=== PATIENT | female | born 1930 | race Caucasian/White ===

== ENCOUNTER → 2016-10-29 | Outpatient (CLI) | payer MEDICARE, OTHER ==
[~2016-10-29] MED LIST: AC500T PO; AMLO10TA2 PO; CHOL10002 PO; CIPR500T78 PO; CITA20TA12 PO; CITA20TA7 PO; CLON1TAB27 PO; CLON1TAB3 PO; CRAN450T9 PO; D-3 PO; DARI7.5T8 PO; DCS100C PO; ENXP80I.8 SC; FLUO20CA25 PO; FLUO20CA42 PO; HYDR50TA3 PO; IBUP-30 PO; IBUP-792 PO; IRON PO; LISI10TA2 PO; MELO-195 PO; MELO15TA39 PO; MULT-23 PO; MULT-904 PO; MULT-974 PO; OMEP-10 PO; OMEP20CA12 PO; OXYB10TA PO; OXYC-100 PO; OXYC-12 PO; PEDI1TAB36 PO; POTA10CA43 PO; SIMV20TA3 PO; WARFARIN PO; [UNRECOGNIZED DRUG - CODE] PO; [UNRECOGNIZED DRUG - OTHER] PO
[2016-10-29 08:37] LABS: BASOPHILS % (AUTO) 1 % (0-10); EOSINOPHILS # (AUTO) 0.2 10^3/uL (0.0-0.3); EOSINOPHILS % (AUTO) 3 % (0-10); LYMPHOCYTES # (AUTO) 1.6 X 10^3 (1.0-4.0); LYMPHOCYTES % (AUTO) 35 % (12-44); MEAN CORPUSCULAR HEMOGLOBIN 30 PG (25-34); MEAN CORPUSCULAR HGB CONC 33 G/DL (32-36); MEAN CORPUSCULAR VOLUME 93 FL (80-99); MONOCYTES # (AUTO) 0.6 X 10^3 (0.0-1.0); MONOCYTES % (AUTO) 13 % (0-12); NEUTROPHILS # (AUTO) 2.2 X 10^3 (1.8-7.8); NEUTROPHILS % (AUTO) 47 % (42-75); PLATELET COUNT 275 10^3/uL (130-400); RED BLOOD COUNT 4.79 10^6/uL (4.35-5.85); RED CELL DISTRIBUTION WIDTH 13.6 % (10.0-14.5); RETICULOCYTE % 0.76 % (0.50-2.40); WHITE BLOOD COUNT 4.6 10^3/uL (4.3-11.0)
[2016-10-29 08:44] LABS: PATH WILL NEED TO REVIEW SMEAR PATH TO REVIEW
[2016-10-29 08:53] LABS: EOSINOPHILS % (MANUAL) 3 %; LYMPHOCYTES % (MANUAL) 36 %; NEUTROPHILS % (MANUAL) 48 %
== END ==
LOC: LAB 08:14
PROVIDERS: ATTEND Nurse Practitioner Family
DX: D72.819 Decreased white blood cell count, unspecified (principal); D64.9 Anemia, unspecified
CPT/HCPCS: 36415; 85007; 85027; 85045

== ENCOUNTER 2017-08-08 21:21 | Inpatient (IN) | payer MEDICARE, OTHER ==
[~2017-08-08] VITALS: Ht 162.6 cm; Wt 73.0 kg
[~2017-08-08 21:21] MED LIST changes: -CITA20TA7 PO; +CITA20TA9 PO; +CLON1TAB4 PO
--- OUTSIDE RECORDS SUMMARY | 2017-08-08 21:26 | XMS REPORT | CCD ---
Author Author Morenita Don MD, [facility] Address [address] [place] [address] Phone Care Team Providers Care Director Of Communications Name Role Phone PP Unavailable CCM Unavailable Summary Purpose Interface Exchange Insurance Providers Payer name Policy type / Coverage type Covered republican ID Effective Begin Date Effective End Date [employer] Medicare Part B [id number] 2016 Unknown [employer] Medicare Part B [id number] Unknown Family history Father Diagnosis Age At Onset Myocardial infarction Unknown Mother Diagnosis Age At Onset Myocardial infarction Unknown Social History Social History Element Codes Description Effective Dates Marital status Unknown 11/29/2015 Number of children Unknown 2 son at 3hrs old 11/29/2015 Employment Unknown Retired 11/29/[address]: 752281503 Never smoker 11/29/[address]: 780164150 Never drinks alcohol 11/29/2015 Allergies, Adverse Reactions, Alerts Allergies, Adverse Reactions, Alerts data not found Past Medical History Illness Codes Condition Status Onset Date Resolved Date Essential (primary) hypertension ICD-9: 401.9 ICD-10: I10 Active 02/27/2016 Unknown Generalized anxiety disorder ICD-9: 300.02 ICD-10: F41.1 Active 02/27/2016 Unknown Major depressive disorder, recurrent, 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 Active 02/27/2016 Unknown Encounter for general adult medical examination without abnormal findings ICD-9: V70.0 ICD-10: Z00.00 Active 08/23/2016 Unknown Mixed hyperlipidemia ICD-9: 272.2 ICD-10: E78.2 Active 11/28/2015 Unknown Hypertension Unknown Active 08/21/2016 Unknown Gastro-esophageal reflux disease without esophagitis ICD-9: 530.81 ICD-10: K21.9 Active 05/28/2016 Unknown Problems Condition Codes Effective Dates Condition Status Essential (primary) hypertension ICD-9: 401.9 ICD-10: I10 02/27/2016 Active Generalized anxiety disorder ICD-9: 300.02 ICD-10: F41.1 02/27/2016 Active Major depressive disorder, recurrent, 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 02/27/2016 Active Encounter for general adult medical examination without abnormal findings ICD-9: V70.0 ICD-10: Z00.00 08/23/2016 Active Mixed hyperlipidemia ICD-9: 272.2 ICD-10: E78.2 11/28/2015 Active Hypertension Unknown 08/21/2016 Active Gastro-esophageal reflux disease without esophagitis ICD-9: 530.81 ICD-10: K21.9 05/28/2016 Active Medications Medication Codes Instructions Start Date Stop Date Status Fill Instructions omeprazole 20 mg capsule,delayed release RxNorm: 415707 Capsule(s) TAKE 1 CAPSULE BY MOUTH EVERY DAY 06/03/2017 02/27/2018 Active Mobic 15 mg tablet RxNorm: 296139 Tablet(s) 1 TABLET(S) PO DAILY 06/03/2017 02/27/2018 Active amlodipine 10 mg tablet RxNorm: 111580 Tablet(s) TAKE 1 TABLET BY MOUTH EVERY DAY 06/03/2017 02/27/2018 Active metoprolol succinate ER 25 mg tablet,extended release 24 hr RxNorm: 115700 1 Tablet(s) PO daily 06/03/2017 02/27/2018 Active lisinopril 10 mg tablet RxNorm: 000017 Tablet(s) TAKE 1 TABLET BY MOUTH EVERY DAY 06/03/2017 02/27/2018 Active Lexapro 20 mg tablet RxNorm: 822459 1 Tablet(s) PO QPM 201702/27/2018 Active clonazepam 1 mg tablet RxNorm: 982505 1 Tablet(s) PO TID 201711/29/2017 Active potassium chloride ER 10 mEq tablet,extended release RxNorm: 246224 Tablet(s) TAKE 2 TABLETS BY MOUTH EVERY DAY 06/03/2017 02/27/2018 Active simvastatin 20 mg tablet RxNorm: 122203 Tablet(s) 1 TABLET(S) PO QPM 06/03/2017 02/27/2018 Active Mobic 15 mg tablet RxNorm: 157835 1 TABLET(S) PO DAILY 201606/02/2017 Inactive lisinopril 10 mg tablet RxNorm: 092472 TAKE 1 TABLET BY MOUTH EVERY DAY 04/05/2017 06/02/2017 Inactive metoprolol succinate ER 25 mg tablet,extended release 24 hr RxNorm: 955190 1 Tablet(s) PO daily 02/01/2017 06/02/2017 Inactive Lexapro 20 mg tablet RxNorm: 553871 1 Tablet(s) PO QPM TAKE 1 TABLET BY MOUTH EVERY EVENING 02/01/2017 02/01/2017 Inactive Lexapro 20 mg tablet RxNorm: 610474 1 Tablet(s) PO QPM 1 TABLET(S) PO QPM TAKE 1 TABLET BY MOUTH EVERY EVENING 02/01/2017 06/02/2017 Inactive Patient requests 90 days supply clonazepam 1 mg tablet RxNorm: 209707 1 Tablet(s) PO TID 201606/02/2017 Inactive Lexapro 20 mg tablet RxNorm: 943259 1 Tablet(s) PO QPM 1 TABLET(S) PO QPM TAKE 1 TABLET BY MOUTH EVERY EVENING 02/01/2017 01/31/2017 Inactive Patient requests 90 days supply metoprolol succinate ER 25 mg tablet,extended release 24 hr RxNorm: 000973 1 Tablet(s) PO daily 02/01/2017 01/31/2017 Inactive amlodipine 10 mg tablet RxNorm: 422958 TAKE 1 TABLET BY MOUTH EVERY DAY 01/15/2017 06/02/2017 Inactive potassium chloride ER 10 mEq tablet,extended release RxNorm: 995057 TAKE 2 TABLETS BY MOUTH EVERY DAY 12/04/201607/2017 Inactive Lexapro 20 mg tablet RxNorm: 663388 TAKE 1 TABLET BY MOUTH EVERY EVENING 11/12/2016 01/31/2017 Inactive omeprazole 20 mg capsule,delayed release RxNorm: 591828 TAKE 1 CAPSULE BY MOUTH EVERY DAY 10/29/2016 10/28/2016 Inactive omeprazole 20 mg capsule,delayed release RxNorm: 547050 TAKE 1 CAPSULE BY MOUTH EVERY DAY 10/29/2016 06/02/2017 Inactive L-Methylfolate 15 mg tablet RxNorm: 1 Tablet(s) PO daily 10/0801/31/2017 Inactive clonazepam 1 mg tablet RxNorm: 054790 1 Tablet(s) PO BID 201601/31/2017 Inactive L-Methylfolate 15 mg tablet RxNorm: 1 Tablet(s) PO daily 08/2810/07/2016 Inactive lisinopril 20 mg tablet RxNorm: 167870 1 Tablet(s) PO daily 11/18/2016 Inactive lisinopril 20 mg tablet RxNorm: 044074 1 Tablet(s) PO daily 11/18/2016 Inactive Deplin (algal oil) 15 mg-90.314 mg capsule RxNorm: 1 Capsule(s) PO daily 08/21/2016 08/27/2016 Inactive Lexapro 20 mg tablet RxNorm: 402852 1 TABLET(S) PO QPM 201610/24/2016 Inactive simvastatin 20 mg tablet RxNorm: 372122 1 TABLET(S) PO QPM 11/19/2016 Inactive Patient requests 90 days supply simvastatin 20 mg tablet RxNorm: 789071 1 Tablet(s) PO QPM 05/23/2016 Inactive Lexapro 20 mg tablet RxNorm: 875733 1 Tablet(s) PO QPM 1 TABLET(S) PO QPM 02/28/2016 08/25/2016 Inactive Patient requests 90 days supply Lexapro 20 mg tablet RxNorm: 724258 1 Tablet(s) PO QPM 201502/28/2016 Inactive clonazepam 1 mg tablet RxNorm: 230235 1 Tablet(s) PO BID 201505/25/2016 Inactive tramadol 50 mg tablet RxNorm: 638326 1 Tablet(s) PO Q6 as needed for pain 02/27/2016 04/11/2016 Inactive potassium chloride ER 10 mEq tablet,extended release RxNorm: 507203 TAKE 2 TABLETS BY MOUTH EVERY DAY 02/27/2016 Inactive citalopram 20 mg tablet RxNorm: 280585 1 Tablet(s) PO QAM 02/2602/27/2016 Inactive omeprazole 20 mg capsule,delayed release RxNorm: 798833 TAKE 1 CAPSULE BY MOUTH EVERY DAY 02/13/2016 10/28/2016 Inactive Mobic 15 mg tablet RxNorm: 097170 1 Tablet(s) PO daily 201502/03/2017 Inactive amlodipine 10 mg tablet RxNorm: 834238 1 Tablet(s) PO daily 05/201512/28/2015 Inactive Multiple Vitamins Daily tablet RxNorm: 1 Tablet(s) PO daily 12/28/2015 Inactive clonazepam 1 mg tablet RxNorm: 194611 1 Tablet(s) PO Q12H 11/2812/28/2015 Inactive Mobic 15 mg tablet RxNorm: 721675 1 Tablet(s) PO daily 201512/28/2015 Inactive lisinopril 10 mg tablet RxNorm: 239042 1 Tablet(s) PO daily 05/201512/26/2015 Inactive simvastatin 20 mg tablet RxNorm: 346675 1 Tablet(s) PO QPM 05/201512/28/2015 Inactive Colace 100 mg capsule RxNorm: 1546986 1 Capsule(s) PO daily 05/201511/29/2015 Inactive citalopram 20 mg tablet RxNorm: 369950 1 Tablet(s) PO QAM 11/2812/28/2015 Inactive potassium chloride ER 10 mEq tablet,extended release RxNorm: 570041 2 Tablet(s) PO daily 20meq daily 11/29/20152015 Inactive Coricidin HBP 10 mg-200 mg capsule RxNorm: 1450468 1 Capsule(s) PO PRN No Start Date Active cranberry 400 mg capsule RxNorm: 857932 1 Capsule(s) PO daily No Start Date Active Vitamin D3 1,000 unit tablet RxNorm: 062899 1 Tablet(s) PO daily No Start Date Active docusate sodium 100 mg tablet RxNorm: 8544530 1 Tablet(s) PO daily No Start Date Active Mobic 15 mg tablet RxNorm: 670023 1 Tablet(s) PO daily No Start Date 02/09/2016 Inactive Vitamin D3 1,000 unit tablet RxNorm: 452887 1 Tablet(s) PO daily No Start Date 06/02/2017 Inactive omeprazole 20 mg tablet,delayed release RxNorm: 490673 1 Tablet(s) PO daily No Start Date 06/02/2017 Inactive potassium chloride ER 10 mEq tablet,extended release RxNorm: 003818 2 Tablet(s) PO daily No Start Date 06/02/2017 Inactive clonazepam 1 mg tablet RxNorm: 936528 1 Tablet(s) PO BID No Start Date 02/26/2016 Inactive Aleve PM 220 mg-25 mg tablet RxNorm: 1267566 1 Tablet(s) PO daily No Start Date 05/27/2016 Inactive amlodipine 10 mg tablet RxNorm: 706723 1 Tablet(s) PO daily No Start Date 01/14/2017 Inactive lisinopril 10 mg tablet RxNorm: 366880 1 Tablet(s) PO daily No Start Date 08/20/2016 Inactive tramadol 50 mg tablet RxNorm: 773486 1 Tablet(s) PO Q6 PRN No Start Date 02/26/2016 Inactive Ultram 50 mg tablet RxNorm: 163157 1 Tablet(s) PO Q6 as needed No Start Date 11/28/2015 Inactive simvastatin 20 mg tablet RxNorm: 892028 1 Tablet(s) PO QHS No Start Date 06/02/2017 Inactive citalopram 20 mg tablet RxNorm: 625002 1 Tablet(s) PO daily No Start Date 02/26/2016 Inactive lisinopril 10 mg tablet RxNorm: 530239 1 Tablet(s) PO daily No Start Date 04/04/2017 Inactive omeprazole 20 mg capsule,delayed release RxNorm: 463474 1 Capsule(s) PO daily No Start Date 02/12/2016 Inactive Medication Administered No Medication Administered data Immunizations No Immunization data Assessments Condition Codes Effective Dates Essential (primary) hypertension ICD-10: I10 ICD-9: 401.9 02/01/2017 Generalized anxiety disorder ICD-10: F41.1 ICD-9: 300.02 02/01/2017 Major depressive disorder, recurrent, mild ICD-10: F33.0 ICD-9: 296.31 02/01/2017 Mixed hyperlipidemia ICD-10: E78.2 ICD-9: 272.2 08/23/2016 Encounter for general adult medical examination without abnormal findings ICD-10: Z00.00 ICD-9: V70.0 08/23/2016 Gastro-esophageal reflux disease without esophagitis ICD-10 : K21.9 ICD-9: 530.81 05/28/2016 Reason For Visit Reason For Visit Effective Dates Notes depression 02/01/2017 hypertension 08/21/2016 hypertension 05/28/2016 hypertension 02/28/2016 cerumen 11/29/2015 Results Observation Observation Code Item Item Code Result Date Lipid Ord30 CHOL 155 mg/dL 10/09/2016 Lipid Ord30 HDL 55.0 mg/dl 10/09/2016 Lipid Ord30 TRIG 121 mg/dL 10/09/2016 Lipid Ord30 LDL 76 mg/dL 10/09/2016 Lipid Ord30 C/HDL 2.8 Ratio 10/09/2016 Comp Metabolic Aod262 NA 136 mEq/L 10/09/2016 Comp Metabolic Qny192 K 4.9 mEq/L 10/09/2016 Comp Metabolic Qzx006 CL 97 mEq/L 10/09/2016 Comp Metabolic Smq469 CO2 30.0 mEq/L 10/09/2016 Comp Metabolic Mhq864 ANION GAP 14 10/09/2016 Comp Metabolic Jba234 GLUCOSE 66 mg/dL 10/09/2016 Comp Metabolic Pjw859 Creat 0.9 mg/dL 10/09/2016 Comp Metabolic Uwh461 eGFR 64 ml/min/1.73m2 10/09/2016 Comp Metabolic Ljf662 BUN 13 mg/dL 10/09/2016 Comp Metabolic Uld905 B/C Ratio 14.6 Ratio 10/09/2016 Comp Metabolic Oao796 CALCIUM 10.0 mg/dL 10/09/2016 Comp Metabolic Lvd228 ALK PHOS 59 U/L 10/09/2016 Comp Metabolic Grh237 AST(SGOT) 20 U/L 10/09/2016 Comp Metabolic Lri107 ALT(SGPT) 9 U/L 10/09/2016 Comp Metabolic Rfq245 BILI T 0.4 mg/dL 10/09/2016 Comp Metabolic Nii362 ALBUMIN 4.1 g/dL 10/09/2016 Comp Metabolic Rll900 TPRO 7.1 g/dL 10/09/2016 Comp Metabolic Clr625 GLOB 3.0 g/dL 10/09/2016 Comp Metabolic Gbd838 A/G Ratio 1.4 Ratio 10/09/2016 Comp Metabolic Wed249 Osmo 270 mOsmo 10/09/2016 Tsh Ord6 hTSH II 1.11 uIU/mL 10/09/2016 Cbc With Differential Ord2 WBC 4.46 K/ul 10/09/2016 Cbc With Differential Ord2 RBC 5.07 M/ul 10/09/2016 Cbc With Differential Ord2 HGB 15.8 g/dl 10/09/2016 Cbc With Differential Ord2 Neut% 50.2 % 10/09/2016 Cbc With Differential Ord2 HCT 47.6 % 10/09/2016 Cbc With Differential Ord2 MCV 93.9 fl 10/09/2016 Cbc With Differential Ord2 Lymph% 33.4 % 10/09/2016 Cbc With Differential Ord2 MCH 31.2 pg 10/09/2016 Cbc With Differential Ord2 [place]% 13.7 % 10/09/2016 Cbc With Differential Ord2 MCHC 33.2 pg 10/09/2016 Cbc With Differential Ord2 Eos% 2.0 % 10/09/2016 Cbc With Differential Ord2 PLT 244 K/ul 10/09/2016 Cbc With Differential Ord2 Baso% 0.7 % 10/09/2016 Cbc With Differential Ord2 RDW 13.9 % 10/09/2016 Cbc With Differential Ord2 Neut ABS# 2.24 K/ul 10/09/2016 Cbc With Differential Ord2 Lymph ABS# 1.49 K/ul 10/09/2016 Cbc With Differential Ord2 [place] ABS# 0.6 K/ul 10/09/2016 Cbc With Differential Ord2 Eos ABS# 0.1 K/ul 10/09/2016 Cbc With Differential Ord2 Baso ABS# 0.0 K/ul 10/09/2016 Review of Systems System Result Effective Dates Constitutional No recent illness 2016 Constitutional No anorexia 02/01/2017 Constitutional No night sweats 2016 Constitutional No chills 02/01/2017 Constitutional No diaphoresis 02/01/2017 Constitutional No fatigue 02/01/2017 Constitutional No fever 02/01/2017 Constitutional insomnia 02/01/2017 Constitutional No malaise 02/01/2017 Constitutional No weight loss 02/01/2017 Constitutional No weight gain 02/01/2017 Eyes No eye discharge 02/01/2017 Eyes No eye erythema 02/01/2017 Ears/Nose/Throat/Neck No dizziness 2016 Ears/Nose/Throat/Neck No headache 2016 Cardiovascular No chest pain/pressure 09/2016 Cardiovascular No dyspnea 02/01/2017 Cardiovascular edema 02/01/2017 Respiratory No productive sputum 2016 Respiratory No chest congestion 2016 Respiratory No cough 02/01/2017 Gastrointestinal No abdominal pain 2016 Gastrointestinal No constipation 2016 Gastrointestinal No diarrhea 02/01/2017 Genitourinary/Nephrology No dysuria 02/01 Genitourinary/Nephrology urinary incontinence 02/01/2017 Musculoskeletal No joint complaint 2016 Dermatologic No rash 02/01/2017 Dermatologic No sores 02/01/2017 Neurologic No alteration of consciousness 02/01/2017 Psychiatric anxiety 02/01/2017 Psychiatric depression 02/01/2017 Endocrine No dry or coarse skin 2016 Hematologic/Lymphatic No abnormal ecchymoses 02/01/2017 Constitutional recent illness 08/21/2016 Constitutional No anorexia 08/21/2016 Constitutional No night sweats 2016 Constitutional No chills 08/21/2016 Constitutional No diaphoresis 08/21/2016 Constitutional fatigue 08/21/2016 Constitutional No fever 08/21/2016 Constitutional insomnia 08/21/2016 Constitutional No malaise 08/21/2016 Constitutional No weight loss 08/21/2016 Constitutional No weight gain 08/21/2016 Constitutional No obesity 08/21/2016 Eyes No eye pain 08/21/2016 Eyes No vision change 08/21/2016 Ears/Nose/Throat/Neck No dizziness 2016 Ears/Nose/Throat/Neck No headache 2016 Cardiovascular No chest pain/pressure Cardiovascular No dyspnea 08/21/2016 Respiratory No chest congestion 2016 Respiratory No chest tightness 2016 Respiratory No cigarette smoking 2016 Respiratory No cough 08/21/2016 Respiratory No productive sputum 2016 Respiratory No pedal edema 08/21/2016 Gastrointestinal No constipation 2016 Gastrointestinal No diarrhea 08/21/2016 Gastrointestinal No abdominal pain 2016 Gastrointestinal No nausea 08/21/2016 Gastrointestinal No vomiting 08/21/2016 Genitourinary/Nephrology No anuria/oliguria 08/21/2016 Genitourinary/Nephrology No dysuria 08/21 Genitourinary/Nephrology urinary urgency 08/21/2016 Genitourinary/Nephrology urinary incontinence 08/21/2016 Musculoskeletal stiffness 08/21/2016 Musculoskeletal swelling 08/21/2016 Musculoskeletal arthralgia(s) 08/21/2016 Musculoskeletal back pain 08/21/2016 Musculoskeletal joint complaint 2016 Musculoskeletal myalgias 08/21/2016 Dermatologic No rash 08/21/2016 Dermatologic No sores 08/21/2016 Neurologic No alteration of consciousness 08/21/2016 Neurologic No headache 08/21/2016 Psychiatric anxiety 08/21/2016 Psychiatric depression 08/21/2016 Endocrine No polydipsia 08/21/2016 Endocrine No polyuria 08/21/2016 Hematologic/Lymphatic No abnormal ecchymoses 08/21/2016 Hematologic/Lymphatic No abnormal bleeding and bruising 08/21/2016 Constitutional No recent illness 2016 Constitutional No anorexia 05/28/2016 Constitutional No night sweats 2016 Constitutional No chills 05/28/2016 Constitutional No diaphoresis 05/28/2016 Constitutional No fatigue 05/28/2016 Constitutional No fever 05/28/2016 Constitutional insomnia 05/28/2016 Constitutional No malaise 05/28/2016 Constitutional No weight loss 05/28/2016 Constitutional No weight gain 05/28/2016 Eyes No eye discharge 05/28/2016 Eyes No eye erythema 05/28/2016 Ears/Nose/Throat/Neck No dizziness 2016 Ears/Nose/Throat/Neck No headache 2016 Cardiovascular No chest pain/pressure Cardiovascular No dyspnea 05/28/2016 Cardiovascular edema 05/28/2016 Respiratory No productive sputum 2016 Respiratory No chest congestion 2016 Respiratory No cough 05/28/2016 Gastrointestinal No abdominal pain 2016 Gastrointestinal No constipation 2016 Gastrointestinal No diarrhea 05/28/2016 Genitourinary/Nephrology No dysuria 05/28 Genitourinary/Nephrology urinary frequency 05/28/2016 Genitourinary/Nephrology urinary incontinence 05/28/2016 Musculoskeletal No joint complaint 2016 Dermatologic No rash 05/28/2016 Dermatologic No sores 05/28/2016 Neurologic No alteration of consciousness 05/28/2016 Psychiatric anxiety 05/28/2016 Psychiatric depression 05/28/2016 Endocrine No dry or coarse skin 2016 Hematologic/Lymphatic No abnormal ecchymoses 05/28/2016 Constitutional No recent illness 2015 Constitutional No night sweats 2015 Constitutional No chills 02/28/2016 Constitutional No diaphoresis 02/28/2016 Constitutional No fatigue 02/28/2016 Constitutional No fever 02/28/2016 Constitutional No malaise 02/28/2016 Constitutional No weight gain 02/28/2016 Eyes No eye discharge 02/28/2016 Eyes No eye erythema 02/28/2016 Ears/Nose/Throat/Neck No dizziness 2015 Ears/Nose/Throat/Neck No headache 2015 Cardiovascular No chest pain/pressure 04/2015 Cardiovascular No dyspnea 02/28/2016 Cardiovascular edema 02/28/2016 Respiratory No productive sputum 2015 Respiratory No chest congestion 2015 Respiratory No cough 02/28/2016 Gastrointestinal No abdominal pain 2015 Gastrointestinal No constipation 2015 Gastrointestinal No diarrhea 02/28/2016 Genitourinary/Nephrology No dysuria 02/27 Genitourinary/Nephrology urinary frequency 02/28/2016 Genitourinary/Nephrology urinary incontinence 02/28/2016 Musculoskeletal No joint complaint 2015 Dermatologic No rash 02/28/2016 Dermatologic No sores 02/28/2016 Neurologic No alteration of consciousness 02/28/2016 Psychiatric anxiety 02/28/2016 Psychiatric depression 02/28/2016 Endocrine No dry or coarse skin 2015 Hematologic/Lymphatic No abnormal ecchymoses 02/28/2016 Constitutional No anorexia 02/28/2016 Constitutional insomnia 02/28/2016 Constitutional No weight loss 02/28/2016 Constitutional No recent illness 2015 Constitutional anorexia 11/29/2015 Constitutional No night sweats 2015 Constitutional No chills 11/29/2015 Constitutional No diaphoresis 11/29/2015 Constitutional No fatigue 11/29/2015 Constitutional No fever 11/29/2015 Constitutional No malaise 11/29/2015 Constitutional insomnia 11/29/2015 Constitutional weight loss 11/29/2015 Constitutional No weight gain 11/29/2015 Psychiatric anxiety 11/29/2015 Psychiatric depression 11/29/2015 Eyes No eye discharge 11/29/2015 Eyes No eye erythema 11/29/2015 Ears/Nose/Throat/Neck No dizziness 2015 Ears/Nose/Throat/Neck No headache 2015 Cardiovascular No chest pain/pressure 05/2015 Cardiovascular No dyspnea 11/29/2015 Respiratory No productive sputum 2015 Respiratory No chest congestion 2015 Respiratory No cough 11/29/2015 Cardiovascular edema 11/29/2015 Gastrointestinal No abdominal pain 2015 Gastrointestinal No constipation 2015 Gastrointestinal No diarrhea 11/29/2015 Genitourinary/Nephrology No dysuria 11/28 Genitourinary/Nephrology urinary incontinence 11/29/2015 Genitourinary/Nephrology urinary frequency 11/29/2015 Musculoskeletal No joint complaint 2015 Dermatologic No rash 11/29/2015 Dermatologic No sores 11/29/2015 Neurologic No alteration of consciousness 11/29/2015 Endocrine No dry or coarse skin 2015 Hematologic/Lymphatic No abnormal ecchymoses 11/29/2015 Physical Exam Exam Name System Name Item Name Status Result Effective Dates Notes Full Exam - General 1994 Constitutional general appearance Overall: well developed 02/01/2017 None Full Exam - General 1994 Constitutional general appearance Overall: in no acute distress 02/01/2017 None Full Exam - General 1994 Constitutional general appearance Overall: well nourished 02/01/2017 None Full Exam - General 1994 Eyes conjunctiva /eyelids Overall: conjunctiva clear 02/01/2017 None Full Exam - General 1994 Eyes pupils and irises Overall: pupils equal, round, reactive to light and accomodation 02/01/2017 None Full Exam - General 1994 Ears/Nose/Throat otoscopic exam Overall: external auditory canals clear 02/01/2017 None Full Exam - General 1994 Ears/Nose/Throat otoscopic exam Overall: tympanic membranes clear 02/01/2017 None Full Exam - General 1994 Ears/Nose/Throat lips/teeth/gingiva Teeth: wears dentures 02/01/2017 [facility] Full Exam - General 1994 Respiratory auscultation Overall: breath sounds clear bilaterally 02/01/2017 None Full Exam - General 1994 Respiratory respiratory effort/rhythm Overall: no retractions 02/01/2017 None Full Exam - General 1994 Respiratory respiratory effort/rhythm Overall: normal rate 02/01/2017 None Full Exam - General 1994 Cardiovascular extremities Overall: no clubbing 02/01/2017 None Full Exam - General 1994 Cardiovascular auscultation of heart Overall: regular rate 02/01/2017 None Full Exam - General 1994 Cardiovascular auscultation of heart Overall: normal heart sounds 02/01/2017 None Full Exam - General 1994 Cardiovascular auscultation of heart Systolic murmur: holosystolic 02/01/2017 None Full Exam - General 1994 Cardiovascular auscultation of heart Systolic murmur grade: II/ 02/01/2017 None Full Exam - General 1994 Abdomen abdominal exam Overall: no tenderness 02/01/2017 None Full Exam - General 1994 Abdomen abdominal exam Overall: normal bowel sounds 02/01/2017 None Full Exam - General 1994 Lymphatic neck nodes Overall: anterior cervical chain benign 02/01/2017 None Full Exam - General 1994 Lymphatic neck nodes Overall: posterior cervical chain benign 02/01/2017 None Full Exam - General 1994 Musculoskeletal upper extremity Overall: upper arm non- tender, without crepitus or defects 02/01/2017 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 Full Exam - General 1994 Musculoskeletal gait and station Overall: normal gait 02/01/2017 None Full Exam - General 1994 Musculoskeletal gait and station Overall: normal station 02/01/2017 None Full Exam - General 1994 Musculoskeletal head and neck Overall: head atraumatic 02/01/2017 None Full Exam - General 1994 Integument inspection of skin Overall: few scattered moles, no gross abnormalities 02/01/2017 None Full Exam - General 1994 Neurologic cranial nerves Overall: crainial nerves 2 - 12 grossly intact 02/01/2017 None Full Exam - General 1994 Psychiatric orientation/consciousness Overall: oriented to person, place and time 02/01/2017 None Full Exam - General 1994 Psychiatric mood and affect Mood: depressed 02/01/2017 None Full Exam - General 1994 Psychiatric mood and affect Mood: anxious 02/01/2017 None Full Exam - General 1994 Psychiatric mood and affect Affect: mood congruent 02/01/2017 None Full Exam - General 1994 Constitutional general appearance Development: well developed 08/21/2016 None Full Exam - General 1994 Constitutional general appearance Development: appears stated age 0408/21/2016 None Full Exam - General 1994 Eyes conjunctiva /eyelids Overall: conjunctiva clear 08/21/2016 None Full Exam - General 1994 Eyes conjunctiva /eyelids Overall: cornea clear 08/21/2016 None Full Exam - General 1994 Eyes pupils and irises Overall: pupils equal, round, reactive to light and accomodation 08/21/2016 None Full Exam - General 1994 Ears/Nose/Throat otoscopic exam External auditory canal: partial cerumen occlusion 08/21/2016 None Full Exam - General 1994 Ears/Nose/Throat otoscopic exam Overall: tympanic membranes clear 08/21/2016 None Full Exam - General 1994 Ears/Nose/Throat lips/teeth/gingiva Overall: benign lips 08/21/2016 None Full Exam - General 1994 Ears/Nose/Throat lips/teeth/gingiva Teeth: wears dentures 08/21/2016 None Full Exam - General 1994 Ears/Nose/Throat oral cavity/pharynx/larynx Overall: oral mucosa clear 08/21/2016 None Full Exam - General 1994 Neck thyroid Overall: normal size None Full Exam - General 1994 Neck thyroid Overall: normal consistency 08/21/2016 None Full Exam - General 1994 Neck inspection of neck Overall: normal size 08/21/2016 None Full Exam - General 1994 Neck inspection of neck Overall: normal appearance 08/21/2016 None Full Exam - General 1994 Respiratory auscultation Overall: breath sounds clear bilaterally 08/21/2016 None Full Exam - General 1994 Respiratory respiratory effort/rhythm Overall: no retractions 08/21/2016 None Full Exam - General 1994 Respiratory respiratory effort/rhythm Overall: normal rate 08/21/2016 None Full Exam - General 1994 Cardiovascular auscultation of heart Overall: regular rate 08/21/2016 None Full Exam - General 1994 Cardiovascular auscultation of heart Overall: normal heart sounds 08/21/2016 None Full Exam - General 1994 Abdomen abdominal exam Overall: no tenderness 08/21/2016 None Full Exam - General 1994 Abdomen abdominal exam Overall: normal bowel sounds 08/21/2016 None Full Exam - General 1994 Lymphatic neck nodes Overall: anterior cervical chain benign 08/21/2016 None Full Exam - General 1994 Lymphatic neck nodes Overall: posterior cervical chain benign 08/21/2016 None Full Exam - General 1994 Musculoskeletal gait and station Gait: asymmetric 08/21/2016 None Full Exam - General 1994 Musculoskeletal gait and station Gait: abnormal stride length 08/21/2016 None Full Exam - General 1994 Integument inspection of skin Overall: few scattered moles, no gross abnormalities 08/21/2016 None Full Exam - General 1994 Musculoskeletal upper extremity Stability - elbow: hypermobile 08/21/2016 None Full Exam - General 1994 Musculoskeletal upper extremity Stability - elbow: dislocated 08/21/2016 Chronic from accident 10+ years ago Full Exam - General 1994 Neurologic mental status Overall: alert 08/21/2016 None Full Exam - General 1994 Neurologic mental status Overall: oriented 08/21/2016 None Full Exam - General 1994 Neurologic gait Tandem walking: unsteady 08/21/2016 uses walker Full Exam - General 1994 Neurologic motor Appearance: atrophy 08/21/2016 None Full Exam - General 1994 Neurologic motor Tone: hypotonia 08/21/2016 None Full Exam - General 1994 Psychiatric orientation/consciousness Overall: oriented to person, place and time 08/21/2016 None Full Exam - General 1994 Psychiatric mood and affect Mood: anxious 08/21/2016 None Full Exam - General 1994 Psychiatric mood and affect Mood: depressed 08/21/2016 None Full Exam - General 1994 Psychiatric appearance Overall: well-groomed, good eye contact 08/21/2016 None Full Exam - General 1994 Constitutional general appearance Overall: well developed 05/28/2016 None Full Exam - General 1994 Constitutional general appearance Overall: in no acute distress 05/28/2016 None Full Exam - General 1994 Constitutional general appearance Overall: well nourished 05/28/2016 None Full Exam - General 1994 Eyes conjunctiva /eyelids Overall: conjunctiva clear 05/28/2016 None Full Exam - General 1994 Eyes pupils and irises Overall: pupils equal, round, reactive to light and accomodation 05/28/2016 None Full Exam - General 1994 Ears/Nose/Throat otoscopic exam Overall: external auditory canals clear 05/28/2016 None Full Exam - General 1994 Ears/Nose/Throat otoscopic exam Overall: tympanic membranes clear 05/28/2016 None Full Exam - General 1994 Ears/Nose/Throat lips/teeth/gingiva Teeth: wears dentures 05/28/2016 UPPER Full Exam - General 1994 Respiratory auscultation Overall: breath sounds clear bilaterally 05/28/2016 None Full Exam - General 1994 Respiratory respiratory effort/rhythm Overall: no retractions 05/28/2016 None Full Exam - General 1994 Respiratory respiratory effort/rhythm Overall: normal rate 05/28/2016 None Full Exam - General 1994 Cardiovascular extremities Overall: no clubbing 05/28/2016 None Full Exam - General 1994 Cardiovascular auscultation of heart Overall: regular rate 05/28/2016 None Full Exam - General 1994 Cardiovascular auscultation of heart Overall: normal heart sounds 05/28/2016 None Full Exam - General 1994 Cardiovascular auscultation of heart Systolic murmur: holosystolic 05/28/2016 None Full Exam - General 1994 Cardiovascular auscultation of heart Systolic murmur grade: II/ 05/28/2016 None Full Exam - General 1994 Abdomen abdominal exam Overall: no tenderness 05/28/2016 None Full Exam - General 1994 Abdomen abdominal exam Overall: normal bowel sounds 05/28/2016 None Full Exam - General 1994 Lymphatic neck nodes Overall: anterior cervical chain benign 05/28/2016 None Full Exam - General 1994 Lymphatic neck nodes Overall: posterior cervical chain benign 05/28/2016 None Full Exam - General 1994 Musculoskeletal upper extremity Overall: upper arm non- tender, without crepitus or defects 05/28/2016 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 Full Exam - General 1994 Musculoskeletal gait and station Overall: normal gait 05/28/2016 None Full Exam - General 1994 Musculoskeletal gait and station Overall: normal station 05/28/2016 None Full Exam - General 1994 Musculoskeletal head and neck Overall: head atraumatic 05/28/2016 None Full Exam - General 1994 Integument inspection of skin Overall: few scattered moles, no gross abnormalities 05/28/2016 None Full Exam - General 1994 Neurologic cranial nerves Overall: crainial nerves 2 - 12 grossly intact 05/28/2016 None Full Exam - General 1994 Psychiatric orientation/consciousness Overall: oriented to person, place and time 05/28/2016 None Full Exam - General 1994 Psychiatric mood and affect Mood: depressed 05/28/2016 None Full Exam - General 1994 Psychiatric mood and affect Mood: anxious 05/28/2016 None Full Exam - General 1994 Psychiatric mood and affect Affect: mood congruent 05/28/2016 None Full Exam - General 1994 Constitutional general appearance Overall: well developed 02/28/2016 None Full Exam - General 1994 Constitutional general appearance Overall: in no acute distress 02/28/2016 None Full Exam - General 1994 Constitutional general appearance Overall: well nourished 02/28/2016 None Full Exam - General 1994 Eyes conjunctiva /eyelids Overall: conjunctiva clear 02/28/2016 None Full Exam - General 1994 Eyes pupils and irises Overall: pupils equal, round, reactive to light and accomodation 02/28/2016 None Full Exam - General 1994 Ears/Nose/Throat otoscopic exam Overall: external auditory canals clear 02/28/2016 None Full Exam - General 1994 Ears/Nose/Throat otoscopic exam Overall: tympanic membranes clear 02/28/2016 None Full Exam - General 1994 Ears/Nose/Throat lips/teeth/gingiva Teeth: wears dentures 02/28/2016 [facility] Full Exam - General 1994 Respiratory auscultation Overall: breath sounds clear bilaterally 02/28/2016 None Full Exam - General 1994 Respiratory respiratory effort/rhythm Overall: no retractions 02/28/2016 None Full Exam - General 1994 Respiratory respiratory effort/rhythm Overall: normal rate 02/28/2016 None Full Exam - General 1994 Cardiovascular extremities Overall: no clubbing 02/28/2016 None Full Exam - General 1994 Cardiovascular auscultation of heart Overall: regular rate 02/28/2016 None Full Exam - General 1994 Cardiovascular auscultation of heart Overall: normal heart sounds 02/28/2016 None Full Exam - General 1994 Cardiovascular auscultation of heart Systolic murmur: holosystolic 02/28/2016 None Full Exam - General 1994 Cardiovascular auscultation of heart Systolic murmur grade: II/ 02/28/2016 None Full Exam - General 1994 Abdomen abdominal exam Overall: no tenderness 02/28/2016 None Full Exam - General 1994 Abdomen abdominal exam Overall: normal bowel sounds 02/28/2016 None Full Exam - General 1994 Lymphatic neck nodes Overall: anterior cervical chain benign 02/28/2016 None Full Exam - General 1994 Lymphatic neck nodes Overall: posterior cervical chain benign 02/28/2016 None Full Exam - General 1994 Musculoskeletal upper extremity Overall: upper arm non- tender, without crepitus or defects 02/28/2016 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 Full Exam - General 1994 Musculoskeletal gait and station Overall: normal gait 02/28/2016 None Full Exam - General 1994 Musculoskeletal gait and station Overall: normal station 02/28/2016 None Full Exam - General 1994 Musculoskeletal head and neck Overall: head atraumatic 02/28/2016 None Full Exam - General 1994 Integument inspection of skin Overall: few scattered moles, no gross abnormalities 02/28/2016 None Full Exam - General 1994 Neurologic cranial nerves Overall: crainial nerves 2 - 12 grossly intact 02/28/2016 None Full Exam - General 1994 Psychiatric orientation/consciousness Overall: oriented to person, place and time 02/28/2016 None Full Exam - General 1994 Psychiatric mood and affect Mood: depressed 02/28/2016 None Full Exam - General 1994 Psychiatric mood and affect Mood: anxious 02/28/2016 None Full Exam - General 1994 Psychiatric mood and affect Affect: mood congruent 02/28/2016 None Full Exam - General 1994 Constitutional general appearance Overall: well developed 11/29/2015 None Full Exam - General 1994 Constitutional general appearance Overall: in no acute distress 11/29/2015 None Full Exam - General 1994 Constitutional general appearance Overall: well nourished 11/29/2015 None Full Exam - General 1994 Psychiatric orientation/consciousness Overall: oriented to person, place and time 11/29/2015 None Full Exam - General 1994 Psychiatric mood and affect Mood: anxious 11/29/2015 None Full Exam - General 1994 Psychiatric mood and affect Mood: depressed 11/29/2015 None Full Exam - General 1994 Psychiatric mood and affect Affect: mood congruent 11/29/2015 None Full Exam - General 1994 Neurologic cranial nerves Overall: crainial nerves 2 - 12 grossly intact 11/29/2015 None Full Exam - General 1994 Integument inspection of skin Overall: few scattered moles, no gross abnormalities 11/29/2015 None Full Exam - General 1994 Musculoskeletal gait and station Overall: normal gait 11/29/2015 None Full Exam - General 1994 Musculoskeletal gait and station Overall: normal station 11/29/2015 None Full Exam - General 1994 Musculoskeletal head and neck Overall: head atraumatic 11/29/2015 None Full Exam - General 1994 Lymphatic neck nodes Overall: posterior cervical chain benign 11/29/2015 None Full Exam - General 1994 Lymphatic neck nodes Overall: anterior cervical chain benign 11/29/2015 None Full Exam - General 1994 Abdomen abdominal exam Overall: no tenderness 11/29/2015 None Full Exam - General 1994 Abdomen abdominal exam Overall: normal bowel sounds 11/29/2015 None Full Exam - General 1994 Cardiovascular auscultation of heart Overall: regular rate 11/29/2015 None Full Exam - General 1994 Cardiovascular auscultation of heart Overall: normal heart sounds 11/29/2015 None Full Exam - General 1994 Cardiovascular auscultation of heart Systolic murmur: holosystolic 11/29/2015 None Full Exam - General 1994 Cardiovascular auscultation of heart Systolic murmur grade: II/ 11/29/2015 None Full Exam - General 1994 Cardiovascular extremities Overall: no clubbing 11/29/2015 None Full Exam - General 1994 Respiratory auscultation Overall: breath sounds clear bilaterally 11/29/2015 None Full Exam - General 1994 Respiratory respiratory effort/rhythm Overall: no retractions 11/29/2015 None Full Exam - General 1994 Respiratory respiratory effort/rhythm Overall: normal rate 11/29/2015 None Full Exam - General 1994 Ears/Nose/Throat otoscopic exam Overall: external auditory canals clear 11/29/2015 None Full Exam - General 1994 Ears/Nose/Throat otoscopic exam Overall: tympanic membranes clear 11/29/2015 None Full Exam - General 1994 Ears/Nose/Throat lips/teeth/gingiva Teeth: wears dentures 11/29/2015 UPPER Full Exam - General 1994 Eyes conjunctiva /eyelids Overall: conjunctiva clear 11/29/2015 None Full Exam - General 1994 Eyes pupils and irises Overall: pupils equal, round, reactive to light and accomodation 11/29/2015 None Full Exam - General 1994 Musculoskeletal upper extremity Overall: upper arm non- tender, without crepitus or defects 11/29/2015 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 Procedures No Procedures data Vital Signs Date Vital 02/01/2017 Blood Pressure 1: 164/82 Code : 8480-6 BMI: 26.0 Code : 10210-9 Heart Rate 1 : 120 bpm Height: 5'5" SpO2: 95% Weight: 156 lbs 08/21/2016 Blood Pressure 1: 166/80 Code : 8480-6 BMI: 25.8 Code : 46709-8 Heart Rate 1 : 105 bpm Height: 5'5" SpO2: 95% Weight: 155 lbs 05/28/2016 Blood Pressure 1: 142/74 Code : 8480-6 BMI: 25.3 Code : 69079-8 Heart Rate 1 : 104 bpm Height: 5'5" SpO2: 96% Weight: 152 lbs 02/28/2016 Blood Pressure 1: 130/70 Code : 8480-6 BMI: 26.0 Code : 87235-7 Heart Rate 1 : 100 bpm Height: 5'5" SpO2: 96% Weight: 156 lbs 11/29/2015 Blood Pressure 1: 130/70 Code : 8480-6 BMI: 25.5 Code : 15444-2 Heart Rate 1 : 86 bpm Height: 5'5" SpO2: 96% Weight: 153 lbs Functional Status No Functional Status data History of Present Illness Symptom Name Status Result Effective Date Notes hypertension Quality intermittent 02/01/2017 None hypertension Onset and Resolution ongoing 02/01/2017 None hypertension Onset of Symptom during adulthood 02/01/2017 None hypertension Blood Pressure Values not checking blood pressure at home 02/01/2017 None hypertension Severity not consistently severe symptoms, the symptoms fluctuate from no symptoms to anxiety and headaches 02/01/2017 None hypertension Triggers stress 02/01/2017 None hypertension Alleviating Factors medication 02/01/2017 None hypertension Pertinent Findings anxiety 02/01/2017 None hypertension Pertinent Findings decreased energy 02/01/2017 None hypertension Pertinent Findings Denies dizziness 02/01/2017 None hypertension Pertinent Findings Denies dyspnea 02/01/2017 None hypertension Pertinent Findings edema 02/01/2017 ankles anxiety Quality chronic 02/01/2017 None anxiety Onset and Resolution ongoing 02/01/2017 None anxiety Onset of Symptom _ years ago 02/01/2017 None anxiety Limitation on Activities moderately limits activities 02/01/2017 None anxiety Significant Family History anxiety disorder 02/01/2017 None anxiety Triggers no known associated factors 02/01/2017 None anxiety Pertinent Findings Denies dizziness 02/01/2017 None anxiety Pertinent Findings Denies dyspnea 02/01/2017 None anxiety Pertinent Findings insomnia 02/01/2017 None anxiety Pertinent Findings Denies lightheadedness 02/01/2017 None depression Quality constant 02/01/2017 None depression Onset and Resolution sudden in onset 02/01/2017 None depression Onset of Symptom 4 months ago 02/01/2017 None depression Frequency of Episodes daily 02/01/2017 None hypertension Frequency of Episodes increasing 02/01/2017 None anxiety Frequency of Episodes increasing 02/01/2017 None hypertension Quality intermittent 08/21/2016 None hypertension Onset and Resolution ongoing 08/21/2016 None hypertension Onset of Symptom during adulthood 08/21/2016 None hypertension Blood Pressure Values not checking blood pressure at home 08/21/2016 None hypertension Severity not consistently severe symptoms, the symptoms fluctuate from no symptoms to anxiety and headaches 08/21/2016 None hypertension Frequency of Episodes unchanged 08/21/2016 None hypertension Triggers stress 08/21/2016 None hypertension Alleviating Factors medication 08/21/2016 None hypertension Pertinent Findings anxiety 08/21/2016 None hypertension Pertinent Findings decreased energy 08/21/2016 None hypertension Pertinent Findings Denies dizziness 08/21/2016 None hypertension Pertinent Findings Denies dyspnea 08/21/2016 None hypertension Pertinent Findings edema 08/21/2016 ankles anxiety Quality chronic 08/21/2016 None anxiety Onset and Resolution ongoing 08/21/2016 None anxiety Onset of Symptom _ years ago 08/21/2016 None anxiety Limitation on Activities moderately limits activities 08/21/2016 None anxiety Frequency of Episodes unchanged 08/21/2016 None anxiety Significant Family History anxiety disorder 08/21/2016 None anxiety Triggers no known associated factors 08/21/2016 None anxiety Pertinent Findings insomnia 08/21/2016 None anxiety Pertinent Findings Denies lightheadedness 08/21/2016 None anxiety Pertinent Findings Denies dizziness 08/21/2016 None anxiety Pertinent Findings Denies dyspnea 08/21/2016 None hypertension Quality intermittent 05/28/2016 None hypertension Onset and Resolution ongoing 05/28/2016 None hypertension Onset of Symptom during adulthood 05/28/2016 None hypertension Blood Pressure Values not checking blood pressure at home 05/28/2016 None hypertension Severity not consistently severe symptoms, the symptoms fluctuate from no symptoms to anxiety and headaches 05/28/2016 None hypertension Frequency of Episodes unchanged 05/28/2016 None hypertension Triggers stress 05/28/2016 None hypertension Alleviating Factors medication 05/28/2016 None hypertension Pertinent Findings anxiety 05/28/2016 None hypertension Pertinent Findings decreased energy 05/28/2016 None hypertension Pertinent Findings Denies dizziness 05/28/2016 None hypertension Pertinent Findings Denies dyspnea 05/28/2016 None anxiety Quality chronic 05/28/2016 None anxiety Onset and Resolution ongoing 05/28/2016 None anxiety Onset of Symptom _ years ago 05/28/2016 None anxiety Limitation on Activities moderately limits activities 05/28/2016 None anxiety Frequency of Episodes unchanged 05/28/2016 None anxiety Significant Family History anxiety disorder 05/28/2016 None anxiety Triggers no known associated factors 05/28/2016 None anxiety Pertinent Findings insomnia 05/28/2016 None hypertension Pertinent Findings edema 05/28/2016 ankles hypertension Quality intermittent 02/28/2016 None hypertension Onset and Resolution ongoing 02/28/2016 None hypertension Onset of Symptom during adulthood 02/28/2016 None hypertension Blood Pressure Values not checking blood pressure at home 02/28/2016 None hypertension Severity not consistently severe symptoms, the symptoms fluctuate from no symptoms to anxiety and headaches 02/28/2016 None hypertension Frequency of Episodes unchanged 02/28/2016 None hypertension Triggers stress 02/28/2016 None hypertension Alleviating Factors medication 02/28/2016 None hypertension Pertinent Findings anxiety 02/28/2016 None hypertension Pertinent Findings decreased energy 02/28/2016 None hypertension Pertinent Findings Denies dizziness 02/28/2016 None hypertension Pertinent Findings Denies dyspnea 02/28/2016 None anxiety Quality chronic 02/28/2016 None anxiety Onset and Resolution ongoing 02/28/2016 None anxiety Onset of Symptom _ years ago 02/28/2016 None anxiety Limitation on Activities moderately limits activities 02/28/2016 None anxiety Frequency of Episodes unchanged 02/28/2016 None anxiety Significant Family History anxiety disorder 02/28/2016 None anxiety Triggers no known associated factors 02/28/2016 None anxiety Pertinent Findings insomnia 02/28/2016 None cerumen Location in both ears 11/29/2015 None cerumen Quality worsening 11/29/2015 None cerumen Onset and Resolution ongoing 11/29/2015 None cerumen Pertinent Findings Denies cough 11/29/2015 None hypertension Quality intermittent 11/29/2015 None hypertension Onset and Resolution ongoing 11/29/2015 None hypertension Blood Pressure Values not checking blood pressure at home 11/29/2015 None hypertension Pertinent Findings anxiety 11/29/2015 None hypertension Pertinent Findings decreased energy 11/29/2015 None hypertension Pertinent Findings Denies dizziness 11/29/2015 None hypertension Pertinent Findings Denies dyspnea 11/29/2015 None hypertension Onset of Symptom during adulthood 11/29/2015 None hypertension Severity not consistently severe symptoms, the symptoms fluctuate from no symptoms to anxiety and headaches 11/29/2015 None hypertension Frequency of Episodes unchanged 11/29/2015 None hypertension Triggers stress 11/29/2015 None hypertension Alleviating Factors medication 11/29/2015 None Advance Directives No Advance Directive data Encounters Encounter Performer Location Codes Date ([id number]) [id number] EST. PATIENT, LEVEL IV Diagnosis: Essential (primary) hypertension[ICD10: I10] Diagnosis: Generalized anxiety disorder[ICD10: F41.1] Diagnosis: Major depressive disorder, recurrent, mild[ICD10: F33.0] Morenita Davenport MD , [facility] CPT-4: 91172 02/01/2017 ([id number]) 93110 EST. PATIENT, LEVEL IV Diagnosis: Essential (primary) hypertension[ICD10: I10] Diagnosis: Generalized anxiety disorder[ICD10: F41.1] Diagnosis: Major depressive disorder, recurrent, mild[ICD10: F33.0] Morenita Davenport MD , [facility] CPT-4: 24147 08/21/2016 ([id number]) 99244 EST. PATIENT, LEVEL IV Diagnosis: Generalized anxiety disorder[ICD10: F41.1] Diagnosis: Essential (primary) hypertension[ICD10: I10] Diagnosis: Gastro-esophageal reflux disease without esophagitis[ICD10: K21.9] Morenita Davenport MD, [facility] CPT-4: 98635 05/28/2016 ([id number]) 62763 EST. PATIENT, LEVEL IV Diagnosis: Generalized anxiety disorder[ICD10: F41.1] Diagnosis: Major depressive disorder, recurrent, mild[ICD10: F33.0] Diagnosis: Essential (primary) hypertension[ICD10: I10] [facility] CPT-4: 98101 02/28/2016 ([id number]) OFFICE VISIT, NEW - LEVEL 4 Diagnosis: Essential (primary) hypertension[ICD10: I10] Diagnosis: Generalized anxiety disorder[ICD10: F41.1] Diagnosis: Mixed hyperlipidemia[ICD10: E78.2] Diagnosis: Major depressive disorder, recurrent, mild[ICD10: F33.0] [facility] CPT-4: 77835 11/29/2015 Plan of Care Planned Activity Notes Codes Status Date Visit Plan: Hypertension - uncontrolled - the patient's medications have been modified as documented in the visit note. The patient has been counseled to cut back on salt in diet for a no added salt diet, low fat diet, start an exercise program with low weight bearing exercises and higher aerobic activity for heart health. The patient is to check blood pressure readings as an outpatient and either fax, call, or email the readings to the office next week for practitioner to review. The pt is to call for acute concerns. Sqwkmim-vlhoszudbw-bjzcqsixm patient get rid of house guest-he is taking advantage of her and causing her undue stress and worry. Increase clonazepam to TID prn-follow up in 2 weeks. 02/01/2017 Appointment: Morenita Don WPtel: [address] [place], [place] [phone] (15 min) Moderate 02/01/2017 Patient Education: Patient Medication Summary Completed 02/01/2017 Patient Education: Hypertension Completed 02/01/2017 Patient Education: Patient Medication Summary Completed 08/23/2016 Care Plan: Comp Metabolic Cancelled 08/23/2016 Care Plan: Cbc With Differential Cancelled 08/23/2016 Care Plan: Lipid Cancelled 08/23/2016 Care Plan: Tsh Cancelled 08/23/2016 Visit Plan: Hypertension - uncontrolled - the patient's medications have been modified as documented in the visit note. The patient has been counseled to cut back on salt in diet for a no added salt diet, low fat diet, start an exercise program with low weight bearing exercises and higher aerobic activity for heart health. The patient is to check blood pressure readings as an outpatient and either fax, call, or email the readings to the office next week for practitioner to review. The pt is to call for acute concerns. Xpsipxy-uuovnmtend-eyi well controlled-add deplin-continue lexapro Patient has not had recent labs-will send orders for fasting labs 08/21/2016 Appointment: Morenita Don WPtel: [facility] [address] (15 min) Moderate 08/21/2016 Patient Education: Patient Medication Summary Completed 08/21/2016 Patient Education: Hypertension Completed 08/21/2016 Visit Plan: Chronic Depression and anxiety - the pt has symptoms of chronic anxiety and depression that have been fairly well controlled since the last office visit. The pt has expected periods of exacerbation with abatement of the symptoms with change in situational exposure. No change in current medications. Hypertension - well controlled - continue with current medications, continue with no added salt diet. Pt has been encouraged to exercise daily. The pt has been advised to call the office if there are any acute concerns about change in blood pressure readings at home. GERD-nighttime cough-increase omeprazole to twice daily-call if symptoms do not resolve or if any worse 05/28/2016 Appointment: Morenita Don WPtel: [facility] [place] [phone] (15 min) Moderate 05/28/2016 Patient Education: Patient Medication Summary Completed 05/28/2016 Visit Plan: Chronic Depression and anxiety - the pt has symptoms of chronic anxiety and depression that have not been well controlled since the last office visit. The pt has expected periods of exacerbation with abatement of the symptoms with change in situational exposure. Will change to lexapro. Stop citalopram. Hypertension - well controlled - continue with current medications, continue with no added salt diet. Pt has been encouraged to exercise daily. The pt has been advised to call the office if there are any acute concerns about change in blood pressure readings at home. 02/28/2016 Appointment: Morenita Don WPtel: [facility] [place] [phone] (30 min) Complex 02/28/2016 Patient Education: Patient Medication Summary Completed 02/28/2016 Visit Plan: Hypertension - well controlled - continue with current medications, continue with no added salt diet. Pt has been encouraged to exercise daily. The pt has been advised to call the office if there are any acute concerns about change in blood pressure readings at home. Chronic Depression and anxiety - the pt has symptoms of chronic anxiety and depression that have been fairly well controlled since the last office visit. The pt has expected periods of exacerbation with abatement of the symptoms with change in situational exposure. CONSIDER CHANGING SSRI-PATIENT IS HAVING INCREASE ANXIETY/ CRYING EPISODES-WILL OBTAIN PREVIOUS RECORDS TO SEE WHAT MEDICATIONS SHE HAS USED IN THE PAST BEFORE ANY MEDICATION CHANGES ARE MADE. Hyperlipidemia - pt has been counseled about appropriate diet, exercise, and need for low fat food choices. I have discussed the need for the patient to take medications as prescribed. If the patient has negative side effects from the medication, they are to CALL the office and not abruptly discontinue the medication without discussion with a practitioner in the office. We will check labs in 3-6 months for follow up on the patient's chronic medical problem and to assure normal liver response to medications. 11/29/2015 Appointment: Morenita Don WPtel: [address] [place], [place] [phone] [place] New Patient 11/29/2015 Patient Education: Patient Medication Summary Completed 11/29/2015 Instructions Comment RECOMMEND MEDICAL ALERT BRACELET . Hypertension - well controlled - continue with current medications, continue with no added salt diet. Pt has been encouraged to exercise daily. The pt has been advised to call the office if there are any acute concerns about change in blood pressure readings at home. Chronic Depression and anxiety - the pt has symptoms of chronic anxiety and depression that have been fairly well controlled since the last office visit. The pt has expected periods of exacerbation with abatement of the symptoms with change in situational exposure. CONSIDER CHANGING SSRI-PATIENT IS HAVING INCREASE ANXIETY/CRYING EPISODES-WILL OBTAIN PREVIOUS RECORDS TO SEE WHAT MEDICATIONS SHE HAS USED IN THE PAST BEFORE ANY MEDICATION CHANGES ARE MADE. Hyperlipidemia - pt has been counseled about appropriate diet, exercise, and need for low fat food choices. I have discussed the need for the patient to take medications as prescribed. If the patient has negative side effects from the medication, they are to CALL the office and not abruptly discontinue the medication without discussion with a practitioner in the office. We will check labs in 3-6 months for follow up on the patient's chronic medical problem and to assure normal liver response to medications. STOP CITALOPRAM START LEXAPRO (ESCITALOPRAM) 20MG EVERY EVENING CALL IF ANXIETY/DEPRESSION SYMPTOMS DO NOT IMPROVE STOP THE ALEVE PM DUE TO INCREASED RISK OF FALLS . Chronic Depression and anxiety - the pt has symptoms of chronic anxiety and depression that have not been well controlled since the last office visit. The pt has expected periods of exacerbation with abatement of the symptoms with change in situational exposure. Will change to lexapro. Stop citalopram. Hypertension - well controlled - continue with current medications, continue with no added salt diet. Pt has been encouraged to exercise daily. The pt has been advised to call the office if there are any acute concerns about change in blood pressure readings at home. INCREASE OMEPRAZOLE TO TWICE DAILY-MORNING AND BEDTIME IF COUGH IMPROVES-CONTINUE X 1 MONTH THEN DECREASE TO DAILY CALL IF COUGH DOES NOT RESOLVE OR IF ANY WORSE . Chronic Depression and anxiety - the pt has symptoms of chronic anxiety and depression that have been fairly well controlled since the last office visit. The pt has expected periods of exacerbation with abatement of the symptoms with change in situational exposure. No change in current medications. Hypertension - well controlled - continue with current medications, continue with no added salt diet. Pt has been encouraged to exercise daily. The pt has been advised to call the office if there are any acute concerns about change in blood pressure readings at home. GERD-nighttime cough-increase omeprazole to twice daily-call if symptoms do not resolve or if any worse Increase lisinopril to 20 mg per day for hypertension.- prescription sent to regular pharmacy Add Deplin to medication regimen to increase effectiveness of lexapro: Recommend filling at [facility] in [place] due to affordability. . Hypertension - uncontrolled - the patient's medications have been modified as documented in the visit note. The patient has been counseled to cut back on salt in diet for a no added salt diet, low fat diet, start an exercise program with low weight bearing exercises and higher aerobic activity for heart health. The patient is to check blood pressure readings as an outpatient and either fax , call, or email the readings to the office next week for practitioner to review. The pt is to call for acute concerns. Hbluviq-btvlxkstsz-tif well controlled-add deplin-continue lexapro Patient has not had recent labs-will send orders for fasting labs increase clonazepam to three times daily start metoprolol succinate 25mg daily . Hypertension - uncontrolled - the patient's medications have been modified as documented in the visit note. The patient has been counseled to cut back on salt in diet for a no added salt diet, low fat diet, start an exercise program with low weight bearing exercises and higher aerobic activity for heart health. The patient is to check blood pressure readings as an outpatient and either fax , call, or email the readings to the office next week for practitioner to review. The pt is to call for acute concerns. Ehfterk-drsqjnxaob-lsrqljeyn patient get rid of house guest-he is taking advantage of her and causing her undue stress and worry. Increase clonazepam to TID prn-follow up in 2 weeks.
--- OUTSIDE RECORDS SUMMARY | 2017-08-08 21:28 | XMS REPORT | CCD ---
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 Name Role Phone PP Unavailable CCM Unavailable Summary Purpose Interface Exchange Insurance Providers Payer name Policy type / Coverage type Covered alliance party ID Effective Begin Date Effective End Date [employer] Medicare Part B [id number] 2016 Unknown [employer] Medicare Part B [id number] Unknown Family history Father Diagnosis Age At Onset Myocardial infarction Unknown Mother Diagnosis Age At Onset Myocardial infarction Unknown Social History Social History Element Codes Description Effective Dates Marital status Unknown 11/29/2015 Number of children Unknown 2 son at 3hrs old 11/29/2015 Employment Unknown Retired 11/29/[address]: 348843068 Never smoker 11/29/[address]: 678738350 Never drinks alcohol 11/29/2015 Allergies, Adverse Reactions, [...] Instructions omeprazole 20 mg capsule,delayed release RxNorm: 633977 Capsule(s) TAKE 1 CAPSULE BY MOUTH EVERY DAY 06/03/2017 02/27/2018 Active Mobic 15 mg tablet RxNorm: 700284 Tablet(s) 1 TABLET(S) PO DAILY 06/03/2017 02/27/2018 Active amlodipine 10 mg tablet RxNorm: 400916 Tablet(s) TAKE 1 TABLET BY MOUTH EVERY DAY 06/03/2017 02/27/2018 Active metoprolol succinate ER 25 mg tablet,extended release 24 hr RxNorm: 384814 1 Tablet(s) PO daily 06/03/2017 02/27/2018 Active lisinopril 10 mg tablet RxNorm: 876025 Tablet(s) TAKE 1 TABLET BY MOUTH EVERY DAY 06/03/2017 02/27/2018 Active Lexapro 20 mg tablet RxNorm: 251939 1 Tablet(s) PO QPM 201702/27/2018 Active potassium chloride ER 10 mEq tablet,extended release RxNorm: 461253 Tablet(s) TAKE 2 TABLETS BY MOUTH EVERY DAY 06/03/2017 02/27/2018 Active simvastatin 20 mg tablet RxNorm: 475706 Tablet(s) 1 TABLET(S) PO QPM 06/03/2017 02/27/2018 Active Mobic 15 mg tablet RxNorm: 257601 1 TABLET(S) PO DAILY 201606/02/2017 Inactive lisinopril 10 mg tablet RxNorm: 166046 TAKE 1 TABLET BY MOUTH EVERY DAY 04/05/2017 06/02/2017 Inactive clonazepam 1 mg tablet RxNorm: 899807 1 Tablet(s) PO TID 201607/30/2017 Active metoprolol succinate ER 25 mg tablet,extended release 24 hr RxNorm: 106567 1 Tablet(s) PO daily 02/01/2017 06/02/2017 Inactive Lexapro 20 mg tablet RxNorm: 155230 1 Tablet(s) PO QPM TAKE 1 TABLET BY MOUTH EVERY EVENING 02/01/2017 02/01/2017 Inactive Lexapro 20 mg tablet RxNorm: 831265 1 Tablet(s) PO QPM 1 TABLET(S) PO QPM TAKE 1 TABLET BY MOUTH EVERY EVENING 02/01/2017 06/02/2017 Inactive Patient requests 90 days supply Lexapro 20 mg tablet RxNorm: 302464 1 Tablet(s) PO QPM 1 TABLET(S) PO QPM TAKE 1 TABLET BY MOUTH EVERY EVENING 02/01/2017 01/31/2017 Inactive Patient requests 90 days supply metoprolol succinate ER 25 mg tablet,extended release 24 hr RxNorm: 608977 1 Tablet(s) PO daily 02/01/2017 01/31/2017 Inactive amlodipine 10 mg tablet RxNorm: 245800 TAKE 1 TABLET BY MOUTH EVERY DAY 01/15/2017 06/02/2017 Inactive potassium chloride ER 10 mEq tablet,extended release RxNorm: 177476 TAKE 2 TABLETS BY MOUTH EVERY DAY 12/04/201607/2017 Inactive Lexapro 20 mg tablet RxNorm: 952281 TAKE 1 TABLET BY MOUTH EVERY EVENING 11/12/2016 01/31/2017 Inactive omeprazole 20 mg capsule,delayed release RxNorm: 261253 TAKE 1 CAPSULE BY MOUTH EVERY DAY 10/29/2016 10/28/2016 Inactive omeprazole 20 mg capsule,delayed release RxNorm: 655440 TAKE 1 CAPSULE BY MOUTH EVERY DAY 10/29/2016 06/02/2017 Inactive L-Methylfolate 15 mg tablet RxNorm: 1 Tablet(s) PO daily 10/0801/31/2017 Inactive clonazepam 1 mg tablet RxNorm: 721014 1 Tablet(s) PO BID 201601/31/2017 Inactive L-Methylfolate 15 mg tablet RxNorm: 1 Tablet(s) PO daily 08/2810/07/2016 Inactive lisinopril 20 mg tablet RxNorm: 420721 1 Tablet(s) PO daily 11/18/2016 Inactive lisinopril 20 mg tablet RxNorm: 095951 1 Tablet(s) PO daily 11/18/2016 Inactive Deplin (algal oil) 15 mg-90.314 mg capsule RxNorm: 1 Capsule(s) PO daily 08/21/2016 08/27/2016 Inactive Lexapro 20 mg tablet RxNorm: 323987 1 TABLET(S) PO QPM 201610/24/2016 Inactive simvastatin 20 mg tablet RxNorm: 473128 1 TABLET(S) PO QPM 11/19/2016 Inactive Patient requests 90 days supply simvastatin 20 mg tablet RxNorm: 215834 1 Tablet(s) PO QPM 05/23/2016 Inactive Lexapro 20 mg tablet RxNorm: 227023 1 Tablet(s) PO QPM 1 TABLET(S) PO QPM 02/28/2016 08/25/2016 Inactive Patient requests 90 days supply Lexapro 20 mg tablet RxNorm: 117111 1 Tablet(s) PO QPM 201502/28/2016 Inactive clonazepam 1 mg tablet RxNorm: 842477 1 Tablet(s) PO BID 201505/25/2016 Inactive tramadol 50 mg tablet RxNorm: 378594 1 Tablet(s) PO Q6 as needed for pain 02/27/2016 04/11/2016 Inactive potassium chloride ER 10 mEq tablet,extended release RxNorm: 503634 TAKE 2 TABLETS BY MOUTH EVERY DAY 02/27/2016 Inactive citalopram 20 mg tablet RxNorm: 715636 1 Tablet(s) PO QAM 02/2602/27/2016 Inactive omeprazole 20 mg capsule,delayed release RxNorm: 829792 TAKE 1 CAPSULE BY MOUTH EVERY DAY 02/13/2016 10/28/2016 Inactive Mobic 15 mg tablet RxNorm: 254047 1 Tablet(s) PO daily 201502/03/2017 Inactive amlodipine 10 mg tablet RxNorm: 232255 1 Tablet(s) PO daily 05/201512/28/2015 Inactive Multiple Vitamins Daily tablet RxNorm: 1 Tablet(s) PO daily 12/28/2015 Inactive clonazepam 1 mg tablet RxNorm: 432177 1 Tablet(s) PO Q12H 11/2812/28/2015 Inactive Mobic 15 mg tablet RxNorm: 748432 1 Tablet(s) PO daily 201512/28/2015 Inactive lisinopril 10 mg tablet RxNorm: 622864 1 Tablet(s) PO daily 05/201512/26/2015 Inactive simvastatin 20 mg tablet RxNorm: 236949 1 Tablet(s) PO QPM 05/201512/28/2015 Inactive Colace 100 mg capsule RxNorm: 6288932 1 Capsule(s) PO daily 05/201511/29/2015 Inactive citalopram 20 mg tablet RxNorm: 146944 1 Tablet(s) PO QAM 11/2812/28/2015 Inactive potassium chloride ER 10 mEq tablet,extended release RxNorm: 284765 2 Tablet(s) PO daily 20meq daily 11/29/20152015 Inactive Coricidin HBP 10 mg-200 mg capsule RxNorm: 0154600 1 Capsule(s) PO PRN No Start Date Active cranberry 400 mg capsule RxNorm: 251224 1 Capsule(s) PO daily No Start Date Active Vitamin D3 1,000 unit tablet RxNorm: 707544 1 Tablet(s) PO daily No Start Date Active docusate sodium 100 mg tablet RxNorm: 1487426 1 Tablet(s) PO daily No Start Date Active Mobic 15 mg tablet RxNorm: 489476 1 Tablet(s) PO daily No Start Date 02/09/2016 Inactive Vitamin D3 1,000 unit tablet RxNorm: 279710 1 Tablet(s) PO daily No Start Date 06/02/2017 Inactive omeprazole 20 mg tablet,delayed release RxNorm: 409088 1 Tablet(s) PO daily No Start Date 06/02/2017 Inactive potassium chloride ER 10 mEq tablet,extended release RxNorm: 944758 2 Tablet(s) PO daily No Start Date 06/02/2017 Inactive clonazepam 1 mg tablet RxNorm: 403557 1 Tablet(s) PO BID No Start Date 02/26/2016 Inactive Aleve PM 220 mg-25 mg tablet RxNorm: 4323299 1 Tablet(s) PO daily No Start Date 05/27/2016 Inactive amlodipine 10 mg tablet RxNorm: 721852 1 Tablet(s) PO daily No Start Date 01/14/2017 Inactive lisinopril 10 mg tablet RxNorm: 195196 1 Tablet(s) PO daily No Start Date 08/20/2016 Inactive tramadol 50 mg tablet RxNorm: 590029 1 Tablet(s) PO Q6 PRN No Start Date 02/26/2016 Inactive Ultram 50 mg tablet RxNorm: 090950 1 Tablet(s) PO Q6 as needed No Start Date 11/28/2015 Inactive simvastatin 20 mg tablet RxNorm: 806449 1 Tablet(s) PO QHS No Start Date 06/02/2017 Inactive citalopram 20 mg tablet RxNorm: 658217 1 Tablet(s) PO daily No Start Date 02/26/2016 Inactive lisinopril 10 mg tablet RxNorm: 750593 1 Tablet(s) PO daily No Start Date 04/04/2017 Inactive omeprazole 20 mg capsule,delayed release RxNorm: 073166 1 Capsule(s) PO daily No Start Date [...] Ord30 C/HDL 2.8 Ratio 10/09/2016 Comp Metabolic Xjp527 NA 136 mEq/L 10/09/2016 Comp Metabolic Dkt388 K 4.9 mEq/L 10/09/2016 Comp Metabolic Ybv174 CL 97 mEq/L 10/09/2016 Comp Metabolic Hja627 CO2 30.0 mEq/L 10/09/2016 Comp Metabolic Wyv682 ANION GAP 14 10/09/2016 Comp Metabolic Uek628 GLUCOSE 66 mg/dL 10/09/2016 Comp Metabolic Ldx915 Creat 0.9 mg/dL 10/09/2016 Comp Metabolic Tzk781 eGFR 64 ml/min/1.73m2 10/09/2016 Comp Metabolic Fxw534 BUN 13 mg/dL 10/09/2016 Comp Metabolic Mxj534 B/C Ratio 14.6 Ratio 10/09/2016 Comp Metabolic Xcc664 CALCIUM 10.0 mg/dL 10/09/2016 Comp Metabolic Ebd252 ALK PHOS 59 U/L 10/09/2016 Comp Metabolic Rlv611 AST(SGOT) 20 U/L 10/09/2016 Comp Metabolic Ico380 ALT(SGPT) 9 U/L 10/09/2016 Comp Metabolic Qva037 BILI T 0.4 mg/dL 10/09/2016 Comp Metabolic Ixm264 ALBUMIN 4.1 g/dL 10/09/2016 Comp Metabolic Wmc845 TPRO 7.1 g/dL 10/09/2016 Comp Metabolic Rtn332 GLOB 3.0 g/dL 10/09/2016 Comp Metabolic Eeg799 A/G Ratio 1.4 Ratio 10/09/2016 Comp Metabolic Awo556 Osmo 270 mOsmo 10/09/2016 Tsh Ord6 hTSH [...] 31.2 pg 10/09/2016 Cbc With Differential Ord2 [place]% 13.7 % 10/09/2016 Cbc With Differential Ord2 [...] 1.49 K/ul 10/09/2016 Cbc With Differential Ord2 [place] ABS# 0.6 K/ul 10/09/2016 Cbc With Differential [...] 1994 Ears/Nose/Throat lips/teeth/gingiva Teeth: wears dentures 02/01/2017 [facility]PP[facility] Full Exam - General 1994 Respiratory [...] 1994 Ears/Nose/Throat lips/teeth/gingiva Teeth: wears dentures 05/28/2016 [facility] Full Exam - General 1994 Respiratory auscultation [...] 1994 Ears/Nose/Throat lips/teeth/gingiva Teeth: wears dentures 02/28/2016 UPPER Full Exam - General 1994 Respiratory [...] Code : 8480-6 BMI: 26.0 Code : 89289-7 Heart Rate 1 : 120 bpm Height: 5'5" SpO2: 95% Weight: 156 lbs 08/21/2016 Blood Pressure 1: 166/80 Code : 8480-6 BMI: 25.8 Code : 74264-7 Heart Rate 1 : 105 bpm Height: 5'5" SpO2: 95% Weight: 155 lbs 05/28/2016 Blood Pressure 1: 142/74 Code : 8480-6 BMI: 25.3 Code : 44409-2 Heart Rate 1 : 104 bpm Height: 5'5" SpO2: 96% Weight: 152 lbs 02/28/2016 Blood Pressure 1: 130/70 Code : 8480-6 BMI: 26.0 Code : 64585-5 Heart Rate 1 : 100 bpm Height: 5'5" SpO2: 96% Weight: 156 lbs 11/29/2015 Blood Pressure 1: 130/70 Code : 8480-6 BMI: 25.5 Code : 00945-3 Heart Rate 1 : 86 bpm Height: [...] data Encounters Encounter Performer Location Codes Date ([id number]) 00851 EST. PATIENT, LEVEL IV Diagnosis: Essential (primary) hypertension[ICD10: I10] Diagnosis: Generalized anxiety disorder[ICD10: F41.1] Diagnosis: Major depressive disorder, recurrent, mild[ICD10: F33.0] Morenita Davenport MD , [facility] CPT-4: 12806 02/01/2017 ([id number]) 83559 EST. PATIENT, LEVEL IV Diagnosis: Essential (primary) hypertension[ICD10: I10] Diagnosis: Generalized anxiety disorder[ICD10: F41.1] Diagnosis: Major depressive disorder, recurrent, mild[ICD10: F33.0] Morenita Davenport MD , [facility] CPT-4: 49855 08/21/2016 ([id number]) 85297 EST. PATIENT, LEVEL IV Diagnosis: Generalized anxiety disorder[ICD10: F41.1] Diagnosis: Essential (primary) hypertension[ICD10: I10] Diagnosis: Gastro-esophageal reflux disease without esophagitis[ICD10: K21.9] Morenita Davenport MD, [facility] CPT-4: 10329 05/28/2016 [id number]) 96724 EST. PATIENT, LEVEL IV Diagnosis: Generalized anxiety disorder[ICD10: F41.1] Diagnosis: Major depressive disorder, recurrent, mild[ICD10: F33.0] Diagnosis: Essential (primary) hypertension[ICD10: I10] [facility] CPT-4: 26238 02/28/2016 ([id number]) OFFICE VISIT, NEW - LEVEL 4 Diagnosis: Essential (primary) hypertension[ICD10: I10] Diagnosis: Generalized anxiety disorder[ICD10: F41.1] Diagnosis: Mixed hyperlipidemia[ICD10: E78.2] Diagnosis: Major depressive disorder, recurrent, mild[ICD10: F33.0] [facility] CPT-4: 67330 11/29/2015 Plan of Care Planned Activity Notes [...] pt is to call for acute concerns. Foolbkl-mytcvdatxc-blgapzikb patient get rid of house guest-he is taking advantage of her and causing her undue stress and worry. Increase clonazepam to TID prn-follow up in 2 weeks. 02/01/2017 Appointment: Morenita Don WPtel: [address] [place], [place] [phone] (15 min) Moderate 02/01/2017 Patient Education: Patient [...] pt is to call for acute concerns. Ebzjkeu-jxmgdmyrpb-yra well controlled-add deplin-continue lexapro Patient has not had recent labs-will send orders for fasting labs 08/21/2016 Appointment: Morenita Don WPtel: [address] [phone] (15 min) Moderate 08/21/2016 Patient Education: Patient [...] any worse 05/28/2016 Appointment: Morenita Don WPtel: [address] [phone] (15 min) Moderate 05/28/2016 Patient Education: Patient [...] at home. 02/28/2016 [phone] (30 min) Complex 02/28/2016 Patient Education: Patient [...] to medications. 11/29/2015 [facility]ment[phone] New Patient 11/29/2015 Patient Education: Patient Medication [...] increase effectiveness of lexapro: Recommend filling at [facility] in [place] due to affordability. . Hypertension - uncontrolled [...] pt is to call for acute concerns. Dkfmggq-hkydqiekbc-pyb well controlled-add deplin-continue lexapro Patient has not [...] pt is to call for acute concerns. Vfvqwga-nprpxzmkyl-pwgqnsqtk patient get rid of house guest-he is taking advantage of her and causing her undue stress and worry. Increase clonazepam to TID prn-follow up in 2 weeks.
[2017-08-08] MEDS ORDERED: LACTATED RINGERS 1,000 ML IV ONE (21:29)
--- OUTSIDE RECORDS SUMMARY | 2017-08-08 21:29 | XMS REPORT | Continuity of Care Document ---
Author Author [facility] Organization [facility] Address Unknown Phone Unavailable Allergies Active Description Code Type Severity Reaction Onset Reported/Identified Relationship to Patient Clinical Status Yes Penicillins [id number] Drug Allergy Severe EDEMA 11/25/2010 Medications There is no data. Problems Date Dx Coded Attending Type Code Diagnosis Diagnosed By 01/22/2013 MOSES MCKEON MD, Ot 292.81 DRUG-INDUCED DELIRIUM 01/22/2013 MOSES MCKEON MD Ot 300.00 ANXIETY STATE NOS 01/22/2013 MOSES MCKEON MD Ot 311 DEPRESSIVE DISORDER NEC 01/22/2013 MOSES MCKEON MD Ot 389.9 HEARING LOSS NOS 01/22/2013 MOSES MCKEON MD Ot 401.9 HYPERTENSION NOS 01/22/2013 MOSES MCKEON MD Ot 553.3 DIAPHRAGMATIC HERNIA 01/22/2013 MOSES MCKEON MD Ot 716.90 ARTHROPATHY NOS-UNSPEC 01/22/2013 MOSES MCKEON MD Ot 733.82 NONUNION OF FRACTURE 01/22/2013 MOSES MCKEON MD Ot 780.60 FEVER, UNSPECIFIED 01/22/2013 MOSES MCKEON MD Ot 820.21 INTERTROCHANTERIC FX-CL 01/22/2013 MOSES MCKEON MD Ot 905.2 LATE EFFECT ARM FX 01/22/2013 MOSES MCKEON MD Ot E000.8 OTHER EXTERNAL CAUSE STATUS 01/22/2013 MOSES MCKEON MD Ot E849.0 ACCIDENT IN HOME 01/22/2013 MOSES MCKEON MD Ot E880.9 FALL ON STAIR/STEP NEC 01/22/2013 MOSES MCKEON MD, Ot E935.2 ADV EFF OPIATES 01/29/2014 ARIAN SALINAS MD Ot 275.2 DIS MAGNESIUM METABOLISM 01/29/2014 ARIAN SALINAS MD Ot 276.1 HYPOSMOLALITY 01/29/2014 AIRAN SALINAS MD Ot 276.8 HYPOPOTASSEMIA 01/29/2014 ARIAN SALINAS MD Ot 298.9 PSYCHOSIS NOS 01/29/2014 ARIAN SALINAS MD Ot 300.00 ANXIETY STATE NOS 01/29/2014 ARIAN SALINAS MD Ot 311 DEPRESSIVE DISORDER NEC 01/29/2014 ARIAN SALINAS MD Ot 389.9 HEARING LOSS NOS 01/29/2014 ARIAN SALINAS MD Ot 401.9 HYPERTENSION NOS 01/29/2014 ARIAN SALINAS MD Ot 716.90 ARTHROPATHY NOS-UNSPEC 01/29/2014 ARIAN SALINAS MD Ot 786.2 COUGH 01/29/2014 ARIAN SALINAS MD Ot 787.02 NAUSEA ALONE 01/29/2014 ARIAN SALINAS MD Ot 787.91 DIARRHEA 01/29/2014 ARIAN SALINAS MD Ot 788.30 UNSPECIFIED URINARY INCONTINENCE 01/29/2014 ARIAN SALINAS MD Ot 788.63 URGENCY OF URINATION 01/29/2014 ARIAN SALINAS MD Ot V03.82 PROPHYLACTIC VACC AGAINST STREPTOCOCCUS 01/29/2014 ARIAN SALINAS MD Ot V04.81 ND FOR PROPHYLACTIC VACCIN AND INOCULATI 01/29/2014 ARIAN SALINAS MD Ot V12.51 HX-VENOUS THROMBOSIS EMBOLISM 04/16/2014 ARIAN SALINAS MD Ot 276.1 HYPOSMOLALITY 04/16/2014 ARIAN SALINAS MD Ot 300.00 ANXIETY STATE NOS 04/16/2014 ARIAN SALINAS MD Ot 311 DEPRESSIVE DISORDER NEC 04/16/2014 ARIAN SALINAS MD Ot 401.9 HYPERTENSION NOS 04/16/2014 ARIAN SALINAS MD Ot 599.0 URIN TRACT INFECTION NOS 10/18/2014 AZALEA GANDHI MD Ot 298.9 PSYCHOSIS NOS 10/18/2014 AZALEA GANDHI MD Ot 300.00 ANXIETY STATE NOS 10/18/2014 AZALEA GANDHI MD Ot 311 DEPRESSIVE DISORDER NEC 10/18/2014 AZALEA GANDHI MD Ot 788.30 UNSPECIFIED URINARY INCONTINENCE 01/11/2015 ARIAN SALINAS MD Ot 038.9 SEPTICEMIA NOS 01/11/2015 ARIAN SALINAS MD Ot 041.49 OTHER AND UNSPECIFIED ESCHERICHIA COLI [ 01/11/2015 ARIAN SALINAS MD Ot 263.9 PROTEIN-MISTY MALNUTR NOS 01/11/2015 ARIAN SALINAS MD Ot 275.2 DIS MAGNESIUM METABOLISM 01/11/2015 ARIAN SALINAS MD Ot 275.42 HYPERCALCEMIA 01/11/2015 ARIAN SALINAS MD Ot 293.0 DELIRIUM DUE TO CONDITIONS CLASSIFIED EL 01/11/2015 ARIAN SALINAS MD Ot 294.20 DEMENTIA, UNSPECIFIED, WITHOUT BEHAVIORA 01/11/2015 ARIAN SALINAS MD Ot 300.00 ANXIETY STATE NOS 01/11/2015 ARIAN SALINAS MD Ot 311 DEPRESSIVE DISORDER NEC 01/11/2015 ARIAN SALINAS MD Ot 401.9 HYPERTENSION NOS 01/11/2015 ARIAN SALINAS MD Ot 599.0 URIN TRACT INFECTION NOS 01/11/2015 ARIAN SALINAS MD Ot 716.90 ARTHROPATHY NOS-UNSPEC 01/11/2015 ARIAN SALINAS MD Ot 783.21 LOSS OF WEIGHT 01/11/2015 ARIAN SALINAS MD Ot 995.91 SEPSIS 01/11/2015 ARIAN SALINAS MD Ot A41.9 01/11/2015 ARIAN SAILNAS MD Ot E46 01/11/2015 ARIAN SALINAS MD Ot E83.52 01/11/2015 ARIAN SALINAS MD Ot F03.90 01/11/2015 ARIAN SALINAS MD Ot F05 01/11/2015 ARIAN SALNIAS MD Ot F32.9 01/11/2015 ARIAN SALINAS MD Ot F41.9 01/11/2015 ARIAN SALINAS MD Ot I10 01/11/2015 ARIAN SALINAS MD Ot M12.9 01/11/2015 ARIAN SALINAS MD Ot N39.0 01/11/2015 ARIAN SALINAS MD Ot R63.4 01/11/2015 ARIAN SALINAS MD Ot V12.51 HX-VENOUS THROMBOSIS EMBOLISM 01/11/2015 ARIAN SALINAS MD Ot Z86.718 01/21/2015 ARIAN SALINAS MD Ot 294.20 DEMENTIA, UNSPECIFIED, WITHOUT BEHAVIORA 01/21/2015 ARIAN SALINAS MD Ot 300.00 ANXIETY STATE NOS 01/21/2015 ARIAN SALINAS MD Ot 311 DEPRESSIVE DISORDER NEC 01/21/2015 ARIAN SALINAS MD Ot 401.9 HYPERTENSION NOS 01/21/2015 ARIAN SALINAS MD Ot 599.0 URIN TRACT INFECTION NOS 01/21/2015 ARIAN SALINAS MD Ot 716.90 ARTHROPATHY NOS-UNSPEC 01/21/2015 ARIAN SALINAS MD Ot V12.51 HX-VENOUS THROMBOSIS EMBOLISM 01/21/2015 JERSON BOWLES MD Ot 873.0 OPEN WOUND OF SCALP 01/21/2015 JERSON BOWLES MD Ot 959.01 HEAD INJURY, NOS 01/21/2015 JERSON BOWLES MD Ot E000.8 OTHER EXTERNAL CAUSE STATUS 01/21/2015 JERSON BOWLES MD Ot E849.7 ACCID IN RESIDENT INSTIT 01/21/2015 JERSON BOWLES MD Ot E885.9 FALL FROM SLIPPING, TRIPPING, OR STUMBLI 10/24/2015 NELSON CURRY DO Ot E78.5 HYPERLIPIDEMIA, UNSPECIFIED 10/24/2015 PATRICIO DELGADILLO NELSON Ot F32.9 MAJOR DEPRESSIVE DISORDER, SINGLE EPISOD 10/24/2015 MERT CURRY DOI Ot F41.9 ANXIETY DISORDER, UNSPECIFIED 10/24/2015 MERT CURRY DOI Ot I10 ESSENTIAL (PRIMARY) HYPERTENSION 10/24/2015 MERT CURRY DOI Ot I63.9 CEREBRAL INFARCTION, UNSPECIFIED 10/24/2015 MERT CURRY DOI Ot K21.9 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 10/24/2015 PATRICIO DELGADILLO NELSON Ot R13.10 DYSPHAGIA, UNSPECIFIED 10/24/2015 PATRICIO DELGADILLO NELSON Ot R25.9 UNSPECIFIED ABNORMAL INVOLUNTARY MOVEMEN 10/24/2015 PATRICIO DELGADILLO NELSON Ot R41.0 DISORIENTATION, UNSPECIFIED 10/24/2015 PATRICIO DELGADILLO NELSON Ot 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 10/24/2015 PATRICIO DELGADILLO NELSON Ot R56.9 UNSPECIFIED CONVULSIONS 10/24/2015 MERT CURRY DOI Ot Z86.718 PERSONAL HISTORY OF OTHER VENOUS THROMBO 10/24/2015 NELSON CURRY DO Ot Z91.81 HISTORY OF FALLING 10/29/2016 ARIAN SALINAS MD Ot V58.61 ANTICOAGULANTS,LT,CURRENT USE 10/29/2016 ARIAN SALINAS MD Ot V58.83 ENCOUNTER FOR THERAPEUTIC DRUG MONITORIN 10/29/2016 ARIAN SALINAS MD Ot V54.13 AFTERCARE HEALING TRAUMATIC FX HIP 10/29/2016 ARIAN SALINAS MD Ot V58.61 ANTICOAGULANTS,LT,CURRENT USE 10/29/2016 GEORGE TEIXEIRAP Ot D64.9 ANEMIA, UNSPECIFIED 10/29/2016 GEORGE TEIXEIRAP Ot D72.819 DECREASED WHITE BLOOD CELL COUNT, UNSPEC 10/30/2016 GEORGE TEIXEIRAP Ot D64.9 ANEMIA, UNSPECIFIED 10/30/2016 GEORGE TEIXEIRAP Ot D72.819 DECREASED WHITE BLOOD CELL COUNT, UNSPEC 11/23/2016 GEORGE TEIXEIRA Ot D64.9 ANEMIA, UNSPECIFIED 11/23/2016 GEORGE TEIXEIRAP Ot D72.819 DECREASED WHITE BLOOD CELL COUNT, UNSPEC 08/08/2017 ARIAN SALINAS MD Ot V58.61 ANTICOAGULANTS,LT,CURRENT USE 08/08/2017 ARIAN SALINAS MD Ot V58.83 ENCOUNTER FOR THERAPEUTIC DRUG MONITORIN 08/08/2017 ARIAN SALINAS MD Ot V54.13 AFTERCARE HEALING TRAUMATIC FX HIP 08/08/2017 ARIAN SALINAS MD Ot V58.61 ANTICOAGULANTS,LT,CURRENT USE 08/08/2017 GEORGE TEIXEIRAP Ot D64.9 ANEMIA, UNSPECIFIED 08/08/2017 GEORGE TEIXEIRAP Ot D72.819 DECREASED WHITE BLOOD CELL COUNT, UNSPEC Procedures Code Description Performed By Performed On 79.15 CLOSED RED-INT FIX FEMUR 01/16/2013 Results Test Result Range Blood CBC with ordered manual differential panel - 10/29/16 08:30 Blood leukocytes automated count (number/volume) 4.6 10*3/uL 4.3-11.0 Blood erythrocytes automated count (number/volume) 4.79 10*6/uL 4.35-5.85 Venous blood hemoglobin measurement (mass/volume) 14.4 g/dL 11.5-16.0 Blood hematocrit (volume fraction) 44 % 35-52 Automated erythrocyte mean corpuscular volume 93 [foz_us] 80-99 Automated erythrocyte mean corpuscular hemoglobin (mass per erythrocyte) 30 pg 25-34 Automated erythrocyte mean corpuscular hemoglobin concentration measurement ( mass/volume) 33 g/dL 32-36 Automated erythrocyte distribution width ratio 13.6 % 10.0-14.5 Automated blood platelet count (count/volume) 275 10*3/uL 130-400 Automated blood platelet mean volume measurement 10.0 [foz_us] 7.4-10.4 Automated blood neutrophils/100 leukocytes 47 % 42-75 Automated blood lymphocytes/100 leukocytes 35 % 12-44 Blood monocytes/100 leukocytes 13 % NRG Automated blood eosinophils/100 leukocytes 3 % 0-10 Automated blood basophils/100 leukocytes 1 % 0-10 Blood neutrophils automated count (number/volume) 2.2 10*3 1.8-7.8 Blood lymphocytes automated count (number/volume) 1.6 10*3 1.0-4.0 Blood monocytes automated count (number/volume) 0.6 10*3 0.0-1.0 Automated eosinophil count 0.2 10*3/uL 0.0-0.3 Automated blood basophil count (count/volume) 0.0 10*3/uL 0.0-0.1 Manual blood segmented neutrophils/100 leukocytes 48 % NRG Manual blood lymphocytes/100 leukocytes 36 % NRG Manual eosinophils/100 leukocytes in nose 3 % NRG Blood erythrocyte morphology finding identification NORMAL NRG Automated reticulocyte percentage - 10/29/16 08:30 Blood reticulocytes count (number/volume) 36 10*9/L 24- 90 Blood reticulocytes/100 erythrocytes 0.76 % 0.50-2.40 Encounters ACCT No. Visit Date/Time Discharge Status Pt. Type Provider Facility Loc./Unit Complaint [id number] 10/29/2016 08:14:00 10/29/2016 23:59:59 CLS Outpatient GEORGE TEIXEIRA [facility] LAB ELEVATED HCB LOW WBC [id number] 10/21/2015 09:11:00 10/24/2015 14:30:00 DIS Inpatient NELSON CURRY DO [facility] 4TH AMS [id number] 01/21/2015 15:19:00 01/21/2015 16:54:00 DIS Emergency JERSON BOWLES MD [facility] ER FALL/HEAD LAC [id number] 01/11/2015 12:43:00 01/21/2015 13:18:00 DIS Inpatient ARIAN SALINAS MD [facility] 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 [id number] 01/08/2015 08:50:00 01/11/2015 12:35:00 DIS Inpatient ARIAN SALINAS MD [facility] 4TH ALTERED MENTAL STATUS; UNCONTROLLED HTN;UTI;HYPOMAG [id number] 10/18/2014 08:24:00 10/18/2014 13:54:00 DIS Emergency HIRAM CABA, AZALEA Lowe [facility] ER CONFUSION [id number] 04/15/2014 15:50:00 04/16/2014 17:35:00 DIS Inpatient ARIAN SALINAS MD [facility] 4TH UTI [id number] 01/27/2014 14:23:00 01/29/2014 13:55:00 DIS Inpatient ARIAN SALINAS MD [facility] 4TH MARKED ELECTROLYTE ABNORMALITIES,AMS [id number] 05/27/2013 12:00:00 05/27/2013 23:59:59 CLS Outpatient ARIAN SALINAS MD [facility] HIP FX, COUMADIN THERAPY [id number] 04/28/2013 11:30:00 04/28/2013 23:59:59 CLS Outpatient ARIAN SALINAS MD [facility] ANTICOAG THERAPY [id number] 04/08/2013 14:48:00 04/08/2013 23:59:59 CLS Outpatient [id number] 03/18/2013 13:59:00 03/18/2013 23:59:59 CLS Outpatient [id number] 02/18/2013 13:42:00 02/18/2013 23:59:59 CLS Outpatient [id number] 01/14/2013 19:30:00 01/22/2013 16:00:00 DIS Inpatient MOSES MCKEON MD [facility] R HIP FX [id number] 08/08/2017 21:22:00 ACT Emergency FIONA FROST DO [facility] ER FALL [id number] 02/01/2017 12:56:11 02/01/2017 23:59:59 [facility] Outpatient [id number] 01/21/2015 15:19:42 ACT Document Registration
--- NOTE | 2017-08-08 21:47 | ED General ---
General Stated Complaint: FALL Source of Information: EMS, Family (DAUGHTER AND GRANDSON), Old Records Exam Limitations: Other (PT APPEARS TO BE CONFUSED,AND IS UNABLE TO GIVE ANY RELEVANT INFORMATION, PT IS ALSO HARD OF HEARING) History of Present Illness Date Seen by Provider: Aug 08, 2017 Time Seen by Provider: 20:25 Initial Comments PT ARRIVES VIA EMS FROM HOME--DAUGHTER AND GRANDSON ARE PT'S CARETAKERS--ALL LIVE TOGETHER EMS WAS CALLED FOR PT WITH ALTERED MENTAL STATUS SINCE YESTERDAY PT FELL YESTERDAY AND HAS C/O RIGHT HIP PAIN, BUT ALSO HAS SIGNIFICANT SWELLING TO RIGHT KNEE PT WAS NOTED TO HAVE TEMP OF 101.4 TODAY EMS REPORT THAT O2 SAT WAS 86% ON ROOM AIR, UP TO 93% ON 6L/NC--PT DOES NOT USE HOME O2. NO OBVIOUS DYSPNEA PT DENIES PAIN ANYWHERE ON QUESTIONING DAUGHTER AND HER GRANDSON ARRIVE LATER AND GIVE ADDITIONAL HISTORY YESTERDAY, PT WAS USING HER WALKER AND WAS IN THE KITCHEN, AND WAS TURNING AROUND, AND DAUGHTER WAS WALKING PAST HER, AND DOG WAS NEAR HER WELL, AND PT LOST BALANCE AND FELL, LANDING ON RIGHT SIDE, AND HITTING THE SIDE OF HER FACE/ HEAD ON BOOK CASE NO LOSS OF CONSCIOUSNESS PT REQUIRED FULL ASSIST TO GET BACK TO HER BED, AND HAS BEEN NON-AMBULATORY SINCE THEN PT HAS C/O LEFT HIP PAIN AND RIGHT GROIN PAIN AND PAIN "IN HER LADY PARTS" PER DAUGHTER PT IS NOT NORMALLY CONFUSED, BUT HAS BEEN CONFUSED SINCE THEN NO COUGH OR SHORTNESS OF BREATH NO VOMITING OR DIARRHEA PCP: DR. OLIVIER Allergies and Home Medications Allergies Coded Allergies: Penicillins (Unverified Allergy, Severe, EDEMA, 11/25/10) Home Medications Amlodipine Besylate 10 Mg Tablet, 10 MG PO DAILY, (Reported) Cholecalciferol 1,000 Unit Tab, 5,000 UNIT PO HS, (Reported) TAKES 5 (1000 UNIT) TABLETS Cranberry Fruit 450 Mg Tablet, 4,200 MG PO HS, (Reported) Docusate Sodium 100 Mg Capsule, 100 MG PO DAILY, (Reported) Lisinopril 10 Mg Tablet, 10 MG PO DAILY, (Reported) Meloxicam 15 Mg Tablet, 15 MG PO DAILY, (Reported) Multivitamins 1 Each Tab.chew, 2 TAB PO HS, (Reported) GUMMY VITAMIN Omeprazole 20 Mg Capsule.dr, 20 MG PO DAILY, (Reported) Potassium Chloride 10 Meq Capsule.er, 20 MEQ PO DAILY, (Reported) TAKES 2 (10 MEQ) CAPSULES Simvastatin 20 Mg Tablet, 20 MG PO DAILY, (Reported) Patient Home Medication List Home Medication List Reviewed: Yes Review of Systems Constitutional: see HPI, fever EENTM: other (SOME BRUISING NOTED TO RIGHT CHEEK) Respiratory: see HPI; No short of breath Cardiovascular: No chest pain Gastrointestinal: No abdominal pain, No vomiting Musculoskeletal: see HPI Psychiatric/Neurological: See HPI Past [id number]-Jetwhd Hx Patient Social History Alcohol Use: Past History (OCCASIONALLY DRANK IN PAST, BUT NONE FOR 25 YEARS, PER DAUGHTER ON 08/08/17) Recreational Drug Use: No Smoking Status: Never a Smoker Immunizations Up To Date Tetanus Booster (TDap): Less than 5yrs Date of Pneumonia Vaccine: Jan 27, 2014 Date of Influenza Vaccine: Jan 27, 2014 Past Medical History Surgeries: Yes (LEFT KNEE REPLACEMENT; MULTIPLE RIGHT ELBOW/ARM SURGERIES; CATARACT SURGERY; BILATERAL HIP FRACTURES/ REPAIRS WITH LEFT HIP REPLACEMENT AND RIGHT HIP PINNING. 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 BILATERAL HIP FRACTURES/REPAIR; KNEE REPLACEMENT) Degenerate Disk Disease, Osteoporosis, Arthritis, Fractures Endocrine: No HEENT: Yes Cataract Hearing Impairment: Hard of Hearing Psychosocial: Yes Anxiety, Depression Adverse Reaction/Blood Tranf: No Family Medical History Myocardial infarction 19 MOTHER, Onset:60 years & older Physical Exam Vital Signs Vital Signs - First Documented 08/08/17 21:25 Temp 100.1 Pulse 94 Resp 20 B/P (MAP) 188/74 (112) Pulse Ox 94 O2 Delivery Room Air O2 Flow Rate 4.00 Capillary Refill : General Appearance: No Apparent Distress, WD/WN, Other (VERY HARD OF HEARING, TALKS BUT APPEARS TO BE CONFUSED, AND IS NOT ABLE TO GIVE ANY RELEVANT INFORMATION ABOUT HER HISTORY OR CURRENT CONDITION) HEENT: PERRL/EOMI (POST CATARACT CHANGES), Other (MILD BRUISING TO RIGHT CHEEK. ) Neck: Full Range of Motion, Normal Inspection, Non Tender, Supple; No JVD Respiratory: Normal Breath Sounds, No Accessory Muscle Use, No Respiratory Distress, Other (TENDERNESS TO RIGHT ANTERIOR/LATERAL CHEST) Cardiovascular: Regular Rate, Rhythm, No JVD, No Murmur, Normal Peripheral Pulses Gastrointestinal: Normal Bowel Sounds, No Pulsatile Mass, Non Tender, Soft Extremity: Other (TENDERNESS TO RIGHT HIP, MODERATE SWELLING AND MILD TENDERNESS TO RIGHT KNEE. BRUISING AND SLIGHT SWELLING TO RIGHT HAND. CHRONIC RIGHT ELBOW DISLOCATION--FREELY MOVES ELBOW IN ALL DIRECTIONS-NO TENDERNESS OR SWELLING. 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 KNOWS NAME AND KNOWS SHE IS IN HOSPITAL. VERY POOR MEMORY) Skin: Normal Color, Warm/Dry, Ecchymosis Focused Exam Lactate Level 08/08/17 22:00: Lactic Acid Level 1.34 Lactic Acid Level Progress/Results/Core Measures Suspected Sepsis SIRS Temperature: Pulse: Respiratory Rate: Laboratory Tests 08/08/17 22:00: White Blood Count 8.7 Blood Pressure / Mean: 08/08/17 22:00: Lactic Acid Level 1.34 Laboratory Tests 08/08/17 22:00: INR Comment 1.1, Platelet Count 197 08/08/17 22:35: Creatinine 0.80, Total Bilirubin 1.1H Results/Orders Lab Results Laboratory Tests Test 08/08/17 21:14 08/08/17 21:45 08/08/17 22:00 08/08/17 22:35 Range/Units Urine Color YELLOW Urine Clarity CLEAR Urine pH 8 5-9 Urine Specific [place] 1.015 L 1.016-1.022 Urine Protein 2+ H NEGATIVE Urine Glucose (UA) NEGATIVE NEGATIVE Urine Ketones 2+ H NEGATIVE Urine Nitrite NEGATIVE NEGATIVE Urine Bilirubin NEGATIVE NEGATIVE Urine Urobilinogen 4 H NORMAL MG/DL Urine Leukocyte Esterase NEGATIVE NEGATIVE Urine RBC (Auto) 1+ H NEGATIVE Urine RBC 0-2 /HPF Urine WBC 0-2 /HPF Urine Crystals NONE /LPF Urine Bacteria NEGATIVE /HPF Urine Casts NONE /LPF Urine Mucus NEGATIVE /LPF Urine Culture Indicated NO Blood Gas Puncture Site LT RAD Blood Gas Patient Temperature 100.1 Arterial Blood pH 7.45 H 7.37-7.43 Arterial Blood Partial Pressure CO2 43 35-45 MMHG Arterial Blood Partial Pressure O2 86 79-93 MMHG Arterial Blood HCO3 30 H 23-27 MMOL/L Arterial Blood Total CO2 30.8 21.0-31.0 MMOL/L Arterial Blood Oxygen Saturation 97 94-100 % Arterial Blood Base Excess 5.7 H -2.5-2.5 MMOL/L Henrique Test YES-POS Blood Gas Ventilator Setting NO Blood Gas Inspired Oxygen 4L White Blood Count 8.7 4.3-11.0 10^3/uL Red Blood Count 4.90 4.35-5.85 10^6/uL Hemoglobin 14.8 11.5-16.0 G/DL Hematocrit 44 35-52 % Mean Corpuscular Volume 89 80-99 FL Mean Corpuscular Hemoglobin 30 25-34 PG Mean Corpuscular Hemoglobin Concent 34 32-36 G/DL Red Cell Distribution Width 14.4 10.0-14.5 % Platelet Count 197 130-400 10^3/uL Mean Platelet Volume 10.9 H 7.4-10.4 FL Neutrophils (%) (Auto) 79 H 42-75 % Lymphocytes (%) (Auto) 11 L 12-44 % Monocytes (%) (Auto) 9 0-12 % Eosinophils (%) (Auto) 1 0-10 % Basophils (%) (Auto) 0 0-10 % Neutrophils # (Auto) 6.9 1.8-7.8 X 10^3 Lymphocytes # (Auto) 0.9 L 1.0-4.0 X 10^3 Monocytes # (Auto) 0.8 0.0-1.0 X 10^3 Eosinophils # (Auto) 0.1 0.0-0.3 10^3/uL Basophils # (Auto) 0.0 0.0-0.1 10^3/uL Prothrombin Time 14.0 12.2-14.7 SEC INR Comment 1.1 0.8-1.4 Activated Partial Thromboplast Time 25 24-35 SEC Lactic Acid Level 1.34 0.50-2.00 MMOL/L Sodium Level 135 135-145 MMOL/L Potassium Level 3.9 3.6-5.0 MMOL/L Chloride Level 99 98-107 MMOL/L Carbon Dioxide Level 26 21-32 MMOL/L Anion Gap 10 5-14 MMOL/L Blood Urea Nitrogen 14 7-18 MG/DL Creatinine 0.80 0.60-1.30 MG/DL Estimat Glomerular Filtration Rate > 60 BUN/Creatinine Ratio 18 Glucose Level 118 H 70-105 MG/DL Calcium Level 9.4 8.5-10.1 MG/DL Magnesium Level 1.6 L 1.8-2.4 MG/DL Total Bilirubin 1.1 H 0.1-1.0 MG/DL Aspartate Amino Transf (AST/SGOT) 19 5-34 U/L Alanine Aminotransferase (ALT/SGPT) 10 0-55 U/L Alkaline Phosphatase 70 40-136 U/L Total Protein 6.7 6.4-8.2 GM/DL Albumin 3.6 3.2-4.5 GM/DL Micro Results Microbiology 08/08/17 Influenza Types A,B Antigen (BRIAN) - Final, Complete My Orders Orders - FIONA FROST DO Saline Lock/Iv-Start (08/08/17 21:29) Ekg Tracing (08/08/17:) O2 (08/08/17:) Monitor-Rhythm Ecg Trace Only (08/08/17:29) Ct Head/Face/Cervical Wo (08/08/17 21:29) Arterial Blood Gas (08/08/17:) Cbc With Automated Diff (08/08/17:) Comprehensive Metabolic Panel (08/08/17 21:29) Lactic Acid Analyzer (08/08/17 21:29) Magnesium (08/08/17:) Protime With Inr (08/08/17:) Partial Thromboplastin Time (08/08/17:29) Ua Culture If Indicated (08/08/17 21:29) Blood Culture (08/08/17 21:29) Influenza A And B Antigens (08/08/17:29) Chest 1 View, Ap/Pa Only (08/08/17 21:29) Hand, Right, 3 Views (08/08/17 21:29) Femur, Right, 2 Views (08/08/17 21:29) Knee, Right, 3 Views (08/08/17 21:29) Pelvis With Right Hip 2-3views (08/08/17 21:29) Saline Lock/Iv-Start (08/08/17 21:29) Lactated Ringers (Lr 1000 Ml Iv Solution (08/08/17 21:29) Ct Chest/Abdomen/Pelvis Wo (08/08/17 21:38) Ct Thoracic/Lumbar Spine Wo (08/08/17 21:38) Catheter(Urinary) Insert & Ass 03,15 (08/08/17 21:41) Acetaminophen Tablet (Tylenol Tablet) (08/08/17 23:15) Ceftriaxone Injection (Rocephin Injectio (08/09/17 00:15) Ceftriaxone Injection (Rocephin Injectio (08/09/17 00:14) Ns (Ivpb) (Sodium Chloride 0.9% Ivpb Bag (08/09/17 00:14) Medications Given in ED Current Medications Medications Dose Ordered Sig/Lauren Route Start Time Stop Time Status Last Admin Dose Admin Acetaminophen 1,000 mg ONCE ONCE PO 08/08/17 23:15 08/08/17 23:16 DC 08/08/17 23:29 1,000 MG Vital Signs/I&O 08/08/17 08/08/17 08/09/17 08/09/17 21:25 21:25 01:10 01:20 Temp 100.1 99.5 Pulse 94 75 Resp 20 18 B/P (MAP) 188/74 (112) 167/77 (107) Pulse Ox 94 94 94 92 O2 Delivery Room Air Nasal Cannula Nasal Cannula Nasal Cannula O2 Flow Rate 4.00 4.00 3.00 08/09/17 08/09/17 08/09/17 02:20 03:20 05:20 Temp 98.8 98.9 Pulse 69 66 68 Resp 14 16 B/P (MAP) 125/74 (91) 135/77 (96) Pulse Ox 93 91 93 O2 Delivery Nasal Cannula Nasal Cannula O2 Flow Rate 3.00 3.00 Capillary Refill : Progress Note : Progress Note PT HAD NO COMPLAINTS DURING ER STAY ECG Initial ECG Impression Date: Aug 09, 2017 Initial ECG Impression Time: 21:30 Initial ECG Rate: 94 Initial ECG Rhythm: Normal Sinus Initial ECG Comparisson: No Previous ECG Available Diagnostic Imaging Comments XRAYS: ALL PENDING RADIOLOGIST REVIEW: PELVIS AND RIGHT HIP--SUPERIOR AND INFERIOR PUBIC RAMI FRACTURES, HARDWARE IN PLACE IN RIGHT HIP AND LEFT HIP REPLACEMENT HARDWARE IN PLACE. RIGHT FEMUR--HARDWARE IN PLACE, NO ACUTE PROCESS RIGHT KNEE--NO ACUTE PROCESS, EXTENSIVE DEGENERATIVE CHANGES. CXR--? ATELECTASIS/INFILTRATE ON RIGHT ? RIGHT HAND--NO ACUTE PROCESS, EXTENSIVE DEGENERATIVE CHANGES CT HEAD/MAXILLOFACIALS/CERVICAL SPINE--LEFT FRONTAL SCALP HEMATOMA, OTHERWISE NO ACUTE PROCESS, DEGENERATIVE CHANGES--PER [facility] VIA FAX @ 2330 CT THORACIC/LUMBAR SPINE--AGE INDETERMINATE COMPRESSION FRACTURES T2 AND T4, CHRONIC COMPRESSION OF T6, T7, T12, MILD AGE-INDETERMINATE FRACTURES OF L2 AND L3, CHRONIC COMPRESSION L4, DIFFUSE OSTEOPENIA, DEGENERATIVE CHANGES--PER [facility] VIA FAX @ 2345 CT CHEST/ABDOMEN/PELVIS--BILATERAL DEPENDENT DENSITIES, FAVORED ATELECTASIS. NO CONSOLIDATION, PNEUMOTHORAX OR PLEURAL EFFUSIONS. LEFT THYROID NODULE. NO EVIDENCE OF INTRA-ABDOMINAL ACUTE PROCESS--PER [facility] VIA FAX @2345 Reviewed: Reviewed by In Departure Communication (Admissions) [id number]--SPOKE WITH DR. OLIVIER, ACCEPTS PT FOR ADMIT. WILL CONSULT ORTHO Impression Primary Impression: Altered mental status Additional Impressions: Fever Hypoxia Fracture of right pelvis Status post fall Contusion of right hand Contusion of right hip Contusion of right knee Facial contusion SUSPECTED PNEUMONIA Closed head injury without loss of consciousness Disposition: ADMITTED INPATIENT Condition: Stable Admissions Decision to Admit Reason: Admit from ER (General) Decision to Admit/Date: Aug 09, 2017 Time/Decision to Admit Time: 00:01 Departure-Patient Inst. Referrals: SHELLIE OLIVIER MD (PCP/Family) Primary Care Physician Images Full Body/Extremities Full Progress SEE ADDITIONAL PAPER DIAGRAMS FOR IMAGES FIONA FROST DO Aug 08, 2017 21:47
[2017-08-08 21:56] LABS: ABG BASE EXCESS 5.7 MMOL/L (-2.5-2.5); ABG OXYGEN SATURATION 97 % (94-100); ABG PCO2 43 MMHG (35-45); ABG PH 7.45 (7.37-7.43); ABG PO2 86 MMHG (79-93); ABG TCO2 30.8 MMOL/L (21.0-31.0)
[2017-08-08 21:58] LABS: ALLENS TEST YES-POS
[2017-08-08 21:59] LABS: INSPIRED O2 4L; PATIENT TEMP 100.1; VENTILATOR NO
[2017-08-08 22:08] LABS: BASOPHILS % (AUTO) 0 % (0-10); EOSINOPHILS # (AUTO) 0.1 10^3/uL (0.0-0.3); EOSINOPHILS % (AUTO) 1 % (0-10); HEMATOCRIT 44 % (35-52); HEMOGLOBIN 14.8 G/DL (11.5-16.0); LYMPHOCYTES # (AUTO) 0.9 X 10^3 (1.0-4.0); LYMPHOCYTES % (AUTO) 11 % (12-44); MEAN CORPUSCULAR HEMOGLOBIN 30 PG (25-34); MEAN CORPUSCULAR HGB CONC 34 G/DL (32-36); MEAN CORPUSCULAR VOLUME 89 FL (80-99); MEAN PLATELET VOLUME 10.9 FL (7.4-10.4); MONOCYTES # (AUTO) 0.8 X 10^3 (0.0-1.0); MONOCYTES % (AUTO) 9 % (0-12); NEUTROPHILS # (AUTO) 6.9 X 10^3 (1.8-7.8); NEUTROPHILS % (AUTO) 79 % (42-75); PLATELET COUNT 197 10^3/uL (130-400); RED CELL DISTRIBUTION WIDTH 14.4 % (10.0-14.5); WHITE BLOOD COUNT 8.7 10^3/uL (4.3-11.0)
[2017-08-08 22:20] LABS: INR 1.1 (0.8-1.4)
[2017-08-08 22:20] LABS: BILIRUBIN,URINE NEGATIVE (NEGATIVE); CLARITY,URINE CLEAR; COLOR,URINE YELLOW; GLUCOSE, URINE (UA) NEGATIVE (NEGATIVE); KETONES,URINE 2+ (NEGATIVE); LEUKOCYTE ESTERASE ,URINE NEGATIVE (NEGATIVE); NITRITE,URINE NEGATIVE (NEGATIVE); PH,URINE 8 (5-9); PROTEIN,URINE 2+ (NEGATIVE); UROBILINOGEN,URINE 4 MG/DL (NORMAL)
[2017-08-08] MEDS ORDERED: METO-387 PO (22:24)
[2017-08-08] MEDS ORDERED: ESCI20TA45 PO (22:24)
[2017-08-08 22:33] LABS: BACTERIA,URINE NEGATIVE /HPF; RBC,URINE 0-2 /HPF; WBC,URINE 0-2 /HPF
[2017-08-08] MEDS ORDERED: ACETAMINOPHEN 500 MG TAB (TYLENOL) PO ONE (23:15)
[2017-08-09 00:02] LABS: ALANINE AMINOTRANSFERASE 10 U/L (0-55); ALBUMIN 3.6 GM/DL (3.2-4.5); ALKALINE PHOSPHATASE 70 U/L (40-136); BILIRUBIN,TOTAL 1.1 MG/DL (0.1-1.0); BUN/CREATININE RATIO 18; CALCIUM 9.4 MG/DL (8.5-10.1); CARBON DIOXIDE 26 MMOL/L (21-32); CHLORIDE 99 MMOL/L (98-107); GFR ESTIMATED > 60; GLUCOSE 118 MG/DL (70-105); MAGNESIUM 1.6 MG/DL (1.8-2.4); POTASSIUM 3.9 MMOL/L (3.6-5.0); SODIUM 135 MMOL/L (135-145); TOTAL PROTEIN 6.7 GM/DL (6.4-8.2)
[2017-08-09] MEDS ORDERED: cefTRIAXone 1 GM (ROCEPHIN) VIAL ONE (00:14)
[2017-08-09] MEDS ORDERED: NS (IVPB) 100 ML ONE (00:14)
[2017-08-09] MEDS ORDERED: cefTRIAXone INJECTION 1,000 MG in NS (IVPB) 100 ML IV ONE (00:15)
--- OUTSIDE RECORDS SUMMARY | 2017-08-09 00:45 | XMS REPORT | Continuity of Care Document ---
Author Author [facility] Organization [facility] Address Unknown Phone Unavailable Allergies Active Description Code Type Severity Reaction Onset Reported/Identified Relationship to Patient Clinical Status Yes Penicillins [id number] Drug Allergy Severe EDEMA 11/25/2010 Medications There [...] ARIAN SALINAS MD Ot 276.1 HYPOSMOLALITY 01/29/2014 ARIAN SALINAS MD Ot 276.8 HYPOPOTASSEMIA 01/29/2014 ARIAN [...] SALINAS MD Ot 787.02 NAUSEA ALONE 01/29/2014 ARAIN SALINAS MD Ot 787.91 DIARRHEA 01/29/2014 ARIAN [...] ARIAN SALINAS MD Ot A41.9 01/11/2015 ARIAN SALINAS MD Ot E46 01/11/2015 ARIAN SALINAS MD Ot E83.52 01/11/2015 ARIAN SALINAS MD Ot F03.90 01/11/2015 ARIAN SALINAS MD Ot F05 01/11/2015 ARIAN SALINAS MD Ot F32.9 01/11/2015 ARIAN SALINAS MD Ot F41.9 01/11/2015 ARIAN SALINAS MD Ot I10 01/11/2015 ARIAN SALIANS MD Ot M12.9 01/11/2015 ARIAN SALINAS MD [...] MD Ot V58.61 ANTICOAGULANTS,LT,CURRENT USE 10/29/2016 GEORGE TEIXEIRA DATA ENTRY TECHNICIAN Ot D64.9 ANEMIA, UNSPECIFIED 10/29/2016 GEORGE TEIXEIRA DATA ENTRY TECHNICIAN Ot D72.819 DECREASED WHITE BLOOD CELL COUNT, UNSPEC 10/30/2016 GEORGE TEIXEIRA DATA ENTRY TECHNICIAN Ot D64.9 ANEMIA, UNSPECIFIED 10/30/2016 GEORGE TEIXEIRA DATA ENTRY TECHNICIAN Ot D72.819 DECREASED WHITE BLOOD CELL COUNT, UNSPEC 11/23/2016 GEORGE TEIXEIRAP Ot D64.9 ANEMIA, UNSPECIFIED 11/23/2016 GEORGE TEIXEIRAP [...] D72.819 DECREASED WHITE BLOOD CELL COUNT, UNSPEC 08/09/2017 ARIAN SALINAS MD Ot V58.61 ANTICOAGULANTS,LT,CURRENT USE 08/09/2017 ARIAN SALINAS MD Ot V58.83 ENCOUNTER FOR THERAPEUTIC DRUG MONITORIN 08/09/2017 ARIAN SALINAS MD Ot V54.13 AFTERC[facility] HEALING TRAUMATIC FX HIP 08/09/2017 ARIAN SALINAS MD Ot V58.61 ANTICOAGULANTS,LT,CURRENT USE 08/09/2017 GEORGE TEIXEIRAP Ot D64.9 ANEMIA, UNSPECIFIED 08/09/2017 GEORGE TEIXEIRAP Ot D72.819 DECREASED WHITE BLOOD [...] Status Pt. Type Provider Facility Loc./Unit Complaint [id number] 10/29/2016 08:14:00 10/29/2016 23:59:59 CLS Outpatient GEORGE TEIXEIRA [facility] LAB ELEVATED HCB LOW WBC [id number] 10/21/2015 09:11:00 10/24/2015 14:30:00 DIS Inpatient MERT CURRY DOI [facility] 4TH AMS [id number] 01/21/2015 15:19:00 01/21/2015 16:54:00 DIS Emergency JELENA CABA, JERSON Flannery [facility] ER FALL/HEAD LAC [id number] 01/11/2015 12:43:00 01/21/2015 13:18:00 DIS Inpatient ARIAN SALINAS MD [facility] [address] SWB--UTI/ADVACING DEMENTIA [id number] 01/08/2015 08:50:00 01/11/2015 12:35:00 DIS Inpatient ARIAN SALINAS MD Via [address] ALTERED MENTAL STATUS; UNCONTROLLED HTN;UTI;HYPOMAG [id number] 10/18/2014 08:24:00 10/18/2014 13:54:00 DIS Emergency HIRAM CABA, AZALEA Lowe [facility] ER CONFUSION [id number] 04/15/2014 15:50:00 04/16/2014 17:35:00 DIS Inpatient ARIAN SALINAS MD Via [address] UTI [id number] 01/27/2014 14:23:00 01/29/2014 13:55:00 DIS Inpatient ARIAN SALINAS MD Via [address] MARKED ELECTROLYTE ABNORMALITIES,AMS [id number] 05/27/2013 12:00:00 05/27/2013 23:59:59 CLS Outpatient ARIAN SALINAS MD [facility] HIP FX, COUMADIN THERAPY [id number] 04/28/2013 11:30:00 04/28/2013 23:59:59 CLS Outpatient ARIAN SALINAS MD [facility] ANTICOAG THERAPY [id number] 04/08/2013 14:48:00 04/08/2013 23:59:59 CLS Outpatient [id number] 03/18/2013 13:59:00 03/18/2013 23:59:59 CLS Outpatient [id number] 02/18/2013 13:42:00 02/18/2013 23:59:59 CLS Outpatient [id number] 01/14/2013 19:30:00 01/22/2013 16:00:00 DIS Inpatient MOSES MCKEON MD [facility] SURGICAL R HIP FX [id number] 08/09/2017 00:01:00 ACT Inpatient CHARLINE CABA, SHELLIE Donato [facility] 4TH SEPSIS,FEVER,HYPOXIA,S/P FALL, R PELVIS FX ,[facility], [id number] 02/01/2017 12:56:11 02/01/2017 23:59:59 CLS Outpatient [id number] 01/21/2015 15:19:42 ACT Document Registration
[2017-08-09 01:20] VITALS: BP 167/77
[2017-08-09] MEDS ORDERED: RT-ALBUTEROL/IPRATROPIUM 3 ML (DUONEB) VIAL INH PRN (02:45)
[2017-08-09 03:20] VITALS: BP 125/74
[2017-08-09] MEDS ORDERED: MAGNESIUM 1 GM/D5W 100 ML IVPB IV ONE (04:15)
[2017-08-09] MEDS ORDERED: AZITHROMYCIN 500 MG/NS 250 ML IVPB IV ONE ×2 (04:15)
[2017-08-09] MEDS: D5 1/2 NS 1000 ML IV SOLUTION 1,000 ML IV SCH ×3 (04:22→20:56)
[2017-08-09 05:20] VITALS: BP 135/77
[2017-08-09] MEDS: RT-ALBUTEROL/IPRATROPIUM 3 ML (DUONEB) VIAL INH SCH ×3 (07:23→18:43)
[2017-08-09 07:32] VITALS: BP 171/78
--- NOTE | 2017-08-09 07:45 | Diagnostic Imaging Report ---
INDICATION: Fall with right hand injury. AP, oblique and lateral views of the right hand are obtained. There is diffuse demineralization and diffuse degenerative change throughout the hand and wrist. There does appear to be mildly displaced intra-articular fracture involving the first distal phalanx. No other definite fracture is seen. IMPRESSION: Mildly displaced intra-articular fracture involving the distal phalanx of first digit. Clinical correlation at site of pain would be useful. Dictated by: Dictated on workstation # [id number]
--- NOTE | 2017-08-09 07:46 | Diagnostic Imaging Report ---
INDICATION: Fall. COMPARISON: None FINDINGS: 3 views of the right knee are obtained. There is mild generalized osteopenia. No acute fracture or osseous destructive process is seen. There is narrowing of the medial joint space and there is mild tricompartmental marginal spurring. There are several intra-articular loose bodies along the posterior aspect of the joint. There is tip of an intramedullary césar seen in the distal femur. IMPRESSION: Degenerative changes with multiple intra-articular loose bodies and generalized osteopenia. No acute fracture is suspected. Dictated by: Dictated on workstation # [id number]
--- NOTE | 2017-08-09 07:46 | Diagnostic Imaging Report ---
Indication: Fall and inability to raise the arms above the head, pain. Comparison: Limited axial images obtained during chest CT 01/15/2013 and PA and lateral chest radiographs of 06/09/2008. CT thoracic spine: Old stable T7 compression fracture deformity and intervally apparent however nonacute appearing T4 endplate compression fracture deformity. T4 shows some mild retropulsion of its lower endplate posteriorly. The bones are severely osteopenic which not only increases the risk of fracture but can make nondisplaced injuries radiographically imperceptible. The T2 supra- and inferior endplate compression fractures of uncertain acuity. No definite acute injury or paravertebral hemorrhage. Multiple old compressions in this degree of osteoporosis as well as underlying spondylosis make detection of new injuries very challenging at CT. Given the chronic acuity indeterminate findings, consider MRI as further evaluation, particularly if there is new back pain present. CT lumbar spine: At T12, inferior greater than superior endplate compression fracture deformity showed no obvious healing, this may be recent. L2 and L3 endplate compressions are of uncertain acuity without substantial retropulsion. An L4 fracture appears old and healed. Sacral ala showed no obvious acute finding. There is symphyseal degenerative change and postoperative changes to the partially visualized bilateral hips. Impression: There is acuity indeterminate T12, L2 and L3 fractures, old L4 fracture. Spondylosis and osteopenia. As this finding is similar to what is present in the thoracic spine with old as well as more indeterminate fracture acuities, evaluation limited by osteoporosis and degenerative changes, consider MRI as further evaluation in the setting of trauma and new spinal pain. Dictated by: Dictated on workstation # [id number]
--- NOTE | 2017-08-09 07:49 | Diagnostic Imaging Report ---
Indication: Fall Comparison: None Findings: AP view of the pelvis and 2 views of the right hip are obtained. There is mild generalized osteopenia. There appears to be a nondisplaced fracture of the superior pubic ramus on the right. Mild irregularity to the inferior pubic rami may be an additional fracture here. No additional acute fracture is seen. There are postoperative findings of left hip prosthesis and old right femoral pinning without unusual lucency reaction. There are soft tissue calcifications lateral to the proximal right femur. There are degenerative changes in the sacroiliac joints and spine. Impression: Suspect nondisplaced superior and inferior pubic rami fractures on the right. No additional acute fracture is seen. Dictated by: Dictated on workstation # [id number]
--- NOTE | 2017-08-09 07:50 | Diagnostic Imaging Report ---
Indication: Fall. Altered mental status. Comparison: 10/19/2005 Findings: Single frontal view of the chest is obtained. Heart size is at the limits of normal but unchanged. No central venous congestion. Thoracic aorta is tortuous but unchanged. Hiatal hernia is again suspected. No pneumothorax or pleural fluid demonstrated. There is some minimal patchy airspace disease at the right lung base. Left lung is clear. Impression: There is minimal right basilar atelectasis or infiltrate. No additional acute abnormality is seen. Suspect persistent hiatal hernia. Dictated by: Dictated on workstation # [id number]
--- NOTE | 2017-08-09 07:55 | Diagnostic Imaging Report ---
INDICATION: Fall. COMPARISON: None. FINDINGS: AP and lateral views of the right femur are obtained. There is an old internally fixed proximal right femoral fracture which appears healed. No unusual lucency or reaction is seen about the internal stabilization device. No acute fracture is suspected. Degenerative changes about the right hip and knee are noted. There are multiple intraarticular loose bodies seen at the knee and there are several soft tissue calcifications seen lateral to proximal right femur. IMPRESSION: Degenerative and postoperative changes. No acute fracture is suspected. Dictated by: Dictated on workstation # [id number]
[2017-08-09 07:58] LABS: BASOPHILS % (AUTO) 0 % (0-10); EOSINOPHILS # (AUTO) 0.3 10^3/uL (0.0-0.3); EOSINOPHILS % (AUTO) 4 % (0-10); HEMATOCRIT 41 % (35-52); HEMOGLOBIN 13.7 G/DL (11.5-16.0); LYMPHOCYTES # (AUTO) 1.2 X 10^3 (1.0-4.0); LYMPHOCYTES % (AUTO) 16 % (12-44); MEAN CORPUSCULAR HEMOGLOBIN 30 PG (25-34); MEAN CORPUSCULAR HGB CONC 34 G/DL (32-36); MEAN CORPUSCULAR VOLUME 91 FL (80-99); MEAN PLATELET VOLUME 10.7 FL (7.4-10.4); MONOCYTES # (AUTO) 0.6 X 10^3 (0.0-1.0); MONOCYTES % (AUTO) 9 % (0-12); NEUTROPHILS # (AUTO) 5.2 X 10^3 (1.8-7.8); NEUTROPHILS % (AUTO) 71 % (42-75); PLATELET COUNT 162 10^3/uL (130-400); RED CELL DISTRIBUTION WIDTH 13.9 % (10.0-14.5); WHITE BLOOD COUNT 7.3 10^3/uL (4.3-11.0)
--- NOTE | 2017-08-09 08:21 | Diagnostic Imaging Report ---
PROCEDURE: CT head, face, and cervical spine without contrast. TECHNIQUE: Multiple contiguous axial images were obtained through the head, neck, and facial bones without the use of intravenous contrast. Sagittal and coronal reformations through the cervical spine and facial bones were also performed. INDICATION: Fall COMPARISON: None FINDINGS: Head CT: No acute intracranial hemorrhage, mass effect or edema is seen. There is moderate diffuse atrophy. Ventricles appear normal. Malik-white junction is preserved. There are areas of hypodensity in the periventricular white matter which are likely related to chronic small vessel ischemic change. The paranasal sinuses and mastoids appear clear. Maxillofacial CT: No acute fracture, malalignment, or osseous destructive process is seen. Nasal septum is midline. The osteomeatal units appear patent. The orbits appear unremarkable. Paranasal sinuses appear clear. Cervical spine CT: No acute fracture or osseous destructive process is seen. Vertebral body heights appear maintained. There is some disc space narrowing in the lower cervical spine. There is facet arthropathy throughout the cervical spine with multiple levels of foraminal narrowing. No acute soft tissue abnormality is suspected. There is a 1.7 cm low-density left thyroid nodule. IMPRESSION: 1. No evidence of an acute intracranial abnormality. 2. No evidence of an acute maxillofacial fracture 3..No evidence of cervical spine abnormality. There is an incidental 1.7 cm left thyroid nodule which is indeterminate. Agree with [facility] interpretation Dictated by: Dictated on workstation # [id number]
[2017-08-09 08:28] LABS: ALANINE AMINOTRANSFERASE 10 U/L (0-55); ALBUMIN 3.4 GM/DL (3.2-4.5); ALKALINE PHOSPHATASE 62 U/L (40-136); BILIRUBIN,TOTAL 0.9 MG/DL (0.1-1.0); BUN/CREATININE RATIO 16; CALCIUM 9.4 MG/DL (8.5-10.1); CARBON DIOXIDE 25 MMOL/L (21-32); CHLORIDE 102 MMOL/L (98-107); CREATININE SERUM 0.74 MG/DL (0.60-1.30); GFR ESTIMATED > 60; GLUCOSE 116 MG/DL (70-105); POTASSIUM 3.7 MMOL/L (3.6-5.0); SODIUM 135 MMOL/L (135-145); TOTAL PROTEIN 6.3 GM/DL (6.4-8.2)
--- NOTE | 2017-08-09 08:37 | History & Physicial ---
History of Present Illness History of Present Illness Reason for visit/HPI PT IS AN 86 Y/O FEMALE WHO PRESENTED TO THE HOSPITAL WITH FALL X 2 AT HOME WITH FALLING IN KITCHEN, HIT HEAD AND HIP AND THEN FALLING IN HER ROOM DOWN TO HER KNEES - FAMILY REPORTS SHE HAD BEEN WELL UP UNTIL THE FALLING EPISODE AT HOME. THEY WERE PRESENT FOR HER FALLS BUT COULD NOT STOP HER MOMENTUM WHEN SHE WAS FALLIN TO THE GROUND. Date of Admission Aug 09, 2017 at 00:01 Date Seen by Provider: Aug 09, 2017 Time Seen by Provider: 08:20 I consulted on this patient on 08/09/17 0820 Attending Physician Shellie Davenport MD Admitting Physician Shellie Davenport MD Consult Allergies and Home Medications Allergies Coded Allergies: Penicillins (Unverified Allergy, Severe, EDEMA, 11/25/10) Home Medications Amlodipine Besylate 10 Mg Tablet, 10 MG PO DAILY, (Reported) Cholecalciferol (Vitamin D3) 1,000 Unit Capsule, 2,000 UNIT PO HS, (Reported) TAKES 2 (1000 UNIT) CAPSULES Clonazepam 1 Mg Tablet, 1 MG PO TID, (Reported) Cranberry Fruit 450 Mg Tablet, 2 TAB PO HS, (Reported) Escitalopram Oxalate 20 Mg Tablet, 20 MG PO DAILY, (Reported) Lisinopril 10 Mg Tablet, 10 MG PO DAILY, (Reported) Metoprolol Succinate 25 Mg Tab.er.24h, 25 MG PO DAILY, (Reported) Omeprazole 20 Mg Capsule.dr, 20 MG PO DAILY, (Reported) Pediatric Multivit Comb. No.49 1 Each Tab.chew, 2 TAB PO HS, (Reported) Potassium Chloride 10 Meq Tablet.er, 20 MEQ PO DAILY, (Reported) TAKES 2 (10MEQ) TABLETS Simvastatin 20 Mg Tablet, 20 MG PO HS, (Reported) Patient Home Medication List Home Medication List Reviewed: Yes Past Lvtjqwz-Tvtzqe-Oiqkzl Hx Patient Social History Marrital Status: single Living Status: LIVES WITH FAMILY AT THEIR HOME Employed/Student: retired Alcohol Use: Past History (OCCASIONALLY DRANK IN PAST, BUT NONE FOR 25 YEARS, PER DAUGHTER ON 08/08/17) Recreational Drug Use: No Smoking Status: Never a Smoker 2nd Hand Smoke Exposure: No Physical Abuse Screen: No Sexual Abuse: No Recent Foreign Travel: No Contact w/other who traveled: No Recent Hopitalizations: No Recent Infectious Disease Expo: No Immunizations Up To Date Tetanus Booster (TDap): Less than 5yrs Pediatric: No Date of Pneumonia Vaccine: Jan 27, 2014 Date of Influenza Vaccine: Jan 27, 2014 Seasonal Allergies Seasonal Allergies: No Surgeries Yes Eye Surgery, Gallbladder, Joint Replacement, Orthopedic Respiratory No Cardiovascular Yes Deep Vein Thrombosis, High Cholesterol, Hypertension Neurological No Reproductive System Hx Reproductive Disorders: No Genitourinary Yes UTI-Chronic Gastrointestinal No Musculoskeletal Yes (CHRONIC RIGHT ELBOW/ARM NON-UNION--MULTIPLE SURGERIES-FAILED. BILATERAL HIP FRACTURES/REPAIR; KNEE REPLACEMENT) Degenerate Disk Disease, Osteoporosis, Arthritis, Fractures Endocrine History of Endocrine Disorders: No HEENT History of HEENT Disorders: Yes HEENT Disorders: Cataract Loss of Vision: Denies Hearing Impairment: Bilateral Hearing Aide Cancer No Psychosocial History of Psychiatric Problem: Yes Behavioral Health Disorders: Anxiety, Depression Integumentary History of Skin or Integumenta: No Blood Transfusions History of Blood Disorders: No Adverse Reaction to a Blood Tr: No Reviewed Nursing Assessment Reviewed/Agree w Nursing PMH: Yes Family Medical History Significant Family History: Heart Disease, Hypertension Family Hx: Myocardial infarction 19 MOTHER, Onset:60 years & older Constitutional: No chills, No fever; malaise, weakness Respiratory: cough; No dyspnea on exertion, No short of breath Cardiovascular: No palpitations Gastrointestinal: No abdominal pain, No constipation, No diarrhea Genitourinary: no symptoms reported Musculoskeletal: muscle weakness, other (BACK AND HIP PAIN) Skin: No lesions; other (BRUISING ON ARMS) Psychiatric/Neurological: Anxiety, Depressed All Other Systems Reviewed Negative Unless Noted: Yes Physical Exam Vital Signs Vital Signs - First Documented 08/08/17 21:25 Temp 100.1 Pulse 94 Resp 20 B/P (MAP) 188/74 (112) Pulse Ox 94 O2 Delivery Room Air O2 Flow Rate 4.00 Capillary Refill : Less Than 3 SecondsLess Than 3 Seconds General Appearance: No Apparent Distress, WD/WN Eyes: Bilateral Eye Normal Inspection, Bilateral Eye PERRL, Bilateral Eye EOMI HEENT: PERRL/EOMI, Pharynx Normal Neck: Full Range of Motion, Supple Respiratory: Chest Non Tender, Lungs Clear, Normal Breath Sounds Cardiovascular: Regular Rate, Rhythm, No Edema Gastrointestinal: Normal Bowel Sounds, Non Tender, Soft Rectal: Deferred Back: Normal Inspection Extremity: Normal Capillary Refill, Non Tender, No Calf Tenderness Neurologic/Psychiatric: Alert, Other (ORIENTED TO PERSON) Skin: Warm/Dry, Ecchymosis Assessment/Plan Assessment and Plan FALL WITH RIGHT PELVIC FRACTURE RIGHT KNEE PAIN WITH LOOSE BODIES IN KNEE JOINT PNEUMONIA COUGH HYPERTENSION DEPRESSION ANXIETY PNEUMONIA WITH COUGH - MEROPENEM - PNEUMONIA PROTOCOL, MAT PROTOCOL, MONITOR SERIAL CHEST XRAYS, REPEAT LABS. PELVIC FRACTURE WITH RIGHT KNEE PAIN - CHECK CT SCAN OF KNEE - DEFER ANY TREATMENT TO DR. WELCH. HYPERTENSION - RESUME HOME MEDICATIONS, MONITOR BLOOD PRESSURE READINGS. DEPRESSION - RESUME HOME MEDICATIONS - (SUBSTITUTE LEXAPRO FOR CELEXA) ANXIETY - ON CLONAZEPAM - Admission Diagnosis FALL WITH RIGHT PELVIC FRACTURE RIGHT KNEE PAIN WITH LOOSE BODIES IN KNEE JOINT PNEUMONIA COUGH HYPERTENSION DEPRESSION ANXIETY Admission Status: Inpatient Order (span 2 midnights) Reason for Inpatient Admission: PT HAS PELVIC FRACTURE AND PNEUMONIA - WILL NEED 2 MIDNIGHTS FOR IV ANTIBIOTICS, PAIN CONTROL AND PLANS FOR PLACEMENT VERSUS GOING HOME WITH DTR. Clinical Quality Measures DVT/VTE Risk/Contraindication: Risk Factor Score Per Nursin RFS Level Per Nursing on Admit: 4+=Very High SHELLIE DAVENPORT MD Aug 09, 2017 08:37
--- NOTE | 2017-08-09 08:54 | Diagnostic Imaging Report ---
PROCEDURE: CT chest, abdomen, and pelvis without contrast. TECHNIQUE: Multiple contiguous axial images were obtained through the chest, abdomen, and pelvis without the use of intravenous contrast. INDICATION: Altered mental status. Fall. COMPARISON: CT chest dated 01/05/2013. FINDINGS: CT CHEST: Evaluation of the pulmonary parenchyma is mildly degraded secondary to motion artifact. There is suggestion of a micronodular opacity associated with the lateral margins of the major fissure on the left measuring approximately 4-5 mm (image 30, series 2). There is also mild dependent atelectasis. There is no large effusion or pneumothorax. No other focal consolidation is identified. The cardiomediastinal structures show normal heart size. There is no large pericardial effusion. There is a large hiatal hernia. The stomach is nearly completely intrathoracic. There is moderate calcified aortic and coronary atherosclerosis. No pathologically enlarged or morphologically abnormal adenopathy is seen within the mediastinum, natalia, or axilla. Note is made of a 1.8 cm hypodensity associated with the left thyroid (image 10, series 2). The bony structures show multiple wedge-shaped compression deformities of the thoracic spine. These are better evaluated on the separately performed CT thoracic spine. CT ABDOMEN: A normal appendix cannot be adequately identified but there is no pericecal inflammation. There is scattered colonic diverticulosis but no CT evidence of acute diverticulitis. The small bowel loops are nondistended. Evaluation of the solid organs demonstrates asymmetric atrophy of the left kidney. The right kidney has an unremarkable noncontrast CT appearance. The spleen, pancreas, adrenal glands, and liver are unremarkable as well. There is no loculated fluid collection, free fluid, or free air within the abdomen. No abnormal mesenteric or retroperitoneal adenopathy is seen. There is diffuse calcified aortic and arterial atherosclerosis. Multiple compression fractures of the lumbar spine are also noted and further discussed on the separate CT of the lumbar spine. CT PELVIS: Evaluation of the osseous structures demonstrates an acute appearing oblique nondisplaced fracture of the right inferior pubic ramus. An old healed fracture of the left inferior pubic ramus is also identified. There is some subtle irregularity of the right sacral ala near the SI joint (image 83, series 2). The urinary bladder is essentially obscured secondary to metallic beam hardening artifact from the left hip prosthesis. There is an indwelling Mcguire catheter. A right hypodense ovarian cyst measures 2.8 cm in diameter. There is no loculated fluid collection, free fluid, or free air within the pelvis. No abnormal adenopathy is seen. IMPRESSION: 1. Acute appearing nondisplaced fracture of the right inferior pubic ramus. 2. Subtle irregularity of the right sacral ala is concerning for a sacral insufficiency fracture. The patient may be candidate for sacroplasty but correlation with an MR pelvis is recommended. Please note, these findings were not discussed on the [facility] report. The discrepancy will be called to the ER. 3. Asymmetric atrophy of the left kidney. 4. Hypodense right ovarian cyst. 5. No acute abnormality is seen within the chest. 6. Large hiatal hernia. 7. Micronodular density versus atelectasis or pleural thickening on the left. If the patient is in a high-risk category such as history of smoking, a 1 year followup to ensure stability could be considered. 8. Significant calcified aortic and coronary atherosclerosis as described above. 9. Hypodensity in the left thyroid lobe. Further characterization with a dedicated thyroid sonogram is recommended and could be performed on a nonemergent basis. 10. Multiple compression deformities of the thoracic and lumbar spine. Again, these are further evaluated and discussed on the separately performed CT of the thoracic and lumbar spine. Please refer to that report. The report was called and faxed to Sandee by abbe at 8:51 AM. Dictated by: Dictated on workstation # [id number]
[2017-08-09] MEDS ORDERED: AZITHROMYCIN 250 MG TAB (ZITHROMAX) PO SCH (09:00)
[2017-08-09] MEDS: amLODIPine 10 MG (NORVASC) TAB PO SCH (09:29)
--- NOTE | 2017-08-09 09:32 | Physical Therapy Evaluation ---
PT Evaluation-General Medical Diagnosis Admission Date Aug 09, 2017 at 00:01 Medical Diagnosis: sepsis/hypoxia/fall Onset Date: Aug 09, 2017 Therapy Diagnosis Therapy Diagnosis: generalized weakness/debility Height/Weight Height (Feet): 5 Height (Inches): 4.00 Weight (Pounds): 150 Weight (Ounces): 1.0 Precautions Precautions/Isolations: Fall Prevention, Standard Precautions Weight Bear Status Right Lower Extremity: Right Touch Toe Bearing Left Lower Extremity: Left Full Weight Bearing Referral Physician: Issac Reason for Referral: Evaluation/Treatment Medical History Pertinent Medical History: Arthritis, Dementia, HTN Additional Medical History left TKR, left THR Current History EMS secondary to fall and inability to stand/ambulate resulted in right pelvic fracture Reviewed History: Yes Social History Home: Single Level Current Living Status: Other Family Prior/[facility] Prior Level of Function Functional [place] Measure 0=Not Assessed/NA 4=Minimal Assistance 1=Total Assistance 5=Supervision or Setup 2=Maximal Assistance 6=Modified [place] 3=Moderate Assistance 7=Complete [place] D Bed Mobility: 4 Transfers (B,C,W/C) (FIM): 4 Gait: 1 Patient ambulates short distances per family report. Patient requires assistance from family for all mobility and ADL's per family report. PT Evaluation-Current Subjective Patient and family agree to PT. Pain Numeric Pain Scale: 0-No Pain Location: No Pain Reported Objective Patient Orientation: Person, Time Problem Solving: Fair Attachments: Oxygen, Mcguire Catheter, IV ROM/Strength ROM Lower Extremities bilateral LE WNL Strength Lower Extremities right knee flexion/extension 3-/5; hip flexion NT; DF/PF 3-/5 left knee flexion/extension 3/5; hip flexion NT; DF/PF 3/5 Integumentary/Posture Integumentary multiple contusions Bladder Incontinence: Mcguire Cath Posture slightly kyphotic Neuromuscular (Tone, Coordination, Reflexes) severely diminished coordination Sensory Vision: Functional Hearing: Impaired Sensation Right Lower Extremit: Intact Sensation Left Lower Extremity: Intact Transfers Functional [place] Measure 0=Not Assessed/NA 4=Minimal Assistance 1=Total Assistance 5=Supervision or Setup 2=Maximal Assistance 6=Modified [place] 3=Moderate Assistance 7=Complete [place] D Transfers (B, C, W/C) (FIM): 2 Scootin Rollin Supine to/from Sit: 2 Sit to/from Stand: 2 bed t/f WC(FIM only if WC use): 2 Patient attempted to perform TTWB right LE until ortho consult. Patient was unable to perform this tasking resulting in PT assist with SPT. Gait Mode of Locomotion: Wheelchair Anticipated Mode of Locomotion: Wheelchair Balance Sitting Static: Fair Sitting Dynamic: Fair Standing Static: Poor Standing Dynamic: Poor Assessment/Needs 86 y.o. female, will benefit from skilled PT to address functional strength and mobility to improve current LOF. From a PT standpoint, patient will require extended care facility or home with family assist to allow pelvic fracture to heal. Rehab Potential: Guarded PT Order Administrator Goals Penitentiary Goals PT Order Administrator Goals Time Frame: Aug 23, 2017 Transfers (B,C,W/C) (FIM): 4 Gait (FIM): 1 Gait distance (FIM): 1=up to 49 ft Distance: 15' Gait Level of Assist: 3 Gait Assistive Device: FWW PT Plan Problem List Problem List: Activity Tolerance, Functional Strength, Safety, Balance, Gait, Transfer, Bed Mobility Treatment/Plan Treatment Plan: Continue Plan of Care Treatment Plan: Bed Mobility, Education, Functional Activity [place], Functional Strength, Gait, Safety, Therapeutic Exercise, Transfers Treatment Duration: Aug 23, 2017 Frequency: 6 times per week Estimated Hrs Per Day: .5 hour per day Patient and/or Family Agrees t: Yes Safety Risks/Education Patient Education: Safety Issues Teaching Recipient: Patient, Family Teaching Methods: Discussion Response to Teaching: Verbalize Understanding Discharge Recommendations Therapy D/C Recommendations: Home w/ Family Support, Physical Therapy Home Care , Custodial (TCU/NH) Time/GCodes Time In: 831 Time Out: 858 Total Billed Treatment Time: 27 Total Billed Treatment 1 visit EVHigh 27 min G Codes Necessary: FILIBERTO Gordon PT Aug 09, 2017 09:31
[2017-08-09] MEDS ORDERED: SIMV20TA3 PO (10:19)
[2017-08-09] MEDS ORDERED: DOCU100C37 PO (10:19)
[2017-08-09] MEDS ORDERED: CHOL10007 PO (10:19)
[2017-08-09] MEDS ORDERED: MULT1TAB60 PO (10:19)
[2017-08-09] MEDS ORDERED: CLON1TAB4 PO (10:19)
[2017-08-09] MEDS ORDERED: POTA10TA10 PO (10:19)
[2017-08-09] MEDS ORDERED: PEDI1TAB35 PO (10:25)
--- NOTE | 2017-08-09 11:25 | Diagnostic Imaging Report ---
PROCEDURE: CT right lower extremity without contrast. TECHNIQUE: Axially acquired CT was obtained through the right lower extremity without intravenous contrast. Coronal and sagittal reformations were also performed. INDICATION: Recent falls. COMPARISON: Correlation is made with recent plain films of the right knee performed one day earlier. FINDINGS: Significant tricompartmental degenerative change is identified, most marked involving the medial and patellofemoral compartments where there is significant joint space narrowing and marginal spurring. No fractures are identified. No significant joint effusion is seen. There are numerous loose bodies present. Multiple corticated rounded loose bodies are identified in the posterior joint line at the midline and slightly medial. The largest is the most medial measuring 16 mm transverse by 10 mm AP by 12 mm cephalocaudal. There appears to be a large loose body along the anterior knee in the region of Hoffa's fat measuring 18 mm AP by 18 mm transverse by 12 mm cephalocaudal. There is chondrocalcinosis of the medial and lateral compartments. 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 There are numerous loose bodies present. No acute fracture is detected. Dictated by: Dictated on workstation # [id number]
[2017-08-09] MEDS: clonazePAM 0.5 MG (KlonoPIN) TAB PO SCH ×2 (11:45→20:56)
--- NOTE | 2017-08-09 12:13 | Diagnostic Imaging Report ---
PROCEDURE: MR imaging cervical spine without contrast. TECHNIQUE: Multiplanar, multisequence MR imaging of the cervical spine was performed without contrast. INDICATION: Fall and neck pain. COMPARISON: No prior MRI cervical spine study is available for comparison. FINDINGS: Curvature and alignment of the cervical spine is normal. The marrow signal intensity is unremarkable. No geographic marrow lesion or evidence of fracture is seen. The longitudinal ligaments appear to be intact. There is generalized disc desiccation, compatible with degenerative change. Cervical spinal cord demonstrates normal signal intensity and normal morphology. C2-C3: Unremarkable. C3-C4: Mild neuroforaminal narrowing is seen due to uncovertebral joint degenerative change. Central canal is patent. C4-C5: Unremarkable. C5-C6: Unremarkable. C6-C7: Unremarkable. C7-T1: There is dilatation of the nerve root sleeves in the lower cervical and upper thoracic spine. Paraspinous tissues are unremarkable. IMPRESSION: Mild cervical spondylosis. No focal disc protrusion is seen. There is no central canal or neuroforaminal stenosis. No cervical spine fracture or ligamentous injury is identified. Dictated by: Dictated on workstation # [id number]
[2017-08-09 15:30] VITALS: BP 148/67
[2017-08-09] MEDS ORDERED: ENOXAPARIN 30 MG/0.3 ML (LOVENOX) SYR SC SCH (19:30)
[2017-08-09] MEDS: cefTRIAXone 1 GM/NS 100 ML IVPB IV SCH ×2 (20:56)
[2017-08-09] MEDS: SIMvastatin 20 MG (ZOCOR) TAB PO SCH (20:56)
[2017-08-09] MEDS ORDERED: CRANBERRY FRUIT PO SCH (21:00)
[2017-08-09] MEDS ORDERED: NON-FORMULARY MEDICATION 1 EA EA (Simvastatin 20 MG) PO SCH (21:00)
[2017-08-10] VITALS: BP 146/65
[2017-08-10] MEDS: PANTOPRAZOLE 20 MG TABLET (PROTONIX) PO SCH (06:01)
[2017-08-10] MEDS: D5 1/2 NS 1000 ML IV SOLUTION 1,000 ML IV SCH ×3 (06:01→21:37)
[2017-08-10 06:14] LABS: HEMOGLOBIN 12.2 G/DL (11.5-16.0); MEAN PLATELET VOLUME 11.1 FL (7.4-10.4); RED BLOOD COUNT 4.01 10^6/uL (4.35-5.85); RED CELL DISTRIBUTION WIDTH 14.1 % (10.0-14.5); WHITE BLOOD COUNT 6.4 10^3/uL (4.3-11.0)
[2017-08-10 06:36] LABS: BUN/CREATININE RATIO 12; CARBON DIOXIDE 26 MMOL/L (21-32); CHLORIDE 103 MMOL/L (98-107); CREATININE SERUM 0.68 MG/DL (0.60-1.30); POTASSIUM 3.5 MMOL/L (3.6-5.0); SODIUM 136 MMOL/L (135-145)
[2017-08-10 06:37] LABS: ALANINE AMINOTRANSFERASE 9 U/L (0-55); ALKALINE PHOSPHATASE 52 U/L (40-136); BILIRUBIN,TOTAL 0.5 MG/DL (0.1-1.0); CALCIUM 8.9 MG/DL (8.5-10.1); GFR ESTIMATED > 60; GLUCOSE 109 MG/DL (70-105); TOTAL PROTEIN 5.6 GM/DL (6.4-8.2)
[2017-08-10] MEDS ORDERED: KCL 10 MEQ TAB (MICRO K) PO SCH (07:00)
[2017-08-10] MEDS: RT-ALBUTEROL/IPRATROPIUM 3 ML (DUONEB) VIAL INH SCH ×3 (07:08→18:18)
[2017-08-10 08:00] VITALS: BP 162/73
[2017-08-10] MEDS: fentaNYL INJECTION 100 MCG/2 ML AMP IV PRN ×2 (08:38→12:50)
--- NOTE | 2017-08-10 08:48 | Physical Therapy Daily Note ---
PT Daily Note-Current Subjective Patient in bed pre tx, agrees to PT, states she has no complaints of pain at rest. Appearance Patient in recliner post tx with legs elevated, has nurse call, tray, all needs met. Up to eat breakfast. Mental Status Patient Orientation: Person, Situation Attachments: Oxygen Transfers Functional [place] Measure 0=Not Assessed/NA 4=Minimal Assistance 1=Total Assistance 5=Supervision or Setup 2=Maximal Assistance 6=Modified [place] 3=Moderate Assistance 7=Complete IndependenceIRFPAI Quality Coding Scale 6 Independent with activity with or without an assistive device 5 Patient requires set up or clean up by helper. Patient completes activity by themselves 4 Supervision or touching assist (CGA). [place] provide cues , steadying assist 3 The helper provides less than half the effort to complete the activity 2 The helper provides more than half the effort to complete the activity 1 Dependent. The helper does all the effort to complete an activity 7 Patient refused to complete or attempt activity 9 The patient did not perform the activity before the current illness or injury 88 Not attempted due to Medical conditions or safety concerns Transfers (B, C, W/C) (FIM): 3 Scootin Rollin Supine to/from Sit: 3 Sit to/from Stand: 3 Bed to/from Chair: 3 Patient mod assist with bed mobility and transfers. She tried to stand at the edge of the bed with a rolling walker but could not stand on her own and take steps. Weight Bearing Right Lower Extremity: Right Weight Bearing/Tolerated Left Lower Extremity: Left Weight Bearing/Tolerated Treatments bed mobility, transfers, Assessment Current Status: Fair Progress improved transfer PT After School Teacher Goals Shelter Goals PT After School Teacher Goals Time Frame: Aug 23, 2017 Transfers (B,C,W/C) (FIM): 4 Gait (FIM): 1 Gait distance (FIM): 1=up to 49 ft Distance: 15' Gait Level of Assist: 3 Gait Assistive Device: FWW PT Plan Problem List Problem List: Activity Tolerance, Functional Strength, Safety, Balance, Gait, Transfer, Bed Mobility, ROM Treatment/Plan Treatment Plan: Continue Plan of Care Treatment Plan: Bed Mobility, Education, Functional Activity [place], Functional Strength, Gait, Safety, Therapeutic Exercise, Transfers Treatment Duration: Aug 23, 2017 Frequency: 6 times per week Estimated Hrs Per Day: .5 hour per day Patient and/or Family Agrees t: Yes Safety Risks/Education Patient Education: Transfer Techniques, Correct Positioning, Safety Issues Teaching Recipient: Patient Teaching Methods: Demonstration, Discussion Response to Teaching: Reinforcement Needed Time/GCodes Time In: 829 Time Out: 842 Total Billed Treatment Time: 13 Total Billed Treatment 1 visit FA Sakina JEROMY HARDING PT Aug 10, 2017 08:48
[2017-08-10] MEDS ORDERED: OMEPRAZOLE 20 MG (PriLOSEC) CAP NON-FORMULARY PO SCH (09:00)
[2017-08-10] MEDS ORDERED: NON-FORMULARY MEDICATION 1 EA EA (Lisinopril 10 MG) PO SCH (09:00)
--- NOTE | 2017-08-10 10:16 | Diagnostic Imaging Report ---
EXAMINATION: CHEST (PA AND LATERAL) CLINICAL INDICATION: 86-year-old female, cough. COMPARISON: 08/08/2017. FINDINGS: Stable overall appearance of the cardiomediastinal silhouette. There is no identified pneumothorax. There is mild elevation of the right hemidiaphragm. There is mild blunting of a posterior costophrenic angle which may potentially indicate a trace right and/or left pleural effusion. There is a hiatal hernia. There are redemonstrated right rib deformities. There is hardware in the right humerus. IMPRESSION: 1. Mild blunting of a posterior costophrenic angle likely relating to a trace right and/or left pleural effusion. 2. Hiatal hernia. 3. No definite airspace consolidation. Dictated by: Dictated on workstation # [id number]
[2017-08-10] MEDS: clonazePAM 0.5 MG (KlonoPIN) TAB PO SCH (10:34)
[2017-08-10] MEDS: VITAMIN D3 1,000 UNITS (CHOLECALCIFEROL) TABLET PO SCH (10:34)
[2017-08-10] MEDS: amLODIPine 10 MG (NORVASC) TAB PO SCH (10:34)
[2017-08-10] MEDS: AZITHROMYCIN 250 MG TAB (ZITHROMAX) PO SCH (10:34)
[2017-08-10] MEDS: lisINopril 10 MG (PRINIVIL) TABLET PO SCH (10:34)
--- NOTE | 2017-08-10 11:22 | Progress Note-Hospitalist ---
Subjective HPI/CC On Admission Date Seen by Provider: Aug 10, 2017 Time Seen by Provider: 10:30 Subjective/Events-last exam Patient fairly depressed considering she will require skilled care at least temporarily until pelvic fractures are healed Patient requires catheter due to inability to get up and around to go to the commode with any type of efficiency and with a great deal of pain Patient is much improved overall but she is very nervous Physical therapy did get her up the x-ray was done and then put her back to bed Checked meds and labs Reviewed primary care provider note Potassium is low so we will change dosing frequency to twice a day Review of Systems General: Fatigue, Malaise Pulmonary: Cough Musculoskeletal: other (pelvic and hip pain) Focused Exam Lactate Level 08/08/17 22:00: Lactic Acid Level 1.34 Objective Exam Vital Signs Vital Signs Date Time Temp Pulse Resp B/P (MAP) Pulse Ox O2 Delivery O2 Flow Rate FiO2 08/08/17 21:25 100.1 94 20 188/74 (112) 94 Room Air 08/08/17 21:25 4.00 Capillary Refill : Less Than 3 SecondsLess Than 3 Seconds General Appearance: No Apparent Distress, WD/WN, Chronically ill Neck: Full Range of Motion, Normal Inspection Respiratory: Lungs Clear, Normal Breath Sounds, Decreased Breath Sounds Cardiovascular: Regular Rate, Rhythm, No Edema Neurologic/Psychiatric: Alert, Oriented x3, Depressed Affect, Other ([place]) Skin: Normal Color, Warm/Dry Results/Procedures Lab Laboratory Tests 08/10/17 05:20 Patient resulted labs reviewed. Assessment/Plan Assessment and Plan Assess & Plan/Chief Complaint Assessment: Fall with pelvic fractures Pneumonia on abx Debility Anxiety Depression Hypokalemia Plan: Monitor pain Lovenox Abx Add IS Needs NH placement Diagnosis/Problems Diagnosis/Problems (1) Pneumonia of right lower lobe due to infectious organism Status: Acute (2) Hypokalemia Status: Acute (3) Anxiety Status: Chronic (4) Sepsis Status: Acute Qualifiers: Sepsis type: sepsis due to unspecified organism Qualified Codes: A41.9 - Sepsis, unspecified organism (5) Status post fall Status: Acute (6) Fracture of right pelvis Status: Acute Qualifiers: Encounter type: initial encounter Pelvic bone location: acetabulum Sublocation of acetabulum: unspecified portion of acetabulum Fracture type: closed Fracture alignment: nondisplaced Qualified Codes: S32.401A - Unspecified fracture of right acetabulum, initial encounter for closed fracture Clinical Quality Measures DVT/VTE Risk/Contraindication: Risk Factor Score Per Nursin RFS Level Per Nursing on Admit: 4+=Very High NELSON CURRY DO Aug 10, 2017 11:22
[2017-08-10] MEDS ORDERED: LACTULOSE SYRUP 10GM/15ML (ENULOSE) 30ML UDC PO PRN (11:30)
[2017-08-10] MEDS: clonazePAM 1 MG (KlonoPIN) TAB PO SCH ×2 (14:34→21:36)
[2017-08-10 15:30] VITALS: BP 141/65
[2017-08-10] MEDS: ENOXAPARIN 40 MG/0.4 ML (LOVENOX) SYR SC SCH (19:21)
[2017-08-10] MEDS: DOCUSATE SODIUM 100 MG (COLACE) CAP PO SCH (21:36)
[2017-08-10] MEDS: SIMvastatin 20 MG (ZOCOR) TAB PO SCH (21:36)
[2017-08-10] MEDS: cefTRIAXone 1 GM/NS 100 ML IVPB IV SCH ×2 (21:36)
[2017-08-10] MEDS: KCL 10 MEQ TAB (MICRO K) PO SCH (21:36)
[2017-08-10 23:25] VITALS: BP 134/63
[2017-08-11] MEDS: MULTIVIT W/MINERALS TAB (THERAGRAN M) PO SCH ×2 (06:23→21:32)
[2017-08-11] MEDS: PANTOPRAZOLE 20 MG TABLET (PROTONIX) PO SCH (06:23)
[2017-08-11] MEDS: RT-ALBUTEROL/IPRATROPIUM 3 ML (DUONEB) VIAL INH SCH ×3 (06:58→19:50)
[2017-08-11 08:00] VITALS: BP 168/60
[2017-08-11] MEDS: D5 1/2 NS 1000 ML IV SOLUTION 1,000 ML IV SCH ×3 (09:18→22:55)
[2017-08-11] MEDS: AZITHROMYCIN 250 MG TAB (ZITHROMAX) PO SCH (09:41)
[2017-08-11] MEDS: clonazePAM 1 MG (KlonoPIN) TAB PO SCH ×3 (09:41→21:32)
[2017-08-11] MEDS: lisINopril 10 MG (PRINIVIL) TABLET PO SCH (09:42)
[2017-08-11] MEDS: KCL 10 MEQ TAB (MICRO K) PO SCH ×2 (09:42→21:32)
[2017-08-11] MEDS: amLODIPine 10 MG (NORVASC) TAB PO SCH (09:42)
[2017-08-11] MEDS: DOCUSATE SODIUM 100 MG (COLACE) CAP PO SCH ×2 (09:42→20:15)
[2017-08-11] MEDS: VITAMIN D3 1,000 UNITS (CHOLECALCIFEROL) TABLET PO SCH (09:42)
--- NOTE | 2017-08-11 11:33 | Progress Note-Hospitalist ---
Subjective HPI/CC On Admission Date Seen by Provider: Aug 11, 2017 Time Seen by Provider: 11:00 Subjective/Events-last exam Patient appears to be more withdrawn today Hard of hearing makes communication difficult Patient was sleeping soundly when I walked in Denies any pain as long as she doesn't move Catheter remains due to immobile status Lovenox for DVT prophylaxis RN has no other concerns Review of Systems General: Fatigue Pulmonary: Cough Musculoskeletal: other (Hip and back and pelvis pain) Focused Exam Lactate Level 08/08/17 22:00: Lactic Acid Level 1.34 Objective Exam Vital Signs Vital Signs Date Time Temp Pulse Resp B/P (MAP) Pulse Ox O2 Delivery O2 Flow Rate FiO2 08/08/17 21:25 100.1 94 20 188/74 (112) 94 Room Air 08/08/17 21:25 4.00 Capillary Refill : Less Than 3 SecondsLess Than 3 Seconds General Appearance: No Apparent Distress, WD/WN, Chronically ill Respiratory: Lungs Clear, Normal Breath Sounds, Decreased Breath Sounds Cardiovascular: Regular Rate, Rhythm, No Edema Neurologic/Psychiatric: Alert, Oriented x3, Depressed Affect Results/Procedures Lab Patient resulted labs reviewed. Assessment/Plan Assessment and Plan Assess & Plan/Chief Complaint Assessment: Fall with pelvic fractures Pneumonia on abx Debility Anxiety Depression Hypokalemia Plan: Monitor pain Lovenox Abx Add IS Needs NH placement Poor prognosis Diagnosis/Problems Diagnosis/Problems (1) Pneumonia of right lower lobe due to infectious organism Status: Acute (2) Hypokalemia Status: Acute (3) Anxiety Status: Chronic (4) Sepsis Status: Acute Qualifiers: Sepsis type: sepsis due to unspecified organism Qualified Codes: A41.9 - Sepsis, unspecified organism (5) Status post fall Status: Acute (6) Fracture of right pelvis Status: Acute Qualifiers: Encounter type: initial encounter Pelvic bone location: acetabulum Sublocation of acetabulum: unspecified portion of acetabulum Fracture type: closed Fracture alignment: nondisplaced Qualified Codes: S32.401A - Unspecified fracture of right acetabulum, initial encounter for closed fracture Clinical Quality Measures DVT/VTE Risk/Contraindication: Risk Factor Score Per Nursin RFS Level Per Nursing on Admit: 4+=Very High NELSON CURRY DO Aug 11, 2017 11:33
[2017-08-11 15:47] VITALS: BP 149/67
[2017-08-11] MEDS: ENOXAPARIN 40 MG/0.4 ML (LOVENOX) SYR SC SCH (19:50)
[2017-08-11] MEDS: cefTRIAXone 1 GM/NS 100 ML IVPB IV SCH ×2 (21:32)
[2017-08-11] MEDS: SIMvastatin 20 MG (ZOCOR) TAB PO SCH (21:32)
[2017-08-12] VITALS: BP 137/60
[2017-08-12] MEDS: D5 1/2 NS 1000 ML IV SOLUTION 1,000 ML IV SCH (02:35)
[2017-08-12] MEDS: PANTOPRAZOLE 20 MG TABLET (PROTONIX) PO SCH (05:59)
[2017-08-12 06:01] LABS: HEMOGLOBIN 11.1 G/DL (11.5-16.0); RED BLOOD COUNT 3.72 10^6/uL (4.35-5.85); RED CELL DISTRIBUTION WIDTH 14.2 % (10.0-14.5)
[2017-08-12 06:16] LABS: ALANINE AMINOTRANSFERASE 13 U/L (0-55); ALBUMIN 2.8 GM/DL (3.2-4.5); ALKALINE PHOSPHATASE 51 U/L (40-136); BILIRUBIN,TOTAL 0.4 MG/DL (0.1-1.0); BUN/CREATININE RATIO 14; CALCIUM 8.9 MG/DL (8.5-10.1); CARBON DIOXIDE 26 MMOL/L (21-32); CHLORIDE 104 MMOL/L (98-107); CREATININE SERUM 0.63 MG/DL (0.60-1.30); GFR ESTIMATED > 60; GLUCOSE 104 MG/DL (70-105); POTASSIUM 4.5 MMOL/L (3.6-5.0); SODIUM 137 MMOL/L (135-145); TOTAL PROTEIN 5.2 GM/DL (6.4-8.2)
[2017-08-12 08:00] VITALS: BP 141/65
[2017-08-12] MEDS: AZITHROMYCIN 250 MG TAB (ZITHROMAX) PO SCH (08:45)
[2017-08-12] MEDS: DOCUSATE SODIUM 100 MG (COLACE) CAP PO SCH ×2 (08:45→20:30)
[2017-08-12] MEDS: lisINopril 10 MG (PRINIVIL) TABLET PO SCH (08:45)
[2017-08-12] MEDS: KCL 10 MEQ TAB (MICRO K) PO SCH ×2 (08:45→20:30)
[2017-08-12] MEDS: clonazePAM 1 MG (KlonoPIN) TAB PO SCH ×3 (08:45→20:30)
[2017-08-12] MEDS: VITAMIN D3 1,000 UNITS (CHOLECALCIFEROL) TABLET PO SCH (08:45)
[2017-08-12] MEDS: amLODIPine 10 MG (NORVASC) TAB PO SCH (08:45)
[2017-08-12 08:53] VITALS: BP 137/60
[2017-08-12] MEDS: RT-ALBUTEROL/IPRATROPIUM 3 ML (DUONEB) VIAL INH SCH ×2 (08:53→19:25)
--- NOTE | 2017-08-12 09:15 | Progress Note ---
Subjective Date Seen by Provider: Aug 12, 2017 Time Seen by Provider: 08:00 Subjective/Events-last exam PT IS AN 86 Y/O FEMALE WHO IS HOSPITALIZED FOR PELVIC FRACTURE - THE PT IS HESITANT TO GO TO THE RESIDENTIAL BECAUSE SHE THINKS HER FAMILY CAN CARE FOR HER AT HOME. HER DAUGHTER IS REQUESTING FOR HER TO GO TO INPATIENT REHAB IF POSSIBLE. THE PT REPORTS THAT SHE DOESN'T HAVE ANY PAIN WHEN LYING DOWN IN BED. Review of Systems General: No Chills; Fatigue HEENT: No Head Aches Pulmonary: No Dyspnea, No Cough Cardiovascular: No: Chest Pain, Palpitations Gastrointestinal: No: Nausea, Abdominal Pain Musculoskeletal: back pain, leg pain Neurological: Weakness; No: Confusion Objective Exam Last Set of Vital Signs Vital Signs Date Time Temp Pulse Resp B/P (MAP) Pulse Ox O2 Delivery O2 Flow Rate FiO2 08/12/17 08:53 95 92 08/12/17 08:53 Nasal Cannula 2.00 08/12/17 00:00 98.0 16 137/60 (85) Capillary Refill : Less Than 3 SecondsLess Than 3 Seconds I&O Intake and Output 08/12/17 00:00 Intake Total 1420 ml Output Total 2375 ml Balance -955 ml Intake Oral 1420 ml Output Urine Total 2375 ml General: Alert, Oriented X3, Cooperative, Other (TEARFUL) HEENT: Atraumatic, PERRLA Neck: Supple Lungs: Clear to Auscultation, Other (DECREASED AIRMOVEMENT IN BASES) Heart: Regular Rate Abdomen: Normal Bowel Sounds, Soft Extremities: No Clubbing Neuro: Normal Speech Psych/Mental Status: Mental Status NL, Other (TEARFUL) Results Lab Laboratory Tests 08/12/17 05:18: White Blood Count 6.0, Red Blood Count 3.72L, Hemoglobin 11.1L, Hematocrit 35, Mean Corpuscular Volume 95, Mean Corpuscular Hemoglobin 30, Mean Corpuscular Hemoglobin Concent 31L, Red Cell Distribution Width 14.2, Platelet Count 193, Mean Platelet Volume 11.0H, Sodium Level 137, Potassium Level 4.5, Chloride Level 104, Carbon Dioxide Level 26, Anion Gap 7, Blood Urea Nitrogen 9, Creatinine 0.63, Estimat Glomerular Filtration Rate > 60, BUN/Creatinine Ratio 14, Glucose Level 104, Calcium Level 8.9, Total Bilirubin 0.4, Aspartate Amino Transf (AST/SGOT) 17, Alanine Aminotransferase (ALT/SGPT) 13, Alkaline Phosphatase 51, Total Protein 5.2L, Albumin 2.8L Microbiology 08/08/17 Blood Culture - Preliminary, Resulted No growth 08/08/17 Influenza Types A,B Antigen (BRIAN) - Final, Complete Assessment/Plan Assessment/Plan Assess & Plan/Chief Complaint FALL WITH RIGHT PELVIC FRACTURE RIGHT KNEE PAIN WITH LOOSE BODIES IN KNEE JOINT PNEUMONIA COUGH HYPERTENSION DEPRESSION ANXIETY PNEUMONIA WITH COUGH - RESOLVED ON XRAY - FINISH PNEUMONIA PROTOCOL WITH ROCEPHIN AND AZITHROMYCIN, CONTINUE MAT PROTOCOL. PELVIC FRACTURE WITH RIGHT KNEE PAIN - NEGATIVE CT OF KNEE ON RIGHT, CERVICAL SPINE MRI NEGATIVE FOR FRACTURE - NO SURGICAL INTERVENTION NEEDED, AND NO TRAUMA CONSULT NEEDED. HYPERTENSION - RESUMED HOME MEDICATIONS, MONITOR BLOOD PRESSURE READINGS. DEPRESSION - RESUME HOME MEDICATIONS - (SUBSTITUTE LEXAPRO FOR CELEXA) ANXIETY - ON CLONAZEPAM CHRONICALLY AT HOME. DISCUSSED WITH INPATIENT REHAB THERAPY STAFF - THEY DID NOT FEEL LIKE PT QUALIFIED FOR INPT REHAB, THEREFORE, WILL ORDER BUTT MAKER TO WORK ON PLACEMENT AT [facility] (PER DTR'S REQUEST) FOR A SHORT STAY FOR REHAB AND STRENGTHENING - PLACEMENT TOMORROW 08/13/17. Clinical Quality Measures Admission Status Admission Dx FALL WITH RIGHT PELVIC FRACTURE RIGHT KNEE PAIN WITH LOOSE BODIES IN KNEE JOINT PNEUMONIA COUGH HYPERTENSION DEPRESSION ANXIETY DVT/VTE Risk/Contraindication: Risk Factor Score Per Nursin RFS Level Per Nursing on Admit: 4+=Very High SHELLIE OLIVIER MD Aug 12, 2017 09:15
--- NOTE | 2017-08-12 11:09 | Physical Therapy Daily Note ---
PT Daily Note-Current Subjective Patient in bed pre tx, agrees to PT, no complaints of pain at rest. Appearance Patient in recliner post tx with nurse call, phone, tray, all needs met. Mental Status Patient Orientation: Person, Confused, Place Transfers Functional [place] Measure 0=Not Assessed/NA 4=Minimal Assistance 1=Total Assistance 5=Supervision or Setup 2=Maximal Assistance 6=Modified [place] 3=Moderate Assistance 7=Complete IndependenceIRFPAI Quality Coding Scale 6 Independent with activity with or without an assistive device 5 Patient requires set up or clean up by helper. Patient completes activity by themselves 4 Supervision or touching assist (CGA). [place] provide cues , steadying assist 3 The helper provides less than half the effort to complete the activity 2 The helper provides more than half the effort to complete the activity 1 Dependent. The helper does all the effort to complete an activity 7 Patient refused to complete or attempt activity 9 The patient did not perform the activity before the current illness or injury 88 Not attempted due to Medical conditions or safety concerns Transfers (B, C, W/C) (FIM): 2 Scootin Rollin Supine to/from Sit: 2 Sit to/from Stand: 3 Bed to/from Chair: 2 Patient retropulsive when sitting and standing. She performed sit to stand x5 with mod assist. Weight Bearing Right Lower Extremity: Right Weight Bearing/Tolerated Left Lower Extremity: Left Weight Bearing/Tolerated Exercises Seated Therapy Exercises: Ankle pumps, Long arc quads, Hip flexion Seated Reps: 15 Treatments patient was transferred from supine to sit, performed sit to stand x5, transferred to recliner and performed sitting exercises with bilateral lower extremities Assessment Current Status: Fair Progress improved sit to stand PT [facility] Goals Final Inspector And Tester Goals PT Final Inspector And Tester Goals Time Frame: Aug 23, 2017 Transfers (B,C,W/C) (FIM): 4 Rollin Gait (FIM): 1 Gait distance (FIM): 1=up to 49 ft Distance: 15' Gait Level of Assist: 3 Gait Assistive Device: FWW PT Plan Problem List Problem List: Activity Tolerance, Functional Strength, Safety, Balance, Gait, Transfer, Bed Mobility, ROM Treatment/Plan Treatment Plan: Continue Plan of Care Treatment Plan: Bed Mobility, Education, Functional Activity [place], Functional Strength, Gait, Safety, Therapeutic Exercise, Transfers Treatment Duration: Aug 23, 2017 Frequency: 6 times per week Estimated Hrs Per Day: .5 hour per day Patient and/or Family Agrees t: Yes Safety Risks/Education Patient Education: Transfer Techniques, Correct Positioning, Safety Issues Teaching Recipient: Patient Teaching Methods: Demonstration, Discussion Response to Teaching: Reinforcement Needed Time/GCodes Time In: 1045 Time Out: 1100 Total Billed Treatment Time: 15 Total Billed Treatment 1 visit FA 15' JEROMY HARDING PT Aug 12, 2017 11:09
[2017-08-12 15:44] VITALS: BP 141/63
[2017-08-12] MEDS: ENOXAPARIN 40 MG/0.4 ML (LOVENOX) SYR SC SCH (18:24)
[2017-08-12] MEDS: cefTRIAXone 1 GM/NS 100 ML IVPB IV SCH ×2 (20:29)
[2017-08-12] MEDS: SIMvastatin 20 MG (ZOCOR) TAB PO SCH (20:30)
[2017-08-12] MEDS: MULTIVIT W/MINERALS TAB (THERAGRAN M) PO SCH (20:30)
[2017-08-12 23:44] VITALS: BP 149/67
[2017-08-13] MEDS: PANTOPRAZOLE 20 MG TABLET (PROTONIX) PO SCH (06:02)
[2017-08-13 07:12] VITALS: BP 170/75
[2017-08-13] MEDS: RT-ALBUTEROL/IPRATROPIUM 3 ML (DUONEB) VIAL INH SCH (07:17)
[2017-08-13] MEDS ORDERED: CLON1TAB4 PO (08:29)
[2017-08-13] MEDS ORDERED: ACET325T38 PO (08:29)
[2017-08-13] MEDS ORDERED: HYDR-3812 PO (08:29)
--- NOTE | 2017-08-13 08:31 | Discharge Inst-Skilled Nursing ---
Discharge Inst-Skilled NF Patient Instructions Patient Problems: FALL WITH RIGHT PELVIC FRACTURE RIGHT KNEE PAIN WITH LOOSE BODIES IN KNEE JOINT PNEUMONIA COUGH HYPERTENSION DEPRESSION ANXIETY Consult/Follow Up/Orders Follow Up Appt.: 1 WK WITH CHARLINE CRUZ Skilled NF Admit to: [facility] Certification (SNF) I certify that SNF services are required to be given on an inpatient basis because of the above named patient's need for intermediate care on a continuing basis for the conditions(s) for which he/she was receiving inpatient hospital services prior to his/her transfer to the SNF. [facility] Facility Order: Nursing Services (PLEASE PRE TREAT PT BEFORE PHYSICAL THERAPY WITH 1 HYDROCODONE), Motor Installer-Evaluate & Treat, Physical Therapy-Evaluate & Treat Discharge Diet: Regular Diet New & Resume Previous Orders Shellie Davenport Aug 13, 2017 08:29 SHELLIE DAVENPORT MD Aug 13, 2017 08:30
--- NOTE | 2017-08-13 08:33 | Discharge Summary ---
Diagnosis/Chief Complaint Date of Admission Aug 09, 2017 at 00:01 Date of Discharge Discharge Date: Aug 13, 2017 Discharge Time: 1000 Admission Diagnosis Admission Diagnosis FALL WITH RIGHT PELVIC FRACTURE RIGHT KNEE PAIN WITH LOOSE BODIES IN KNEE JOINT PNEUMONIA COUGH HYPERTENSION DEPRESSION ANXIETY Discharge Diagnosis FALL WITH RIGHT PELVIC FRACTURE RIGHT KNEE PAIN WITH LOOSE BODIES IN KNEE JOINT PNEUMONIA COUGH HYPERTENSION DEPRESSION ANXIETY Reason Hospital Visit PT IS AN 86 Y/O FEMALE WHO PRESENTED TO THE HOSPITAL WITH FALL X 2 AT HOME WITH FALLING IN KITCHEN, HIT HEAD AND HIP AND THEN FALLING IN HER ROOM DOWN TO HER KNEES - FAMILY REPORTS SHE HAD BEEN WELL UP UNTIL THE FALLING EPISODE AT HOME. THEY WERE PRESENT FOR HER FALLS BUT COULD NOT STOP HER MOMENTUM WHEN SHE WAS FALLIN TO THE GROUND. Discharge Summary Discharge Physical Examination Allergies: Coded Allergies: Penicillins (Unverified Allergy, Severe, EDEMA, 11/25/10) Vitals & I&Os General Appearance: Alert, Oriented X3, Cooperative, Other (TEARFUL) HEENT: Atraumatic, PERRLA Respiratory: Clear to Auscultation, Other (DECREASED AIRMOVEMENT IN BASES) Cardiovascular: Regular Rate Abdominal: Normal Bowel Sounds, Soft Extremities: No Clubbing Neuro: Normal Speech Psych/Mental Status: Mental Status NL, Other (TEARFUL) Hospital Course FALL WITH RIGHT PELVIC FRACTURE RIGHT KNEE PAIN WITH LOOSE BODIES IN KNEE JOINT PNEUMONIA COUGH HYPERTENSION DEPRESSION ANXIETY PNEUMONIA WITH COUGH - RESOLVED ON XRAY - FINISH PNEUMONIA PROTOCOL WITH ROCEPHIN AND AZITHROMYCIN, CONTINUE MAT PROTOCOL. PELVIC FRACTURE WITH RIGHT KNEE PAIN - NEGATIVE CT OF KNEE ON RIGHT, CERVICAL SPINE MRI NEGATIVE FOR FRACTURE - NO SURGICAL INTERVENTION NEEDED, AND NO TRAUMA CONSULT NEEDED. HYPERTENSION - RESUMED HOME MEDICATIONS, MONITOR BLOOD PRESSURE READINGS. DEPRESSION - RESUME HOME MEDICATIONS - (SUBSTITUTE LEXAPRO FOR CELEXA) ANXIETY - ON CLONAZEPAM CHRONICALLY AT HOME. DISCUSSED WITH INPATIENT REHAB THERAPY STAFF - THEY DID NOT FEEL LIKE PT QUALIFIED FOR INPT REHAB, THEREFORE, WILL ORDER JOURNALISTS AND OTHER WRITERS TO WORK ON PLACEMENT AT [facility] (PER DTR'S REQUEST) FOR A SHORT STAY FOR REHAB AND STRENGTHENING - PLACEMENT TODAY. Discharge Condition at discharge IMPROVING Instructions to patient/family Please see electronic discharge instructions given to patient. Discharge Medications Reviewed and agree with Discharge Medication list on patient's Discharge Instruction sheet Clinical Quality Measures DVT/VTE Risk/Contraindication: Risk Factor Score Per Nursin RFS Level Per Nursing on Admit: 4+=Very High SHELLIE OLIVIER MD Aug 13, 2017 08:33
[2017-08-13] MEDS: AZITHROMYCIN 250 MG TAB (ZITHROMAX) PO SCH (09:21)
[2017-08-13] MEDS: amLODIPine 10 MG (NORVASC) TAB PO SCH (09:21)
[2017-08-13] MEDS: KCL 10 MEQ TAB (MICRO K) PO SCH (09:21)
[2017-08-13] MEDS: VITAMIN D3 1,000 UNITS (CHOLECALCIFEROL) TABLET PO SCH (09:21)
[2017-08-13] MEDS: clonazePAM 1 MG (KlonoPIN) TAB PO SCH (09:22)
[2017-08-13] MEDS: DOCUSATE SODIUM 100 MG (COLACE) CAP PO SCH (09:22)
[2017-08-13] MEDS: lisINopril 10 MG (PRINIVIL) TABLET PO SCH (09:22)
== END 2017-08-13 11:35 | DRG 542 ==
LOC: EDUNIT# 21:21 → ER 21:22 → 4TH 08-09 00:01
PROVIDERS: ADMIT Family Medicine; ATTEND Family Medicine
DX: M80.051A Age-related osteoporosis with current pathological fracture, right femur, initial encounter for fracture (principal); J18.9 Pneumonia, unspecified organism; S80.01XA Contusion of right knee, initial encounter; M23.41 Loose body in knee, right knee; S00.83XA Contusion of other part of head, initial encounter; S00.03XA Contusion of scalp, initial encounter; S70.01XA Contusion of right hip, initial encounter; S60.221A Contusion of right hand, initial encounter; Z66 Do not resuscitate; R41.0 Disorientation, unspecified; I10 Essential (primary) hypertension; S53.104S Unspecified dislocation of right ulnohumeral joint, sequela; F32.9 Major depressive disorder, single episode, unspecified; F41.9 Anxiety disorder, unspecified; R09.02 Hypoxemia; E78.00 Pure hypercholesterolemia, unspecified; E87.6 Hypokalemia; M17.11 Unilateral primary osteoarthritis, right knee; M19.041 Primary osteoarthritis, right hand; H91.93 Unspecified hearing loss, bilateral; W01.190A Fall on same level from slipping, tripping and stumbling with subsequent striking against furniture, initial encounter; W18.39XA Other fall on same level, initial encounter; Y92.000 Kitchen of unspecified non-institutional (private) residence as the place of occurrence of the external cause; Y92.003 Bedroom of unspecified non-institutional (private) residence as the place of occurrence of the external cause; Z97.4 Presence of external hearing-aid; Z96.652 Presence of left artificial knee joint; Z86.718 Personal history of other venous thrombosis and embolism
CPT/HCPCS: 36415; 51702; 70450; 70486; 71045; 71046; 71250; 72125; 72128; 72131; 72141; 73130; 73552; 73562; 73700; 74176; 80053; 81000; 82805; 83605; 83735; 85025; 85027; 85610; 85730; 87040; 87804; 93005; 93041; 94640; 94664; 94760; 94761; 96374

== ENCOUNTER 2018-04-13 06:08 | Inpatient (IN) | payer MEDICARE, OTHER ==
[~2018-04-13] VITALS: Ht 167.6 cm; Wt 65.1 kg
[~2018-04-13 06:08] MED LIST changes: +ACET325T38 PO; -AMLO10TA2 PO; +AMLO10TA6 PO; +CHOL10007 PO; +CLON1TAB13 PO; -CLON1TAB4 PO; +DOCU100C37 PO; +ESCI20TA45 PO; +HYDR-3812 PO; +METO-387 PO; +MULT1TAB60 PO; +PEDI1TAB35 PO; +POTA10TA10 PO
--- NOTE | 2018-04-13 06:48 | ED General ---
General Chief Complaint: Altered Mental Status Stated Complaint: AMS Nursing Triage Note: TO ED VIA EMS. PER EMS FAMILY C/O NO URINE OUTPUT FOR 12 HOURS, CONFUSION FOR 12 HOURS, FEVER, CHILLS, HALLUCINATING THIS AM SEEING A MAN IN THE ROOM THAT WASN' T THERE. TEMP 101.1 PER EMS. Nursing Sepsis Screen: Possible Severe Sepsis Risk Source of Information: EMS Exam Limitations: No Limitations History of Present Illness Date Seen by Provider: Apr 13, 2018 Time Seen by Provider: 06:45 Initial Comments The patient is an 87-year-old white female known to me for many years as she clinic patient of [facility]. She was brought by ambulance after the family called reporting her to be very confused. This apparently started yesterday. They also stated that she had not urinated in 24 hours. Timing/Duration: 12-24 Hours Severity: Moderate Associated Systoms: Cough, Loss of Appetite Allergies and Home Medications Allergies Coded Allergies: Penicillins (Unverified Allergy, Severe, EDEMA, 11/25/10) Home Medications Acetaminophen 325 Mg Tablet, 325 MG PO TID Prescribed by: SHELLIE OLIVIER on 08/13/17828 Amlodipine Besylate 10 Mg Tablet, 10 MG PO DAILY, (Reported) Cholecalciferol (Vitamin D3) 1,000 Unit Capsule, 2,000 UNIT PO HS, (Reported) TAKES 2 (1000 UNIT) CAPSULES Clonazepam 1 Mg Tablet, 1 MG PO TID Prescribed by: SHELLIE OLIVIER on 08/13/17828 Cranberry Fruit 450 Mg Tablet, 2 TAB PO HS, (Reported) Escitalopram Oxalate 20 Mg Tablet, 20 MG PO DAILY, (Reported) Hydrocodone/Acetaminophen 1 Each Tablet, 1 EACH PO QID PRN for PAIN-MILD TO MODERATE Prescribed by: SHELLIE OLIVIER on 08/13/17828 Lisinopril 10 Mg Tablet, 10 MG PO DAILY, (Reported) Metoprolol Succinate 25 Mg Tab.er.24h, 25 MG PO DAILY, (Reported) Omeprazole 20 Mg Capsule.dr, 20 MG PO DAILY, (Reported) Pediatric Multivit Comb. No.49 1 Each Tab.chew, 2 TAB PO HS, (Reported) Potassium Chloride 10 Meq Tablet.er, 20 MEQ PO DAILY, (Reported) TAKES 2 (10MEQ) TABLETS Simvastatin 20 Mg Tablet, 20 MG PO HS, (Reported) Patient Home Medication List Home Medication List Reviewed: Yes Review of Systems Review of Systems Constitutional: other (she is very confused. She does not recognize me. She believes that she is at a hospital and has been so for a month.) Past Olqulwd-Kearzd-Dwidno Hx Patient Social History Alcohol Use: Denies Use Recreational Drug Use: No 2nd Hand Smoke Exposure: No Recent Foreign Travel: No Contact w/Someone Who Travel: No Recent Infectious Disease Expo: No Recent Hopitalizations: No Immunizations Up To Date Tetanus Booster (TDap): Unknown PED Vaccines UTD: No Date of Pneumonia Vaccine: Jan 27, 2014 Date of Influenza Vaccine: Jan 27, 2014 Seasonal Allergies Seasonal Allergies: No Past Medical History Surgeries: Yes Eye Surgery, Gallbladder, Joint Replacement, Orthopedic Respiratory: No Cardiac: Yes Deep Vein Thrombosis, High Cholesterol, Hypertension Neurological: No Reproductive Disorders: No Genitourinary: Yes UTI-Chronic Gastrointestinal: No Musculoskeletal: Yes Degenerate Disk Disease, Osteoporosis, Arthritis, Fractures Endocrine: No HEENT: Yes Cataract Loss of Vision: Denies Hearing Impairment: Bilateral Hearing Aide Cancer: No Psychosocial: Yes Anxiety, Depression Integumentary: No Blood Disorders: No Adverse Reaction/Blood Tranf: No Family Medical History Myocardial infarction 19 MOTHER, Onset:60 years & older Heart Disease, Hypertension Physical Exam-Suspected Sepsis Physical Exam Vital Signs Vital Signs - First Documented 04/13/18 06:09 Temp 100.0 Pulse 103 Resp 17 B/P (MAP) 147/79 (101) Pulse Ox 91 O2 Delivery Nasal Cannula O2 Flow Rate 2.00 Capillary Refill : Less Than 3 Seconds Blood Pressure Mean: 101 Height, Weight, BMI Height: 5'4.00" Weight: 161lbs. 0.6oz. [id number]; 25.7 BMI Method:Estimated General Appearance: Anxious Eyes: Bilateral Eye Normal Inspection HEENT: Normal ENT Inspection Neck: Normal Inspection Respiratory: Other (distant breath sounds and shallow respirations. Rattling cough.) Cardiovascular: Regular Rate, Rhythm Gastrointestinal: Normal Bowel Sounds, No Organomegaly, No Pulsatile Mass, Non Tender, Soft Back: Normal Inspection Extremity: Normal Capillary Refill, Normal Inspection, Normal Range of Motion, Non Tender, No Calf Tenderness, No Pedal Edema Skin: normal color Lymphatic: No Adenopathy Focused Exam Lactate Level 04/13/18 06:45: Lactic Acid Level 0.94 Lactic Acid Level Laboratory Tests Test 04/13/18 06:45 Lactic Acid Level 0.94 MMOL/L (0.50-2.00) Progress/Results/Core Measures Suspected Sepsis Recent Fever Within 48 Hours: Yes Infection Criteria Present: Suspected New Infection New/Unexplained Altered Menta: Yes Sepsis Screen: Possible Severe Sepsis Risk SIRS Temperature:100.0 Pulse: 103 Respiratory Rate: 17 Laboratory Tests 04/13/18 06:56: White Blood Count 8.1 Blood Pressure 147 /79 Mean: 101 04/13/18 06:45: Lactic Acid Level 0.94 Laboratory Tests 04/13/18 06:56: Creatinine 0.86, Platelet Count 173, Total Bilirubin 0.8 Results/Orders Lab Results Laboratory Tests Test 04/13/18 06:45 04/13/18 06:56 04/13/18 07:00 Range/Units Lactic Acid Level 0.94 0.50-2.00 MMOL/L White Blood Count 8.1 4.3-11.0 10^3/uL Red Blood Count 4.15 L 4.35-5.85 10^6/uL Hemoglobin 12.6 11.5-16.0 G/DL Hematocrit 38 35-52 % Mean Corpuscular Volume 92 80-99 FL Mean Corpuscular Hemoglobin 30 25-34 PG Mean Corpuscular Hemoglobin Concent 33 32-36 G/DL Red Cell Distribution Width 14.7 H 10.0-14.5 % Platelet Count 173 130-400 10^3/uL Mean Platelet Volume 10.3 7.4-10.4 FL Neutrophils (%) (Auto) 77 H 42-75 % Lymphocytes (%) (Auto) 13 12-44 % Monocytes (%) (Auto) 9 0-12 % Eosinophils (%) (Auto) 1 0-10 % Basophils (%) (Auto) 0 0-10 % Neutrophils # (Auto) 6.2 1.8-7.8 X 10^3 Lymphocytes # (Auto) 1.1 1.0-4.0 X 10^3 Monocytes # (Auto) 0.7 0.0-1.0 X 10^3 Eosinophils # (Auto) 0.0 0.0-0.3 10^3/uL Basophils # (Auto) 0.0 0.0-0.1 10^3/uL Sodium Level 133 L 135-145 MMOL/L Potassium Level 4.6 3.6-5.0 MMOL/L Chloride Level 99 98-107 MMOL/L Carbon Dioxide Level 23 21-32 MMOL/L Anion Gap 11 5-14 MMOL/L Blood Urea Nitrogen 20 H 7-18 MG/DL Creatinine 0.86 0.60-1.30 MG/DL Estimat Glomerular Filtration Rate > 60 BUN/Creatinine Ratio 23 Glucose Level 96 70-105 MG/DL Calcium Level 9.8 8.5-10.1 MG/DL Corrected Calcium 10.0 8.5-10.1 MG/DL Total Bilirubin 0.8 0.1-1.0 MG/DL Aspartate Amino Transf (AST/SGOT) 88 H 5-34 U/L Alanine Aminotransferase (ALT/SGPT) 111 H 0-55 U/L Alkaline Phosphatase 287 H 40-136 U/L Total Protein 7.2 6.4-8.2 GM/DL Albumin 3.8 3.2-4.5 GM/DL Urine Color YELLOW Urine Clarity CLOUDY H Urine pH 6 5-9 Urine Specific [place] 1.015 L 1.016-1.022 Urine Protein 2+ H NEGATIVE Urine Glucose (UA) NEGATIVE NEGATIVE Urine Ketones 2+ H NEGATIVE Urine Nitrite NEGATIVE NEGATIVE Urine Bilirubin NEGATIVE NEGATIVE Urine Urobilinogen NORMAL NORMAL MG/DL Urine Leukocyte Esterase 3+ H NEGATIVE Urine RBC (Auto) 3+ H NEGATIVE Urine RBC 2-5 H /HPF Urine WBC TNTC H /HPF Urine Squamous Epithelial Cells NONE /HPF Urine Crystals NONE /LPF Urine Amorphous Sediment FEW ORA URATES H /LPF Urine Bacteria LARGE H /HPF Urine Casts NONE /LPF Urine Mucus NEGATIVE /LPF Urine Culture Indicated YES My Orders Orders - ARIAN SALINAS MD Cbc With Automated Diff (04/13/18 06:17) Comprehensive Metabolic Panel (04/13/18 06:17) Lactic Acid Analyzer (04/13/18 06:17) Ua Culture If Indicated (04/13/18 06:17) Blood Culture (04/13/18 06:37) Chest 1 View, Ap/Pa Only (04/13/18 06:49) Urine Culture (04/13/18 07:00) Vital Signs/I&O 04/13/18 06:09 Temp 100.0 Pulse 103 Resp 17 B/P (MAP) 147/79 (101) Pulse Ox 91 O2 Delivery Nasal Cannula O2 Flow Rate 2.00 Capillary Refill : Less Than 3 Seconds Blood Pressure Mean: 101 Departure Communication (Admissions) UA shows WBCs too numerous to count. Lactic acid is 0.9. Discussed with Dr. See at 0741. The patient will be admitted. Impression Primary Impression: urinary tract infection/sepsis Disposition: ADMITTED INPATIENT Condition: Stable/Unchanged Admissions Decision to Admit Reason: Admit from ER (General) Decision to Admit/Date: Apr 13, 2018 Time/Decision to Admit Time: 07:43 Departure-Patient Inst. Referrals: SHELLIE OLIIVER MD (PCP/Family) Primary Care Physician ARIAN SALINAS MD Apr 13, 2018 06:48
[2018-04-13 07:06] LABS: BILIRUBIN,URINE NEGATIVE (NEGATIVE); COLOR,URINE YELLOW; GLUCOSE, URINE (UA) NEGATIVE (NEGATIVE); KETONES,URINE 2+ (NEGATIVE); LEUKOCYTE ESTERASE ,URINE 3+ (NEGATIVE); NITRITE,URINE NEGATIVE (NEGATIVE); PH,URINE 6 (5-9); PROTEIN,URINE 2+ (NEGATIVE); UROBILINOGEN,URINE NORMAL (NORMAL)
[2018-04-13 07:07] LABS: BASOPHILS % (AUTO) 0 % (0-10); EOSINOPHILS % (AUTO) 1 % (0-10); HEMATOCRIT 38 % (35-52); HEMOGLOBIN 12.6 G/DL (11.5-16.0); LYMPHOCYTES # (AUTO) 1.1 X 10^3 (1.0-4.0); LYMPHOCYTES % (AUTO) 13 % (12-44); MEAN CORPUSCULAR HEMOGLOBIN 30 PG (25-34); MEAN CORPUSCULAR HGB CONC 33 G/DL (32-36); MEAN CORPUSCULAR VOLUME 92 FL (80-99); MEAN PLATELET VOLUME 10.3 FL (7.4-10.4); MONOCYTES # (AUTO) 0.7 X 10^3 (0.0-1.0); MONOCYTES % (AUTO) 9 % (0-12); NEUTROPHILS # (AUTO) 6.2 X 10^3 (1.8-7.8); NEUTROPHILS % (AUTO) 77 % (42-75); PLATELET COUNT 173 10^3/uL (130-400); RED BLOOD COUNT 4.15 10^6/uL (4.35-5.85); RED CELL DISTRIBUTION WIDTH 14.7 % (10.0-14.5); WHITE BLOOD COUNT 8.1 10^3/uL (4.3-11.0)
--- NOTE | 2018-04-13 07:15 | Diagnostic Imaging Report ---
Indication: Altered mental status, fever, dyspnea. Comparison: 08/10/2017. Discussion: Single portable upright view of the chest was obtained. Stable normal heart size. Moderate hiatal hernia is again noted. No focal consolidation, pleural fluid, or pneumothorax. Elevated right hemidiaphragm is stable. Previous internal fixation of the right humerus is stable. Impression: 1. No acute cardiopulmonary process. Dictated by: Dictated on workstation # [id number]
[2018-04-13 07:16] LABS: CLARITY,URINE CLOUDY
[2018-04-13 07:17] LABS: BACTERIA,URINE LARGE /HPF; WBC,URINE TNTC /HPF
[2018-04-13 07:18] LABS: AMORPHOUS SEDIMENT,UR FEW AMOR URATES /LPF
[2018-04-13 07:28] LABS: ALANINE AMINOTRANSFERASE 111 U/L (0-55); ALBUMIN 3.8 GM/DL (3.2-4.5); ALKALINE PHOSPHATASE 287 U/L (40-136); BILIRUBIN,TOTAL 0.8 MG/DL (0.1-1.0); BUN/CREATININE RATIO 23; CALCIUM 9.8 MG/DL (8.5-10.1); CARBON DIOXIDE 23 MMOL/L (21-32); CHLORIDE 99 MMOL/L (98-107); CREATININE SERUM 0.86 MG/DL (0.60-1.30); GFR ESTIMATED > 60; GLUCOSE 96 MG/DL (70-105); POTASSIUM 4.6 MMOL/L (3.6-5.0); SODIUM 133 MMOL/L (135-145); TOTAL PROTEIN 7.2 GM/DL (6.4-8.2)
--- OUTSIDE RECORDS SUMMARY | 2018-04-13 07:43 | XMS REPORT | CCD ---
Author Author Morenita Don MD, [facility] Address [address] [place] [address] Phone Care Team Providers Care White Mixing Operator Name Role Phone PP Unavailable CCM Unavailable Summary Purpose Interface Exchange Insurance Providers Payer name Policy type / Coverage type Covered green party ID Effective Begin Date Effective End Date [employer] Medicare Part B [id number] 2016 Unknown [employer] Medicare Part B [id number] Unknown Family history Father Diagnosis Age At Onset Myocardial infarction Unknown Mother Diagnosis Age At Onset Myocardial infarction Unknown Social History Social History Element Codes Description Effective Dates Marital status Unknown 11/29/2015 Number of children Unknown 2 son at 3hrs old 11/29/2015 Employment Unknown Retired 11/29/[address]: 146352507 Never smoker 11/29/[address]: 529855068 Never drinks alcohol 11/29/2015 Allergies, Adverse Reactions, Alerts Substance Reaction Codes Entered Date Inactivated Date Status PENICILLINS Unknown 11/29/2015 No Inactive Date Active Past Medical History Illness Codes Condition Status Onset Date Resolved Date Essential (primary) hypertension ICD-9: 401.9 ICD-10: I10 Active 02/27/2016 Unknown Generalized anxiety disorder ICD-9: 300.02 ICD-10: F41.1 Active 02/27/2016 Unknown Major depressive disorder, recurrent, 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 Active 02/27/2016 Unknown Unsteadiness on feet ICD-9: 781.2 ICD-10: R26.81 Active 12/31/2017 Unknown Hypoxemia ICD-9: 799.02 ICD-10: R09.02 Active 10/29/2017 Unknown Sleep related hypoventilation in conditions classified elsewhere ICD-9: 327.26 ICD-10: G47.36 Active 10/29/2017 Unknown Encounter for general adult medical examination [...] 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 02/27/2016 Active Unsteadiness on feet ICD-9: 781.2 ICD-10: R26.81 12/31/2017 Active Hypoxemia ICD-9: 799.02 ICD-10: R09.02 10/29/2017 Active Sleep related hypoventilation in conditions classified elsewhere ICD-9: 327.26 ICD-10: G47.36 10/29/2017 Active Encounter for general adult medical examination without abnormal findings ICD-9: V70.0 ICD-10: Z00.00 08/23/2016 Active Mixed hyperlipidemia ICD-9: 272.2 ICD-10: E78.2 11/28/2015 Active Hypertension Unknown 08/21/2016 Active Gastro-esophageal reflux disease without esophagitis ICD-9: 530.81 ICD-10: K21.9 05/28/2016 Active Medications Medication Codes Instructions Start Date Stop Date Status Fill Instructions clonazepam 1 mg tablet RxNorm: 824331 1 Tablet(s) PO TID 201707/07/2018 Active citalopram 20 mg tablet RxNorm: 406704 1 Tablet(s) PO daily 07/21/2018 Active metoprolol succinate ER 25 mg tablet,extended release 24 hr RxNorm: 312157 1 Tablet(s) PO daily 01/20/2018 10/16/2018 Active citalopram 10 mg tablet RxNorm: 563406 1 Tablet(s) PO daily 07/201701/22/2018 Inactive clonazepam 1 mg tablet RxNorm: 121686 1 Tablet(s) PO TID 201704/07/2018 Inactive omeprazole 20 mg capsule,delayed release RxNorm: 560270 Capsule(s) TAKE 1 CAPSULE BY MOUTH EVERY DAY 06/03/2017 02/27/2018 Inactive Mobic 15 mg tablet RxNorm: 133772 Tablet(s) 1 TABLET(S) PO DAILY 06/03/2017 02/27/2018 Inactive amlodipine 10 mg tablet RxNorm: 071785 Tablet(s) TAKE 1 TABLET BY MOUTH EVERY DAY 06/03/2017 02/27/2018 Inactive lisinopril 10 mg tablet RxNorm: 929358 Tablet(s) TAKE 1 TABLET BY MOUTH EVERY DAY 06/03/2017 02/27/2018 Inactive potassium chloride ER 10 mEq tablet,extended release RxNorm: 211159 Tablet(s) TAKE 2 TABLETS BY MOUTH EVERY DAY 06/03/2017 02/27/2018 Inactive simvastatin 20 mg tablet RxNorm: 796404 Tablet(s) 1 TABLET(S) PO QPM 06/03/2017 02/27/2018 Inactive metoprolol succinate ER 25 mg tablet,extended release 24 hr RxNorm: 487201 1 Tablet(s) PO daily 06/03/2017 01/19/2018 Inactive Lexapro 20 mg tablet RxNorm: 254130 1 Tablet(s) PO QPM 201712/30/2017 Inactive clonazepam 1 mg tablet RxNorm: 597280 1 Tablet(s) PO TID 201710/08/2017 Inactive Mobic 15 mg tablet RxNorm: 474326 1 TABLET(S) PO DAILY 201606/02/2017 Inactive lisinopril 10 mg tablet RxNorm: 040300 TAKE 1 TABLET BY MOUTH EVERY DAY 04/05/2017 06/02/2017 Inactive metoprolol succinate ER 25 mg tablet,extended release 24 hr RxNorm: 573412 1 Tablet(s) PO daily 02/01/2017 06/02/2017 Inactive Lexapro 20 mg tablet RxNorm: 233133 1 Tablet(s) PO QPM TAKE 1 TABLET BY MOUTH EVERY EVENING 02/01/2017 02/01/2017 Inactive Lexapro 20 mg tablet RxNorm: 461718 1 Tablet(s) PO QPM 1 TABLET(S) PO QPM TAKE 1 TABLET BY MOUTH EVERY EVENING 02/01/2017 06/02/2017 Inactive Patient requests 90 days supply clonazepam 1 mg tablet RxNorm: 765849 1 Tablet(s) PO TID 201606/02/2017 Inactive Lexapro 20 mg tablet RxNorm: 282745 1 Tablet(s) PO QPM 1 TABLET(S) PO QPM TAKE 1 TABLET BY MOUTH EVERY EVENING 02/01/2017 01/31/2017 Inactive Patient requests 90 days supply metoprolol succinate ER 25 mg tablet,extended release 24 hr RxNorm: 786483 1 Tablet(s) PO daily 02/01/2017 01/31/2017 Inactive amlodipine 10 mg tablet RxNorm: 204843 TAKE 1 TABLET BY MOUTH EVERY DAY 01/15/2017 06/02/2017 Inactive potassium chloride ER 10 mEq tablet,extended release RxNorm: 440886 TAKE 2 TABLETS BY MOUTH EVERY DAY 12/04/201607/2017 Inactive Lexapro 20 mg tablet RxNorm: 624242 TAKE 1 TABLET BY MOUTH EVERY EVENING 11/12/2016 01/31/2017 Inactive omeprazole 20 mg capsule,delayed release RxNorm: 756774 TAKE 1 CAPSULE BY MOUTH EVERY DAY 10/29/2016 10/28/2016 Inactive omeprazole 20 mg capsule,delayed release RxNorm: 936903 TAKE 1 CAPSULE BY MOUTH EVERY DAY 10/29/2016 06/02/2017 Inactive L-Methylfolate 15 mg tablet RxNorm: 1 Tablet(s) PO daily 10/0801/31/2017 Inactive clonazepam 1 mg tablet RxNorm: 587090 1 Tablet(s) PO BID 201601/31/2017 Inactive L-Methylfolate 15 mg tablet RxNorm: 1 Tablet(s) PO daily 08/2810/07/2016 Inactive lisinopril 20 mg tablet RxNorm: 857442 1 Tablet(s) PO daily 11/18/2016 Inactive lisinopril 20 mg tablet RxNorm: 005097 1 Tablet(s) PO daily 11/18/2016 Inactive Deplin (algal oil) 15 mg-90.314 mg capsule RxNorm: 1 Capsule(s) PO daily 08/21/2016 08/27/2016 Inactive Lexapro 20 mg tablet RxNorm: 732716 1 TABLET(S) PO QPM 201612/30/2017 Inactive simvastatin 20 mg tablet RxNorm: 710987 1 TABLET(S) PO QPM 11/19/2016 Inactive Patient requests 90 days supply simvastatin 20 mg tablet RxNorm: 002770 1 Tablet(s) PO QPM 05/23/2016 Inactive Lexapro 20 mg tablet RxNorm: 047506 1 Tablet(s) PO QPM 201502/28/2016 Inactive Lexapro 20 mg tablet RxNorm: 136478 1 Tablet(s) PO QPM 1 TABLET(S) PO QPM 02/28/2016 12/30/2017 Inactive Patient requests 90 days supply tramadol 50 mg tablet RxNorm: 692369 1 Tablet(s) PO Q6 as needed for pain 02/27/2016 04/11/2016 Inactive potassium chloride ER 10 mEq tablet,extended release RxNorm: 277926 TAKE 2 TABLETS BY MOUTH EVERY DAY 02/27/2016 Inactive citalopram 20 mg tablet RxNorm: 163850 1 Tablet(s) PO QAM 02/2602/27/2016 Inactive clonazepam 1 mg tablet RxNorm: 486481 1 Tablet(s) PO BID 201512/30/2017 Inactive omeprazole 20 mg capsule,delayed release RxNorm: 687493 TAKE 1 CAPSULE BY MOUTH EVERY DAY 02/13/2016 10/28/2016 Inactive Mobic 15 mg tablet RxNorm: 354091 1 Tablet(s) PO daily 201502/03/2017 Inactive Multiple Vitamins Daily tablet RxNorm: 1 Tablet(s) PO daily 12/28/2015 Inactive amlodipine 10 mg tablet RxNorm: 033953 1 Tablet(s) PO daily 05/201512/30/2017 Inactive simvastatin 20 mg tablet RxNorm: 269192 1 Tablet(s) PO QPM 05/201512/28/2015 Inactive clonazepam 1 mg tablet RxNorm: 390663 1 Tablet(s) PO Q12H 11/2812/30/2017 Inactive Colace 100 mg capsule RxNorm: 3986303 1 Capsule(s) PO daily 05/201511/29/2015 Inactive citalopram 20 mg tablet RxNorm: 246728 1 Tablet(s) PO QAM 11/2812/28/2015 Inactive Mobic 15 mg tablet RxNorm: 896388 1 Tablet(s) PO daily 201512/30/2017 Inactive potassium chloride ER 10 mEq tablet,extended release RxNorm: 593227 2 Tablet(s) PO daily 20meq daily 11/29/20152015 Inactive lisinopril 10 mg tablet RxNorm: 715763 1 Tablet(s) PO daily 05/201512/30/2017 Inactive Coricidin HBP 10 mg-200 mg capsule RxNorm: 5655465 1 Capsule(s) PO PRN No Start Date Active cranberry 400 mg capsule RxNorm: 286154 1 Capsule(s) PO daily No Start Date Active Vitamin D3 1,000 unit tablet RxNorm: 108906 1 Tablet(s) PO daily No Start Date Active docusate sodium 100 mg tablet RxNorm: 8835354 1 Tablet(s) PO daily No Start Date Active Mobic 15 mg tablet RxNorm: 510327 1 Tablet(s) PO daily No Start Date 02/09/2016 Inactive Vitamin D3 1,000 unit tablet RxNorm: 368192 1 Tablet(s) PO daily No Start Date 06/02/2017 Inactive omeprazole 20 mg tablet,delayed release RxNorm: 118365 1 Tablet(s) PO daily No Start Date 06/02/2017 Inactive potassium chloride ER 10 mEq tablet,extended release RxNorm: 285422 2 Tablet(s) PO daily No Start Date 06/02/2017 Inactive clonazepam 1 mg tablet RxNorm: 874776 1 Tablet(s) PO BID No Start Date 02/26/2016 Inactive Aleve PM 220 mg-25 mg tablet RxNorm: 5748468 1 Tablet(s) PO daily No Start Date 05/27/2016 Inactive amlodipine 10 mg tablet RxNorm: 489113 1 Tablet(s) PO daily No Start Date 01/14/2017 Inactive lisinopril 10 mg tablet RxNorm: 195846 1 Tablet(s) PO daily No Start Date 08/20/2016 Inactive tramadol 50 mg tablet RxNorm: 036676 1 Tablet(s) PO Q6 PRN No Start Date 02/26/2016 Inactive Ultram 50 mg tablet RxNorm: 511553 1 Tablet(s) PO Q6 as needed No Start Date 11/28/2015 Inactive simvastatin 20 mg tablet RxNorm: 780847 1 Tablet(s) PO QHS No Start Date 06/02/2017 Inactive citalopram 20 mg tablet RxNorm: 475764 1 Tablet(s) PO daily No Start Date 02/26/2016 Inactive lisinopril 10 mg tablet RxNorm: 923592 1 Tablet(s) PO daily No Start Date 04/04/2017 Inactive omeprazole 20 mg capsule,delayed release RxNorm: 244473 1 Capsule(s) PO daily No Start Date 02/12/2016 Inactive Medication Administered No Medication Administered data Immunizations No Immunization data Assessments Condition Codes Effective Dates Major depressive disorder, recurrent, mild ICD-10: F33.0 ICD-9: 296.31 12/31/2017 Unsteadiness on feet ICD-10: R26.81 ICD-9: 781.2 12/31/2017 Generalized anxiety disorder ICD-10: F41.1 ICD-9: 300.02 12/31/2017 Essential (primary) hypertension ICD-10: I10 ICD-9: 401.9 12/31/2017 Hypoxemia ICD-10: R09.02 ICD-9: 799.02 10/29/2017 Sleep related hypoventilation in conditions classified elsewhere ICD-10: G47.36 ICD-9: 327.26 10/29/2017 Mixed hyperlipidemia ICD-10: E78.2 ICD-9: 272.2 08/23/2016 Encounter for general adult medical examination without abnormal findings ICD-10: Z00.00 ICD-9: V70.0 08/23/2016 Gastro-esophageal reflux disease without esophagitis ICD-10 : K21.9 ICD-9: 530.81 05/28/2016 Reason For Visit Reason For Visit Effective Dates Notes hypertension 12/31/2017 dyspnea 10/29/2017 depression 02/01/2017 hypertension 08/21/2016 hypertension 05/28/2016 hypertension 02/28/2016 cerumen 11/29/2015 Results Observation Observation Code Item Item Code Result Date Lipid Ord30 CHOL 155 mg/dL 10/09/2016 Lipid Ord30 HDL 55.0 mg/dl 10/09/2016 Lipid Ord30 TRIG 121 mg/dL 10/09/2016 Lipid Ord30 LDL 76 mg/dL 10/09/2016 Lipid Ord30 C/HDL 2.8 Ratio 10/09/2016 Comp Metabolic Mbc949 NA 136 mEq/L 10/09/2016 Comp Metabolic Ecx725 K 4.9 mEq/L 10/09/2016 Comp Metabolic Uat312 CL 97 mEq/L 10/09/2016 Comp Metabolic Ech231 CO2 30.0 mEq/L 10/09/2016 Comp Metabolic Icy497 ANION GAP 14 10/09/2016 Comp Metabolic Kwb195 GLUCOSE 66 mg/dL 10/09/2016 Comp Metabolic Mpa868 Creat 0.9 mg/dL 10/09/2016 Comp Metabolic Dbx174 eGFR 64 ml/min/1.73m2 10/09/2016 Comp Metabolic Oxy163 BUN 13 mg/dL 10/09/2016 Comp Metabolic Lgw947 B/C Ratio 14.6 Ratio 10/09/2016 Comp Metabolic Jfb997 CALCIUM 10.0 mg/dL 10/09/2016 Comp Metabolic Wbn598 ALK PHOS 59 U/L 10/09/2016 Comp Metabolic Itq301 AST(SGOT) 20 U/L 10/09/2016 Comp Metabolic Naz762 ALT(SGPT) 9 U/L 10/09/2016 Comp Metabolic Aag861 BILI T 0.4 mg/dL 10/09/2016 Comp Metabolic Dcd773 ALBUMIN 4.1 g/dL 10/09/2016 Comp Metabolic Ywf186 TPRO 7.1 g/dL 10/09/2016 Comp Metabolic Cmv335 GLOB 3.0 g/dL 10/09/2016 Comp Metabolic Qfy889 A/G Ratio 1.4 Ratio 10/09/2016 Comp Metabolic Ati106 Osmo 270 mOsmo 10/09/2016 Tsh Ord6 hTSH II 1.11 uIU/mL 10/09/2016 Cbc With Differential Ord2 WBC 4.46 K/ul 10/09/2016 Cbc With Differential Ord2 RBC 5.07 M/ul 10/09/2016 Cbc With Differential Ord2 HGB 15.8 g/dl 10/09/2016 Cbc With Differential Ord2 HCT 47.6 % 10/09/2016 Cbc With Differential Ord2 Neut% 50.2 % 10/09/2016 Cbc With Differential Ord2 MCV 93.9 fl 10/09/2016 Cbc With Differential Ord2 Lymph% 33.4 % 10/09/2016 Cbc With Differential Ord2 MCH 31.2 pg 10/09/2016 Cbc With Differential Ord2 Mccurtain% 13.7 % 10/09/2016 Cbc With Differential Ord2 Eos% 2.0 % 10/09/2016 Cbc With Differential Ord2 MCHC 33.2 pg 10/09/2016 Cbc With Differential Ord2 PLT 244 K/ul 10/09/2016 Cbc With Differential Ord2 Baso% 0.7 % 10/09/2016 Cbc With Differential Ord2 Neut ABS# 2.24 K/ul 10/09/2016 Cbc With Differential Ord2 RDW 13.9 % 10/09/2016 Cbc With Differential Ord2 Lymph ABS# 1.49 K/ul 10/09/2016 Cbc With Differential Ord2 Mccurtain ABS# 0.6 K/ul 10/09/2016 Cbc With Differential Ord2 Eos ABS# 0.1 K/ul 10/09/2016 Cbc With Differential Ord2 Baso ABS# 0.0 K/ul 10/09/2016 Review of Systems System Result Effective Dates Constitutional No recent illness 2017 Constitutional No anorexia 12/31/2017 Constitutional No night sweats 2017 Constitutional No chills 12/31/2017 Constitutional No diaphoresis 12/31/2017 Constitutional No fatigue 12/31/2017 Constitutional No fever 12/31/2017 Constitutional No insomnia 12/31/2017 Constitutional No malaise 12/31/2017 Constitutional No weight loss 12/31/2017 Constitutional No weight gain 12/31/2017 Eyes No eye discharge 12/31/2017 Eyes No eye erythema 12/31/2017 Ears/Nose/Throat/Neck No dizziness 2017 Ears/Nose/Throat/Neck No headache 2017 Ears/Nose/Throat/Neck cerumen 12/31/2017 Cardiovascular No chest pain/pressure 07/2017 Respiratory No cough 12/31/2017 Gastrointestinal No abdominal pain 2017 Gastrointestinal No constipation 2017 Gastrointestinal No diarrhea 12/31/2017 Genitourinary/Nephrology No dysuria 12/31 Genitourinary/Nephrology urinary incontinence 12/31/2017 Musculoskeletal back pain 12/31/2017 Dermatologic No rash 12/31/2017 Neurologic No alteration of consciousness 12/31/2017 Psychiatric anxiety 12/31/2017 Psychiatric depression 12/31/2017 Constitutional recent illness 10/29/2017 Constitutional No chills 10/29/2017 Constitutional No diaphoresis 10/29/2017 Constitutional No fever 10/29/2017 Eyes No eye erythema 10/29/2017 Ears/Nose/Throat/Neck No nasal discharge 10/29/2017 Ears/Nose/Throat/Neck No nasal allergies 10/29/2017 Cardiovascular No chest pain/pressure 06/2017 Respiratory No cough 10/29/2017 Respiratory No chest congestion 2017 Respiratory No dyspnea 10/29/2017 Respiratory dyspnea on exertion 2017 Respiratory daytime hypersomnolence 10/29 Gastrointestinal No abdominal pain 2017 Neurologic No alteration of consciousness 10/29/2017 Neurologic No mental status change 2017 Constitutional No recent illness 2016 Constitutional No [...] 1994 Constitutional general appearance Overall: well developed 12/31/2017 None Full Exam - General 1994 Constitutional general appearance Overall: in no acute distress 12/31/2017 None Full Exam - General 1994 Constitutional general appearance Overall: well nourished 12/31/2017 None Full Exam - General 1994 Eyes conjunctiva /eyelids Overall: conjunctiva clear 12/31/2017 None Full Exam - General 1994 Eyes pupils and irises Overall: pupils equal, round, reactive to light and accomodation 12/31/2017 None Full Exam - General 1994 Ears/Nose/Throat otoscopic exam Overall: external auditory canals clear 12/31/2017 None Full Exam - General 1994 Ears/Nose/Throat lips/teeth/gingiva Teeth: wears dentures 12/31/2017 [facility] Full Exam - General 1994 Respiratory auscultation Overall: breath sounds clear bilaterally 12/31/2017 None Full Exam - General 1994 Respiratory respiratory effort/rhythm Overall: no retractions 12/31/2017 None Full Exam - General 1994 Respiratory respiratory effort/rhythm Overall: normal rate 12/31/2017 None Full Exam - General 1994 Cardiovascular extremities Overall: no clubbing 12/31/2017 None Full Exam - General 1994 Cardiovascular auscultation of heart Overall: regular rate 12/31/2017 None Full Exam - General 1994 Cardiovascular auscultation of heart Overall: normal heart sounds 12/31/2017 None Full Exam - General 1994 Cardiovascular auscultation of heart Systolic murmur: holosystolic 12/31/2017 None Full Exam - General 1994 Cardiovascular auscultation of heart Systolic murmur grade: II/ 12/31/2017 None Full Exam - General 1994 Abdomen abdominal exam Overall: no tenderness 12/31/2017 None Full Exam - General 1994 Abdomen abdominal exam Overall: normal bowel sounds 12/31/2017 None Full Exam - General 1994 Lymphatic neck nodes Overall: anterior cervical chain benign 12/31/2017 None Full Exam - General 1994 Lymphatic neck nodes Overall: posterior cervical chain benign 12/31/2017 None Full Exam - General 1994 Musculoskeletal upper extremity Overall: upper arm non- tender, without crepitus or defects 12/31/2017 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 Full Exam - General 1994 Musculoskeletal gait and station Overall: normal gait 12/31/2017 None Full Exam - General 1994 Musculoskeletal gait and station Overall: normal station 12/31/2017 None Full Exam - General 1994 Musculoskeletal head and neck Overall: head atraumatic 12/31/2017 None Full Exam - General 1994 Integument inspection of skin Overall: few scattered moles, no gross abnormalities 12/31/2017 None Full Exam - General 1994 Neurologic cranial nerves Overall: crainial nerves 2 - 12 grossly intact 12/31/2017 None Full Exam - General 1994 Psychiatric orientation/consciousness Overall: oriented to person, place and time 12/31/2017 None Full Exam - General 1994 Psychiatric mood and affect Mood: depressed 12/31/2017 None Full Exam - General 1994 Psychiatric mood and affect Mood: anxious 12/31/2017 None Full Exam - General 1994 Psychiatric mood and affect Affect: mood congruent 12/31/2017 None Full Exam - General 1994 Constitutional general appearance Assistive Device: wheelchair 12/31/2017 None Full Exam - General 1994 Ears/Nose/Throat otoscopic exam Overall: tympanic membranes clear 12/31/2017 after cerumen removed left Full Exam - General 1994 Constitutional general appearance Overall: well developed 10/29/2017 None Full Exam - General 1994 Constitutional general appearance Overall: in no acute distress 10/29/2017 None Full Exam - General 1994 Constitutional general appearance Overall: well nourished 10/29/2017 None Full Exam - General 1994 Eyes conjunctiva /eyelids Overall: conjunctiva clear 10/29/2017 None Full Exam - General 1994 Ears/Nose/Throat otoscopic exam Overall: external auditory canals clear 10/29/2017 None Full Exam - General 1994 Ears/Nose/Throat otoscopic exam Overall: tympanic membranes clear 10/29/2017 None Full Exam - General 1994 Ears/Nose/Throat lips/teeth/gingiva Teeth: wears dentures 10/29/2017 [facility] Full Exam - General 1994 Respiratory respiratory effort/rhythm Overall: no retractions 10/29/2017 None Full Exam - General 1994 Respiratory respiratory effort/rhythm Overall: normal rate 10/29/2017 None Full Exam - General 1994 Cardiovascular extremities Overall: no clubbing 10/29/2017 None Full Exam - General 1994 Cardiovascular auscultation of heart Overall: regular rate 10/29/2017 None Full Exam - General 1994 Cardiovascular auscultation of heart Overall: normal heart sounds 10/29/2017 None Full Exam - General 1994 Cardiovascular auscultation of heart Systolic murmur: holosystolic 10/29/2017 None Full Exam - General 1994 Cardiovascular auscultation of heart Systolic murmur grade: II/ 10/29/2017 None Full Exam - General 1994 Abdomen abdominal exam Overall: no tenderness 10/29/2017 None Full Exam - General 1995 Lymphatic neck nodes Overall: anterior cervical chain benign 10/29/2017 None Full Exam - General 1994 Lymphatic neck nodes Overall: posterior cervical chain benign 10/29/2017 None Full Exam - General 1994 Musculoskeletal upper extremity Overall: upper arm non- tender, without crepitus or defects 10/29/2017 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 Full Exam - General 1994 Musculoskeletal gait and station Overall: normal gait 10/29/2017 None Full Exam - General 1994 Musculoskeletal gait and station Overall: normal station 10/29/2017 None Full Exam - General 1994 Musculoskeletal head and neck Overall: head atraumatic 10/29/2017 None Full Exam - General 1994 Neurologic cranial nerves Overall: crainial nerves 2 - 12 grossly intact 10/29/2017 None Full Exam - General 1994 Psychiatric orientation/consciousness Overall: oriented to person, place and time 10/29/2017 None Full Exam - General 1994 Psychiatric mood and affect Mood: depressed 10/29/2017 None Full Exam - General 1994 Psychiatric mood and affect Mood: anxious 10/29/2017 None Full Exam - General 1994 Psychiatric mood and affect Affect: mood congruent 10/29/2017 None Full Exam - General 1994 Ears/Nose/Throat oral cavity/pharynx/larynx Overall: oral mucosa clear 10/29/2017 None Full Exam - General 1994 Respiratory auscultation Diffuse: diminished 10/29/2017 None Full Exam - General 1994 Abdomen abdominal exam Overall: normal bowel sounds 10/29/2017 None Full Exam - General 1994 Constitutional [...] 1994 Ears/Nose/Throat lips/teeth/gingiva Teeth: wears dentures 05/28/2016 [facility] Full Exam - General 1994 Respiratory [...] No Procedures data Vital Signs Date Vital 12/31/2017 Blood Pressure 1: 138/68 Code : 8480-6 Heart Rate 1: 83 bpm Height: 5'5" SpO2: 98% Weight: 10/29/2017 Blood Pressure 1: 150/80 Code : 8480-6 Heart Rate 1: 96 bpm Height: SpO2: 98% Weight: 02/01/2017 Blood Pressure 1: 164/82 Code : 8480-6 BMI: 26.0 Code : 72160-2 Heart Rate 1 : 120 bpm Height: 5'5" SpO2: 95% Weight: 156 lbs 08/21/2016 Blood Pressure 1: 166/80 Code : 8480-6 BMI: 25.8 Code : 18686-5 Heart Rate 1 : 105 bpm Height: 5'5" SpO2: 95% Weight: 155 lbs 05/28/2016 Blood Pressure 1: 142/74 Code : 8480-6 BMI: 25.3 Code : 03325-5 Heart Rate 1 : 104 bpm Height: 5'5" SpO2: 96% Weight: 152 lbs 02/28/2016 Blood Pressure 1: 130/70 Code : 8480-6 BMI: 26.0 Code : 69143-6 Heart Rate 1 : 100 bpm Height: 5'5" SpO2: 96% Weight: 156 lbs 11/29/2015 Blood Pressure 1: 130/70 Code : 8480-6 BMI: 25.5 Code : 78640-9 Heart Rate 1 : 86 bpm Height: 5'5" SpO2: 96% Weight: 153 lbs Functional Status No Functional Status data History of Present Illness Symptom Name Status Result Effective Date Notes hypertension Onset and Resolution ongoing 12/31/2017 None hypertension Onset of Symptom during adulthood 12/31/2017 None hypertension Blood Pressure Values not checking blood pressure at home 12/31/2017 None hypertension Severity not consistently severe symptoms, the symptoms fluctuate from no symptoms to anxiety and headaches 12/31/2017 None hypertension Triggers stress 12/31/2017 None hypertension Alleviating Factors medication 12/31/2017 None anxiety Quality chronic 12/31/2017 None anxiety Onset and Resolution ongoing 12/31/2017 None anxiety Onset of Symptom years ago 12/31/2017 None anxiety Limitation on Activities moderately limits activities 12/31/2017 None anxiety Significant Family History anxiety disorder 12/31/2017 None anxiety Triggers no known associated factors 12/31/2017 None hypertension Quality chronic 12/31/2017 None hypertension Quality primary hypertension 12/31/2017 None anxiety Alleviating Factors medication 12/31/2017 None dyspnea Quality intermittent 10/29/2017 None dyspnea Onset and Resolution ongoing 10/29/2017 None dyspnea Limitation on Activities moderately limits activities 10/29/2017 None dyspnea Timing of Episodes at night 10/29/2017 None dyspnea Timing of Episodes during sleep 10/29/2017 None dyspnea Significant Family History cardiac disease 10/29/2017 None dyspnea Significant Family History pulmonary disease 10/29/2017 None dyspnea Pertinent Findings Denies edema 10/29/2017 None dyspnea Pertinent Findings Denies cyanosis 10/29/2017 None hypertension Quality intermittent 02/01/2017 None hypertension Onset [...] data Encounters Encounter Performer Location Codes Date [phone] EST. PATIENT, LEVEL IV Diagnosis: Essential (primary) hypertension[ICD10: I10] Diagnosis: Generalized anxiety disorder[ICD10: F41.1] Diagnosis: Major depressive disorder, recurrent, mild[ICD10: F33.0] Diagnosis: Unsteadiness on feet[ICD10: R26.81] Morenita Davenport MD, [facility] CPT-4: 56609 12/31/2017 [id number] EST. PATIENT, LEVEL IV Diagnosis: Essential (primary) hypertension[ICD10: I10] Diagnosis: Hypoxemia[ICD10: R09.02] Diagnosis: Sleep related hypoventilation in conditions classified elsewhere[ ICD10: G47.36] Tia Davenport MD, [facility] CPT-4: 16521 10/29/2017 ([id number]) 71903 EST. PATIENT, LEVEL IV Diagnosis: Essential (primary) hypertension[ICD10: I10] Diagnosis: Generalized anxiety disorder[ICD10: F41.1] Diagnosis: Major depressive disorder, recurrent, mild[ICD10: F33.0] Morenita Davenport MD , [facility] CPT-4: 78805 02/01/2017 ([id number]) 63766 EST. PATIENT, LEVEL IV Diagnosis: Essential (primary) hypertension[ICD10: I10] Diagnosis: Generalized anxiety disorder[ICD10: F41.1] Diagnosis: Major depressive disorder, recurrent, mild[ICD10: F33.0] Morenita Davenport MD , [facility] CPT-4: 31572 08/21/2016 ([id number]) 50706 EST. PATIENT, LEVEL IV Diagnosis: Generalized anxiety disorder[ICD10: F41.1] Diagnosis: Essential (primary) hypertension[ICD10: I10] Diagnosis: Gastro-esophageal reflux disease without esophagitis[ICD10: K21.9] Morenita Davenport MD, [facility] CPT-4: 38637 05/28/2016 ([id number]) 48515 EST. PATIENT, LEVEL IV Diagnosis: Generalized anxiety disorder[ICD10: F41.1] Diagnosis: Major depressive disorder, recurrent, mild[ICD10: F33.0] Diagnosis: Essential (primary) hypertension[ICD10: I10] Morenita Davenport MD, [facility] CPT-4: 40047 02/28/2016 ([id number]) OFFICE VISIT, NEW - LEVEL 4 Diagnosis: Essential (primary) hypertension[ICD10: I10] Diagnosis: Generalized anxiety disorder[ICD10: F41.1] Diagnosis: Mixed hyperlipidemia[ICD10: E78.2] Diagnosis: Major depressive disorder, recurrent, mild[ICD10: F33.0] [facility] CPT-4: 32168 11/29/2015 Plan of Care Planned Activity Notes Codes Status Date Appointment: [phone] (15 min) Moderate 04/04/2018 Appointment: Morenita Don WPtel[phone] (15 min) Moderate 03/06/2018 Appointment: Morenita Don WPtel: [address] [place], [place] [phone] (15 min) Moderate 01/31/2018 Visit Plan: Hypertension - well controlled - continue with current medications, continue with no added salt diet. Pt has been encouraged to exercise daily. The pt has been advised to call the office if there are any acute concerns about change in blood pressure readings at home. Depression/ anxiety - uncontrolled - Pt has been counseled about the diagnosis of depression , the potential causes, and risks associated with the diagnosis. The pt denies suicidal ideation, or plans. The patient has been counseled about treatment options, and understands the risks associated with treatment of depression, as well as the risks associated with NOT treating the depression. I believe the pt will benefit from medical intervention and an antidepressant has been appropriately prescribed for this patient. Gait instability-recommend PT to evaluate and treat--patient and family not interested at this time- continue with fall precautions (gait belt, walk, stand by assist). Patient and family ( daughter and grandson) verbalize understanding. 12/31/2017 Appointment: Morenita Don WPtel: [address] [place], [place] [phone] (30 min) Complex 12/31/2017 Patient Education: Patient Medication Summary Completed 12/31/2017 Visit Plan: Hypertension - well controlled - continue with current medications, continue with no added salt diet. Pt has been encouraged to exercise daily. The pt has been advised to call the office if there are any acute concerns about change in blood pressure readings at home. Nocturnal hypoxemia - will order over night pulse oximetry and oxygen as indicated - pt is to notify clinic with any changes, questions, or concerns. 10/29/2017 Visit Plan: Hypertension - well controlled - continue with current medications, continue with no added salt diet. Pt has been encouraged to exercise daily. The pt has been advised to call the office if there are any acute concerns about change in blood pressure readings at home. Nocturnal hypoxemia - will order over night pulse oximetry and oxygen as indicated - pt is to notify clinic with any changes, questions, or concerns. 10/29/2017 Appointment: [facility] [id number] (30 min) Complex 10/29/2017 Patient Education: Patient Medication Summary Completed 10/29/2017 Appointment: Arian Morenita WPtel: [address] [phone] (30 min) Complex 08/20/2017 Visit Plan: Hypertension - uncontrolled - the [...] pt is to call for acute concerns. Jsxaaef-ujymfxyuss-lebiewusu patient get rid of house guest-he is taking advantage of her and causing her undue stress and worry. Increase clonazepam to TID prn-follow up in 2 weeks. 02/01/2017 Appointment: [facility] [phone] (15 min) Moderate 02/01/2017 Patient Education: Patient [...] pt is to call for acute concerns. Ujlypgo-akfdumdizo-far well controlled-add deplin-continue lexapro Patient has not had recent labs-will send orders for fasting labs 08/21/2016 Appointment: Morenita Don WPtel: [address] [facility] [place] [address] (15 min) Moderate 08/21/2016 Patient Education: Patient [...] worse 05/28/2016 Appointment: Morenita Don WPtel: [address] [phone] (15 min) Moderate 05/28/2016 Patient Education: Patient [...] home. 02/28/2016 Appointment: Morenita Don WPtel: [address] [phone] (30 min) Complex 02/28/2016 Patient Education: Patient [...] to medications. 11/29/2015 Appointment: Morenita Don WPtel: [phone] New Patient 11/29/2015 Patient Education: Patient [...] do not resolve or if any worse . Hypertension - well controlled - continue with current medications, continue with no added salt diet. Pt has been encouraged to exercise daily. The pt has been advised to call the office if there are any acute concerns about change in blood pressure readings at home. Nocturnal hypoxemia - will order over night pulse oximetry and oxygen as indicated - pt is to notify clinic with any changes, questions, or concerns. . Hypertension - well controlled - continue with current medications, continue with no added salt diet. Pt has been encouraged to exercise daily. The pt has been advised to call the office if there are any acute concerns about change in blood pressure readings at home. Nocturnal hypoxemia - will order over night pulse oximetry and oxygen as indicated - pt is to notify clinic with any changes, questions, or concerns. Increase lisinopril to 20 mg per day for hypertension.- prescription sent to regular pharmacy Add Deplin to medication regimen to increase effectiveness of lexapro: Recommend [facility] [place] due to affordability. . Hypertension - uncontrolled [...] pt is to call for acute concerns. Cocltcw-elrbknhcaq-opc well controlled-add deplin-continue lexapro Patient has not had recent labs-will send orders for fasting labs citalopram 10mg daily flush left ear . Hypertension - well controlled - continue with current medications, continue with no added salt diet. Pt has been encouraged to exercise daily. The pt has been advised to call the office if there are any acute concerns about change in blood pressure readings at home. Depression/anxiety - uncontrolled - Pt has been counseled about the diagnosis of depression, the potential causes, and risks associated with the diagnosis. The pt denies suicidal ideation, or plans. The patient has been counseled about treatment options, and understands the risks associated with treatment of depression, as well as the risks associated with NOT treating the depression. I believe the pt will benefit from medical intervention and an antidepressant has been appropriately prescribed for this patient. Gait instability-recommend PT to evaluate and treat--patient and family not interested at this time- continue with fall precautions (gait belt, walk, stand by assist). Patient and family (daughter and grandson) verbalize understanding. increase clonazepam to three times daily start [...] pt is to call for acute concerns. Mappjir-istigeqoqq-awxufvohj patient get rid of house guest-he is taking advantage of her and causing her undue stress and worry. Increase clonazepam to TID prn-follow up in 2 weeks.
--- OUTSIDE RECORDS SUMMARY | 2018-04-13 07:44 | XMS REPORT | CCD ---
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 Name Role Phone PP Unavailable CCM Unavailable Summary Purpose Interface Exchange Insurance Providers Payer name Policy type / Coverage type Covered democrat ID Effective Begin Date Effective End Date [employer] Medicare Part B [id number] 2016 Unknown [employer] Medicare Part B [id number] Unknown Family history Father Diagnosis Age At Onset Myocardial infarction Unknown Mother Diagnosis Age At Onset Myocardial infarction Unknown Social History Social History Element Codes Description Effective Dates Marital status Unknown 11/29/2015 Number of children Unknown 2 son at 3hrs old 11/29/2015 Employment Unknown Retired 11/29/[address]: 330088215 Never smoker 11/29/[address]: 848435794 Never drinks alcohol 11/29/2015 Allergies, Adverse Reactions, [...] Start Date Stop Date Status Fill Instructions citalopram 20 mg tablet RxNorm: 546519 1 Tablet(s) PO daily 07/21/2018 Active metoprolol succinate ER 25 mg tablet,extended release 24 hr RxNorm: 671808 1 Tablet(s) PO daily 01/20/2018 10/16/2018 Active citalopram 10 mg tablet RxNorm: 475776 1 Tablet(s) PO daily 07/201701/22/2018 Inactive clonazepam 1 mg tablet RxNorm: 913063 1 Tablet(s) PO TID 201704/07/2018 Inactive omeprazole 20 mg capsule,delayed release RxNorm: 972603 Capsule(s) TAKE 1 CAPSULE BY MOUTH EVERY DAY 06/03/2017 02/27/2018 Inactive Mobic 15 mg tablet RxNorm: 259537 Tablet(s) 1 TABLET(S) PO DAILY 06/03/2017 02/27/2018 Inactive amlodipine 10 mg tablet RxNorm: 804547 Tablet(s) TAKE 1 TABLET BY MOUTH EVERY DAY 06/03/2017 02/27/2018 Inactive lisinopril 10 mg tablet RxNorm: 319874 Tablet(s) TAKE 1 TABLET BY MOUTH EVERY DAY 06/03/2017 02/27/2018 Inactive potassium chloride ER 10 mEq tablet,extended release RxNorm: 378667 Tablet(s) TAKE 2 TABLETS BY MOUTH EVERY DAY 06/03/2017 02/27/2018 Inactive simvastatin 20 mg tablet RxNorm: 489285 Tablet(s) 1 TABLET(S) PO QPM 06/03/2017 02/27/2018 Inactive metoprolol succinate ER 25 mg tablet,extended release 24 hr RxNorm: 789267 1 Tablet(s) PO daily 06/03/2017 01/19/2018 Inactive Lexapro 20 mg tablet RxNorm: 858705 1 Tablet(s) PO QPM 201712/30/2017 Inactive clonazepam 1 mg tablet RxNorm: 858781 1 Tablet(s) PO TID 201710/08/2017 Inactive Mobic 15 mg tablet RxNorm: 939559 1 TABLET(S) PO DAILY 201606/02/2017 Inactive lisinopril 10 mg tablet RxNorm: 921209 TAKE 1 TABLET BY MOUTH EVERY DAY 04/05/2017 06/02/2017 Inactive metoprolol succinate ER 25 mg tablet,extended release 24 hr RxNorm: 949134 1 Tablet(s) PO daily 02/01/2017 06/02/2017 Inactive Lexapro 20 mg tablet RxNorm: 754151 1 Tablet(s) PO QPM TAKE 1 TABLET BY MOUTH EVERY EVENING 02/01/2017 02/01/2017 Inactive Lexapro 20 mg tablet RxNorm: 267056 1 Tablet(s) PO QPM 1 TABLET(S) PO QPM TAKE 1 TABLET BY MOUTH EVERY EVENING 02/01/2017 06/02/2017 Inactive Patient requests 90 days supply clonazepam 1 mg tablet RxNorm: 910875 1 Tablet(s) PO TID 201606/02/2017 Inactive Lexapro 20 mg tablet RxNorm: 634855 1 Tablet(s) PO QPM 1 TABLET(S) PO QPM TAKE 1 TABLET BY MOUTH EVERY EVENING 02/01/2017 01/31/2017 Inactive Patient requests 90 days supply metoprolol succinate ER 25 mg tablet,extended release 24 hr RxNorm: 357721 1 Tablet(s) PO daily 02/01/2017 01/31/2017 Inactive amlodipine 10 mg tablet RxNorm: 981252 TAKE 1 TABLET BY MOUTH EVERY DAY 01/15/2017 06/02/2017 Inactive potassium chloride ER 10 mEq tablet,extended release RxNorm: 894700 TAKE 2 TABLETS BY MOUTH EVERY DAY 12/04/201607/2017 Inactive Lexapro 20 mg tablet RxNorm: 910055 TAKE 1 TABLET BY MOUTH EVERY EVENING 11/12/2016 01/31/2017 Inactive omeprazole 20 mg capsule,delayed release RxNorm: 435544 TAKE 1 CAPSULE BY MOUTH EVERY DAY 10/29/2016 10/28/2016 Inactive omeprazole 20 mg capsule,delayed release RxNorm: 196774 TAKE 1 CAPSULE BY MOUTH EVERY DAY 10/29/2016 06/02/2017 Inactive L-Methylfolate 15 mg tablet RxNorm: 1 Tablet(s) PO daily 10/0801/31/2017 Inactive clonazepam 1 mg tablet RxNorm: 098911 1 Tablet(s) PO BID 201601/31/2017 Inactive L-Methylfolate 15 mg tablet RxNorm: 1 Tablet(s) PO daily 08/2810/07/2016 Inactive lisinopril 20 mg tablet RxNorm: 730104 1 Tablet(s) PO daily 11/18/2016 Inactive lisinopril 20 mg tablet RxNorm: 708953 1 Tablet(s) PO daily 11/18/2016 Inactive Deplin (algal oil) 15 mg-90.314 mg capsule RxNorm: 1 Capsule(s) PO daily 08/21/2016 08/27/2016 Inactive Lexapro 20 mg tablet RxNorm: 282241 1 TABLET(S) PO QPM 201612/30/2017 Inactive simvastatin 20 mg tablet RxNorm: 535979 1 TABLET(S) PO QPM 11/19/2016 Inactive Patient requests 90 days supply simvastatin 20 mg tablet RxNorm: 105780 1 Tablet(s) PO QPM 05/23/2016 Inactive Lexapro 20 mg tablet RxNorm: 160372 1 Tablet(s) PO QPM 201502/28/2016 Inactive Lexapro 20 mg tablet RxNorm: 939410 1 Tablet(s) PO QPM 1 TABLET(S) PO QPM 02/28/2016 12/30/2017 Inactive Patient requests 90 days supply tramadol 50 mg tablet RxNorm: 674037 1 Tablet(s) PO Q6 as needed for pain 02/27/2016 04/11/2016 Inactive potassium chloride ER 10 mEq tablet,extended release RxNorm: 725166 TAKE 2 TABLETS BY MOUTH EVERY DAY 02/27/2016 Inactive citalopram 20 mg tablet RxNorm: 695587 1 Tablet(s) PO QAM 02/2602/27/2016 Inactive clonazepam 1 mg tablet RxNorm: 190148 1 Tablet(s) PO BID 201512/30/2017 Inactive omeprazole 20 mg capsule,delayed release RxNorm: 466137 TAKE 1 CAPSULE BY MOUTH EVERY DAY 02/13/2016 10/28/2016 Inactive Mobic 15 mg tablet RxNorm: 316921 1 Tablet(s) PO daily 201502/03/2017 Inactive Multiple Vitamins Daily tablet RxNorm: 1 Tablet(s) PO daily 12/28/2015 Inactive amlodipine 10 mg tablet RxNorm: 931543 1 Tablet(s) PO daily 05/201512/30/2017 Inactive simvastatin 20 mg tablet RxNorm: 478997 1 Tablet(s) PO QPM 05/201512/28/2015 Inactive clonazepam 1 mg tablet RxNorm: 638469 1 Tablet(s) PO Q12H 11/2812/30/2017 Inactive Colace 100 mg capsule RxNorm: 2441876 1 Capsule(s) PO daily 05/201511/29/2015 Inactive citalopram 20 mg tablet RxNorm: 194892 1 Tablet(s) PO QAM 11/2812/28/2015 Inactive Mobic 15 mg tablet RxNorm: 780092 1 Tablet(s) PO daily 201512/30/2017 Inactive potassium chloride ER 10 mEq tablet,extended release RxNorm: 467026 2 Tablet(s) PO daily 20meq daily 11/29/20152015 Inactive lisinopril 10 mg tablet RxNorm: 262218 1 Tablet(s) PO daily 05/201512/30/2017 Inactive Coricidin HBP 10 mg-200 mg capsule RxNorm: 2306547 1 Capsule(s) PO PRN No Start Date Active cranberry 400 mg capsule RxNorm: 198333 1 Capsule(s) PO daily No Start Date Active Vitamin D3 1,000 unit tablet RxNorm: 535268 1 Tablet(s) PO daily No Start Date Active docusate sodium 100 mg tablet RxNorm: 7448918 1 Tablet(s) PO daily No Start Date Active Mobic 15 mg tablet RxNorm: 542872 1 Tablet(s) PO daily No Start Date 02/09/2016 Inactive Vitamin D3 1,000 unit tablet RxNorm: 771527 1 Tablet(s) PO daily No Start Date 06/02/2017 Inactive omeprazole 20 mg tablet,delayed release RxNorm: 599283 1 Tablet(s) PO daily No Start Date 06/02/2017 Inactive potassium chloride ER 10 mEq tablet,extended release RxNorm: 953192 2 Tablet(s) PO daily No Start Date 06/02/2017 Inactive clonazepam 1 mg tablet RxNorm: 873955 1 Tablet(s) PO BID No Start Date 02/26/2016 Inactive Aleve PM 220 mg-25 mg tablet RxNorm: 4712661 1 Tablet(s) PO daily No Start Date 05/27/2016 Inactive amlodipine 10 mg tablet RxNorm: 633242 1 Tablet(s) PO daily No Start Date 01/14/2017 Inactive lisinopril 10 mg tablet RxNorm: 760448 1 Tablet(s) PO daily No Start Date 08/20/2016 Inactive tramadol 50 mg tablet RxNorm: 725785 1 Tablet(s) PO Q6 PRN No Start Date 02/26/2016 Inactive Ultram 50 mg tablet RxNorm: 081428 1 Tablet(s) PO Q6 as needed No Start Date 11/28/2015 Inactive simvastatin 20 mg tablet RxNorm: 247745 1 Tablet(s) PO QHS No Start Date 06/02/2017 Inactive citalopram 20 mg tablet RxNorm: 375494 1 Tablet(s) PO daily No Start Date 02/26/2016 Inactive lisinopril 10 mg tablet RxNorm: 123759 1 Tablet(s) PO daily No Start Date 04/04/2017 Inactive omeprazole 20 mg capsule,delayed release RxNorm: 141501 1 Capsule(s) PO daily No Start Date [...] Ord30 C/HDL 2.8 Ratio 10/09/2016 Comp Metabolic Vnf753 NA 136 mEq/L 10/09/2016 Comp Metabolic Mss539 K 4.9 mEq/L 10/09/2016 Comp Metabolic Mhq779 CL 97 mEq/L 10/09/2016 Comp Metabolic Ucj468 CO2 30.0 mEq/L 10/09/2016 Comp Metabolic Odn403 ANION GAP 14 10/09/2016 Comp Metabolic Jcz097 GLUCOSE 66 mg/dL 10/09/2016 Comp Metabolic Fmc172 Creat 0.9 mg/dL 10/09/2016 Comp Metabolic Tug550 eGFR 64 ml/min/1.73m2 10/09/2016 Comp Metabolic Nnn427 BUN 13 mg/dL 10/09/2016 Comp Metabolic Qkh674 B/C Ratio 14.6 Ratio 10/09/2016 Comp Metabolic Ydn161 CALCIUM 10.0 mg/dL 10/09/2016 Comp Metabolic Gsg180 ALK PHOS 59 U/L 10/09/2016 Comp Metabolic Uje834 AST(SGOT) 20 U/L 10/09/2016 Comp Metabolic Yvz022 ALT(SGPT) 9 U/L 10/09/2016 Comp Metabolic Uff128 BILI T 0.4 mg/dL 10/09/2016 Comp Metabolic Jhv894 ALBUMIN 4.1 g/dL 10/09/2016 Comp Metabolic Qoq196 TPRO 7.1 g/dL 10/09/2016 Comp Metabolic Stp567 GLOB 3.0 g/dL 10/09/2016 Comp Metabolic Wgv287 A/G Ratio 1.4 Ratio 10/09/2016 Comp Metabolic Efe474 Osmo 270 mOsmo 10/09/2016 Tsh Ord6 hTSH [...] 31.2 pg 10/09/2016 Cbc With Differential Ord2 [place]% 13.7 % 10/09/2016 Cbc With Differential Ord2 [...] 1.49 K/ul 10/09/2016 Cbc With Differential Ord2 [place] ABS# 0.6 K/ul 10/09/2016 Cbc With Differential [...] 1994 Ears/Nose/Throat lips/teeth/gingiva Teeth: wears dentures 12/31/2017 [facility] Full Exam - General 1994 [...] 1994 Ears/Nose/Throat lips/teeth/gingiva Teeth: wears dentures 10/29/2017 [facility] Full Exam - General 1994 Respiratory respiratory [...] tenderness 10/29/2017 None Full Exam - General 1994 [...] Code : 8480-6 BMI: 26.0 Code : 79938-9 Heart Rate 1 : 120 bpm Height: 5'5" SpO2: 95% Weight: 156 lbs 08/21/2016 Blood Pressure 1: 166/80 Code : 8480-6 BMI: 25.8 Code : 53452-5 Heart Rate 1 : 105 bpm Height: 5'5" SpO2: 95% Weight: 155 lbs 05/28/2016 Blood Pressure 1: 142/74 Code : 8480-6 BMI: 25.3 Code : 72573-6 Heart Rate 1 : 104 bpm Height: 5'5" SpO2: 96% Weight: 152 lbs 02/28/2016 Blood Pressure 1: 130/70 Code : 8480-6 BMI: 26.0 Code : 52228-9 Heart Rate 1 : 100 bpm Height: 5'5" SpO2: 96% Weight: 156 lbs 11/29/2015 Blood Pressure 1: 130/70 Code : 8480-6 BMI: 25.5 Code : 59098-0 Heart Rate 1 : 86 bpm Height: [...] data Encounters Encounter Performer Location Codes Date EST. PATIENT, LEVEL IV Diagnosis: Essential (primary) hypertension[ICD10: I10] Diagnosis: Generalized anxiety disorder[ICD10: F41.1] Diagnosis: Major depressive disorder, recurrent, mild[ICD10: F33.0] Diagnosis: Unsteadiness on feet[ICD10: R26.81] Morenita Davenport MD, [facility] CPT-4: 08415 12/31/2017 [id number] EST. PATIENT, LEVEL IV Diagnosis: Essential (primary) hypertension[ICD10: I10] Diagnosis: Hypoxemia[ICD10: R09.02] Diagnosis: Sleep related hypoventilation in conditions classified elsewhere[ ICD10: G47.36] Tia Davenport MD, [facility] CPT-4: 93242 10/29/2017 ([id number] EST. PATIENT, LEVEL IV Diagnosis: Essential (primary) hypertension[ICD10: I10] Diagnosis: Generalized anxiety disorder[ICD10: F41.1] Diagnosis: Major depressive disorder, recurrent, mild[ICD10: F33.0] Morenita Davenport MD , [facility] CPT-4: 94290 02/01/2017 ([id number]) 00851 EST. PATIENT, LEVEL IV Diagnosis: Essential (primary) hypertension[ICD10: I10] Diagnosis: Generalized anxiety disorder[ICD10: F41.1] Diagnosis: Major depressive disorder, recurrent, mild[ICD10: F33.0] Morenita Davenport MD , [facility] CPT-4: 22229 08/21/2016 ([id number]) [id number] EST. PATIENT, LEVEL IV Diagnosis: Generalized anxiety disorder[ICD10: F41.1] Diagnosis: Essential (primary) hypertension[ICD10: I10] Diagnosis: Gastro-esophageal reflux disease without esophagitis[ICD10: K21.9] Morenita Davenport MD, [facility] CPT-4: 37001 05/28/2016 ([id number]) 23911 EST. PATIENT, LEVEL IV Diagnosis: Generalized anxiety disorder[ICD10: F41.1] Diagnosis: Major depressive disorder, recurrent, mild[ICD10: F33.0] Diagnosis: Essential (primary) hypertension[ICD10: I10] Morenita Davenport MD, [facility] CPT-4: 81905 02/28/2016 ([id number]) OFFICE VISIT, NEW - LEVEL 4 Diagnosis: Essential (primary) hypertension[ICD10: I10] Diagnosis: Generalized anxiety disorder[ICD10: F41.1] Diagnosis: Mixed hyperlipidemia[ICD10: E78.2] Diagnosis: Major depressive disorder, recurrent, mild[ICD10: F33.0] Morenita Davenport MD , [facility] CPT-4: 13153 11/29/2015 Plan of Care Planned Activity Notes Codes Status Date Appointment: Morenita Don WPtel: [phone] [phone] [place] (15 min) Moderate 04/04/2018 [phone] [phone] ([facility] min) Moderate 03/06/2018 [facility]ment[facility] [phone] [phone] (15 min) Moderate 01/31/2018 Visit Plan: Hypertension [...] verbalize understanding. 12/31/2017 Appointment: [facility] [phone] [phone] (30 min) Complex 12/31/2017 Patient Education: Patient [...] concerns. 10/29/2017 Appointment: [facility] [phone] [phone] (30 min) Complex 10/29/2017 Patient Education: Patient Medication Summary Completed 10/29/2017 Appointment: Morenita Don WPtel: [phone] (30 min) Complex 08/20/2017 Visit Plan: Hypertension [...] pt is to call for acute concerns. Gmgxpro-ryhssqegvl-hqitoszkf patient get rid of house guest-he is taking advantage of her and causing her undue stress and worry. Increase clonazepam to TID prn-follow up in 2 weeks. 02/01/2017 Appointment: Morenita Don WPtel: [phone] (15 min) Moderate 02/01/2017 Patient Education: Patient [...] pt is to call for acute concerns. Plxxadh-lvkqdoxajm-dya well controlled-add deplin-continue lexapro Patient has not had recent labs-will send orders for fasting labs 08/21/2016 Appointment: Morenita Don WPtel: [facility] [place] [phone] (15 min) Moderate 08/21/2016 Patient Education: Patient [...] any worse 05/28/2016 Appointment: Morenita Don WPtel: [phone] (15 min) Moderate 05/28/2016 Patient Education: [...] at home. 02/28/2016 Appointment: Morenita Don WPtel: [phone] (30 min) Complex 02/28/2016 Patient Education: Patient [...] normal liver response to medications. 11/29/2015 Appointment: Arian Morenita WPtel[phone] [facility] Patient 11/29/2015 Patient Education: Patient Medication Summary Completed 11/29/2015 Instructions Comment increase clonazepam to three times daily start [...] pt is to call for acute concerns. Hxxcecl-sienlncimu-sxkrjabov patient get rid of house guest-he is taking advantage of her and causing her undue stress and worry. Increase clonazepam to TID prn-follow up in 2 weeks. STOP CITALOPRAM START LEXAPRO (ESCITALOPRAM) 20MG EVERY [...] change in blood pressure readings at home. . Hypertension - well controlled - continue [...] clinic with any changes, questions, or concerns. INCREASE OMEPRAZOLE TO TWICE DAILY-MORNING AND BEDTIME [...] increase effectiveness of lexapro: Recommend filling at [facility] in [place] due to affordability. . Hypertension - uncontrolled [...] pt is to call for acute concerns. Sjptemm-tucuxzewpf-mwr well controlled-add deplin-continue lexapro Patient has not [...] and family (daughter and grandson) verbalize understanding. . Hypertension - well controlled - continue [...] clinic with any changes, questions, or concerns. RECOMMEND MEDICAL ALERT BRACELET . Hypertension - [...]
--- OUTSIDE RECORDS SUMMARY | 2018-04-13 07:49 | XMS REPORT | Continuity of Care Document ---
Author Author [facility] Organization [facility] Address Unknown Phone Unavailable Allergies Active Description Code Type Severity Reaction Onset Reported/Identified Relationship to Patient Clinical Status Yes Penicillins [id number] Drug Allergy Severe EDEMA 11/25/2010 Medications There [...] FALL ON STAIR/STEP NEC 01/22/2013 MOSES MCKEON MD Ot E935.2 ADV EFF OPIATES 01/29/2014 ARIAN [...] ARIAN SALINAS MD Ot E46 01/11/2015 ARIAN SALIANS MD Ot E83.52 01/11/2015 ARIAN SALINAS MD [...] CURRY DO Ot E78.5 HYPERLIPIDEMIA, UNSPECIFIED 10/24/2015 MERT CURRY DOI Ot F32.9 MAJOR DEPRESSIVE DISORDER, SINGLE EPISOD 10/24/2015 NELSON CURRY DO Ot F41.9 ANXIETY DISORDER, UNSPECIFIED 10/24/2015 MERT CURRY DOI Ot I10 ESSENTIAL (PRIMARY) HYPERTENSION 10/24/2015 MERT CURRY DOI Ot I63.9 CEREBRAL INFARCTION, UNSPECIFIED 10/24/2015 MERT CURRY DOI Ot K21.9 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 10/24/2015 MERT CURRY DOI Ot R13.10 DYSPHAGIA, UNSPECIFIED 10/24/2015 PATRICIO DELGADILLO NELSON Ot R25.9 UNSPECIFIED ABNORMAL INVOLUNTARY MOVEMEN 10/24/2015 PATRICIO DELGADILLO NELSON Ot R41.0 DISORIENTATION, UNSPECIFIED 10/24/2015 MERT CURRY DOI Ot 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 10/24/2015 PATRICIO DELGADILLO NELSON Ot R56.9 UNSPECIFIED CONVULSIONS 10/24/2015 NELSON CURRY DO Ot Z86.718 PERSONAL HISTORY OF OTHER VENOUS THROMBO 10/24/2015 NELSON CURRY DO Ot Z91.81 HISTORY OF FALLING 10/29/2016 ARIAN SALINAS MD Ot V58.61 ANTICOAGULANTS,LT,CURRENT USE 10/29/2016 ARIAN SALINAS MD Ot V58.83 ENCOUNTER FOR THERAPEUTIC DRUG MONITORIN 10/29/2016 ARIAN SALINAS MD Ot V54.13 AFTERCARE HEALING TRAUMATIC FX HIP 10/29/2016 ARIAN SALINAS MD Ot V58.61 ANTICOAGULANTS,LT,CURRENT USE 10/29/2016 GEORGE TEIXEIRA SEL[employer] DEFENSE INSTRUCTOR Ot D64.9 ANEMIA, UNSPECIFIED 10/29/2016 GEORGE TEIXEIRA SEL[employer] DEFENSE INSTRUCTOR Ot D72.819 DECREASED WHITE BLOOD CELL COUNT, UNSPEC 10/30/2016 GEORGE TEIXEIRA [employer]EL[employer] DEFENSE INSTRUCTOR Ot D64.9 ANEMIA, UNSPECIFIED 10/30/2016 GEORGE TEIXEIRA SELF DEFENSE INSTRUCTOR Ot D72.819 DECREASED WHITE BLOOD CELL COUNT, UNSPEC 11/23/2016 GEORGE TEIXEIRAP Ot D64.9 ANEMIA, UNSPECIFIED 11/23/2016 GEORGE TEIXEIRA [employer] DEFENSE INSTRUCTOR Ot D72.819 DECREASED WHITE BLOOD CELL COUNT, [...] MD Ot V58.61 ANTICOAGULANTS,LT,CURRENT USE 08/09/2017 GEORGE TEIXEIRA SEL[employer] DEFENSE INSTRUCTOR Ot D64.9 ANEMIA, UNSPECIFIED 08/09/2017 GEORGE TEIXEIRA SEL[employer] DEFENSE INSTRUCTOR Ot D72.819 DECREASED WHITE BLOOD CELL COUNT, UNSPEC 08/09/2017 ARIAN SALINAS MD Ot V58.61 ANTICOAGULANTS,LT,CURRENT USE 08/09/2017 ARIAN SALINAS MD Ot V58.83 ENCOUNTER FOR THERAPEUTIC DRUG MONITORIN 08/09/2017 ARIAN SALINAS MD Ot V54.13 AFTERCARE HEALING TRAUMATIC FX HIP 08/09/2017 ARIAN SALINAS MD Ot V58.61 ANTICOAGULANTS,LT,CURRENT USE 08/09/2017 GEORGE TEIXEIRA SEL[employer] DEFENSE INSTRUCTOR Ot D64.9 ANEMIA, UNSPECIFIED 08/09/2017 GEORGE TEIXEIRA SELF DEFENSE INSTRUCTOR Ot D72.819 DECREASED WHITE BLOOD CELL COUNT, UNSPEC 08/13/2017 CHARLINE CABA, SHELLIE Donato Ot E78.00 PURE HYPERCHOLESTEROLEMIA, UNSPECIFIED 08/13/2017 CHARLINE CABA, SHELLIE Donato Ot E87.6 HYPOKALEMIA 08/13/2017 CHARLINE CABA, SHELLIE Donato Ot F32.9 MAJOR DEPRESSIVE DISORDER, SINGLE EPISOD 08/13/2017 CHARLINE CABA, SHELLIE Donato Ot F41.9 ANXIETY DISORDER, UNSPECIFIED 08/13/2017 CHARLINE CABA, SHELLIE Donato Ot H91.93 UNSPECIFIED HEARING LOSS, BILATERAL 08/13/2017 CHARLINE CABA, SHELLIE Donato Ot I10 ESSENTIAL (PRIMARY) HYPERTENSION 08/13/2017 CHARLINE CABA, SHELLIE Donato Ot J18.9 PNEUMONIA, UNSPECIFIED ORGANISM 08/13/2017 CHARLINE CABA, SHELLIE Donato Ot M17.11 UNILATERAL PRIMARY OSTEOARTHRITIS, RIGHT 08/13/2017 CHARLINE CABA, SHELLIE Donato Ot M19.041 PRIMARY OSTEOARTHRITIS, RIGHT HAND 08/13/2017 CHARLINE CABA, SHELLIE Donato Ot M23.41 LOOSE BODY IN KNEE, RIGHT KNEE 08/13/2017 CHARLINE CABA, SHELLIE Donato Ot 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 08/13/2017 SHELLIE OLIVIER MD Ot R09.02 HYPOXEMIA 08/13/2017 SHELLIE OLIVIER MD Ot R41.0 DISORIENTATION, UNSPECIFIED 08/13/2017 SHELLIE OLIVIER MD Ot S00.03XA CONTUSION OF SCALP, INITIAL ENCOUNTER 08/13/2017 SHELLIE OLIVIER MD Ot S00.83XA CONTUSION OF OTHER PART OF HEAD, INITIAL 08/13/2017 SHELLIE OLIVIER MD Ot S53.104S UNSPECIFIED DISLOCATION OF RIGHT ULNOHUM 08/13/2017 SHELLIE OLIVIER MD Ot S60.221A CONTUSION OF RIGHT HAND, INITIAL ENCOUNT 08/13/2017 SHELLIE OLIVIER MD Ot S70.01XA CONTUSION OF RIGHT HIP, INITIAL ENCOUNTE 08/13/2017 SHELLIE OLIVIER MD Ot S80.01XA CONTUSION OF RIGHT KNEE, INITIAL ENCOUNT 08/13/2017 SHELLIE OLIVIER MD Ot W01.190A FALL SAME LEV FROM SLIP/TRIP W STRIKE AG 08/13/2017 SHELLIE OLIVIER MD Ot W18.39XA OTHER FALL ON SAME LEVEL, INITIAL ENCOUN 08/13/2017 SHELLIE OLIVIER MD Ot Y92.000 KITCH[facility] OF [facility] NON-INSTIT[facility] (PRIVATE) R 08/13/2017 SHELLIE OLIVIER MD Ot Y92.003 [facility] OF [facility] (PRIVATE) R 08/13/2017 SHELLIE OLIVIER MD Ot Z66 DO NOT RESUSCITATE 08/13/2017 SHELLIE OLIVIER MD Ot Z86.718 PERSONAL HISTORY OF OTHER VENOUS THROMBO 08/13/2017 SHELLIE OLIVIER MD Ot Z96.652 PRESENCE OF LEFT ARTIFICIAL KNEE JOINT 08/13/2017 SHELLIE OLIVIER MD Ot Z97.4 PRESENCE OF EXTERNAL HEARING-AID 08/13/2017 SHELLIE OLIVIER MD Ot E78.00 PURE HYPERCHOLESTEROLEMIA, UNSPECIFIED 08/13/2017 SHELLIE OLIVIER MD Ot E87.6 HYPOKALEMIA 08/13/2017 SHELLIE OLIVIER MD Ot F32.9 MAJOR DEPRESSIVE DISORDER, SINGLE EPISOD 08/13/2017 SHELLIE OLIVIER MD Ot F41.9 ANXIETY DISORDER, UNSPECIFIED 08/13/2017 SHELLIE OLIVIER MD Ot H91.93 UNSPECIFIED HEARING LOSS, BILATERAL 08/13/2017 SHELLIE OLIVIER MD Ot I10 ESSENTIAL (PRIMARY) HYPERTENSION 08/13/2017 SHELLIE OLIVIER MD Ot J18.9 PNEUMONIA, UNSPECIFIED ORGANISM 08/13/2017 SHELLIE OLIVIER MD Ot M17.11 UNILATERAL PRIMARY OSTEOARTHRITIS, RIGHT 08/13/2017 SHELLIE OLIVIER MD Ot M19.041 PRIMARY OSTEOARTHRITIS, RIGHT HAND 08/13/2017 SHELLIE OLIVIER MD Ot M23.41 LOOSE BODY IN KNEE, RIGHT KNEE 08/13/2017 SHELLIE OLIVIER MD Ot 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 08/13/2017 SHELLIE OLIVIER MD Ot R09.02 HYPOXEMIA 08/13/2017 SHELLIE OLIVIER MD Ot R41.0 DISORIENTATION, UNSPECIFIED 08/13/2017 SHELLIE OLIVIER MD Ot S00.03XA CONTUSION OF SCALP, INITIAL ENCOUNTER 08/13/2017 SHELLIE OLIVIER MD Ot S00.83XA CONTUSION OF OTHER PART OF HEAD, INITIAL 08/13/2017 SHELLIE OLIVIER MD Ot S53.104S UNSPECIFIED DISLOCATION OF RIGHT ULNOHUM 08/13/2017 SHELLIE OLIVIER MD Ot S60.221A CONTUSION OF RIGHT HAND, INITIAL ENCOUNT 08/13/2017 SHELLIE OLIVIER MD Ot S70.01XA CONTUSION OF RIGHT HIP, INITIAL ENCOUNTE 08/13/2017 SHELLIE OLIVIER MD, Ot S80.01XA CONTUSION OF RIGHT KNEE, INITIAL ENCOUNT 08/13/2017 SHELLIE OLIVIER MD Ot W01.190A FALL SAME LEV FROM SLIP/TRIP W STRIKE AG 08/13/2017 SHELLIE OLIVIER MD Ot W18.39XA OTHER FALL ON SAME LEVEL, INITIAL ENCOUN 08/13/2017 SHELLIE OLIVIER MD Ot Y92.[address] [facility] (PRIVATE) R 08/13/2017 SHELLIE OLIVIER MD, Ot Y92.[address] [facility] (PRIVATE) R 08/13/2017 SHELLIE OLIVIER MD Ot Z66 DO NOT RESUSCITATE 08/13/2017 SHELLIE OLIVIER MD, Ot Z86.718 PERSONAL HISTORY OF OTHER VENOUS THROMBO 08/13/2017 SHELLIE OLIVIER MD Ot Z96.652 PRESENCE OF LEFT ARTIFICIAL KNEE JOINT 08/13/2017 SHELLIE OLIVIER MD Ot Z97.4 PRESENCE OF EXTERNAL HEARING-AID Procedures Code Description Performed By Performed On [...] 90 Blood reticulocytes/100 erythrocytes 0.76 % 0.50-2.40 Complete urinalysis with reflex to culture - 08/08/17 21:14 Urine color determination YELLOW NRG Urine clarity determination CLEAR NRG Urine pH measurement by test strip 8 5-9 Specific gravity of urine by test strip 1.015 1.016- 1.022 Urine protein assay by test strip, semi-quantitative 2+ NEGATIVE Urine glucose detection by automated test strip NEGATIVE NEGATIVE Erythrocytes detection in urine sediment by light microscopy 1+ NEGATIVE Urine ketones detection by automated test strip 2+ NEGATIVE Urine nitrite detection by test strip NEGATIVE NEGATIVE Urine total bilirubin detection by test strip NEGATIVE NEGATIVE Urine urobilinogen measurement by automated test strip (mass/volume) 4 mg/dL NORMAL Urine leukocyte esterase detection by dipstick NEGATIVE NEGATIVE Automated urine sediment erythrocyte count by microscopy (number/high power field) [HPF] NRG Automated urine sediment leukocyte count by microscopy (number/high power field ) [HPF] NRG Bacteria detection in urine sediment by light microscopy NEGATIVE NRG Crystals detection in urine sediment by light microscopy NONE NRG Casts detection in urine sediment by light microscopy NONE NRG Mucus detection in urine sediment by light microscopy NEGATIVE NRG Complete urinalysis with reflex to culture NO NRG Arterial blood gas measurement - 08/08/17 21:45 Blood pCO2 43 mm[Hg] 35-45 Blood pO2 86 mm[Hg] 79-93 Arterial blood bicarbonate measurement (moles/volume) 30 mmol/L 23-27 Arterial blood base excess by calculation 5.7 mmol/L -2.5 -2.5 Arterial blood oxygen saturation measurement 97 % 94-100 * Inhaled oxygen flow rate 4L NRG Arterial blood pH measurement with patient temperature correction 7.45 7.37-7.43 Arterial blood carbon dioxide, total measurement (moles/volume) 30.8 mmol/L 21.0-31.0 Body site LT RAD NRG Assessment of wrist artery patency prior to arterial puncture YES- POS NRG Setting of ventilation mode NO NRG Measurement of body temperature 100.1 NRG Bacterial blood culture - 08/08/17 21:53 Bacterial blood culture NG NRG Complete blood count (CBC) with automated white blood cell (WBC) differential - 08/08/17 22:00 Blood leukocytes automated count (number/volume) 8.7 10*3/uL 4.3-11.0 Blood erythrocytes automated count (number/volume) 4.90 10*6/uL 4.35-5.85 Venous blood hemoglobin measurement (mass/volume) 14.8 g/dL 11.5-16.0 Blood hematocrit (volume fraction) 44 % 35-52 Automated erythrocyte mean corpuscular volume 89 [foz_us] 80-99 Automated erythrocyte mean corpuscular hemoglobin (mass per erythrocyte) 30 pg 25-34 Automated erythrocyte mean corpuscular hemoglobin concentration measurement ( mass/volume) 34 g/dL 32-36 Automated erythrocyte distribution width ratio 14.4 % 10.0-14.5 Automated blood platelet count (count/volume) 197 10*3/uL 130-400 Automated blood platelet mean volume measurement 10.9 [foz_us] 7.4-10.4 Automated blood neutrophils/100 leukocytes 79 % 42-75 Automated blood lymphocytes/100 leukocytes 11 % 12-44 Blood monocytes/100 leukocytes 9 % 0-12 Automated blood eosinophils/100 leukocytes 1 % 0-10 Automated blood basophils/100 leukocytes 0 % 0-10 Blood neutrophils automated count (number/volume) 6.9 10*3 1.8-7.8 Blood lymphocytes automated count (number/volume) 0.9 10*3 1.0-4.0 Blood monocytes automated count (number/volume) 0.8 10*3 0.0-1.0 Automated eosinophil count 0.1 10*3/uL 0.0-0.3 Automated blood basophil count (count/volume) 0.0 10*3/uL 0.0-0.1 PT panel in platelet poor plasma by coagulation assay - 08/08/17 22:00 Prothrombin time (PT) in platelet poor plasma by coagulation assay 14.0 s 12.2-14.7 INR in platelet poor plasma or blood by coagulation assay 1.1 0.8-1.4 Activated partial thromboplastin time (aPTT) in platelet poor plasma bycoagulation assay - 08/08/17 22:00 Activated partial thromboplastin time (aPTT) in platelet poor plasma bycoagulation assay 25 s 24-35 Blood lactic acid measurement (moles/volume) - 08/08/17 22:00 Blood lactic acid measurement (moles/volume) 1.34 mmol/L 0.50-2.00 Influenza virus A and B antigen detection - 08/08/17 22:14 FLU RESULT NEGATIVE FOR INFLUENZA A AND B ANTIGENS BY [facility] [employer] [facility] Comprehensive metabolic panel - 08/08/17 22:35 Serum or plasma sodium measurement (moles/volume) 135 mmol/L 135-145 Serum or plasma potassium measurement (moles/volume) 3.9 mmol/L 3.6-5.0 Serum or plasma chloride measurement (moles/volume) 99 mmol/L 98-107 Carbon dioxide 26 mmol/L 21-32 Serum or plasma anion gap determination (moles/volume) 10 mmol/L 5-14 Serum or plasma urea nitrogen measurement (mass/volume) 14 mg/dL 7-18 Serum or plasma creatinine measurement (mass/volume) 0.80 mg/dL 0.60-1.30 Serum or plasma urea nitrogen/creatinine mass ratio 18 NRG Serum or plasma creatinine measurement with calculation of estimated glomerular filtration rate > NRG Serum or plasma glucose measurement (mass/volume) 118 mg/dL 70-105 Serum or plasma calcium measurement (mass/volume) 9.4 mg/dL 8.5-10.1 Serum or plasma total bilirubin measurement (mass/volume) 1.1 mg/dL 0.1-1.0 Serum or plasma alkaline phosphatase measurement (enzymatic activity/volume) 70 U/L 40-136 Serum or plasma aspartate aminotransferase measurement (enzymatic activity/ volume) 19 U/L 5-34 Serum or plasma alanine aminotransferase measurement (enzymatic activity/volume ) 10 U/L 0-55 Serum or plasma protein measurement (mass/volume) 6.7 g/dL 6.4-8.2 Serum or plasma albumin measurement (mass/volume) 3.6 g/dL 3.2-4.5 Magnesium - 08/08/17 22:35 Magnesium 1.6 mg/dL 1.8-2.4 Complete blood count (CBC) with automated white blood cell (WBC) differential - 08/09/17 07:51 Blood leukocytes automated count (number/volume) 7.3 10*3/uL 4.3-11.0 Blood erythrocytes automated count (number/volume) 4.50 10*6/uL 4.35-5.85 Venous blood hemoglobin measurement (mass/volume) 13.7 g/dL 11.5-16.0 Blood hematocrit (volume fraction) 41 % 35-52 Automated erythrocyte mean corpuscular volume 91 [foz_us] 80-99 Automated erythrocyte mean corpuscular hemoglobin (mass per erythrocyte) 30 pg 25-34 Automated erythrocyte mean corpuscular hemoglobin concentration measurement ( mass/volume) 34 g/dL 32-36 Automated erythrocyte distribution width ratio 13.9 % 10.0-14.5 Automated blood platelet count (count/volume) 162 10*3/uL 130-400 Automated blood platelet mean volume measurement 10.7 [foz_us] 7.4-10.4 Automated blood neutrophils/100 leukocytes 71 % 42-75 Automated blood lymphocytes/100 leukocytes 16 % 12-44 Blood monocytes/100 leukocytes 9 % 0-12 Automated blood eosinophils/100 leukocytes 4 % 0-10 Automated blood basophils/100 leukocytes 0 % 0-10 Blood neutrophils automated count (number/volume) 5.2 10*3 1.8-7.8 Blood lymphocytes automated count (number/volume) 1.2 10*3 1.0-4.0 Blood monocytes automated count (number/volume) 0.6 10*3 0.0-1.0 Automated eosinophil count 0.3 10*3/uL 0.0-0.3 Automated blood basophil count (count/volume) 0.0 10*3/uL 0.0-0.1 Comprehensive metabolic panel - 08/09/17 07:51 Serum or plasma sodium measurement (moles/volume) 135 mmol/L 135-145 Serum or plasma potassium measurement (moles/volume) 3.7 mmol/L 3.6-5.0 Serum or plasma chloride measurement (moles/volume) 102 mmol/L 98-107 Carbon dioxide 25 mmol/L 21-32 Serum or plasma anion gap determination (moles/volume) 8 mmol/L 5-14 Serum or plasma urea nitrogen measurement (mass/volume) 12 mg/dL 7-18 Serum or plasma creatinine measurement (mass/volume) 0.74 mg/dL 0.60-1.30 Serum or plasma urea nitrogen/creatinine mass ratio 16 NRG Serum or plasma creatinine measurement with calculation of estimated glomerular filtration rate > NRG Serum or plasma glucose measurement (mass/volume) 116 mg/dL 70-105 Serum or plasma calcium measurement (mass/volume) 9.4 mg/dL 8.5-10.1 Serum or plasma total bilirubin measurement (mass/volume) 0.9 mg/dL 0.1-1.0 Serum or plasma alkaline phosphatase measurement (enzymatic activity/volume) 62 U/L 40-136 Serum or plasma aspartate aminotransferase measurement (enzymatic activity/ volume) 18 U/L 5-34 Serum or plasma alanine aminotransferase measurement (enzymatic activity/volume ) 10 U/L 0-55 Serum or plasma protein measurement (mass/volume) 6.3 g/dL 6.4-8.2 Serum or plasma albumin measurement (mass/volume) 3.4 g/dL 3.2-4.5 Magnesium - 08/09/17 07:51 Magnesium 2.0 mg/dL 1.8-2.4 Automated blood complete blood count (hemogram) panel - 08/10/17 05:20 Blood leukocytes automated count (number/volume) 6.4 10*3/uL 4.3-11.0 Blood erythrocytes automated count (number/volume) 4.01 10*6/uL 4.35-5.85 Venous blood hemoglobin measurement (mass/volume) 12.2 g/dL 11.5-16.0 Blood hematocrit (volume fraction) 37 % 35-52 Automated erythrocyte mean corpuscular volume 92 [foz_us] 80-99 Automated erythrocyte mean corpuscular hemoglobin (mass per erythrocyte) 30 pg 25-34 Automated erythrocyte mean corpuscular hemoglobin concentration measurement ( mass/volume) 33 g/dL 32-36 Automated erythrocyte distribution width ratio 14.1 % 10.0-14.5 Automated blood platelet count (count/volume) 170 10*3/uL 130-400 Automated blood platelet mean volume measurement 11.1 [foz_us] 7.4-10.4 Comprehensive metabolic panel - 08/10/17 05:20 Serum or plasma sodium measurement (moles/volume) 136 mmol/L 135-145 Serum or plasma potassium measurement (moles/volume) 3.5 mmol/L 3.6-5.0 Serum or plasma chloride measurement (moles/volume) 103 mmol/L 98-107 Carbon dioxide 26 mmol/L 21-32 Serum or plasma anion gap determination (moles/volume) 7 mmol/L 5-14 Serum or plasma urea nitrogen measurement (mass/volume) 8 mg/dL 7-18 Serum or plasma creatinine measurement (mass/volume) 0.68 mg/dL 0.60-1.30 Serum or plasma urea nitrogen/creatinine mass ratio 12 NRG Serum or plasma creatinine measurement with calculation of estimated glomerular filtration rate > NRG Serum or plasma glucose measurement (mass/volume) 109 mg/dL 70-105 Serum or plasma calcium measurement (mass/volume) 8.9 mg/dL 8.5-10.1 Serum or plasma total bilirubin measurement (mass/volume) 0.5 mg/dL 0.1-1.0 Serum or plasma alkaline phosphatase measurement (enzymatic activity/volume) 52 U/L 40-136 Serum or plasma aspartate aminotransferase measurement (enzymatic activity/ volume) 15 U/L 5-34 Serum or plasma alanine aminotransferase measurement (enzymatic activity/volume ) 9 U/L 0-55 Serum or plasma protein measurement (mass/volume) 5.6 g/dL 6.4-8.2 Serum or plasma albumin measurement (mass/volume) 3.0 g/dL 3.2-4.5 Automated blood complete blood count (hemogram) panel - 08/12/17 05:18 Blood leukocytes automated count (number/volume) 6.0 10*3/uL 4.3-11.0 Blood erythrocytes automated count (number/volume) 3.72 10*6/uL 4.35-5.85 Venous blood hemoglobin measurement (mass/volume) 11.1 g/dL 11.5-16.0 Blood hematocrit (volume fraction) 35 % 35-52 Automated erythrocyte mean corpuscular volume 95 [foz_us] 80-99 Automated erythrocyte mean corpuscular hemoglobin (mass per erythrocyte) 30 pg 25-34 Automated erythrocyte mean corpuscular hemoglobin concentration measurement ( mass/volume) 31 g/dL 32-36 Automated erythrocyte distribution width ratio 14.2 % 10.0-14.5 Automated blood platelet count (count/volume) 193 10*3/uL 130-400 Automated blood platelet mean volume measurement 11.0 [foz_us] 7.4-10.4 Comprehensive metabolic panel - 08/12/17 05:18 Serum or plasma sodium measurement (moles/volume) 137 mmol/L 135-145 Serum or plasma potassium measurement (moles/volume) 4.5 mmol/L 3.6-5.0 Serum or plasma chloride measurement (moles/volume) 104 mmol/L 98-107 Carbon dioxide 26 mmol/L 21-32 Serum or plasma anion gap determination (moles/volume) 7 mmol/L 5-14 Serum or plasma urea nitrogen measurement (mass/volume) 9 mg/dL 7-18 Serum or plasma creatinine measurement (mass/volume) 0.63 mg/dL 0.60-1.30 Serum or plasma urea nitrogen/creatinine mass ratio 14 NRG Serum or plasma creatinine measurement with calculation of estimated glomerular filtration rate > NRG Serum or plasma glucose measurement (mass/volume) 104 mg/dL 70-105 Serum or plasma calcium measurement (mass/volume) 8.9 mg/dL 8.5-10.1 Serum or plasma total bilirubin measurement (mass/volume) 0.4 mg/dL 0.1-1.0 Serum or plasma alkaline phosphatase measurement (enzymatic activity/volume) 51 U/L 40-136 Serum or plasma aspartate aminotransferase measurement (enzymatic activity/ volume) 17 U/L 5-34 Serum or plasma alanine aminotransferase measurement (enzymatic activity/volume ) 13 U/L 0-55 Serum or plasma protein measurement (mass/volume) 5.2 g/dL 6.4-8.2 Serum or plasma albumin measurement (mass/volume) 2.8 g/dL 3.2-4.5 Complete blood count (CBC) with automated white blood cell (WBC) differential - 04/13/18 06:56 Blood leukocytes automated count (number/volume) 8.1 10*3/uL 4.3-11.0 Blood erythrocytes automated count (number/volume) 4.15 10*6/uL 4.35-5.85 Venous blood hemoglobin measurement (mass/volume) 12.6 g/dL 11.5-16.0 Blood hematocrit (volume fraction) 38 % 35-52 Automated erythrocyte mean corpuscular volume 92 [foz_us] 80-99 Automated erythrocyte mean corpuscular hemoglobin (mass per erythrocyte) 30 pg 25-34 Automated erythrocyte mean corpuscular hemoglobin concentration measurement ( mass/volume) 33 g/dL 32-36 Automated erythrocyte distribution width ratio 14.7 % 10.0-14.5 Automated blood platelet count (count/volume) 173 10*3/uL 130-400 Automated blood platelet mean volume measurement 10.3 [foz_us] 7.4-10.4 Automated blood neutrophils/100 leukocytes 77 % 42-75 Automated blood lymphocytes/100 leukocytes 13 % 12-44 Blood monocytes/100 leukocytes 9 % 0-12 Automated blood eosinophils/100 leukocytes 1 % 0-10 Automated blood basophils/100 leukocytes 0 % 0-10 Blood neutrophils automated count (number/volume) 6.2 10*3 1.8-7.8 Blood lymphocytes automated count (number/volume) 1.1 10*3 1.0-4.0 Blood monocytes automated count (number/volume) 0.7 10*3 0.0-1.0 Automated eosinophil count 0.0 10*3/uL 0.0-0.3 Automated blood basophil count (count/volume) 0.0 10*3/uL 0.0-0.1 Encounters ACCT No. Visit Date/Time Discharge Status Pt. Type Provider Facility Loc./Unit Complaint [id number] 08/09/2017 00:01:00 08/13/2017 11:35:00 DIS Inpatient SHELLIE OLIVIER MD [facility] 4TH SEPSIS,FEVER,HYPOXIA,S/P FALL, R PELVIS FX,AMS [id number] 10/29/2016 08:14:00 10/29/2016 23:59:59 CLS Outpatient GEORGE TEIXEIRA [facility] LAB ELEVATED HCB LOW WBC [id number] 10/21/2015 09:11:00 10/24/2015 14:30:00 DIS Inpatient NELSON CURRY DO [facility] 4TH AMS [id number] 01/21/2015 15:19:00 01/21/2015 16:54:00 DIS Emergency JERSON BOWLES MD [facility] ER FALL/HEAD LAC [id number] 01/11/2015 12:43:00 01/21/2015 13:18:00 DIS Inpatient ARIAN SALINAS MD [facility] 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 [id number] 01/08/2015 08:50:00 01/11/2015 12:35:00 DIS Inpatient ARIAN SALINAS MD [facility] 4TH ALTERED MENTAL STATUS; UNCONTROLLED HTN;UTI;HYPOMAG [id number] 10/18/2014 08:24:00 10/18/2014 13:54:00 DIS Emergency AZALEA GANDHI MD [facility] ER CONFUSION [id number] 04/15/2014 15:50:00 04/16/2014 17:35:00 DIS Inpatient ARIAN SALINAS MD [facility] 4TH UTI [id number] 01/27/2014 14:23:00 01/29/2014 13:55:00 DIS Inpatient ARIAN SALINAS MD [facility] 4TH MARKED ELECTROLYTE ABNORMALITIES,AMS [id number] 05/27/2013 12:00:00 05/27/2013 23:59:59 CLS Outpatient ARIAN SALINAS MD [facility] HH HIP FX, COUMADIN THERAPY [id number] 04/28/2013 11:30:00 04/28/2013 23:59:59 CLS Outpatient ARIAN SALINAS MD [facility] ANTICOAG THERAPY [id number] 04/08/2013 14:48:00 04/08/2013 23:59:59 CLS Outpatient [id number] 03/18/2013 13:59:00 03/18/2013 23:59:59 CLS Outpatient [id number] 02/18/2013 13:42:00 02/18/2013 23:59:59 CLS Outpatient [id number] 01/14/2013 19:30:00 01/22/2013 16:00:00 DIS Inpatient MOSES MCKEON MD [facility] SURGICAL R HIP FX [id number] 04/13/2018 06:12:00 ACT Emergency ARIAN SALINAS MD [facility] AMS [id number] 02/01/2017 12:56:11 02/01/2017 23:59:59 CLS Outpatient [id number] 01/21/2015 15:19:42 ACT Document Registration
[2018-04-13] MEDS ORDERED: NS (IVPB) 50 ML ONE (07:51)
[2018-04-13] MEDS ORDERED: cefTRIAXone 1 GM/10 ML for IV (ROCEPHIN) ONE (07:51)
[2018-04-13] MEDS ORDERED: cefTRIAXone FOR IV USE 1,000 MG in NS (IVPB) 50 ML IV ONE (08:00)
[2018-04-13] MEDS ORDERED: ACETAMINOPHEN 325 MG TABLET PO PRN (09:00)
[2018-04-13] MEDS ORDERED: CATHETER FLUSH 10 ML SYR IV PRN (09:00)
[2018-04-13] MEDS ORDERED: PEDI1TAB30 PO (09:09)
[2018-04-13] MEDS ORDERED: ACET-2267 PO (09:09)
[2018-04-13] MEDS ORDERED: CITA20TA9 PO (09:09)
[2018-04-13] MEDS ORDERED: MELO15TA39 PO (09:09)
[2018-04-13] MEDS: NS IV 1000 ML 1,000 ML IV SCH ×3 (09:20→23:33)
[2018-04-13 10:00] VITALS: BP 175/72
[2018-04-13] MEDS ORDERED: FLU QUADRIvalent (5+ YOA) 2018-2019 (AFLURIA) 0.5 ML IM ONE ×2 (10:00→12:15)
--- NOTE | 2018-04-13 11:55 | History & Physical-Hospitalist ---
History of Present Illness HPI/Chief Complaint CC: AMS HPI: This is an 87-year-old white female clinic patient of Dr. Davenport who lives at home but came to the ER with confusion found to have UTI and hyponatremia with low-grade fever tachycardia and criteria met for sepsis. She is confused now cannot give me any details whatsoever so I try to compile information for this dictation from prior records. She thinks that she needs to go to work tomorrow and she is 87 years old and obviously demented. Source: patient Exam Limitations: no limitations Date Seen 04/13/18 Time Seen by a Provider: 11:45 Attending Physician Chiqui Davenport MD PCP Chiqui Davenport MD Referring Physician Date of Admission Apr 13, 2018 at 07:41 Home Medications & Allergies Home Medications Reviewed patient Home Medication Reconciliation performed by pharmacy medication reconciliations mechanical facilities technician and/or nursing. Patients Allergies have been reviewed. Allergies Allergies Coded Allergies Penicillins (Unverified Allergy, Severe, EDEMA, 04/13/18) Past Tbsxwuw-Osxlin-Udrpbb Hx Past Med/Social Hx: Reviewed Nursing Past Med/Soc Hx, Reviewed and Corrections made Patient Social History Marrital Status: single Employed/Student: retired Alcohol Use: Denies Use Recreational Drug Use: No Smoking Status: Unknown if Ever Smoked 2nd Hand Smoke Exposure: No Physical Abuse Screen: No Sexual Abuse: No Recent Foreign Travel: No Contact w/other who traveled: No Recent Hopitalizations: No Recent Infectious Disease Expo: No Immunizations Up To Date Tetanus Booster (TDap): Unknown Pediatric: No Date of Pneumonia Vaccine: Jan 27, 2014 Date of Influenza Vaccine: Jan 27, 2014 Seasonal Allergies Seasonal Allergies: No Past Medical History Surgeries: Eye Surgery, Gallbladder, Joint Replacement, Orthopedic Currently Using CPAP: No Currently Using BIPAP: No Cardiac: Deep Vein Thrombosis, High Cholesterol, Hypertension Neurological: Dementia : No Reproductive: No Genitourinary: UTI-Chronic Musculoskeletal: Degenerate Disk Disease, Osteoporosis, Arthritis, Fractures Are Your Blood Sugars Over 250: No HEENT: Cataract Loss of Vision: Denies Hearing Impairment: Bilateral Hearing Aide Psychosocial: Anxiety, Depression History of Blood Disorders: No Adverse Reaction to Blood Chance: No Family History Myocardial infarction 19 MOTHER, Onset:60 years & older Heart Disease, Hypertension Review of Systems ROS-Unable to Obtain: unable to ascertain due to confusion Constitutional: see HPI, dizziness Physical Exam Physical Exam Vital Signs Vital Signs - First Documented 04/13/18 06:09 Temp 100.0 Pulse 103 Resp 17 B/P (MAP) 147/79 (101) Pulse Ox 91 O2 Delivery Nasal Cannula O2 Flow Rate 2.00 Capillary Refill : Less Than 3 Seconds Height, Weight, BMI Height: 5'6.00" Weight: 143lbs. 9.0oz. [id number]; 23.2 BMI Method:Estimated General Appearance: No Apparent Distress, WD/WN, Chronically ill, Cachetic Eyes: Bilateral Eye Normal Inspection, Bilateral Eye PERRL HEENT: PERRL/EOMI, Normal ENT Inspection, Pharynx Normal Neck: Full Range of Motion, Normal Inspection, Non Tender, Supple, Carotid Bruit Respiratory: Chest Non Tender, Lungs Clear, Normal Breath Sounds, No Accessory Muscle Use, No Respiratory Distress Cardiovascular: Regular Rate, Rhythm, No Edema, No Gallop, No JVD, No Murmur, Normal Peripheral Pulses Gastrointestinal: Normal Bowel Sounds, No Organomegaly, No Pulsatile Mass, Non Tender, Soft Back: Normal Inspection, No CVA Tenderness, No Vertebral Tenderness Extremity: Normal Capillary Refill, Normal Inspection, Normal Range of Motion, Non Tender, No Calf Tenderness, No Pedal Edema Neurologic/Psychiatric: Alert, No Motor/Sensory Deficits, Disoriented Skin: Normal Color, Warm/Dry Lymphatic: No Adenopathy Results Results/Procedures Labs Laboratory Tests 04/13/18 06:56 Patient resulted labs reviewed. Assessment/Plan Admission Diagnosis Assessment: Sepsis UTI Altered mental status Fever Tachycardia Elevated liver enzymes Dementia? Plan: IV abx Haldol Risperdal Admission Status: Inpatient Order (span 2 midnights) Reason for Inpatient Admission: Sepsis with advanced age patient with confusion and will need fdc placement Diagnosis/Problems Diagnosis/Problems (1) Sepsis Status: Acute Qualifiers: Sepsis type: sepsis due to unspecified organism Qualified Codes: A41.9 - Sepsis, unspecified organism (2) Hyponatremia Status: Acute (3) UTI (urinary tract infection) Status: Acute (4) Altered mental status Status: Acute Qualifiers: Altered mental status type: delirium Qualified Codes: R41.0 - Disorientation, unspecified (5) Liver enzyme elevation Status: Acute (6) Frailty Status: Acute (7) Advanced age Status: Chronic (8) Poor prognosis Status: Acute (9) Weakness Status: Acute (10) Hypertension Status: Chronic Qualifiers: Hypertension type: essential hypertension Qualified Codes: I10 - Essential (primary) hypertension (11) Anxiety Status: Chronic Clinical Quality Measures DVT/VTE Risk/Contraindication: Risk Factor Score Per Nursin RFS Level Per Nursing on Admit: 4+=Very High NELSON CURRY DO Apr 13, 2018 11:55
[2018-04-13 12:00] VITALS: BP 160/71
[2018-04-13] MEDS ORDERED: ACETAMINOPHEN 500 MG TAB (TYLENOL) PO PRN (12:00)
[2018-04-13] MEDS ORDERED: risperiDONE 0.25 MG (RisperDAL) TAB PO NR (12:00)
[2018-04-13] MEDS ORDERED: fentaNYL INJECTION 100 MCG/2 ML AMP IVP PRN (12:00)
[2018-04-13] MEDS ORDERED: diphenhydrAMINE 25 MG TAB (BENADRYL) PO PRN (12:00)
[2018-04-13] MEDS ORDERED: CALCIUM CARBONATE 500 MG (TUMS) TAB.CHEW PO PRN (12:00)
[2018-04-13] MEDS ORDERED: NON-FORMULARY MEDICATION 1 EA EA (Hydrocodone/Acetaminophen (Hydrocodone-Acetamin 5-325 mg PO PRN (12:00)
[2018-04-13] MEDS ORDERED: ONDANSETRON 4 MG/2 ML (SDV) Z0FRAN IVP PRN (12:00)
[2018-04-13] MEDS ORDERED: HYDROcodone/APAP 5 MG/325 MG (LORTAB) TAB PO PRN (12:15)
[2018-04-13] MEDS: clonazePAM 1 MG (KlonoPIN) TAB PO SCH ×2 (12:24→19:52)
[2018-04-13] MEDS ORDERED: NON-FORMULARY MEDICATION 1 EA EA (Clonazepam 1 MG) PO SCH (13:00)
[2018-04-13 15:53] VITALS: BP 146/70
--- NOTE | 2018-04-13 16:51 | Diagnostic Imaging Report ---
Indication: Followup central line placement. Comparison: 04/13/2018. Discussion: Single upright frontal view of the chest was obtained. New right IJ central venous catheter with tip in the high right atrium in good position. No pneumothorax identified. Stable heart size. Elevated right hemidiaphragm. Impression: 1. New right IJ central venous catheter with tip in the high right atrium in good position. No pneumothorax. Dictated by: Dictated on workstation # [id number]
[2018-04-13] MEDS: risperiDONE 0.25 MG (RisperDAL) TAB PO SCH (19:52)
[2018-04-13 20:00] VITALS: BP 140/67
[2018-04-13] MEDS ORDERED: CRANBERRY FRUIT PO SCH (21:00)
[2018-04-14] VITALS: BP 131/62
[2018-04-14 04:00] VITALS: BP 164/68
[2018-04-14 05:20] LABS: BASOPHILS % (AUTO) 0 % (0-10); EOSINOPHILS # (AUTO) 0.1 10^3/uL (0.0-0.3); EOSINOPHILS % (AUTO) 1 % (0-10); HEMATOCRIT 35 % (35-52); HEMOGLOBIN 11.1 G/DL (11.5-16.0); LYMPHOCYTES # (AUTO) 1.2 X 10^3 (1.0-4.0); LYMPHOCYTES % (AUTO) 20 % (12-44); MEAN CORPUSCULAR HEMOGLOBIN 29 PG (25-34); MEAN CORPUSCULAR HGB CONC 32 G/DL (32-36); MEAN CORPUSCULAR VOLUME 92 FL (80-99); MEAN PLATELET VOLUME 9.8 FL (7.4-10.4); MONOCYTES # (AUTO) 0.5 X 10^3 (0.0-1.0); MONOCYTES % (AUTO) 9 % (0-12); NEUTROPHILS # (AUTO) 4.3 X 10^3 (1.8-7.8); NEUTROPHILS % (AUTO) 70 % (42-75); PLATELET COUNT 170 10^3/uL (130-400); RED BLOOD COUNT 3.81 10^6/uL (4.35-5.85); RED CELL DISTRIBUTION WIDTH 14.7 % (10.0-14.5); WHITE BLOOD COUNT 6.2 10^3/uL (4.3-11.0)
[2018-04-14] MEDS: KCL 10 MEQ TAB (MICRO K) PO SCH (05:23)
[2018-04-14] MEDS: LORazepam INJ 2 MG/ML (ATIVAN) VIAL IVP PRN ×2 (05:23→14:03)
[2018-04-14] MEDS: PANTOPRAZOLE 20 MG TABLET (PROTONIX) PO SCH (05:23)
[2018-04-14 05:40] LABS: ALANINE AMINOTRANSFERASE 65 U/L (0-55); ALBUMIN 3.2 GM/DL (3.2-4.5); ALKALINE PHOSPHATASE 206 U/L (40-136); BILIRUBIN,TOTAL 0.4 MG/DL (0.1-1.0); BUN/CREATININE RATIO 17; CALCIUM 9.3 MG/DL (8.5-10.1); CARBON DIOXIDE 25 MMOL/L (21-32); CHLORIDE 102 MMOL/L (98-107); CREATININE SERUM 0.69 MG/DL (0.60-1.30); GFR ESTIMATED > 60; GLUCOSE 89 MG/DL (70-105); POTASSIUM 4.3 MMOL/L (3.6-5.0); SODIUM 136 MMOL/L (135-145); TOTAL PROTEIN 6.1 GM/DL (6.4-8.2)
[2018-04-14 08:00] VITALS: BP 165/71
[2018-04-14] MEDS: clonazePAM 1 MG (KlonoPIN) TAB PO SCH ×3 (08:41→20:44)
[2018-04-14] MEDS: cefTRIAXone 1 GM/NS 50 ML IVPB IV SCH ×2 (08:41)
[2018-04-14] MEDS: amLODIPine 10 MG (NORVASC) TAB PO SCH (08:41)
[2018-04-14] MEDS: risperiDONE 0.25 MG (RisperDAL) TAB PO SCH ×2 (08:41→20:44)
--- NOTE | 2018-04-14 08:43 | Progress Note ---
Subjective Date Seen by a Provider: Apr 14, 2018 Time Seen by a Provider: 08:30 Subjective/Events-last exam PT REPORTS THAT SHE IS FEELING "OKAY" - HOWEVER SHE IS CONFUSED TO WHERE SHE IS, IS UNSURE WHO THIS ASSOCIATE PROPERTY MANAGER IS - SHE REPORTED MY NAME WAS "AMBER". THE PT'S DAUGHTER WAS CONTACTED THIS MORNING - THEY HAVE HAD ILLNESS AT THE HOUSE - HER SON HAS BEEN SICK FOR THE PAST 10 DAYS AND SHE HAS BEEN FEELING POORLY WELL - FOR A FEW DAYS PRIOR TO HER MOM BEING ADMITTED TO THE HOSPITAL. NURSING STAFF NOTES THAT THE PATIENT HAS NOT EATEN WELL THIS MORNING SHE DRANK HER JUICE AND ONLY ATE A FEW BITES OF HER MEAL. Review of Systems General: Fatigue, Other (FEVER OVER NIGHT LAST NIGHT UP TO 102F) HEENT: No Dysphasia Pulmonary: Dyspnea, Cough Cardiovascular: Edema (AT ANKLES); No: Chest Pain Gastrointestinal: No: Nausea, Vomiting Musculoskeletal: No: back pain, leg pain Neurological: Weakness, Confusion Focused Exam Lactate Level 04/13/18 06:45: Lactic Acid Level 0.94 Objective Exam Last Set of Vital Signs Vital Signs Date Time Temp Pulse Resp B/P (MAP) Pulse Ox O2 Delivery O2 Flow Rate FiO2 04/14/18 08:40 Nasal Cannula 1.50 04/14/18 04:00 99.3 94 20 164/68 (100) 97 Capillary Refill : Less Than 3 Seconds I&O Intake and Output 04/14/18 00:00 Intake Total 2060 ml Output Total 1025 ml Balance 1035 ml Intake Oral 860 ml IV Total 1200 ml Output Urine Total 1025 ml Daily Weight Change No General: Alert, Cooperative, No Acute Distress, Other (NOT ORIENTED TO PLACE OR TIME) HEENT: Atraumatic, PERRLA Neck: Supple Lungs: Other (CRACKLES IN RIGHT BASE, POOR AIR MOVEMENT THROUGHOUT WITH POOR PT EFFORT, RHONCHI) Heart: Other (TACHYCARDIA) Abdomen: Normal Bowel Sounds, Soft, No Tenderness Extremities: Other (1+EDEMA BILATERAL LOWER EXTREMITIES) Skin: No Rashes Neuro: Normal Speech Psych/Mental Status: Other (CONFUSED) Results Lab Laboratory Tests 04/14/18 05:10: White Blood Count 6.2, Red Blood Count 3.81L, Hemoglobin 11.1L, Hematocrit 35, Mean Corpuscular Volume 92, Mean Corpuscular Hemoglobin 29, Mean Corpuscular Hemoglobin Concent 32, Red Cell Distribution Width 14.7H, Platelet Count 170, Mean Platelet Volume 9.8, Neutrophils (%) (Auto) 70, Lymphocytes (%) (Auto) 20, Monocytes (%) (Auto) 9, Eosinophils (%) (Auto) 1, Basophils (%) (Auto) 0, Neutrophils # (Auto) 4.3, Lymphocytes # (Auto) 1.2, Monocytes # (Auto) 0.5, Eosinophils # (Auto) 0.1, Basophils # (Auto) 0.0, Sodium Level 136, Potassium Level 4.3, Chloride Level 102, Carbon Dioxide Level 25, Anion Gap 9, Blood Urea Nitrogen 12, Creatinine 0.69, Estimat Glomerular Filtration Rate > 60, BUN/ Creatinine Ratio 17, Glucose Level 89, Calcium Level 9.3, Corrected Calcium 9.9 , Total Bilirubin 0.4, Aspartate Amino Transf (AST/SGOT) 44H, Alanine Aminotransferase (ALT/SGPT) 65H, Alkaline Phosphatase 206H, Total Protein 6.1L, Albumin 3.2 Assessment/Plan Assessment/Plan Assess & Plan/Chief Complaint SEPSIS URINARY TRACT INFECTION CONFUSION FEVER TACHYCARDIA ELEVATED LIVER ENZYMES DEMENTIA COUGH DYSPNEA SEPSIS WITH FEVER DUE TO URINARY TRACT INFECTION - LACTIC ACID NOT ELEVATED - CONTINUE WITH IV ANTIBIOTICS - ROCEPHIN, MONITOR URINE CULTURE REPORT. CHECK FLU SWAB THERE ARE TWO OTHER ILL INDIVIDUALS AT HOME WITH SIMILAR SYMPTOMS. CONFUSION - SUPPORTIVE CARE AT THIS TIME - PART OF PROBLEM IS BASELINE MILD DEMENTIA WITH INFECTION LEADING TO MORE CONFUSION. TACHYCARDIA - CONTINUE WITH METOPROLOL. ELEVATED LIVER ENZYMES - DUE TO SEPSIS WITH SHOCK AT HOME - IMPROVED WITH HYDRATION. REPEAT LABS TOMORROW MORNING. COUGH AND DYSPNEA - CONTINUE WITH OXYGEN - REPEAT CHEST XRAY TOMORROW MORNING. DISCUSSED WITH HER DTR - WILL MAKE PT DNR/DNI Clinical Quality Measures DVT/VTE Risk/Contraindication: Risk Factor Score Per Nursin RFS Level Per Nursing on Admit: 4+=Very High SHELLIE OLIVIER MD Apr 14, 2018 08:43
[2018-04-14] MEDS ORDERED: OMEPRAZOLE 20 MG (PriLOSEC) CAP NON-FORMULARY PO SCH (09:00)
[2018-04-14] MEDS ORDERED: NON-FORMULARY MEDICATION 1 EA EA (Amlodipine Besylate 10 MG) PO SCH (09:00)
[2018-04-14] MEDS ORDERED: cefTRIAXone FOR IV USE 1,000 MG in NS (IVPB) 50 ML IV SCH (09:00)
[2018-04-14] MEDS: NS IV 1000 ML 1,000 ML IV SCH (11:36)
[2018-04-14 12:00] VITALS: BP 156/74
--- NOTE | 2018-04-14 15:10 | OPERATIVE REPORT ---
DATE OF SERVICE: 04/13/2018 PREOPERATIVE DIAGNOSIS: Need for central line access. POSTOPERATIVE DIAGNOSIS: Need for central line access. PROCEDURE: Right internal jugular vein ultrasound-guided central line placement. SURGEON: Humphrey Chicas DO ANESTHESIA: 3 mL 1% lidocaine. ESTIMATED BLOOD LOSS: Minimal. COMPLICATIONS: None. INDICATIONS: The patient is an 87-year-old female in with sepsis and need for central line access. The patient's family understand risks and benefits of procedure and consent was signed in the chart. PROCEDURE: The patient was prepped and draped in sterile fashion. The right internal jugular vein was located using the ultrasound. Under direct visualization with the ultrasound, the right internal jugular vein was accessed. Dark nonpulsatile blood was withdrawn. Guidewire was inserted through the needle and the needle was removed. A #11 blade scalpel was used to make a small skin incision and the dilator was then advanced over the wire and the dilator was removed. The triple lumen catheter was inserted over the wire and the wire was removed. The catheter was secured with 3-0 silk suture. All ports were accessed and flushed without difficulty. The area was washed and dried and sterile bandage was applied. The patient tolerated procedure well without any complications. Chest x-ray pending. Job ID: [id number] DocumentID: [id number] Dictated Date: 04/14/2018 10:43:54 Graduate Teacher Education Date: 04/14/2018 15:10:20 Dictated By: HUMPHREY CHICAS DO
[2018-04-14 16:00] VITALS: BP 153/71
--- NOTE | 2018-04-14 18:55 | Consultation ---
History of Present Illness History of Present Illness Patient Consulted On(tatyana/time) 04/13/18 16:48 Date Seen by Provider: Apr 13, 2018 Time Seen by Provider: 16:48 History of Present Illness Consult requested by Dr. See for central line placement. Patient is an 87-year-old female who was admitted for urinary tract infection, confusion and low-grade temperature/tachycardia meeting sepsis criteria. Patient needing IV antibiotics. She's had multiple attempts at having IV placed and she has pulled them else or they have been unable to get any further IVs. Patient is confused. No family at bedside. Patient needing central line access for continued medical therapy. Allergies and Home Medications Allergies Coded Allergies: Penicillins (Unverified Allergy, Severe, EDEMA, 04/13/18) Home Medications Acetaminophen 500 Mg Tablet, 500 MG PO BID Prescribed by: YAMIL WINTERS on 04/13/18 09 Amlodipine Besylate 10 Mg Tablet, 10 MG PO DAILY, (Reported) Cholecalciferol (Vitamin D3) 1,000 Unit Capsule, 2,000 UNIT PO HS, (Reported) TAKES 2 (1000 UNIT) CAPSULES Citalopram Hydrobromide 20 Mg Tablet, 20 MG PO HS Prescribed by: YAMIL WINTERS on 04/13/18908 Clonazepam 1 Mg Tablet, 1 MG PO TID Prescribed by: SHELLIE OLIVIER on 08/13/17828 Cranberry Fruit 450 Mg Tablet, 2 TAB PO HS, (Reported) Hydrocodone/Acetaminophen 1 Each Tablet, 1 EACH PO QID PRN for PAIN-MILD TO MODERATE Prescribed by: SHELLIE OLIVIER on 08/13/17 08 Lisinopril 10 Mg Tablet, 10 MG PO DAILY, (Reported) Meloxicam 15 Mg Tablet, 15 MG PO DAILY Prescribed by: YAMIL WINTERS on 04/13/18 09 Metoprolol Succinate 25 Mg Tab.er.24h, 25 MG PO DAILY, (Reported) Omeprazole 20 Mg Capsule.dr, 20 MG PO DAILY, (Reported) Pediatric Multivit Comb No.29 1 Each Tab.chew, 1 EACH PO HS Prescribed by: YAMIL WINTERS on 04/13/18 09 Potassium Chloride 10 Meq Tablet.er, 20 MEQ PO DAILY, (Reported) TAKES 2 (10MEQ) TABLETS Simvastatin 20 Mg Tablet, 20 MG PO HS, (Reported) Patient Home Medication List Home Medication List Reviewed: Yes Past Ksvhnen-Edmzvh-Qhymid Hx Patient Social History Alcohol Use: Denies Use Recreational Drug Use: No Smoking Status: Unknown if Ever Smoked 2nd Hand Smoke Exposure: No Recent Foreign Travel: No Contact w/Someone Who Travel: No Recent Infectious Disease Expo: No Recent Hopitalizations: No Physical Abuse Screen: No Sexual Abuse: No Immunizations Up To Date Tetanus Booster (TDap): Unknown PED Vaccines UTD: No Date of Pneumonia Vaccine: Jan 27, 2014 Date of Influenza Vaccine: Jan 27, 2014 Seasonal Allergies Seasonal Allergies: No Surgeries History of Surgeries: Yes Surgeries: Eye Surgery, Gallbladder, Joint Replacement, Orthopedic Respiratory History of Respiratory Disorde: No Cardiovascular History of Cardiac Disorders: Yes Cardiac Disorders: Deep Vein Thrombosis, High Cholesterol, Hypertension Neurological History of Neurological Disord: No Neurological Disorders: Dementia Reproductive System : No Hx Reproductive Disorders: No Genitourinary History of Genitourinary Disor: Yes Genitourinary Disorders: UTI-Chronic Gastrointestinal History of Gastrointestinal Di: No Musculoskeletal History of Musculoskeletal Dis: Yes Musculoskeletal Disorders: Degenerate Disk Disease, Osteoporosis, Arthritis, Fractures Endocrine History of Endocrine Disorders: No HEENT History of HEENT Disorders: Yes HEENT Disorders: Cataract Loss of Vision: Denies Hearing Impairment: Bilateral Hearing Aide Cancer History of Cancer: No Psychosocial History of Psychiatric Problem: Yes Behavioral Health Disorders: Anxiety, Depression Integumentary History of Skin or Integumenta: No Blood Transfusions History of Blood Disorders: No Adverse Reaction to a Blood Tr: No Family Medical History Significant Family History: Heart Disease, Hypertension Family Medial History: Myocardial infarction 19 MOTHER, Onset:60 years & older Review of Systems-General ROS-Unable to Obtain: Patient confused Physical Exam-General Problems Physical Exam Vital Signs Vital Signs - First Documented 04/13/18 06:09 Temp 100.0 Pulse 103 Resp 17 B/P (MAP) 147/79 (101) Pulse Ox 91 O2 Delivery Nasal Cannula O2 Flow Rate 2.00 Capillary Refill : Less Than 3 Seconds General Appearance: no apparent distress HEENT: PERRL/EOMI Neck: supple Respiratory: chest non-tender, no respiratory distress, no accessory muscle use Cardiovascular: tachycardia Gastrointestinal: normal bowel sounds, non tender, soft, no organomegaly Rectal: deferred Back: no CVA tenderness Extremities: non-tender, normal inspection Neurologic/Psychiatric: alert, normal mood/affect; No oriented x 3 Skin: normal color, warm/dry Lymphatic: no adenopathy Data Review Labs Laboratory Tests 04/14/18 05:10: White Blood Count 6.2, Red Blood Count 3.81L, Hemoglobin 11.1L, Hematocrit 35, Mean Corpuscular Volume 92, Mean Corpuscular Hemoglobin 29, Mean Corpuscular Hemoglobin Concent 32, Red Cell Distribution Width 14.7H, Platelet Count 170, Mean Platelet Volume 9.8, Neutrophils (%) (Auto) 70, Lymphocytes (%) (Auto) 20, Monocytes (%) (Auto) 9, Eosinophils (%) (Auto) 1, Basophils (%) (Auto) 0, Neutrophils # (Auto) 4.3, Lymphocytes # (Auto) 1.2, Monocytes # (Auto) 0.5, Eosinophils # (Auto) 0.1, Basophils # (Auto) 0.0, Sodium Level 136, Potassium Level 4.3, Chloride Level 102, Carbon Dioxide Level 25, Anion Gap 9, Blood Urea Nitrogen 12, Creatinine 0.69, Estimat Glomerular Filtration Rate > 60, BUN/ Creatinine Ratio 17, Glucose Level 89, Calcium Level 9.3, Corrected Calcium 9.9 , Total Bilirubin 0.4, Aspartate Amino Transf (AST/SGOT) 44H, Alanine Aminotransferase (ALT/SGPT) 65H, Alkaline Phosphatase 206H, Total Protein 6.1L, Albumin 3.2 Microbiology 04/13/18 Blood Culture - Preliminary, Resulted No growth 04/14/18 Influenza Types A,B Antigen (BRIAN) - Final, Complete 04/13/18 Urine Culture - Final, Complete YEAST Assessment/Plan Assessment/Plan Assessment/Plan SEPSIS URINARY TRACT INFECTION CONFUSION Patient needing central venous access due to inability to obtain peripheral IV access. Patient needing line for continued medical management. No PICC line team available today. We'll place a central line. Consent obtained. Clinical Quality Measures DVT/VTE Risk/Contraindication: Risk Factor Score Per Nursin RFS Level Per Nursing on Admit: 4+=Very High HUMPHREY CORRALES DO Apr 14, 2018 18:55
--- NOTE | 2018-04-14 19:00 | Progress Note ---
Subjective Date Seen by a Provider: Apr 14, 2018 Time Seen by a Provider: 18:57 Subjective/Events-last exam Patient still with confusion. Central line still in place right internal jugular vein. Chest x-ray demonstrated no pneumothorax and adequate position. Patient with no family at bedside. Focused Exam Lactate Level 04/13/18 06:45: Lactic Acid Level 0.94 Objective Exam Vital Signs Date Time Temp Pulse Resp B/P (MAP) Pulse Ox O2 Delivery O2 Flow Rate FiO2 04/14/18 16:00 99.9 106 18 153/71 (98) 93 Room Air 04/14/18 12:00 99.1 103 20 156/74 (101) 92 OxyMask 3.00 04/14/18 08:40 Nasal Cannula 1.50 04/14/18 08:00 99.3 110 18 165/71 (102) 93 OxyMask 3.00 04/14/18 08:00 93 Room Air 04/14/18 04:00 99.3 94 20 164/68 (100) 97 OxyMask 3.00 04/14/18 00:00 99.6 88 22 131/62 (85) 93 OxyMask 3.00 04/13/18 20:00 Room Air 04/13/18 20:00 102.1 103 20 140/67 (91) 93 Room Air I & O 04/14/18 07:00 Intake Total 2060 ml Output Total 1575 ml Balance 485 ml Capillary Refill : Less Than 3 Seconds General Appearance: No Apparent Distress, WD/WN, Chronically ill, Cachetic HEENT: PERRL/EOMI, Normal ENT Inspection, Pharynx Normal Neck: Normal Inspection, Non Tender, Supple Respiratory: Chest Non Tender, No Accessory Muscle Use, No Respiratory Distress Cardiovascular: Regular Rate, Rhythm Gastrointestinal: non tender, soft, no organomegaly Extremity: Normal Capillary Refill, Normal Inspection, Normal Range of Motion, Non Tender, No Calf Tenderness, No Pedal Edema Neurologic/Psychiatric: Alert; No Oriented x3; No Motor/Sensory Deficits, Disoriented Skin: Normal Color, Warm/Dry Lymphatic: No Adenopathy Results Lab Laboratory Tests 04/14/18 05:10: White Blood Count 6.2, Red Blood Count 3.81L, Hemoglobin 11.1L, Hematocrit 35, Mean Corpuscular Volume 92, Mean Corpuscular Hemoglobin 29, Mean Corpuscular Hemoglobin Concent 32, Red Cell Distribution Width 14.7H, Platelet Count 170, Mean Platelet Volume 9.8, Neutrophils (%) (Auto) 70, Lymphocytes (%) (Auto) 20, Monocytes (%) (Auto) 9, Eosinophils (%) (Auto) 1, Basophils (%) (Auto) 0, Neutrophils # (Auto) 4.3, Lymphocytes # (Auto) 1.2, Monocytes # (Auto) 0.5, Eosinophils # (Auto) 0.1, Basophils # (Auto) 0.0, Sodium Level 136, Potassium Level 4.3, Chloride Level 102, Carbon Dioxide Level 25, Anion Gap 9, Blood Urea Nitrogen 12, Creatinine 0.69, Estimat Glomerular Filtration Rate > 60, BUN/ Creatinine Ratio 17, Glucose Level 89, Calcium Level 9.3, Corrected Calcium 9.9 , Total Bilirubin 0.4, Aspartate Amino Transf (AST/SGOT) 44H, Alanine Aminotransferase (ALT/SGPT) 65H, Alkaline Phosphatase 206H, Total Protein 6.1L, Albumin 3.2 Microbiology 04/13/18 Blood Culture - Preliminary, Resulted No growth 04/14/18 Influenza Types A,B Antigen (BRIAN) - Final, Complete 04/13/18 Urine Culture - Final, Complete YEAST Assessment/Plan Assessment/Plan Assessment/Plan SEPSIS URINARY TRACT INFECTION CONFUSION central line placed yesterday. No surgical issues at this time. Will sign off, call if needed please. Clinical Quality Measures DVT/VTE Risk/Contraindication: Risk Factor Score Per Nursin RFS Level Per Nursing on Admit: 4+=Very High HUMPHREY CORRALES DO Apr 14, 2018 19:00
[2018-04-14 20:00] VITALS: BP 154/70
[2018-04-14] MEDS: MELATONIN 3 MG TABLET PO PRN (20:48)
[2018-04-15 00:09] VITALS: BP 113/67
[2018-04-15] MEDS: NS IV 1000 ML 1,000 ML IV SCH ×2 (02:00→12:47)
[2018-04-15 04:01] VITALS: BP 115/61
[2018-04-15] MEDS: PANTOPRAZOLE 20 MG TABLET (PROTONIX) PO SCH (06:00)
[2018-04-15] MEDS: KCL 10 MEQ TAB (MICRO K) PO SCH (06:00)
[2018-04-15 06:13] LABS: HEMOGLOBIN 10.4 G/DL (11.5-16.0); MEAN PLATELET VOLUME 9.9 FL (7.4-10.4); RED BLOOD COUNT 3.51 10^6/uL (4.35-5.85); RED CELL DISTRIBUTION WIDTH 14.7 % (10.0-14.5); WHITE BLOOD COUNT 4.8 10^3/uL (4.3-11.0)
[2018-04-15 06:36] LABS: BUN/CREATININE RATIO 10; CARBON DIOXIDE 27 MMOL/L (21-32); CHLORIDE 105 MMOL/L (98-107); CREATININE SERUM 0.61 MG/DL (0.60-1.30); GFR ESTIMATED > 60; GLUCOSE 82 MG/DL (70-105); POTASSIUM 3.8 MMOL/L (3.6-5.0); SODIUM 139 MMOL/L (135-145)
[2018-04-15 08:00] VITALS: BP 143/67
[2018-04-15] MEDS: cefTRIAXone 1 GM/NS 50 ML IVPB IV SCH ×2 (08:52)
[2018-04-15] MEDS: clonazePAM 1 MG (KlonoPIN) TAB PO SCH ×3 (08:52→20:03)
[2018-04-15] MEDS: risperiDONE 0.25 MG (RisperDAL) TAB PO SCH ×2 (08:52→20:03)
[2018-04-15] MEDS: amLODIPine 10 MG (NORVASC) TAB PO SCH (08:52)
--- NOTE | 2018-04-15 09:06 | Progress Note ---
Subjective Date Seen by a Provider: Apr 15, 2018 Time Seen by a Provider: 09:00 Subjective/Events-last exam PT IS CONFUSED, CONTINUES TO REPORT THAT SHE IS NOT IN THE HOSPITAL. HER FAMILY REPORTS THAT SHE HAS BEEN QUITE WEAK, UNABLE TO AMBULATE UNDER HER OWN POWER SINCE HER LAST HOSPITALIZATION. Review of Systems General: Fatigue HEENT: No Head Aches Pulmonary: Dyspnea, Cough Cardiovascular: No: Chest Pain, Palpitations Gastrointestinal: No: Nausea, Abdominal Pain Neurological: Weakness, Confusion Focused Exam Lactate Level 04/13/18 06:45: Lactic Acid Level 0.94 Objective Exam Last Set of Vital Signs Vital Signs Date Time Temp Pulse Resp B/P (MAP) Pulse Ox O2 Delivery O2 Flow Rate FiO2 04/15/18 07:53 Nasal Cannula 2.00 04/15/18 04:01 98.1 72 18 115/61 (79) 95 Capillary Refill : Less Than 3 Seconds I&O Intake and Output 04/15/18 00:00 Intake Total 2250 ml Output Total 2375 ml Balance -125 ml Intake Oral 1200 ml IV Total 1050 ml Output Urine Total 2375 ml # Bowel Movements 1 General: Alert, Cooperative, No Acute Distress, Other (NOT ORIENTED TO PLACE OR TIME) HEENT: Atraumatic, PERRLA Neck: Supple Lungs: Other (CRACKLES IN RIGHT BASE, POOR AIR MOVEMENT THROUGHOUT WITH POOR PT EFFORT) Heart: Other (TACHYCARDIA) Abdomen: Normal Bowel Sounds, Soft, No Tenderness Extremities: No Clubbing, No Cyanosis Skin: No Rashes Neuro: Normal Speech Psych/Mental Status: Other (CONFUSED) Results Lab Laboratory Tests 04/15/18 06:00: White Blood Count 4.8, Red Blood Count 3.51L, Hemoglobin 10.4L, Hematocrit 33L, Mean Corpuscular Volume 93, Mean Corpuscular Hemoglobin 30, Mean Corpuscular Hemoglobin Concent 32, Red Cell Distribution Width 14.7H, Platelet Count 179, Mean Platelet Volume 9.9, Sodium Level 139, Potassium Level 3.8, Chloride Level 105, Carbon Dioxide Level 27, Anion Gap 7, Blood Urea Nitrogen 6L, Creatinine 0.61, Estimat Glomerular Filtration Rate > 60, BUN/Creatinine Ratio 10, Glucose Level 82, Calcium Level 9.0 Microbiology 04/13/18 Blood Culture - Preliminary, Resulted No growth 04/14/18 Influenza Types A,B Antigen (BRIAN) - Final, Complete 04/13/18 Urine Culture - Final, Complete YEAST Assessment/Plan Assessment/Plan Assess & Plan/Chief Complaint SEPSIS URINARY TRACT INFECTION CONFUSION FEVER TACHYCARDIA ELEVATED LIVER ENZYMES DEMENTIA COUGH DYSPNEA SEPSIS WITH FEVER DUE TO URINARY TRACT INFECTION - LACTIC ACID NOT ELEVATED - PT ON DIFLUCAN FOR YEAST IN URINE FLU SWAB NEGATIVE CONFUSION - SUPPORTIVE CARE AT THIS TIME - PART OF PROBLEM IS BASELINE MILD DEMENTIA WITH INFECTION LEADING TO MORE CONFUSION. TACHYCARDIA - CONTINUE WITH METOPROLOL. ELEVATED LIVER ENZYMES - DUE TO SEPSIS WITH SHOCK AT HOME - IMPROVED WITH HYDRATION. REPEAT LABS CONTINUE TO IMPROVE. COUGH AND DYSPNEA - CONTINUE WITH OXYGEN - Clinical Quality Measures DVT/VTE Risk/Contraindication: Risk Factor Score Per Nursin RFS Level Per Nursing on Admit: 4+=Very High SHELLIE OLIVIER MD Apr 15, 2018 09:06
[2018-04-15] MEDS: fluCOnazole (DIFLUCAN) 100 MG TAB PO SCH (09:51)
--- NOTE | 2018-04-15 11:31 | Diagnostic Imaging Report ---
INDICATION: Cough, UTI, and sepsis. COMPARISON: 04/13/2018. FINDINGS: The right IJ catheter is stable. The lungs are clear. There is no failure, effusion, or pneumothorax. Old right rib deformities are chronic. A retrocardiac air/fluid collection is presumed hernia, chronic. IMPRESSION: No acute appearing abnormality. A retrocardiac hernia is noted. Stable central line. Dictated by: Dictated on workstation # [id number]
[2018-04-15 11:44] VITALS: BP 124/63
--- NOTE | 2018-04-15 11:55 | Physical Therapy Evaluation ---
PT Evaluation-General Medical Diagnosis Admission Date Apr 13, 2018 at 11:45 Medical Diagnosis: UTI/sepsis Onset Date: Apr 13, 2018 Therapy Diagnosis Therapy Diagnosis: generalized weakness/debility Height/Weight Height (Feet): 5 Height (Inches): 6.00 Weight (Pounds): 143 Weight (Ounces): 9.0 Precautions Precautions/Isolations: Fall Prevention, Standard Precautions Weight Bear Status Right Lower Extremity: Right Full Weight Bearing Left Lower Extremity: Left Full Weight Bearing Referral Physician: Issac Reason for Referral: Evaluation/Treatment Medical History Pertinent Medical History: Arthritis, Dementia, HTN Additional Medical History nonambulatory PLOF Current History EMS secondary to urine output and confusion x 12-24 hours Reviewed History: Yes Social History Home: Single Level Current Living Status: Other Family Entry Into Home: Ramp Prior/Core FIM Prior Level of Function Therapy Code Descriptions/Definitions Functional [place] Measure: 0=Not Assessed/NA 4=Minimal Assistance 1=Total Assistance 5=Supervision or Setup 2=Maximal Assistance 6=Modified [place] 3=Moderate Assistance 7=Complete [place] Therapy Quality Codes: 6 Independent with activity with or without an assistive device 5 Patient requires set up or clean up by helper. Patient completes activity by themselves 4 Supervision or touching assist (CGA). [place] provide cues , steadying assist 3 The helper provides less than half the effort to complete the activity 2 The helper provides more than half the effort to complete the activity 1 Dependent. The helper does all the effort to complete an activity 7 Patient refused to complete or attempt activity 9 The patient did not perform the activity before the current illness or injury 88 Not attempted due to Medical conditions or safety concerns Functional Abilities and Goals: Independent: Patient completed the activities by him/herself, with or without an assistive device, with no assistance from a helper. Needed Some Help: Patient needed partial assistance from another person to complete activities. Dependent: A helper completed the activities for the patient. Unknown: Not Applicable: Bed Mobility: 2 Transfers (B,C,W/C) (FIM): 2 Indoor Mobility (Ambulation): Dependent Stairs: Dependent Prior Devices Use: Manual wheelchair PT Evaluation-Current Subjective Patient is very confused. Does agree to up in recliner. Pain Numeric Pain Scale: 0-No Pain Location: No Pain Reported Objective Patient Orientation: Confused Attachments: Oxygen, Mcguire Catheter, IV ROM/Strength ROM Lower Extremities bilateral LE WFL Strength Lower Extremities 3-/5 grossly bilaterally Integumentary/Posture Integumentary refer to nursing notes Bladder Incontinence: Mcguire Cath Posture kyphotic Neuromuscular (Tone, Coordination, Reflexes) diminished with all due to inactivity PLOF Sensory Vision: Functional Hearing: Hearing Aid/Aides Sensation Right Lower Extremit: Impaired Sensation Left Lower Extremity: Impaired Transfers Therapy Code Descriptions/Definitions Functional [place] Measure: 0=Not Assessed/NA 4=Minimal Assistance 1=Total Assistance 5=Supervision or Setup 2=Maximal Assistance 6=Modified [place] 3=Moderate Assistance 7=Complete [place] Transfers (B, C, W/C) (FIM): 2 Scootin Rollin Supine to/from Sit: 2 Sit to/from Stand: 2 bed t/f WC(FIM only if WC use): 2 Gait Mode of Locomotion: Wheelchair Anticipated Mode of Locomotion: Wheelchair Balance Sitting Static: Fair Sitting Dynamic: Fair Standing Static: Poor Standing Dynamic: Poor Assessment/Needs 87 y.o. female, will be seen short term by skilled PT to address functional strength and transfers to improve current LOF. Patient is very limited due to confusion, inability to follow simple direction and advanced age/inactivity. Rehab Potential: Guarded PT Alf Goals Hand Icer Goals PT Hand Icer Goals Time Frame: Apr 19, 2018 Transfers (B,C,W/C) (FIM): 2 PT Plan Problem List Problem List: Activity Tolerance, Functional Strength, Safety, Balance, Transfer, Bed Mobility Treatment/Plan Treatment Plan: Continue Plan of Care Treatment Plan: Bed Mobility, Education, Functional Activity [place], Functional Strength, Safety, Therapeutic Exercise, Transfers Treatment Duration: Apr 19, 2018 Frequency: 5 times per week Estimated Hrs Per Day: .25 hour per day Patient and/or Family Agrees t: Yes Discharge Recommendations Therapy D/C Recommendations: Home w/ Family Support, Snf Placement, Retirement (TCU/NH) Time/GCodes Time In: 1131 Time Out: 1142 Total Billed Treatment Time: 11 Total Billed Treatment 1 visit EVLowC 11 min G Codes Necessary: FILIBERTO Gordon PT Apr 15, 2018 11:55
[2018-04-15 15:40] VITALS: BP 143/73
[2018-04-15 19:12] VITALS: BP 139/74
[2018-04-15] MEDS: MELATONIN 3 MG TABLET PO PRN (20:03)
[2018-04-15] MEDS: BENZONATATE 100 MG (TESSALON) CAPSULE PO SCH (20:03)
[2018-04-16] VITALS: BP 136/64
[2018-04-16] MEDS: NS IV 1000 ML 1,000 ML IV SCH ×2 (02:12→16:16)
[2018-04-16 04:00] VITALS: BP 137/70
[2018-04-16 05:15] LABS: HEMOGLOBIN 10.9 G/DL (11.5-16.0); MEAN PLATELET VOLUME 9.6 FL (7.4-10.4); RED BLOOD COUNT 3.66 10^6/uL (4.35-5.85); RED CELL DISTRIBUTION WIDTH 14.4 % (10.0-14.5)
[2018-04-16 05:39] LABS: ALANINE AMINOTRANSFERASE 35 U/L (0-55); ALKALINE PHOSPHATASE 141 U/L (40-136); BILIRUBIN,TOTAL 0.3 MG/DL (0.1-1.0); BUN/CREATININE RATIO 8; CALCIUM 9.3 MG/DL (8.5-10.1); CARBON DIOXIDE 28 MMOL/L (21-32); CHLORIDE 104 MMOL/L (98-107); CREATININE SERUM 0.61 MG/DL (0.60-1.30); GFR ESTIMATED > 60; GLUCOSE 82 MG/DL (70-105); POTASSIUM 3.9 MMOL/L (3.6-5.0); SODIUM 139 MMOL/L (135-145); TOTAL PROTEIN 5.7 GM/DL (6.4-8.2)
[2018-04-16] MEDS: KCL 10 MEQ TAB (MICRO K) PO SCH (06:31)
[2018-04-16] MEDS: PANTOPRAZOLE 20 MG TABLET (PROTONIX) PO SCH (06:31)
[2018-04-16] MEDS: fluCOnazole (DIFLUCAN) 100 MG TAB PO SCH (08:23)
[2018-04-16] MEDS: clonazePAM 1 MG (KlonoPIN) TAB PO SCH ×3 (08:23→20:13)
[2018-04-16] MEDS: risperiDONE 0.25 MG (RisperDAL) TAB PO SCH ×2 (08:23→20:13)
[2018-04-16] MEDS: BENZONATATE 100 MG (TESSALON) CAPSULE PO SCH ×3 (08:23→20:13)
[2018-04-16] MEDS: cefTRIAXone 1 GM/NS 50 ML IVPB IV SCH ×2 (08:23)
[2018-04-16] MEDS: amLODIPine 10 MG (NORVASC) TAB PO SCH (08:23)
[2018-04-16 08:31] VITALS: BP 148/68
--- NOTE | 2018-04-16 09:08 | Progress Note ---
Subjective Date Seen by a Provider: Apr 16, 2018 Time Seen by a Provider: 09:00 Subjective/Events-last exam PT ASKING IF SHE CAN GO HOME. SHE STATES THAT SHE FEELS BETTER, HOWEVER SHE IS COUGHING QUITE A BIT, SHE REPORTS THAT SHE THINKS SHE CHOKED ON HER PANCAKE. Review of Systems General: Fatigue HEENT: No Head Aches Pulmonary: Dyspnea, Cough Cardiovascular: No: Chest Pain, Palpitations Gastrointestinal: No: Nausea, Abdominal Pain Genitourinary: No Dysuria Neurological: Weakness, Confusion (INTERMITTENT) Objective Exam Last Set of Vital Signs Vital Signs Date Time Temp Pulse Resp B/P (MAP) Pulse Ox O2 Delivery O2 Flow Rate FiO2 04/16/18 08:31 97.4 85 20 148/68 (94) 95 Nasal Cannula 2.00 Capillary Refill : Less Than 3 Seconds I&O Intake and Output 04/16/18 00:00 Intake Total 700 ml Output Total 1825 ml Balance -1125 ml Intake Oral 700 ml IV Total 0 ml Output Urine Total 1825 ml General: Alert, Oriented X3, Cooperative HEENT: Atraumatic, PERRLA Neck: Supple Lungs: Other (FAINT CRACKLES, RHONCHI ) Heart: Other (TACHYCARDIA) Abdomen: Normal Bowel Sounds, Soft, No Tenderness Extremities: Other (1+EDEMA BILATERAL LOWER EXTREMITIES) Skin: No Rashes Neuro: Normal Speech Psych/Mental Status: Mental Status NL Results Lab Laboratory Tests 04/16/18 05:10: White Blood Count 5.0, Red Blood Count 3.66L, Hemoglobin 10.9L, Hematocrit 34L, Mean Corpuscular Volume 93, Mean Corpuscular Hemoglobin 30, Mean Corpuscular Hemoglobin Concent 32, Red Cell Distribution Width 14.4, Platelet Count 195, Mean Platelet Volume 9.6, Sodium Level 139, Potassium Level 3.9, Chloride Level 104, Carbon Dioxide Level 28, Anion Gap 7, Blood Urea Nitrogen 5L, Creatinine 0.61, Estimat Glomerular Filtration Rate > 60, BUN/Creatinine Ratio 8, Glucose Level 82, Calcium Level 9.3, Corrected Calcium 10.1, Total Bilirubin 0.3, Aspartate Amino Transf (AST/SGOT) 24, Alanine Aminotransferase (ALT/SGPT) 35, Alkaline Phosphatase 141H, Total Protein 5.7L, Albumin 3.0L Microbiology 04/13/18 Blood Culture - Preliminary, Resulted No growth 04/14/18 Influenza Types A,B Antigen (BRIAN) - Final, Complete 04/13/18 Urine Culture - Final, Complete YEAST Assessment/Plan Assessment/Plan Assess & Plan/Chief Complaint SEPSIS URINARY TRACT INFECTION DUE TO YEAST INFECTION CONFUSION FEVER TACHYCARDIA ELEVATED LIVER ENZYMES DEMENTIA COUGH DYSPNEA SEPSIS WITH FEVER DUE TO URINARY TRACT INFECTION - LACTIC ACID NOT ELEVATED - PT ON DIFLUCAN FOR YEAST IN URINE FLU SWAB NEGATIVE CONFUSION - IMPROVING CONTINUE WITH RE-ORIENTATION AND SUPPORTIVE CARE AT THIS TIME - PART OF PROBLEM IS BASELINE MILD DEMENTIA WITH INFECTION LEADING TO MORE CONFUSION. TACHYCARDIA - CONTINUE WITH METOPROLOL. ELEVATED LIVER ENZYMES - DUE TO SEPSIS WITH SHOCK AT HOME - IMPROVED WITH HYDRATION. REPEAT LABS CONTINUE TO IMPROVE. COUGH AND DYSPNEA - CONTINUE WITH OXYGEN - SPEECH EVALUATION - TO BE DONE TODAY TO SEE IF WE NEED TO MODIFY HER DIET. Clinical Quality Measures DVT/VTE Risk/Contraindication: Risk Factor Score Per Nursin RFS Level Per Nursing on Admit: 4+=Very High SHELLIE OLIVIER MD Apr 16, 2018 09:08
--- NOTE | 2018-04-16 10:35 | ST Dysphagia Evaluation ---
Speech Evaluation-General Medical Diagnosis UTI/sepsis Onset Date: Apr 13, 2018 Therapy Diagnosis Therapy Diagnosis: Oropharyngeal Dysphagia Precautions Precautions/Isolations: Fall Prevention, Standard Precautions Medical History Pertinent Medical History: Arthritis, Dementia, HTN Reviewed History: Yes Social History Current Living Status: Other Family Speech PLF/Current-Dysphagia Prior Level of Function Patient lived with other family for support of daily needs. Subjective Patient was pleasant and cooperative with evaluation. Patient exhibits confusion and [place]ICK[place] RANCH. Cognitive Status Patient Orientation: Person Oral Motor Skills Denture Type: Full- Upper Current Food Consistancy: Mechanical Soft, Thin Liquids Oral Expression Ability: No Impairment Voice Voice Phonatory-Based Quality: Hoarse Voice Pitch: Mildly Low Voice Loudness: Mildly Soft/Quiet Face Facial Symmetry: Symmetrical Oral-Facial Assessment Oral-Facial Dentition: Normal Labial Seal Description: Normal Smile: Normal Puff Cheeks: Reduced Strength Lingual Protrusion: Normal Lingual ROM: Normal Lingual Strength: Normal Gag Reflex Response: Normal Pharynx Velopharyngeal Move.: Normal Volitional Dry Swallow: Yes Voluntary Cough: Yes Can Clear Throat Volitionally: Yes Productive Cough: No Dysphagia Evaluation Consistencies Presented: Regular, Thin Liquid, Mechanical Soft, Pureed Funct. Velo/Pharyngeal Symptom: Cough After Swallow Patient exhibits a continuous cough from illness. Dietary Recommendations: Regular Liquid Recommendations: Thin Swallowing Precautions: Alternate Liquids/Solids, Decreased Bolus 1/2 Tsp, Liquids from Straw, Small Bites and Sips, Sitting Upright 90 Degrees, Sitting 90 Degrees 30 Post Intake Patient stated she choked on a pancake earlier, however during the evaluation process no s/s of aspiration were exhibited. Dysphagia Evaluation Summary Patient is an 87 year old female who presented to the ED with sepsis, UTI and a cough. Patient is noted to have dementia. She was able to answer questions during the evaluation process with fair validity. Patient was presented regular , mechanical soft and puree consistencies of food. She demonstrated adequate swallow onset without oral residue noted. Thin liquids provided via straw without difficulty. Patient able to follow directives of small sips/bites with no difficulty. Patient has a frequent cough related to current illness. No overt s/s of aspiration were noted at this time. Barriers to Learning Dementia Speech Short Term Goals Short Term Goals Short Term Goals 1) Patient will demonstrate understanding and consistent use of dysphagia guidelines and compensatory strategies with 80% or greater accuracy. 2) Patient will tolerate least restrictive diet without signs/symptoms of aspiration with 80% or greater accuracy. Speech Clean Up Helper Banquet Goals Clean Up Helper Banquet Goals Patient will maintain adequate nutrition/hydration via safe effective swallow function. Speech-Plan Patient/Family Goals Patient/Family Goals: Patient plans to return home with family support for daily needs. Treatment Plan Speech Therapy Treatment Plan: Continue Plan of Care Patient is recommended for dysphagia therapy with focus on safety of oral intake. Treatment Duration: Apr 16, 2018 Frequency: 5 times per week Estimated Hrs Per Day: .25 hour per day Rehab Potential: Guarded Barriers to Learning: Dementia Pt/Family Agrees to Plan: Yes Safety Risks/Education Teaching Recipient: Patient Teaching Methods: Discussion Response to Teaching: Verbalize Understanding Education Topics Provided: Compensatory strategy training Time Speech Therapy Time In: 09:35 Speech Therapy Time Out: 09:50 Total Billed Time: 15 Billed Treatment Time [address] Apr 16, 2018 10:35
[2018-04-16 11:25] VITALS: BP 125/61
--- NOTE | 2018-04-16 12:06 | Physical Therapy Daily Note ---
PT Daily Note-Current Subjective Pt laying Supine in bed upon arrival. Pt is [place] and confused. Pt is tearful and worried about not leaving hospital. Mental Status Patient Orientation: Person, Confused, Place Attachments: Oxygen, Mcguire Catheter, IV Transfers Therapy Code Descriptions/Definitions Functional [place] Measure: 0=Not Assessed/NA 4=Minimal Assistance 1=Total Assistance 5=Supervision or Setup 2=Maximal Assistance 6=Modified [place] 3=Moderate Assistance 7=Complete [place] Therapy Quality Codes: 6 Independent with activity with or without an assistive device 5 Patient requires set up or clean up by helper. Patient completes activity by themselves 4 Supervision or touching assist (CGA). [place] provide cues , steadying assist 3 The helper provides less than half the effort to complete the activity 2 The helper provides more than half the effort to complete the activity 1 Dependent. The helper does all the effort to complete an activity 7 Patient refused to complete or attempt activity 9 The patient did not perform the activity before the current illness or injury 88 Not attempted due to Medical conditions or safety concerns Weight Bearing Right Lower Extremity: Right Full Weight Bearing Left Lower Extremity: Left Full Weight Bearing Exercises Supine Ex: Ankle pumps, Heel Slides Supine Reps: 10 Treatments Pt is very tearful and MOPPER tries to address concerns and help anxiety. Pt completes limited Supine Ex due to preoccupation with Sp that had passed and concern with her own passing. Assessment Current Status: Fair Progress Pt is very confused and anxious which limits participation. PT Lockstitch Waistband Setter Goals Lockstitch Waistband Setter Goals PT Lockstitch Waistband Setter Goals Time Frame: Apr 19, 2018 Transfers (B,C,W/C) (FIM): 2 PT Plan Problem List Problem List: Activity Tolerance, Functional Strength, Safety, Balance, Gait, Transfer Treatment/Plan Treatment Plan: Continue Plan of Care Treatment Plan: Bed Mobility, Education, Functional Activity [place], Functional Strength, Safety, Therapeutic Exercise, Transfers Treatment Duration: Apr 19, 2018 Frequency: 5 times per week Estimated Hrs Per Day: .25 hour per day Patient and/or Family Agrees t: Yes Safety Risks/Education Patient Education: Correct Positioning, Safety Issues Teaching Recipient: Patient Teaching Methods: Discussion Response to Teaching: Reinforcement Needed Time/GCodes Time In: 1130 Time Out: 1145 Total Billed Treatment Time: 15 Total Billed Treatment 1, FA (15m) G Codes Necessary: MARIA FERNANDA Weber MOPPER Apr 16, 2018 12:06
[2018-04-16 15:25] VITALS: BP 141/62
[2018-04-16 19:40] VITALS: BP 143/67
[2018-04-16] MEDS: MELATONIN 3 MG TABLET PO PRN (20:13)
[2018-04-16] MEDS: LORazepam INJ 2 MG/ML (ATIVAN) VIAL IVP PRN (22:41)
[2018-04-17] VITALS: BP 138/68
[2018-04-17] MEDS: HALOPERIDOL 5 MG/ML (HALDOL) AMP IM PRN ×2 (01:08→05:09)
[2018-04-17] MEDS: LORazepam INJ 2 MG/ML (ATIVAN) VIAL IVP PRN (03:02)
[2018-04-17] MEDS: KCL 10 MEQ TAB (MICRO K) PO SCH (06:05)
[2018-04-17] MEDS: PANTOPRAZOLE 20 MG TABLET (PROTONIX) PO SCH (06:05)
[2018-04-17 06:06] LABS: ALANINE AMINOTRANSFERASE 31 U/L (0-55); ALBUMIN 3.4 GM/DL (3.2-4.5); ALKALINE PHOSPHATASE 156 U/L (40-136); BILIRUBIN,TOTAL 0.4 MG/DL (0.1-1.0); BUN/CREATININE RATIO 10; CALCIUM 9.5 MG/DL (8.5-10.1); CARBON DIOXIDE 27 MMOL/L (21-32); CHLORIDE 102 MMOL/L (98-107); CREATININE SERUM 0.61 MG/DL (0.60-1.30); GFR ESTIMATED > 60; GLUCOSE 104 MG/DL (70-105); POTASSIUM 3.7 MMOL/L (3.6-5.0); SODIUM 139 MMOL/L (135-145); TOTAL PROTEIN 6.6 GM/DL (6.4-8.2)
[2018-04-17 08:01] VITALS: BP 166/76
[2018-04-17] MEDS: cefTRIAXone 1 GM/NS 50 ML IVPB IV SCH ×2 (08:32)
[2018-04-17] MEDS: amLODIPine 10 MG (NORVASC) TAB PO SCH (08:33)
[2018-04-17] MEDS: risperiDONE 0.25 MG (RisperDAL) TAB PO SCH (08:33)
[2018-04-17] MEDS: clonazePAM 1 MG (KlonoPIN) TAB PO SCH ×2 (08:33→12:53)
[2018-04-17] MEDS: fluCOnazole (DIFLUCAN) 100 MG TAB PO SCH (08:34)
[2018-04-17] MEDS: BENZONATATE 100 MG (TESSALON) CAPSULE PO SCH ×2 (08:34→12:53)
[2018-04-17] MEDS ORDERED: FLUC100T6 PO (10:35)
--- NOTE | 2018-04-17 10:41 | D/C HH Face to Face Order ---
D/C Face to Face Orders Instructions for Patient Via [facility], Patient Instructions/FollowUp: [address] [facility] Physician to follow Patient: maria c Discharge Diet for Home: Regular Diet Patient Problems: yeast urinary tract infection hypertension chronic pain syndrome Patient Data-Allergies,Ht & Wt Patient Allergies: Coded Allergies: Penicillins (Unverified Allergy, Severe, EDEMA, 04/13/18) Height (Feet): 5 Height (Inches): 6.00 Weight (Pounds): 143 Weight (Ounces): 9.0 Home Health Need/Face to Face Date of Face to Face: Apr 17, 2018 Clinical Findings: Generalized weakness and fatigue, Muscle weakness, Unsteady gait I have seen Pt [id number]: Yes Discharged To: Home Diagnosis/Conditions: SEPSIS URINARY TRACT INFECTION CONFUSION FEVER TACHYCARDIA ELEVATED LIVER ENZYMES DEMENTIA COUGH DYSPNEA Patient is Homebound due to: CognItive deficits, Alex fall risk due to instabilty, Muscle weakness Homebound Status Due to the above stated illness, injury or surgical procedure (medical condition or diagnosis) and associated clinical findings, the patient is homebound because of his/her inability to leave home except with aid of a supportive device and/or person AND leaving the home requires a considerable and taxing effort or is medically contraindicated. Pt req the following assistanc: Aid of another person Home Health Nursing Orders Home Health Services Order: Nursing Services, Physical Therapy-Evaluate & Treat Home Health Infusion Therapy Line Start Date: Apr 13, 2018 Line Type: Central Line Site Location: [place] Internal Certify Stmt I certify that this patient is under my care and that I, a nurse practitioner or a physician; a assistant in nursing working with me, had a face to face encounter that - meets the physician face to face encounter requirements with this patient as dated. SHELLIE OLIVIER MD Apr 17, 2018 10:41
--- NOTE | 2018-04-17 10:54 | Discharge Summary ---
Diagnosis/Chief Complaint Date of Admission Apr 13, 2018 at 11:45 Date of Discharge Discharge Date: Apr 17, 2018 Discharge Time: 1100 Admission Diagnosis Admission Diagnosis SEPSIS URINARY TRACT INFECTION DUE TO YEAST INFECTION CONFUSION FEVER TACHYCARDIA ELEVATED LIVER ENZYMES DEMENTIA COUGH DYSPNEA Discharge Diagnosis SEPSIS URINARY TRACT INFECTION DUE TO YEAST INFECTION CONFUSION FEVER TACHYCARDIA ELEVATED LIVER ENZYMES DEMENTIA COUGH DYSPNEA Reason Hospital Visit This is an 87-year-old white female clinic patient of Dr. Davenport who lives at home but came to the ER with confusion found to have UTI and hyponatremia with low-grade fever tachycardia and criteria met for sepsis. She is confused now cannot give me any details whatsoever so I try to compile information for this dictation from prior records. She thinks that she needs to go to work tomorrow and she is 87 years old and obviously demented. Discharge Summary Discharge Physical Examination Allergies: Coded Allergies: Penicillins (Unverified Allergy, Severe, EDEMA, 04/13/18) Vitals & I&Os Vital Signs Date Time Temp Pulse Resp B/P (MAP) Pulse Ox O2 Delivery O2 Flow Rate FiO2 04/17/18 08:01 98.0 115 20 166/76 (106) 93 Nasal Cannula 2.00 General Appearance: Alert, Oriented X3, Cooperative HEENT: Atraumatic, PERRLA Respiratory: Other (FAINT CRACKLES, RHONCHI ) Cardiovascular: Other (TACHYCARDIA) Abdominal: Normal Bowel Sounds, Soft, No Tenderness Extremities: No Clubbing, No Cyanosis Skin: No Rashes Neuro: Normal Speech Psych/Mental Status: Mental Status NL Hospital Course SEPSIS URINARY TRACT INFECTION DUE TO YEAST INFECTION CONFUSION FEVER TACHYCARDIA ELEVATED LIVER ENZYMES DEMENTIA COUGH DYSPNEA SEPSIS WITH FEVER DUE TO URINARY TRACT INFECTION - LACTIC ACID NOT ELEVATED - PT ON DIFLUCAN FOR YEAST IN URINE - WILL NEED FOR 5 MORE DAYS POST - DISCHARGE TO HOME. FLU SWAB NEGATIVE CONFUSION - IMPROVING CONTINUE WITH RE-ORIENTATION AND SUPPORTIVE CARE AT THIS TIME - PART OF PROBLEM IS BASELINE MILD DEMENTIA WITH INFECTION LEADING TO MORE CONFUSION. I HAVE DISCUSSED WITH HER DAUGHTER - SHE HAS DELIRIUM - THIS SHOULD IMPROVE WHEN SHE IS BACK TO HER HOME ENVIRONMENT. TACHYCARDIA - CONTINUE WITH METOPROLOL. ELEVATED LIVER ENZYMES - DUE TO SEPSIS WITH SHOCK AT HOME - IMPROVED WITH HYDRATION. REPEAT LABS CONTINUE TO IMPROVE - ALT/AST BACK TO NORMAL, ALK PHOS IS IMPROVED - ALMOST NORMAL. COUGH AND DYSPNEA - CONTINUE WITH OXYGEN - SPEECH EVALUATION - SHOWED NO ABNORMALITIES WITH SWALLOWING. DISCHARGE TO HOME TODAY WITH HER DAUGHTER - VIA [facility] TO BE ORDERED UPON DISCHARGE. Pending Labs Laboratory Tests 04/17/18 05:25: Sodium Level 139, Potassium Level 3.7, Chloride Level 102, Carbon Dioxide Level 27, Anion Gap 10, Blood Urea Nitrogen 6, Creatinine 0.61, Estimat Glomerular Filtration Rate > 60, BUN/Creatinine Ratio 10, Glucose Level 104, Calcium Level 9.5, Corrected Calcium 10.0, Total Bilirubin 0.4, Aspartate Amino Transf (AST/ SGOT) 23, Alanine Aminotransferase (ALT/SGPT) 31, Alkaline Phosphatase 156, Total Protein 6.6, Albumin 3.4 Discharge Condition at discharge IMPROVING Instructions to patient/family Please see electronic discharge instructions given to patient. Discharge Medications Reviewed and agree with Discharge Medication list on patient's Discharge Instruction sheet Clinical Quality Measures DVT/VTE Risk/Contraindication: Risk Factor Score Per Nursin RFS Level Per Nursing on Admit: 4+=Very High SHELLIE DAVENPORT MD Apr 17, 2018 10:54
[2018-04-17 11:40] VITALS: BP 171/75
[2018-04-17 17:00] VITALS: BP 171/75
== END 2018-04-17 16:55 | disposition home health service (06) | DRG 872 ==
LOC: EDUNIT# 06:08 → ER 06:12 → UNDOADMOB 07:41 → 4TH 07:41 → OBSVTOIN 11:45 → INTOOBSV 11:45 → OBSVTOIN 11:49 → 4TH 04-15 14:00 → UNDODISIN 04-17 16:55
PROVIDERS: ADMIT Internal Medicine; ATTEND Family Medicine
PROC: 02HV33Z Insertion of Infusion Device into Superior Vena Cava, Percutaneous Approach (ICD-10-PCS; principal; 2018-04-13)
DX: A41.9 Sepsis, unspecified organism (principal); B37.49 Other urogenital candidiasis; F05 Delirium due to known physiological condition; F03.90 Unspecified dementia, unspecified severity, without behavioral disturbance, psychotic disturbance, mood disturbance, and anxiety; R64 Cachexia; E87.1 Hypo-osmolality and hyponatremia; I10 Essential (primary) hypertension; R74.8 Abnormal levels of other serum enzymes; Z66 Do not resuscitate; Z97.4 Presence of external hearing-aid; R53.1 Weakness; F41.9 Anxiety disorder, unspecified; R63.0 Anorexia; E78.00 Pure hypercholesterolemia, unspecified; M81.0 Age-related osteoporosis without current pathological fracture; M19.91 Primary osteoarthritis, unspecified site; F32.9 Major depressive disorder, single episode, unspecified; Z86.718 Personal history of other venous thrombosis and embolism
CPT/HCPCS: 36415; 51702; 71045; 71046; 80048; 80053; 81000; 83605; 85025; 85027; 87040; 87088; 87804; 90471; 90686; 96365; G0378

== ENCOUNTER 2018-09-19 14:49 | Emergency (ER) | payer MEDICARE ==
[~2018-09-19] VITALS: Ht 167.6 cm; Wt 59.0 kg
[~2018-09-19 14:49] MED LIST changes: +ACET-2267 PO; -AMLO10TA6 PO; +AMLO10TA7 PO; +BISA5TAB8 PO; +CITA40TA11 PO; +CRAN1CAP7 PO; +DOXY100T2 PO; +FLUC100T PO; +FLUC100T6 PO; +MELA5CAP PO; +PEDI1TAB29 PO; +PEDI1TAB30 PO
[2018-09-19] MEDS ORDERED: NS IV 1000 ML 1,000 ML IV SCH (14:58)
[2018-09-19 15:08] LABS: BASOPHILS % (AUTO) 0 % (0-10); EOSINOPHILS # (AUTO) 0.1 10^3/uL (0.0-0.3); EOSINOPHILS % (AUTO) 1 % (0-10); HEMATOCRIT 39 % (35-52); HEMOGLOBIN 12.9 G/DL (11.5-16.0); LYMPHOCYTES # (AUTO) 1.2 X 10^3 (1.0-4.0); LYMPHOCYTES % (AUTO) 10 % (12-44); MEAN CORPUSCULAR HEMOGLOBIN 29 PG (25-34); MEAN CORPUSCULAR HGB CONC 33 G/DL (32-36); MEAN CORPUSCULAR VOLUME 88 FL (80-99); MEAN PLATELET VOLUME 10.4 FL (7.4-10.4); MONOCYTES # (AUTO) 1.3 X 10^3 (0.0-1.0); MONOCYTES % (AUTO) 11 % (0-12); NEUTROPHILS % (AUTO) 78 % (42-75); PLATELET COUNT 281 10^3/uL (130-400); RED CELL DISTRIBUTION WIDTH 14.4 % (10.0-14.5); WHITE BLOOD COUNT 11.6 10^3/uL (4.3-11.0)
[2018-09-19] MEDS ORDERED: ACETAMINOPHEN 325 MG TABLET PO STA (15:08)
[2018-09-19 15:20] LABS: BILIRUBIN,URINE NEGATIVE (NEGATIVE); CLARITY,URINE SLIGHTLY CLOUDY; COLOR,URINE YELLOW; GLUCOSE, URINE (UA) NEGATIVE (NEGATIVE); KETONES,URINE NEGATIVE (NEGATIVE); LEUKOCYTE ESTERASE ,URINE 3+ (NEGATIVE); NITRITE,URINE NEGATIVE (NEGATIVE); PH,URINE 6 (5-9); PROTEIN,URINE 2+ (NEGATIVE); UROBILINOGEN,URINE NORMAL (NORMAL)
[2018-09-19 15:27] LABS: PROTHROMBIN TIME PATIENT 14.1 SEC (12.2-14.7)
[2018-09-19 15:30] LABS: ALANINE AMINOTRANSFERASE 8 U/L (0-55); ALBUMIN 3.7 GM/DL (3.2-4.5); ALKALINE PHOSPHATASE 71 U/L (40-136); BILIRUBIN,TOTAL 0.6 MG/DL (0.1-1.0); BUN/CREATININE RATIO 20; CALCIUM 10.3 MG/DL (8.5-10.1); CARBON DIOXIDE 26 MMOL/L (21-32); CHLORIDE 96 MMOL/L (98-107); CREATININE SERUM 0.87 MG/DL (0.60-1.30); GFR ESTIMATED > 60; GLUCOSE 109 MG/DL (70-105); POTASSIUM 5.1 MMOL/L (3.6-5.0); SODIUM 129 MMOL/L (135-145); TOTAL PROTEIN 7.4 GM/DL (6.4-8.2)
[2018-09-19 15:32] LABS: BACTERIA,URINE LARGE /HPF; RBC,URINE RARE /HPF; WBC,URINE TNTC /HPF
--- NOTE | 2018-09-19 15:47 | Diagnostic Imaging Report ---
INDICATION: Fever and altered mental status. TIME OF EXAM: 03:30 p.m. Correlation is made with prior chest from 08/29/2018. FINDINGS: The heart size is stable. The pulmonary vascularity is unremarkable. No failure is seen. There is mild linear density in the left base adjacent to the left heart border. This may represent minimal infiltrate or atelectasis. Right lung is clear. There is no effusion. No pneumothorax is seen. IMPRESSION: Minimal infiltrate or atelectasis left base. Dictated by: Dictated on workstation # [id number]
--- NOTE | 2018-09-19 16:05 | ED General ---
General Chief Complaint: Fever-Adult/Adol Stated Complaint: FEVER;AMS History of Present Illness Date Seen by Provider: September 19, 2018 Time Seen by Provider: 14:50 Initial Comments 87-year-old female presents via EMS for altered mental status, agitation, aggressive behavior, and concerns over repeat urinary tract infection. She was admitted here from August 29- for similar symptoms and pneumonia. She was discharged in completed a round of Diflucan and Doxycycline. She lives at home with max assist from family. She uses oxygen per NC at home when sleeping, requiring oxygen now to maintain SaO2 > 90% at 4 L. Timing/Duration: 4-6 Hours Severity: Mild Associated Systoms: Fever/Chills, Weakness Allergies and Home Medications Allergies Coded Allergies: Penicillins (Unverified Allergy, Severe, EDEMA, 04/13/18) Home Medications Acetaminophen 500 Mg Tablet, 500 MG PO Q4H PRN for PAIN-MILD, (Reported) Amlodipine Besylate 10 Mg Tablet, 10 MG PO 0630, (Reported) Bisacodyl 5 Mg Tablet.dr, 5 MG PO DAILY PRN for CONSTIPATION-4TH LINE, (Reporte d) Cholecalciferol (Vitamin D3) 1,000 Unit Capsule, 2,000 UNIT PO 1530, (Reported) TAKES 2 (1000 UNIT) CAPSULES Citalopram Hydrobromide 40 Mg Tablet, 40 MG PO 1530, (Reported) Clonazepam 1 Mg Tablet, 2 MG PO 0630, (Reported) TAKES 2 (1MG) TABLETS Clonazepam 1 Mg Tablet, 1 MG PO 1530, (Reported) Cranberry Conc/Ascorbic Acid 1 Each Capsule, 2 CAP PO 1530, (Reported) Doxycycline Hyclate 100 Mg Tablet, 100 MG PO BID@07,17 Prescribed by: SHELLIE OLIVIER on 09/01/18 0926 Lisinopril 10 Mg Tablet, 10 MG PO 0630, (Reported) Melatonin 5 Mg Capsule, 5 MG PO 1530, (Reported) Meloxicam 15 Mg Tablet, 15 MG PO 0630, (Reported) Metoprolol Succinate 25 Mg Tab.er.24h, 25 MG PO 0630, (Reported) Omeprazole 20 Mg Capsule.dr, 20 MG PO 0630, (Reported) Pediatric Multivitamin Comb#30 1 Each Tab.chew, 2 TAB.CHEW PO HS, (Reported) Potassium Chloride 10 Meq Tablet.er, 20 MEQ PO 0630, (Reported) TAKES 2 (10MEQ) TABLETS Simvastatin 20 Mg Tablet, 20 MG PO 1530, (Reported) Patient Home Medication List Home Medication List Reviewed: Yes Review of Systems Review of Systems Constitutional: see HPI, fever, weakness, other (confusion) Genitourinary: see HPI, dysuria, frequency, incontinence Psychiatric/Neurological: See HPI, Anxiety, Emotional Problems All Other Systems Reviewed Negative Unless Noted: Yes Past Armptdf-Itgfgn-Vzpdin Hx Past Med/Social Hx: Reviewed Nursing Past Med/Soc Hx Patient Social History 2nd Hand Smoke Exposure: No Recent Hopitalizations: No Immunizations Up To Date Tetanus Booster (TDap): Unknown PED Vaccines UTD: No Date of Pneumonia Vaccine: Jan 27, 2014 Date of Influenza Vaccine: Jan 27, 2014 Seasonal Allergies Seasonal Allergies: No Past Medical History Surgeries: Yes Eye Surgery, Gallbladder, Joint Replacement, Orthopedic Respiratory: No Currently Using CPAP: No Currently Using BIPAP: No Cardiac: Yes Deep Vein Thrombosis, High Cholesterol, Hypertension Neurological: No Dementia Reproductive Disorders: No Genitourinary: Yes UTI-Chronic Gastrointestinal: No Musculoskeletal: Yes Degenerate Disk Disease, Osteoporosis, Arthritis, Fractures Endocrine: No HEENT: Yes Cataract Loss of Vision: Denies Hearing Impairment: Bilateral Hearing Aide Cancer: No Psychosocial: Yes Anxiety, Depression Integumentary: No Blood Disorders: No Adverse Reaction/Blood Tranf: No Family Medical History Myocardial infarction 19 MOTHER, Onset:60 years & older Heart Disease, Hypertension Physical Exam Vital Signs Vital Signs - First Documented Capillary Refill : Height, Weight, BMI Height: 5'6.00" Weight: 134lbs. 0.0oz. [id number]; 21.6 BMI Method:Stated General Appearance: No Apparent Distress, Anxious Eyes: Bilateral Eye Normal Inspection, Bilateral Eye PERRL HEENT: TMs Normal, Normal ENT Inspection, Pharynx Normal Neck: Full Range of Motion, Normal Inspection, Non Tender, Supple Respiratory: Chest Non Tender, Lungs Clear, Decreased Breath Sounds Cardiovascular: Regular Rate, Rhythm, Normal Peripheral Pulses Gastrointestinal: Normal Bowel Sounds, Non Tender, Soft Extremity: Normal Capillary Refill, Normal Inspection, Normal Range of Motion, Non Tender, Other (or deformity noted to right elbow, chronic from previous surgeries) Neurologic/Psychiatric: Alert, No Motor/Sensory Deficits, Normal Mood/Affect (appropriate for age and history of dementia), Other (oriented to person and place) Skin: Normal Color, Warm/Dry, Diaphoresis Focused Exam Lactate Level 09/19/18 15:00: Lactic Acid Level 0.78 Lactic Acid Level Progress/Results/Core Measures Suspected Sepsis Recent Fever Within 48 Hours: Yes Infection Criteria Present: Suspected New Infection New/Unexplained Altered Menta: Yes Within 3hrs of presentation: Admin fluids, Admin 30ml/kg IBW due to BMI>30, Admin ABX, Blood cultures prior to ABX's, Focus exam, Lactate level SIRS Temperature: Pulse: Respiratory Rate: Laboratory Tests 09/19/18 15:00: White Blood Count 11.6H Blood Pressure / Mean: 09/19/18 15:00: Lactic Acid Level 0.78 Laboratory Tests 09/19/18 15:00: Creatinine 0.87, INR Comment 1.0, Platelet Count 281, Total Bilirubin 0.6 Results/Orders Lab Results Laboratory Tests Test 09/19/18 15:00 09/19/18 15:10 Range/Units White Blood Count 11.6 H 4.3-11.0 10^3/uL Red Blood Count 4.46 4.35-5.85 10^6/uL Hemoglobin 12.9 11.5-16.0 G/DL Hematocrit 39 35-52 % Mean Corpuscular Volume 88 80-99 FL Mean Corpuscular Hemoglobin 29 25-34 PG Mean Corpuscular Hemoglobin Concent 33 32-36 G/DL Red Cell Distribution Width 14.4 10.0-14.5 % Platelet Count 281 130-400 10^3/uL Mean Platelet Volume 10.4 7.4-10.4 FL Neutrophils (%) (Auto) 78 H 42-75 % Lymphocytes (%) (Auto) 10 L 12-44 % Monocytes (%) (Auto) 11 0-12 % Eosinophils (%) (Auto) 1 0-10 % Basophils (%) (Auto) 0 0-10 % Neutrophils # (Auto) 9.0 H 1.8-7.8 X 10^3 Lymphocytes # (Auto) 1.2 1.0-4.0 X 10^3 Monocytes # (Auto) 1.3 H 0.0-1.0 X 10^3 Eosinophils # (Auto) 0.1 0.0-0.3 10^3/uL Basophils # (Auto) 0.0 0.0-0.1 10^3/uL Prothrombin Time 14.1 12.2-14.7 SEC INR Comment 1.0 0.8-1.4 Activated Partial Thromboplast Time 31 24-35 SEC Sodium Level 129 L 135-145 MMOL/L Potassium Level 5.1 H 3.6-5.0 MMOL/L Chloride Level 96 L 98-107 MMOL/L Carbon Dioxide Level 26 21-32 MMOL/L Anion Gap 7 5-14 MMOL/L Blood Urea Nitrogen 17 7-18 MG/DL Creatinine 0.87 0.60-1.30 MG/DL Estimat Glomerular Filtration Rate > 60 BUN/Creatinine Ratio 20 Glucose Level 109 H 70-105 MG/DL Lactic Acid Level 0.78 0.50-2.00 MMOL/L Calcium Level 10.3 H 8.5-10.1 MG/DL Corrected Calcium 10.5 H 8.5-10.1 MG/DL Total Bilirubin 0.6 0.1-1.0 MG/DL Aspartate Amino Transf (AST/SGOT) 17 5-34 U/L Alanine Aminotransferase (ALT/SGPT) 8 0-55 U/L Alkaline Phosphatase 71 40-136 U/L Total Protein 7.4 6.4-8.2 GM/DL Albumin 3.7 3.2-4.5 GM/DL Urine Color YELLOW Urine Clarity SLIGHTLY CLOUDY Urine pH 6 5-9 Urine Specific [place] 1.015 L 1.016-1.022 Urine Protein 2+ H NEGATIVE Urine Glucose (UA) NEGATIVE NEGATIVE Urine Ketones NEGATIVE NEGATIVE Urine Nitrite NEGATIVE NEGATIVE Urine Bilirubin NEGATIVE NEGATIVE Urine Urobilinogen NORMAL NORMAL MG/DL Urine Leukocyte Esterase 3+ H NEGATIVE Urine RBC (Auto) 4+ H NEGATIVE Urine RBC RARE /HPF Urine WBC TNTC H /HPF Urine Squamous Epithelial Cells 10-25 H /HPF Urine Crystals NONE /LPF Urine Bacteria LARGE H /HPF Urine Casts NONE /LPF Urine Mucus MODERATE H /LPF Urine Culture Indicated NO My Orders Orders - JAE MOREAU Cbc With Automated Diff (09/19/18 14:58) Comprehensive Metabolic Panel (09/19/18 14:58) Blood Culture (09/19/18 14:58) Urinalysis (09/19/18 14:58) Urine Culture (09/19/18 14:58) Protime With Inr (09/19/18 14:58) Partial Thromboplastin Time (09/19/18 14:58) Ed Iv/Invasive Line Start (09/19/18 14:58) O2 (09/19/18 14:58) Ns Iv 1000 Ml (Sodium Chloride 0.9%) (09/19/18 14:58) Lactic Acid Analyzer (09/19/18 14:58) Acetaminophen Tablet/Caplet (Tylenol T (09/19/18 15:08) Chest 1 View, Ap/Pa Only (09/19/18 15:23) Ciprofloxacin Iv 400mg/200ml (Cipro Iv S (09/19/18 16:15) Clonazepam Tablet (Klonopin Tablet) (09/19/18 16:30) Medications Given in ED Current Medications Medications Dose Ordered Sig/Lauren Route Start Time Stop Time Status Last Admin Dose Admin Ciprofloxacin/ Dextrose 200 ml @ 200 mls/hr ONCE ONCE IV 09/19/18 16:15 09/19/18 17:14 DC 09/19/18 16:16 200 MLS/HR Clonazepam 1 mg ONCE ONCE PO 09/19/18 16:30 09/19/18 16:31 DC 09/19/18 16:40 1 MG Vital Signs/I&O 09/19/18 09/19/18 09/19/18 14:50 14:50 18:08 Temp 101.7 98.0 Pulse 88 76 Resp 18 18 B/P (MAP) 148/74 (98) 127/68 (87) Pulse Ox 97 95 96 O2 Delivery Nasal Cannula Nasal Cannula Nasal Cannula O2 Flow Rate 2.00 2.00 2.00 Capillary Refill : Progress Note : Time: 14:50 Progress Note Patient seen and evaluated, will obtain labs, normal saline 1 L per IV, chest x- ray, and UA. Tylenol 650 mg orally for fever. 1530 Cipro 400 mg IV for UTI. 1615 Temp 99.4*; Decreased O2 to 2 L, SaO2 maintained at 95% or >. Discussed exam and results of labs/xray [address] Curry, no beds available for admission here, will admit her to [facility]. Family agrees to this plan and will transport her. 1700 Temp 98.0*; Patient alert, but repeats questions. Answers most questions appropriately. SaO2 91-95% on Room Air. Lungs remain CTA, cap refil < 3 sec. Skin Turgor < 2 sec. Patient taking water, orally. Patient's family agreed to transfer her by private conveyance. 1715 SaO2 on RA 88-91%, resumed O2 per NC at 2 L and improved to SaO2 of 92% or >; family would prefer EMS transfer, as they do not have portable oxygen for her. Notified [facility], will transport. 1745 Pt transferred via EMS, SaO2 remained > 90% on O2 per NC. Diagnostic Imaging Diagonstic Imaging: Xray Plain Films/CT/US/NM/MRI: chest Comments NAME: RUFINO COHEN [facility] REC#: [id number] PHYSICIAN: JAE MOREAU CC: DALLAS VENTURA MD; JAE MOREAU Page 1 of 1 RADIOLOGY REPORT [facility]. TEN [place]EP, [place] CC: DALLAS VENTURA MD; JAE MOREAU Page 1 of 1 RADIOLOGY REPORT NAME: RUFINO COHEN [facility] REC#: [id number] PT STATUS: REG ER : 1930 PHYSICIAN: JAE MOREAU ADMIT DATE: 09/19/18/ER Signed Date of Exam: 09/19/18 CHEST 1 VIEW, AP/PA ONLY INDICATION: Fever and altered mental status. TIME OF EXAM: 03:30 p.m. Correlation is made with prior chest from 08/29/2018. FINDINGS: The heart size is stable. The pulmonary vascularity is unremarkable. No failure is seen. There is mild linear density in the left base adjacent to the left heart border. This may represent minimal infiltrate or atelectasis. Right lung is clear. There is no effusion. No pneumothorax is seen. IMPRESSION: Minimal infiltrate or atelectasis left base. Dictated by: Dictated on workstation # [id number] Dict: 09/19/18 1535 Trans: 09/19/18 8893 Interpreted by: DALLSA VENTURA MD Electronically signed by: DALLAS VENTURA MD 09/19/18 [id number] Reviewed: Reviewed/Discussed Departure Impression Primary Impression: Altered mental status Qualified Codes: R41.82 - Altered mental status, unspecified Additional Impressions: UTI (urinary tract infection) Qualified Codes: N30.01 - Acute cystitis with hematuria Dementia Qualified Codes: F03.90 - Unspecified dementia without behavioral disturbance Disposition: 02 XFER SHT-TRM HOSP Condition: Stable Transfer Time Spoke to Accepting Phy: 16:20 Transfer Progress Notes Spoke to Dr. Curry, agreed to patient she is [facility]. Transfer Time: 17:30 Method of Transfer: EMS Departure-Patient Inst. Decision time for Depature: 16:50 Referrals: SHELLIE OLIVIER MD (PCP/Family) Primary Care Physician Copy Copies To 1: SHELLIE OLIVIER MD Copies To 2: NELSON CURRY AMY ARNP September 19, 2018 16:05
[2018-09-19] MEDS ORDERED: CIPROFLOXACIN IV 400MG/200ML 200 ML IV ONE (16:15)
[2018-09-19] MEDS ORDERED: clonazePAM 1 MG (KlonoPIN) TAB PO ONE (16:30)
--- NOTE | 2018-09-19 16:57 | NUR ---
REPORT TO GEORGE BILL AT [facility]
--- NOTE | 2018-09-19 16:59 | NUR ---
TEMP 97.0 AX
--- NOTE | 2018-09-19 17:32 | NUR ---
GEORGE BILL UPDATED ON PT TRANSFER BY EMS
[2018-09-19 18:08] VITALS: BP 127/68
== END 2018-09-19 18:07 | disposition short-term general hospital (02) ==
LOC: EDUNIT# 14:49 → ER 14:50
DX: R41.82 Altered mental status, unspecified (principal); N39.0 Urinary tract infection, site not specified; F03.90 Unspecified dementia, unspecified severity, without behavioral disturbance, psychotic disturbance, mood disturbance, and anxiety; E78.00 Pure hypercholesterolemia, unspecified; I10 Essential (primary) hypertension; F41.9 Anxiety disorder, unspecified; F32.9 Major depressive disorder, single episode, unspecified; M81.0 Age-related osteoporosis without current pathological fracture; Z82.49 Family history of ischemic heart disease and other diseases of the circulatory system; Z87.440 Personal history of urinary (tract) infections; Z88.0 Allergy status to penicillin; Z98.890 Other specified postprocedural states; Z86.718 Personal history of other venous thrombosis and embolism
CPT/HCPCS: 36415; 51702; 71045; 80053; 81000; 83605; 85025; 85610; 85730; 87040; 87088

== ENCOUNTER 2018-10-11 16:53 | Emergency (ER) | payer MEDICARE ==
[~2018-10-11] VITALS: Ht 165.1 cm; Wt 81.6 kg
--- OUTSIDE RECORDS SUMMARY | 2018-10-11 17:01 | XMS REPORT | CCD ---
Author Author Morenita Don MD, [facility] Address [address] [place] [address] Phone Care Team Providers Care Imaging Tech Name Role Phone PP Unavailable CCM Unavailable Summary Purpose Interface Exchange Insurance Providers Payer name Policy type / Coverage type Covered republican ID Effective Begin Date Effective End Date [employer] Medicare Part B [id number] 2016 Unknown [employer] Medicare Part B [id number] Unknown Family history Father Diagnosis Age At Onset Myocardial infarction Unknown Mother Diagnosis Age At Onset Myocardial infarction Unknown Social History Social History Element Codes Description Effective Dates Marital status Unknown 11/29/2015 Number of children Unknown 2 son at 3hrs old 11/29/2015 Employment Unknown Retired 11/29/[address]: 476435548 Never smoker 11/29/[address]: 913558982 Never drinks alcohol 11/29/2015 Allergies, Adverse Reactions, Alerts Substance Reaction Codes Entered Date Inactivated Date Status PENICILLINS Unknown 11/29/2015 No Inactive Date Active Past Medical History Illness Codes Condition Status Onset Date Resolved Date Essential (primary) hypertension ICD-9: 401.9 ICD-10: I10 Active 02/27/2016 Unknown Generalized anxiety disorder ICD-9: 300.02 ICD-10: F41.1 Active 02/27/2016 Unknown Pneumonia, unspecified organism ICD-9: 486 ICD-10: J18.9 Active 09/26/2018 Unknown Urinary tract infection, site not specified ICD-9: 599.0 ICD-10: N39.0 Active 09/26/2018 Unknown Slow transit constipation ICD-9: 564.01 ICD-10: K59.01 Active 05/26/2018 Unknown Other insomnia ICD-9: 327.09 ICD-10: G47.09 Active 04/24/2018 Unknown Major depressive disorder, recurrent, 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 Active 02/27/2016 Unknown Unsteadiness on feet ICD- 9: 781.2 ICD-10: R26.81 Active 12/31/2017 Unknown Hypoxemia ICD-9: 799.02 ICD-10: R09.02 Active 10/29/2017 Unknown Sleep related hypoventilation in conditions classified elsewhere ICD-9: 327.26 ICD-10: G47.36 Active 10/29/2017 Unknown Encounter for general adult medical examination without abnormal findings ICD-9: V70.0 ICD-10: Z00.00 Active 08/23/2016 Unknown Mixed hyperlipidemia ICD- 9: 272.2 ICD-10: E78.2 Active 11/28/2015 Unknown Hypertension Unknown Active 08/21/2016 Unknown Gastro-esophageal reflux disease without esophagitis ICD-9: 530.81 ICD-10: K21.9 Active 05/28/2016 Unknown Problems Condition Codes Effective Dates Condition Status Essential (primary) hypertension ICD-9: 401.9 ICD-10: I10 02/27/2016 Active Generalized anxiety disorder ICD-9: 300.02 ICD-10: F41.1 02/27/2016 Active Pneumonia, unspecified organism ICD-9: 486 ICD-10: J18.9 09/26/2018 Active Urinary tract infection, site not specified ICD-9: 599.0 ICD-10: N39.0 09/26/2018 Active Slow transit constipation ICD-9: 564.01 ICD-10: K59.01 05/26/2018 Active Other insomnia ICD-9: 327.09 ICD-10: G47.09 04/24/2018 Active Major depressive disorder, recurrent, 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 02/27/2016 Active Unsteadiness on feet ICD- 9: 781.2 ICD-10: R26.81 12/31/2017 Active Hypoxemia ICD-9: 799.02 ICD-10: R09.02 10/29/2017 Active Sleep related hypoventilation in conditions classified elsewhere ICD-9: 327.26 ICD-10: G47.36 10/29/2017 Active Encounter for general adult medical examination without abnormal findings ICD-9: V70.0 ICD-10: Z00.00 08/23/2016 Active Mixed hyperlipidemia ICD- 9: 272.2 ICD-10: E78.2 11/28/2015 Active Hypertension Unknown 08/21/2016 Active Gastro-esophageal reflux disease without esophagitis ICD-9: 530.81 ICD-10: K21.9 05/28/2016 Active Medications Medication Codes Instructions Start Date Stop Date Status Fill Instructions omeprazole 20 mg capsule,delayed release RxNorm: 403945 1 Capsule(s) PO daily TAKE ONE CAPSULE BY MOUTH ONCE DAILY 09/26/2018 03/24/2019 Active Diflucan 150 mg tablet RxNorm: 300319 1 Tablet(s) PO QW 09/26/2018 10/25/2018 Active metoprolol succinate ER 25 mg tablet,extended release 24 hr RxNorm: 061246 1 Tablet(s) PO daily 09/26/2018 06/22/2019 Active clonazepam 1 mg tablet RxNorm: 673468 1 Tablet(s) PO TID PRN 08/12/2018 11/09/2018 Active Mobic 15 mg tablet RxNorm: 584927 TAKE ONE TABLET BY MOUTH ONCE DAILY 08/11/2018 No Stop Date Active amlodipine 10 mg tablet RxNorm: 862638 TAKE ONE TABLET BY MOUTH ONCE DAILY 08/11/2018 09/25/2018 Inactive lisinopril 10 mg tablet RxNorm: 162078 TAKE ONE TABLET BY MOUTH ONCE DAILY 07/21/2018 09/25/2018 Inactive potassium chloride ER 10 mEq tablet,extended release RxNorm: 682440 TAKE TWO TABLETS BY MOUTH ONCE DAILY 07/01/2018 No Stop Date Active simvastatin 20 mg tablet RxNorm: 896467 TAKE ONE TABLET BY MOUTH ONCE DAILY IN THE EVENING 06/17/2018 No Stop Date Active omeprazole 20 mg capsule,delayed release RxNorm: 189402 TAKE ONE CAPSULE BY MOUTH ONCE DAILY 06/09/2018 09/25/2018 Inactive Miralax 17 gram oral powder packet RxNorm: 642258 1 packet PO every other day 05/26/2018 No Stop Date Active clonazepam 1 mg tablet RxNorm: 882365 1 Tablet(s) PO TID PRN 05/26/2018 08/11/2018 Inactive melatonin 3 mg tablet RxNorm: 705439 1-2 Tablet(s) PO HS PRN 04/24/2018 No Stop Date Active citalopram 40 mg tablet RxNorm: 239611 1 Tablet(s) PO daily 04/24/2018 10/20/2018 Active clonazepam 1 mg tablet RxNorm: 874877 1 Tablet(s) PO TID 04/09/2018 08/11/2018 Inactive citalopram 20 mg tablet RxNorm: 845927 1 Tablet(s) PO daily 01/23/2018 04/23/2018 Inactive metoprolol succinate ER 25 mg tablet,extended release 24 hr RxNorm: 203507 1 Tablet(s) PO daily 01/20/2018 09/25/2018 Inactive citalopram 10 mg tablet RxNorm: 620804 1 Tablet(s) PO daily 12/31/2017 01/22/2018 Inactive clonazepam 1 mg tablet RxNorm: 501227 1 Tablet(s) PO TID 10/09/2017 05/25/2018 Inactive omeprazole 20 mg capsule,delayed release RxNorm: 045872 Capsule(s) TAKE 1 CAPSULE BY MOUTH EVERY DAY 06/03/2017 02/27/2018 Inactive Mobic 15 mg tablet RxNorm: 671247 Tablet(s) 1 TABLET(S) PO DAILY 06/03/2017 02/27/2018 Inactive amlodipine 10 mg tablet RxNorm: 505818 Tablet(s) TAKE 1 TABLET BY MOUTH EVERY DAY 06/03/2017 02/27/2018 Inactive metoprolol succinate ER 25 mg tablet,extended release 24 hr RxNorm: 460054 1 Tablet(s) PO daily 06/03/2017 01/19/2018 Inactive lisinopril 10 mg tablet RxNorm: 521777 Tablet(s) TAKE 1 TABLET BY MOUTH EVERY DAY 06/03/2017 02/27/2018 Inactive Lexapro 20 mg tablet RxNorm: 516322 1 Tablet(s) PO QPM 06/03/2017 12/30/2017 Inactive clonazepam 1 mg tablet RxNorm: 234574 1 Tablet(s) PO TID 06/03/2017 10/08/2017 Inactive potassium chloride ER 10 mEq tablet,extended release RxNorm: 383948 Tablet(s) TAKE 2 TABLETS BY MOUTH EVERY DAY 06/03/2017 02/27/2018 Inactive simvastatin 20 mg tablet RxNorm: 211321 Tablet(s) 1 TABLET(S) PO QPM 06/03/2017 02/27/2018 Inactive Mobic 15 mg tablet RxNorm: 819433 1 TABLET(S) PO DAILY 04/23/2017 06/02/2017 Inactive lisinopril 10 mg tablet RxNorm: 033519 TAKE 1 TABLET BY MOUTH EVERY DAY 04/05/2017 06/02/2017 Inactive metoprolol succinate ER 25 mg tablet,extended release 24 hr RxNorm: 368797 1 Tablet(s) PO daily 02/01/2017 06/02/2017 Inactive Lexapro 20 mg tablet RxNorm: 581555 1 Tablet(s) PO QPM TAKE 1 TABLET BY MOUTH EVERY EVENING 02/01/2017 02/01/2017 Inactive Lexapro 20 mg tablet RxNorm: 387284 1 Tablet(s) PO QPM 1 TABLET(S) PO QPM TAKE 1 TABLET BY MOUTH EVERY EVENING 02/01/2017 06/02/2017 Inactive Patient requests 90 days supply clonazepam 1 mg tablet RxNorm: 385379 1 Tablet(s) PO TID 02/01/2017 06/02/2017 Inactive Lexapro 20 mg tablet RxNorm: 099237 1 Tablet(s) PO QPM 1 TABLET(S) PO QPM TAKE 1 TABLET BY MOUTH EVERY EVENING 02/01/2017 01/31/2017 Inactive Patient requests 90 days supply metoprolol succinate ER 25 mg tablet,extended release 24 hr RxNorm: 114613 1 Tablet(s) PO daily 02/01/2017 01/31/2017 Inactive amlodipine 10 mg tablet RxNorm: 524021 TAKE 1 TABLET BY MOUTH EVERY DAY 01/15/2017 06/02/2017 Inactive potassium chloride ER 10 mEq tablet,extended release RxNorm: 920709 TAKE 2 TABLETS BY MOUTH EVERY DAY 12/04/2016 06/02/2017 Inactive Lexapro 20 mg tablet RxNorm: 717925 TAKE 1 TABLET BY MOUTH EVERY EVENING 11/12/2016 01/31/2017 Inactive omeprazole 20 mg capsule,delayed release RxNorm: 094387 TAKE 1 CAPSULE BY MOUTH EVERY DAY 10/29/2016 10/28/2016 Inactive omeprazole 20 mg capsule,delayed release RxNorm: 400936 TAKE 1 CAPSULE BY MOUTH EVERY DAY 10/29/2016 06/02/2017 Inactive L-Methylfolate 15 mg tablet RxNorm: 1 Tablet(s) PO daily 10/08/2016 01/31/2017 Inactive clonazepam 1 mg tablet RxNorm: 111981 1 Tablet(s) PO BID 08/31/2016 01/31/2017 Inactive L-Methylfolate 15 mg tablet RxNorm: 1 Tablet(s) PO daily 08/28/2016 10/07/2016 Inactive lisinopril 20 mg tablet RxNorm: 086728 1 Tablet(s) PO daily 08/21/2016 11/18/2016 Inactive lisinopril 20 mg tablet RxNorm: 827963 1 Tablet(s) PO daily 08/21/2016 11/18/2016 Inactive Deplin (algal oil) 15 mg-90.314 mg capsule RxNorm: 1 Capsule(s) PO daily 08/21/2016 08/27/2016 Inactive Lexapro 20 mg tablet RxNorm: 809638 1 TABLET(S) PO QPM 07/27/2016 12/30/2017 Inactive simvastatin 20 mg tablet RxNorm: 683662 1 TABLET(S) PO QPM 05/24/2016 11/19/2016 Inactive Patient requests 90 days supply simvastatin 20 mg tablet RxNorm: 522922 1 Tablet(s) PO QPM 05/23/2016 05/23/2016 Inactive Lexapro 20 mg tablet RxNorm: 037508 1 Tablet(s) PO QPM 02/28/2016 02/28/2016 Inactive Lexapro 20 mg tablet RxNorm: 834898 1 Tablet(s) PO QPM 1 TABLET(S) PO QPM 02/28/2016 12/30/2017 Inactive Patient requests 90 days supply tramadol 50 mg tablet RxNorm: 705507 1 Tablet(s) PO Q6 as needed for pain 02/27/2016 04/11/2016 Inactive potassium chloride ER 10 mEq tablet,extended release RxNorm: 393552 TAKE 2 TABLETS BY MOUTH EVERY DAY 02/27/2016 11/22/2016 Inactive citalopram 20 mg tablet RxNorm: 415398 1 Tablet(s) PO QAM 02/27/2016 02/27/2016 Inactive clonazepam 1 mg tablet RxNorm: 937663 1 Tablet(s) PO BID 02/27/2016 12/30/2017 Inactive omeprazole 20 mg capsule,delayed release RxNorm: 432640 TAKE 1 CAPSULE BY MOUTH EVERY DAY 02/13/2016 10/28/2016 Inactive Mobic 15 mg tablet RxNorm: 560786 1 Tablet(s) PO daily 02/10/2016 02/03/2017 Inactive Multiple Vitamins Daily tablet RxNorm: 1 Tablet(s) PO daily 11/29/2015 12/28/2015 Inactive amlodipine 10 mg tablet RxNorm: 352134 1 Tablet(s) PO daily 11/29/2015 12/30/2017 Inactive simvastatin 20 mg tablet RxNorm: 317646 1 Tablet(s) PO QPM 11/29/2015 12/28/2015 Inactive clonazepam 1 mg tablet RxNorm: 023554 1 Tablet(s) PO Q12H 11/29/2015 12/30/2017 Inactive Colace 100 mg capsule RxNorm: 1344493 1 Capsule(s) PO daily 11/29/2015 11/29/2015 Inactive citalopram 20 mg tablet RxNorm: 397661 1 Tablet(s) PO QAM 11/29/2015 12/28/2015 Inactive Mobic 15 mg tablet RxNorm: 046869 1 Tablet(s) PO daily 11/29/2015 12/30/2017 Inactive potassium chloride ER 10 mEq tablet,extended release RxNorm: 444739 2 Tablet(s) PO daily 20meq daily 11/29/2015 12/28/2015 Inactive lisinopril 10 mg tablet RxNorm: 480736 1 Tablet(s) PO daily 11/29/2015 12/30/2017 Inactive Coricidin HBP 10 mg-200 mg capsule RxNorm: 2535856 1 Capsule(s) PO PRN No Start Date Active cranberry 400 mg capsule RxNorm: 596159 1 Capsule(s) PO daily No Start Date Active Vitamin D3 1,000 unit tablet RxNorm: 666520 1 Tablet(s) PO daily No Start Date Active docusate sodium 100 mg tablet RxNorm: 8998956 1 Tablet(s) PO daily No Start Date Active Mobic 15 mg tablet RxNorm: 464206 1 Tablet(s) PO daily No Start Date 02/09/2016 Inactive Vitamin D3 1,000 unit tablet RxNorm: 686646 1 Tablet(s) PO daily No Start Date 06/02/2017 Inactive omeprazole 20 mg tablet,delayed release RxNorm: 405510 1 Tablet(s) PO daily No Start Date 06/02/2017 Inactive potassium chloride ER 10 mEq tablet,extended release RxNorm: 082145 2 Tablet(s) PO daily No Start Date 06/02/2017 Inactive clonazepam 1 mg tablet RxNorm: 677191 1 Tablet(s) PO BID No Start Date 02/26/2016 Inactive Aleve PM 220 mg-25 mg tablet RxNorm: 7606556 1 Tablet(s) PO daily No Start Date 05/27/2016 Inactive amlodipine 10 mg tablet RxNorm: 476260 1 Tablet(s) PO daily No Start Date 01/14/2017 Inactive lisinopril 10 mg tablet RxNorm: 844678 1 Tablet(s) PO daily No Start Date 08/20/2016 Inactive tramadol 50 mg tablet RxNorm: 495394 1 Tablet(s) PO Q6 PRN No Start Date 02/26/2016 Inactive Ultram 50 mg tablet RxNorm: 674415 1 Tablet(s) PO Q6 as needed No Start Date 11/28/2015 Inactive simvastatin 20 mg tablet RxNorm: 524784 1 Tablet(s) PO QHS No Start Date 06/02/2017 Inactive citalopram 20 mg tablet RxNorm: 133973 1 Tablet(s) PO daily No Start Date 02/26/2016 Inactive lisinopril 10 mg tablet RxNorm: 535408 1 Tablet(s) PO daily No Start Date 04/04/2017 Inactive omeprazole 20 mg capsule,delayed release RxNorm: 417500 1 Capsule(s) PO daily No Start Date 02/12/2016 Inactive Medication Administered No Medication Administered data Immunizations No Immunization data Assessments Condition Codes Effective Dates Pneumonia, unspecified organism ICD-10: J18.9 ICD-9: 486 09/26/2018 Essential (primary) hypertension ICD-10: I10 ICD-9: 401.9 09/26/2018 Generalized anxiety disorder ICD-10: F41.1 ICD-9: 300.02 09/26/2018 Urinary tract infection, site not specified ICD-10: N39.0 ICD-9: 599.0 09/26/2018 Slow transit constipation ICD-10: K59.01 ICD-9: 564.01 05/26/2018 Other insomnia ICD-10: G47.09 ICD-9: 327.09 04/24/2018 Major depressive disorder, recurrent, mild ICD-10: F33.0 ICD-9: 296.31 12/31/2017 Unsteadiness on feet ICD-10: R26.81 ICD-9: 781.2 12/31/2017 Hypoxemia ICD-10: R09.02 ICD-9: 799.02 10/29/2017 Sleep related hypoventilation in conditions classified elsewhere ICD-10: G47.36 ICD-9: 327.26 10/29/2017 Mixed hyperlipidemia ICD-10: E78.2 ICD-9: 272.2 08/23/2016 Encounter for general adult medical examination without abnormal findings ICD-10: Z00.00 ICD-9: V70.0 08/23/2016 Gastro-esophageal reflux disease without esophagitis ICD-10: K21.9 ICD-9: 530.81 05/28/2016 Reason For Visit Reason For Visit Effective Dates Notes Hospital Follow Up 09/26/2018 constipation 05/26/2018 insomnia 04/24/2018 hypertension 12/31/2017 dyspnea 10/29/2017 depression 02/01/2017 hypertension 08/21/2016 hypertension 05/28/2016 hypertension 02/28/2016 cerumen 11/29/2015 Results Observation Observation Code Item Item Code Result Date Lipid Ord30 CHOL 155 mg/dL 10/09/2016 Lipid Ord30 HDL 55.0 mg/dl 10/09/2016 Lipid Ord30 TRIG 121 mg/dL 10/09/2016 Lipid Ord30 LDL 76 mg/dL 10/09/2016 Lipid Ord30 C/HDL 2.8 Ratio 10/09/2016 Comp Metabolic Vaq547 NA 136 mEq/L 10/09/2016 Comp Metabolic Fpt675 K 4.9 mEq/L 10/09/2016 Comp Metabolic Tqf755 CL 97 mEq/L 10/09/2016 Comp Metabolic Eyk468 CO2 30.0 mEq/L 10/09/2016 Comp Metabolic Vay179 ANION GAP 14 10/09/2016 Comp Metabolic Acd241 GLUCOSE 66 mg/dL 10/09/2016 Comp Metabolic Vqb845 Creat 0.9 mg/dL 10/09/2016 Comp Metabolic Gvz226 eGFR 64 ml/min/1.73m2 10/09/2016 Comp Metabolic But921 BUN 13 mg/dL 10/09/2016 Comp Metabolic Yiv310 B/C Ratio 14.6 Ratio 10/09/2016 Comp Metabolic Rhd401 CALCIUM 10.0 mg/dL 10/09/2016 Comp Metabolic Pyf556 ALK PHOS 59 U/L 10/09/2016 Comp Metabolic Hfn802 AST(SGOT) 20 U/L 10/09/2016 Comp Metabolic Hrl876 ALT(SGPT) 9 U/L 10/09/2016 Comp Metabolic Ioy053 BILI T 0.4 mg/dL 10/09/2016 Comp Metabolic Zbu749 ALBUMIN 4.1 g/dL 10/09/2016 Comp Metabolic Eix278 TPRO 7.1 g/dL 10/09/2016 Comp Metabolic Xmh603 GLOB 3.0 g/dL 10/09/2016 Comp Metabolic Tcc748 A/G Ratio 1.4 Ratio 10/09/2016 Comp Metabolic Ynb646 Osmo 270 mOsmo 10/09/2016 Tsh Ord6 hTSH [...] 31.2 pg 10/09/2016 Cbc With Differential Ord2 Crawford% 13.7 % 10/09/2016 Cbc With Differential Ord2 [...] 1.49 K/ul 10/09/2016 Cbc With Differential Ord2 Crawford ABS# 0.6 K/ul 10/09/2016 Cbc With Differential Ord2 Eos ABS# 0.1 K/ul 10/09/2016 Cbc With Differential Ord2 Baso ABS# 0.0 K/ul 10/09/2016 Review of Systems System Result Effective Dates Constitutional recent illness 09/26/2018 Constitutional No anorexia 09/26/2018 Constitutional No night sweats 09/26/2018 Constitutional No chills 09/26/2018 Constitutional No diaphoresis 09/26/2018 Constitutional fatigue 09/26/2018 Constitutional No fever 09/26/2018 Constitutional No insomnia 09/26/2018 Constitutional No malaise 09/26/2018 Constitutional No weight loss 09/26/2018 Constitutional No weight gain 09/26/2018 Eyes No eye discharge 09/26/2018 Eyes No eye erythema 09/26/2018 Ears/Nose/Throat/Neck No dizziness 09/26/2018 Cardiovascular No chest pain/pressure 09/26/2018 Respiratory No cough 09/26/2018 Gastrointestinal No abdominal pain 09/26/2018 Gastrointestinal No constipation 09/26/2018 Gastrointestinal No diarrhea 09/26/2018 Gastrointestinal No nausea 09/26/2018 Gastrointestinal No vomiting 09/26/2018 Genitourinary/Nephrology No dysuria 09/26/2018 Musculoskeletal joint complaint 09/26/2018 Dermatologic No rash 09/26/2018 Neurologic No alteration of consciousness 09/26/2018 Psychiatric anxiety 09/26/2018 Psychiatric depression 09/26/2018 Endocrine No dry or coarse skin 09/26/2018 Constitutional No recent illness 05/26/2018 Constitutional No anorexia 05/26/2018 Constitutional No night sweats 05/26/2018 Constitutional No chills 05/26/2018 Constitutional No diaphoresis 05/26/2018 Constitutional fatigue 05/26/2018 Constitutional No fever 05/26/2018 Constitutional No insomnia 05/26/2018 Constitutional No malaise 05/26/2018 Constitutional No weight loss 05/26/2018 Constitutional No weight gain 05/26/2018 Eyes No eye discharge 05/26/2018 Eyes No eye erythema 05/26/2018 Ears/Nose/Throat/Neck No dizziness 05/26/2018 Cardiovascular No chest pain/pressure 05/26/2018 Respiratory No cough 05/26/2018 Gastrointestinal No abdominal pain 05/26/2018 Gastrointestinal constipation 05/26/2018 Gastrointestinal No diarrhea 05/26/2018 Genitourinary/Nephrology No dysuria 05/26/2018 Musculoskeletal joint complaint 05/26/2018 Dermatologic No rash 05/26/2018 Neurologic No alteration of consciousness 05/26/2018 Psychiatric anxiety 05/26/2018 Psychiatric depression 05/26/2018 Endocrine No dry or coarse skin 05/26/2018 Gastrointestinal No nausea 05/26/2018 Gastrointestinal No vomiting 05/26/2018 Constitutional recent illness 04/24/2018 Constitutional No anorexia 04/24/2018 Constitutional No night sweats 04/24/2018 Constitutional No chills 04/24/2018 Constitutional No diaphoresis 04/24/2018 Constitutional fatigue 04/24/2018 Constitutional No fever 04/24/2018 Constitutional insomnia 04/24/2018 Constitutional No malaise 04/24/2018 Constitutional No weight loss 04/24/2018 Constitutional No weight gain 04/24/2018 Eyes No eye discharge 04/24/2018 Eyes No eye erythema 04/24/2018 Ears/Nose/Throat/Neck No dizziness 04/24/2018 Cardiovascular No chest pain/pressure 04/24/2018 Respiratory No cough 04/24/2018 Gastrointestinal No abdominal pain 04/24/2018 Gastrointestinal No constipation 04/24/2018 Gastrointestinal No diarrhea 04/24/2018 Genitourinary/Nephrology No dysuria 04/24/2018 Musculoskeletal joint complaint 04/24/2018 Dermatologic No rash 04/24/2018 Neurologic No alteration of consciousness 04/24/2018 Psychiatric anxiety 04/24/2018 Psychiatric depression 04/24/2018 Endocrine No dry or coarse skin 04/24/2018 Constitutional No recent illness 12/31/2017 Constitutional No anorexia 12/31/2017 Constitutional No night sweats 12/31/2017 Constitutional No chills 12/31/2017 Constitutional No diaphoresis 12/31/2017 Constitutional No fatigue 12/31/2017 Constitutional No fever 12/31/2017 Constitutional No insomnia 12/31/2017 Constitutional No malaise 12/31/2017 Constitutional No weight loss 12/31/2017 Constitutional No weight gain 12/31/2017 Eyes No eye discharge 12/31/2017 Eyes No eye erythema 12/31/2017 Ears/Nose/Throat/Neck No dizziness 12/31/2017 Ears/Nose/Throat/Neck No headache 12/31/2017 Ears/Nose/Throat/Neck cerumen 12/31/2017 Cardiovascular No chest pain/pressure 12/31/2017 Respiratory No cough 12/31/2017 Gastrointestinal No abdominal pain 12/31/2017 Gastrointestinal No constipation 12/31/2017 Gastrointestinal No diarrhea 12/31/2017 Genitourinary/Nephrology No dysuria 12/31/2017 Genitourinary/Nephrology urinary incontinence 12/31/2017 Musculoskeletal back pain 12/31/2017 Dermatologic No rash 12/31/2017 Neurologic No alteration of consciousness 12/31/2017 Psychiatric anxiety 12/31/2017 Psychiatric depression 12/31/2017 Constitutional recent illness 10/29/2017 Constitutional No chills 10/29/2017 Constitutional No diaphoresis 10/29/2017 Constitutional No fever 10/29/2017 Eyes No eye erythema 10/29/2017 Ears/Nose/Throat/Neck No nasal discharge 10/29/2017 Ears/Nose/Throat/Neck No nasal allergies 10/29/2017 Cardiovascular No chest pain/pressure 10/29/2017 Respiratory No cough 10/29/2017 Respiratory No chest congestion 10/29/2017 Respiratory No dyspnea 10/29/2017 Respiratory dyspnea on exertion 10/29/2017 Respiratory daytime hypersomnolence 10/29/2017 Gastrointestinal No abdominal pain 10/29/2017 Neurologic No alteration of consciousness 10/29/2017 Neurologic No mental status change 10/29/2017 Constitutional No recent illness 02/01/2017 Constitutional No anorexia 02/01/2017 Constitutional No night sweats 02/01/2017 Constitutional No chills 02/01/2017 Constitutional No diaphoresis 02/01/2017 Constitutional No fatigue 02/01/2017 Constitutional No fever 02/01/2017 Constitutional insomnia 02/01/2017 Constitutional No malaise 02/01/2017 Constitutional No weight loss 02/01/2017 Constitutional No weight gain 02/01/2017 Eyes No eye discharge 02/01/2017 Eyes No eye erythema 02/01/2017 Ears/Nose/Throat/Neck No dizziness 02/01/2017 Ears/Nose/Throat/Neck No headache 02/01/2017 Cardiovascular No chest pain/pressure 02/01/2017 Cardiovascular No dyspnea 02/01/2017 Cardiovascular edema 02/01/2017 Respiratory No productive sputum 02/01/2017 Respiratory No chest congestion 02/01/2017 Respiratory No cough 02/01/2017 Gastrointestinal No abdominal pain 02/01/2017 Gastrointestinal No constipation 02/01/2017 Gastrointestinal No diarrhea 02/01/2017 Genitourinary/Nephrology No dysuria 02/01/2017 Genitourinary/Nephrology urinary incontinence 02/01/2017 Musculoskeletal No joint complaint 02/01/2017 Dermatologic No rash 02/01/2017 Dermatologic No sores 02/01/2017 Neurologic No alteration of consciousness 02/01/2017 Psychiatric anxiety 02/01/2017 Psychiatric depression 02/01/2017 Endocrine No dry or coarse skin 02/01/2017 Hematologic/Lymphatic No abnormal ecchymoses 02/01/2017 Constitutional recent illness 08/21/2016 Constitutional No anorexia 08/21/2016 Constitutional No night sweats 08/21/2016 Constitutional No chills 08/21/2016 Constitutional No diaphoresis 08/21/2016 Constitutional fatigue 08/21/2016 Constitutional No fever 08/21/2016 Constitutional insomnia 08/21/2016 Constitutional No malaise 08/21/2016 Constitutional No weight loss 08/21/2016 Constitutional No weight gain 08/21/2016 Constitutional No obesity 08/21/2016 Eyes No eye pain 08/21/2016 Eyes No vision change 08/21/2016 Ears/Nose/Throat/Neck No dizziness 08/21/2016 Ears/Nose/Throat/Neck No headache 08/21/2016 Cardiovascular No chest pain/pressure 08/21/2016 Cardiovascular No dyspnea 08/21/2016 Respiratory No chest congestion 08/21/2016 Respiratory No chest tightness 08/21/2016 Respiratory No cigarette smoking 08/21/2016 Respiratory No cough 08/21/2016 Respiratory No productive sputum 08/21/2016 Respiratory No pedal edema 08/21/2016 Gastrointestinal No constipation 08/21/2016 Gastrointestinal No diarrhea 08/21/2016 Gastrointestinal No abdominal pain 08/21/2016 Gastrointestinal No nausea 08/21/2016 Gastrointestinal No vomiting 08/21/2016 Genitourinary/Nephrology No anuria/oliguria 08/21/2016 Genitourinary/Nephrology No dysuria 08/21/2016 Genitourinary/Nephrology urinary urgency 08/21/2016 Genitourinary/Nephrology urinary incontinence 08/21/2016 Musculoskeletal stiffness 08/21/2016 Musculoskeletal swelling 08/21/2016 Musculoskeletal arthralgia(s) 08/21/2016 Musculoskeletal back pain 08/21/2016 Musculoskeletal joint complaint 08/21/2016 Musculoskeletal myalgias 08/21/2016 Dermatologic No rash 08/21/2016 Dermatologic No sores 08/21/2016 Neurologic No alteration of consciousness 08/21/2016 Neurologic No headache 08/21/2016 Psychiatric anxiety 08/21/2016 Psychiatric depression 08/21/2016 Endocrine No polydipsia 08/21/2016 Endocrine No polyuria 08/21/2016 Hematologic/Lymphatic No abnormal ecchymoses 08/21/2016 Hematologic/Lymphatic No abnormal bleeding and bruising 08/21/2016 Constitutional No recent illness 05/28/2016 Constitutional No anorexia 05/28/2016 Constitutional No night sweats 05/28/2016 Constitutional No chills 05/28/2016 Constitutional No diaphoresis 05/28/2016 Constitutional No fatigue 05/28/2016 Constitutional No fever 05/28/2016 Constitutional insomnia 05/28/2016 Constitutional No malaise 05/28/2016 Constitutional No weight loss 05/28/2016 Constitutional No weight gain 05/28/2016 Eyes No eye discharge 05/28/2016 Eyes No eye erythema 05/28/2016 Ears/Nose/Throat/Neck No dizziness 05/28/2016 Ears/Nose/Throat/Neck No headache 05/28/2016 Cardiovascular No chest pain/pressure 05/28/2016 Cardiovascular No dyspnea 05/28/2016 Cardiovascular edema 05/28/2016 Respiratory No productive sputum 05/28/2016 Respiratory No chest congestion 05/28/2016 Respiratory No cough 05/28/2016 Gastrointestinal No abdominal pain 05/28/2016 Gastrointestinal No constipation 05/28/2016 Gastrointestinal No diarrhea 05/28/2016 Genitourinary/Nephrology No dysuria 05/28/2016 Genitourinary/Nephrology urinary frequency 05/28/2016 Genitourinary/Nephrology urinary incontinence 05/28/2016 Musculoskeletal No joint complaint 05/28/2016 Dermatologic No rash 05/28/2016 Dermatologic No sores 05/28/2016 Neurologic No alteration of consciousness 05/28/2016 Psychiatric anxiety 05/28/2016 Psychiatric depression 05/28/2016 Endocrine No dry or coarse skin 05/28/2016 Hematologic/Lymphatic No abnormal ecchymoses 05/28/2016 Constitutional No recent illness 02/28/2016 Constitutional No night sweats 02/28/2016 Constitutional No chills 02/28/2016 Constitutional No diaphoresis 02/28/2016 Constitutional No fatigue 02/28/2016 Constitutional No fever 02/28/2016 Constitutional No malaise 02/28/2016 Constitutional No weight gain 02/28/2016 Eyes No eye discharge 02/28/2016 Eyes No eye erythema 02/28/2016 Ears/Nose/Throat/Neck No dizziness 02/28/2016 Ears/Nose/Throat/Neck No headache 02/28/2016 Cardiovascular No chest pain/pressure 02/28/2016 Cardiovascular No dyspnea 02/28/2016 Cardiovascular edema 02/28/2016 Respiratory No productive sputum 02/28/2016 Respiratory No chest congestion 02/28/2016 Respiratory No cough 02/28/2016 Gastrointestinal No abdominal pain 02/28/2016 Gastrointestinal No constipation 02/28/2016 Gastrointestinal No diarrhea 02/28/2016 Genitourinary/Nephrology No dysuria 02/28/2016 Genitourinary/Nephrology urinary frequency 02/28/2016 Genitourinary/Nephrology urinary incontinence 02/28/2016 Musculoskeletal No joint complaint 02/28/2016 Dermatologic No rash 02/28/2016 Dermatologic No sores 02/28/2016 Neurologic No alteration of consciousness 02/28/2016 Psychiatric anxiety 02/28/2016 Psychiatric depression 02/28/2016 Endocrine No dry or coarse skin 02/28/2016 Hematologic/Lymphatic No abnormal ecchymoses 02/28/2016 Constitutional No anorexia 02/28/2016 Constitutional insomnia 02/28/2016 Constitutional No weight loss 02/28/2016 Constitutional No recent illness 11/29/2015 Constitutional anorexia 11/29/2015 Constitutional No night sweats 11/29/2015 Constitutional No chills 11/29/2015 Constitutional No diaphoresis 11/29/2015 Constitutional No fatigue 11/29/2015 Constitutional No fever 11/29/2015 Constitutional No malaise 11/29/2015 Constitutional insomnia 11/29/2015 Constitutional weight loss 11/29/2015 Constitutional No weight gain 11/29/2015 Psychiatric anxiety 11/29/2015 Psychiatric depression 11/29/2015 Eyes No eye discharge 11/29/2015 Eyes No eye erythema 11/29/2015 Ears/Nose/Throat/Neck No dizziness 11/29/2015 Ears/Nose/Throat/Neck No headache 11/29/2015 Cardiovascular No chest pain/pressure 11/29/2015 Cardiovascular No dyspnea 11/29/2015 Respiratory No productive sputum 11/29/2015 Respiratory No chest congestion 11/29/2015 Respiratory No cough 11/29/2015 Cardiovascular edema 11/29/2015 Gastrointestinal No abdominal pain 11/29/2015 Gastrointestinal No constipation 11/29/2015 Gastrointestinal No diarrhea 11/29/2015 Genitourinary/Nephrology No dysuria 11/29/2015 Genitourinary/Nephrology urinary incontinence 11/29/2015 Genitourinary/Nephrology urinary frequency 11/29/2015 Musculoskeletal No joint complaint 11/29/2015 Dermatologic No rash 11/29/2015 Dermatologic No sores 11/29/2015 Neurologic No alteration of consciousness 11/29/2015 Endocrine No dry or coarse skin 11/29/2015 Hematologic/Lymphatic No abnormal ecchymoses 11/29/2015 Physical Exam Exam Name System Name Item Name Status Result Effective Dates Notes Full Exam - General 1994 Constitutional general appearance Overall: well developed 09/26/2018 None Full Exam - General 1994 Constitutional general appearance Overall: in no acute distress 09/26/2018 None Full Exam - General 1994 Constitutional general appearance Overall: well nourished 09/26/2018 None Full Exam - General 1994 Constitutional general appearance Assistive Device: wheelchair 09/26/2018 None Full Exam - General 1994 Eyes conjunctiva/eyelids Overall: conjunctiva clear 09/26/2018 None Full Exam - General 1994 Eyes pupils and irises Overall: pupils equal, round, reactive to light and accomodation 09/26/2018 None Full Exam - General 1994 Ears/Nose/Throat lips/teeth/gingiva Teeth: wears dentures 09/26/2018 None Full Exam - General 1994 Respiratory auscultation Overall: breath sounds clear bilaterally 09/26/2018 None Full Exam - General 1994 Respiratory respiratory effort/rhythm Overall: no retractions 09/26/2018 None Full Exam - General 1994 Respiratory respiratory effort/rhythm Overall: normal rate 09/26/2018 None Full Exam - General 1994 Cardiovascular extremities Overall: no clubbing 09/26/2018 None Full Exam - General 1994 Cardiovascular auscultation of heart Overall: regular rate 09/26/2018 None Full Exam - General 1994 Cardiovascular auscultation of heart Overall: normal heart sounds 09/26/2018 None Full Exam - General 1994 Cardiovascular auscultation of heart Systolic murmur: holosystolic 09/26/2018 None Full Exam - General 1994 Cardiovascular auscultation of heart Systolic murmur grade: II/ 09/26/2018 None Full Exam - General 1994 Abdomen abdominal exam Overall: no tenderness 09/26/2018 None Full Exam - General 1994 Abdomen abdominal exam Overall: normal bowel sounds 09/26/2018 None Full Exam - General 1994 Lymphatic neck nodes Overall: anterior cervical chain benign 09/26/2018 None Full Exam - General 1994 Lymphatic neck nodes Overall: posterior cervical chain benign 09/26/2018 None Full Exam - General 1994 Musculoskeletal upper extremity Overall: upper arm non-tender, without crepitus or defects 09/26/2018 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 Full Exam - General 1994 Musculoskeletal gait and station Overall: normal gait 09/26/2018 None Full Exam - General 1994 Musculoskeletal gait and station Overall: normal station 09/26/2018 None Full Exam - General 1994 Musculoskeletal head and neck Overall: head atraumatic 09/26/2018 None Full Exam - General 1994 Integument inspection of skin Overall: few scattered moles, no gross abnormalities 09/26/2018 None Full Exam - General 1994 Neurologic cranial nerves Overall: crainial nerves 2 - 12 grossly intact 09/26/2018 None Full Exam - General 1994 Psychiatric orientation/consciousness Overall: oriented to person, place and time 09/26/2018 None Full Exam - General 1994 Psychiatric mood and affect Mood: depressed 09/26/2018 None Full Exam - General 1994 Psychiatric mood and affect Mood: anxious 09/26/2018 None Full Exam - General 1994 Psychiatric mood and affect Affect: mood congruent 09/26/2018 None Full Exam - General 1994 Constitutional general appearance Overall: well developed 05/26/2018 None Full Exam - General 1994 Constitutional general appearance Overall: in no acute distress 05/26/2018 None Full Exam - General 1994 Constitutional general appearance Overall: well nourished 05/26/2018 None Full Exam - General 1994 Constitutional general appearance Assistive Device: wheelchair 05/26/2018 None Full Exam - General 1994 Eyes conjunctiva/eyelids Overall: conjunctiva clear 05/26/2018 None Full Exam - General 1994 Eyes pupils and irises Overall: pupils equal, round, reactive to light and accomodation 05/26/2018 None Full Exam - General 1994 Ears/Nose/Throat lips/teeth/gingiva Teeth: wears dentures 05/26/2018 None Full Exam - General 1994 Respiratory auscultation Overall: breath sounds clear bilaterally 05/26/2018 None Full Exam - General 1994 Respiratory respiratory effort/rhythm Overall: no retractions 05/26/2018 None Full Exam - General 1994 Respiratory respiratory effort/rhythm Overall: normal rate 05/26/2018 None Full Exam - General 1994 Cardiovascular extremities Overall: no clubbing 05/26/2018 None Full Exam - General 1994 Cardiovascular auscultation of heart Overall: regular rate 05/26/2018 None Full Exam - General 1994 Cardiovascular auscultation of heart Overall: normal heart sounds 05/26/2018 None Full Exam - General 1994 Cardiovascular auscultation of heart Systolic murmur: holosystolic 05/26/2018 None Full Exam - General 1994 Cardiovascular auscultation of heart Systolic murmur grade: II/ 05/26/2018 None Full Exam - General 1994 Abdomen abdominal exam Overall: no tenderness 05/26/2018 None Full Exam - General 1994 Abdomen abdominal exam Overall: normal bowel sounds 05/26/2018 None Full Exam - General 1995 Lymphatic neck nodes Overall: anterior cervical chain benign 05/26/2018 None Full Exam - General 1995 Lymphatic neck nodes Overall: posterior cervical chain benign 05/26/2018 None Full Exam - General 1994 Musculoskeletal upper extremity Overall: upper arm non-tender, without crepitus or defects 05/26/2018 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 Full Exam - General 1994 Musculoskeletal gait and station Overall: normal gait 05/26/2018 None Full Exam - General 1994 Musculoskeletal gait and station Overall: normal station 05/26/2018 None Full Exam - General 1994 Musculoskeletal head and neck Overall: head atraumatic 05/26/2018 None Full Exam - General 1994 Integument inspection of skin Overall: few scattered moles, no gross abnormalities 05/26/2018 None Full Exam - General 1994 Neurologic cranial nerves Overall: crainial nerves 2 - 12 grossly intact 05/26/2018 None Full Exam - General 1994 Psychiatric orientation/consciousness Overall: oriented to person, place and time 05/26/2018 None Full Exam - General 1994 Psychiatric mood and affect Mood: depressed 05/26/2018 None Full Exam - General 1994 Psychiatric mood and affect Mood: anxious 05/26/2018 None Full Exam - General 1994 Psychiatric mood and affect Affect: mood congruent 05/26/2018 None Full Exam - General 1994 Constitutional general appearance Overall: well developed 04/24/2018 None Full Exam - General 1994 Constitutional general appearance Overall: in no acute distress 04/24/2018 None Full Exam - General 1994 Constitutional general appearance Overall: well nourished 04/24/2018 None Full Exam - General 1994 Constitutional general appearance Assistive Device: wheelchair 04/24/2018 None Full Exam - General 1994 Eyes conjunctiva/eyelids Overall: conjunctiva clear 04/24/2018 None Full Exam - General 1994 Eyes pupils and irises Overall: pupils equal, round, reactive to light and accomodation 04/24/2018 None Full Exam - General 1994 Ears/Nose/Throat lips/teeth/gingiva Teeth: wears dentures 04/24/2018 None Full Exam - General 1994 Respiratory auscultation Overall: breath sounds clear bilaterally 04/24/2018 None Full Exam - General 1994 Respiratory respiratory effort/rhythm Overall: no retractions 04/24/2018 None Full Exam - General 1994 Respiratory respiratory effort/rhythm Overall: normal rate 04/24/2018 None Full Exam - General 1994 Cardiovascular extremities Overall: no clubbing 04/24/2018 None Full Exam - General 1994 Cardiovascular auscultation of heart Overall: regular rate 04/24/2018 None Full Exam - General 1994 Cardiovascular auscultation of heart Overall: normal heart sounds 04/24/2018 None Full Exam - General 1994 Cardiovascular auscultation of heart Systolic murmur: holosystolic 04/24/2018 None Full Exam - General 1994 Cardiovascular auscultation of heart Systolic murmur grade: II/ 04/24/2018 None Full Exam - General 1994 Abdomen abdominal exam Overall: no tenderness 04/24/2018 None Full Exam - General 1994 Abdomen abdominal exam Overall: normal bowel sounds 04/24/2018 None Full Exam - General 1994 Lymphatic neck nodes Overall: anterior cervical chain benign 04/24/2018 None Full Exam - General 1994 Lymphatic neck nodes Overall: posterior cervical chain benign 04/24/2018 None Full Exam - General 1994 Musculoskeletal upper extremity Overall: upper arm non-tender, without crepitus or defects 04/24/2018 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 Full Exam - General 1994 Musculoskeletal gait and station Overall: normal gait 04/24/2018 None Full Exam - General 1994 Musculoskeletal gait and station Overall: normal station 04/24/2018 None Full Exam - General 1994 Musculoskeletal head and neck Overall: head atraumatic 04/24/2018 None Full Exam - General 1994 Integument inspection of skin Overall: few scattered moles, no gross abnormalities 04/24/2018 None Full Exam - General 1994 Neurologic cranial nerves Overall: crainial nerves 2 - 12 grossly intact 04/24/2018 None Full Exam - General 1994 Psychiatric orientation/consciousness Overall: oriented to person, place and time 04/24/2018 None Full Exam - General 1994 Psychiatric mood and affect Mood: depressed 04/24/2018 None Full Exam - General 1994 Psychiatric mood and affect Mood: anxious 04/24/2018 None Full Exam - General 1994 Psychiatric mood and affect Affect: mood congruent 04/24/2018 None Full Exam - General 1994 Constitutional general appearance Overall: well developed 12/31/2017 None Full Exam - General 1994 Constitutional general appearance Overall: in no acute distress 12/31/2017 None Full Exam - General 1994 Constitutional general appearance Overall: well nourished 12/31/2017 None Full Exam - General 1994 Eyes conjunctiva/eyelids Overall: conjunctiva clear 12/31/2017 None Full Exam - General 1994 Eyes pupils and irises Overall: pupils equal, round, reactive to light and accomodation 12/31/2017 None Full Exam - General 1994 Ears/Nose/Throat otoscopic exam Overall: external auditory canals clear 12/31/2017 None Full Exam - General 1994 Ears/Nose/Throat lips/teeth/gingiva Teeth: wears dentures 12/31/2017 UPPER Full Exam - General 1994 Respiratory [...] 1994 Musculoskeletal upper extremity Overall: upper arm non-tender, without crepitus or defects 12/31/2017 RIGHT UPPER [...] None Full Exam - General 1994 Eyes conjunctiva/eyelids Overall: conjunctiva clear 10/29/2017 None Full Exam - General 1994 Ears/Nose/Throat otoscopic exam Overall: external auditory canals clear 10/29/2017 None Full Exam - General 1994 Ears/Nose/Throat otoscopic exam Overall: tympanic membranes clear 10/29/2017 None Full Exam - General 1994 Ears/Nose/Throat lips/teeth/gingiva Teeth: wears dentures 10/29/2017 [facility] Full Exam - General 1994 Respiratory respiratory [...] benign 10/29/2017 None Full Exam - General 1995 Lymphatic neck nodes Overall: posterior cervical chain benign 10/29/2017 None Full Exam - General 1994 Musculoskeletal upper extremity Overall: upper arm non-tender, without crepitus or defects 10/29/2017 RIGHT UPPER [...] None Full Exam - General 1994 Eyes conjunctiva/eyelids Overall: conjunctiva clear 02/01/2017 None Full Exam [...] 1994 Musculoskeletal upper extremity Overall: upper arm non-tender, without crepitus or defects 02/01/2017 RIGHT UPPER [...] None Full Exam - General 1994 Eyes conjunctiva/eyelids Overall: conjunctiva clear 08/21/2016 None Full Exam - General 1994 Eyes conjunctiva/eyelids Overall: cornea clear 08/21/2016 None Full Exam [...] General 1994 Neck thyroid Overall: normal size 08/21/2016 None Full Exam [...] None Full Exam - General 1994 Eyes conjunctiva/eyelids Overall: conjunctiva clear 05/28/2016 None Full Exam [...] 1994 Musculoskeletal upper extremity Overall: upper arm non-tender, without crepitus or defects 05/28/2016 RIGHT UPPER [...] None Full Exam - General 1994 Eyes conjunctiva/eyelids Overall: conjunctiva clear 02/28/2016 None Full Exam [...] 1994 Musculoskeletal upper extremity Overall: upper arm non-tender, without crepitus or defects 02/28/2016 RIGHT UPPER [...] UPPER Full Exam - General 1994 Eyes conjunctiva/eyelids Overall: conjunctiva clear 11/29/2015 None Full Exam - General 1994 Eyes pupils and irises Overall: pupils equal, round, reactive to light and accomodation 11/29/2015 None Full Exam - General 1994 Musculoskeletal upper extremity Overall: upper arm non-tender, without crepitus or defects 11/29/2015 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 Procedures No Procedures data Vital Signs Date Vital 09/26/2018 Blood Pressure 1: 136/70 Code: 8480-6 Heart Rate 1: 64 bpm Height: SpO2: 96% Weight: 05/26/2018 Blood Pressure 1: 122/70 Code: 8480-6 Heart Rate 1: 67 bpm Height: SpO2: 95% Weight: 04/24/2018 Blood Pressure 1: 138/70 Code: 8480-6 Heart Rate 1: 93 bpm Height: SpO2: 96% Temperature: 36.7 (C) / 98.0 (F) Weight: 12/31/2017 Blood Pressure 1: 138/68 Code: 8480-6 Heart Rate 1: 83 bpm Height: 5'5" SpO2: 98% Weight: 10/29/2017 Blood Pressure 1: 150/80 Code: 8480-6 Heart Rate 1: 96 bpm Height: SpO2: 98% Weight: 02/01/2017 Blood Pressure 1: 164/82 Code: 8480-6 BMI: 26.0 Code: 07369-5 Heart Rate 1: 120 bpm Height: 5'5" SpO2: 95% Weight: 156 lbs 08/21/2016 Blood Pressure 1: 166/80 Code: 8480-6 BMI: 25.8 Code: 86559-5 Heart Rate 1: 105 bpm Height: 5'5" SpO2: 95% Weight: 155 lbs 05/28/2016 Blood Pressure 1: 142/74 Code: 8480-6 BMI: 25.3 Code: 02563-1 Heart Rate 1: 104 bpm Height: 5'5" SpO2: 96% Weight: 152 lbs 02/28/2016 Blood Pressure 1: 130/70 Code: 8480-6 BMI: 26.0 Code: 73848-4 Heart Rate 1: 100 bpm Height: 5'5" SpO2: 96% Weight: 156 lbs 11/29/2015 Blood Pressure 1: 130/70 Code: 8480-6 BMI: 25.5 Code: 64602-2 Heart Rate 1: 86 bpm Height: 5'5" SpO2: 96% Weight: 153 lbs Functional Status No Functional Status data History of Present Illness Symptom Name Status Result Effective Date Notes Quality intermittent 09/26/2018 None _ infection 09/26/2018 None Onset of Symptom 1 weeks ago 09/26/2018 None Pertinent Findings Denies pain 09/26/2018 None Onset and Resolution ongoing 09/26/2018 None Significant Medical Conditions acute illness 09/26/2018 pneumonia and UTI Mechanism of injury unknown 09/26/2018 None Quality intermittent 05/26/2018 None Quality hard 05/26/2018 None Onset of Symptom _ months ago 05/26/2018 None Pertinent Findings Denies depressed mood 05/26/2018 None Pertinent Findings Denies fever 05/26/2018 None Severity moderate 05/26/2018 None Frequency of Episodes increasing 05/26/2018 None Triggers no known associated factors 05/26/2018 None Alleviating Factors medication 05/26/2018 otc laxative Onset and Resolution ongoing 05/26/2018 None Quality acute 04/24/2018 None Onset and Resolution ongoing 04/24/2018 None Severity mild 04/24/2018 None Frequency of Episodes unchanged 04/24/2018 None Triggers no known associated factors 04/24/2018 None hypertension Onset and Resolution ongoing 12/31/2017 None [...] data Encounters Encounter Performer Location Codes Date ([id number]) [id number] EST. PATIENT, LEVEL IV Diagnosis: Essential (primary) hypertension[ICD10: I10] Diagnosis: Generalized anxiety disorder[ICD10: F41.1] Diagnosis: Pneumonia, unspecified organism[ICD10: J18.9] Diagnosis: Urinary tract infection, site not specified[ICD10: N39.0] Morenita Davenport MD, [facility] CPT-4: 46494 09/26/2018 ([id number]) [id number] EST. PATIENT, LEVEL IV Diagnosis: Slow transit constipation[ICD10: K59.01] Diagnosis: Generalized anxiety disorder[ICD10: F41.1] Diagnosis: Essential (primary) hypertension[ICD10: I10] Morenita Davenport MD, [facility] CPT-4: 92461 05/26/2018 ([id number]) 48180 EST. PATIENT, LEVEL IV Diagnosis: Essential (primary) hypertension[ICD10: I10] Diagnosis: Generalized anxiety disorder[ICD10: F41.1] Diagnosis: Other insomnia[ICD10: G47.09] Morenita Davenport MD, [facility] CPT-4: 61296 04/24/2018 ([id number]) 26456 EST. PATIENT, LEVEL IV Diagnosis: Essential (primary) hypertension[ICD10: I10] Diagnosis: Generalized anxiety disorder[ICD10: F41.1] Diagnosis: Major depressive disorder, recurrent, mild[ICD10: F33.0] Diagnosis: Unsteadiness on feet[ICD10: R26.81] Morenita Davenport MD, [facility] CPT-4: 05587 12/31/2017 [id number] EST. PATIENT, LEVEL IV Diagnosis: Essential (primary) hypertension[ICD10: I10] Diagnosis: Hypoxemia[ICD10: R09.02] Diagnosis: Sleep related hypoventilation in conditions classified elsewhere[ICD10: G47.36] Tia Davenport MD, [facility] CPT-4: 31330 10/29/2017 ([id number]) 88131 EST. PATIENT, LEVEL IV Diagnosis: Essential (primary) hypertension[ICD10: I10] Diagnosis: Generalized anxiety disorder[ICD10: F41.1] Diagnosis: Major depressive disorder, recurrent, mild[ICD10: F33.0] Morenita Davenport MD, [facility] CPT-4: 50514 02/01/2017 ([id number]) 76926 EST. PATIENT, LEVEL IV Diagnosis: Essential (primary) hypertension[ICD10: I10] Diagnosis: Generalized anxiety disorder[ICD10: F41.1] Diagnosis: Major depressive disorder, recurrent, mild[ICD10: F33.0] Morenita Davenport MD, [facility] CPT-4: 10806 08/21/2016 ([id number]) 65217 EST. PATIENT, LEVEL IV Diagnosis: Generalized anxiety disorder[ICD10: F41.1] Diagnosis: Essential (primary) hypertension[ICD10: I10] Diagnosis: Gastro-esophageal reflux disease without esophagitis[ICD10: K21.9] Morenita Davenport MD, [facility] CPT-4: 98211 05/28/2016 ([id number]) 92409 EST. PATIENT, LEVEL IV Diagnosis: Generalized anxiety disorder[ICD10: F41.1] Diagnosis: Major depressive disorder, recurrent, mild[ICD10: F33.0] Diagnosis: Essential (primary) hypertension[ICD10: I10] Morenita Davenport MD, [facility] CPT-4: 50538 02/28/2016 ([id number]) OFFICE VISIT, NEW - LEVEL 4 Diagnosis: Essential (primary) hypertension[ICD10: I10] Diagnosis: Generalized anxiety disorder[ICD10: F41.1] Diagnosis: Mixed hyperlipidemia[ICD10: E78.2] Diagnosis: Major depressive disorder, recurrent, mild[ICD10: F33.0] Morenita Davenport MD, [facility] CPT-4: 30969 11/29/2015 Plan of Care Planned Activity Notes Codes Status Date Visit Plan: Hypertension - well controlled - continue with current medications, continue with no added salt diet. Pt has been encouraged to exercise daily. The pt has been advised to call the office if there are any acute concerns about change in blood pressure readings at home. UTI-positive for yeast- will treat with diflucan weekly x 1 month [id number] to use oxygen prn Chronic Depression and anxiety - the pt has symptoms of chronic anxiety and depression that have been fairly well controlled since the last office visit. The pt has expected periods of exacerbation with abatement of the symptoms with change in situational exposure. No change in current medications. 09/26/2018 Appointment: Morenita Don WPtel: [facility] [place] (15 min) Moderate 09/26/2018 Patient Education: Patient Medication Summary Completed 09/26/2018 Patient Education: Hypertension Completed 09/26/2018 Appointment: Morenita Don WPtel: [facility] [place] (30 min) Complex 09/08/2018 Visit Plan: Constipation - uncontrolled - I have discussed with the patient the need for adequate fiber and water intake to facilitate soft, easily passed stools. The pt noted understanding of our conversation. I have given the patient a recipe for "power pudding" - equal parts, bran flakes, prune juice, and apple sauce. The pt is to call if symptoms not improved on this regimen. Chronic Depression and anxiety - the pt [...] change in blood pressure readings at home. 05/26/2018 Appointment: Morenita Don WPtel: [facility] [phone] (15 min) Moderate 05/26/2018 Patient Education: Patient Medication Summary Completed 05/26/2018 Patient Education: Hypertension Completed 05/26/2018 Visit Plan: Hypertension - well controlled - continue with current medications, continue with no added salt diet. Pt has been encouraged to exercise daily. The pt has been advised to call the office if there are any acute concerns about change in blood pressure readings at home. Anxiety - the patient has uncontrolled anxiety and will benefit from an increase in SSRI on a daily basis to attempt control of the symptoms of anxiety (tachycardia, overwhelming sensations, stress, insomnia, etc). Pt is aware of the risks and benefits of treatment with the above medications. Insomnia-increase melatonin to 6mg as needed 04/24/2018 Appointment: Morenita Don WPtel: [address] [phone] (30 min) Complex 04/24/2018 Patient Education: Patient Medication Summary Completed 04/24/2018 Patient Education: Hypertension Completed 04/24/2018 Appointment: Morenita Don WPtel: [address] [phone] (30 min) Complex 04/17/2018 Appointment: Morenita Don WPtel: [address] [phone] [place] (15 min) Moderate 04/04/2018 Appointment: Morenita Don WPtel: [address] [phone] (15 min) Moderate 03/06/2018 Appointment: Morenita Don WPtel: [address] [phone] (15 min) Moderate 01/31/2018 Visit Plan: Hypertension [...] and family (daughter and grandson) verbalize understanding. 12/31/2017 Appointment: Morenita Don WPtel: [phone] (30 min) Complex 12/31/2017 Patient Education: Patient [...] or concerns. 10/29/2017 Appointment: Tia Hernandez WPtel: [phone] (30 min) Complex 10/29/2017 Patient Education: Patient Medication Summary Completed 10/29/2017 Appointment: Morenita Don WPtel: [address] [phone] (30 min) Complex 08/20/2017 Visit Plan: [...] pt is to call for acute concerns. Rduejtm-asrztqgbqv-fyplvaops patient get rid of house guest-he is taking advantage of her and causing her undue stress and worry. Increase clonazepam to TID prn-follow up in 2 weeks. 02/01/2017 [phone] (15 min) Moderate 02/01/2017 Patient Education: Patient [...] pt is to call for acute concerns. Konymgm-gajgqgrtgq-tal well controlled-add deplin-continue lexapro Patient has not had recent labs-will send orders for fasting labs 08/21/2016 Appointment: Morenita Don WPtel[phone] (15 min) Moderate 08/21/2016 Patient Education: Patient [...] or if any worse 05/28/2016 Appointment: Morenita Donl: [address] [phone] (15 min) Moderate 05/28/2016 Patient Education: [...] pressure readings at home. 02/28/2016 Appointment: Morenita Dontel: [address] [phone] (30 min) Complex 02/28/2016 Patient Education: [...] chronic medical problem and to assure normal li alize response to medications. 11/29/2015 [facility]ment: [phone] [place] New Patient 11/29/2015 Patient Education: Patient Medication Summary Completed 11/29/2015 Instructions Comment MIRALAX 1 PACKET EVERY OTHER DAY DOCUSATE DAILY . Constipation - uncontrolled - I have discussed with the patient the need for adequate fiber and water intake to facilitate soft, easily passed stools. The pt noted understanding of our conversation. I have given the patient a recipe for "power pudding" - equal parts, bran flakes, prune juice, and apple sauce. The pt is to call if symptoms not improved on this regimen. Chronic Depression and anxiety - the pt [...] change in blood pressure readings at home. RECOMMEND MEDICAL ALERT BRACELET . Hypertension - [...] increase effectiveness of lexapro: Recommend filling at [facility] in [place] due to affordability. . Hypertension - uncontrolled [...] pt is to call for acute concerns. Okjfpbv-jqbknuhbbo-qiw well controlled-add deplin-continue lexapro Patient has not [...] and family (daughter and grandson) verbalize understanding. INCREASE MELATONIN 3MG TO 2 PILLS AT BEDTIME TO HELP WITH SLEEPING I WILL CALL COLE ABOUT HER CLONAZEPAM INCREASE CITALOPRAM TO 40MG DAILY . Hypertension - well controlled - continue with current medications, continue with no added salt diet. Pt has been encouraged to exercise daily. The pt has been advised to call the office if there are any acute concerns about change in blood pressure readings at home. Anxiety - the patient has uncontrolled anxiety and will benefit from an increase in SSRI on a daily basis to attempt control of the symptoms of anxiety (tachycardia, overwhelming sensations, stress, insomnia, etc). Pt is aware of the risks and benefits of treatment with the above medications. Insomnia-increase melatonin to 6mg as needed increase clonazepam to three times daily start [...] pt is to call for acute concerns. Wrlkugz-wlnqwdbcid-svzdtpfin patient get rid of house guest-he is taking advantage of her and causing her undue stress and worry. Increase clonazepam to TID prn-follow up in 2 weeks. STAY OFF AMLODIPINE AND LISINOPRIL CONTINUE METOPROLOL DIFLUCAN 150MG -ONE PILL PER WEEK X 5 WEEKS . Hypertension - well controlled - continue with current medications, continue with no added salt diet. Pt has been encouraged to exercise daily. The pt has been advised to call the office if there are any acute concerns about change in blood pressure readings at home. UTI-positive for yeast- will treat with diflucan weekly x 1 month Fouxtjzkd-hucdaqin-czqe to use oxygen prn Chronic Depression and anxiety - the pt has symptoms of chronic anxiety and depression that have been fairly well controlled since the last office visit. The pt has expected periods of exacerbation with abatement of the symptoms with change in situational exposure. No change in current medications.
--- NOTE | 2018-10-11 17:03 | ED General ---
General Stated Complaint: CONFUSION Source of Information: Patient Exam Limitations: No Limitations History of Present Illness Date Seen by Provider: Oct 11, 2018 Time Seen by Provider: 17:01 Initial Comments To ER per EMS with worsening confusion. Family noticed her to be more confused today than usual though she does have baseline dementia. Family also noted foul- smelling urine-like odor to her clothes. No fevers or chills. 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 There is no swelling hematoma or evidence of acute injury. She moves the arm all around without evidence of pain. Timing/Duration: 1-2 Days Severity: Moderate Allergies and Home Medications Allergies Coded Allergies: Penicillins (Unverified Allergy, Severe, EDEMA, 04/13/18) Home Medications Acetaminophen 500 Mg Tablet, 500 MG PO Q4H PRN for PAIN-MILD, (Reported) Amlodipine Besylate 10 Mg Tablet, 10 MG PO 0630, (Reported) Bisacodyl 5 Mg Tablet.dr, 5 MG PO DAILY PRN for CONSTIPATION-4TH LINE, (Reported) Cefdinir 300 Mg Capsule, 300 MG PO BID Prescribed by: ARIELA WALLS on 10/11/18 1845 Cholecalciferol (Vitamin D3) 1,000 Unit Capsule, 2,000 UNIT PO 1530, (Reported) TAKES 2 (1000 UNIT) CAPSULES Citalopram Hydrobromide 40 Mg Tablet, 40 MG PO 1530, (Reported) Clonazepam 1 Mg Tablet, 2 MG PO 0630, (Reported) TAKES 2 (1MG) TABLETS Clonazepam 1 Mg Tablet, 1 MG PO 1530, (Reported) Cranberry Conc/Ascorbic Acid 1 Each Capsule, 2 CAP PO 1530, (Reported) Doxycycline Hyclate 100 Mg Tablet, 100 MG PO BID@,17 Prescribed by: SHELLIE OLIVIER on 09/01/18 0926 Lisinopril 10 Mg Tablet, 10 MG PO 0630, (Reported) Melatonin 5 Mg Capsule, 5 MG PO 1530, (Reported) Meloxicam 15 Mg Tablet, 15 MG PO 0630, (Reported) Metoprolol Succinate 25 Mg Tab.er.24h, 25 MG PO 0630, (Reported) Omeprazole 20 Mg Capsule.dr, 20 MG PO 0630, (Reported) Pediatric Multivitamin Comb#30 1 Each Tab.chew, 2 TAB.CHEW PO HS, (Reported) Potassium Chloride 10 Meq Tablet.er, 20 MEQ PO 0630, (Reported) TAKES 2 (10MEQ) TABLETS Simvastatin 20 Mg Tablet, 20 MG PO 1530, (Reported) Patient Home Medication List Home Medication List Reviewed: Yes Review of Systems Review of Systems Constitutional: see HPI EENTM: see HPI Respiratory: no symptoms reported Cardiovascular: no symptoms reported Genitourinary: no symptoms reported Musculoskeletal: no symptoms reported Skin: no symptoms reported Psychiatric/Neurological: No Symptoms Reported Hematologic/Lymphatic: No Symptoms Reported Immunological/Allergic: no symptoms reported Past Ixhwoyp-Wtzksu-Qczoan Hx Patient Social History 2nd Hand Smoke Exposure: No Recent Foreign Travel: No Contact w/Someone Who Travel: No Recent Hopitalizations: No Immunizations Up To Date Tetanus Booster (TDap): Unknown PED Vaccines UTD: No Date of Pneumonia Vaccine: Jan 27, 2014 Date of Influenza Vaccine: Jan 27, 2014 Seasonal Allergies Seasonal Allergies: No Past Medical History Surgeries: Yes Eye Surgery, Gallbladder, Joint Replacement, Orthopedic Respiratory: No Currently Using CPAP: No Currently Using BIPAP: No Cardiac: Yes Deep Vein Thrombosis, High Cholesterol, Hypertension Neurological: No Dementia Reproductive Disorders: No Genitourinary: Yes UTI-Chronic Gastrointestinal: No Musculoskeletal: Yes Degenerate Disk Disease, Osteoporosis, Arthritis, Fractures Endocrine: No HEENT: Yes Cataract Loss of Vision: Denies Hearing Impairment: Bilateral Hearing Aide Cancer: No Psychosocial: Yes Anxiety, Depression Integumentary: No Blood Disorders: No Adverse Reaction/Blood Tranf: No Family Medical History Myocardial infarction 19 MOTHER, Onset:60 years & older Heart Disease, Hypertension Physical Exam Vital Signs Vital Signs - First Documented 10/11/18 16:53 Temp 96.8 Pulse 69 Resp 18 B/P (MAP) 185/96 (125) Pulse Ox 95 O2 Delivery Room Air Capillary Refill : Height, Weight, BMI Height: 5'6.00" Weight: 130lbs. 0.0oz. 58.881527og; 21.6 BMI Method:Estimated General Appearance: No Apparent Distress, WD/WN, Anxious Eyes: Bilateral Eye Normal Inspection, Bilateral Eye PERRL, Bilateral Eye EOMI HEENT: PERRL/EOMI, TMs Normal, Normal ENT Inspection Neck: Full Range of Motion, Normal Inspection Respiratory: Normal Breath Sounds, No Accessory Muscle Use, No Respiratory Distress Cardiovascular: Regular Rate, Rhythm, Normal Peripheral Pulses Gastrointestinal: Non Tender, Soft Extremity: Normal Capillary Refill, Other (there is obvious deformity to the distal humerus right elbow but no swelling ecchymosis or erythema to suggest acute injury. The elbow does not move in the normal plane. ) Neurologic/Psychiatric: Alert, Oriented x3 Skin: Normal Color, Warm/Dry Progress/Results/Core Measures Suspected Sepsis SIRS Temperature: Pulse: Respiratory Rate: Laboratory Tests 10/11/18 17:02: White Blood Count 8.0 Blood Pressure / Mean: Laboratory Tests 10/11/18 17:02: Creatinine 0.84, Platelet Count 261, Total Bilirubin 0.4 Results/Orders Lab Results Laboratory Tests Test 10/11/18 17:02 10/11/18 17:33 Range/Units White Blood Count 8.0 4.3-11.0 10^3/uL Red Blood Count 4.90 4.35-5.85 10^6/uL Hemoglobin 14.0 11.5-16.0 G/DL Hematocrit 43 35-52 % Mean Corpuscular Volume 87 80-99 FL Mean Corpuscular Hemoglobin 29 25-34 PG Mean Corpuscular Hemoglobin Concent 33 32-36 G/DL Red Cell Distribution Width 14.9 H 10.0-14.5 % Platelet Count 261 130-400 10^3/uL Mean Platelet Volume 10.1 7.4-10.4 FL Neutrophils (%) (Auto) 61 42-75 % Lymphocytes (%) (Auto) 25 12-44 % Monocytes (%) (Auto) 10 0-12 % Eosinophils (%) (Auto) 3 0-10 % Basophils (%) (Auto) 0 0-10 % Neutrophils # (Auto) 4.9 1.8-7.8 X 10^3 Lymphocytes # (Auto) 2.0 1.0-4.0 X 10^3 Monocytes # (Auto) 0.8 0.0-1.0 X 10^3 Eosinophils # (Auto) 0.3 0.0-0.3 10^3/uL Basophils # (Auto) 0.0 0.0-0.1 10^3/uL Sodium Level 134 L 135-145 MMOL/L Potassium Level 4.5 3.6-5.0 MMOL/L Chloride Level 99 98-107 MMOL/L Carbon Dioxide Level 25 21-32 MMOL/L Anion Gap 10 5-14 MMOL/L Blood Urea Nitrogen 12 7-18 MG/DL Creatinine 0.84 0.60-1.30 MG/DL Estimat Glomerular Filtration Rate > 60 BUN/Creatinine Ratio 14 Glucose Level 91 70-105 MG/DL Calcium Level 10.2 H 8.5-10.1 MG/DL Corrected Calcium 10.4 H 8.5-10.1 MG/DL Total Bilirubin 0.4 0.1-1.0 MG/DL Aspartate Amino Transf (AST/SGOT) 17 5-34 U/L Alanine Aminotransferase (ALT/SGPT) 10 0-55 U/L Alkaline Phosphatase 63 40-136 U/L Total Protein 7.1 6.4-8.2 GM/DL Albumin 3.7 3.2-4.5 GM/DL Urine Color YELLOW Urine Clarity VERY CLOUDY H Urine pH 7 5-9 Urine Specific Lander 1.010 L 1.016-1.022 Urine Protein 2+ H NEGATIVE Urine Glucose (UA) NEGATIVE NEGATIVE Urine Ketones NEGATIVE NEGATIVE Urine Nitrite NEGATIVE NEGATIVE Urine Bilirubin NEGATIVE NEGATIVE Urine Urobilinogen NORMAL NORMAL MG/DL Urine Leukocyte Esterase 3+ H NEGATIVE Urine RBC (Auto) 5+ H NEGATIVE Urine RBC 25-50 H /HPF Urine WBC TNTC H /HPF Urine Squamous Epithelial Cells RARE /HPF Urine Crystals PRESENT H /LPF Urine Amorphous Sediment MOD ORA PHOSPHATE H /LPF Urine Bacteria MODERATE H /HPF Urine Casts NONE /LPF Urine Mucus NEGATIVE /LPF Urine Yeast MODERATE H /HPF Urine Culture Indicated YES My Orders Orders - ARIELA WALLS APRN Humerus, Right, 2 Views (10/11/18 16:55) Chest 1 View, Ap/Pa Only (10/11/18 16:55) Ua Culture If Indicated (10/11/18 16:55) Cbc With Automated Diff (10/11/18 16:55) Comprehensive Metabolic Panel (10/11/18 16:55) Ed Iv/Invasive Line Start (10/11/18 16:55) Mcguire Cath (10/11/18 17:06) Lorazepam Injection (Ativan Injection) (10/11/18 17:15) Urine Culture (10/11/18 17:33) Ceftriaxone For Iv Use (Rocephin For I (10/11/18 18:00) Risperidone Tablet (Risperdal Tablet) (10/11/18 18:30) Medications Given in ED Current Medications Medications Dose Ordered Sig/Lauren Route Start Time Stop Time Status Last Admin Dose Admin Ceftriaxone Sodium 1000 mg/ Sterile Water 10 ml @ 200 mls/hr ONCE ONCE IV 10/11/18 18:00 10/11/18 18:02 DC 10/11/18 18:11 200 MLS/HR Lorazepam 0.5 mg ONCE PRN IVP 10/11/18 17:15 10/11/18 17:50 0.5 MG Vital Signs/I&O 10/11/18 16:53 Temp 96.8 Pulse 69 Resp 18 B/P (MAP) 185/96 (125) Pulse Ox 95 O2 Delivery Room Air Capillary Refill : Departure Impression Primary Impression: Altered mental status Qualified Codes: R41.82 - Altered mental status, unspecified Additional Impressions: Anxiety UTI (urinary tract infection) Qualified Codes: N30.00 - Acute cystitis without hematuria Disposition: HOME, SELF-CARE Condition: Stable Departure-Patient Inst. Decision time for Depature: 18:44 Referrals: SHELLIE OLIVIER MD (PCP/Family) Primary Care Physician Patient Instructions: Urinary Tract Infection, Adult (DC) Add. Discharge Instructions: 1. Continue all of her evening dose of medications. Return to ER for any concerns. Scripts Risperidone (Risperdal) 0.25 Mg Tablet 0.25 MG PO evening, #5 TAB Prov: ARIELA WALLS APRN 10/11/18 Cefdinir (Cefdinir) 300 Mg Capsule 300 MG PO BID, #10 CAP 0 Refills Prov: ARIELA WALLS APRN 10/11/18 Copy Copies To 1: SHELLIE OLIVIER MD, PETER J APRN Oct 11, 2018 17:03
--- OUTSIDE RECORDS SUMMARY | 2018-10-11 17:03 | XMS REPORT | CCD ---
Author Author Morenita Don MD, [facility] Address [address] [place] [address] Phone Care Team Providers Care Geographic Area Intelligence Officer Name Role Phone PP Unavailable CCM Unavailable Summary Purpose Interface Exchange Insurance Providers Payer name Policy type / Coverage type Covered constitution party ID Effective Begin Date Effective End Date [place] [employer] Medicare Part B [id number] 2016 Unknown [employer] INSURANCE [employer] Medicare Part B [id number] Unknown Family history Father Diagnosis Age At Onset Myocardial infarction Unknown Mother Diagnosis Age At Onset Myocardial infarction Unknown Social History Social History Element Codes Description Effective Dates Marital status Unknown 11/29/2015 Number of children Unknown 2 son at 3hrs old 11/29/2015 Employment Unknown Retired 11/29/[address]: 111855207 Never smoker 11/29/[address]: 269764510 Never drinks alcohol 11/29/2015 Allergies, Adverse Reactions, [...] Instructions omeprazole 20 mg capsule,delayed release RxNorm: 125415 1 Capsule(s) PO daily TAKE ONE CAPSULE BY MOUTH ONCE DAILY 09/26/2018 03/24/2019 Active Diflucan 150 mg tablet RxNorm: 199334 1 Tablet(s) PO QW 09/26/2018 10/25/2018 Active metoprolol succinate ER 25 mg tablet,extended release 24 hr RxNorm: 140966 1 Tablet(s) PO daily 09/26/2018 06/22/2019 Active clonazepam 1 mg tablet RxNorm: 774424 1 Tablet(s) PO TID PRN 08/12/2018 11/09/2018 Active Mobic 15 mg tablet RxNorm: 910054 TAKE ONE TABLET BY MOUTH ONCE DAILY 08/11/2018 No Stop Date Active amlodipine 10 mg tablet RxNorm: 794773 TAKE ONE TABLET BY MOUTH ONCE DAILY 08/11/2018 09/25/2018 Inactive lisinopril 10 mg tablet RxNorm: 495764 TAKE ONE TABLET BY MOUTH ONCE DAILY 07/21/2018 09/25/2018 Inactive potassium chloride ER 10 mEq tablet,extended release RxNorm: 410079 TAKE TWO TABLETS BY MOUTH ONCE DAILY 07/01/2018 No Stop Date Active simvastatin 20 mg tablet RxNorm: 997471 TAKE ONE TABLET BY MOUTH ONCE DAILY IN THE EVENING 06/17/2018 No Stop Date Active omeprazole 20 mg capsule,delayed release RxNorm: 466705 TAKE ONE CAPSULE BY MOUTH ONCE DAILY 06/09/2018 09/25/2018 Inactive Miralax 17 gram oral powder packet RxNorm: 261745 1 packet PO every other day 05/26/2018 No Stop Date Active clonazepam 1 mg tablet RxNorm: 537654 1 Tablet(s) PO TID PRN 05/26/2018 08/11/2018 Inactive melatonin 3 mg tablet RxNorm: 852416 1-2 Tablet(s) PO HS PRN 04/24/2018 No Stop Date Active citalopram 40 mg tablet RxNorm: 125024 1 Tablet(s) PO daily 04/24/2018 10/20/2018 Active clonazepam 1 mg tablet RxNorm: 041213 1 Tablet(s) PO TID 04/09/2018 08/11/2018 Inactive citalopram 20 mg tablet RxNorm: 690161 1 Tablet(s) PO daily 01/23/2018 04/23/2018 Inactive metoprolol succinate ER 25 mg tablet,extended release 24 hr RxNorm: 372465 1 Tablet(s) PO daily 01/20/2018 09/25/2018 Inactive citalopram 10 mg tablet RxNorm: 645332 1 Tablet(s) PO daily 12/31/2017 01/22/2018 Inactive clonazepam 1 mg tablet RxNorm: 431292 1 Tablet(s) PO TID 10/09/2017 05/25/2018 Inactive omeprazole 20 mg capsule,delayed release RxNorm: 196820 Capsule(s) TAKE 1 CAPSULE BY MOUTH EVERY DAY 06/03/2017 02/27/2018 Inactive Mobic 15 mg tablet RxNorm: 665728 Tablet(s) 1 TABLET(S) PO DAILY 06/03/2017 02/27/2018 Inactive amlodipine 10 mg tablet RxNorm: 584194 Tablet(s) TAKE 1 TABLET BY MOUTH EVERY DAY 06/03/2017 02/27/2018 Inactive metoprolol succinate ER 25 mg tablet,extended release 24 hr RxNorm: 050209 1 Tablet(s) PO daily 06/03/2017 01/19/2018 Inactive lisinopril 10 mg tablet RxNorm: 540969 Tablet(s) TAKE 1 TABLET BY MOUTH EVERY DAY 06/03/2017 02/27/2018 Inactive Lexapro 20 mg tablet RxNorm: 572862 1 Tablet(s) PO QPM 06/03/2017 12/30/2017 Inactive clonazepam 1 mg tablet RxNorm: 722073 1 Tablet(s) PO TID 06/03/2017 10/08/2017 Inactive potassium chloride ER 10 mEq tablet,extended release RxNorm: 255976 Tablet(s) TAKE 2 TABLETS BY MOUTH EVERY DAY 06/03/2017 02/27/2018 Inactive simvastatin 20 mg tablet RxNorm: 015150 Tablet(s) 1 TABLET(S) PO QPM 06/03/2017 02/27/2018 Inactive Mobic 15 mg tablet RxNorm: 874054 1 TABLET(S) PO DAILY 04/23/2017 06/02/2017 Inactive lisinopril 10 mg tablet RxNorm: 659033 TAKE 1 TABLET BY MOUTH EVERY DAY 04/05/2017 06/02/2017 Inactive metoprolol succinate ER 25 mg tablet,extended release 24 hr RxNorm: 853610 1 Tablet(s) PO daily 02/01/2017 06/02/2017 Inactive Lexapro 20 mg tablet RxNorm: 082475 1 Tablet(s) PO QPM TAKE 1 TABLET BY MOUTH EVERY EVENING 02/01/2017 02/01/2017 Inactive Lexapro 20 mg tablet RxNorm: 971768 1 Tablet(s) PO QPM 1 TABLET(S) PO QPM TAKE 1 TABLET BY MOUTH EVERY EVENING 02/01/2017 06/02/2017 Inactive Patient requests 90 days supply clonazepam 1 mg tablet RxNorm: 167953 1 Tablet(s) PO TID 02/01/2017 06/02/2017 Inactive Lexapro 20 mg tablet RxNorm: 845118 1 Tablet(s) PO QPM 1 TABLET(S) PO QPM TAKE 1 TABLET BY MOUTH EVERY EVENING 02/01/2017 01/31/2017 Inactive Patient requests 90 days supply metoprolol succinate ER 25 mg tablet,extended release 24 hr RxNorm: 073695 1 Tablet(s) PO daily 02/01/2017 01/31/2017 Inactive amlodipine 10 mg tablet RxNorm: 919133 TAKE 1 TABLET BY MOUTH EVERY DAY 01/15/2017 06/02/2017 Inactive potassium chloride ER 10 mEq tablet,extended release RxNorm: 720947 TAKE 2 TABLETS BY MOUTH EVERY DAY 12/04/2016 06/02/2017 Inactive Lexapro 20 mg tablet RxNorm: 559261 TAKE 1 TABLET BY MOUTH EVERY EVENING 11/12/2016 01/31/2017 Inactive omeprazole 20 mg capsule,delayed release RxNorm: 181157 TAKE 1 CAPSULE BY MOUTH EVERY DAY 10/29/2016 10/28/2016 Inactive omeprazole 20 mg capsule,delayed release RxNorm: 612074 TAKE 1 CAPSULE BY MOUTH EVERY DAY 10/29/2016 06/02/2017 Inactive L-Methylfolate 15 mg tablet RxNorm: 1 Tablet(s) PO daily 10/08/2016 01/31/2017 Inactive clonazepam 1 mg tablet RxNorm: 552618 1 Tablet(s) PO BID 08/31/2016 01/31/2017 Inactive L-Methylfolate 15 mg tablet RxNorm: 1 Tablet(s) PO daily 08/28/2016 10/07/2016 Inactive lisinopril 20 mg tablet RxNorm: 287638 1 Tablet(s) PO daily 08/21/2016 11/18/2016 Inactive lisinopril 20 mg tablet RxNorm: 239297 1 Tablet(s) PO daily 08/21/2016 11/18/2016 Inactive Deplin (algal oil) 15 mg-90.314 mg capsule RxNorm: 1 Capsule(s) PO daily 08/21/2016 08/27/2016 Inactive Lexapro 20 mg tablet RxNorm: 316257 1 TABLET(S) PO QPM 07/27/2016 12/30/2017 Inactive simvastatin 20 mg tablet RxNorm: 666551 1 TABLET(S) PO QPM 05/24/2016 11/19/2016 Inactive Patient requests 90 days supply simvastatin 20 mg tablet RxNorm: 250479 1 Tablet(s) PO QPM 05/23/2016 05/23/2016 Inactive Lexapro 20 mg tablet RxNorm: 728644 1 Tablet(s) PO QPM 02/28/2016 02/28/2016 Inactive Lexapro 20 mg tablet RxNorm: 209951 1 Tablet(s) PO QPM 1 TABLET(S) PO QPM 02/28/2016 12/30/2017 Inactive Patient requests 90 days supply tramadol 50 mg tablet RxNorm: 911409 1 Tablet(s) PO Q6 as needed for pain 02/27/2016 04/11/2016 Inactive potassium chloride ER 10 mEq tablet,extended release RxNorm: 809593 TAKE 2 TABLETS BY MOUTH EVERY DAY 02/27/2016 11/22/2016 Inactive citalopram 20 mg tablet RxNorm: 239705 1 Tablet(s) PO QAM 02/27/2016 02/27/2016 Inactive clonazepam 1 mg tablet RxNorm: 471616 1 Tablet(s) PO BID 02/27/2016 12/30/2017 Inactive omeprazole 20 mg capsule,delayed release RxNorm: 022708 TAKE 1 CAPSULE BY MOUTH EVERY DAY 02/13/2016 10/28/2016 Inactive Mobic 15 mg tablet RxNorm: 986222 1 Tablet(s) PO daily 02/10/2016 02/03/2017 Inactive Multiple Vitamins Daily tablet RxNorm: 1 Tablet(s) PO daily 11/29/2015 12/28/2015 Inactive amlodipine 10 mg tablet RxNorm: 554918 1 Tablet(s) PO daily 11/29/2015 12/30/2017 Inactive simvastatin 20 mg tablet RxNorm: 609676 1 Tablet(s) PO QPM 11/29/2015 12/28/2015 Inactive clonazepam 1 mg tablet RxNorm: 451292 1 Tablet(s) PO Q12H 11/29/2015 12/30/2017 Inactive Colace 100 mg capsule RxNorm: 1937135 1 Capsule(s) PO daily 11/29/2015 11/29/2015 Inactive citalopram 20 mg tablet RxNorm: 655118 1 Tablet(s) PO QAM 11/29/2015 12/28/2015 Inactive Mobic 15 mg tablet RxNorm: 556814 1 Tablet(s) PO daily 11/29/2015 12/30/2017 Inactive potassium chloride ER 10 mEq tablet,extended release RxNorm: 017849 2 Tablet(s) PO daily 20meq daily 11/29/2015 12/28/2015 Inactive lisinopril 10 mg tablet RxNorm: 548667 1 Tablet(s) PO daily 11/29/2015 12/30/2017 Inactive Coricidin HBP 10 mg-200 mg capsule RxNorm: 0512075 1 Capsule(s) PO PRN No Start Date Active cranberry 400 mg capsule RxNorm: 235669 1 Capsule(s) PO daily No Start Date Active Vitamin D3 1,000 unit tablet RxNorm: 401076 1 Tablet(s) PO daily No Start Date Active docusate sodium 100 mg tablet RxNorm: 3422959 1 Tablet(s) PO daily No Start Date Active Mobic 15 mg tablet RxNorm: 103594 1 Tablet(s) PO daily No Start Date 02/09/2016 Inactive Vitamin D3 1,000 unit tablet RxNorm: 115156 1 Tablet(s) PO daily No Start Date 06/02/2017 Inactive omeprazole 20 mg tablet,delayed release RxNorm: 183805 1 Tablet(s) PO daily No Start Date 06/02/2017 Inactive potassium chloride ER 10 mEq tablet,extended release RxNorm: 087567 2 Tablet(s) PO daily No Start Date 06/02/2017 Inactive clonazepam 1 mg tablet RxNorm: 084195 1 Tablet(s) PO BID No Start Date 02/26/2016 Inactive Aleve PM 220 mg-25 mg tablet RxNorm: 7669138 1 Tablet(s) PO daily No Start Date 05/27/2016 Inactive amlodipine 10 mg tablet RxNorm: 239958 1 Tablet(s) PO daily No Start Date 01/14/2017 Inactive lisinopril 10 mg tablet RxNorm: 323385 1 Tablet(s) PO daily No Start Date 08/20/2016 Inactive tramadol 50 mg tablet RxNorm: 592679 1 Tablet(s) PO Q6 PRN No Start Date 02/26/2016 Inactive Ultram 50 mg tablet RxNorm: 730743 1 Tablet(s) PO Q6 as needed No Start Date 11/28/2015 Inactive simvastatin 20 mg tablet RxNorm: 164231 1 Tablet(s) PO QHS No Start Date 06/02/2017 Inactive citalopram 20 mg tablet RxNorm: 764522 1 Tablet(s) PO daily No Start Date 02/26/2016 Inactive lisinopril 10 mg tablet RxNorm: 772344 1 Tablet(s) PO daily No Start Date 04/04/2017 Inactive omeprazole 20 mg capsule,delayed release RxNorm: 114510 1 Capsule(s) PO daily No Start Date [...] Ord30 C/HDL 2.8 Ratio 10/09/2016 Comp Metabolic Jaw007 NA 136 mEq/L 10/09/2016 Comp Metabolic Egh113 K 4.9 mEq/L 10/09/2016 Comp Metabolic Dco696 CL 97 mEq/L 10/09/2016 Comp Metabolic Vrm592 CO2 30.0 mEq/L 10/09/2016 Comp Metabolic Ktp283 ANION GAP 14 10/09/2016 Comp Metabolic Kyv692 GLUCOSE 66 mg/dL 10/09/2016 Comp Metabolic Gdp148 Creat 0.9 mg/dL 10/09/2016 Comp Metabolic Xmw938 eGFR 64 ml/min/1.73m2 10/09/2016 Comp Metabolic Nwm235 BUN 13 mg/dL 10/09/2016 Comp Metabolic Bmy759 B/C Ratio 14.6 Ratio 10/09/2016 Comp Metabolic Xyx462 CALCIUM 10.0 mg/dL 10/09/2016 Comp Metabolic Wzy951 ALK PHOS 59 U/L 10/09/2016 Comp Metabolic Ofv250 AST(SGOT) 20 U/L 10/09/2016 Comp Metabolic Twk567 ALT(SGPT) 9 U/L 10/09/2016 Comp Metabolic Hvi623 BILI T 0.4 mg/dL 10/09/2016 Comp Metabolic Oub152 ALBUMIN 4.1 g/dL 10/09/2016 Comp Metabolic Ugp807 TPRO 7.1 g/dL 10/09/2016 Comp Metabolic Psi242 GLOB 3.0 g/dL 10/09/2016 Comp Metabolic Qwk607 A/G Ratio 1.4 Ratio 10/09/2016 Comp Metabolic Alk759 Osmo 270 mOsmo 10/09/2016 Tsh Ord6 hTSH [...] 31.2 pg 10/09/2016 Cbc With Differential Ord2 Barton% 13.7 % 10/09/2016 Cbc With Differential Ord2 [...] 1.49 K/ul 10/09/2016 Cbc With Differential Ord2 Barton ABS# 0.6 K/ul 10/09/2016 Cbc With Differential [...] 1994 Ears/Nose/Throat lips/teeth/gingiva Teeth: wears dentures 10/29/2017 [facility] Full Exam - General 1994 [...] 1: 164/82 Code: 8480-6 BMI: 26.0 Code: 82734-0 Heart Rate 1: 120 bpm Height: 5'5" SpO2: 95% Weight: 156 lbs 08/21/2016 Blood Pressure 1: 166/80 Code: 8480-6 BMI: 25.8 Code: 79399-4 Heart Rate 1: 105 bpm Height: 5'5" SpO2: 95% Weight: 155 lbs 05/28/2016 Blood Pressure 1: 142/74 Code: 8480-6 BMI: 25.3 Code: 65830-0 Heart Rate 1: 104 bpm Height: 5'5" SpO2: 96% Weight: 152 lbs 02/28/2016 Blood Pressure 1: 130/70 Code: 8480-6 BMI: 26.0 Code: 25582-7 Heart Rate 1: 100 bpm Height: 5'5" SpO2: 96% Weight: 156 lbs 11/29/2015 Blood Pressure 1: 130/70 Code: 8480-6 BMI: 25.5 Code: 42618-9 Heart Rate 1: 86 bpm Height: 5'5" [...] data Encounters Encounter Performer Location Codes Date ([id number]) 58214 EST. PATIENT, LEVEL IV Diagnosis: Essential (primary) hypertension[ICD10: I10] Diagnosis: Generalized anxiety disorder[ICD10: F41.1] Diagnosis: Pneumonia, unspecified organism[ICD10: J18.9] Diagnosis: Urinary tract infection, site not specified[ICD10: N39.0] Morenita Davenport MD, [facility] CPT-4: 91797 09/26/2018 ([id number]) 39403 EST. PATIENT, LEVEL IV Diagnosis: Slow transit constipation[ICD10: K59.01] Diagnosis: Generalized anxiety disorder[ICD10: F41.1] Diagnosis: Essential (primary) hypertension[ICD10: I10] Morenita Davenport MD, [facility] CPT-4: 41176 05/26/2018 ([id number]) 27013 EST. PATIENT, LEVEL IV Diagnosis: Essential (primary) hypertension[ICD10: I10] Diagnosis: Generalized anxiety disorder[ICD10: F41.1] Diagnosis: Other insomnia[ICD10: G47.09] Morenita Davenport MD, [facility] CPT-4: 71065 04/24/2018 ([id number]) 77551 EST. PATIENT, LEVEL IV Diagnosis: Essential (primary) hypertension[ICD10: I10] Diagnosis: Generalized anxiety disorder[ICD10: F41.1] Diagnosis: Major depressive disorder, recurrent, mild[ICD10: F33.0] Diagnosis: Unsteadiness on feet[ICD10: R26.81] Morenita Davenport MD, [facility] CPT-4: 99304 12/31/2017 86939 EST. PATIENT, LEVEL IV Diagnosis: Essential (primary) hypertension[ICD10: I10] Diagnosis: Hypoxemia[ICD10: R09.02] Diagnosis: Sleep related hypoventilation in conditions classified elsewhere[ICD10: G47.36] Tia Davenport MD, [facility] CPT-4: 33935 10/29/2017 ([id number]) 45158 EST. PATIENT, LEVEL IV Diagnosis: Essential (primary) hypertension[ICD10: I10] Diagnosis: Generalized anxiety disorder[ICD10: F41.1] Diagnosis: Major depressive disorder, recurrent, mild[ICD10: F33.0] Morenita Davenport MD, [facility] CPT-4: 75450 02/01/2017 ([id number]) 64005 EST. PATIENT, LEVEL IV Diagnosis: Essential (primary) hypertension[ICD10: I10] Diagnosis: Generalized anxiety disorder[ICD10: F41.1] Diagnosis: Major depressive disorder, recurrent, mild[ICD10: F33.0] Morenita Davenport MD, [facility] CPT-4: 14444 08/21/2016 ([id number]) 80702 EST. PATIENT, LEVEL IV Diagnosis: Generalized anxiety disorder[ICD10: F41.1] Diagnosis: Essential (primary) hypertension[ICD10: I10] Diagnosis: Gastro-esophageal reflux disease without esophagitis[ICD10: K21.9] Morenita Davenport MD, [facility] CPT-4: 34186 05/28/2016 ([id number]) 66697 EST. PATIENT, LEVEL IV Diagnosis: Generalized anxiety disorder[ICD10: F41.1] Diagnosis: Major depressive disorder, recurrent, mild[ICD10: F33.0] Diagnosis: Essential (primary) hypertension[ICD10: I10] Morenita Davenport MD, [facility] CPT-4: 23536 02/28/2016 ([id number]) OFFICE VISIT, NEW - LEVEL 4 Diagnosis: Essential (primary) hypertension[ICD10: I10] Diagnosis: Generalized anxiety disorder[ICD10: F41.1] Diagnosis: Mixed hyperlipidemia[ICD10: E78.2] Diagnosis: Major depressive disorder, recurrent, mild[ICD10: F33.0] Morenita Davenport MD, [facility] CPT-4: 91709 11/29/2015 Plan of Care Planned Activity Notes [...] treat with diflucan weekly x 1 month Tqqvcbspp-tdouqhil-ypeu to use oxygen prn Chronic Depression and anxiety - the pt has symptoms of chronic anxiety and depression that have been fairly well controlled since the last office visit. The pt has expected periods of exacerbation with abatement of the symptoms with change in situational exposure. No change in current medications. 09/26/2018 Patient Education: Patient Medication Summary Completed 09/26/2018 Patient Education: Hypertension Completed 09/26/2018 Appointment: Morenita Don WPtel: [phone] [phone] (30 min) Complex 09/08/2018 Visit Plan: Constipation [...] at home. 05/26/2018 Appointment: Morenita Don WPtel: [phone] [phone] (15 min) Moderate 05/26/2018 Patient Education: Patient [...] needed 04/24/2018 Appointment: Morenita Don WPtel: [phone] [phone] (30 min) Complex 04/24/2018 Patient Education: Patient Medication Summary Completed 04/24/2018 Patient Education: Hypertension Completed 04/24/2018 Appointment: Morenita Dontel: [phone] [phone] [place] (30 min) Complex 04/17/2018 Appointment: Morenita Dontel: [phone] [phone] (15 min) Moderate 04/04/2018 Appointment: Morenita Don WPtel: [phone] [phone] [place] (15 min) Moderate 03/06/2018 Appointment: Morenita Dontel: [phone] [phone] (15 min) Moderate 01/31/2018 Visit Plan: Hypertension [...] understanding. 12/31/2017 Appointment: Morenita Don WPtel: [phone] [phone] (30 min) Complex 12/31/2017 Patient Education: Patient [...] or concerns. 10/29/2017 Appointment: Tia Hernandez WPtel: [phone] (30 min) Complex 10/29/2017 Patient Education: Patient Medication Summary Completed 10/29/2017 Appointment: Morenita Don WPtel: [phone] [phone] (30 min) Complex 08/20/2017 Visit Plan: Hypertension [...] pt is to call for acute concerns. Haoayqh-dtprcuummh-uxesrjcrd patient get rid of house guest-he is taking advantage of her and causing her undue stress and worry. Increase clonazepam to TID prn-follow up in 2 weeks. 02/01/2017 Appointment: Morenita Don WPtel: [address] [place], [place] [phone] [place] [address] (15 min) Moderate 02/01/2017 Patient Education: Patient [...] pt is to call for acute concerns. Yktwnoj-wzxvsnaikn-qfr well controlled-add deplin-continue lexapro Patient has not had recent labs-will send orders for fasting labs 08/21/2016 Appointment: Morenita Don WPtel: [address] [place], [place] [phone] (15 min) Moderate 08/21/2016 Patient Education: Patient [...] any worse 05/28/2016 Appointment: Morenita Don WPtel: [address] [place], [place] [phone] (15 min) Moderate 05/28/2016 Patient Education: Patient [...] at home. 02/28/2016 Appointment: Morenita Don WPtel: [id number] [place] [address] (30 min) Complex 02/28/2016 Patient Education: Patient [...] alize response to medications. 11/29/2015 Appointment: Morenita Don WPtel: [phone] [place] [address] New Patient 11/29/2015 Patient Education: Patient Medication [...] increase effectiveness of lexapro: Recommend filling at [facility] in [place] due to affordability. . Hypertension - uncontrolled [...] pt is to call for acute concerns. Jfcotlo-gojaaqzsjt-nrt well controlled-add deplin-continue lexapro Patient has not [...] TO HELP WITH SLEEPING I WILL CALL CYMynor ABOUT HER CLONAZEPAM INCREASE CITALOPRAM TO 40MG [...] pt is to call for acute concerns. Jaxbypz-fmsugfossc-ulcxpalxw patient get rid of house guest-he is [...] treat with diflucan weekly x 1 month Mzvrjysgs-yacdqiyy-zrsg to use oxygen prn Chronic Depression and anxiety - the pt has symptoms of chronic anxiety and depression that have been fairly well controlled since the last office visit. The pt has expected periods of exacerbation with abatement of the symptoms with change in situational exposure. No change in current medications.
--- OUTSIDE RECORDS SUMMARY | 2018-10-11 17:07 | XMS REPORT | CCD ---
Author Author Morenita Don MD, [facility] Address [address] [place] [address] Phone Care Team Providers Care Dragline Oiler Name Role Phone PP Unavailable CCM Unavailable Summary Purpose Interface Exchange Insurance Providers Payer name Policy type / Coverage type Covered democrat ID Effective Begin Date Effective End Date [employer] Medicare Part B [id number] 2016 Unknown [employer] Medicare Part B [id number] 2016 Unknown Family history Father Diagnosis Age At Onset Myocardial infarction Unknown Mother Diagnosis Age At Onset Myocardial infarction Unknown Social History Social History Element Codes Description Effective Dates Marital status Unknown 11/29/2015 Number of children Unknown 2 son at 3hrs old 11/29/2015 Employment Unknown Retired 11/29/[address]: 326247142 Never smoker 11/29/[address]: 684363734 Never drinks alcohol 11/29/2015 Allergies, Adverse Reactions, Alerts Allergies, Adverse Reactions, Alerts data not found Past Medical History Illness Codes Condition Status Onset Date Resolved Date Encounter for general adult medical examination without abnormal findings ICD-9: V70.0 ICD-10: Z00.00 Active 08/23/2016 Unknown Essential (primary) hypertension ICD-9: 401.9 ICD-10: I10 Active 02/27/2016 Unknown Mixed hyperlipidemia ICD- 9: 272.2 ICD-10: E78.2 Active 11/28/2015 Unknown Hypertension Unknown Active 08/21/2016 Unknown Generalized anxiety disorder ICD-9: 300.02 ICD-10: F41.1 Active 02/27/2016 Unknown Major depressive disorder, recurrent, 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 Active 02/27/2016 Unknown Gastro-esophageal reflux disease without esophagitis ICD-9: 530.81 ICD-10: K21.9 Active 05/28/2016 Unknown Problems Condition Codes Effective Dates Condition Status Encounter for general adult medical examination without abnormal findings ICD-9: V70.0 ICD-10: Z00.00 08/23/2016 Active Essential (primary) hypertension ICD-9: 401.9 ICD-10: I10 02/27/2016 Active Mixed hyperlipidemia ICD- 9: 272.2 ICD-10: E78.2 11/28/2015 Active Hypertension Unknown 08/21/2016 Active Generalized anxiety disorder ICD-9: 300.02 ICD-10: F41.1 02/27/2016 Active Major depressive disorder, recurrent, 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 02/27/2016 Active Gastro-esophageal reflux disease without esophagitis ICD-9: 530.81 ICD-10: K21.9 05/28/2016 Active Medications Medication Codes Instructions Start Date Stop Date Status Fill Instructions Lexapro 20 mg tablet RxNorm: 967146 TAKE 1 TABLET BY MOUTH EVERY EVENING 11/12/2016 05/10/2017 Active omeprazole 20 mg capsule,delayed release RxNorm: 604668 TAKE 1 CAPSULE BY MOUTH EVERY DAY 10/29/2016 01/21/2018 Active omeprazole 20 mg capsule,delayed release RxNorm: 230532 TAKE 1 CAPSULE BY MOUTH EVERY DAY 10/29/2016 10/28/2016 Inactive L-Methylfolate 15 mg tablet RxNorm: 1 Tablet(s) PO daily 10/08/2016 04/05/2017 Active clonazepam 1 mg tablet RxNorm: 245738 1 Tablet(s) PO BID 08/31/2016 02/26/2017 Active L-Methylfolate 15 mg tablet RxNorm: 1 Tablet(s) PO daily 08/28/2016 10/07/2016 Inactive lisinopril 20 mg tablet RxNorm: 023505 1 Tablet(s) PO daily 08/21/2016 11/18/2016 Active lisinopril 20 mg tablet RxNorm: 561789 1 Tablet(s) PO daily 08/21/2016 11/18/2016 Active Deplin (algal oil) 15 mg-90.314 mg capsule RxNorm: 1 Capsule(s) PO daily 08/21/2016 08/27/2016 Inactive Lexapro 20 mg tablet RxNorm: 456366 1 TABLET(S) PO QPM 07/27/2016 10/24/2016 Inactive simvastatin 20 mg tablet RxNorm: 771286 1 TABLET(S) PO QPM 05/24/2016 11/19/2016 Active Patient requests 90 days supply simvastatin 20 mg tablet RxNorm: 776411 1 Tablet(s) PO QPM 05/23/2016 05/23/2016 Inactive Lexapro 20 mg tablet RxNorm: 160537 1 Tablet(s) PO QPM 1 TABLET(S) PO QPM 02/28/2016 08/25/2016 Inactive Patient requests 90 days supply Lexapro 20 mg tablet RxNorm: 609278 1 Tablet(s) PO QPM 02/28/2016 02/28/2016 Inactive potassium chloride ER 10 mEq tablet,extended release RxNorm: 902084 TAKE 2 TABLETS BY MOUTH EVERY DAY 02/27/2016 11/22/2016 Active clonazepam 1 mg tablet RxNorm: 254754 1 Tablet(s) PO BID 02/27/2016 05/25/2016 Inactive tramadol 50 mg tablet RxNorm: 719837 1 Tablet(s) PO Q6 as needed for pain 02/27/2016 04/11/2016 Inactive citalopram 20 mg tablet RxNorm: 114167 1 Tablet(s) PO QAM 02/27/2016 02/27/2016 Inactive omeprazole 20 mg capsule,delayed release RxNorm: 940010 TAKE 1 CAPSULE BY MOUTH EVERY DAY 02/13/2016 10/28/2016 Inactive Mobic 15 mg tablet RxNorm: 039128 1 Tablet(s) PO daily 02/10/2016 02/03/2017 Active amlodipine 10 mg tablet RxNorm: 704544 1 Tablet(s) PO daily 11/29/2015 12/28/2015 Inactive Multiple Vitamins Daily tablet RxNorm: 1 Tablet(s) PO daily 11/29/2015 12/28/2015 Inactive clonazepam 1 mg tablet RxNorm: 370768 1 Tablet(s) PO Q12H 11/29/2015 12/28/2015 Inactive Mobic 15 mg tablet RxNorm: 634304 1 Tablet(s) PO daily 11/29/2015 12/28/2015 Inactive lisinopril 10 mg tablet RxNorm: 467069 1 Tablet(s) PO daily 11/29/2015 12/26/2015 Inactive simvastatin 20 mg tablet RxNorm: 992100 1 Tablet(s) PO QPM 11/29/2015 12/28/2015 Inactive Colace 100 mg capsule RxNorm: 0426970 1 Capsule(s) PO daily 11/29/2015 11/29/2015 Inactive citalopram 20 mg tablet RxNorm: 710240 1 Tablet(s) PO QAM 11/29/2015 12/28/2015 Inactive potassium chloride ER 10 mEq tablet,extended release RxNorm: 655220 2 Tablet(s) PO daily 20meq daily 11/29/2015 12/28/2015 Inactive Vitamin D3 1,000 unit tablet RxNorm: 415309 1 Tablet(s) PO daily No Start Date Active Coricidin HBP 10 mg-200 mg capsule RxNorm: 1249450 1 Capsule(s) PO PRN No Start Date Active omeprazole 20 mg tablet,delayed release RxNorm: 998564 1 Tablet(s) PO daily No Start Date Active potassium chloride ER 10 mEq tablet,extended release RxNorm: 062528 2 Tablet(s) PO daily No Start Date Active cranberry 400 mg capsule RxNorm: 949723 1 Capsule(s) PO daily No Start Date Active amlodipine 10 mg tablet RxNorm: 035261 1 Tablet(s) PO daily No Start Date Active Vitamin D3 1,000 unit tablet RxNorm: 569198 1 Tablet(s) PO daily No Start Date Active simvastatin 20 mg tablet RxNorm: 536515 1 Tablet(s) PO QHS No Start Date Active docusate sodium 100 mg tablet RxNorm: 9120737 1 Tablet(s) PO daily No Start Date Active Mobic 15 mg tablet RxNorm: 650527 1 Tablet(s) PO daily No Start Date 02/09/2016 Inactive clonazepam 1 mg tablet RxNorm: 878814 1 Tablet(s) PO BID No Start Date 02/26/2016 Inactive Aleve PM 220 mg-25 mg tablet RxNorm: 8871829 1 Tablet(s) PO daily No Start Date 05/27/2016 Inactive lisinopril 10 mg tablet RxNorm: 937106 1 Tablet(s) PO daily No Start Date 08/20/2016 Inactive tramadol 50 mg tablet RxNorm: 825534 1 Tablet(s) PO Q6 PRN No Start Date 02/26/2016 Inactive Ultram 50 mg tablet RxNorm: 487159 1 Tablet(s) PO Q6 as needed No Start Date 11/28/2015 Inactive citalopram 20 mg tablet RxNorm: 618020 1 Tablet(s) PO daily No Start Date 02/26/2016 Inactive omeprazole 20 mg capsule,delayed release RxNorm: 222793 1 Capsule(s) PO daily No Start Date 02/12/2016 Inactive Medication Administered No Medication Administered data Immunizations No Immunization data Assessments Condition Codes Effective Dates Mixed hyperlipidemia ICD-10: E78.2 ICD-9: 272.2 08/23/2016 Essential (primary) hypertension ICD-10: I10 ICD-9: 401.9 08/23/2016 Encounter for general adult medical examination without abnormal findings ICD-10: Z00.00 ICD-9: V70.0 08/23/2016 Generalized anxiety disorder ICD-10: F41.1 ICD-9: 300.02 08/21/2016 Major depressive disorder, recurrent, mild ICD-10: F33.0 ICD-9: 296.31 08/21/2016 Gastro-esophageal reflux disease without esophagitis ICD-10: K21.9 ICD-9: 530.81 05/28/2016 Reason For Visit Reason For Visit Effective Dates Notes hypertension 08/21/2016 hypertension 05/28/2016 hypertension 02/28/2016 cerumen 11/29/2015 Results Observation Observation Code Item Item Code Result Date Lipid Ord30 CHOL 155 mg/dL 10/09/2016 Lipid Ord30 HDL 55.0 mg/dl 10/09/2016 Lipid Ord30 TRIG 121 mg/dL 10/09/2016 Lipid Ord30 LDL 76 mg/dL 10/09/2016 Lipid Ord30 C/HDL 2.8 Ratio 10/09/2016 Comp Metabolic Mzl924 NA 136 mEq/L 10/09/2016 Comp Metabolic Rah838 K 4.9 mEq/L 10/09/2016 Comp Metabolic Fmd148 CL 97 mEq/L 10/09/2016 Comp Metabolic Wso309 CO2 30.0 mEq/L 10/09/2016 Comp Metabolic Kcn241 ANION GAP 14 10/09/2016 Comp Metabolic Mcy980 GLUCOSE 66 mg/dL 10/09/2016 Comp Metabolic Ohr863 Creat 0.9 mg/dL 10/09/2016 Comp Metabolic Rvr293 eGFR 64 ml/min/1.73m2 10/09/2016 Comp Metabolic Ggg040 BUN 13 mg/dL 10/09/2016 Comp Metabolic Ljm635 B/C Ratio 14.6 Ratio 10/09/2016 Comp Metabolic Rfq029 CALCIUM 10.0 mg/dL 10/09/2016 Comp Metabolic Jpf216 ALK PHOS 59 U/L 10/09/2016 Comp Metabolic Lhp913 AST(SGOT) 20 U/L 10/09/2016 Comp Metabolic Ovj711 ALT(SGPT) 9 U/L 10/09/2016 Comp Metabolic Fmb561 BILI T 0.4 mg/dL 10/09/2016 Comp Metabolic Uau557 ALBUMIN 4.1 g/dL 10/09/2016 Comp Metabolic Omq030 TPRO 7.1 g/dL 10/09/2016 Comp Metabolic Bnl992 GLOB 3.0 g/dL 10/09/2016 Comp Metabolic Ppq801 A/G Ratio 1.4 Ratio 10/09/2016 Comp Metabolic Upg406 Osmo 270 mOsmo 10/09/2016 Tsh Ord6 hTSH [...] 31.2 pg 10/09/2016 Cbc With Differential Ord2 Rich% 13.7 % 10/09/2016 Cbc With Differential Ord2 [...] 1.49 K/ul 10/09/2016 Cbc With Differential Ord2 Rich ABS# 0.6 K/ul 10/09/2016 Cbc With Differential Ord2 Eos ABS# 0.1 K/ul 10/09/2016 Cbc With Differential Ord2 Baso ABS# 0.0 K/ul 10/09/2016 Review of Systems System Result Effective Dates Constitutional recent illness 08/21/2016 Constitutional No anorexia [...] 1994 Ears/Nose/Throat lips/teeth/gingiva Teeth: wears dentures 05/28/2016 [facility] Full Exam - General [...] 1994 Ears/Nose/Throat lips/teeth/gingiva Teeth: wears dentures 02/28/2016 [facility] Full Exam - General [...] 1994 Ears/Nose/Throat lips/teeth/gingiva Teeth: wears dentures 11/29/2015 [facility] Full Exam - General 1994 Eyes conjunctiva/eyelids [...] No Procedures data Vital Signs Date Vital 08/21/2016 Blood Pressure 1: 166/80 Code: 8480-6 BMI: 25.8 Code: 62594-2 Heart Rate 1: 105 bpm Height: 5'5" SpO2: 95% Weight: 155 lbs 05/28/2016 Blood Pressure 1: 142/74 Code: 8480-6 BMI: 25.3 Code: 83877-2 Heart Rate 1: 104 bpm Height: 5'5" SpO2: 96% Weight: 152 lbs 02/28/2016 Blood Pressure 1: 130/70 Code: 8480-6 BMI: 26.0 Code: 34770-9 Heart Rate 1: 100 bpm Height: 5'5" SpO2: 96% Weight: 156 lbs 11/29/2015 Blood Pressure 1: 130/70 Code: 8480-6 BMI: 25.5 Code: 83489-8 Heart Rate 1: 86 bpm Height: 5'5" SpO2: 96% Weight: 153 lbs Functional Status No Functional Status data History of Present Illness Symptom Name Status Result Effective Date Notes hypertension Quality intermittent 08/21/2016 None hypertension Onset [...] data Encounters Encounter Performer Location Codes Date ([id number]) 13241 EST. PATIENT, LEVEL IV Diagnosis: Essential (primary) hypertension[ICD10: I10] Diagnosis: Generalized anxiety disorder[ICD10: F41.1] Diagnosis: Major depressive disorder, recurrent, mild[ICD10: F33.0] Morenita Davenport MD, [facility] CPT-4: 22213 08/21/2016 ([id number]) 99894 EST. PATIENT, LEVEL IV Diagnosis: Generalized anxiety disorder[ICD10: F41.1] Diagnosis: Essential (primary) hypertension[ICD10: I10] Diagnosis: Gastro-esophageal reflux disease without esophagitis[ICD10: K21.9] Morenita Davenport MD, [facility] CPT-4: 74419 05/28/[id number]) 15856 EST. PATIENT, LEVEL IV Diagnosis: Generalized anxiety disorder[ICD10: F41.1] Diagnosis: Major depressive disorder, recurrent, mild[ICD10: F33.0] Diagnosis: Essential (primary) hypertension[ICD10: I10] Morenita Davenport MD, [facility] CPT-4: 88150 02/28/2016 ([id number]) OFFICE VISIT, NEW - LEVEL 4 Diagnosis: Essential (primary) hypertension[ICD10: I10] Diagnosis: Generalized anxiety disorder[ICD10: F41.1] Diagnosis: Mixed hyperlipidemia[ICD10: E78.2] Diagnosis: Major depressive disorder, recurrent, mild[ICD10: F33.0] Morenita Davenport MD, [facility] CPT-4: 99164 11/29/2015 Plan of Care Planned Activity Notes Codes Status Date Patient Education: Patient Medication Summary Completed 08/23/2016 [...] the office next week for practitioner to review.The pt is to call for acute concerns.Leewzoi-wboxpjqjjk-diy well controlled-add deplin-continue lexapro Patient has not had recent labs-will send orders for fasting labs 08/21/2016 Appointment: Morenita Don WPtel: [address] (15 min) Moderate 08/21/2016 Patient Education: Patient [...] in situational exposure. No change in current medications.Hypertension - well controlled - continue with current medications, continue with no added salt diet. Pt has been encouraged to exercise daily.The pt has been advised to call the office if there are any acute concerns about change in blood pressure readings at home.GERD-nighttime cough-increase omeprazole to twice daily-call if symptoms do not resolve or if any worse 05/28/2016 Appointment: Morenita Don WPtel: [facility] [place] [phone] (15 min) Moderate 05/28/2016 Patient Education: Patient [...] diet. Pt has been encouraged to exercise daily.The pt has been advised to call the office if there are any acute concerns about change in blood pressure readings at home. 02/28/2016 Appointment: Morenita Don WPtel: [facility] [place] [address] (30 min) Complex 02/28/2016 Patient Education: Patient Medication Summary Completed 02/28/2016 Visit Plan: Hypertension - well controlled - continue with current medications, continue with no added salt diet. Pt has been encouraged to exercise daily.The pt has been advised to call the office if there are any acute concerns about change in blood pressure readings at home.Chronic Depression and anxiety - the pt has [...] medications. 11/29/2015 Appointment: Morenita Don WPtel: [phone] [id number] New Patient 11/29/2015 Patient Education: Patient Medication [...] increase effectiveness of lexapro: Recommend filling at [facility] in [place] due to affordability. . Hypertension - uncontrolled [...] pt is to call for acute concerns. Suezjbn-meaamznxjz-dii well controlled-add deplin-continue lexapro Patient has not had recent labs-will send orders for fasting labs
--- OUTSIDE RECORDS SUMMARY | 2018-10-11 17:07 | XMS REPORT | CCD ---
Author Author Morenita Don MD, [facility] Address [address] [place] [address] Phone Care Team Providers Care Hydraulic Repairer Name Role Phone PP Unavailable CCM Unavailable Summary Purpose Interface Exchange Insurance Providers Payer name Policy type / Coverage type Covered libertarian ID Effective Begin Date Effective End Date [employer] Medicare Part B [id number] 2016 Unknown [employer] Medicare Part B [id number] 2016 Unknown Family history Father Diagnosis Age At Onset Myocardial infarction Unknown Mother Diagnosis Age At Onset Myocardial infarction Unknown Social History Social History Element Codes Description Effective Dates Marital status Unknown 11/29/2015 Number of children Unknown 2 son at 3hrs old 11/29/2015 Employment Unknown Retired 11/29/[address]: 823922363 Never smoker 11/29/[address]: 302902685 Never drinks alcohol 11/29/2015 Allergies, Adverse Reactions, [...] Instructions omeprazole 20 mg capsule,delayed release RxNorm: 260610 TAKE 1 CAPSULE BY MOUTH EVERY DAY 10/29/2016 01/21/2018 Active omeprazole 20 mg capsule,delayed release RxNorm: 195814 TAKE 1 CAPSULE BY MOUTH EVERY DAY 10/29/2016 10/28/2016 Inactive L-Methylfolate 15 mg tablet RxNorm: 1 Tablet(s) PO daily 10/08/2016 04/05/2017 Active clonazepam 1 mg tablet RxNorm: 291612 1 Tablet(s) PO BID 08/31/2016 02/26/2017 Active L-Methylfolate 15 mg tablet RxNorm: 1 Tablet(s) PO daily 08/28/2016 10/07/2016 Inactive lisinopril 20 mg tablet RxNorm: 888525 1 Tablet(s) PO daily 08/21/2016 11/18/2016 Active lisinopril 20 mg tablet RxNorm: 819372 1 Tablet(s) PO daily 08/21/2016 11/18/2016 Active Deplin (algal oil) 15 mg-90.314 mg capsule RxNorm: 1 Capsule(s) PO daily 08/21/2016 08/27/2016 Inactive Lexapro 20 mg tablet RxNorm: 670771 1 TABLET(S) PO QPM 07/27/2016 10/24/2016 Inactive simvastatin 20 mg tablet RxNorm: 335451 1 TABLET(S) PO QPM 05/24/2016 11/19/2016 Active Patient requests 90 days supply simvastatin 20 mg tablet RxNorm: 274535 1 Tablet(s) PO QPM 05/23/2016 05/23/2016 Inactive Lexapro 20 mg tablet RxNorm: 808825 1 Tablet(s) PO QPM 1 TABLET(S) PO QPM 02/28/2016 08/25/2016 Inactive Patient requests 90 days supply Lexapro 20 mg tablet RxNorm: 494709 1 Tablet(s) PO QPM 02/28/2016 02/28/2016 Inactive potassium chloride ER 10 mEq tablet,extended release RxNorm: 451028 TAKE 2 TABLETS BY MOUTH EVERY DAY 02/27/2016 11/22/2016 Active clonazepam 1 mg tablet RxNorm: 398352 1 Tablet(s) PO BID 02/27/2016 05/25/2016 Inactive tramadol 50 mg tablet RxNorm: 251759 1 Tablet(s) PO Q6 as needed for pain 02/27/2016 04/11/2016 Inactive citalopram 20 mg tablet RxNorm: 668476 1 Tablet(s) PO QAM 02/27/2016 02/27/2016 Inactive omeprazole 20 mg capsule,delayed release RxNorm: 998645 TAKE 1 CAPSULE BY MOUTH EVERY DAY 02/13/2016 10/28/2016 Inactive Mobic 15 mg tablet RxNorm: 450259 1 Tablet(s) PO daily 02/10/2016 02/03/2017 Active amlodipine 10 mg tablet RxNorm: 204751 1 Tablet(s) PO daily 11/29/2015 12/28/2015 Inactive Multiple Vitamins Daily tablet RxNorm: 1 Tablet(s) PO daily 11/29/2015 12/28/2015 Inactive clonazepam 1 mg tablet RxNorm: 771782 1 Tablet(s) PO Q12H 11/29/2015 12/28/2015 Inactive Mobic 15 mg tablet RxNorm: 003294 1 Tablet(s) PO daily 11/29/2015 12/28/2015 Inactive lisinopril 10 mg tablet RxNorm: 766041 1 Tablet(s) PO daily 11/29/2015 12/26/2015 Inactive simvastatin 20 mg tablet RxNorm: 554402 1 Tablet(s) PO QPM 11/29/2015 12/28/2015 Inactive Colace 100 mg capsule RxNorm: 1537354 1 Capsule(s) PO daily 11/29/2015 11/29/2015 Inactive citalopram 20 mg tablet RxNorm: 469193 1 Tablet(s) PO QAM 11/29/2015 12/28/2015 Inactive potassium chloride ER 10 mEq tablet,extended release RxNorm: 372342 2 Tablet(s) PO daily 20meq daily 11/29/2015 12/28/2015 Inactive Vitamin D3 1,000 unit tablet RxNorm: 420035 1 Tablet(s) PO daily No Start Date Active Coricidin HBP 10 mg-200 mg capsule RxNorm: 0849109 1 Capsule(s) PO PRN No Start Date Active omeprazole 20 mg tablet,delayed release RxNorm: 252502 1 Tablet(s) PO daily No Start Date Active potassium chloride ER 10 mEq tablet,extended release RxNorm: 815655 2 Tablet(s) PO daily No Start Date Active cranberry 400 mg capsule RxNorm: 391384 1 Capsule(s) PO daily No Start Date Active amlodipine 10 mg tablet RxNorm: 914559 1 Tablet(s) PO daily No Start Date Active Vitamin D3 1,000 unit tablet RxNorm: 931712 1 Tablet(s) PO daily No Start Date Active simvastatin 20 mg tablet RxNorm: 449511 1 Tablet(s) PO QHS No Start Date Active docusate sodium 100 mg tablet RxNorm: 2487318 1 Tablet(s) PO daily No Start Date Active Mobic 15 mg tablet RxNorm: 648198 1 Tablet(s) PO daily No Start Date 02/09/2016 Inactive clonazepam 1 mg tablet RxNorm: 011974 1 Tablet(s) PO BID No Start Date 02/26/2016 Inactive Aleve PM 220 mg-25 mg tablet RxNorm: 0159621 1 Tablet(s) PO daily No Start Date 05/27/2016 Inactive lisinopril 10 mg tablet RxNorm: 795507 1 Tablet(s) PO daily No Start Date 08/20/2016 Inactive tramadol 50 mg tablet RxNorm: 441528 1 Tablet(s) PO Q6 PRN No Start Date 02/26/2016 Inactive Ultram 50 mg tablet RxNorm: 846358 1 Tablet(s) PO Q6 as needed No Start Date 11/28/2015 Inactive citalopram 20 mg tablet RxNorm: 124187 1 Tablet(s) PO daily No Start Date 02/26/2016 Inactive omeprazole 20 mg capsule,delayed release RxNorm: 424025 1 Capsule(s) PO daily No Start Date [...] Ord30 C/HDL 2.8 Ratio 10/09/2016 Comp Metabolic Cac334 NA 136 mEq/L 10/09/2016 Comp Metabolic Fio444 K 4.9 mEq/L 10/09/2016 Comp Metabolic Ami158 CL 97 mEq/L 10/09/2016 Comp Metabolic Qhv957 CO2 30.0 mEq/L 10/09/2016 Comp Metabolic Szn227 ANION GAP 14 10/09/2016 Comp Metabolic Azk940 GLUCOSE 66 mg/dL 10/09/2016 Comp Metabolic Ddw613 Creat 0.9 mg/dL 10/09/2016 Comp Metabolic Kll141 eGFR 64 ml/min/1.73m2 10/09/2016 Comp Metabolic Zud210 BUN 13 mg/dL 10/09/2016 Comp Metabolic Hek286 B/C Ratio 14.6 Ratio 10/09/2016 Comp Metabolic Pvh580 CALCIUM 10.0 mg/dL 10/09/2016 Comp Metabolic Nlu564 ALK PHOS 59 U/L 10/09/2016 Comp Metabolic Fhy634 AST(SGOT) 20 U/L 10/09/2016 Comp Metabolic Lli041 ALT(SGPT) 9 U/L 10/09/2016 Comp Metabolic Rjm653 BILI T 0.4 mg/dL 10/09/2016 Comp Metabolic Pwx983 ALBUMIN 4.1 g/dL 10/09/2016 Comp Metabolic Asm702 TPRO 7.1 g/dL 10/09/2016 Comp Metabolic Msf577 GLOB 3.0 g/dL 10/09/2016 Comp Metabolic Mdt804 A/G Ratio 1.4 Ratio 10/09/2016 Comp Metabolic Fir013 Osmo 270 mOsmo 10/09/2016 Tsh Ord6 hTSH [...] 31.2 pg 10/09/2016 Cbc With Differential Ord2 [place]% 13.7 % 10/09/2016 Cbc With Differential Ord2 [...] 1.49 K/ul 10/09/2016 Cbc With Differential Ord2 [place] ABS# 0.6 K/ul 10/09/2016 Cbc With Differential [...] 1: 166/80 Code: 8480-6 BMI: 25.8 Code: 66578-8 Heart Rate 1: 105 bpm Height: 5'5" SpO2: 95% Weight: 155 lbs 05/28/2016 Blood Pressure 1: 142/74 Code: 8480-6 BMI: 25.3 Code: 77654-0 Heart Rate 1: 104 bpm Height: 5'5" SpO2: 96% Weight: 152 lbs 02/28/2016 Blood Pressure 1: 130/70 Code: 8480-6 BMI: 26.0 Code: 31149-6 Heart Rate 1: 100 bpm Height: 5'5" SpO2: 96% Weight: 156 lbs 11/29/2015 Blood Pressure 1: 130/70 Code: 8480-6 BMI: 25.5 Code: 77117-5 Heart Rate 1: 86 bpm Height: 5'5" [...] data Encounters Encounter Performer Location Codes Date ([id number]) 77137 EST. PATIENT, LEVEL IV Diagnosis: Essential (primary) hypertension[ICD10: I10] Diagnosis: Generalized anxiety disorder[ICD10: F41.1] Diagnosis: Major depressive disorder, recurrent, mild[ICD10: F33.0] Morenita Davenport MD, [facility] CPT-4: 37956 08/21/2016 [id number]) 86619 EST. PATIENT, LEVEL IV Diagnosis: Generalized anxiety disorder[ICD10: F41.1] Diagnosis: Essential (primary) hypertension[ICD10: I10] Diagnosis: Gastro-esophageal reflux disease without esophagitis[ICD10: K21.9] Morenita Davenprot MD, [facility] CPT-4: 12074 05/28/2016 [id number]) 89963 EST. PATIENT, LEVEL IV Diagnosis: Generalized anxiety disorder[ICD10: F41.1] Diagnosis: Major depressive disorder, recurrent, mild[ICD10: F33.0] Diagnosis: Essential (primary) hypertension[ICD10: I10] Morenita Davenport MD, [facility] CPT-4: 04330 02/28/2016 ([id number]) OFFICE VISIT, NEW - LEVEL 4 Diagnosis: Essential (primary) hypertension[ICD10: I10] Diagnosis: Generalized anxiety disorder[ICD10: F41.1] Diagnosis: Mixed hyperlipidemia[ICD10: E78.2] Diagnosis: Major depressive disorder, recurrent, mild[ICD10: F33.0] Morenita Davenport MD, [facility] CPT-4: 35331 11/29/2015 Plan of Care Planned Activity Notes [...] review.The pt is to call for acute concerns.Oycjkvn-tgdgotyfit-sqp well controlled-add deplin-continue lexapro Patient has not had recent labs-will send orders for fasting labs 08/21/2016 Appointment: Morenita Don WPtel: [facility] [address] (15 min) Moderate 08/21/2016 Patient Education: [...] any worse 05/28/2016 Appointment: Morenita Don WPtel: [facility] [place] [phone] (15 min) Moderate 05/28/2016 Patient Education: Patient [...] home. 02/28/2016 Appointment: [phone] (30 min) Complex 02/28/2016 Patient Education: Patient [...] medications. 11/29/2015 Appointment: [phone] New Patient 11/29/2015 Patient Education: Patient Medication [...] increase effectiveness of lexapro: Recommend filling at [facility] in [place] due to affordability. . Hypertension - uncontrolled [...] pt is to call for acute concerns. Fuyjrnl-obuhtjvssv-yhk well controlled-add deplin-continue lexapro Patient has not had recent labs-will send orders for fasting labs
--- OUTSIDE RECORDS SUMMARY | 2018-10-11 17:08 | XMS REPORT | CCD ---
Author Author Morenita Don MD, [facility] Address [address] [place] [address] Phone Care Team Providers Care Holter Technician Name Role Phone PP Unavailable CCM Unavailable Summary Purpose Interface Exchange Insurance Providers Payer name Policy type / Coverage type Covered republican ID Effective Begin Date Effective End Date [employer] Medicare Part B [id number] 2016 Unknown [employer] Medicare Part B [id number] 2016 Unknown Family history Father Diagnosis Age At Onset Myocardial infarction Unknown Mother Diagnosis Age At Onset Myocardial infarction Unknown Social History Social History Element Codes Description Effective Dates Marital status Unknown 11/29/2015 Number of children Unknown 2 son at 3hrs old 11/29/2015 Employment Unknown Retired 11/29/[address]: 977095886 Never smoker 11/29/[address]: 113408668 Never drinks alcohol 11/29/2015 Allergies, Adverse Reactions, [...] Start Date Stop Date Status Fill Instructions L-Methylfolate 15 mg tablet RxNorm: 1 Tablet(s) PO daily 10/08/2016 04/05/2017 Active clonazepam 1 mg tablet RxNorm: 996607 1 Tablet(s) PO BID 08/31/2016 02/26/2017 Active L-Methylfolate 15 mg tablet RxNorm: 1 Tablet(s) PO daily 08/28/2016 10/07/2016 Inactive lisinopril 20 mg tablet RxNorm: 334511 1 Tablet(s) PO daily 08/21/2016 11/18/2016 Active lisinopril 20 mg tablet RxNorm: 601435 1 Tablet(s) PO daily 08/21/2016 11/18/2016 Active Deplin (algal oil) 15 mg-90.314 mg capsule RxNorm: 1 Capsule(s) PO daily 08/21/2016 08/27/2016 Inactive Lexapro 20 mg tablet RxNorm: 182247 1 TABLET(S) PO QPM 07/27/2016 10/24/2016 Active simvastatin 20 mg tablet RxNorm: 528415 1 TABLET(S) PO QPM 05/24/2016 11/19/2016 Active Patient requests 90 days supply simvastatin 20 mg tablet RxNorm: 894522 1 Tablet(s) PO QPM 05/23/2016 05/23/2016 Inactive Lexapro 20 mg tablet RxNorm: 317722 1 Tablet(s) PO QPM 1 TABLET(S) PO QPM 02/28/2016 08/25/2016 Inactive Patient requests 90 days supply Lexapro 20 mg tablet RxNorm: 342783 1 Tablet(s) PO QPM 02/28/2016 02/28/2016 Inactive potassium chloride ER 10 mEq tablet,extended release RxNorm: 136964 TAKE 2 TABLETS BY MOUTH EVERY DAY 02/27/2016 11/22/2016 Active clonazepam 1 mg tablet RxNorm: 557309 1 Tablet(s) PO BID 02/27/2016 05/25/2016 Inactive tramadol 50 mg tablet RxNorm: 535643 1 Tablet(s) PO Q6 as needed for pain 02/27/2016 04/11/2016 Inactive citalopram 20 mg tablet RxNorm: 689073 1 Tablet(s) PO QAM 02/27/2016 02/27/2016 Inactive omeprazole 20 mg capsule,delayed release RxNorm: 926423 TAKE 1 CAPSULE BY MOUTH EVERY DAY 02/13/2016 11/08/2016 Active Mobic 15 mg tablet RxNorm: 713880 1 Tablet(s) PO daily 02/10/2016 02/03/2017 Active amlodipine 10 mg tablet RxNorm: 049461 1 Tablet(s) PO daily 11/29/2015 12/28/2015 Inactive Multiple Vitamins Daily tablet RxNorm: 1 Tablet(s) PO daily 11/29/2015 12/28/2015 Inactive clonazepam 1 mg tablet RxNorm: 987923 1 Tablet(s) PO Q12H 11/29/2015 12/28/2015 Inactive Mobic 15 mg tablet RxNorm: 880704 1 Tablet(s) PO daily 11/29/2015 12/28/2015 Inactive lisinopril 10 mg tablet RxNorm: 696768 1 Tablet(s) PO daily 11/29/2015 12/26/2015 Inactive simvastatin 20 mg tablet RxNorm: 817828 1 Tablet(s) PO QPM 11/29/2015 12/28/2015 Inactive Colace 100 mg capsule RxNorm: 0842271 1 Capsule(s) PO daily 11/29/2015 11/29/2015 Inactive citalopram 20 mg tablet RxNorm: 279778 1 Tablet(s) PO QAM 11/29/2015 12/28/2015 Inactive potassium chloride ER 10 mEq tablet,extended release RxNorm: 034201 2 Tablet(s) PO daily 20meq daily 11/29/2015 12/28/2015 Inactive Vitamin D3 1,000 unit tablet RxNorm: 803394 1 Tablet(s) PO daily No Start Date Active Coricidin HBP 10 mg-200 mg capsule RxNorm: 0497252 1 Capsule(s) PO PRN No Start Date Active omeprazole 20 mg tablet,delayed release RxNorm: 147654 1 Tablet(s) PO daily No Start Date Active potassium chloride ER 10 mEq tablet,extended release RxNorm: 020019 2 Tablet(s) PO daily No Start Date Active cranberry 400 mg capsule RxNorm: 953257 1 Capsule(s) PO daily No Start Date Active amlodipine 10 mg tablet RxNorm: 534397 1 Tablet(s) PO daily No Start Date Active Vitamin D3 1,000 unit tablet RxNorm: 383792 1 Tablet(s) PO daily No Start Date Active simvastatin 20 mg tablet RxNorm: 404635 1 Tablet(s) PO QHS No Start Date Active docusate sodium 100 mg tablet RxNorm: 6072682 1 Tablet(s) PO daily No Start Date Active Mobic 15 mg tablet RxNorm: 109801 1 Tablet(s) PO daily No Start Date 02/09/2016 Inactive clonazepam 1 mg tablet RxNorm: 572903 1 Tablet(s) PO BID No Start Date 02/26/2016 Inactive Aleve PM 220 mg-25 mg tablet RxNorm: 9304215 1 Tablet(s) PO daily No Start Date 05/27/2016 Inactive lisinopril 10 mg tablet RxNorm: 942951 1 Tablet(s) PO daily No Start Date 08/20/2016 Inactive tramadol 50 mg tablet RxNorm: 853605 1 Tablet(s) PO Q6 PRN No Start Date 02/26/2016 Inactive Ultram 50 mg tablet RxNorm: 278800 1 Tablet(s) PO Q6 as needed No Start Date 11/28/2015 Inactive citalopram 20 mg tablet RxNorm: 808109 1 Tablet(s) PO daily No Start Date 02/26/2016 Inactive omeprazole 20 mg capsule,delayed release RxNorm: 041328 1 Capsule(s) PO daily No Start Date [...] Observation Code Item Item Code Result Date Tsh Ord6 hTSH II 1.11 uIU/mL 10/09/2016 Review of Systems System Result Effective [...] 1994 Ears/Nose/Throat lips/teeth/gingiva Teeth: wears dentures 05/28/2016 [facility] Full Exam - General 1994 Respiratory [...] 1994 Ears/Nose/Throat lips/teeth/gingiva Teeth: wears dentures 02/28/2016 [facility] Full Exam - General 1994 Respiratory [...] 1: 166/80 Code: 8480-6 BMI: 25.8 Code: 23138-8 Heart Rate 1: 105 bpm Height: 5'5" SpO2: 95% Weight: 155 lbs 05/28/2016 Blood Pressure 1: 142/74 Code: 8480-6 BMI: 25.3 Code: 06879-3 Heart Rate 1: 104 bpm Height: 5'5" SpO2: 96% Weight: 152 lbs 02/28/2016 Blood Pressure 1: 130/70 Code: 8480-6 BMI: 26.0 Code: 08649-9 Heart Rate 1: 100 bpm Height: 5'5" SpO2: 96% Weight: 156 lbs 11/29/2015 Blood Pressure 1: 130/70 Code: 8480-6 BMI: 25.5 Code: 50465-6 Heart Rate 1: 86 bpm Height: 5'5" [...] data Encounters Encounter Performer Location Codes Date ([id number]) 48296 EST. PATIENT, LEVEL IV Diagnosis: Essential (primary) hypertension[ICD10: I10] Diagnosis: Generalized anxiety disorder[ICD10: F41.1] Diagnosis: Major depressive disorder, recurrent, mild[ICD10: F33.0] Morenita Davenport MD, [facility] CPT-4: 34536 08/21/2016 [id number]) 08259 EST. PATIENT, LEVEL IV Diagnosis: Generalized anxiety disorder[ICD10: F41.1] Diagnosis: Essential (primary) hypertension[ICD10: I10] Diagnosis: Gastro-esophageal reflux disease without esophagitis[ICD10: K21.9] Morenita Davenport MD, [facility] CPT-4: 50889 05/28/2016 [id number]) 38928 EST. PATIENT, LEVEL IV Diagnosis: Generalized anxiety disorder[ICD10: F41.1] Diagnosis: Major depressive disorder, recurrent, mild[ICD10: F33.0] Diagnosis: Essential (primary) hypertension[ICD10: I10] [facility] CPT-4: 30946 02/28/2016 ([id number]) OFFICE VISIT, NEW - LEVEL 4 Diagnosis: Essential (primary) hypertension[ICD10: I10] Diagnosis: Generalized anxiety disorder[ICD10: F41.1] Diagnosis: Mixed hyperlipidemia[ICD10: E78.2] Diagnosis: Major depressive disorder, recurrent, mild[ICD10: F33.0] [facility] CPT-4: 43438 11/29/2015 Plan of Care Planned Activity Notes [...] review.The pt is to call for acute concerns.Uhfjmdc-arzyypuodq-hzl well controlled-add deplin-continue lexapro Patient has not had recent labs-will send orders for fasting labs 08/21/2016 Appointment: Morenita Don WPtel: [address] [place], [place] [phone] (15 min) Moderate 08/21/2016 Patient Education: Patient [...] worse 05/28/2016 Appointment: Morenita Don WPtel: [phone] [phone] (15 min) Moderate 05/28/2016 Patient Education: [...] at home. 02/28/2016 Appointment: Morenita Don WPtel: [phone] [phone] (30 min) Complex 02/28/2016 Patient Education: [...] medications. 11/29/2015 [facility]ment[facility] [phone] [phone] New Patient 11/29/2015 Patient Education: Patient [...] increase effectiveness of lexapro: Recommend filling at [facility] in [place] due to affordability. . Hypertension - uncontrolled [...] pt is to call for acute concerns. Pnwzrmz-svnobqirjv-edu well controlled-add deplin-continue lexapro Patient has not had recent labs-will send orders for fasting labs
[2018-10-11 17:09] LABS: BASOPHILS % (AUTO) 0 % (0-10); EOSINOPHILS # (AUTO) 0.3 10^3/uL (0.0-0.3); EOSINOPHILS % (AUTO) 3 % (0-10); HEMATOCRIT 43 % (35-52); LYMPHOCYTES % (AUTO) 25 % (12-44); MEAN CORPUSCULAR HEMOGLOBIN 29 PG (25-34); MEAN CORPUSCULAR HGB CONC 33 G/DL (32-36); MEAN CORPUSCULAR VOLUME 87 FL (80-99); MEAN PLATELET VOLUME 10.1 FL (7.4-10.4); MONOCYTES # (AUTO) 0.8 X 10^3 (0.0-1.0); MONOCYTES % (AUTO) 10 % (0-12); NEUTROPHILS # (AUTO) 4.9 X 10^3 (1.8-7.8); NEUTROPHILS % (AUTO) 61 % (42-75); PLATELET COUNT 261 10^3/uL (130-400); RED CELL DISTRIBUTION WIDTH 14.9 % (10.0-14.5)
--- OUTSIDE RECORDS SUMMARY | 2018-10-11 17:09 | XMS REPORT | CCD ---
Author Author Morenita Don MD, [facility] Address [address] [place] [address] Phone Care Team Providers Care Trapeze Performer Name Role Phone PP Unavailable CCM Unavailable Summary Purpose Interface Exchange Insurance Providers Payer name Policy type / Coverage type Covered alliance party ID Effective Begin Date Effective End Date [employer] Medicare Part B [id number] 2016 Unknown [email or web address] Medicare Part B [id number] 2016 Unknown Family history Father Diagnosis Age At Onset Myocardial infarction Unknown Mother Diagnosis Age At Onset Myocardial infarction Unknown Social History Social History Element Codes Description Effective Dates Marital status Unknown 11/29/2015 Number of children Unknown 2 son at 3hrs old 11/29/2015 Employment Unknown Retired 11/29/[address]: 747694098 Never smoker 11/29/[address]: 634846534 Never drinks alcohol 11/29/2015 Allergies, Adverse Reactions, [...] 04/05/2017 Active clonazepam 1 mg tablet RxNorm: 050644 1 Tablet(s) PO BID 08/31/2016 02/26/2017 Active L-Methylfolate 15 mg tablet RxNorm: 1 Tablet(s) PO daily 08/28/2016 10/07/2016 Inactive lisinopril 20 mg tablet RxNorm: 274978 1 Tablet(s) PO daily 08/21/2016 11/18/2016 Active lisinopril 20 mg tablet RxNorm: 810695 1 Tablet(s) PO daily 08/21/2016 11/18/2016 Active Deplin (algal oil) 15 mg-90.314 mg capsule RxNorm: 1 Capsule(s) PO daily 08/21/2016 08/27/2016 Inactive Lexapro 20 mg tablet RxNorm: 238447 1 TABLET(S) PO QPM 07/27/2016 10/24/2016 Active simvastatin 20 mg tablet RxNorm: 683165 1 TABLET(S) PO QPM 05/24/2016 11/19/2016 Active Patient requests 90 days supply simvastatin 20 mg tablet RxNorm: 759331 1 Tablet(s) PO QPM 05/23/2016 05/23/2016 Inactive Lexapro 20 mg tablet RxNorm: 285441 1 Tablet(s) PO QPM 1 TABLET(S) PO QPM 02/28/2016 08/25/2016 Inactive Patient requests 90 days supply Lexapro 20 mg tablet RxNorm: 319799 1 Tablet(s) PO QPM 02/28/2016 02/28/2016 Inactive potassium chloride ER 10 mEq tablet,extended release RxNorm: 157948 TAKE 2 TABLETS BY MOUTH EVERY DAY 02/27/2016 11/22/2016 Active clonazepam 1 mg tablet RxNorm: 010644 1 Tablet(s) PO BID 02/27/2016 05/25/2016 Inactive tramadol 50 mg tablet RxNorm: 108171 1 Tablet(s) PO Q6 as needed for pain 02/27/2016 04/11/2016 Inactive citalopram 20 mg tablet RxNorm: 810797 1 Tablet(s) PO QAM 02/27/2016 02/27/2016 Inactive omeprazole 20 mg capsule,delayed release RxNorm: 557429 TAKE 1 CAPSULE BY MOUTH EVERY DAY 02/13/2016 11/08/2016 Active Mobic 15 mg tablet RxNorm: 642018 1 Tablet(s) PO daily 02/10/2016 02/03/2017 Active amlodipine 10 mg tablet RxNorm: 347083 1 Tablet(s) PO daily 11/29/2015 12/28/2015 Inactive Multiple Vitamins Daily tablet RxNorm: 1 Tablet(s) PO daily 11/29/2015 12/28/2015 Inactive clonazepam 1 mg tablet RxNorm: 948906 1 Tablet(s) PO Q12H 11/29/2015 12/28/2015 Inactive Mobic 15 mg tablet RxNorm: 473271 1 Tablet(s) PO daily 11/29/2015 12/28/2015 Inactive lisinopril 10 mg tablet RxNorm: 765780 1 Tablet(s) PO daily 11/29/2015 12/26/2015 Inactive simvastatin 20 mg tablet RxNorm: 923236 1 Tablet(s) PO QPM 11/29/2015 12/28/2015 Inactive Colace 100 mg capsule RxNorm: 9741778 1 Capsule(s) PO daily 11/29/2015 11/29/2015 Inactive citalopram 20 mg tablet RxNorm: 081487 1 Tablet(s) PO QAM 11/29/2015 12/28/2015 Inactive potassium chloride ER 10 mEq tablet,extended release RxNorm: 974123 2 Tablet(s) PO daily 20meq daily 11/29/2015 12/28/2015 Inactive Vitamin D3 1,000 unit tablet RxNorm: 178541 1 Tablet(s) PO daily No Start Date Active Coricidin HBP 10 mg-200 mg capsule RxNorm: 7155591 1 Capsule(s) PO PRN No Start Date Active omeprazole 20 mg tablet,delayed release RxNorm: 974777 1 Tablet(s) PO daily No Start Date Active potassium chloride ER 10 mEq tablet,extended release RxNorm: 998962 2 Tablet(s) PO daily No Start Date Active cranberry 400 mg capsule RxNorm: 410129 1 Capsule(s) PO daily No Start Date Active amlodipine 10 mg tablet RxNorm: 205242 1 Tablet(s) PO daily No Start Date Active Vitamin D3 1,000 unit tablet RxNorm: 978471 1 Tablet(s) PO daily No Start Date Active simvastatin 20 mg tablet RxNorm: 965750 1 Tablet(s) PO QHS No Start Date Active docusate sodium 100 mg tablet RxNorm: 7399992 1 Tablet(s) PO daily No Start Date Active Mobic 15 mg tablet RxNorm: 489510 1 Tablet(s) PO daily No Start Date 02/09/2016 Inactive clonazepam 1 mg tablet RxNorm: 912122 1 Tablet(s) PO BID No Start Date 02/26/2016 Inactive Aleve PM 220 mg-25 mg tablet RxNorm: 7068401 1 Tablet(s) PO daily No Start Date 05/27/2016 Inactive lisinopril 10 mg tablet RxNorm: 460477 1 Tablet(s) PO daily No Start Date 08/20/2016 Inactive tramadol 50 mg tablet RxNorm: 665951 1 Tablet(s) PO Q6 PRN No Start Date 02/26/2016 Inactive Ultram 50 mg tablet RxNorm: 637063 1 Tablet(s) PO Q6 as needed No Start Date 11/28/2015 Inactive citalopram 20 mg tablet RxNorm: 667372 1 Tablet(s) PO daily No Start Date 02/26/2016 Inactive omeprazole 20 mg capsule,delayed release RxNorm: 632724 1 Capsule(s) PO daily No Start Date [...] hypertension 05/28/2016 hypertension 02/28/2016 cerumen 11/29/2015 Results No Results data Review of Systems System Result Effective Dates [...] 1994 Ears/Nose/Throat lips/teeth/gingiva Teeth: wears dentures 05/28/2016 [facility] Full Exam - General 1994 Respiratory auscultation [...] Ears/Nose/Throat lips/teeth/gingiva Teeth: wears dentures 02/28/2016 [facility] Full Exam - General 1994 Respiratory auscultation [...] 1: 166/80 Code: 8480-6 BMI: 25.8 Code: 82522-2 Heart Rate 1: 105 bpm Height: 5'5" SpO2: 95% Weight: 155 lbs 05/28/2016 Blood Pressure 1: 142/74 Code: 8480-6 BMI: 25.3 Code: 15798-3 Heart Rate 1: 104 bpm Height: 5'5" SpO2: 96% Weight: 152 lbs 02/28/2016 Blood Pressure 1: 130/70 Code: 8480-6 BMI: 26.0 Code: 89843-1 Heart Rate 1: 100 bpm Height: 5'5" SpO2: 96% Weight: 156 lbs 11/29/2015 Blood Pressure 1: 130/70 Code: 8480-6 BMI: 25.5 Code: 89438-5 Heart Rate 1: 86 bpm Height: 5'5" [...] data Encounters Encounter Performer Location Codes Date ([id number]) 51999 EST. PATIENT, LEVEL IV Diagnosis: Essential (primary) hypertension[ICD10: I10] Diagnosis: Generalized anxiety disorder[ICD10: F41.1] Diagnosis: Major depressive disorder, recurrent, mild[ICD10: F33.0] [facility] CPT-4: 79085 08/21/2016 ([id number]) 43688 EST. PATIENT, LEVEL IV Diagnosis: Generalized anxiety disorder[ICD10: F41.1] Diagnosis: Essential (primary) hypertension[ICD10: I10] Diagnosis: Gastro-esophageal reflux disease without esophagitis[ICD10: K21.9] [facility] CPT-4: 24248 05/28/2016 [id number]) 93028 EST. PATIENT, LEVEL IV Diagnosis: Generalized anxiety disorder[ICD10: F41.1] Diagnosis: Major depressive disorder, recurrent, mild[ICD10: F33.0] Diagnosis: Essential (primary) hypertension[ICD10: I10] [facility] CPT-4: 10651 02/28/2016 ([id number]) OFFICE VISIT, NEW - LEVEL 4 Diagnosis: Essential (primary) hypertension[ICD10: I10] Diagnosis: Generalized anxiety disorder[ICD10: F41.1] Diagnosis: Mixed hyperlipidemia[ICD10: E78.2] Diagnosis: Major depressive disorder, recurrent, mild[ICD10: F33.0] [facility] CPT-4: 75206 11/29/2015 Plan of Care Planned Activity Notes [...] review.The pt is to call for acute concerns.Lsnvyzf-fzinlhenfu-klb well controlled-add deplin-continue lexapro Patient has not had recent labs-will send orders for fasting labs 08/21/2016 Appointment: Morenita Don WPtel: [address] [place], [place] [phone] (15 min) Moderate 08/21/2016 Patient Education: Patient [...] worse 05/28/2016 Appointment: Morenita Don WPtel: [address] (15 min) Moderate 05/28/2016 Patient Education: Patient [...] home. 02/28/2016 Appointment: Morenita Don WPtel: [phone] [place] [phone] (30 min) Complex 02/28/2016 Patient Education: Patient [...] to medications. 11/29/2015 Appointment: [facility] [address] [phone] [place] New Patient 11/29/2015 Patient [...] increase effectiveness of lexapro: Recommend filling at [facility] in [place] due to affordability. . Hypertension - uncontrolled [...] pt is to call for acute concerns. Kahcecf-jctchxaljm-yoz well controlled-add deplin-continue lexapro Patient has not had recent labs-will send orders for fasting labs
[2018-10-11] MEDS ORDERED: LORazepam INJ 2 MG/ML (ATIVAN) VIAL IVP PRN (17:15)
[2018-10-11 17:26] LABS: ALANINE AMINOTRANSFERASE 10 U/L (0-55); ALBUMIN 3.7 GM/DL (3.2-4.5); ALKALINE PHOSPHATASE 63 U/L (40-136); BILIRUBIN,TOTAL 0.4 MG/DL (0.1-1.0); BUN/CREATININE RATIO 14; CALCIUM 10.2 MG/DL (8.5-10.1); CARBON DIOXIDE 25 MMOL/L (21-32); CHLORIDE 99 MMOL/L (98-107); CREATININE SERUM 0.84 MG/DL (0.60-1.30); GFR ESTIMATED > 60; GLUCOSE 91 MG/DL (70-105); POTASSIUM 4.5 MMOL/L (3.6-5.0); SODIUM 134 MMOL/L (135-145); TOTAL PROTEIN 7.1 GM/DL (6.4-8.2)
--- OUTSIDE RECORDS SUMMARY | 2018-10-11 17:26 | XMS REPORT | Continuity of Care Document ---
Demographics Preferred Language Unknown Marital Status Unknown Jainism Affiliation Unknown Race Unknown Ethnic Group Unknown Author Organization Unknown Address Unknown Allergies Active Description Code Type Severity Reaction Onset Reported/Identified Relationship to Patient Clinical Status Yes PENICILLINS UNKNOWN UNKNOWN Yes Penicillins [id number] Drug Allergy Severe EDEMA 04/13/2018 Medications Medication Packaging Start Date Stop Date Route Dosage Sig ACETAMINOPHEN ORAL TABLET 325mg(Tylenol) MG 09/19/2018 10/19/2018 PRN EVERY 6 Hour NORMAL SALINE 1000CC IV BAG INJ 0.9 % (NS 1000CC IV BAG) ml 09/19/2018 10/04/2018 CONTINUOUSEVERY 0 Hour ALPRAZOLAM TAB 0.25 MG (XANAX) MG 09/19/2018 09/29/2018 PRN Q6H HALOPERIDOL VIAL INJ 5 MG/CC (HALDOL 1CC VIAL) MG 09/19/2018 09/26/2018 PRN Q6H CLONIDINE TAB 0.1 MG (CATAPRES) MG 09/19/2018 09/26/2018 PRN Q6H ACETAMINOPHEN SUPPOS SUP 650 MG (TYLENOL) MG 09/19/2018 09/26/2018 PRN Q4H ONDANSETRON VIAL INJ 4 MG/2CC (ZOFRAN 2CC VIAL) MG 09/19/2018 09/26/2018 PRN Q4H CALCIUM CARBONATE TAB 500 MG (TUMS) MG 09/19/2018 09/26/2018 PRN Q6H DIPHENHYDRAMINE CAP 25 MG (BENADRYL) MG 09/19/2018 09/26/2018 PRN Q6H LORAZEPAM 1CC VIAL INJ 2 MG/CC (ATIVAN VIAL) MG 09/19/2018 09/26/2018 PRN Q4H HYDROCODONE/APAP 5MG/325MG TAB 5 MG/325MG (PATRICA-TAB 5/325) TAB 09/19/2018 09/29/2018 PRN Q6H ALUM/MAG/SIMETH 30CC LIQ (MYLANTA PLUS) cc 09/19/2018 09/29/2018 PRN Q4H GUAIFENESIN - DM LIQ (ROBITUSSIN DM) MLS 09/19/2018 09/26/2018 PRN Q4H Docusate sodium 100mg oral capsule (COLACE) 09/19/2018 10/19/2018 PRN BID FLUCONAZOLE IV PREMIX BAG INJ 200 MG/100CC (DIFLUCAN IV 100CC BAG) MG 09/19/2018 09/25/2018 Q24H&2000 CLONAZEPAM TAB 1 MG (KLONOPIN) MG 09/19/2018 09/26/2018 TID&0800,1400,2000 LACTULOSE SYRUP LIQ 20 GM/30CC (CHRONULAC SYRUP) GM 09/19/2018 10/19/2018 BID&0800,2000 POTASSIUM CL 20MEQ VIAL INJ 20 MEQ/10CC (KCL VIAL) MEQ 09/19/2018 09/26/2018 CONTINUOUSEVERY 0 Hour MELATONIN TAB 3 MG (MELATONIN) MG 09/19/2018 09/25/2018 PRN QHS LEVOFLOXACIN PREMIX IV BAG INJ 500 MG/100CC (LEVAQUIN IV PREMIX 100CC BAG) MG 09/19/2018 09/25/2018 Daily&2100 BISACODYL TAB 5 MG (DULCOLAX) MG 09/20/2018 09/26/2018 PRN Daily FLUCONAZOLE IV PREMIX BAG INJ 200 MG/100CC (DIFLUCAN IV 100CC BAG) MG 09/20/2018 09/26/2018 Q24H&0900 POLYETHYLENE GLYCOL POWDER UD PWD (MIRALAX 17GM UNIT DOSE PAKS) gm 09/20/2018 09/26/2018 Daily&0900 BISACODYL SUPPOS 10 MG (DULCOLAX SUPPOS) MG 09/20/2018 09/26/2018 PRN Daily NORMAL SALINE 1000CC IV BAG INJ 0.9 % (NS 1000CC IV BAG) ml 09/20/2018 10/05/2018 CONTINUOUSEVERY 0 Hour LEVOFLOXACIN PREMIX IV BAG INJ 500 MG/100CC (LEVAQUIN IV PREMIX 100CC BAG) MG 09/20/2018 09/26/2018 Daily&0900 MILK OF MAGNESIA LIQ ml 09/20/2018 10/19/2018 PRN Daily FLUCONAZOLE TAB 100 MG (DIFLUCAN) MG 09/20/2018 10/03/2018 Daily&2000 Problems Date Dx Coded Attending Type Code Diagnosis Diagnosed By 01/22/2013 MOSES MCKEON MD Ot 292.81 DRUG-INDUCED DELIRIUM 01/22/2013 REVEAL MOSES CABA Ot 300.00 ANXIETY STATE NOS 01/22/2013 REVEAL MOSES CABA Ot 311 DEPRESSIVE DISORDER NEC 01/22/2013 REVEAL MOSES CABA Ot 389.9 HEARING LOSS NOS 01/22/2013 REVEAL MOSES CABA Ot 401.9 HYPERTENSION NOS 01/22/2013 REVEAL MOSES CABA Ot 553.3 DIAPHRAGMATIC HERNIA 01/22/2013 REVEAL MOSES CABA Ot 716.90 ARTHROPATHY NOS-UNSPEC 01/22/2013 REVEAL MOSES CABA Ot 733.82 NONUNION OF FRACTURE 01/22/2013 REVEAL MOSES CABA Ot 780.60 FEVER, UNSPECIFIED 01/22/2013 REVEAL MOSES CABA Ot 820.21 INTERTROCHANTERIC FX-CL 01/22/2013 REVEAL MOSES CABA Ot 905.2 LATE EFFECT ARM FX 01/22/2013 REVEAL MOSES CABA Ot E000.8 OTHER EXTERNAL CAUSE STATUS 01/22/2013 REVEAL MOSES CABA Ot E849.0 ACCIDENT IN HOME 01/22/2013 REVEAL MOSES CABA Ot E880.9 FALL ON STAIR/STEP NEC 01/22/2013 REVEAL MOSES CABA Ot E935.2 ADV EFF OPIATES 01/29/2014 ARIAN [...] 959.01 HEAD INJURY, NOS 01/21/2015 JERSON BOWLES MD, Ot E000.8 OTHER EXTERNAL CAUSE STATUS 01/21/2015 JERSON BOWLES MD Ot E849.7 ACCID IN RESIDENT INSTIT 01/21/2015 JERSON BOWLES MD Ot E885.9 FALL FROM SLIPPING, TRIPPING, OR STUMBLI 10/24/2015 MERT CURRY DOI Ot E78.5 HYPERLIPIDEMIA, UNSPECIFIED 10/24/2015 PATRICIO DELGADILLO NELSON Ot F32.9 MAJOR DEPRESSIVE DISORDER, SINGLE EPISOD 10/24/2015 PATRICIO DELGADILLO NELSON Ot F41.9 ANXIETY DISORDER, UNSPECIFIED 10/24/2015 PATRICIO DELGADILLO NELSON Ot I10 ESSENTIAL (PRIMARY) HYPERTENSION 10/24/2015 PATRICIO DELGADILLO NELSON Ot I63.9 CEREBRAL INFARCTION, UNSPECIFIED 10/24/2015 PATRICIO DELGADILLO NELSON Ot K21.9 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 10/24/2015 PATRICIO DELGADILLO NELSON Ot R13.10 DYSPHAGIA, UNSPECIFIED 10/24/2015 PATRICIO DELGADILLO NELSON Ot R25.9 UNSPECIFIED ABNORMAL INVOLUNTARY MOVEMEN 10/24/2015 PATRICIO DELGADILLO NELSON Ot R41.0 DISORIENTATION, UNSPECIFIED 10/24/2015 PATRICIO DELGADILLO NELSON Ot 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 10/24/2015 PATRICIO DELGADILLO NELSON Ot R56.9 UNSPECIFIED CONVULSIONS 10/24/2015 PATRICIO DELGADILLO NELSON Ot Z86.718 PERSONAL HISTORY OF OTHER VENOUS THROMBO 10/24/2015 PATRICIO DELGADILLO NELSON Ot Z91.81 HISTORY OF FALLING 10/29/2016 ARIAN SALINAS MD Ot V58.61 ANTICOAGULANTS,LT,CURRENT USE 10/29/2016 ARIAN SALINAS MD Ot V58.83 ENCOUNTER FOR THERAPEUTIC DRUG MONITORIN 10/29/2016 ARIAN SALINAS MD Ot V54.13 AFTERCARE HEALING TRAUMATIC FX HIP 10/29/2016 ARIAN SALINAS MD Ot V58.61 ANTICOAGULANTS,LT,CURRENT USE 10/29/2016 GEORGE TEIXEIRA Ot D64.9 ANEMIA, UNSPECIFIED 10/29/2016 GEORGE TEIXEIRAP Ot D72.819 DECREASED WHITE BLOOD CELL COUNT, UNSPEC 10/30/2016 GEORGE TEIXEIRA Ot D64.9 ANEMIA, UNSPECIFIED 10/30/2016 GEORGE TEIXEIRA ELECTRONICS DETAIL DRAFTSPERSON Ot D72.819 DECREASED WHITE BLOOD CELL COUNT, UNSPEC 11/23/2016 GEORGE TEIXEIRA ELECTRONICS DETAIL DRAFTSPERSON Ot D64.9 ANEMIA, UNSPECIFIED 11/23/2016 GEORGE TEIXEIRA ELECTRONICS DETAIL DRAFTSPERSON Ot D72.819 DECREASED WHITE BLOOD CELL COUNT, UNSPEC 08/08/2017 ARIAN SALINAS MD Ot V58.61 ANTICOAGULANTS,LT,CURRENT USE 08/08/2017 ARIAN SALINAS MD Ot V58.83 ENCOUNTER FOR THERAPEUTIC DRUG MONITORIN 08/08/2017 ARIAN SALINAS MD Ot V54.13 AFTERCARE HEALING TRAUMATIC FX HIP 08/08/2017 ARIAN SALINAS MD Ot V58.61 ANTICOAGULANTS,LT,CURRENT USE 08/08/2017 GEORGE TEIXEIRA Ot D64.9 ANEMIA, UNSPECIFIED 08/08/2017 GEORGE TEIXEIRA Ot D72.819 DECREASED WHITE BLOOD CELL COUNT, UNSPEC 08/09/2017 ARIAN SALINAS MD Ot V58.61 ANTICOAGULANTS,LT,CURRENT USE 08/09/2017 ARIAN SALINAS MD Ot V58.83 ENCOUNTER FOR THERAPEUTIC DRUG MONITORIN 08/09/2017 ARIAN SALINAS MD Ot V54.13 AFTERCARE HEALING TRAUMATIC FX HIP 08/09/2017 ARIAN SALINAS MD Ot V58.61 ANTICOAGULANTS,LT,CURRENT USE 08/09/2017 GEORGE TEIXEIRA Ot D64.9 ANEMIA, UNSPECIFIED 08/09/2017 GEORGE TEIXEIRAP [...] J18.9 PNEUMONIA, UNSPECIFIED ORGANISM 08/13/2017 CHARLINE CABA, SHELLEI Donato Ot M17.11 UNILATERAL PRIMARY OSTEOARTHRITIS, RIGHT 08/13/2017 CHARLINE CABA, SHELLIE Donato Ot M19.041 PRIMARY OSTEOARTHRITIS, RIGHT HAND 08/13/2017 SHELLIE OLIVIER MD Ot M23.41 LOOSE BODY IN KNEE, RIGHT KNEE 08/13/2017 CHARLINE CAAB, SHELLIE Donato Ot M80.051A AGE-REL OSTEOPOR W [...] SHELLIE OLIVIER MD Ot Y92.000 [facility]EN OF [facility] NON-INSTITUT (PRIVATE) R 08/13/2017 SHELLIE OLIVIER MD Ot Y92.003 [facility] OF [facility] NON-INSTITUT (PRIVATE) R 08/13/2017 SHELLIE OLIVIER [...] SHELLIE OLIVIER MD Ot Y92.000 [facility] OF [facility] NON[facility]INSTIT[facility] (PRIVATE) R 08/13/2017 SHELLIE OLIVIER MD Ot Y92.003 [facility] OF [facility]-INST[facility] (PRIVATE) R 08/13/2017 SHELLIE OLIVIER MD Ot Z66 DO NOT RESUSCITATE 08/13/2017 SHELLIE OLIVIER MD Ot Z86.718 PERSONAL HISTORY OF OTHER VENOUS THROMBO 08/13/2017 SHELLIE OLIVIER MD Ot Z96.652 PRESENCE OF LEFT ARTIFICIAL KNEE JOINT 08/13/2017 SHELLIE OLIVIER MD Ot Z97.4 PRESENCE OF EXTERNAL HEARING-AID 04/14/2018 SHELLIE OLIVIER MD Ot A41.9 SEPSIS, UNSPECIFIED ORGANISM 04/14/2018 SHELLIE OLIVIER MD Ot E78.00 PURE HYPERCHOLESTEROLEMIA, UNSPECIFIED 04/14/2018 SHELLIE OLIVIER MD Ot F03.90 UNSPECIFIED DEMENTIA WITHOUT BEHAVIORAL 04/14/2018 SHELLIE OLIVIER MD Ot F05 DELIRIUM DUE TO KNOWN PHYSIOLOGICAL COND 04/14/2018 SHELLIE OLIVIER MD Ot F32.9 MAJOR DEPRESSIVE DISORDER, SINGLE EPISOD 04/14/2018 SHELLIE OLIVIER MD Ot F41.9 ANXIETY DISORDER, UNSPECIFIED 04/14/2018 SHELLIE OLIVIER MD Ot I10 ESSENTIAL (PRIMARY) HYPERTENSION 04/14/2018 SHELLIE OLIVIER MD Ot M19.91 PRIMARY OSTEOARTHRITIS, UNSPECIFIED SITE 04/14/2018 SHELLIE OLIVIER MD Ot 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 04/14/2018 SHELLIE OLIVIER MD Ot N39.0 URINARY TRACT INFECTION, SITE NOT SPECIF 04/14/2018 SHELLIE OLIVIER MD Ot R53.1 WEAKNESS 04/14/2018 SHELLIE OLIVIER MD Ot R54 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 04/14/2018 SHELLIE OLIVIER MD Ot R63.0 ANOREXIA 04/14/2018 SHELLIE OLIVIER MD Ot R64 CACHEXIA 04/14/2018 SHELLIE OLIVIER MD Ot R74.8 ABNORMAL LEVELS OF OTHER SERUM ENZYMES 04/14/2018 SHELLIE OLIVIER MD Ot Z66 DO NOT RESUSCITATE 04/14/2018 SHELLIE OLIVIER MD Ot Z86.718 PERSONAL HISTORY OF OTHER VENOUS THROMBO 04/14/2018 SHELLIE OLIVIER MD Ot Z97.4 PRESENCE OF EXTERNAL HEARING-AID 04/17/2018 SHELLIE OLIVIER MD Ot A41.9 SEPSIS, UNSPECIFIED ORGANISM 04/17/2018 SHELLIE OLIVIER MD Ot B37.49 OTHER UROGENITAL CANDIDIASIS 04/17/2018 SHELLIE OLIVIER MD Ot E78.00 PURE HYPERCHOLESTEROLEMIA, UNSPECIFIED 04/17/2018 SHELLIE OLIVIER MD Ot E87.1 HYPO-OSMOLALITY AND HYPONATREMIA 04/17/2018 SHELLIE OLIVIER MD Ot F03.90 UNSPECIFIED DEMENTIA WITHOUT BEHAVIORAL 04/17/2018 SHELLIE OLIVIER MD Ot F05 DELIRIUM DUE TO KNOWN PHYSIOLOGICAL COND 04/17/2018 SHELLIE OLIVIER MD Ot F32.9 MAJOR DEPRESSIVE DISORDER, SINGLE EPISOD 04/17/2018 SHELLIE OLIVIER MD Ot F41.9 ANXIETY DISORDER, UNSPECIFIED 04/17/2018 SHELLIE OLIVIER MD Ot I10 ESSENTIAL (PRIMARY) HYPERTENSION 04/17/2018 SHELLIE OLIVIER MD Ot M19.91 PRIMARY OSTEOARTHRITIS, UNSPECIFIED SITE 04/17/2018 SHELLIE OLIVIER MD Ot 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 04/17/2018 SHELLIE OLIVIER MD Ot N39.0 URINARY TRACT INFECTION, SITE NOT SPECIF 04/17/2018 SHELLIE OLIVIER MD Ot R53.1 WEAKNESS 04/17/2018 SHELLIE OLIVIER MD Ot R54 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 04/17/2018 SHELLIE OLIVIER MD Ot R63.0 ANOREXIA 04/17/2018 SHELLIE OLIVIER MD Ot R64 CACHEXIA 04/17/2018 SHELLIE OLIVIER MD Ot R74.8 ABNORMAL LEVELS OF OTHER SERUM ENZYMES 04/17/2018 SHELLIE OLIVIER MD Ot Z23 ENCOUNTER FOR IMMUNIZATION 04/17/2018 SHELLEI OLIVIER MD Ot Z66 DO NOT RESUSCITATE 04/17/2018 SHELLIE OLIVIER MD, Ot Z86.718 PERSONAL HISTORY OF OTHER VENOUS THROMBO 04/17/2018 SHELLIE OLIVIER MD Ot Z97.4 PRESENCE OF EXTERNAL HEARING-AID 04/18/2018 SHELLIE OLIVIER MD Ot A41.9 SEPSIS, UNSPECIFIED ORGANISM 04/18/2018 SHELLIE OLIVIER MD Ot E78.00 PURE HYPERCHOLESTEROLEMIA, UNSPECIFIED 04/18/2018 SHELLIE OLIVIER MD Ot F03.90 UNSPECIFIED DEMENTIA WITHOUT BEHAVIORAL 04/18/2018 SHELLIE OLIVIER MD Ot F05 DELIRIUM DUE TO KNOWN PHYSIOLOGICAL COND 04/18/2018 SHELLIE OLIVIER MD Ot F32.9 MAJOR DEPRESSIVE DISORDER, SINGLE EPISOD 04/18/2018 SHELLIE OLIVIER MD Ot F41.9 ANXIETY DISORDER, UNSPECIFIED 04/18/2018 SHELLIE OLIVIER MD Ot I10 ESSENTIAL (PRIMARY) HYPERTENSION 04/18/2018 SHELLIE OLIVIER MD Ot M19.91 PRIMARY OSTEOARTHRITIS, UNSPECIFIED SITE 04/18/2018 SHELLIE OLIVIER MD Ot 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 04/18/2018 SHELLIE OLIVIER MD Ot N39.0 URINARY TRACT INFECTION, SITE NOT SPECIF 04/18/2018 SHELLIE OLIVIER MD Ot R53.1 WEAKNESS 04/18/2018 SHELLIE OLIVIER MD Ot R54 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 04/18/2018 SHELLIE OLIVIER MD Ot R63.0 ANOREXIA 04/18/2018 SHELLIE OLIVIER MD Ot R64 CACHEXIA 04/18/2018 SHELLIE OLIVIER MD Ot R74.8 ABNORMAL LEVELS OF OTHER SERUM ENZYMES 04/18/2018 SHELLIE OLIVIER MD Ot Z66 DO NOT RESUSCITATE 04/18/2018 SHELLIE OLIVIER MD Ot Z86.718 PERSONAL HISTORY OF OTHER VENOUS THROMBO 04/18/2018 SHELLIE OLIVIER MD Ot Z97.4 PRESENCE OF EXTERNAL HEARING-AID 04/18/2018 SHELLIE OLIVIER MD Ot A41.9 SEPSIS, UNSPECIFIED ORGANISM 04/18/2018 SHELLIE OLIVIER MD Ot E78.00 PURE HYPERCHOLESTEROLEMIA, UNSPECIFIED 04/18/2018 SHELLIE OLIVIER MD Ot F03.90 UNSPECIFIED DEMENTIA WITHOUT BEHAVIORAL 04/18/2018 SHELLIE OLIVIER MD Ot F05 DELIRIUM DUE TO KNOWN PHYSIOLOGICAL COND 04/18/2018 SHELLIE OLIVIER MD Ot F32.9 MAJOR DEPRESSIVE DISORDER, SINGLE EPISOD 04/18/2018 SHELLIE OLIVIER MD Ot F41.9 ANXIETY DISORDER, UNSPECIFIED 04/18/2018 SHELLIE OLIVIER MD Ot I10 ESSENTIAL (PRIMARY) HYPERTENSION 04/18/2018 SHELLIE OLIVIER MD Ot M19.91 PRIMARY OSTEOARTHRITIS, UNSPECIFIED SITE 04/18/2018 SHELLIE OLIVIER MD Ot 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 04/18/2018 SHELLIE OLIVIER MD Ot N39.0 URINARY TRACT INFECTION, SITE NOT SPECIF 04/18/2018 SHELLIE OLIVIER MD Ot R53.1 WEAKNESS 04/18/2018 SHELLIE OLIVIER MD Ot R54 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 04/18/2018 SHELLIE OLIVIER MD Ot R63.0 ANOREXIA 04/18/2018 SHELLIE OLIVIER MD Ot R64 CACHEXIA 04/18/2018 SHELLIE OLIVIER MD Ot R74.8 ABNORMAL LEVELS OF OTHER SERUM ENZYMES 04/18/2018 SHELLIE OLIVIER MD Ot Z66 DO NOT RESUSCITATE 04/18/2018 SHELLIE OLIVIER MD Ot Z86.718 PERSONAL HISTORY OF OTHER VENOUS THROMBO 04/18/2018 SHELLIE OLIVIER MD Ot Z97.4 PRESENCE OF EXTERNAL HEARING-AID 04/18/2018 SHELLIE OLIVIER MD Ot A41.9 SEPSIS, UNSPECIFIED ORGANISM 04/18/2018 SHELLIE OLIVIER MD Ot E78.00 PURE HYPERCHOLESTEROLEMIA, UNSPECIFIED 04/18/2018 SHELLIE OLIVIER MD Ot F03.90 UNSPECIFIED DEMENTIA WITHOUT BEHAVIORAL 04/18/2018 SHELLIE OLIVIER MD Ot F05 DELIRIUM DUE TO KNOWN PHYSIOLOGICAL COND 04/18/2018 SHELLIE OLIVIER MD Ot F32.9 MAJOR DEPRESSIVE DISORDER, SINGLE EPISOD 04/18/2018 SHELLIE OLIVIER MD Ot F41.9 ANXIETY DISORDER, UNSPECIFIED 04/18/2018 SHELLIE OLIVIER MD Ot I10 ESSENTIAL (PRIMARY) HYPERTENSION 04/18/2018 SHELLIE OLIVIER MD Ot M19.91 PRIMARY OSTEOARTHRITIS, UNSPECIFIED SITE 04/18/2018 SHELLIE OLIVIER MD Ot 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 04/18/2018 SHELLIE OLIVIER MD, Ot N39.0 URINARY TRACT INFECTION, SITE NOT SPECIF 04/18/2018 SHELLIE OLIVIER MD Ot R53.1 WEAKNESS 04/18/2018 SHELLIE OLIVIER MD, Ot R54 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 04/18/2018 SHELLIE OLIVIER MD Ot R63.0 ANOREXIA 04/18/2018 SHELLIE OLIVIER MD Ot R64 CACHEXIA 04/18/2018 SHELLIE OLIVIER MD Ot R74.8 ABNORMAL LEVELS OF OTHER SERUM ENZYMES 04/18/2018 SHELLIE OLIVIER MD Ot Z66 DO NOT RESUSCITATE 04/18/2018 SHELLIE OLIVIER MD Ot Z86.718 PERSONAL HISTORY OF OTHER VENOUS THROMBO 04/18/2018 SHELLIE OLIVIER MD Ot Z97.4 PRESENCE OF EXTERNAL HEARING-AID 09/01/2018 SHELLIE OLIVIER MD Ot A41.9 SEPSIS, UNSPECIFIED ORGANISM 09/01/2018 SHELLIE OLIVIER MD Ot B37.41 CANDIDAL CYSTITIS AND URETHRITIS 09/01/2018 SHELLIE OLIVIER MD Ot E78.00 PURE HYPERCHOLESTEROLEMIA, UNSPECIFIED 09/01/2018 SHELLIE OLIVIER MD Ot E87.1 HYPO-OSMOLALITY AND HYPONATREMIA 09/01/2018 SHELLIE OLIVIER MD Ot F03.90 UNSPECIFIED DEMENTIA WITHOUT BEHAVIORAL 09/01/2018 SHELLIE OLIVIER MD Ot F32.9 MAJOR DEPRESSIVE DISORDER, SINGLE EPISOD 09/01/2018 SHELLIE OLIVIER MD Ot F41.9 ANXIETY DISORDER, UNSPECIFIED 09/01/2018 SHELLIE OLIVIER MD Ot I10 ESSENTIAL (PRIMARY) HYPERTENSION 09/01/2018 SHELLIE OLIVIER MD Ot J18.1 LOBAR PNEUMONIA, UNSPECIFIED ORGANISM 09/01/2018 SHELLIE OLIVIER MD Ot K21.9 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 09/01/2018 SHELLIE OLIVIER MD Ot M19.91 PRIMARY OSTEOARTHRITIS, UNSPECIFIED SITE 09/01/2018 SHELLIE OLIVIER MD Ot 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 09/01/2018 SHELLIE OLIVIER MD Ot R41.0 DISORIENTATION, UNSPECIFIED 09/01/2018 SHELLIE OLIVIER MD Ot R53.1 WEAKNESS 09/01/2018 SHELLIE OLIVIER MD, Ot R54 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 09/01/2018 SHELLIE OLIVIER MD Ot Z66 DO NOT RESUSCITATE 09/01/2018 SHELLIE OLIVIER MD Ot Z86.718 PERSONAL HISTORY OF OTHER VENOUS THROMBO 09/01/2018 SHELLIE OLIVIER MD Ot Z87.891 PERSONAL HISTORY OF NICOTINE DEPENDENCE 09/01/2018 SHELLIE OLIVIER MD Ot Z97.4 PRESENCE OF EXTERNAL HEARING-AID 09/01/2018 SHELLIE OLIVIER MD Ot Z99.3 DEPENDENCE ON WHEELCHAIR 09/24/2018 JAE MOREAUP Ot E78.00 PURE HYPERCHOLESTEROLEMIA, UNSPECIFIED 09/24/2018 PRIETO, JAE ELECTRONICS DETAIL DRAFTSPERSON Ot F03.90 UNSPECIFIED DEMENTIA WITHOUT BEHAVIORAL 09/24/2018 PRIETO JAE ELECTRONICS DETAIL DRAFTSPERSON Ot F32.9 MAJOR DEPRESSIVE DISORDER, SINGLE EPISOD 09/24/2018 PRIETO, JAE ELECTRONICS DETAIL DRAFTSPERSON Ot F41.9 ANXIETY DISORDER, UNSPECIFIED 09/24/2018 PRIETO, JAE ELECTRONICS DETAIL DRAFTSPERSON Ot I10 ESSENTIAL (PRIMARY) HYPERTENSION 09/24/2018 JAE MOREAU ELECTRON[employer] DETAIL DRAFTSPERSON Ot 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 09/24/2018 PRIETO, JAE ELECTRONICS DETAIL DRAFTSPERSON Ot N39.0 URINARY TRACT INFECTION, SITE NOT SPECIF 09/24/2018 PRIETO JAE ELECTRON[employer] DETAIL DRAFTSPERSON Ot R41.82 ALTERED MENTAL STATUS, UNSPECIFIED 09/24/2018 PRIETO JAE ELECTRON[employer] DETAIL DRAFTSPERSON Ot Z82.49 FAMILY HX OF ISCHEM HEART DIS AND OTH DI 09/24/2018 JAE MOREAU ELECTRON[employer] DETAIL DRAFTSPERSON Ot Z86.718 PERSONAL HISTORY OF OTHER VENOUS THROMBO 09/24/2018 JAE MOREAU ELECTRON[employer] DETAIL DRAFTSPERSON Ot Z87.440 PERSONAL HISTORY OF URINARY (TRACT) INFE 09/24/2018 PRIETO, JAE ELECTRONICS DETAIL DRAFTSPERSON Ot Z88.0 ALLERGY STATUS TO PENICILLIN 09/24/2018 PRIETO, JAE ELECTRONICS DETAIL DRAFTSPERSON Ot Z98.890 OTHER SPECIFIED POSTPROCEDURAL STATES 09/27/2018 PRIETOJAE SmithP Ot E78.00 PURE HYPERCHOLESTEROLEMIA, UNSPECIFIED 09/27/2018 PRIETOJAE Smith ELECTRON[employer] DETAIL DRAFTSPERSON Ot F03.90 UNSPECIFIED DEMENTIA WITHOUT BEHAVIORAL 09/27/2018 PRIETOJAE Smith ELECTRON[employer] DETAIL DRAFTSPERSON Ot F32.9 MAJOR DEPRESSIVE DISORDER, SINGLE EPISOD 09/27/2018 PRIETOJAE ELECTRON[employer] DETAIL DRAFTSPERSON Ot F41.9 ANXIETY DISORDER, UNSPECIFIED 09/27/2018 PRIETOJAE Smith ELECTRON[employer] DETAIL DRAFTSPERSON Ot I10 ESSENTIAL (PRIMARY) HYPERTENSION 09/27/2018 PRIETOJAE Smith ELECTRON[employer] DETAIL DRAFTSPERSON Ot 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 09/27/2018 PRIETOJAE Smith ELECTRONICS DETAIL DRAFTSPERSON Ot N39.0 URINARY TRACT INFECTION, SITE NOT SPECIF 09/27/2018 PRIETOJAE ELECTRON[employer] DETAIL DRAFTSPERSON Ot R41.82 ALTERED MENTAL STATUS, UNSPECIFIED 09/27/2018 PRIETOJAE Smith [employer]LECTRON[employer] DETAIL DRAFTSPERSON Ot Z82.49 FAMILY HX OF ISCHEM HEART DIS AND OTH DI 09/27/2018 PRIETOJAE Smith ELECTRONICS DETAIL DRAFTSPERSON Ot Z86.718 PERSONAL HISTORY OF OTHER VENOUS THROMBO 09/27/2018 PRIETOJAE Smith ELECTRONICS DETAIL DRAFTSPERSON Ot Z87.440 PERSONAL HISTORY OF URINARY (TRACT) INFE 09/27/2018 PRIETOJAE Smith ELECTRONICS DETAIL DRAFTSPERSON Ot Z88.0 ALLERGY STATUS TO PENICILLIN 09/27/2018 PRIETOJAE Smith ELECTRONICS DETAIL DRAFTSPERSON Ot Z98.890 OTHER SPECIFIED POSTPROCEDURAL STATES Procedures Code Description Performed By Performed On 79.15 CLOSED RED-INT FIX FEMUR 01/16/2013 [id number] INSERTION OF INFUSION DEV INTO SUP VENA 04/13/2018 Results Test Result Range Blood CBC with [...] Automated erythrocyte mean corpuscular hemoglobin concentration measurement (mass/volume) 33 g/dL 32-36 Automated erythrocyte distribution width ratio 13.6 % 10.0- 14.5 Automated blood platelet count (count/volume) 275 10*3/uL [...] Blood monocytes automated count (number/volume) 0.6 10*3 0.0- 1.0 Automated eosinophil count 0.2 10*3/uL 0.0-0.3 Automated blood basophil count (count/volume) 0.0 10*3/uL 0.0-0.1 Manual blood segmented neutrophils/100 leukocytes 48 % NRG Manual blood lymphocytes/100 leukocytes 36 % NRG Manual eosinophils/100 leukocytes in nose 3 % NRG Blood erythrocyte morphology finding identification NORMAL NRG Automated reticulocyte percentage - 10/29/16 08:30 Blood reticulocytes count (number/volume) 36 10*9/L 24-90 Blood reticulocytes/100 erythrocytes 0.76 % 0.50-2.40 Complete urinalysis with reflex to culture - 08/08/17 21:14 Urine color determination YELLOW NRG Urine clarity determination CLEAR NRG Urine pH measurement by test strip 8 5-9 Specific gravity of urine by test strip 1.015 1.016-1.022 Urine protein assay by test strip, semi-quantitative [...] sediment leukocyte count by microscopy (number/high power field) [HPF] NRG Bacteria detection in urine sediment [...] blood base excess by calculation 5.7 mmol/L -2.5-2.5 Arterial blood oxygen saturation measurement 97 % 94-100 * Inhaled oxygen flow rate 4L NRG Arterial blood pH measurement with patient temperature correction 7.45 7.37-7.43 Arterial blood carbon dioxide, total measurement (moles/volume) 30.8 mmol/L 21.0-31.0 Body site LT RAD NRG Assessment of wrist artery patency prior to arterial puncture YES-POS NRG Setting of ventilation mode NO NRG [...] Automated erythrocyte mean corpuscular hemoglobin concentration measurement (mass/volume) 34 g/dL 32-36 Automated erythrocyte distribution width ratio 14.4 % 10.0- 14.5 Automated blood platelet count (count/volume) 197 10*3/uL [...] Blood monocytes automated count (number/volume) 0.8 10*3 0.0- 1.0 Automated eosinophil count 0.1 10*3/uL 0.0-0.3 Automated [...] Blood lactic acid measurement (moles/volume) 1.34 mmol/L 0.50- 2.00 Influenza virus A and B antigen detection - 08/08/17 22:14 FLU RESULT NEGATIVE FOR INFLUENZA A AND B ANTIGENS BY [facility] Comprehensive metabolic panel - 08/08/17 22:35 Serum [...] Serum or plasma aspartate aminotransferase measurement (enzymatic activity/volume) 19 U/L 5-34 Serum or plasma alanine aminotransferase measurement (enzymatic activity/volume) 10 U/L 0-55 Serum or plasma protein [...] Automated erythrocyte mean corpuscular hemoglobin concentration measurement (mass/volume) 34 g/dL 32-36 Automated erythrocyte distribution width ratio 13.9 % 10.0- 14.5 Automated blood platelet count (count/volume) 162 10*3/uL [...] Blood monocytes automated count (number/volume) 0.6 10*3 0.0- 1.0 Automated eosinophil count 0.3 10*3/uL 0.0-0.3 Automated [...] Serum or plasma aspartate aminotransferase measurement (enzymatic activity/volume) 18 U/L 5-34 Serum or plasma alanine aminotransferase measurement (enzymatic activity/volume) 10 U/L 0-55 Serum or plasma protein [...] Automated erythrocyte mean corpuscular hemoglobin concentration measurement (mass/volume) 33 g/dL 32-36 Automated erythrocyte distribution width ratio 14.1 % 10.0- 14.5 Automated blood platelet count (count/volume) 170 10*3/uL [...] Serum or plasma aspartate aminotransferase measurement (enzymatic activity/volume) 15 U/L 5-34 Serum or plasma alanine aminotransferase measurement (enzymatic activity/volume) 9 U/L 0-55 Serum or plasma protein [...] Automated erythrocyte mean corpuscular hemoglobin concentration measurement (mass/volume) 31 g/dL 32-36 Automated erythrocyte distribution width ratio 14.2 % 10.0- 14.5 Automated blood platelet count (count/volume) 193 10*3/uL [...] Serum or plasma aspartate aminotransferase measurement (enzymatic activity/volume) 17 U/L 5-34 Serum or plasma alanine aminotransferase measurement (enzymatic activity/volume) 13 U/L 0-55 Serum or plasma protein measurement (mass/volume) 5.2 g/dL 6.4-8.2 Serum or plasma albumin measurement (mass/volume) 2.8 g/dL 3.2-4.5 Blood lactic acid measurement (moles/volume) - 04/13/18 06:45 Blood lactic acid measurement (moles/volume) 0.94 mmol/L 0.50- 2.00 Bacterial blood culture - 04/13/18 06:45 Bacterial blood culture [facility] Complete blood count (CBC) with automated white [...] Automated erythrocyte mean corpuscular hemoglobin concentration measurement (mass/volume) 33 g/dL 32-36 Automated erythrocyte distribution width ratio 14.7 % 10.0- 14.5 Automated blood platelet count (count/volume) 173 10*3/uL [...] Blood monocytes automated count (number/volume) 0.7 10*3 0.0- 1.0 Automated eosinophil count 0.0 10*3/uL 0.0-0.3 Automated blood basophil count (count/volume) 0.0 10*3/uL 0.0-0.1 Comprehensive metabolic panel - 04/13/18 06:56 Serum or plasma sodium measurement (moles/volume) 133 mmol/L 135-145 Serum or plasma potassium measurement (moles/volume) 4.6 mmol/L 3.6-5.0 Serum or plasma chloride measurement (moles/volume) 99 mmol/L 98-107 Carbon dioxide 23 mmol/L 21-32 Serum or plasma anion gap determination (moles/volume) 11 mmol/L 5-14 Serum or plasma urea nitrogen measurement (mass/volume) 20 mg/dL 7-18 Serum or plasma creatinine measurement (mass/volume) 0.86 mg/dL 0.60-1.30 Serum or plasma urea nitrogen/creatinine mass ratio 23 NRG Serum or plasma creatinine measurement with calculation of estimated glomerular filtration rate > NRG Serum or plasma glucose measurement (mass/volume) 96 mg/dL 70-105 Serum or plasma calcium measurement (mass/volume) 9.8 mg/dL 8.5-10.1 Serum or plasma total bilirubin measurement (mass/volume) 0.8 mg/dL 0.1-1.0 Serum or plasma alkaline phosphatase measurement (enzymatic activity/volume) 287 U/L 40-136 Serum or plasma aspartate aminotransferase measurement (enzymatic activity/volume) 88 U/L 5-34 Serum or plasma alanine aminotransferase measurement (enzymatic activity/volume) 111 U/L 0-55 Serum or plasma protein measurement (mass/volume) 7.2 g/dL 6.4-8.2 Serum or plasma albumin measurement (mass/volume) 3.8 g/dL 3.2-4.5 CALCIUM CORRECTED 10.0 mg/dL 8.5-10.1 Bacterial blood culture - 04/13/18 06:56 Bacterial blood culture NG NRG Complete urinalysis with reflex to culture - 04/13/18 07:00 Urine color determination YELLOW NRG Urine clarity determination CLOUDY NRG Urine pH measurement by test strip 6 5-9 Specific gravity of urine by test strip 1.015 1.016-1.022 Urine protein assay by test strip, semi-quantitative 2+ NEGATIVE Urine glucose detection by automated test strip NEGATIVE NEGATIVE Erythrocytes detection in urine sediment by light microscopy 3+ NEGATIVE Urine ketones detection by automated test strip 2+ NEGATIVE Urine nitrite detection by test strip NEGATIVE NEGATIVE Urine total bilirubin detection by test strip NEGATIVE NEGATIVE Urine urobilinogen measurement by automated test strip (mass/volume) NORMAL NORMAL Urine leukocyte esterase detection by dipstick 3+ NEGATIVE Automated urine sediment erythrocyte count by microscopy (number/high power field) [HPF] NRG Automated urine sediment leukocyte count by microscopy (number/high power field) TNTC NRG Bacteria detection in urine sediment by light microscopy LARGE NRG Squamous epithelial cells detection in urine sediment by light microscopy NONE NRG Crystals detection in urine sediment by light microscopy NONE NRG Casts detection in urine sediment by light microscopy NONE NRG Mucus detection in urine sediment by light microscopy NEGATIVE NRG Complete urinalysis with reflex to culture YES NRG Amorphous sediment detection in urine sediment by light microscopy FEW ORA URATES NRG Bacterial urine culture - 04/13/18 07:00 Bacterial urine culture YEAST NRG COLONY COUNT >100,000/ML NRG Complete blood count (CBC) with automated white blood cell (WBC) differential - 04/14/18 05:10 Blood leukocytes automated count (number/volume) 6.2 10*3/uL 4.3-11.0 Blood erythrocytes automated count (number/volume) 3.81 10*6/uL 4.35-5.85 Venous blood hemoglobin measurement (mass/volume) 11.1 g/dL 11.5-16.0 Blood hematocrit (volume fraction) 35 % 35-52 Automated erythrocyte mean corpuscular volume 92 [foz_us] 80-99 Automated erythrocyte mean corpuscular hemoglobin (mass per erythrocyte) 29 pg 25-34 Automated erythrocyte mean corpuscular hemoglobin concentration measurement (mass/volume) 32 g/dL 32-36 Automated erythrocyte distribution width ratio 14.7 % 10.0- 14.5 Automated blood platelet count (count/volume) 170 10*3/uL 130-400 Automated blood platelet mean volume measurement 9.8 [foz_us] 7.4-10.4 Automated blood neutrophils/100 leukocytes 70 % 42-75 Automated blood lymphocytes/100 leukocytes 20 % 12-44 Blood monocytes/100 leukocytes 9 % 0-12 Automated blood eosinophils/100 leukocytes 1 % 0-10 Automated blood basophils/100 leukocytes 0 % 0-10 Blood neutrophils automated count (number/volume) 4.3 10*3 1.8-7.8 Blood lymphocytes automated count (number/volume) 1.2 10*3 1.0-4.0 Blood monocytes automated count (number/volume) 0.5 10*3 0.0- 1.0 Automated eosinophil count 0.1 10*3/uL 0.0-0.3 Automated blood basophil count (count/volume) 0.0 10*3/uL 0.0-0.1 Comprehensive metabolic panel - 04/14/18 05:10 Serum or plasma sodium measurement (moles/volume) 136 mmol/L 135-145 Serum or plasma potassium measurement (moles/volume) 4.3 mmol/L 3.6-5.0 Serum or plasma chloride measurement (moles/volume) 102 mmol/L 98-107 Carbon dioxide 25 mmol/L 21-32 Serum or plasma anion gap determination (moles/volume) 9 mmol/L 5-14 Serum or plasma urea nitrogen measurement (mass/volume) 12 mg/dL 7-18 Serum or plasma creatinine measurement (mass/volume) 0.69 mg/dL 0.60-1.30 Serum or plasma urea nitrogen/creatinine mass ratio 17 NRG Serum or plasma creatinine measurement with calculation of estimated glomerular filtration rate > [facility] Serum or plasma glucose measurement (mass/volume) 89 mg/dL 70-105 Serum or plasma calcium measurement (mass/volume) 9.3 mg/dL 8.5-10.1 Serum or plasma total bilirubin measurement (mass/volume) 0.4 mg/dL 0.1-1.0 Serum or plasma alkaline phosphatase measurement (enzymatic activity/volume) 206 U/L 40-136 Serum or plasma aspartate aminotransferase measurement (enzymatic activity/volume) 44 U/L 5-34 Serum or plasma alanine aminotransferase measurement (enzymatic activity/volume) 65 U/L 0-55 Serum or plasma protein measurement (mass/volume) 6.1 g/dL 6.4-8.2 Serum or plasma albumin measurement (mass/volume) 3.2 g/dL 3.2-4.5 CALCIUM CORRECTED 9.9 mg/dL 8.5-10.1 Influenza virus A and B antigen detection - 04/14/18 09:15 FLU RESULT NEGATIVE FOR INFLUENZA A AND B ANTIGENS BY IA [facility] Automated blood complete blood count (hemogram) panel - 04/15/18 06:00 Blood leukocytes automated count (number/volume) 4.8 10*3/uL 4.3-11.0 Blood erythrocytes automated count (number/volume) 3.51 10*6/uL 4.35-5.85 Venous blood hemoglobin measurement (mass/volume) 10.4 g/dL 11.5-16.0 Blood hematocrit (volume fraction) 33 % 35-52 Automated erythrocyte mean corpuscular volume 93 [foz_us] 80-99 Automated erythrocyte mean corpuscular hemoglobin (mass per erythrocyte) 30 pg 25-34 Automated erythrocyte mean corpuscular hemoglobin concentration measurement (mass/volume) 32 g/dL 32-36 Automated erythrocyte distribution width ratio 14.7 % 10.0- 14.5 Automated blood platelet count (count/volume) 179 10*3/uL 130-400 Automated blood platelet mean volume measurement 9.9 [foz_us] 7.4-10.4 Whole blood basic metabolic panel - 04/15/18 06:00 Serum or plasma sodium measurement (moles/volume) 139 mmol/L 135-145 Serum or plasma potassium measurement (moles/volume) 3.8 mmol/L 3.6-5.0 Serum or plasma chloride measurement (moles/volume) 105 mmol/L 98-107 Carbon dioxide 27 mmol/L 21-32 Serum or plasma anion gap determination (moles/volume) 7 mmol/L 5-14 Serum or plasma urea nitrogen measurement (mass/volume) 6 mg/dL 7-18 Serum or plasma creatinine measurement (mass/volume) 0.61 mg/dL 0.60-1.30 Serum or plasma urea nitrogen/creatinine mass ratio 10 NRG Serum or plasma creatinine measurement with calculation of estimated glomerular filtration rate > NRG Serum or plasma glucose measurement (mass/volume) 82 mg/dL 70-105 Serum or plasma calcium measurement (mass/volume) 9.0 mg/dL 8.5-10.1 Automated blood complete blood count (hemogram) panel - 04/16/18 05:10 Blood leukocytes automated count (number/volume) 5.0 10*3/uL 4.3-11.0 Blood erythrocytes automated count (number/volume) 3.66 10*6/uL 4.35-5.85 Venous blood hemoglobin measurement (mass/volume) 10.9 g/dL 11.5-16.0 Blood hematocrit (volume fraction) 34 % 35-52 Automated erythrocyte mean corpuscular volume 93 [foz_us] 80-99 Automated erythrocyte mean corpuscular hemoglobin (mass per erythrocyte) 30 pg 25-34 Automated erythrocyte mean corpuscular hemoglobin concentration measurement (mass/volume) 32 g/dL 32-36 Automated erythrocyte distribution width ratio 14.4 % 10.0- 14.5 Automated blood platelet count (count/volume) 195 10*3/uL 130-400 Automated blood platelet mean volume measurement 9.6 [foz_us] 7.4-10.4 Comprehensive metabolic panel - 04/16/18 05:10 Serum or plasma sodium measurement (moles/volume) 139 mmol/L 135-145 Serum or plasma potassium measurement (moles/volume) 3.9 mmol/L 3.6-5.0 Serum or plasma chloride measurement (moles/volume) 104 mmol/L 98-107 Carbon dioxide 28 mmol/L 21-32 Serum or plasma anion gap determination (moles/volume) 7 mmol/L 5-14 Serum or plasma urea nitrogen measurement (mass/volume) 5 mg/dL 7-18 Serum or plasma creatinine measurement (mass/volume) 0.61 mg/dL 0.60-1.30 Serum or plasma urea nitrogen/creatinine mass ratio 8 NRG Serum or plasma creatinine measurement with calculation of estimated glomerular filtration rate > NRG Serum or plasma glucose measurement (mass/volume) 82 mg/dL 70-105 Serum or plasma calcium measurement (mass/volume) 9.3 mg/dL 8.5-10.1 Serum or plasma total bilirubin measurement (mass/volume) 0.3 mg/dL 0.1-1.0 Serum or plasma alkaline phosphatase measurement (enzymatic activity/volume) 141 U/L 40-136 Serum or plasma aspartate aminotransferase measurement (enzymatic activity/volume) 24 U/L 5-34 Serum or plasma alanine aminotransferase measurement (enzymatic activity/volume) 35 U/L 0-55 Serum or plasma protein measurement (mass/volume) 5.7 g/dL 6.4-8.2 Serum or plasma albumin measurement (mass/volume) 3.0 g/dL 3.2-4.5 CALCIUM CORRECTED 10.1 mg/dL 8.5-10.1 Comprehensive metabolic panel - 04/17/18 05:25 Serum or plasma sodium measurement (moles/volume) 139 mmol/L 135-145 Serum or plasma potassium measurement (moles/volume) 3.7 mmol/L 3.6-5.0 Serum or plasma chloride measurement (moles/volume) 102 mmol/L 98-107 Carbon dioxide 27 mmol/L 21-32 Serum or plasma anion gap determination (moles/volume) 10 mmol/L 5-14 Serum or plasma urea nitrogen measurement (mass/volume) 6 mg/dL 7-18 Serum or plasma creatinine measurement (mass/volume) 0.61 mg/dL 0.60-1.30 Serum or plasma urea nitrogen/creatinine mass ratio 10 NRG Serum or plasma creatinine measurement with calculation of estimated glomerular filtration rate > NRG Serum or plasma glucose measurement (mass/volume) 104 mg/dL 70-105 Serum or plasma calcium measurement (mass/volume) 9.5 mg/dL 8.5-10.1 Serum or plasma total bilirubin measurement (mass/volume) 0.4 mg/dL 0.1-1.0 Serum or plasma alkaline phosphatase measurement (enzymatic activity/volume) 156 U/L 40-136 Serum or plasma aspartate aminotransferase measurement (enzymatic activity/volume) 23 U/L 5-34 Serum or plasma alanine aminotransferase measurement (enzymatic activity/volume) 31 U/L 0-55 Serum or plasma protein measurement (mass/volume) 6.6 g/dL 6.4-8.2 Serum or plasma albumin measurement (mass/volume) 3.4 g/dL 3.2-4.5 CALCIUM CORRECTED 10.0 mg/dL 8.5-10.1 Bacterial blood culture - 08/29/18 11:55 Bacterial blood culture NG NRG Complete urinalysis with reflex to culture - 08/29/18 12:09 Urine color determination YELLOW NRG Urine clarity determination VERY CLOUDY NRG Urine pH measurement by test strip 6.5 5-9 Specific gravity of urine by test strip 1.015 1.016-1.022 Urine protein assay by test strip, semi-quantitative 3+ NEGATIVE Urine glucose detection by automated test strip NEGATIVE NEGATIVE Erythrocytes detection in urine sediment by light microscopy 5+ NEGATIVE Urine ketones detection by automated test strip 1+ NEGATIVE Urine nitrite detection by test strip NEGATIVE NEGATIVE Urine total bilirubin detection by test strip NEGATIVE NEGATIVE Urine urobilinogen measurement by automated test strip (mass/volume) 4 mg/dL NORMAL Urine leukocyte esterase detection by dipstick 3+ NEGATIVE Automated urine sediment erythrocyte count by microscopy (number/high power field) [HPF] NRG Automated urine sediment leukocyte count by microscopy (number/high power field) TNTC NRG Bacteria detection in urine sediment by light microscopy NEGATIVE NRG Squamous epithelial cells detection in urine sediment by light microscopy NONE NRG Crystals detection in urine sediment by light microscopy NONE NRG Casts detection in urine sediment by light microscopy NONE NRG Mucus detection in urine sediment by light microscopy NEGATIVE NRG Complete urinalysis with reflex to culture YES NRG Amorphous sediment detection in urine sediment by light microscopy LARGE ORA URATES NRG Bacterial urine culture - 08/29/18 12:09 Bacterial urine culture YEAST NRG COLONY COUNT >100,000/ML NRG Complete blood count (CBC) with automated white blood cell (WBC) differential - 08/29/18 12:36 Blood leukocytes automated count (number/volume) 16.1 10*3/uL 4.3-11.0 Blood erythrocytes automated count (number/volume) 4.17 10*6/uL 4.35-5.85 Venous blood hemoglobin measurement (mass/volume) 12.3 g/dL 11.5-16.0 Blood hematocrit (volume fraction) 37 % 35-52 Automated erythrocyte mean corpuscular volume 88 [foz_us] 80-99 Automated erythrocyte mean corpuscular hemoglobin (mass per erythrocyte) 30 pg 25-34 Automated erythrocyte mean corpuscular hemoglobin concentration measurement (mass/volume) 33 g/dL 32-36 Automated erythrocyte distribution width ratio 13.5 % 10.0- 14.5 Automated blood platelet count (count/volume) 239 10*3/uL 130-400 Automated blood platelet mean volume measurement 10.5 [foz_us] 7.4-10.4 Automated blood neutrophils/100 leukocytes 84 % 42-75 Automated blood lymphocytes/100 leukocytes 8 % 12-44 Blood monocytes/100 leukocytes 9 % 0-12 Automated blood eosinophils/100 leukocytes 0 % 0-10 Automated blood basophils/100 leukocytes 0 % 0-10 Blood neutrophils automated count (number/volume) 13.5 10*3 1.8-7.8 Blood lymphocytes automated count (number/volume) 1.2 10*3 1.0-4.0 Blood monocytes automated count (number/volume) 1.4 10*3 0.0- 1.0 Automated eosinophil count 0.0 10*3/uL 0.0-0.3 Automated blood basophil count (count/volume) 0.0 10*3/uL 0.0-0.1 Blood lactic acid measurement (moles/volume) - 08/29/18 12:36 Blood lactic acid measurement (moles/volume) 1.05 mmol/L 0.50- 2.00 Blood manual differential performed detection - 08/29/18 12:36 Blood monocytes/100 leukocytes 5 % NRG Manual blood segmented neutrophils/100 leukocytes 86 % NRG Blood band neutrophils/100 leukocytes 0 % NR Manual blood lymphocytes/100 leukocytes 8 % NR Manual eosinophils/100 leukocytes in nose 0 % [facility] Manual blood basophils/100 leukocytes 1 % [facility] Blood erythrocyte morphology finding identification NORMAL [facility] Comprehensive metabolic panel - 08/29/18 12:36 Serum or plasma sodium measurement (moles/volume) 129 mmol/L 135-145 Serum or plasma potassium measurement (moles/volume) 4.3 mmol/L 3.6-5.0 Serum or plasma chloride measurement (moles/volume) 97 mmol/L 98-107 Carbon dioxide 22 mmol/L 21-32 Serum or plasma anion gap determination (moles/volume) 10 mmol/L 5-14 Serum or plasma urea nitrogen measurement (mass/volume) 14 mg/dL 7-18 Serum or plasma creatinine measurement (mass/volume) 0.78 mg/dL 0.60-1.30 Serum or plasma urea nitrogen/creatinine mass ratio 18 NRG Serum or plasma creatinine measurement with calculation of estimated glomerular filtration rate > NRG Serum or plasma glucose measurement (mass/volume) 117 mg/dL 70-105 Serum or plasma calcium measurement (mass/volume) 9.3 mg/dL 8.5-10.1 Serum or plasma total bilirubin measurement (mass/volume) 0.5 mg/dL 0.1-1.0 Serum or plasma alkaline phosphatase measurement (enzymatic activity/volume) 60 U/L 40-136 Serum or plasma aspartate aminotransferase measurement (enzymatic activity/volume) 13 U/L 5-34 Serum or plasma alanine aminotransferase measurement (enzymatic activity/volume) 9 U/L 0-55 Serum or plasma protein measurement (mass/volume) 6.4 g/dL 6.4-8.2 Serum or plasma albumin measurement (mass/volume) 3.4 g/dL 3.2-4.5 CALCIUM CORRECTED 9.8 mg/dL 8.5-10.1 PT panel in platelet poor plasma by coagulation assay - 08/29/18 12:36 Prothrombin time (PT) in platelet poor plasma by coagulation assay 15.0 s 12.2-14.7 INR in platelet poor plasma or blood by coagulation assay 1.1 0.8-1.4 Activated partial thromboplastin time (aPTT) in platelet poor plasma bycoagulation assay - 08/29/18 12:36 Activated partial thromboplastin time (aPTT) in platelet poor plasma bycoagulation assay 33 s 24-35 Bacterial blood culture - 08/29/18 12:36 Bacterial blood culture [facility] Complete blood count (CBC) with automated white blood cell (WBC) differential - 08/30/18 06:04 Blood leukocytes automated count (number/volume) 10.0 10*3/uL 4.3-11.0 Blood erythrocytes automated count (number/volume) 3.88 10*6/uL 4.35-5.85 Venous blood hemoglobin measurement (mass/volume) 11.4 g/dL 11.5-16.0 Blood hematocrit (volume fraction) 35 % 35-52 Automated erythrocyte mean corpuscular volume 89 [foz_us] 80-99 Automated erythrocyte mean corpuscular hemoglobin (mass per erythrocyte) 29 pg 25-34 Automated erythrocyte mean corpuscular hemoglobin concentration measurement (mass/volume) 33 g/dL 32-36 Automated erythrocyte distribution width ratio 13.8 % 10.0- 14.5 Automated blood platelet count (count/volume) 192 10*3/uL 130-400 Automated blood platelet mean volume measurement 10.6 [foz_us] 7.4-10.4 Automated blood neutrophils/100 leukocytes 78 % 42-75 Automated blood lymphocytes/100 leukocytes 11 % 12-44 Blood monocytes/100 leukocytes 9 % 0-12 Automated blood eosinophils/100 leukocytes 2 % 0-10 Automated blood basophils/100 leukocytes 0 % 0-10 Blood neutrophils automated count (number/volume) 7.8 10*3 1.8-7.8 Blood lymphocytes automated count (number/volume) 1.1 10*3 1.0-4.0 Blood monocytes automated count (number/volume) 0.9 10*3 0.0- 1.0 Automated eosinophil count 0.2 10*3/uL 0.0-0.3 Automated blood basophil count (count/volume) 0.0 10*3/uL 0.0-0.1 Comprehensive metabolic panel - 08/30/18 06:04 Serum or plasma sodium measurement (moles/volume) 137 mmol/L 135-145 Serum or plasma potassium measurement (moles/volume) 4.2 mmol/L 3.6-5.0 Serum or plasma chloride measurement (moles/volume) 107 mmol/L 98-107 Carbon dioxide 22 mmol/L 21-32 Serum or plasma anion gap determination (moles/volume) 8 mmol/L 5-14 Serum or plasma urea nitrogen measurement (mass/volume) 14 mg/dL 7-18 Serum or plasma creatinine measurement (mass/volume) 0.76 mg/dL 0.60-1.30 Serum or plasma urea nitrogen/creatinine mass ratio 18 NRG Serum or plasma creatinine measurement with calculation of estimated glomerular filtration rate > NRG Serum or plasma glucose measurement (mass/volume) 84 mg/dL 70-105 Serum or plasma calcium measurement (mass/volume) 9.4 mg/dL 8.5-10.1 Serum or plasma total bilirubin measurement (mass/volume) 0.4 mg/dL 0.1-1.0 Serum or plasma alkaline phosphatase measurement (enzymatic activity/volume) 51 U/L 40-136 Serum or plasma aspartate aminotransferase measurement (enzymatic activity/volume) 12 U/L 5-34 Serum or plasma alanine aminotransferase measurement (enzymatic activity/volume) 9 U/L 0-55 Serum or plasma protein measurement (mass/volume) 5.8 g/dL 6.4-8.2 Serum or plasma albumin measurement (mass/volume) 3.0 g/dL 3.2-4.5 CALCIUM CORRECTED 10.2 mg/dL 8.5-10.1 Complete blood count (CBC) with automated white blood cell (WBC) differential - 08/31/18 05:31 Blood leukocytes automated count (number/volume) 7.6 10*3/uL 4.3-11.0 Blood erythrocytes automated count (number/volume) 4.12 10*6/uL 4.35-5.85 Venous blood hemoglobin measurement (mass/volume) 11.8 g/dL 11.5-16.0 Blood hematocrit (volume fraction) 37 % 35-52 Automated erythrocyte mean corpuscular volume 90 [foz_us] 80-99 Automated erythrocyte mean corpuscular hemoglobin (mass per erythrocyte) 29 pg 25-34 Automated erythrocyte mean corpuscular hemoglobin concentration measurement (mass/volume) 32 g/dL 32-36 Automated erythrocyte distribution width ratio 14.2 % 10.0- 14.5 Automated blood platelet count (count/volume) 246 10*3/uL 130-400 Automated blood platelet mean volume measurement 11.2 [foz_us] 7.4-10.4 Automated blood neutrophils/100 leukocytes 66 % 42-75 Automated blood lymphocytes/100 leukocytes 17 % 12-44 Blood monocytes/100 leukocytes 9 % 0-12 Automated blood eosinophils/100 leukocytes 7 % 0-10 Automated blood basophils/100 leukocytes 0 % 0-10 Blood neutrophils automated count (number/volume) 5.0 10*3 1.8-7.8 Blood lymphocytes automated count (number/volume) 1.3 10*3 1.0-4.0 Blood monocytes automated count (number/volume) 0.7 10*3 0.0- 1.0 Automated eosinophil count 0.6 10*3/uL 0.0-0.3 Automated blood basophil count (count/volume) 0.0 10*3/uL 0.0-0.1 Comprehensive metabolic panel - 08/31/18 05:31 Serum or plasma sodium measurement (moles/volume) 136 mmol/L 135-145 Serum or plasma potassium measurement (moles/volume) 4.2 mmol/L 3.6-5.0 Serum or plasma chloride measurement (moles/volume) 109 mmol/L 98-107 Carbon dioxide 21 mmol/L 21-32 Serum or plasma anion gap determination (moles/volume) 6 mmol/L 5-14 Serum or plasma urea nitrogen measurement (mass/volume) 12 mg/dL 7-18 Serum or plasma creatinine measurement (mass/volume) 0.66 mg/dL 0.60-1.30 Serum or plasma urea nitrogen/creatinine mass ratio 18 NRG Serum or plasma creatinine measurement with calculation of estimated glomerular filtration rate > NRG Serum or plasma glucose measurement (mass/volume) 79 mg/dL 70-105 Serum or plasma calcium measurement (mass/volume) 9.0 mg/dL 8.5-10.1 Serum or plasma total bilirubin measurement (mass/volume) 0.2 mg/dL 0.1-1.0 Serum or plasma alkaline phosphatase measurement (enzymatic activity/volume) 53 U/L 40-136 Serum or plasma aspartate aminotransferase measurement (enzymatic activity/volume) 15 U/L 5-34 Serum or plasma alanine aminotransferase measurement (enzymatic activity/volume) 10 U/L 0-55 Serum or plasma protein measurement (mass/volume) 5.9 g/dL 6.4-8.2 Serum or plasma albumin measurement (mass/volume) 3.0 g/dL 3.2-4.5 CALCIUM CORRECTED 9.8 mg/dL 8.5-10.1 Complete blood count (CBC) with automated white blood cell (WBC) differential - 09/19/18 15:00 Blood leukocytes automated count (number/volume) 11.6 10*3/uL 4.3-11.0 Blood erythrocytes automated count (number/volume) 4.46 10*6/uL 4.35-5.85 Venous blood hemoglobin measurement (mass/volume) 12.9 g/dL 11.5-16.0 Blood hematocrit (volume fraction) 39 % 35-52 Automated erythrocyte mean corpuscular volume 88 [foz_us] 80-99 Automated erythrocyte mean corpuscular hemoglobin (mass per erythrocyte) 29 pg 25-34 Automated erythrocyte mean corpuscular hemoglobin concentration measurement (mass/volume) 33 g/dL 32-36 Automated erythrocyte distribution width ratio 14.4 % 10.0- 14.5 Automated blood platelet count (count/volume) 281 10*3/uL 130-400 Automated blood platelet mean volume measurement 10.4 [foz_us] 7.4-10.4 Automated blood neutrophils/100 leukocytes 78 % 42-75 Automated blood lymphocytes/100 leukocytes 10 % 12-44 Blood monocytes/100 leukocytes 11 % 0-12 Automated blood eosinophils/100 leukocytes 1 % 0-10 Automated blood basophils/100 leukocytes 0 % 0-10 Blood neutrophils automated count (number/volume) 9.0 10*3 1.8-7.8 Blood lymphocytes automated count (number/volume) 1.2 10*3 1.0-4.0 Blood monocytes automated count (number/volume) 1.3 10*3 0.0- 1.0 Automated eosinophil count 0.1 10*3/uL 0.0-0.3 Automated blood basophil count (count/volume) 0.0 10*3/uL 0.0-0.1 Blood lactic acid measurement (moles/volume) - 09/19/18 15:00 Blood lactic acid measurement (moles/volume) 0.78 mmol/L 0.50- 2.00 PT panel in platelet poor plasma by coagulation assay - 09/19/18 15:00 Prothrombin time (PT) in platelet poor plasma by coagulation assay 14.1 s 12.2-14.7 INR in platelet poor plasma or blood by coagulation assay 1.0 0.8-1.4 Activated partial thromboplastin time (aPTT) in platelet poor plasma bycoagulation assay - 09/19/18 15:00 Activated partial thromboplastin time (aPTT) in platelet poor plasma bycoagulation assay 31 s 24-35 Comprehensive metabolic panel - 09/19/18 15:00 Serum or plasma sodium measurement (moles/volume) 129 mmol/L 135-145 Serum or plasma potassium measurement (moles/volume) 5.1 mmol/L 3.6-5.0 Serum or plasma chloride measurement (moles/volume) 96 mmol/L 98-107 Carbon dioxide 26 mmol/L 21-32 Serum or plasma anion gap determination (moles/volume) 7 mmol/L 5-14 Serum or plasma urea nitrogen measurement (mass/volume) 17 mg/dL 7-18 Serum or plasma creatinine measurement (mass/volume) 0.87 mg/dL 0.60-1.30 Serum or plasma urea nitrogen/creatinine mass ratio 20 NRG Serum or plasma creatinine measurement with calculation of estimated glomerular filtration rate > NRG Serum or plasma glucose measurement (mass/volume) 109 mg/dL 70-105 Serum or plasma calcium measurement (mass/volume) 10.3 mg/dL 8.5-10.1 Serum or plasma total bilirubin measurement (mass/volume) 0.6 mg/dL 0.1-1.0 Serum or plasma alkaline phosphatase measurement (enzymatic activity/volume) 71 U/L 40-136 Serum or plasma aspartate aminotransferase measurement (enzymatic activity/volume) 17 U/L 5-34 Serum or plasma alanine aminotransferase measurement (enzymatic activity/volume) 8 U/L 0-55 Serum or plasma protein measurement (mass/volume) 7.4 g/dL 6.4-8.2 Serum or plasma albumin measurement (mass/volume) 3.7 g/dL 3.2-4.5 CALCIUM CORRECTED 10.5 mg/dL 8.5-10.1 Bacterial blood culture - 09/19/18 15:00 Bacterial blood culture NG NRG Complete urinalysis with reflex to culture - 09/19/18 15:10 Urine color determination YELLOW NRG Urine clarity determination SLIGHTLY CLOUDY NRG Urine pH measurement by test strip 6 5-9 Specific gravity of urine by test strip 1.015 1.016-1.022 Urine protein assay by test strip, semi-quantitative 2+ NEGATIVE Urine glucose detection by automated test strip NEGATIVE NEGATIVE Erythrocytes detection in urine sediment by light microscopy 4+ NEGATIVE Urine ketones detection by automated test strip NEGATIVE NEGATIVE Urine nitrite detection by test strip NEGATIVE NEGATIVE Urine total bilirubin detection by test strip NEGATIVE NEGATIVE Urine urobilinogen measurement by automated test strip (mass/volume) NORMAL NORMAL Urine leukocyte esterase detection by dipstick 3+ NEGATIVE Automated urine sediment erythrocyte count by microscopy (number/high power field) RARE NRG Automated urine sediment leukocyte count by microscopy (number/high power field) TNTC NRG Bacteria detection in urine sediment by light microscopy LARGE NRG Squamous epithelial cells detection in urine sediment by light microscopy 10-25 NRG Crystals detection in urine sediment by light microscopy NONE NRG Casts detection in urine sediment by light microscopy NONE NRG Mucus detection in urine sediment by light microscopy MODERATE NRG Complete urinalysis with reflex to culture NO NRG Bacterial urine culture - 09/19/18 15:10 Bacterial urine culture NG NRG Bacterial blood culture - 09/19/18 15:16 Bacterial blood culture NG NRG Comprehensive Metabolic Panel - 09/20/18 05:15 Albumin 2.8 g/dL 3.6-5.1 ALP 58 U/L 35-130 ALT <6 U/L 6-45 Anion Gap 11 6-14 AST 10 U/L 2-40 BUN 20 mg/dL 5-25 Calcium 9.2 mg/dL 8.3-10.4 Chloride 101 mmol/L 95-114 CO2 26 mEq/L 22-33 Creat 0.85 mg/dL 0.50-1.50 eGFR 63 mL/min/1.73m2 >59 Globulin 2.5 g/dL 2.3-3.5 Glucose 89 mg/dL 70-110 Osmo 277 280-295 Potassium 5.0 mmol/L 3.5-5.3 Sodium 133 mmol/L 134-148 TBil 0.4 mg/dL 0.2-1.2 TP 5.3 g/dL 6.0-8.3 Comprehensive Metabolic Panel - 09/21/18 05:20 Albumin 2.8 g/dL 3.6-5.1 ALP 57 U/L 35-130 ALT 8 U/L 6-45 Anion Gap 11 6-14 AST 13 U/L 2-40 BUN 12 mg/dL 5-25 Calcium 9.4 mg/dL 8.3-10.4 Chloride 104 mmol/L 95-114 CO2 26 mEq/L 22-33 Creat 0.69 mg/dL 0.50-1.50 eGFR 80 mL/min/1.73m2 >59 Globulin 2.6 g/dL 2.3-3.5 Glucose 87 mg/dL 70-110 Osmo 282 280-295 Potassium 4.4 mmol/L 3.5-5.3 Sodium 137 mmol/L 134-148 TBil 0.3 mg/dL 0.2-1.2 TP 5.4 g/dL 6.0-8.3 Comprehensive Metabolic Panel - 09/22/18 05:15 Albumin 2.9 g/dL 3.6-5.1 ALP 59 U/L 35-130 ALT 10 U/L 6-45 Anion Gap 11 6-14 AST 15 U/L 2-40 BUN 11 mg/dL 5-25 Calcium 9.7 mg/dL 8.3-10.4 Chloride 102 mmol/L 95-114 CO2 27 mEq/L 22-33 Creat 0.68 mg/dL 0.50-1.50 eGFR 82 mL/min/1.73m2 >59 Globulin 2.7 g/dL 2.3-3.5 Glucose 86 mg/dL 70-110 Osmo 280 280-295 Potassium 4.4 mmol/L 3.5-5.3 Sodium 136 mmol/L 134-148 TBil 0.3 mg/dL 0.2-1.2 TP 5.6 g/dL 6.0-8.3 Encounters ACCT No. Visit Date/Time Discharge Status Pt. Type Provider Facility Loc./Unit Complaint [id number] 09/19/2018 18:37:00 Document Registration [id number] 09/19/2018 17:23:00 09/22/2018 12:00:00 DIS Inpatient Formerly [facility] ICU [id number] 09/19/2018 17:48:38 Document Registration [id number] 09/19/2018 14:50:00 09/19/2018 18:07:00 DIS Outpatient JAE MOREAU [facility] ER FEVER;AMS [id number] 08/29/2018 13:55:00 09/01/2018 10:50:00 DIS Inpatient SHELLIE OLIVIER MD [facility] 4TH ANXIETY,UTI,FEVER [id number] 04/13/2018 11:49:00 04/17/2018 16:55:00 DIS Outpatient SHELLIE OLIVIER MD [facility] 4TH UTI,SEPSIS [id number] 08/09/2017 00:01:00 08/13/2017 11:35:00 DIS Inpatient SHELLIE OLIVIER MD Via [facility] 4TH SEPSIS,FEVER,HYPOXIA,S/P FALL, R PELVIS FX,AMS [id number] 10/29/2016 08:14:00 10/29/2016 23:59:59 CLS Outpatient GEORGE TEIXEIRA Via [facility] LAB ELEVATED HCB LOW WBC [id number] 10/21/2015 09:11:00 10/24/2015 14:30:00 DIS Inpatient NELSON CURRY DO [facility] 4TH AMS [id number] 01/21/2015 15:19:00 01/21/2015 16:54:00 DIS Emergency JERSON BOWLES MD [facility] ER FALL/HEAD LAC [id number] 01/11/2015 12:43:00 01/21/2015 13:18:00 DIS Inpatient ARIAN SALINAS MD Via [address] SWB--UTI/ADVACING DEMENTIA [id number] 01/08/2015 08:50:00 01/11/2015 12:35:00 DIS Inpatient ARIAN SALINAS MD [facility] 4TH ALTERED MENTAL STATUS;UNCONTROLLED HTN;UTI;HYPOMAG [id number] 10/18/2014 08:24:00 10/18/2014 13:54:00 DIS Emergency AZALEA GANDHI MD [facility] ER CONFUSION [id number] 04/15/2014 15:50:00 04/16/2014 17:35:00 DIS Inpatient ARIAN SALINAS MD [facility] 4TH UTI [id number] 01/27/2014 14:23:00 01/29/2014 13:55:00 DIS Inpatient ARIAN SALINAS MD Via [facility] 4TH MARKED ELECTROLYTE ABNORMALITIES,AMS [id number] 05/27/2013 12:00:00 05/27/2013 23:59:59 CLS Outpatient ARIAN SALINAS MD Via [facility] HIP FX, COUMADIN THERAPY [id number] 04/28/2013 11:30:00 04/28/2013 23:59:59 CLS Outpatient RITA ACBA, ARIAN Turpin [facility] HH ANTICOAG THERAPY [id number] 04/08/2013 14:48:00 04/08/2013 23:59:59 CLS Outpatient [id number] 03/18/2013 13:59:00 03/18/2013 23:59:59 CLS Outpatient [id number] 02/18/2013 13:42:00 02/18/2013 23:59:59 CLS Outpatient [id number] 01/14/2013 19:30:00 01/22/2013 16:00:00 DIS Inpatient MIKE CABA, MOSES Lopez [facility] SURGICAL R HIP FX
[2018-10-11 17:39] LABS: BILIRUBIN,URINE NEGATIVE (NEGATIVE); CLARITY,URINE VERY CLOUDY; COLOR,URINE YELLOW; GLUCOSE, URINE (UA) NEGATIVE (NEGATIVE); KETONES,URINE NEGATIVE (NEGATIVE); LEUKOCYTE ESTERASE ,URINE 3+ (NEGATIVE); NITRITE,URINE NEGATIVE (NEGATIVE); PH,URINE 7 (5-9); PROTEIN,URINE 2+ (NEGATIVE); UROBILINOGEN,URINE NORMAL (NORMAL)
--- NOTE | 2018-10-11 17:39 | NUR ---
DAUGHTER ET OTHER MALE W/ PT AT THIS TIME.
[2018-10-11 17:47] LABS: AMORPHOUS SEDIMENT,UR MOD AMOR PHOSPHATE /LPF; BACTERIA,URINE MODERATE /HPF; RBC,URINE 25-50 /HPF; SQUAMOUS EPITHELIAL CELL,UR RARE /HPF; WBC,URINE TNTC /HPF; YEAST,URINE MODERATE /HPF
--- NOTE | 2018-10-11 17:47 | Diagnostic Imaging Report ---
INDICATION: Shortness breath. EXAMINATION: Portable chest at 05:07 p.m. FINDINGS: There is a hiatal hernia. Heart size and pulmonary vascularity are normal. Lungs are clear. IMPRESSION: Large hiatal hernia. No acute abnormalities in the chest. Dictated by: Dictated on workstation # [id number]
--- NOTE | 2018-10-11 17:49 | Diagnostic Imaging Report ---
INDICATION: Right humerus deformity. 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 The distal humerus is fractured and displaced at the level of the epicondyles. It remains in articulation with the radius and ulna. Distal component is displaced laterally. IMPRESSION: Patient has a displaced fracture of the distal humerus. The elbow joint appears to be grossly intact. Dictated by: Dictated on workstation # [id number]
[2018-10-11] MEDS ORDERED: cefTRIAXone FOR IV USE 1,000 MG in WATER (STERILE) FOR INJECTION 10 ML IV ONE (18:00)
[2018-10-11] MEDS ORDERED: risperiDONE 1 MG (RisperDAL) TAB PO ONE (18:30)
[2018-10-11] MEDS ORDERED: CEFD300C3 PO (18:45)
[2018-10-11] MEDS ORDERED: RISP0.2517 PO (18:59)
[2018-10-11 19:10] VITALS: BP 156/68
== END 2018-10-11 19:10 | disposition home or self-care (01) ==
LOC: EDUNIT# 16:53 → ER 16:55
DX: F41.9 Anxiety disorder, unspecified (principal); R41.82 Altered mental status, unspecified; N39.0 Urinary tract infection, site not specified; F03.90 Unspecified dementia, unspecified severity, without behavioral disturbance, psychotic disturbance, mood disturbance, and anxiety; I10 Essential (primary) hypertension; E78.00 Pure hypercholesterolemia, unspecified; F32.9 Major depressive disorder, single episode, unspecified; Z86.718 Personal history of other venous thrombosis and embolism; Z88.0 Allergy status to penicillin; Z82.49 Family history of ischemic heart disease and other diseases of the circulatory system
CPT/HCPCS: 36415; 51702; 71045; 73060; 80053; 81000; 85025; 87088; 96365; 96375

== ENCOUNTER 2018-11-15 09:13 | Emergency (ER) | payer MEDICARE ==
[~2018-11-15] VITALS: Ht 167.6 cm; Wt 60.8 kg
[~2018-11-15 09:13] MED LIST changes: +CEFD300C3 PO; +RISP0.2517 PO; +VANCOMYCIN ORAL SUSPENSION 60 ML BOTTLE PO SCH
--- NOTE | 2018-11-15 09:43 | ED GI ---
General Chief Complaint: Abdominal/GI Problems Stated Complaint: DIARRHEA X 2 WEEKS Nursing Triage Note: PT PRESENTS TO ED FROM HOME VIA EMS FOR COMPLAINTS OF FOUL SMELLING DIARRHEA X 2 WEEKS. PT HAS BEEN SEEN IN OUR ED MULTIPLE TIMES RECENTLY FOR UTI'S AND HAS BEEN ON ANTIBIOTICS. PT DENIES ANY PAIN AT THIS TIME AND IS ALERT AND ORIENTED X 3. Sepsis Screen: No Definite Risk Source of Information: Patient, EMS Exam Limitations: Physical Impairments (hard of hearing) History of Present Illness Date Seen by Provider: Nov 15, 2018 Time Seen by Provider: 09:18 Initial Comments Here with report of diarrhea for 2 weeks. Apparently family wanted her sent to the ER because of the diarrhea. They believe it is foul-smelling and wanted to get checked out. Patient has had frequent urinary tract infections and has been on antibiotics multiple times. Patient was not aware that the family was calling the ambulance and was not happy about the transfer to the emergency department. She is answering questions well and mentating well. She denies any pain but does admit to the diarrhea. Patient denies any other concerns. Timing/Duration: Other (2 weeks) Severity/Quality: Other (no pain but does admit to moderate amount of diarrhea) Location: Other (denies pain) Radiation: No Radiation Modifying Factors: Worsens With Defecating; Improves With Resting Associated Symptoms: No Back Pain, No Chest Pain, No Fever/Chills, No Nausea/Vomiting, No Swelling/Mass in Abdomen Allergies and Home Medications Allergies Coded Allergies: Penicillins (Unverified Allergy, Severe, EDEMA, 04/13/18) Home Medications Acetaminophen 500 Mg Tablet, 500 MG PO Q4H PRN for PAIN-MILD, (Reported) Amlodipine Besylate 10 Mg Tablet, 10 MG PO 0630, (Reported) Bisacodyl 5 Mg Tablet.dr, 5 MG PO DAILY PRN for CONSTIPATION-4TH LINE, (Reported) Cefdinir 300 Mg Capsule, 300 MG PO BID Prescribed by: ARIELA WALLS on 10/11/18 [id number] Cholecalciferol (Vitamin D3) 1,000 Unit Capsule, 2,000 UNIT PO 1530, (Reported) TAKES 2 (1000 UNIT) CAPSULES Citalopram Hydrobromide 40 Mg Tablet, 40 MG PO 1530, (Reported) Clonazepam 1 Mg Tablet, 2 MG PO 0630, (Reported) TAKES 2 (1MG) TABLETS Clonazepam 1 Mg Tablet, 1 MG PO 1530, (Reported) Cranberry Conc/Ascorbic Acid 1 Each Capsule, 2 CAP PO 1530, (Reported) Doxycycline Hyclate 100 Mg Tablet, 100 MG PO BID@07,17 Prescribed by: SHELLIE DAVENPORT on 09/01/18 0926 Lisinopril 10 Mg Tablet, 10 MG PO 0630, (Reported) Melatonin 5 Mg Capsule, 5 MG PO 1530, (Reported) Meloxicam 15 Mg Tablet, 15 MG PO 0630, (Reported) Metoprolol Succinate 25 Mg Tab.er.24h, 25 MG PO 0630, (Reported) Omeprazole 20 Mg Capsule.dr, 20 MG PO 0630, (Reported) Pediatric Multivitamin Comb#30 1 Each Tab.chew, 2 TAB.CHEW PO HS, (Reported) Potassium Chloride 10 Meq Tablet.er, 20 MEQ PO 0630, (Reported) TAKES 2 (10MEQ) TABLETS Risperidone 0.25 Mg Tablet, 0.25 MG PO evening Prescribed by: ARIELA WALLS on 10/11/18 185 Simvastatin 20 Mg Tablet, 20 MG PO 1530, (Reported) Patient Home Medication List Home Medication List Reviewed: Yes Review of Systems Review of Systems Constitutional: see HPI; No chills, No fever EENTM: No Symptoms Reported Respiratory: Denies Cough, Denies Shortness of Air Cardiovascular: Denies Chest Pain, Denies Edema Gastrointestinal: See HPI, Diarrhea; Denies Vomiting All Other Systems Reviewed Negative Unless Noted: Yes Past Xzxvhir-Mqxdel-Wenand Hx Past Med/Social Hx: Reviewed Nursing Past Med/Soc Hx Patient Social History Alcohol Use: Denies Use Recreational Drug Use: No Smoking Status: Never a Smoker 2nd Hand Smoke Exposure: No Recent Foreign Travel: No Contact w/Someone Who Travel: No Recent Infectious Disease Expo: No Recent Hopitalizations: No Immunizations Up To Date Tetanus Booster (TDap): Unknown PED Vaccines UTD: No Date of Pneumonia Vaccine: Jan 27, 2014 Date of Influenza Vaccine: Jan 27, 2014 Seasonal Allergies Seasonal Allergies: No Past Medical History Surgeries: Yes Eye Surgery, Gallbladder, Joint Replacement, Orthopedic Respiratory: No Currently Using CPAP: No Currently Using BIPAP: No Cardiac: Yes Deep Vein Thrombosis, High Cholesterol, Hypertension Neurological: No Dementia Reproductive Disorders: No Genitourinary: Yes UTI-Chronic Gastrointestinal: No Musculoskeletal: Yes Degenerate Disk Disease, Osteoporosis, Arthritis, Fractures Endocrine: No HEENT: Yes Cataract Loss of Vision: Denies Hearing Impairment: Bilateral Hearing Aide Cancer: No Psychosocial: Yes Anxiety, Depression Integumentary: No Blood Disorders: No Adverse Reaction/Blood Tranf: No Family Medical History Reviewed Nursing Family Hx Myocardial infarction 19 MOTHER, Onset:60 years & older Heart Disease, Hypertension Physical Exam Vital Signs Vital Signs - First Documented 11/15/18 09:27 Temp 97.7 Pulse 67 Resp 20 B/P (MAP) 152/72 (98) Pulse Ox 97 Capillary Refill : Less Than 3 Seconds Height/Weight/BMI Height: 5'6.00" Weight: 134lbs. 0.0oz. 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.) Back: normal inspection, no CVA tenderness, no vertebral tenderness Neurologic/Psychiatric: alert, oriented x 3 Skin: normal color, warm/dry Progress/Results/Core Measures Results/Orders Lab Results Laboratory Tests Test 11/15/18 09:55 Range/Units White Blood Count 9.1 4.3-11.0 10^3/uL Red Blood Count 4.60 4.35-5.85 10^6/uL Hemoglobin 12.7 11.5-16.0 G/DL Hematocrit 41 35-52 % Mean Corpuscular Volume 89 80-99 FL Mean Corpuscular Hemoglobin 28 25-34 PG Mean Corpuscular Hemoglobin Concent 31 L 32-36 G/DL Red Cell Distribution Width 15.6 H 10.0-14.5 % Platelet Count 114 L 130-400 10^3/uL Mean Platelet Volume 10.3 7.4-10.4 FL Neutrophils (%) (Auto) 72 42-75 % Lymphocytes (%) (Auto) 15 12-44 % Monocytes (%) (Auto) 9 0-12 % Eosinophils (%) (Auto) 3 0-10 % Basophils (%) (Auto) 0 0-10 % Neutrophils # (Auto) 6.6 1.8-7.8 X 10^3 Lymphocytes # (Auto) 1.4 1.0-4.0 X 10^3 Monocytes # (Auto) 0.8 0.0-1.0 X 10^3 Eosinophils # (Auto) 0.3 0.0-0.3 10^3/uL Basophils # (Auto) 0.0 0.0-0.1 10^3/uL Sodium Level 140 135-145 MMOL/L Potassium Level 4.5 3.6-5.0 MMOL/L Chloride Level 102 98-107 MMOL/L Carbon Dioxide Level 29 21-32 MMOL/L Anion Gap 9 5-14 MMOL/L Blood Urea Nitrogen 12 7-18 MG/DL Creatinine 0.77 0.60-1.30 MG/DL Estimat Glomerular Filtration Rate > 60 BUN/Creatinine Ratio 16 Glucose Level 82 70-105 MG/DL Calcium Level 9.5 8.5-10.1 MG/DL Corrected Calcium 10.4 H 8.5-10.1 MG/DL Total Bilirubin 0.4 0.1-1.0 MG/DL Aspartate Amino Transf (AST/SGOT) 16 5-34 U/L Alanine Aminotransferase (ALT/SGPT) 6 0-55 U/L Alkaline Phosphatase 68 40-136 U/L C-Reactive Protein High Sensitivity 0.43 0.00-0.50 MG/DL Total Protein 5.8 L 6.4-8.2 GM/DL Albumin 2.9 L 3.2-4.5 GM/DL My Orders Orders - JERSON BOWLES MD Cbc With Automated Diff (11/15/18 09:25) Comprehensive Metabolic Panel (11/15/18 09:25) Hs C Reactive Protein (11/15/18 09:25) Stool Culture (11/15/18 09:25) C Difficile Ag + Toxin A/B. (11/15/18 09:25) Non-Formulary Medication (Non-Formulary (11/15/18 10:59) Gerard Syrup (Gerard Syrup) 60 Ml, Vanco (11/15/18 12:00) Vital Signs/I&O 11/15/18 09:27 Temp 97.7 Pulse 67 Resp 20 B/P (MAP) 152/72 (98) Pulse Ox 97 Blood Pressure Mean: 98 Progress Progress Note : Progress Note Seen and evaluated. We will try to capture labs as well as a stool sample for C. difficile. Monitor patient. 1100: Patient is able to give stool sample. Labs look good overall. I do have significant concerns for C. difficile infection. I did discuss the case with Dr. See. We will go ahead and initiate vancomycin therapy and I have asked the pharmacist to prepare home pack for that per guidance from Dr. See. We will also initiate Questran treatment at home 3 times a day. I will send a copy of the chart to Dr. Davenport for continued follow-up. Family appreciative and in agreement with plan. Departure Impression Primary Impression: Clostridioides difficile infection Disposition: HOME, SELF-CARE Condition: Stable Departure-Patient Inst. Decision time for Depature: 11:11 Referrals: SHELLIE DAVENPORT MD (PCP/Family) Primary Care Physician Patient Instructions: Clostridium difficile (DC) Add. Discharge Instructions: All discharge instructions reviewed with patient and/or family. Voiced understanding. Take medications as directed. Follow-up with Dr. Davenport next week for recheck and further evaluation. Encourage plenty of fluids. Diet as discussed. Return for worse pain, fever, vomiting, weakness, breathing problems or other concerns as needed. Scripts Cholestyramine (with Sugar) (Cholestyramine Packet) 4 Gm Powd.pack 4 GM PO TID, #30 EACH 1 Refill Prov: JERSON BOWLES MD 11/15/18 Copy Copies To 1: SHELLIE DAVENPORT MD, TIMOTHY D MD Nov 15, 2018 09:43
--- OUTSIDE RECORDS SUMMARY | 2018-11-15 09:45 | XMS REPORT | Continuity of Care Document ---
Demographics Preferred Language Unknown Marital Status Unknown Samaritan Affiliation Unknown Race Unknown Ethnic Group Unknown Author Organization Unknown Address Unknown Allergies Active Description Code Type Severity Reaction Onset Reported/Identified Relationship to Patient Clinical Status Yes PENICILLINS UNKNOWN UNKNOWN Yes Penicillins [id number] Drug Allergy Severe EDEMA 04/13/2018 Medications Medication [...] Ot D64.9 ANEMIA, UNSPECIFIED 10/30/2016 GEORGE TEIXEIRA WAREHOUSE CHECKER Ot D72.819 DECREASED WHITE BLOOD CELL COUNT, UNSPEC 11/23/2016 GEORGE TEIXEIRA WAREHOUSE CHECKER Ot D64.9 ANEMIA, UNSPECIFIED 11/23/2016 GEORGE TEIXEIRA WAREHOUSE CHECKER Ot D72.819 DECREASED WHITE BLOOD CELL COUNT, [...] SHELLIE OLIVIER MD Ot Y92.000 [facility] OF [facility] NON-INSTITUT (PRIVATE) R 08/13/2017 SHELLIE OLIVIER MD Ot Y92.003 [facility] NON[facility]INSTIT[facility] (PRIVATE) R 08/13/2017 SHELLIE OLIVIER MD [...] SHELLIE OLIVIER MD Ot Y92.000 [facility] NON[facility] (PRIVATE) R 08/13/2017 SHELLIE OLIVIER MD Ot Y92.003 [facility] OF [facility] (PRIVATE) R 08/13/2017 SHELLIE OLIVIER MD [...] MD Ot Z23 ENCOUNTER FOR IMMUNIZATION 04/17/2018 SHELLIE OLIVIER MD Ot Z66 DO NOT [...] AND URETHRITIS 09/01/2018 SHELLIE OLIVIER MD Ot B37.7 CANDIDAL SEPSIS 09/01/2018 SHELLIE OLIVIER MD Ot E78.00 PURE [...] MD Ot R53.1 WEAKNESS 09/01/2018 SHELLIE OLIVIER MD Ot R54 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 09/01/2018 SHELLIE OLIVIER MD Ot Z66 DO NOT RESUSCITATE 09/01/2018 SHELLIE OLIVIER MD Ot Z86.718 PERSONAL HISTORY OF OTHER VENOUS THROMBO 09/01/2018 SHELLIE OLIVIER MD Ot Z87.891 PERSONAL HISTORY OF NICOTINE DEPENDENCE 09/01/2018 SHELLIE OLIVIER MD Ot Z97.4 PRESENCE OF EXTERNAL HEARING-AID 09/01/2018 SHELLIE OLIVIER MD Ot Z99.3 DEPENDENCE ON WHEELCHAIR 09/19/2018 PRIETO, JAE WAREHOUSE CHECKER Ot E78.00 PURE HYPERCHOLESTEROLEMIA, UNSPECIFIED 09/19/2018 PRIETO, JAE WAREHOUSE CHECKER Ot F03.90 UNSPECIFIED DEMENTIA WITHOUT BEHAVIORAL 09/19/2018 PRIETO, JAE WAREHOUSE CHECKER Ot F32.9 MAJOR DEPRESSIVE DISORDER, SINGLE EPISOD 09/19/2018 PRIETO, JAE WAREHOUSE CHECKER Ot F41.9 ANXIETY DISORDER, UNSPECIFIED 09/19/2018 PRIETO, JAE WAREHOUSE CHECKER Ot I10 ESSENTIAL (PRIMARY) HYPERTENSION 09/19/2018 PRIETO, JAE WAREHOUSE CHECKER Ot 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4 OTHER AND UNSPECIFIED HYPERLIPIDEMIA 09/22/2018 Nelson Curry W 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, UNCOMPLICATED 09/22/2018 Nelson Curry W 348.31 METABOLIC ENCEPHALOPATHY 09/22/2018 Nelson Curry W 401.0 MALIGNANT ESSENTIAL HYPERTENSION 09/22/2018 Nelson Curry W 599.0 URINARY TRACT INFECTION, SITE NOT SPECIFIED 09/22/2018 Nelson Curry W 780.79 OTHER MALAISE AND FATIGUE 09/22/2018 Nelson Curry W 780.97 ALTERED MENTAL STATUS 09/22/2018 Nelson Curry W 799.02 HYPOXEMIA 09/22/2018 Nelson Curry W E78.5 HYPERLIPIDEMIA, UNSPECIFIED 09/22/2018 Nelson Curry W F03.90 UNSPECIFIED DEMENTIA WITHOUT BEHAVIORAL DISTURBANCE 09/22/2018 Nelson Curry W G93.41 METABOLIC ENCEPHALOPATHY 09/22/2018 Nelson Curry W I10 ESSENTIAL (PRIMARY) HYPERTENSION 09/22/2018 Nelson Curry W N39.0 URINARY TRACT INFECTION, SITE NOT SPECIFIED 09/22/2018 Nelson Curry W R09.02 HYPOXEMIA 09/22/2018 Nelson Curry W R41.82 ALTERED MENTAL STATUS, UNSPECIFIED 09/22/2018 Nelson Curry W R53.81 OTHER MALAISE 09/22/2018 Nelson Curry W V12.51 PERSONAL HISTORY OF VENOUS THROMBOSIS AND EMBOLISM 09/22/2018 Nelson Curry W Z86.718 PERSONAL HISTORY OF OTHER VENOUS THROMBOSIS AND EMBOLISM 09/24/2018 JAE MOREAUP Ot E78.00 PURE HYPERCHOLESTEROLEMIA, UNSPECIFIED 09/24/2018 JAE MOREAUP Ot F03.90 UNSPECIFIED DEMENTIA WITHOUT BEHAVIORAL 09/24/2018 JAE MOREAUP Ot F32.9 MAJOR DEPRESSIVE DISORDER, SINGLE EPISOD 09/24/2018 JAE MOREAUP Ot F41.9 ANXIETY DISORDER, UNSPECIFIED 09/24/2018 PRIETO, JAE WAREHOUSE CHECKER Ot I10 ESSENTIAL (PRIMARY) HYPERTENSION 09/24/2018 PRIETO, JAE WAREHOUSE CHECKER Ot 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 09/24/2018 PRIETO, JAE WAREHOUSE CHECKER Ot N39.0 URINARY TRACT INFECTION, SITE NOT SPECIF 09/24/2018 PRIETO, JAE WAREHOUSE CHECKER Ot R41.82 ALTERED MENTAL STATUS, UNSPECIFIED 09/24/2018 PRIETO, JAE WAREHOUSE CHECKER Ot Z82.49 FAMILY HX OF ISCHEM HEART DIS AND OTH DI 09/24/2018 PRIETO, JAE WAREHOUSE CHECKER Ot Z86.718 PERSONAL HISTORY OF OTHER VENOUS THROMBO 09/24/2018 PRIETO, JAE WAREHOUSE CHECKER Ot Z87.440 PERSONAL HISTORY OF URINARY (TRACT) INFE 09/24/2018 PRIETO, JAE WAREHOUSE CHECKER Ot Z88.0 ALLERGY STATUS TO PENICILLIN 09/24/2018 PRIETO, JAE WAREHOUSE CHECKER Ot Z98.890 OTHER SPECIFIED POSTPROCEDURAL STATES 09/27/2018 PRIETO, JAE WAREHOUSE CHECKER Ot E78.00 PURE HYPERCHOLESTEROLEMIA, UNSPECIFIED 09/27/2018 PRIETO, JAE WAREHOUSE CHECKER Ot F03.90 UNSPECIFIED DEMENTIA WITHOUT BEHAVIORAL 09/27/2018 PRIETO, JAE WAREHOUSE CHECKER Ot F32.9 MAJOR DEPRESSIVE DISORDER, SINGLE EPISOD 09/27/2018 PRIETO, JAE WAREHOUSE CHECKER Ot F41.9 ANXIETY DISORDER, UNSPECIFIED 09/27/2018 PRIETO, JAE WAREHOUSE CHECKER Ot I10 ESSENTIAL (PRIMARY) HYPERTENSION 09/27/2018 PRIETO, JAE WAREHOUSE CHECKER Ot 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 09/27/2018 PRIETO, JAE WAREHOUSE CHECKER Ot N39.0 URINARY TRACT INFECTION, SITE NOT SPECIF 09/27/2018 PRIETO, JAE WAREHOUSE CHECKER Ot R41.82 ALTERED MENTAL STATUS, UNSPECIFIED 09/27/2018 PRIETO, JAE WAREHOUSE CHECKER Ot Z82.49 FAMILY HX OF ISCHEM HEART DIS AND OTH DI 09/27/2018 PRIETO, JAE WAREHOUSE CHECKER Ot Z86.718 PERSONAL HISTORY OF OTHER VENOUS THROMBO 09/27/2018 PRIETO, JAE WAREHOUSE CHECKER Ot Z87.440 PERSONAL HISTORY OF URINARY (TRACT) INFE 09/27/2018 PRIETO, JAE WAREHOUSE CHECKER Ot Z88.0 ALLERGY STATUS TO PENICILLIN 09/27/2018 PRIETO, JAE WAREHOUSE CHECKER Ot Z98.890 OTHER SPECIFIED POSTPROCEDURAL STATES 10/11/2018 ARIELA WALLS APRN Ot E78.00 PURE HYPERCHOLESTEROLEMIA, UNSPECIFIED 10/11/2018 ARIELA WALLS APRN Ot F03.90 UNSPECIFIED DEMENTIA WITHOUT BEHAVIORAL 10/11/2018 ARIELA WALLS APRN Ot F32.9 MAJOR DEPRESSIVE DISORDER, SINGLE EPISOD 10/11/2018 ARIELA WALLS APRN Ot F41.9 ANXIETY DISORDER, UNSPECIFIED 10/11/2018 ARIELA WALLS APRN Ot I10 ESSENTIAL (PRIMARY) HYPERTENSION 10/11/2018 ARIELA WALLS APRN Ot N39.0 URINARY TRACT INFECTION, SITE NOT SPECIF 10/11/2018 ARIELA WALLS APRN Ot R41.0 DISORIENTATION, UNSPECIFIED 10/11/2018 ARIELA WALLS APRN Ot R41.82 ALTERED MENTAL STATUS, UNSPECIFIED 10/11/2018 ARIELA WALLS APRN Ot Z82.49 FAMILY HX OF ISCHEM HEART DIS AND OTH DI 10/11/2018 ARIELA WALLS APRN Ot Z86.718 PERSONAL HISTORY OF OTHER VENOUS THROMBO 10/11/2018 ARIELA WALLS APRN Ot Z88.0 ALLERGY STATUS TO PENICILLIN 10/14/2018 ARIELA WALLS APRN Ot E78.00 PURE HYPERCHOLESTEROLEMIA, UNSPECIFIED 10/14/2018 ARIELA WALLS APRN Ot F03.90 UNSPECIFIED DEMENTIA WITHOUT BEHAVIORAL 10/14/2018 ARIELA WALLS APRN Ot F32.9 MAJOR DEPRESSIVE DISORDER, SINGLE EPISOD 10/14/2018 ARIELA WALLS APRN Ot F41.9 ANXIETY DISORDER, UNSPECIFIED 10/14/2018 ARIELA WALLS APRN Ot I10 ESSENTIAL (PRIMARY) HYPERTENSION 10/14/2018 ARIELA WALLS APRN Ot N39.0 URINARY TRACT INFECTION, SITE NOT SPECIF 10/14/2018 ARIELA WALLS APRN Ot R41.0 DISORIENTATION, UNSPECIFIED 10/14/2018 ARIELA WALLS AGING ROOM OPERATOR Ot R41.82 ALTERED MENTAL STATUS, UNSPECIFIED 10/14/2018 ARIELA WALLS AGING ROOM OPERATOR Ot Z82.49 FAMILY HX OF ISCHEM HEART DIS AND OTH DI 10/14/2018 ARIELA WALLS APRN Ot Z86.718 PERSONAL HISTORY OF OTHER VENOUS THROMBO 10/14/2018 ARIELA WALLS AGING ROOM OPERATOR Ot Z88.0 ALLERGY STATUS TO PENICILLIN Procedures Code Description Performed By Performed On 79.15 CLOSED RED-INT FIX FEMUR 01/16/2013 [id number] INSERTION OF INFUSION DEV INTO SUP VENA [...] FOR INFLUENZA A AND B ANTIGENS BY [facility] Comprehensive metabolic panel - 08/08/17 22:35 Serum [...] culture - 04/13/18 06:45 Bacterial blood culture NG NRG Complete blood [...] NRG Serum or plasma glucose measurement (mass/volume) 89 [...] INFLUENZA A AND B ANTIGENS BY IA [facility] Automated blood complete blood count [...] NRG Blood band neutrophils/100 leukocytes 0 % NRG Manual blood lymphocytes/100 leukocytes 8 % NRG Manual eosinophils/100 leukocytes in nose 0 % NRG Manual blood basophils/100 leukocytes 1 % NRG Blood erythrocyte morphology finding identification NORMAL NR Comprehensive metabolic panel - 08/29/18 12:36 Serum [...] culture - 08/29/18 12:36 Bacterial blood culture NG [facility] Complete blood count (CBC) with [...] 0.3 mg/dL 0.2-1.2 TP 5.6 g/dL 6.0-8.3 Complete blood count (CBC) with automated white blood cell (WBC) differential - 10/11/18 17:02 Blood leukocytes automated count (number/volume) 8.0 10*3/uL 4.3-11.0 Blood erythrocytes automated count (number/volume) 4.90 10*6/uL 4.35-5.85 Venous blood hemoglobin measurement (mass/volume) 14.0 g/dL 11.5-16.0 Blood hematocrit (volume fraction) 43 % 35-52 Automated erythrocyte mean corpuscular volume 87 [foz_us] 80-99 Automated erythrocyte mean corpuscular hemoglobin (mass per erythrocyte) 29 pg 25-34 Automated erythrocyte mean corpuscular hemoglobin concentration measurement (mass/volume) 33 g/dL 32-36 Automated erythrocyte distribution width ratio 14.9 % 10.0- 14.5 Automated blood platelet count (count/volume) 261 10*3/uL 130-400 Automated blood platelet mean volume measurement 10.1 [foz_us] 7.4-10.4 Automated blood neutrophils/100 leukocytes 61 % 42-75 Automated blood lymphocytes/100 leukocytes 25 % 12-44 Blood monocytes/100 leukocytes 10 % 0-12 Automated blood eosinophils/100 leukocytes 3 % 0-10 Automated blood basophils/100 leukocytes 0 % 0-10 Blood neutrophils automated count (number/volume) 4.9 10*3 1.8-7.8 Blood lymphocytes automated count (number/volume) 2.0 10*3 1.0-4.0 Blood monocytes automated count (number/volume) 0.8 10*3 0.0- 1.0 Automated eosinophil count 0.3 10*3/uL 0.0-0.3 Automated blood basophil count (count/volume) 0.0 10*3/uL 0.0-0.1 Comprehensive metabolic panel - 10/11/18 17:02 Serum or plasma sodium measurement (moles/volume) 134 mmol/L 135-145 Serum or plasma potassium measurement (moles/volume) 4.5 mmol/L 3.6-5.0 Serum or plasma chloride measurement (moles/volume) 99 mmol/L 98-107 Carbon dioxide 25 mmol/L 21-32 Serum or plasma anion gap determination (moles/volume) 10 mmol/L 5-14 Serum or plasma urea nitrogen measurement (mass/volume) 12 mg/dL 7-18 Serum or plasma creatinine measurement (mass/volume) 0.84 mg/dL 0.60-1.30 Serum or plasma urea nitrogen/creatinine mass ratio 14 NRG Serum or plasma creatinine measurement with calculation of estimated glomerular filtration rate > NRG Serum or plasma glucose measurement (mass/volume) 91 mg/dL 70-105 Serum or plasma calcium measurement (mass/volume) 10.2 mg/dL 8.5-10.1 Serum or plasma total bilirubin measurement (mass/volume) 0.4 mg/dL 0.1-1.0 Serum or plasma alkaline phosphatase measurement (enzymatic activity/volume) 63 U/L 40-136 Serum or plasma aspartate aminotransferase measurement (enzymatic activity/volume) 17 U/L 5-34 Serum or plasma alanine aminotransferase measurement (enzymatic activity/volume) 10 U/L 0-55 Serum or plasma protein measurement (mass/volume) 7.1 g/dL 6.4-8.2 Serum or plasma albumin measurement (mass/volume) 3.7 g/dL 3.2-4.5 CALCIUM CORRECTED 10.4 mg/dL 8.5-10.1 Complete urinalysis with reflex to culture - 10/11/18 17:33 Urine color determination YELLOW NRG Urine clarity determination VERY CLOUDY NRG Urine pH measurement by test strip 7 5-9 Specific gravity of urine by test strip 1.010 1.016-1.022 Urine protein assay by test strip, [...] urine sediment by light microscopy MODERATE NRG Squamous epithelial cells detection in urine sediment by light microscopy RARE NRG Crystals detection in urine sediment by light microscopy PRESENT NRG Casts detection in urine sediment by light microscopy NONE NRG Mucus detection in urine sediment by light microscopy NEGATIVE NRG Complete urinalysis with reflex to culture YES NRG Yeast detection in urine sediment by light microscopy MODERATE NRG Amorphous sediment detection in urine sediment by light microscopy MOD ORA PHOSPHATE NRG Bacterial urine culture - 10/11/18 17:33 Bacterial urine culture [id number] NRG COLONY COUNT 50,000 CFU/ML NRG FTX;REPORTABLE AMENDED REPORT SENT 10/13/18 13:05 NRG Encounters ACCT No. Visit Date/Time Discharge Status Pt. Type Provider Facility Loc./Unit Complaint [id number] 09/19/2018 18:37:00 Document Registration [id number] 09/19/2018 17:23:00 09/22/2018 12:00:00 DIS Inpatient Curry Nelson [facility] ICU [id number] 09/19/2018 17:48:38 Document Registration [id number] 10/11/2018 16:55:00 10/11/2018 19:10:00 DIS Emergency ARIELA WALLS APRN [facility] ER CONFUSION [id number] 09/19/2018 14:50:00 09/19/2018 18:07:00 DIS Emergency JAE MOREAU [facility] ER FEVER;AMS [id number] 08/29/2018 13:55:00 09/01/2018 10:50:00 DIS Inpatient SHELLIE OLIVIER MD [facility] 4TH ANXIETY,UTI,FEVER [id number] 04/13/2018 11:49:00 04/17/2018 16:55:00 DIS Outpatient SHELLIE OLIVIER MD [facility] 4TH UTI,SEPSIS [id number] 08/09/2017 00:01:00 08/13/2017 11:35:00 DIS Inpatient SHELLIE OLIVIER MD [facility] 4TH SEPSIS,FEVER,HYPOXIA,S/P FALL, R PELVIS FX,AMS [id number] 10/29/2016 08:14:00 10/29/2016 23:59:59 CLS Outpatient GEORGE TEIXEIRA [facility] LAB ELEVATED HCB LOW WBC [id number] 10/21/2015 09:11:00 10/24/2015 14:30:00 DIS Inpatient CURRYSHYANN DELGADILLO NELSON [facility] 4TH AMS [id number] 01/21/2015 15:19:00 01/21/2015 16:54:00 DIS Emergency JERSON BOWLES MD [facility] ER FALL/HEAD LAC [id number] 01/11/2015 12:43:00 01/21/2015 13:18:00 DIS Inpatient ARIAN SALINAS MD [facility] 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 [id number] 01/08/2015 08:50:00 01/11/2015 12:35:00 DIS Inpatient ARIAN SALINAS MD [facility] 4TH ALTERED MENTAL STATUS;UNCONTROLLED HTN;UTI;HYPOMAG [id number] 10/18/2014 08:24:00 10/18/2014 13:54:00 DIS Emergency AZALEA GANDHI MD [facility] ER CONFUSION [id number] 04/15/2014 15:50:00 04/16/2014 17:35:00 DIS Inpatient ARIAN SALINAS MD [facility] 4TH UTI [id number] 01/27/2014 14:23:00 01/29/2014 13:55:00 DIS Inpatient ARIAN SALINAS MD [facility] 4TH MARKED ELECTROLYTE ABNORMALITIES,AMS [id number] 05/27/2013 12:00:00 05/27/2013 23:59:59 CLS Outpatient ARIAN SALINAS MD [facility] HIP FX, COUMADIN THERAPY [id number] 04/28/2013 11:30:00 04/28/2013 23:59:59 CLS Outpatient ARIAN SALINAS MD [facility] ANTICOAG THERAPY [id number] 04/08/2013 14:48:00 04/08/2013 23:59:59 CLS Outpatient [id number] 03/18/2013 13:59:00 03/18/2013 23:59:59 CLS Outpatient [id number] 02/18/2013 13:42:00 02/18/2013 23:59:59 CLS Outpatient [id number] 01/14/2013 19:30:00 01/22/2013 16:00:00 DIS Inpatient MOSES MCKEON MD [facility] R HIP FX
[2018-11-15 10:02] LABS: BASOPHILS % (AUTO) 0 % (0-10); EOSINOPHILS # (AUTO) 0.3 10^3/uL (0.0-0.3); EOSINOPHILS % (AUTO) 3 % (0-10); HEMATOCRIT 41 % (35-52); HEMOGLOBIN 12.7 G/DL (11.5-16.0); LYMPHOCYTES # (AUTO) 1.4 X 10^3 (1.0-4.0); LYMPHOCYTES % (AUTO) 15 % (12-44); MEAN CORPUSCULAR HEMOGLOBIN 28 PG (25-34); MEAN CORPUSCULAR HGB CONC 31 G/DL (32-36); MEAN CORPUSCULAR VOLUME 89 FL (80-99); MEAN PLATELET VOLUME 10.3 FL (7.4-10.4); MONOCYTES # (AUTO) 0.8 X 10^3 (0.0-1.0); MONOCYTES % (AUTO) 9 % (0-12); NEUTROPHILS # (AUTO) 6.6 X 10^3 (1.8-7.8); NEUTROPHILS % (AUTO) 72 % (42-75); PLATELET COUNT 114 10^3/uL (130-400); RED CELL DISTRIBUTION WIDTH 15.6 % (10.0-14.5); WHITE BLOOD COUNT 9.1 10^3/uL (4.3-11.0)
--- NOTE | 2018-11-15 10:24 | NUR ---
PT DAUGHTER AT BEDSIDE AT THIS TIME.
[2018-11-15 10:25] LABS: ALANINE AMINOTRANSFERASE 6 U/L (0-55); ALBUMIN 2.9 GM/DL (3.2-4.5); ALKALINE PHOSPHATASE 68 U/L (40-136); BILIRUBIN,TOTAL 0.4 MG/DL (0.1-1.0); BUN/CREATININE RATIO 16; CALCIUM 9.5 MG/DL (8.5-10.1); CARBON DIOXIDE 29 MMOL/L (21-32); CHLORIDE 102 MMOL/L (98-107); CREATININE SERUM 0.77 MG/DL (0.60-1.30); GFR ESTIMATED > 60; GLUCOSE 82 MG/DL (70-105); POTASSIUM 4.5 MMOL/L (3.6-5.0); SODIUM 140 MMOL/L (135-145); TOTAL PROTEIN 5.8 GM/DL (6.4-8.2)
[2018-11-15] MEDS ORDERED: NON-FORMULARY MEDICATION 1 EA EA PO STA (10:59)
[2018-11-15] MEDS ORDERED: CHOL4PAC2 PO (11:14)
[2018-11-15 12:00] VITALS: BP 170/87
[2018-11-15] MEDS ORDERED: VANCOMYCIN ORAL 250 MG/5 ML 120 ML PO SCH ×2 (12:00)
== END 2018-11-15 12:00 | disposition home or self-care (01) ==
LOC: EDUNIT# 09:13 → ER 09:14
DX: B96.89 Other specified bacterial agents as the cause of diseases classified elsewhere (principal); I10 Essential (primary) hypertension; E78.00 Pure hypercholesterolemia, unspecified; F03.90 Unspecified dementia, unspecified severity, without behavioral disturbance, psychotic disturbance, mood disturbance, and anxiety; M81.0 Age-related osteoporosis without current pathological fracture; F41.9 Anxiety disorder, unspecified; F32.9 Major depressive disorder, single episode, unspecified; Z86.718 Personal history of other venous thrombosis and embolism; Z87.440 Personal history of urinary (tract) infections; Z88.0 Allergy status to penicillin; Z82.49 Family history of ischemic heart disease and other diseases of the circulatory system
CPT/HCPCS: 36415; 80053; 85025; 86141; 87015; 87045; 87046; 87324; 87449; 87899; 99283

== ENCOUNTER 2018-11-21 11:54 | Inpatient (IN) | payer MEDICARE ==
[~2018-11-21] VITALS: Ht 167.6 cm; Wt 59.9 kg
[~2018-11-21 11:54] MED LIST changes: +CHOL4PAC2 PO; -VANCOMYCIN ORAL SUSPENSION 60 ML BOTTLE PO SCH
[2018-11-21 12:00] VITALS: BP 180/82
[2018-11-21 12:28] LABS: BASOPHILS % (AUTO) 0 % (0-10); EOSINOPHILS # (AUTO) 0.1 10^3/uL (0.0-0.3); EOSINOPHILS % (AUTO) 1 % (0-10); HEMATOCRIT 39 % (35-52); HEMOGLOBIN 12.3 G/DL (11.5-16.0); LYMPHOCYTES # (AUTO) 1.7 X 10^3 (1.0-4.0); LYMPHOCYTES % (AUTO) 16 % (12-44); MEAN CORPUSCULAR HEMOGLOBIN 28 PG (25-34); MEAN CORPUSCULAR HGB CONC 32 G/DL (32-36); MEAN CORPUSCULAR VOLUME 88 FL (80-99); MEAN PLATELET VOLUME 10.9 FL (7.4-10.4); MONOCYTES # (AUTO) 0.9 X 10^3 (0.0-1.0); MONOCYTES % (AUTO) 8 % (0-12); NEUTROPHILS # (AUTO) 7.7 X 10^3 (1.8-7.8); NEUTROPHILS % (AUTO) 74 % (42-75); PLATELET COUNT 274 10^3/uL (130-400); RED CELL DISTRIBUTION WIDTH 15.7 % (10.0-14.5); WHITE BLOOD COUNT 10.3 10^3/uL (4.3-11.0)
[2018-11-21 12:54] LABS: BILIRUBIN,URINE NEGATIVE (NEGATIVE); CLARITY,URINE SLIGHTLY CLOUDY; COLOR,URINE YELLOW; GLUCOSE, URINE (UA) NEGATIVE (NEGATIVE); KETONES,URINE NEGATIVE (NEGATIVE); LEUKOCYTE ESTERASE ,URINE 3+ (NEGATIVE); NITRITE,URINE NEGATIVE (NEGATIVE); PH,URINE 6 (5-9); PROTEIN,URINE 2+ (NEGATIVE); UROBILINOGEN,URINE NORMAL (NORMAL)
[2018-11-21 13:00] LABS: BACTERIA,URINE TRACE /HPF; WBC,URINE 50-100 /HPF
[2018-11-21 13:01] LABS: SQUAMOUS EPITHELIAL CELL,UR RARE /HPF
[2018-11-21] MEDS ORDERED: cefTRIAXone FOR IV USE 1,000 MG in WATER (STERILE) FOR INJECTION 10 ML IV ONE (13:15)
[2018-11-21 13:17] LABS: ALANINE AMINOTRANSFERASE < 6 U/L (0-55); ALBUMIN 2.8 GM/DL (3.2-4.5); ALKALINE PHOSPHATASE 61 U/L (40-136); BILIRUBIN,TOTAL 0.2 MG/DL (0.1-1.0); BUN/CREATININE RATIO 14; CALCIUM 9.2 MG/DL (8.5-10.1); CARBON DIOXIDE 25 MMOL/L (21-32); CHLORIDE 105 MMOL/L (98-107); CREATININE SERUM 0.69 MG/DL (0.60-1.30); GFR ESTIMATED > 60; GLUCOSE 97 MG/DL (70-105); MAGNESIUM 1.2 MG/DL (1.8-2.4); POTASSIUM 3.8 MMOL/L (3.6-5.0); SODIUM 139 MMOL/L (135-145); TOTAL PROTEIN 5.5 GM/DL (6.4-8.2)
[2018-11-21] MEDS ORDERED: MAGNESIUM 1 GM/100 ML IVPB 100 ML IV ONE (15:00)
--- NOTE | 2018-11-21 15:53 | ED General ---
General Chief Complaint: Altered Mental Status Stated Complaint: CONFUSED/COMBATIVE Nursing Triage Note: Family advises that the patient has been experiencing severe confusion and has been belligerent x 2 days and it is becoming progressively worse. Patient has a previous hx. of UTI. Nursing Sepsis Screen: No Definite Risk Exam Limitations: No Limitations History of Present Illness Date Seen by Provider: Nov 21, 2018 Time Seen by Provider: 12:01 Initial Comments This 88-year-old woman presents to the emergency room accompanied by her family with concerns about confusion and verbally belligerent behavior. She is using profanity that she normally does not use and is acting very paranoid about her family. Family states this is unusual behavior for her but they have seen it in the past with urinary tract infection. Patient is also currently being treated for C. difficile. She had a negative C. difficile study performed in this ER on November 15. Patient is non-ambulatory but threatens to get out of bed. Family is concerned that she will fall. Patient adamantly states that her family is a bunch of liners and cannot be trusted. Family reports she has had a history of urinary tract infections in the past. Review of recent urine cultures shows a prevalence of yeast. Patient is also hypertensive. Family reports lisinopril was discontinued during a recent admission at [place]. Allergies and Home Medications Allergies Coded Allergies: Penicillins (Unverified Allergy, Severe, EDEMA, 04/13/18) Home Medications Acetaminophen 500 Mg Tablet, 500 MG PO Q4H PRN for PAIN-MILD, (Reported) Amlodipine Besylate 10 Mg Tablet, 10 MG PO 0630, (Reported) Bisacodyl 5 Mg Tablet.dr, 5 MG PO DAILY PRN for CONSTIPATION-4TH LINE, (Reported) Cefdinir 300 Mg Capsule, 300 MG PO BID Prescribed by: ARIELA WALLS on 10/11/18 1845 Cholecalciferol (Vitamin D3) 1,000 Unit Capsule, 2,000 UNIT PO 1530, (Reported) TAKES 2 (1000 UNIT) CAPSULES Cholestyramine (with Sugar) 4 Gm Powd.pack, 4 GM PO TID Prescribed by: JERSON BOWLES on 11/15/18 1114 Citalopram Hydrobromide 40 Mg Tablet, 40 MG PO 1530, (Reported) Clonazepam 1 Mg Tablet, 2 MG PO 0630, (Reported) TAKES 2 (1MG) TABLETS Clonazepam 1 Mg Tablet, 1 MG PO 1530, (Reported) Cranberry Conc/Ascorbic Acid 1 Each Capsule, 2 CAP PO 1530, (Reported) Doxycycline Hyclate 100 Mg Tablet, 100 MG PO BID@07,17 Prescribed by: SHELLIE OLIVIER on 09/01/18 09 Lisinopril 10 Mg Tablet, 10 MG PO 0630, (Reported) Melatonin 5 Mg Capsule, 5 MG PO 1530, (Reported) Meloxicam 15 Mg Tablet, 15 MG PO 0630, (Reported) Metoprolol Succinate 25 Mg Tab.er.24h, 25 MG PO 0630, (Reported) Omeprazole 20 Mg Capsule.dr, 20 MG PO 0630, (Reported) Pediatric Multivitamin Comb#30 1 Each Tab.chew, 2 TAB.CHEW PO HS, (Reported) Potassium Chloride 10 Meq Tablet.er, 20 MEQ PO 0630, (Reported) TAKES 2 (10MEQ) TABLETS Risperidone 0.25 Mg Tablet, 0.25 MG PO evening Prescribed by: ARIELA WALLS on 10/11/18 185 Simvastatin 20 Mg Tablet, 20 MG PO 1530, (Reported) Patient Home Medication List Home Medication List Reviewed: Yes Review of Systems Review of Systems Constitutional: no symptoms reported EENTM: no symptoms reported Respiratory: no symptoms reported Cardiovascular: no symptoms reported Gastrointestinal: see HPI Genitourinary: see HPI : No Musculoskeletal: no symptoms reported Skin: no symptoms reported Psychiatric/Neurological: See HPI Hematologic/Lymphatic: No Symptoms Reported Immunological/Allergic: no symptoms reported Past Buflxgh-Sgvgsh-Mjsame Hx Past Med/Social Hx: Reviewed and Corrections made Patient Social History Alcohol Use: Denies Use Recreational Drug Use: No Smoking Status: Never a Smoker 2nd Hand Smoke Exposure: No Recent Foreign Travel: No Contact w/Someone Who Travel: No Recent Infectious Disease Expo: No Recent Hopitalizations: No Immunizations Up To Date Tetanus Booster (TDap): Unknown PED Vaccines UTD: No Date of Pneumonia Vaccine: Jan 27, 2014 Date of Influenza Vaccine: Jan 27, 2014 Seasonal Allergies Seasonal Allergies: No Past Medical History Surgeries: Yes Eye Surgery, Gallbladder, Joint Replacement, Orthopedic Respiratory: No Currently Using CPAP: No Currently Using BIPAP: No Cardiac: Yes Deep Vein Thrombosis, High Cholesterol, Hypertension Neurological: No Dementia Reproductive Disorders: No Genitourinary: Yes UTI-Chronic Gastrointestinal: Yes C-Diff Musculoskeletal: Yes Degenerate Disk Disease, Osteoporosis, Arthritis, Fractures Endocrine: No HEENT: Yes Cataract Loss of Vision: Denies Hearing Impairment: Bilateral Hearing Aide Cancer: No Psychosocial: Yes Anxiety, Depression Integumentary: No Blood Disorders: No Adverse Reaction/Blood Tranf: No Family Medical History Myocardial infarction 19 MOTHER, Onset:60 years & older Heart Disease, Hypertension Physical Exam Vital Signs Vital Signs - First Documented Capillary Refill : Less Than 3 Seconds Height, Weight, BMI Height: 5'6.00" Weight: 132lbs. 0.0oz. 59.037442kw; 21.6 BMI Method:Stated General Appearance: No Apparent Distress, WD/WN, Thin HEENT: PERRL/EOMI, Normal ENT Inspection Neck: Normal Inspection Respiratory: Lungs Clear, Normal Breath Sounds, No Accessory Muscle Use, No Respiratory Distress Cardiovascular: Regular Rate, Rhythm, No Edema, No Murmur Gastrointestinal: Normal Bowel Sounds, Non Tender, Soft Extremity: Normal Inspection, No Pedal Edema Neurologic/Psychiatric: Alert, No Motor/Sensory Deficits, nurse outreach case manager II-XII Norm as Tested, Other (disoriented to date, age, and place. Somewhat agitated.) Skin: Normal Color, Warm/Dry Progress/Results/Core Measures Suspected Sepsis Recent Fever Within 48 Hours: No Infection Criteria Present: Suspected New Infection New/Unexplained Altered Menta: Yes Sepsis Screen: No Definite Risk SIRS Temperature:98.7 Pulse: 76 Respiratory Rate: 18 Laboratory Tests 11/21/18 12:11: White Blood Count 10.3 Blood Pressure 180 /82 Mean: 114 Laboratory Tests 11/21/18 12:11: Platelet Count 274 11/21/18 12:50: Creatinine 0.69, Total Bilirubin 0.2 Results/Orders Lab Results Laboratory Tests Test 11/21/18 12:11 11/21/18 12:47 11/21/18 12:50 Range/Units White Blood Count 10.3 4.3-11.0 10^3/uL Red Blood Count 4.37 4.35-5.85 10^6/uL Hemoglobin 12.3 11.5-16.0 G/DL Hematocrit 39 35-52 % Mean Corpuscular Volume 88 80-99 FL Mean Corpuscular Hemoglobin 28 25-34 PG Mean Corpuscular Hemoglobin Concent 32 32-36 G/DL Red Cell Distribution Width 15.7 H 10.0-14.5 % Platelet Count 274 130-400 10^3/uL Mean Platelet Volume 10.9 H 7.4-10.4 FL Neutrophils (%) (Auto) 74 42-75 % Lymphocytes (%) (Auto) 16 12-44 % Monocytes (%) (Auto) 8 0-12 % Eosinophils (%) (Auto) 1 0-10 % Basophils (%) (Auto) 0 0-10 % Neutrophils # (Auto) 7.7 1.8-7.8 X 10^3 Lymphocytes # (Auto) 1.7 1.0-4.0 X 10^3 Monocytes # (Auto) 0.9 0.0-1.0 X 10^3 Eosinophils # (Auto) 0.1 0.0-0.3 10^3/uL Basophils # (Auto) 0.0 0.0-0.1 10^3/uL Urine Color YELLOW Urine Clarity SLIGHTLY CLOUDY Urine pH 6 5-9 Urine Specific [employer] 1.020 1.016-1.022 Urine Protein 2+ H NEGATIVE Urine Glucose (UA) NEGATIVE NEGATIVE Urine Ketones NEGATIVE NEGATIVE Urine Nitrite NEGATIVE NEGATIVE Urine Bilirubin NEGATIVE NEGATIVE Urine Urobilinogen NORMAL NORMAL MG/DL Urine Leukocyte Esterase 3+ H NEGATIVE Urine RBC (Auto) 4+ H NEGATIVE Urine RBC 2-5 H /HPF Urine WBC 50-100 H /HPF Urine Squamous Epithelial Cells RARE /HPF Urine Crystals NONE /LPF Urine Bacteria TRACE /HPF Urine Casts NONE /LPF Urine Mucus NEGATIVE /LPF Urine Culture Indicated YES Sodium Level 139 135-145 MMOL/L Potassium Level 3.8 3.6-5.0 MMOL/L Chloride Level 105 98-107 MMOL/L Carbon Dioxide Level 25 21-32 MMOL/L Anion Gap 9 5-14 MMOL/L Blood Urea Nitrogen 10 7-18 MG/DL Creatinine 0.69 0.60-1.30 MG/DL Estimat Glomerular Filtration Rate > 60 BUN/Creatinine Ratio 14 Glucose Level 97 70-105 MG/DL Calcium Level 9.2 8.5-10.1 MG/DL Corrected Calcium 10.2 H 8.5-10.1 MG/DL Magnesium Level 1.2 L 1.8-2.4 MG/DL Total Bilirubin 0.2 0.1-1.0 MG/DL Aspartate Amino Transf (AST/SGOT) 11 5-34 U/L Alanine Aminotransferase (ALT/SGPT) < 6 0-55 U/L Alkaline Phosphatase 61 40-136 U/L Total Protein 5.5 L 6.4-8.2 GM/DL Albumin 2.8 L 3.2-4.5 GM/DL My Orders Orders - AZALEA GANDHI MD Cbc With Automated Diff (11/21/18 12:11) Comprehensive Metabolic Panel (11/21/18 12:11) Magnesium (11/21/18 12:11) Ua Culture If Indicated (11/21/18 12:11) Ed Iv/Invasive Line Start (11/21/18 12:11) [facility]guire Cath (11/21/18 12:29) Urine Culture (11/21/18 12:47) Ceftriaxone For Iv Use (Rocephin For I (11/21/18 13:15) Magnesium 1 Gm/100 Ml Ivpb (Magnesium Miller (11/21/18 15:00) Chest 1 View, Ap/Pa Only (11/21/18 15:29) Amlodipine Tablet (Norvasc Tablet) (11/21/18 16:00) Heart Healthy (11/21/18 Dinner) Medications Given in ED Current Medications Medications Dose Ordered Sig/Lauren Route Start Time Stop Time Status Last Admin Dose Admin Ceftriaxone Sodium 1000 mg/ Sterile Water 10 ml @ 200 mls/hr ONCE ONCE IV 11/21/18 13:15 11/21/18 13:17 DC 11/21/18 13:21 200 MLS/HR Magnesium Sulfate/ Dextrose 100 ml @ 100 mls/hr ONCE ONCE IV 11/21/18 15:00 11/21/18 15:59 DC 11/21/18 15:08 100 MLS/HR Vital Signs/I&O 11/21/18 11/21/18 11/21/18 11/21/18 12:00 12:00 17:14 17:20 Temp 98.7 98.7 97.9 Pulse 76 74 87 64 Resp 18 14 14 20 B/P (MAP) 180/82 (114) 180/82 (114) 175/74 (107) 160/98 Pulse Ox 92 92 93 92 O2 Delivery Room Air Room Air Room Air Room Air 11/21/18 11/21/18 17:20 17:40 Temp 97.9 Pulse 64 Resp 20 B/P (MAP) 160/98 (118) Pulse Ox 92 92 O2 Delivery Room Air Room Air Capillary Refill : Less Than 3 Seconds Blood Pressure Mean: 114 Progress Note : Progress Note Patient was seen and evaluated. She was found to have a urinary tract infection and was treated with Rocephin. She was also found to have hypomagnesemia and magnesium replacement was started with a gram of magnesium by IV route in the ER. I had a long discussion with family about patient's safety at home. They have concerns about her trying to get out of bed. In fact, they even tried to barricaded her in her bed with chairs last night and attached bells to the chair so they could hear her if she moved them. Given the confusion, hypomagnesemia, and urinary tract infection in conjunction with family's concerns, admission was felt most appropriate. I discussed the case with Dr. See who agreed. She requested meropenem and Diflucan be given for the UTI. Patient had a yeast on multiple recent urine cultures which prompted the addition of Diflucan. Diagnostic Imaging Diagonstic Imaging: Xray Plain Films/CT/US/NM/MRI: chest Comments Chest x-ray viewed by me and report reviewed. See report below: NAME: RUFINO COHEN [facility] REC#: [id number] PT STATUS: ADM IN : 1930 PHYSICIAN: AZALEA GANDHI MD ADMIT DATE: 11/21/18 Signed Date of Exam: 11/21/18 CHEST 1 VIEW, AP/PA ONLY CLINICAL INDICATION: Patient with altered mental status. EXAM: Portable chest x-ray, semi-upright view. COMPARISONS: Portable chest x-ray dated 10/11/2018. CT scan of the chest, abdomen, and pelvis dated 08/08/2017. FINDINGS: Again seen opacity in the lower mediastinal region, which may be related to hiatal hernia. This is better seen on comparison CT scan dated 08/08/2017. There is cardiomegaly with no significant pulmonary vascular congestion. There is slightly increased linear-like consolidation involving the left lung base. There are increased lung markings throughout both lungs, which may be related to chronic lung changes. There is interval slight blunting of the left costophrenic angle region, which may be related to a small pleural effusion. There is no pneumothorax. There are degenerative spurs involving the thoracic spine. IMPRESSION: 1: There is interval slight blunting of the left costophrenic angle region, which may represent a small left pleural effusion. 2: There are slightly increased left lung base linear consolidation which may represent atelectasis. Superimposed infiltrate cannot be completely excluded. 3: Hiatal hernia. 4: Mild cardiomegaly with no significant pulmonary vascular congestion. Dictated by: Dictated on workstation # [id number] Dict: 11/21/18 1544 Trans: 11/21/18 1709 Interpreted by: ZAHIDA CASSIDY MD Electronically signed by: ZAHIDA CASSIDY MD 11/21/181708 Departure Impression Primary Impression: Confusion Additional Impressions: Acute urinary tract infection Hypomagnesemia Hypertension Qualified Codes: I10 - Essential (primary) hypertension Disposition: 01 HOME, SELF-CARE Condition: Improved Departure-Patient Inst. Referrals: SHELLIE OLIVIER MD (PCP/Family) Primary Care Physician Copy Copies To 1: SHELLIE OLIVIER MD, JOSHUA T MD Nov 21, 2018 15:53
[2018-11-21] MEDS ORDERED: amLODIPine 5 MG (NORVASC) TAB PO ONE (16:00)
[2018-11-21 17:20] VITALS: BP 160/98
--- NOTE | 2018-11-21 17:40 | NUR ---
RUFINO COHEN admitted to room 429-1, with an admitting diagnosis of CONFUSION, UTI, HYPOMAGNESIUM, HTN, on 11/21/18 from ER via [facility], accompanied by ER STAFF.COHENRUFINO introduced to surroundings, call light, bed controls, phone, TV, temperature control, lights, meal times, smoking policy, visitor policy, side rail policy, bathrooms and showers. Patient Rights given to patient in the handbook. NOELKAY verbalizes understanding that [facility] is not responsible for the loss or damage to any personal effects or valuables that are kept in the patients posession during their hospitalization. The following Patient Care Plans were discussed with the PT: Discharge Planning, INFECTION, PAIN, ALT URINARY ELIMINATION PATTERN, HIGH RISK INJURY. NOELRUFINO Smith verbalizes understanding of Interdisciplinary Patient Education. Patient and/or family were informed about the Rapid Response Team and its purpose. PT CAME TO FLOOR WITH [facility] IN L AC -- NOTE THAT ER ORDERS TO CONTINUE HOME ORAL VANCOMYCIN,-- NOTE IT WAS NOT LISTED ON HER HOME MEDS AND DUE TO PT'S CONFUSION UNABLE TO KNOW IF SHE IS TAKING IT OR NOT -- WHEN DAUGHTER WAS CALLED NO ANSWER AND UNABLE TO LEAVE MESSAGE
--- OUTSIDE RECORDS SUMMARY | 2018-11-21 17:45 | XMS REPORT | CCD ---
Author Author Morenita Don MD, [facility] Address [address] [place] [address] Phone Care Team Providers Care Erp Implementation Consultant Name Role Phone PP Unavailable CCM Unavailable Summary Purpose Interface Exchange Insurance Providers Payer name Policy type / Coverage type Covered alliance party ID Effective Begin Date Effective End Date [employer] Medicare Part B [id number] 2016 Unknown [employer] Medicare Part B [id number] Unknown Family history Father Diagnosis Age At Onset Myocardial infarction Unknown Mother Diagnosis Age At Onset Myocardial infarction Unknown Social History Social History Element Codes Description Effective Dates Marital status Unknown 11/29/2015 Number of children Unknown 2 son at 3hrs old 11/29/2015 Employment Unknown Retired 11/29/[address]: 834623053 Never smoker 11/29/[address]: 899188850 Never drinks alcohol 11/29/2015 Allergies, Adverse Reactions, [...] Start Date Stop Date Status Fill Instructions potassium chloride ER 10 mEq tablet,extended release RxNorm: 614752 TAKE 2 TABLETS BY MOUTH ONCE DAILY 11/17/2018 No Stop Date Active clonazepam 1 mg tablet RxNorm: 425959 1 Tablet(s) PO TID PRN 11/17/2018 02/14/2019 Active omeprazole 20 mg capsule,delayed release RxNorm: 714253 1 Capsule(s) PO daily TAKE ONE CAPSULE BY MOUTH ONCE DAILY 09/26/2018 03/24/2019 Active metoprolol succinate ER 25 mg tablet,extended release 24 hr RxNorm: 049710 1 Tablet(s) PO daily 09/26/2018 06/22/2019 Active Diflucan 150 mg tablet RxNorm: 057870 1 Tablet(s) PO QW 09/26/2018 10/25/2018 Inactive clonazepam 1 mg tablet RxNorm: 904016 1 Tablet(s) PO TID PRN 08/12/2018 11/09/2018 Inactive Mobic 15 mg tablet RxNorm: 109156 TAKE ONE TABLET BY MOUTH ONCE DAILY 08/11/2018 No Stop Date Active amlodipine 10 mg tablet RxNorm: 034742 TAKE ONE TABLET BY MOUTH ONCE DAILY 08/11/2018 09/25/2018 Inactive lisinopril 10 mg tablet RxNorm: 398871 TAKE ONE TABLET BY MOUTH ONCE DAILY 07/21/2018 09/25/2018 Inactive potassium chloride ER 10 mEq tablet,extended release RxNorm: 152792 TAKE TWO TABLETS BY MOUTH ONCE DAILY 07/01/2018 11/16/2018 Inactive simvastatin 20 mg tablet RxNorm: 997481 TAKE ONE TABLET BY MOUTH ONCE DAILY IN THE EVENING 06/17/2018 No Stop Date Active omeprazole 20 mg capsule,delayed release RxNorm: 581419 TAKE ONE CAPSULE BY MOUTH ONCE DAILY 06/09/2018 09/25/2018 Inactive Miralax 17 gram oral powder packet RxNorm: 034287 1 packet PO every other day 05/26/2018 No Stop Date Active clonazepam 1 mg tablet RxNorm: 916035 1 Tablet(s) PO TID PRN 05/26/2018 08/11/2018 Inactive melatonin 3 mg tablet RxNorm: 589221 1-2 Tablet(s) PO HS PRN 04/24/2018 No Stop Date Active citalopram 40 mg tablet RxNorm: 355305 1 Tablet(s) PO daily 04/24/2018 10/20/2018 Inactive clonazepam 1 mg tablet RxNorm: 688595 1 Tablet(s) PO TID 04/09/2018 08/11/2018 Inactive citalopram 20 mg tablet RxNorm: 394851 1 Tablet(s) PO daily 01/23/2018 04/23/2018 Inactive metoprolol succinate ER 25 mg tablet,extended release 24 hr RxNorm: 263714 1 Tablet(s) PO daily 01/20/2018 09/25/2018 Inactive citalopram 10 mg tablet RxNorm: 897954 1 Tablet(s) PO daily 12/31/2017 01/22/2018 Inactive clonazepam 1 mg tablet RxNorm: 875220 1 Tablet(s) PO TID 10/09/2017 05/25/2018 Inactive omeprazole 20 mg capsule,delayed release RxNorm: 891638 Capsule(s) TAKE 1 CAPSULE BY MOUTH EVERY DAY 06/03/2017 02/27/2018 Inactive Mobic 15 mg tablet RxNorm: 082866 Tablet(s) 1 TABLET(S) PO DAILY 06/03/2017 02/27/2018 Inactive amlodipine 10 mg tablet RxNorm: 971987 Tablet(s) TAKE 1 TABLET BY MOUTH EVERY DAY 06/03/2017 02/27/2018 Inactive metoprolol succinate ER 25 mg tablet,extended release 24 hr RxNorm: 627506 1 Tablet(s) PO daily 06/03/2017 01/19/2018 Inactive lisinopril 10 mg tablet RxNorm: 761651 Tablet(s) TAKE 1 TABLET BY MOUTH EVERY DAY 06/03/2017 02/27/2018 Inactive Lexapro 20 mg tablet RxNorm: 793709 1 Tablet(s) PO QPM 06/03/2017 12/30/2017 Inactive clonazepam 1 mg tablet RxNorm: 496330 1 Tablet(s) PO TID 06/03/2017 10/08/2017 Inactive potassium chloride ER 10 mEq tablet,extended release RxNorm: 890098 Tablet(s) TAKE 2 TABLETS BY MOUTH EVERY DAY 06/03/2017 02/27/2018 Inactive simvastatin 20 mg tablet RxNorm: 645614 Tablet(s) 1 TABLET(S) PO QPM 06/03/2017 02/27/2018 Inactive Mobic 15 mg tablet RxNorm: 331337 1 TABLET(S) PO DAILY 04/23/2017 06/02/2017 Inactive lisinopril 10 mg tablet RxNorm: 811815 TAKE 1 TABLET BY MOUTH EVERY DAY 04/05/2017 06/02/2017 Inactive metoprolol succinate ER 25 mg tablet,extended release 24 hr RxNorm: 293659 1 Tablet(s) PO daily 02/01/2017 06/02/2017 Inactive Lexapro 20 mg tablet RxNorm: 314422 1 Tablet(s) PO QPM TAKE 1 TABLET BY MOUTH EVERY EVENING 02/01/2017 02/01/2017 Inactive Lexapro 20 mg tablet RxNorm: 210452 1 Tablet(s) PO QPM 1 TABLET(S) PO QPM TAKE 1 TABLET BY MOUTH EVERY EVENING 02/01/2017 06/02/2017 Inactive Patient requests 90 days supply clonazepam 1 mg tablet RxNorm: 841275 1 Tablet(s) PO TID 02/01/2017 06/02/2017 Inactive Lexapro 20 mg tablet RxNorm: 856319 1 Tablet(s) PO QPM 1 TABLET(S) PO QPM TAKE 1 TABLET BY MOUTH EVERY EVENING 02/01/2017 01/31/2017 Inactive Patient requests 90 days supply metoprolol succinate ER 25 mg tablet,extended release 24 hr RxNorm: 595306 1 Tablet(s) PO daily 02/01/2017 01/31/2017 Inactive amlodipine 10 mg tablet RxNorm: 538668 TAKE 1 TABLET BY MOUTH EVERY DAY 01/15/2017 06/02/2017 Inactive potassium chloride ER 10 mEq tablet,extended release RxNorm: 983922 TAKE 2 TABLETS BY MOUTH EVERY DAY 12/04/2016 06/02/2017 Inactive Lexapro 20 mg tablet RxNorm: 086027 TAKE 1 TABLET BY MOUTH EVERY EVENING 11/12/2016 01/31/2017 Inactive omeprazole 20 mg capsule,delayed release RxNorm: 155435 TAKE 1 CAPSULE BY MOUTH EVERY DAY 10/29/2016 10/28/2016 Inactive omeprazole 20 mg capsule,delayed release RxNorm: 720326 TAKE 1 CAPSULE BY MOUTH EVERY DAY 10/29/2016 06/02/2017 Inactive L-Methylfolate 15 mg tablet RxNorm: 1 Tablet(s) PO daily 10/08/2016 01/31/2017 Inactive clonazepam 1 mg tablet RxNorm: 798955 1 Tablet(s) PO BID 08/31/2016 01/31/2017 Inactive L-Methylfolate 15 mg tablet RxNorm: 1 Tablet(s) PO daily 08/28/2016 10/07/2016 Inactive lisinopril 20 mg tablet RxNorm: 955375 1 Tablet(s) PO daily 08/21/2016 11/18/2016 Inactive lisinopril 20 mg tablet RxNorm: 853592 1 Tablet(s) PO daily 08/21/2016 11/18/2016 Inactive Deplin (algal oil) 15 mg-90.314 mg capsule RxNorm: 1 Capsule(s) PO daily 08/21/2016 08/27/2016 Inactive Lexapro 20 mg tablet RxNorm: 716728 1 TABLET(S) PO QPM 07/27/2016 12/30/2017 Inactive simvastatin 20 mg tablet RxNorm: 356240 1 TABLET(S) PO QPM 05/24/2016 11/19/2016 Inactive Patient requests 90 days supply simvastatin 20 mg tablet RxNorm: 461261 1 Tablet(s) PO QPM 05/23/2016 05/23/2016 Inactive Lexapro 20 mg tablet RxNorm: 478196 1 Tablet(s) PO QPM 02/28/2016 02/28/2016 Inactive Lexapro 20 mg tablet RxNorm: 235520 1 Tablet(s) PO QPM 1 TABLET(S) PO QPM 02/28/2016 12/30/2017 Inactive Patient requests 90 days supply tramadol 50 mg tablet RxNorm: 490328 1 Tablet(s) PO Q6 as needed for pain 02/27/2016 04/11/2016 Inactive potassium chloride ER 10 mEq tablet,extended release RxNorm: 398116 TAKE 2 TABLETS BY MOUTH EVERY DAY 02/27/2016 11/22/2016 Inactive citalopram 20 mg tablet RxNorm: 512517 1 Tablet(s) PO QAM 02/27/2016 02/27/2016 Inactive clonazepam 1 mg tablet RxNorm: 085733 1 Tablet(s) PO BID 02/27/2016 12/30/2017 Inactive omeprazole 20 mg capsule,delayed release RxNorm: 432595 TAKE 1 CAPSULE BY MOUTH EVERY DAY 02/13/2016 10/28/2016 Inactive Mobic 15 mg tablet RxNorm: 086560 1 Tablet(s) PO daily 02/10/2016 02/03/2017 Inactive Multiple Vitamins Daily tablet RxNorm: 1 Tablet(s) PO daily 11/29/2015 12/28/2015 Inactive amlodipine 10 mg tablet RxNorm: 406698 1 Tablet(s) PO daily 11/29/2015 12/30/2017 Inactive simvastatin 20 mg tablet RxNorm: 769194 1 Tablet(s) PO QPM 11/29/2015 12/28/2015 Inactive clonazepam 1 mg tablet RxNorm: 489843 1 Tablet(s) PO Q12H 11/29/2015 12/30/2017 Inactive Colace 100 mg capsule RxNorm: 4283012 1 Capsule(s) PO daily 11/29/2015 11/29/2015 Inactive citalopram 20 mg tablet RxNorm: 496340 1 Tablet(s) PO QAM 11/29/2015 12/28/2015 Inactive Mobic 15 mg tablet RxNorm: 095575 1 Tablet(s) PO daily 11/29/2015 12/30/2017 Inactive potassium chloride ER 10 mEq tablet,extended release RxNorm: 253732 2 Tablet(s) PO daily 20meq daily 11/29/2015 12/28/2015 Inactive lisinopril 10 mg tablet RxNorm: 832255 1 Tablet(s) PO daily 11/29/2015 12/30/2017 Inactive Coricidin HBP 10 mg-200 mg capsule RxNorm: 7074914 1 Capsule(s) PO PRN No Start Date Active cranberry 400 mg capsule RxNorm: 655391 1 Capsule(s) PO daily No Start Date Active Vitamin D3 1,000 unit tablet RxNorm: 034057 1 Tablet(s) PO daily No Start Date Active docusate sodium 100 mg tablet RxNorm: 5218067 1 Tablet(s) PO daily No Start Date Active Mobic 15 mg tablet RxNorm: 955880 1 Tablet(s) PO daily No Start Date 02/09/2016 Inactive Vitamin D3 1,000 unit tablet RxNorm: 811627 1 Tablet(s) PO daily No Start Date 06/02/2017 Inactive omeprazole 20 mg tablet,delayed release RxNorm: 862019 1 Tablet(s) PO daily No Start Date 06/02/2017 Inactive potassium chloride ER 10 mEq tablet,extended release RxNorm: 464540 2 Tablet(s) PO daily No Start Date 06/02/2017 Inactive clonazepam 1 mg tablet RxNorm: 064910 1 Tablet(s) PO BID No Start Date 02/26/2016 Inactive Aleve PM 220 mg-25 mg tablet RxNorm: 2523720 1 Tablet(s) PO daily No Start Date 05/27/2016 Inactive amlodipine 10 mg tablet RxNorm: 943351 1 Tablet(s) PO daily No Start Date 01/14/2017 Inactive lisinopril 10 mg tablet RxNorm: 736275 1 Tablet(s) PO daily No Start Date 08/20/2016 Inactive tramadol 50 mg tablet RxNorm: 662131 1 Tablet(s) PO Q6 PRN No Start Date 02/26/2016 Inactive Ultram 50 mg tablet RxNorm: 615794 1 Tablet(s) PO Q6 as needed No Start Date 11/28/2015 Inactive simvastatin 20 mg tablet RxNorm: 197677 1 Tablet(s) PO QHS No Start Date 06/02/2017 Inactive citalopram 20 mg tablet RxNorm: 004811 1 Tablet(s) PO daily No Start Date 02/26/2016 Inactive lisinopril 10 mg tablet RxNorm: 277787 1 Tablet(s) PO daily No Start Date 04/04/2017 Inactive omeprazole 20 mg capsule,delayed release RxNorm: 348694 1 Capsule(s) PO daily No Start Date [...] Ord30 C/HDL 2.8 Ratio 10/09/2016 Comp Metabolic Vyl159 NA 136 mEq/L 10/09/2016 Comp Metabolic Mbw843 K 4.9 mEq/L 10/09/2016 Comp Metabolic Xxt138 CL 97 mEq/L 10/09/2016 Comp Metabolic Bdp416 CO2 30.0 mEq/L 10/09/2016 Comp Metabolic Pap480 ANION GAP 14 10/09/2016 Comp Metabolic Fwk262 GLUCOSE 66 mg/dL 10/09/2016 Comp Metabolic Rhz699 Creat 0.9 mg/dL 10/09/2016 Comp Metabolic Xap968 eGFR 64 ml/min/1.73m2 10/09/2016 Comp Metabolic Lmw549 BUN 13 mg/dL 10/09/2016 Comp Metabolic Qwi430 B/C Ratio 14.6 Ratio 10/09/2016 Comp Metabolic Ysc477 CALCIUM 10.0 mg/dL 10/09/2016 Comp Metabolic Dvr034 ALK PHOS 59 U/L 10/09/2016 Comp Metabolic Nxc364 AST(SGOT) 20 U/L 10/09/2016 Comp Metabolic Uyd899 ALT(SGPT) 9 U/L 10/09/2016 Comp Metabolic Wro445 BILI T 0.4 mg/dL 10/09/2016 Comp Metabolic Mwr840 ALBUMIN 4.1 g/dL 10/09/2016 Comp Metabolic Dvr086 TPRO 7.1 g/dL 10/09/2016 Comp Metabolic Sck649 GLOB 3.0 g/dL 10/09/2016 Comp Metabolic Hkr316 A/G Ratio 1.4 Ratio 10/09/2016 Comp Metabolic Zzm107 Osmo 270 mOsmo 10/09/2016 Tsh Ord6 hTSH [...] 31.2 pg 10/09/2016 Cbc With Differential Ord2 Bell% 13.7 % 10/09/2016 Cbc With Differential Ord2 [...] 1.49 K/ul 10/09/2016 Cbc With Differential Ord2 Bell ABS# 0.6 K/ul 10/09/2016 Cbc With Differential [...] 05/26/2018 None Full Exam - General 1994 Lymphatic neck nodes Overall: anterior cervical chain benign 05/26/2018 None Full Exam - General 1994 Lymphatic [...] 1994 Ears/Nose/Throat lips/teeth/gingiva Teeth: wears dentures 12/31/2017 [facility] Full Exam - General 1994 Respiratory auscultation [...] 1994 Ears/Nose/Throat lips/teeth/gingiva Teeth: wears dentures 10/29/2017 [facility] Full Exam - General 1994 Respiratory respiratory effort/rhythm Overall: no retractions 10/29/2017 None Full Exam - General 1994 Respiratory respiratory effort/rhythm Overall: normal rate 10/29/2017 None Full Exam - General 1994 Cardiovascular extremities Overall: no clubbing 10/29/2017 None Full Exam - General 1995 Cardiovascular auscultation of heart Overall: regular rate 10/29/2017 None Full Exam - General 1995 Cardiovascular auscultation of heart Overall: normal heart sounds 10/29/2017 None Full Exam - General 1994 Cardiovascular auscultation of heart Systolic murmur: holosystolic 10/29/2017 None Full Exam - General 1995 Cardiovascular auscultation of heart Systolic murmur grade: II/ 10/29/2017 None Full Exam - General 1994 Abdomen abdominal exam Overall: no tenderness 10/29/2017 None Full Exam - General 1995 Lymphatic neck nodes Overall: anterior cervical chain benign 10/29/2017 None Full Exam - General 1995 Lymphatic neck nodes Overall: posterior cervical chain benign 10/29/2017 None Full Exam - General 1995 Musculoskeletal upper extremity Overall: upper arm non-tender, [...] 1994 Ears/Nose/Throat lips/teeth/gingiva Teeth: wears dentures 11/29/2015 [facility] Full Exam - General 1994 Eyes conjunctiva/eyelids [...] 1: 164/82 Code: 8480-6 BMI: 26.0 Code: 21427-1 Heart Rate 1: 120 bpm Height: 5'5" SpO2: 95% Weight: 156 lbs 08/21/2016 Blood Pressure 1: 166/80 Code: 8480-6 BMI: 25.8 Code: 77701-6 Heart Rate 1: 105 bpm Height: 5'5" SpO2: 95% Weight: 155 lbs 05/28/2016 Blood Pressure 1: 142/74 Code: 8480-6 BMI: 25.3 Code: 89803-8 Heart Rate 1: 104 bpm Height: 5'5" SpO2: 96% Weight: 152 lbs 02/28/2016 Blood Pressure 1: 130/70 Code: 8480-6 BMI: 26.0 Code: 14042-8 Heart Rate 1: 100 bpm Height: 5'5" SpO2: 96% Weight: 156 lbs 11/29/2015 Blood Pressure 1: 130/70 Code: 8480-6 BMI: 25.5 Code: 94407-5 Heart Rate 1: 86 bpm Height: 5'5" [...] data Encounters Encounter Performer Location Codes Date ([id number]) 21021 EST. PATIENT, LEVEL IV Diagnosis: Essential (primary) hypertension[ICD10: I10] Diagnosis: Generalized anxiety disorder[ICD10: F41.1] Diagnosis: Pneumonia, unspecified organism[ICD10: J18.9] Diagnosis: Urinary tract infection, site not specified[ICD10: N39.0] Morenita Davenport MD, [facility] CPT-4: 43397 09/26/2018 ([id number]) 87701 EST. PATIENT, LEVEL IV Diagnosis: Slow transit constipation[ICD10: K59.01] Diagnosis: Generalized anxiety disorder[ICD10: F41.1] Diagnosis: Essential (primary) hypertension[ICD10: I10] Morenita Davenport MD, [facility] CPT-4: 57024 05/26/2018 ([id number]) 88415 EST. PATIENT, LEVEL IV Diagnosis: Essential (primary) hypertension[ICD10: I10] Diagnosis: Generalized anxiety disorder[ICD10: F41.1] Diagnosis: Other insomnia[ICD10: G47.09] Morenita Davenport MD, [facility] CPT-4: 32106 04/24/2018 [id number]) 99731 EST. PATIENT, LEVEL IV Diagnosis: Essential (primary) hypertension[ICD10: I10] Diagnosis: Generalized anxiety disorder[ICD10: F41.1] Diagnosis: Major depressive disorder, recurrent, mild[ICD10: F33.0] Diagnosis: Unsteadiness on feet[ICD10: R26.81] Morenita Davenport MD, [facility] CPT-4: 43947 12/31/2017 [id number] EST. PATIENT, LEVEL IV Diagnosis: Essential (primary) hypertension[ICD10: I10] Diagnosis: Hypoxemia[ICD10: R09.02] Diagnosis: Sleep related hypoventilation in conditions classified elsewhere[ICD10: G47.36] Tia Davenport MD, [facility] CPT-4: 77916 10/29/2017 ([id number]) 46580 EST. PATIENT, LEVEL IV Diagnosis: Essential (primary) hypertension[ICD10: I10] Diagnosis: Generalized anxiety disorder[ICD10: F41.1] Diagnosis: Major depressive disorder, recurrent, mild[ICD10: F33.0] Morenita Davenport MD, [facility] CPT-4: 69755 02/01/2017 ([id number]) 76231 EST. PATIENT, LEVEL IV Diagnosis: Essential (primary) hypertension[ICD10: I10] Diagnosis: Generalized anxiety disorder[ICD10: F41.1] Diagnosis: Major depressive disorder, recurrent, mild[ICD10: F33.0] Morenita Davenport MD, [facility] CPT-4: 34383 08/21/2016 ([id number]) 41223 EST. PATIENT, LEVEL IV Diagnosis: Generalized anxiety disorder[ICD10: F41.1] Diagnosis: Essential (primary) hypertension[ICD10: I10] Diagnosis: Gastro-esophageal reflux disease without esophagitis[ICD10: K21.9] Morenita Davenport MD, [facility] CPT-4: 48630 05/28/2016 ([id number]) 61655 EST. 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 The pt has expected periods of exacerbation with abatement of the symptoms with change in situational exposure. No change in current medications. 09/26/2018 Appointment: Morenita Don WPtel: [facility] (15 min) Moderate 09/26/2018 Patient Education: Patient Medication Summary Completed 09/26/2018 Patient Education: Hypertension Completed 09/26/2018 Appointment: Morenita Don WPtel: [facility]5 [phone] (30 min) Complex 09/08/2018 Visit Plan: Constipation [...] at home. 05/26/2018 Appointment: Morenita Don WPtel: [facility]5 [phone] (15 min) Moderate 05/26/2018 Patient Education: Patient [...] as needed 04/24/2018 Appointment: Morenita Don WPtel: [facility]5 [phone] (30 min) Complex 04/24/2018 Patient Education: Patient Medication Summary Completed 04/24/2018 Patient Education: Hypertension Completed 04/24/2018 Appointment: Morenita Don WPtel: [facility]5 [phone] (30 min) Complex 04/17/2018 Appointment: Morenita Don WPtel: [address] [place], [place] [phone] (15 min) Moderate 04/04/2018 Appointment: Morenita Don WPtel: [address] [place], [place] [phone] (15 min) Moderate 03/06/2018 Appointment: Morenita Don WPtel: [address] [place], [place] [phone] (15 min) Moderate 01/31/2018 Visit Plan: Hypertension [...] verbalize understanding. 12/31/2017 Appointment: Morenita Don WPtel: [facility] (30 min) Complex 12/31/2017 Patient Education: Patient [...] Appointment: Tia Hernandez WPtel: [facility]9 [id number] (30 min) Complex 10/29/2017 Patient Education: Patient Medication Summary Completed 10/29/2017 Appointment: Moreniat Don WPtel: [facility]7 [phone] (30 min) Complex 08/20/2017 Visit Plan: Hypertension [...] pt is to call for acute concerns. Cfftxbt-lhthdqnxzc-rsdjymnoy patient get rid of house guest-he is taking advantage of her and causing her undue stress and worry. Increase clonazepam to TID prn-follow up in 2 weeks. 02/01/2017 Appointment: Morenita Don WPtel: [address] [phone] (15 min) Moderate 02/01/2017 Patient Education: Patient [...] pt is to call for acute concerns. Lvrcjcw-uwvnsginpu-lrf well controlled-add deplin-continue lexapro Patient has not had recent labs-will send orders for fasting labs 08/21/2016 Appointment: Morenita Don WPtel: [address] [phone] (15 min) Moderate 08/21/2016 Patient Education: Patient [...] any worse 05/28/2016 Appointment: Morenita Don WPtel: [address] [place], [place] [phone] [place] [address] (15 min) [facility] 05/28/2016 Patient Education: Patient Medication Summary Completed [...] Appointment: Morenita Don WPtel: [facility]5 [phone] (30 min) [facility] 02/28/2016 Patient Education: Patient Medication Summary Completed [...] medications. 11/29/2015 [facility]ment[phone] [facility] 11/29/2015 Patient Education: Patient [...] increase effectiveness of lexapro: Recommend filling at [facility] in [place] due to affordability. . Hypertension - uncontrolled [...] pt is to call for acute concerns. Vnntrai-mqahatgmnt-nlt well controlled-add deplin-continue lexapro Patient has not [...] pt is to call for acute concerns. Bfgbpza-hrvyquqwtg-uwyejyzby patient get rid of house guest-he is [...] treat with diflucan weekly x 1 month Pkfjvwzws-lmglwpex-aqdc to use oxygen prn Chronic Depression and anxiety - the pt has symptoms of chronic anxiety and depression that have been fairly well controlled since the last office visit. The pt has expected periods of exacerbation with abatement of the symptoms with change in situational exposure. No change in current medications.
--- OUTSIDE RECORDS SUMMARY | 2018-11-21 17:47 | XMS REPORT | CCD ---
Author Author Morenita Don MD, [facility] Address [address] [place] [address] Phone Care Team Providers Care Regulatory Affairs Spec Name Role Phone PP Unavailable CCM Unavailable Summary Purpose Interface Exchange Insurance Providers Payer name Policy type / Coverage type Covered republican ID Effective Begin Date Effective End Date [employer] [employer] Medicare Part B [id number] 2016 Unknown [employer] [place] Medicare Part B [id number] Unknown Family history Father Diagnosis Age At Onset Myocardial infarction Unknown Mother Diagnosis Age At Onset Myocardial infarction Unknown Social History Social History Element Codes Description Effective Dates Marital status Unknown 11/29/2015 Number of children Unknown 2 son at 3hrs old 11/29/2015 Employment Unknown Retired 11/29/[address]: 264163773 Never smoker 11/29/[address]: 212787379 Never drinks alcohol 11/29/2015 Allergies, Adverse Reactions, [...] chloride ER 10 mEq tablet,extended release RxNorm: 562050 TAKE 2 TABLETS BY MOUTH ONCE DAILY 11/17/2018 No Stop Date Active omeprazole 20 mg capsule,delayed release RxNorm: 441034 1 Capsule(s) PO daily TAKE ONE CAPSULE BY MOUTH ONCE DAILY 09/26/2018 03/24/2019 Active metoprolol succinate ER 25 mg tablet,extended release 24 hr RxNorm: 040951 1 Tablet(s) PO daily 09/26/2018 06/22/2019 Active Diflucan 150 mg tablet RxNorm: 086335 1 Tablet(s) PO QW 09/26/2018 10/25/2018 Inactive clonazepam 1 mg tablet RxNorm: 953999 1 Tablet(s) PO TID PRN 08/12/2018 11/09/2018 Inactive Mobic 15 mg tablet RxNorm: 537130 TAKE ONE TABLET BY MOUTH ONCE DAILY 08/11/2018 No Stop Date Active amlodipine 10 mg tablet RxNorm: 804860 TAKE ONE TABLET BY MOUTH ONCE DAILY 08/11/2018 09/25/2018 Inactive lisinopril 10 mg tablet RxNorm: 030317 TAKE ONE TABLET BY MOUTH ONCE DAILY 07/21/2018 09/25/2018 Inactive potassium chloride ER 10 mEq tablet,extended release RxNorm: 938701 TAKE TWO TABLETS BY MOUTH ONCE DAILY 07/01/2018 11/16/2018 Inactive simvastatin 20 mg tablet RxNorm: 706370 TAKE ONE TABLET BY MOUTH ONCE DAILY IN THE EVENING 06/17/2018 No Stop Date Active omeprazole 20 mg capsule,delayed release RxNorm: 130850 TAKE ONE CAPSULE BY MOUTH ONCE DAILY 06/09/2018 09/25/2018 Inactive Miralax 17 gram oral powder packet RxNorm: 404625 1 packet PO every other day 05/26/2018 No Stop Date Active clonazepam 1 mg tablet RxNorm: 988042 1 Tablet(s) PO TID PRN 05/26/2018 08/11/2018 Inactive melatonin 3 mg tablet RxNorm: 028349 1-2 Tablet(s) PO HS PRN 04/24/2018 No Stop Date Active citalopram 40 mg tablet RxNorm: 888359 1 Tablet(s) PO daily 04/24/2018 10/20/2018 Inactive clonazepam 1 mg tablet RxNorm: 821093 1 Tablet(s) PO TID 04/09/2018 08/11/2018 Inactive citalopram 20 mg tablet RxNorm: 832950 1 Tablet(s) PO daily 01/23/2018 04/23/2018 Inactive metoprolol succinate ER 25 mg tablet,extended release 24 hr RxNorm: 205455 1 Tablet(s) PO daily 01/20/2018 09/25/2018 Inactive citalopram 10 mg tablet RxNorm: 641585 1 Tablet(s) PO daily 12/31/2017 01/22/2018 Inactive clonazepam 1 mg tablet RxNorm: 210478 1 Tablet(s) PO TID 10/09/2017 05/25/2018 Inactive omeprazole 20 mg capsule,delayed release RxNorm: 498059 Capsule(s) TAKE 1 CAPSULE BY MOUTH EVERY DAY 06/03/2017 02/27/2018 Inactive Mobic 15 mg tablet RxNorm: 297680 Tablet(s) 1 TABLET(S) PO DAILY 06/03/2017 02/27/2018 Inactive amlodipine 10 mg tablet RxNorm: 886981 Tablet(s) TAKE 1 TABLET BY MOUTH EVERY DAY 06/03/2017 02/27/2018 Inactive metoprolol succinate ER 25 mg tablet,extended release 24 hr RxNorm: 063917 1 Tablet(s) PO daily 06/03/2017 01/19/2018 Inactive lisinopril 10 mg tablet RxNorm: 093237 Tablet(s) TAKE 1 TABLET BY MOUTH EVERY DAY 06/03/2017 02/27/2018 Inactive Lexapro 20 mg tablet RxNorm: 265774 1 Tablet(s) PO QPM 06/03/2017 12/30/2017 Inactive clonazepam 1 mg tablet RxNorm: 385700 1 Tablet(s) PO TID 06/03/2017 10/08/2017 Inactive potassium chloride ER 10 mEq tablet,extended release RxNorm: 656430 Tablet(s) TAKE 2 TABLETS BY MOUTH EVERY DAY 06/03/2017 02/27/2018 Inactive simvastatin 20 mg tablet RxNorm: 231224 Tablet(s) 1 TABLET(S) PO QPM 06/03/2017 02/27/2018 Inactive Mobic 15 mg tablet RxNorm: 161168 1 TABLET(S) PO DAILY 04/23/2017 06/02/2017 Inactive lisinopril 10 mg tablet RxNorm: 617144 TAKE 1 TABLET BY MOUTH EVERY DAY 04/05/2017 06/02/2017 Inactive metoprolol succinate ER 25 mg tablet,extended release 24 hr RxNorm: 453206 1 Tablet(s) PO daily 02/01/2017 06/02/2017 Inactive Lexapro 20 mg tablet RxNorm: 997352 1 Tablet(s) PO QPM TAKE 1 TABLET BY MOUTH EVERY EVENING 02/01/2017 02/01/2017 Inactive Lexapro 20 mg tablet RxNorm: 281528 1 Tablet(s) PO QPM 1 TABLET(S) PO QPM TAKE 1 TABLET BY MOUTH EVERY EVENING 02/01/2017 06/02/2017 Inactive Patient requests 90 days supply clonazepam 1 mg tablet RxNorm: 275101 1 Tablet(s) PO TID 02/01/2017 06/02/2017 Inactive Lexapro 20 mg tablet RxNorm: 715307 1 Tablet(s) PO QPM 1 TABLET(S) PO QPM TAKE 1 TABLET BY MOUTH EVERY EVENING 02/01/2017 01/31/2017 Inactive Patient requests 90 days supply metoprolol succinate ER 25 mg tablet,extended release 24 hr RxNorm: 331484 1 Tablet(s) PO daily 02/01/2017 01/31/2017 Inactive amlodipine 10 mg tablet RxNorm: 168292 TAKE 1 TABLET BY MOUTH EVERY DAY 01/15/2017 06/02/2017 Inactive potassium chloride ER 10 mEq tablet,extended release RxNorm: 065041 TAKE 2 TABLETS BY MOUTH EVERY DAY 12/04/2016 06/02/2017 Inactive Lexapro 20 mg tablet RxNorm: 445724 TAKE 1 TABLET BY MOUTH EVERY EVENING 11/12/2016 01/31/2017 Inactive omeprazole 20 mg capsule,delayed release RxNorm: 240631 TAKE 1 CAPSULE BY MOUTH EVERY DAY 10/29/2016 10/28/2016 Inactive omeprazole 20 mg capsule,delayed release RxNorm: 285635 TAKE 1 CAPSULE BY MOUTH EVERY DAY 10/29/2016 06/02/2017 Inactive L-Methylfolate 15 mg tablet RxNorm: 1 Tablet(s) PO daily 10/08/2016 01/31/2017 Inactive clonazepam 1 mg tablet RxNorm: 681246 1 Tablet(s) PO BID 08/31/2016 01/31/2017 Inactive L-Methylfolate 15 mg tablet RxNorm: 1 Tablet(s) PO daily 08/28/2016 10/07/2016 Inactive lisinopril 20 mg tablet RxNorm: 901310 1 Tablet(s) PO daily 08/21/2016 11/18/2016 Inactive lisinopril 20 mg tablet RxNorm: 199422 1 Tablet(s) PO daily 08/21/2016 11/18/2016 Inactive Deplin (algal oil) 15 mg-90.314 mg capsule RxNorm: 1 Capsule(s) PO daily 08/21/2016 08/27/2016 Inactive Lexapro 20 mg tablet RxNorm: 864478 1 TABLET(S) PO QPM 07/27/2016 12/30/2017 Inactive simvastatin 20 mg tablet RxNorm: 776945 1 TABLET(S) PO QPM 05/24/2016 11/19/2016 Inactive Patient requests 90 days supply simvastatin 20 mg tablet RxNorm: 636179 1 Tablet(s) PO QPM 05/23/2016 05/23/2016 Inactive Lexapro 20 mg tablet RxNorm: 162984 1 Tablet(s) PO QPM 02/28/2016 02/28/2016 Inactive Lexapro 20 mg tablet RxNorm: 420034 1 Tablet(s) PO QPM 1 TABLET(S) PO QPM 02/28/2016 12/30/2017 Inactive Patient requests 90 days supply tramadol 50 mg tablet RxNorm: 947564 1 Tablet(s) PO Q6 as needed for pain 02/27/2016 04/11/2016 Inactive potassium chloride ER 10 mEq tablet,extended release RxNorm: 999768 TAKE 2 TABLETS BY MOUTH EVERY DAY 02/27/2016 11/22/2016 Inactive citalopram 20 mg tablet RxNorm: 130228 1 Tablet(s) PO QAM 02/27/2016 02/27/2016 Inactive clonazepam 1 mg tablet RxNorm: 093591 1 Tablet(s) PO BID 02/27/2016 12/30/2017 Inactive omeprazole 20 mg capsule,delayed release RxNorm: 181244 TAKE 1 CAPSULE BY MOUTH EVERY DAY 02/13/2016 10/28/2016 Inactive Mobic 15 mg tablet RxNorm: 326801 1 Tablet(s) PO daily 02/10/2016 02/03/2017 Inactive Multiple Vitamins Daily tablet RxNorm: 1 Tablet(s) PO daily 11/29/2015 12/28/2015 Inactive amlodipine 10 mg tablet RxNorm: 962447 1 Tablet(s) PO daily 11/29/2015 12/30/2017 Inactive simvastatin 20 mg tablet RxNorm: 130316 1 Tablet(s) PO QPM 11/29/2015 12/28/2015 Inactive clonazepam 1 mg tablet RxNorm: 696121 1 Tablet(s) PO Q12H 11/29/2015 12/30/2017 Inactive Colace 100 mg capsule RxNorm: 9110736 1 Capsule(s) PO daily 11/29/2015 11/29/2015 Inactive citalopram 20 mg tablet RxNorm: 222305 1 Tablet(s) PO QAM 11/29/2015 12/28/2015 Inactive Mobic 15 mg tablet RxNorm: 725897 1 Tablet(s) PO daily 11/29/2015 12/30/2017 Inactive potassium chloride ER 10 mEq tablet,extended release RxNorm: 487339 2 Tablet(s) PO daily 20meq daily 11/29/2015 12/28/2015 Inactive lisinopril 10 mg tablet RxNorm: 767614 1 Tablet(s) PO daily 11/29/2015 12/30/2017 Inactive Coricidin HBP 10 mg-200 mg capsule RxNorm: 4312553 1 Capsule(s) PO PRN No Start Date Active cranberry 400 mg capsule RxNorm: 725106 1 Capsule(s) PO daily No Start Date Active Vitamin D3 1,000 unit tablet RxNorm: 382323 1 Tablet(s) PO daily No Start Date Active docusate sodium 100 mg tablet RxNorm: 7210512 1 Tablet(s) PO daily No Start Date Active Mobic 15 mg tablet RxNorm: 060327 1 Tablet(s) PO daily No Start Date 02/09/2016 Inactive Vitamin D3 1,000 unit tablet RxNorm: 350507 1 Tablet(s) PO daily No Start Date 06/02/2017 Inactive omeprazole 20 mg tablet,delayed release RxNorm: 309765 1 Tablet(s) PO daily No Start Date 06/02/2017 Inactive potassium chloride ER 10 mEq tablet,extended release RxNorm: 790799 2 Tablet(s) PO daily No Start Date 06/02/2017 Inactive clonazepam 1 mg tablet RxNorm: 499050 1 Tablet(s) PO BID No Start Date 02/26/2016 Inactive Aleve PM 220 mg-25 mg tablet RxNorm: 7933639 1 Tablet(s) PO daily No Start Date 05/27/2016 Inactive amlodipine 10 mg tablet RxNorm: 685062 1 Tablet(s) PO daily No Start Date 01/14/2017 Inactive lisinopril 10 mg tablet RxNorm: 262174 1 Tablet(s) PO daily No Start Date 08/20/2016 Inactive tramadol 50 mg tablet RxNorm: 061238 1 Tablet(s) PO Q6 PRN No Start Date 02/26/2016 Inactive Ultram 50 mg tablet RxNorm: 641305 1 Tablet(s) PO Q6 as needed No Start Date 11/28/2015 Inactive simvastatin 20 mg tablet RxNorm: 822363 1 Tablet(s) PO QHS No Start Date 06/02/2017 Inactive citalopram 20 mg tablet RxNorm: 193915 1 Tablet(s) PO daily No Start Date 02/26/2016 Inactive lisinopril 10 mg tablet RxNorm: 377591 1 Tablet(s) PO daily No Start Date 04/04/2017 Inactive omeprazole 20 mg capsule,delayed release RxNorm: 646172 1 Capsule(s) PO daily No Start Date [...] Ord30 C/HDL 2.8 Ratio 10/09/2016 Comp Metabolic Tjt804 NA 136 mEq/L 10/09/2016 Comp Metabolic Wnk707 K 4.9 mEq/L 10/09/2016 Comp Metabolic Prj960 CL 97 mEq/L 10/09/2016 Comp Metabolic Iat931 CO2 30.0 mEq/L 10/09/2016 Comp Metabolic Gzm756 ANION GAP 14 10/09/2016 Comp Metabolic Egb939 GLUCOSE 66 mg/dL 10/09/2016 Comp Metabolic Nbh527 Creat 0.9 mg/dL 10/09/2016 Comp Metabolic Mog127 eGFR 64 ml/min/1.73m2 10/09/2016 Comp Metabolic Yjw929 BUN 13 mg/dL 10/09/2016 Comp Metabolic Fwi416 B/C Ratio 14.6 Ratio 10/09/2016 Comp Metabolic Mol992 CALCIUM 10.0 mg/dL 10/09/2016 Comp Metabolic Lzw907 ALK PHOS 59 U/L 10/09/2016 Comp Metabolic Oqd678 AST(SGOT) 20 U/L 10/09/2016 Comp Metabolic Zsv681 ALT(SGPT) 9 U/L 10/09/2016 Comp Metabolic Kjj744 BILI T 0.4 mg/dL 10/09/2016 Comp Metabolic Jcw809 ALBUMIN 4.1 g/dL 10/09/2016 Comp Metabolic Ueb258 TPRO 7.1 g/dL 10/09/2016 Comp Metabolic Uxj000 GLOB 3.0 g/dL 10/09/2016 Comp Metabolic Wbc924 A/G Ratio 1.4 Ratio 10/09/2016 Comp Metabolic Oqi229 Osmo 270 mOsmo 10/09/2016 Tsh Ord6 hTSH [...] 31.2 pg 10/09/2016 Cbc With Differential Ord2 [place]% 13.7 % 10/09/2016 Cbc With Differential Ord2 [...] 1.49 K/ul 10/09/2016 Cbc With Differential Ord2 [place] ABS# 0.6 K/ul 10/09/2016 Cbc With Differential [...] Effective Dates Notes Full Exam - General 1995 Constitutional general appearance Overall: well developed 09/26/2018 [...] clubbing 05/26/2018 None Full Exam - General 1995 Cardiovascular auscultation of heart Overall: regular rate 05/26/2018 None Full Exam - General 1995 Cardiovascular auscultation of heart Overall: normal heart sounds 05/26/2018 None Full Exam - General 1995 Cardiovascular auscultation of heart Systolic murmur: holosystolic 05/26/2018 None Full Exam - General 1994 Cardiovascular auscultation of heart Systolic murmur grade: II/ 05/26/2018 None Full Exam - General 1995 Abdomen abdominal exam Overall: no tenderness 05/26/2018 None Full Exam - General 1995 Abdomen abdominal exam Overall: normal bowel sounds [...] Ears/Nose/Throat lips/teeth/gingiva Teeth: wears dentures 12/31/2017 [facility] Full Exam - General 1994 Respiratory auscultation [...] Ears/Nose/Throat lips/teeth/gingiva Teeth: wears dentures 10/29/2017 [facility] Full Exam - General 1994 Respiratory respiratory [...] clear 05/28/2016 None Full Exam - General 1995 Ears/Nose/Throat otoscopic exam Overall: tympanic membranes clear 05/28/2016 None Full Exam - General 1994 Ears/Nose/Throat lips/teeth/gingiva Teeth: wears dentures 05/28/2016 [facility] Full Exam - General 1994 Respiratory auscultation [...] Ears/Nose/Throat lips/teeth/gingiva Teeth: wears dentures 02/28/2016 [facility] Full Exam - General 1994 Respiratory auscultation [...] 1994 Ears/Nose/Throat lips/teeth/gingiva Teeth: wears dentures 11/29/2015 [facility] Full Exam - General 1994 Eyes conjunctiva/eyelids [...] 1: 164/82 Code: 8480-6 BMI: 26.0 Code: 85211-8 Heart Rate 1: 120 bpm Height: 5'5" SpO2: 95% Weight: 156 lbs 08/21/2016 Blood Pressure 1: 166/80 Code: 8480-6 BMI: 25.8 Code: 43529-9 Heart Rate 1: 105 bpm Height: 5'5" SpO2: 95% Weight: 155 lbs 05/28/2016 Blood Pressure 1: 142/74 Code: 8480-6 BMI: 25.3 Code: 21252-4 Heart Rate 1: 104 bpm Height: 5'5" SpO2: 96% Weight: 152 lbs 02/28/2016 Blood Pressure 1: 130/70 Code: 8480-6 BMI: 26.0 Code: 54176-3 Heart Rate 1: 100 bpm Height: 5'5" SpO2: 96% Weight: 156 lbs 11/29/2015 Blood Pressure 1: 130/70 Code: 8480-6 BMI: 25.5 Code: 98044-0 Heart Rate 1: 86 bpm Height: 5'5" [...] data Encounters Encounter Performer Location Codes Date ([id number]) 32446 EST. PATIENT, LEVEL IV Diagnosis: Essential (primary) hypertension[ICD10: I10] Diagnosis: Generalized anxiety disorder[ICD10: F41.1] Diagnosis: Pneumonia, unspecified organism[ICD10: J18.9] Diagnosis: Urinary tract infection, site not specified[ICD10: N39.0] Morenita Davenport MD, [facility] CPT-4: 83955 09/26/2018 ([id number]) 80429 EST. PATIENT, LEVEL IV Diagnosis: Slow transit constipation[ICD10: K59.01] Diagnosis: Generalized anxiety disorder[ICD10: F41.1] Diagnosis: Essential (primary) hypertension[ICD10: I10] Morenita Davenport MD, [facility] CPT-4: 76000 05/26/2018 ([id number]) 05265 EST. PATIENT, LEVEL IV Diagnosis: Essential (primary) hypertension[ICD10: I10] Diagnosis: Generalized anxiety disorder[ICD10: F41.1] Diagnosis: Other insomnia[ICD10: G47.09] Morenita Davenport MD, [facility] CPT-4: 64575 04/24/2018 ([id number]) 42706 EST. PATIENT, LEVEL IV Diagnosis: Essential (primary) hypertension[ICD10: I10] Diagnosis: Generalized anxiety disorder[ICD10: F41.1] Diagnosis: Major depressive disorder, recurrent, mild[ICD10: F33.0] Diagnosis: Unsteadiness on feet[ICD10: R26.81] Morenita Davenport MD, [facility] CPT-4: 78788 12/31/2017 [id number] EST. PATIENT, LEVEL IV Diagnosis: Essential (primary) hypertension[ICD10: I10] Diagnosis: Hypoxemia[ICD10: R09.02] Diagnosis: Sleep related hypoventilation in conditions classified elsewhere[ICD10: G47.36] Tia Davenport MD, [facility] CPT-4: 63636 10/29/2017 ([id number]) 36942 EST. PATIENT, LEVEL IV Diagnosis: Essential (primary) hypertension[ICD10: I10] Diagnosis: Generalized anxiety disorder[ICD10: F41.1] Diagnosis: Major depressive disorder, recurrent, mild[ICD10: F33.0] Morenita Davenport MD, [facility] CPT-4: 99508 02/01/2017 ([id number]) 87157 EST. PATIENT, LEVEL IV Diagnosis: Essential (primary) hypertension[ICD10: I10] Diagnosis: Generalized anxiety disorder[ICD10: F41.1] Diagnosis: Major depressive disorder, recurrent, mild[ICD10: F33.0] Morenita Davenport MD, [facility] CPT-4: 49928 08/21/2016 ([id number]) 27010 EST. PATIENT, LEVEL IV Diagnosis: Generalized anxiety disorder[ICD10: F41.1] Diagnosis: Essential (primary) hypertension[ICD10: I10] Diagnosis: Gastro-esophageal reflux disease without esophagitis[ICD10: K21.9] Morenita Davenport MD, [facility] CPT-4: 57270 05/28/2016 ([id number]) 49920 EST. PATIENT, LEVEL IV Diagnosis: Generalized anxiety disorder[ICD10: F41.1] Diagnosis: Major depressive disorder, recurrent, mild[ICD10: F33.0] Diagnosis: Essential (primary) hypertension[ICD10: I10] Morenita Davenport MD, [facility] CPT-4: 41064 02/28/2016 ([id number]) OFFICE VISIT, NEW - LEVEL 4 Diagnosis: Essential (primary) hypertension[ICD10: I10] Diagnosis: Generalized anxiety disorder[ICD10: F41.1] Diagnosis: Mixed hyperlipidemia[ICD10: E78.2] Diagnosis: Major depressive disorder, recurrent, mild[ICD10: F33.0] [facility] CPT-4: 27764 11/29/2015 Plan of Care Planned Activity Notes [...] treat with diflucan weekly x 1 month Fzlwiqacc-fiialkjj-rdvt to use oxygen prn Chronic Depression and anxiety - the pt has symptoms of chronic anxiety and depression that have been fairly well controlled since the last office visit. The pt has expected periods of exacerbation with abatement of the symptoms with change in situational exposure. No change in current medications. 09/26/2018 Appointment: Morenita Don WPtel: [facility]1 [phone] (15 min) Moderate 09/26/2018 Patient Education: Patient Medication Summary Completed 09/26/2018 Patient Education: Hypertension Completed 09/26/2018 Appointment: Morenita Don WPtel: [facility]4 [phone] (30 min) Complex 09/08/2018 Visit Plan: Constipation [...] at home. 05/26/2018 Appointment: Morenita Don WPtel: [facility]4 [place] [phone] (15 min) Moderate 05/26/2018 Patient Education: Patient [...] to 6mg as needed 04/24/2018 Appointment: Morenita Dontel: [address] [place], [place] [phone] (30 min) Complex 04/24/2018 Patient Education: Patient Medication Summary Completed 04/24/2018 Patient Education: Hypertension Completed 04/24/2018 Appointment: Morenita Don WPtel: [address] [place], [place] [phone] (30 min) Complex 04/17/2018 Appointment: Morenita Don WPtel: [address] [place], [place] [phone] (15 min) Moderate 04/04/2018 Appointment: Morenita Don WPtel: [address] [place], [place] [phone] (15 min) Moderate 03/06/2018 Appointment: Morenita Don WPtel: [address] [place], [place] [phone] (15 min) Moderate 01/31/2018 Visit Plan: Hypertension [...] understanding. 12/31/2017 Appointment: Morenita Don WPtel: [phone] [phone] (30 min) Complex 12/31/2017 Patient Education: Patient [...] or concerns. 10/29/2017 Appointment: Tia Hernandez WPtel: [facility]5 [phone] (30 min) Complex 10/29/2017 Patient Education: Patient Medication Summary Completed 10/29/2017 Appointment: Morenita Don WPtel: [phone] [phone] (30 min) Complex 08/20/2017 Visit Plan: Hypertension [...] pt is to call for acute concerns. Wybijzz-kusvvwbmhc-reokmdqrp patient get rid of house guest-he is taking advantage of her and causing her undue stress and worry. Increase clonazepam to TID prn-follow up in 2 weeks. 02/01/2017 Appointment: Morenita Don WPtel: [phone] [phone] (15 min) Moderate 02/01/2017 Patient Education: Patient [...] pt is to call for acute concerns. Plrovcc-enngdclsyi-glw well controlled-add deplin-continue lexapro Patient has not had recent labs-will send orders for fasting labs 08/21/2016 Appointment: Morenita Don WPtel: [phone] [phone] (15 min) Moderate 08/21/2016 Patient Education: Patient [...] any worse 05/28/2016 Appointment: Morenita Don WPtel: [phone] [phone] (15 min) Moderate 05/28/2016 Patient Education: Patient [...] home. 02/28/2016 Appointment: [facility] Don [facility]el[phone] [phone] (30 min) Complex 02/28/2016 Patient Education: Patient [...] li alize response to medications. 11/29/2015 Appointment: ArianMorenita WPtel: [facility] [phone] [place] New Patient 11/29/2015 Patient Education: Patient [...] increase effectiveness of lexapro: Recommend filling at [facility] in [place] due to affordability. . Hypertension - uncontrolled [...] pt is to call for acute concerns. Xjpualz-yssjfbwvfx-eyy well controlled-add deplin-continue lexapro Patient has not [...] pt is to call for acute concerns. Ydzufhu-tpxuxxsmdy-nlpwebkhp patient get rid of house guest-he is [...] treat with diflucan weekly x 1 month Fqlbshloc-pyyzkleq-tave to use oxygen prn Chronic Depression and anxiety - the pt has symptoms of chronic anxiety and depression that have been fairly well controlled since the last office visit. The pt has expected periods of exacerbation with abatement of the symptoms with change in situational exposure. No change in current medications.
--- OUTSIDE RECORDS SUMMARY | 2018-11-21 17:48 | XMS REPORT | CCD ---
Author Author Morenita Don MD, [facility] Address [address] [place] [address] Phone Care Team Providers Care Yardage Control Clerk Name Role Phone PP Unavailable CCM Unavailable Summary Purpose Interface Exchange Insurance Providers Payer name Policy type / Coverage type Covered alliance party ID Effective Begin Date Effective End Date [employer] [employer] Medicare Part B [id number] 2016 Unknown [employer] [place] Medicare Part B [id number] Unknown Family history Father Diagnosis Age At Onset Myocardial infarction Unknown Mother Diagnosis Age At Onset Myocardial infarction Unknown Social History Social History Element Codes Description Effective Dates Marital status Unknown 11/29/2015 Number of children Unknown 2 son at 3hrs old 11/29/2015 Employment Unknown Retired 11/29/[address]: 731900699 Never smoker 11/29/[address]: 743363292 Never drinks alcohol 11/29/2015 Allergies, Adverse Reactions, [...] chloride ER 10 mEq tablet,extended release RxNorm: 614322 TAKE 2 TABLETS BY MOUTH ONCE DAILY 11/17/2018 No Stop Date Active omeprazole 20 mg capsule,delayed release RxNorm: 273508 1 Capsule(s) PO daily TAKE ONE CAPSULE BY MOUTH ONCE DAILY 09/26/2018 03/24/2019 Active metoprolol succinate ER 25 mg tablet,extended release 24 hr RxNorm: 987000 1 Tablet(s) PO daily 09/26/2018 06/22/2019 Active Diflucan 150 mg tablet RxNorm: 699042 1 Tablet(s) PO QW 09/26/2018 10/25/2018 Inactive clonazepam 1 mg tablet RxNorm: 217071 1 Tablet(s) PO TID PRN 08/12/2018 11/09/2018 Inactive Mobic 15 mg tablet RxNorm: 001244 TAKE ONE TABLET BY MOUTH ONCE DAILY 08/11/2018 No Stop Date Active amlodipine 10 mg tablet RxNorm: 546637 TAKE ONE TABLET BY MOUTH ONCE DAILY 08/11/2018 09/25/2018 Inactive lisinopril 10 mg tablet RxNorm: 082416 TAKE ONE TABLET BY MOUTH ONCE DAILY 07/21/2018 09/25/2018 Inactive potassium chloride ER 10 mEq tablet,extended release RxNorm: 764098 TAKE TWO TABLETS BY MOUTH ONCE DAILY 07/01/2018 11/16/2018 Inactive simvastatin 20 mg tablet RxNorm: 127330 TAKE ONE TABLET BY MOUTH ONCE DAILY IN THE EVENING 06/17/2018 No Stop Date Active omeprazole 20 mg capsule,delayed release RxNorm: 398937 TAKE ONE CAPSULE BY MOUTH ONCE DAILY 06/09/2018 09/25/2018 Inactive Miralax 17 gram oral powder packet RxNorm: 596946 1 packet PO every other day 05/26/2018 No Stop Date Active clonazepam 1 mg tablet RxNorm: 976128 1 Tablet(s) PO TID PRN 05/26/2018 08/11/2018 Inactive melatonin 3 mg tablet RxNorm: 277048 1-2 Tablet(s) PO HS PRN 04/24/2018 No Stop Date Active citalopram 40 mg tablet RxNorm: 959089 1 Tablet(s) PO daily 04/24/2018 10/20/2018 Inactive clonazepam 1 mg tablet RxNorm: 598564 1 Tablet(s) PO TID 04/09/2018 08/11/2018 Inactive citalopram 20 mg tablet RxNorm: 481872 1 Tablet(s) PO daily 01/23/2018 04/23/2018 Inactive metoprolol succinate ER 25 mg tablet,extended release 24 hr RxNorm: 889421 1 Tablet(s) PO daily 01/20/2018 09/25/2018 Inactive citalopram 10 mg tablet RxNorm: 187423 1 Tablet(s) PO daily 12/31/2017 01/22/2018 Inactive clonazepam 1 mg tablet RxNorm: 104784 1 Tablet(s) PO TID 10/09/2017 05/25/2018 Inactive omeprazole 20 mg capsule,delayed release RxNorm: 992231 Capsule(s) TAKE 1 CAPSULE BY MOUTH EVERY DAY 06/03/2017 02/27/2018 Inactive Mobic 15 mg tablet RxNorm: 149238 Tablet(s) 1 TABLET(S) PO DAILY 06/03/2017 02/27/2018 Inactive amlodipine 10 mg tablet RxNorm: 303402 Tablet(s) TAKE 1 TABLET BY MOUTH EVERY DAY 06/03/2017 02/27/2018 Inactive metoprolol succinate ER 25 mg tablet,extended release 24 hr RxNorm: 686817 1 Tablet(s) PO daily 06/03/2017 01/19/2018 Inactive lisinopril 10 mg tablet RxNorm: 164208 Tablet(s) TAKE 1 TABLET BY MOUTH EVERY DAY 06/03/2017 02/27/2018 Inactive Lexapro 20 mg tablet RxNorm: 530179 1 Tablet(s) PO QPM 06/03/2017 12/30/2017 Inactive clonazepam 1 mg tablet RxNorm: 694397 1 Tablet(s) PO TID 06/03/2017 10/08/2017 Inactive potassium chloride ER 10 mEq tablet,extended release RxNorm: 180170 Tablet(s) TAKE 2 TABLETS BY MOUTH EVERY DAY 06/03/2017 02/27/2018 Inactive simvastatin 20 mg tablet RxNorm: 324715 Tablet(s) 1 TABLET(S) PO QPM 06/03/2017 02/27/2018 Inactive Mobic 15 mg tablet RxNorm: 978409 1 TABLET(S) PO DAILY 04/23/2017 06/02/2017 Inactive lisinopril 10 mg tablet RxNorm: 042292 TAKE 1 TABLET BY MOUTH EVERY DAY 04/05/2017 06/02/2017 Inactive metoprolol succinate ER 25 mg tablet,extended release 24 hr RxNorm: 802332 1 Tablet(s) PO daily 02/01/2017 06/02/2017 Inactive Lexapro 20 mg tablet RxNorm: 445666 1 Tablet(s) PO QPM TAKE 1 TABLET BY MOUTH EVERY EVENING 02/01/2017 02/01/2017 Inactive Lexapro 20 mg tablet RxNorm: 752426 1 Tablet(s) PO QPM 1 TABLET(S) PO QPM TAKE 1 TABLET BY MOUTH EVERY EVENING 02/01/2017 06/02/2017 Inactive Patient requests 90 days supply clonazepam 1 mg tablet RxNorm: 450384 1 Tablet(s) PO TID 02/01/2017 06/02/2017 Inactive Lexapro 20 mg tablet RxNorm: 115281 1 Tablet(s) PO QPM 1 TABLET(S) PO QPM TAKE 1 TABLET BY MOUTH EVERY EVENING 02/01/2017 01/31/2017 Inactive Patient requests 90 days supply metoprolol succinate ER 25 mg tablet,extended release 24 hr RxNorm: 625613 1 Tablet(s) PO daily 02/01/2017 01/31/2017 Inactive amlodipine 10 mg tablet RxNorm: 477435 TAKE 1 TABLET BY MOUTH EVERY DAY 01/15/2017 06/02/2017 Inactive potassium chloride ER 10 mEq tablet,extended release RxNorm: 771632 TAKE 2 TABLETS BY MOUTH EVERY DAY 12/04/2016 06/02/2017 Inactive Lexapro 20 mg tablet RxNorm: 779268 TAKE 1 TABLET BY MOUTH EVERY EVENING 11/12/2016 01/31/2017 Inactive omeprazole 20 mg capsule,delayed release RxNorm: 723696 TAKE 1 CAPSULE BY MOUTH EVERY DAY 10/29/2016 10/28/2016 Inactive omeprazole 20 mg capsule,delayed release RxNorm: 171028 TAKE 1 CAPSULE BY MOUTH EVERY DAY 10/29/2016 06/02/2017 Inactive L-Methylfolate 15 mg tablet RxNorm: 1 Tablet(s) PO daily 10/08/2016 01/31/2017 Inactive clonazepam 1 mg tablet RxNorm: 756022 1 Tablet(s) PO BID 08/31/2016 01/31/2017 Inactive L-Methylfolate 15 mg tablet RxNorm: 1 Tablet(s) PO daily 08/28/2016 10/07/2016 Inactive lisinopril 20 mg tablet RxNorm: 342517 1 Tablet(s) PO daily 08/21/2016 11/18/2016 Inactive lisinopril 20 mg tablet RxNorm: 442452 1 Tablet(s) PO daily 08/21/2016 11/18/2016 Inactive Deplin (algal oil) 15 mg-90.314 mg capsule RxNorm: 1 Capsule(s) PO daily 08/21/2016 08/27/2016 Inactive Lexapro 20 mg tablet RxNorm: 426488 1 TABLET(S) PO QPM 07/27/2016 12/30/2017 Inactive simvastatin 20 mg tablet RxNorm: 215839 1 TABLET(S) PO QPM 05/24/2016 11/19/2016 Inactive Patient requests 90 days supply simvastatin 20 mg tablet RxNorm: 678735 1 Tablet(s) PO QPM 05/23/2016 05/23/2016 Inactive Lexapro 20 mg tablet RxNorm: 260805 1 Tablet(s) PO QPM 02/28/2016 02/28/2016 Inactive Lexapro 20 mg tablet RxNorm: 249429 1 Tablet(s) PO QPM 1 TABLET(S) PO QPM 02/28/2016 12/30/2017 Inactive Patient requests 90 days supply tramadol 50 mg tablet RxNorm: 893962 1 Tablet(s) PO Q6 as needed for pain 02/27/2016 04/11/2016 Inactive potassium chloride ER 10 mEq tablet,extended release RxNorm: 524295 TAKE 2 TABLETS BY MOUTH EVERY DAY 02/27/2016 11/22/2016 Inactive citalopram 20 mg tablet RxNorm: 823670 1 Tablet(s) PO QAM 02/27/2016 02/27/2016 Inactive clonazepam 1 mg tablet RxNorm: 902010 1 Tablet(s) PO BID 02/27/2016 12/30/2017 Inactive omeprazole 20 mg capsule,delayed release RxNorm: 913068 TAKE 1 CAPSULE BY MOUTH EVERY DAY 02/13/2016 10/28/2016 Inactive Mobic 15 mg tablet RxNorm: 352875 1 Tablet(s) PO daily 02/10/2016 02/03/2017 Inactive Multiple Vitamins Daily tablet RxNorm: 1 Tablet(s) PO daily 11/29/2015 12/28/2015 Inactive amlodipine 10 mg tablet RxNorm: 811180 1 Tablet(s) PO daily 11/29/2015 12/30/2017 Inactive simvastatin 20 mg tablet RxNorm: 528364 1 Tablet(s) PO QPM 11/29/2015 12/28/2015 Inactive clonazepam 1 mg tablet RxNorm: 727623 1 Tablet(s) PO Q12H 11/29/2015 12/30/2017 Inactive Colace 100 mg capsule RxNorm: 7321815 1 Capsule(s) PO daily 11/29/2015 11/29/2015 Inactive citalopram 20 mg tablet RxNorm: 071758 1 Tablet(s) PO QAM 11/29/2015 12/28/2015 Inactive Mobic 15 mg tablet RxNorm: 987007 1 Tablet(s) PO daily 11/29/2015 12/30/2017 Inactive potassium chloride ER 10 mEq tablet,extended release RxNorm: 314350 2 Tablet(s) PO daily 20meq daily 11/29/2015 12/28/2015 Inactive lisinopril 10 mg tablet RxNorm: 504193 1 Tablet(s) PO daily 11/29/2015 12/30/2017 Inactive Coricidin HBP 10 mg-200 mg capsule RxNorm: 1411386 1 Capsule(s) PO PRN No Start Date Active cranberry 400 mg capsule RxNorm: 861066 1 Capsule(s) PO daily No Start Date Active Vitamin D3 1,000 unit tablet RxNorm: 345372 1 Tablet(s) PO daily No Start Date Active docusate sodium 100 mg tablet RxNorm: 8945575 1 Tablet(s) PO daily No Start Date Active Mobic 15 mg tablet RxNorm: 316471 1 Tablet(s) PO daily No Start Date 02/09/2016 Inactive Vitamin D3 1,000 unit tablet RxNorm: 447085 1 Tablet(s) PO daily No Start Date 06/02/2017 Inactive omeprazole 20 mg tablet,delayed release RxNorm: 283968 1 Tablet(s) PO daily No Start Date 06/02/2017 Inactive potassium chloride ER 10 mEq tablet,extended release RxNorm: 164604 2 Tablet(s) PO daily No Start Date 06/02/2017 Inactive clonazepam 1 mg tablet RxNorm: 182365 1 Tablet(s) PO BID No Start Date 02/26/2016 Inactive Aleve PM 220 mg-25 mg tablet RxNorm: 9917372 1 Tablet(s) PO daily No Start Date 05/27/2016 Inactive amlodipine 10 mg tablet RxNorm: 483308 1 Tablet(s) PO daily No Start Date 01/14/2017 Inactive lisinopril 10 mg tablet RxNorm: 912599 1 Tablet(s) PO daily No Start Date 08/20/2016 Inactive tramadol 50 mg tablet RxNorm: 841274 1 Tablet(s) PO Q6 PRN No Start Date 02/26/2016 Inactive Ultram 50 mg tablet RxNorm: 244861 1 Tablet(s) PO Q6 as needed No Start Date 11/28/2015 Inactive simvastatin 20 mg tablet RxNorm: 802675 1 Tablet(s) PO QHS No Start Date 06/02/2017 Inactive citalopram 20 mg tablet RxNorm: 200904 1 Tablet(s) PO daily No Start Date 02/26/2016 Inactive lisinopril 10 mg tablet RxNorm: 542731 1 Tablet(s) PO daily No Start Date 04/04/2017 Inactive omeprazole 20 mg capsule,delayed release RxNorm: 796654 1 Capsule(s) PO daily No Start Date [...] Ord30 C/HDL 2.8 Ratio 10/09/2016 Comp Metabolic Pvn605 NA 136 mEq/L 10/09/2016 Comp Metabolic Xzc876 K 4.9 mEq/L 10/09/2016 Comp Metabolic Qbg326 CL 97 mEq/L 10/09/2016 Comp Metabolic Mcg048 CO2 30.0 mEq/L 10/09/2016 Comp Metabolic Fyw209 ANION GAP 14 10/09/2016 Comp Metabolic Fau035 GLUCOSE 66 mg/dL 10/09/2016 Comp Metabolic Fmj655 Creat 0.9 mg/dL 10/09/2016 Comp Metabolic Wek869 eGFR 64 ml/min/1.73m2 10/09/2016 Comp Metabolic Hfy921 BUN 13 mg/dL 10/09/2016 Comp Metabolic Jjs028 B/C Ratio 14.6 Ratio 10/09/2016 Comp Metabolic Ywz190 CALCIUM 10.0 mg/dL 10/09/2016 Comp Metabolic Wfe733 ALK PHOS 59 U/L 10/09/2016 Comp Metabolic Ngw867 AST(SGOT) 20 U/L 10/09/2016 Comp Metabolic Wbl226 ALT(SGPT) 9 U/L 10/09/2016 Comp Metabolic Mfe798 BILI T 0.4 mg/dL 10/09/2016 Comp Metabolic Aya750 ALBUMIN 4.1 g/dL 10/09/2016 Comp Metabolic Url155 TPRO 7.1 g/dL 10/09/2016 Comp Metabolic Ycz219 GLOB 3.0 g/dL 10/09/2016 Comp Metabolic Aoz735 A/G Ratio 1.4 Ratio 10/09/2016 Comp Metabolic Hmb118 Osmo 270 mOsmo 10/09/2016 Tsh Ord6 hTSH [...] 31.2 pg 10/09/2016 Cbc With Differential Ord2 [place]% 13.7 % 10/09/2016 Cbc With Differential Ord2 [...] 1.49 K/ul 10/09/2016 Cbc With Differential Ord2 [place] ABS# 0.6 K/ul 10/09/2016 Cbc With Differential [...] 1994 Ears/Nose/Throat lips/teeth/gingiva Teeth: wears dentures 12/31/2017 [facility] Full Exam - General [...] 1994 Ears/Nose/Throat lips/teeth/gingiva Teeth: wears dentures 10/29/2017 [facility] Full Exam - General [...] 1994 Ears/Nose/Throat lips/teeth/gingiva Teeth: wears dentures 05/28/2016 [facility] Full Exam - General [...] 1994 Ears/Nose/Throat lips/teeth/gingiva Teeth: wears dentures 02/28/2016 [facility] Full Exam - General [...] 1994 Ears/Nose/Throat lips/teeth/gingiva Teeth: wears dentures 11/29/2015 [facility] Full Exam - General [...] 1: 164/82 Code: 8480-6 BMI: 26.0 Code: 88903-7 Heart Rate 1: 120 bpm Height: 5'5" SpO2: 95% Weight: 156 lbs 08/21/2016 Blood Pressure 1: 166/80 Code: 8480-6 BMI: 25.8 Code: 90170-2 Heart Rate 1: 105 bpm Height: 5'5" SpO2: 95% Weight: 155 lbs 05/28/2016 Blood Pressure 1: 142/74 Code: 8480-6 BMI: 25.3 Code: 12000-5 Heart Rate 1: 104 bpm Height: 5'5" SpO2: 96% Weight: 152 lbs 02/28/2016 Blood Pressure 1: 130/70 Code: 8480-6 BMI: 26.0 Code: 29068-3 Heart Rate 1: 100 bpm Height: 5'5" SpO2: 96% Weight: 156 lbs 11/29/2015 Blood Pressure 1: 130/70 Code: 8480-6 BMI: 25.5 Code: 64494-5 Heart Rate 1: 86 bpm Height: 5'5" [...] data Encounters Encounter Performer Location Codes Date ([id number]) 28337 EST. PATIENT, LEVEL IV Diagnosis: Essential (primary) hypertension[ICD10: I10] Diagnosis: Generalized anxiety disorder[ICD10: F41.1] Diagnosis: Pneumonia, unspecified organism[ICD10: J18.9] Diagnosis: Urinary tract infection, site not specified[ICD10: N39.0] Morenita Davenport MD, [facility] CPT-4: 52328 09/26/2018 ([id number]) 92674 EST. PATIENT, LEVEL IV Diagnosis: Slow transit constipation[ICD10: K59.01] Diagnosis: Generalized anxiety disorder[ICD10: F41.1] Diagnosis: Essential (primary) hypertension[ICD10: I10] Morenita Davenport MD, [facility] CPT-4: 21955 05/26/2018 ([id number]) 62441 EST. PATIENT, LEVEL IV Diagnosis: Essential (primary) hypertension[ICD10: I10] Diagnosis: Generalized anxiety disorder[ICD10: F41.1] Diagnosis: Other insomnia[ICD10: G47.09] Morenita Davenport MD, [facility] CPT-4: 87037 04/24/2018 ([id number]) 18376 EST. PATIENT, LEVEL IV Diagnosis: Essential (primary) hypertension[ICD10: I10] Diagnosis: Generalized anxiety disorder[ICD10: F41.1] Diagnosis: Major depressive disorder, recurrent, mild[ICD10: F33.0] Diagnosis: Unsteadiness on feet[ICD10: R26.81] Morenita Davenport MD, [facility] CPT-4: 95104 12/31/2017 [id number] EST. PATIENT, LEVEL IV Diagnosis: Essential (primary) hypertension[ICD10: I10] Diagnosis: Hypoxemia[ICD10: R09.02] Diagnosis: Sleep related hypoventilation in conditions classified elsewhere[ICD10: G47.36] Tia Davenport MD, [facility] CPT-4: 39899 10/29/2017 ([id number]) 16217 EST. PATIENT, LEVEL IV Diagnosis: Essential (primary) hypertension[ICD10: I10] Diagnosis: Generalized anxiety disorder[ICD10: F41.1] Diagnosis: Major depressive disorder, recurrent, mild[ICD10: F33.0] Morenita Davenport MD, [facility] CPT-4: 49482 02/01/2017 ([id number]) 29742 EST. PATIENT, LEVEL IV Diagnosis: Essential (primary) hypertension[ICD10: I10] Diagnosis: Generalized anxiety disorder[ICD10: F41.1] Diagnosis: Major depressive disorder, recurrent, mild[ICD10: F33.0] Morenita Davenport MD, [facility] CPT-4: 00979 08/21/2016 ([id number]) 19569 EST. PATIENT, LEVEL IV Diagnosis: Generalized anxiety disorder[ICD10: F41.1] Diagnosis: Essential (primary) hypertension[ICD10: I10] Diagnosis: Gastro-esophageal reflux disease without esophagitis[ICD10: K21.9] Morenita Davenport MD, [facility] CPT-4: 45112 05/28/2016 ([id number]) 29045 EST. PATIENT, LEVEL IV Diagnosis: Generalized anxiety disorder[ICD10: F41.1] Diagnosis: Major depressive disorder, recurrent, mild[ICD10: F33.0] Diagnosis: Essential (primary) hypertension[ICD10: I10] Morenita Davenport MD, [facility] CPT-4: 80837 02/28/2016 ([id number]) OFFICE VISIT, NEW - LEVEL 4 Diagnosis: Essential (primary) hypertension[ICD10: I10] Diagnosis: Generalized anxiety disorder[ICD10: F41.1] Diagnosis: Mixed hyperlipidemia[ICD10: E78.2] Diagnosis: Major depressive disorder, recurrent, mild[ICD10: F33.0] [facility] CPT-4: 75573 11/29/2015 Plan of Care Planned Activity Notes [...] treat with diflucan weekly x 1 month Rjwxhzahf-wsvxnhtz-lgqu to use oxygen prn Chronic Depression and anxiety - the pt has symptoms of chronic anxiety and depression that have been fairly well controlled since the last office visit. The pt has expected periods of exacerbation with abatement of the symptoms with change in situational exposure. No change in current medications. 09/26/2018 Appointment: Morenita Don WPtel: [facility] [phone] (15 min) Moderate 09/26/2018 Patient Education: Patient Medication Summary Completed 09/26/2018 Patient Education: Hypertension Completed 09/26/2018 Appointment: Morenita Don WPtel: [facility] [phone] (30 min) Complex 09/08/2018 Visit Plan: Constipation [...] at home. 05/26/2018 Appointment: Morenita Don WPtel: [facility] [place] [place] [phone] (15 min) Moderate 05/26/2018 Patient Education: Patient [...] 6mg as needed 04/24/2018 Appointment: Morenita Dontel: [address] [place], [place] [phone] (30 min) Complex 04/24/2018 Patient Education: Patient Medication Summary Completed 04/24/2018 Patient Education: Hypertension Completed 04/24/2018 Appointment: Morenita Don WPtel: [address] [place], [place] [phone] (30 min) Complex 04/17/2018 Appointment: Morenita Don WPtel: [address] [place], [place] [phone] (15 min) Moderate 04/04/2018 Appointment: Morenita Don WPtel: [address] [place], [place] [phone] (15 min) Moderate 03/06/2018 Appointment: Moreinta Don WPtel: [address] [place], [place] [phone] (15 min) Moderate 01/31/2018 Visit Plan: Hypertension [...] understanding. 12/31/2017 Appointment: Morenita Don WPtel: [phone] [phone] (30 min) Complex 12/31/2017 Patient Education: Patient [...] or concerns. 10/29/2017 Appointment: Tia Hernandez WPtel: [facility] [phone] (30 min) Complex 10/29/2017 Patient Education: Patient Medication Summary Completed 10/29/2017 Appointment: Morenita Don WPtel: [phone] [phone] (30 min) Complex 08/20/2017 Visit Plan: Hypertension [...] pt is to call for acute concerns. Eepxicx-biuukiiuwe-ifpcjupna patient get rid of house guest-he is taking advantage of her and causing her undue stress and worry. Increase clonazepam to TID prn-follow up in 2 weeks. 02/01/2017 Appointment: Morenita Don WPtel: [phone] [phone] (15 min) Moderate 02/01/2017 Patient Education: Patient [...] pt is to call for acute concerns. Wdextpn-ucfcojzntt-bwm well controlled-add deplin-continue lexapro Patient has not had recent labs-will send orders for fasting labs 08/21/2016 Appointment: Morenita Don WPtel: [phone] [phone] (15 min) Moderate 08/21/2016 Patient Education: Patient [...] any worse 05/28/2016 Appointment: Morenita Don WPtel: [phone] [phone] (15 min) Moderate 05/28/2016 Patient Education: Patient [...] at home. 02/28/2016 [phone] (30 min) Complex 02/28/2016 Patient Education: Patient [...] response to medications. 11/29/2015 Appointment: ArianMorenita WPtel: [facility] [phone] [place] New Patient 11/29/2015 Patient Education: Patient [...] increase effectiveness of lexapro: Recommend filling at [facility] in [place] due to affordability. . Hypertension - uncontrolled [...] pt is to call for acute concerns. Tdbgckd-lrkdyvzojg-fnk well controlled-add deplin-continue lexapro Patient has not [...] pt is to call for acute concerns. Ikhrwtf-drzvsojbmk-knmicgsls patient get rid of house guest-he is [...] treat with diflucan weekly x 1 month Rwcbaqzcl-jedzptui-sosl to use oxygen prn Chronic Depression and anxiety - the pt has symptoms of chronic anxiety and depression that have been fairly well controlled since the last office visit. The pt has expected periods of exacerbation with abatement of the symptoms with change in situational exposure. No change in current medications.
[2018-11-21] MEDS ORDERED: ONDANSETRON 4 MG/2 ML (SDV) Z0FRAN IV PRN (18:00)
[2018-11-21] MEDS ORDERED: CATHETER FLUSH 10 ML SYR IV PRN (18:00)
--- OUTSIDE RECORDS SUMMARY | 2018-11-21 18:15 | XMS REPORT | Continuity of Care Document ---
Demographics Preferred Language Unknown Marital Status Unknown Restoration Affiliation Unknown Race Unknown Ethnic Group Unknown Author Organization Unknown Address Unknown Allergies Active Description Code Type Severity Reaction Onset Reported/Identified Relationship to Patient Clinical Status Yes PENICILLINS UNKNOWN UNKNOWN Yes Penicillins [id number] Drug Allergy Severe EDEMA 04/13/2018 Medications Medication [...] CURRY DOI Ot E78.5 HYPERLIPIDEMIA, UNSPECIFIED 10/24/2015 MAYI DELGADILLO NELSON Ot F32.9 MAJOR DEPRESSIVE DISORDER, SINGLE EPISOD 10/24/2015 MAYI DELGADILLO NELSON Ot F41.9 ANXIETY DISORDER, UNSPECIFIED 10/24/2015 AMYI DELGADILLO NELSON Ot I10 ESSENTIAL (PRIMARY) HYPERTENSION 10/24/2015 MAYI DELGADILLO NELSON Ot I63.9 CEREBRAL INFARCTION, UNSPECIFIED 10/24/2015 MAYI DELGADILLO NELSON Ot K21.9 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 10/24/2015 MAYI DELGADILLO NELSON Ot R13.10 DYSPHAGIA, UNSPECIFIED 10/24/2015 MAYI DELGADILLO NELSON Ot R25.9 UNSPECIFIED ABNORMAL INVOLUNTARY MOVEMEN 10/24/2015 MAYI DELGADILLO NELSON Ot R41.0 DISORIENTATION, UNSPECIFIED 10/24/2015 MAYI DELGADILLO NELSON Ot 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 10/24/2015 MAYI DELGADILLO NELSON Ot R56.9 UNSPECIFIED CONVULSIONS 10/24/2015 MAYI DELGADILLO NELSON Ot Z86.718 PERSONAL HISTORY OF OTHER VENOUS THROMBO 10/24/2015 MAYI DELGADILLO NELSON Ot Z91.81 HISTORY OF FALLING [...] Ot D64.9 ANEMIA, UNSPECIFIED 10/30/2016 GEORGE TEIXEIRA HEALTH EQUIPMENT SERVICER Ot D72.819 DECREASED WHITE BLOOD CELL COUNT, UNSPEC 11/23/2016 GEORGE TEIXEIRA HEALTH EQUIPMENT SERVICER Ot D64.9 ANEMIA, UNSPECIFIED 11/23/2016 GEORGE TEIXEIRA HEALTH EQUIPMENT SERVICER Ot D72.819 DECREASED WHITE BLOOD CELL COUNT, [...] MD Ot V58.61 ANTICOAGULANTS,LT,CURRENT USE 08/09/2017 ARIAN SALINSA MD Ot V58.83 ENCOUNTER FOR THERAPEUTIC DRUG [...] CONTUSION OF RIGHT HIP, INITIAL ENCOUNTE 08/13/2017 HSELLIE OLIVIER MD Ot S80.01XA CONTUSION OF RIGHT KNEE, INITIAL ENCOUNT 08/13/2017 SHELLIE OLIVIER MD Ot W01.190A FALL SAME LEV FROM SLIP/TRIP W STRIKE AG 08/13/2017 SHELLIE OLIVIER MD Ot W18.39XA OTHER FALL ON SAME LEVEL, INITIAL ENCOUN 08/13/2017 SHELLIE OLIVIER MD Ot Y92.000 KITCHEN OF [facility] NON-INSTITUT (PRIVATE) R 08/13/2017 SHELLIE OLIVIER MD Ot Y92.003 BEDROOM OF [facility] NON-INSTITUT (PRIVATE) R 08/13/2017 SHELLIE OLIVIER [...] SHELLIE OLIVIER MD Ot Y92.000 KITCHEN OF [facility] NON-INSTITUT (PRIVATE) R 08/13/2017 SHELLIE OLIVIER MD Ot Y92.003 BEDROOM OF [facility]-INSTITUT (PRIVATE) R 08/13/2017 SHELLIE OLIVIER MD [...] Ot E87.1 HYPO-OSMOLALITY AND HYPONATREMIA 04/17/2018 SHELLIE LOIVIER MD Ot F03.90 UNSPECIFIED DEMENTIA WITHOUT BEHAVIORAL [...] Z99.3 DEPENDENCE ON WHEELCHAIR 09/19/2018 PRIETO, JAE HEALTH EQUIPMENT SERVICER Ot E78.00 PURE HYPERCHOLESTEROLEMIA, UNSPECIFIED 09/19/2018 PRIETO, JAE HEALTH EQUIPMENT SERVICER Ot F03.90 UNSPECIFIED DEMENTIA WITHOUT BEHAVIORAL 09/19/2018 PRIETO, JAE HEALTH EQUIPMENT SERVICER Ot F32.9 MAJOR DEPRESSIVE DISORDER, SINGLE EPISOD 09/19/2018 PRIETO, JAE HEALTH EQUIPMENT SERVICER Ot F41.9 ANXIETY DISORDER, UNSPECIFIED 09/19/2018 PRIETO, JAE HEALTH EQUIPMENT SERVICER Ot I10 ESSENTIAL (PRIMARY) HYPERTENSION 09/19/2018 PRIETO, JAE HEALTH EQUIPMENT SERVICER Ot 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 09/19/2018 PRIETO, JAE HEALTH EQUIPMENT SERVICER Ot N39.0 URINARY TRACT INFECTION, SITE NOT SPECIF 09/19/2018 PRIETO, JAE HEALTH EQUIPMENT SERVICER Ot R41.82 ALTERED MENTAL STATUS, UNSPECIFIED 09/19/2018 PRIETO, JAE HEALTH EQUIPMENT SERVICER Ot Z82.49 FAMILY HX OF ISCHEM HEART DIS AND OTH DI 09/19/2018 PRIETO JAE HEALTH EQUIPMENT SERVICER Ot Z86.718 PERSONAL HISTORY OF OTHER VENOUS [...] F41.9 ANXIETY DISORDER, UNSPECIFIED 09/24/2018 PRIETO, JAE HEALTH EQUIPMENT SERVICER Ot I10 ESSENTIAL (PRIMARY) HYPERTENSION 09/24/2018 PRIETO, JAE HEALTH EQUIPMENT SERVICER Ot 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 09/24/2018 PRIETO, JAE HEALTH EQUIPMENT SERVICER Ot N39.0 URINARY TRACT INFECTION, SITE NOT SPECIF 09/24/2018 PRIETO, JAE HEALTH EQUIPMENT SERVICER Ot R41.82 ALTERED MENTAL STATUS, UNSPECIFIED 09/24/2018 PRIETO, JAE HEALTH EQUIPMENT SERVICER Ot Z82.49 FAMILY HX OF ISCHEM HEART DIS AND OTH DI 09/24/2018 PRIETO, JAE HEALTH EQUIPMENT SERVICER Ot Z86.718 PERSONAL HISTORY OF OTHER VENOUS THROMBO 09/24/2018 PRIETO, JAE HEALTH EQUIPMENT SERVICER Ot Z87.440 PERSONAL HISTORY OF URINARY (TRACT) INFE 09/24/2018 PRIETO, JAE HEALTH EQUIPMENT SERVICER Ot Z88.0 ALLERGY STATUS TO PENICILLIN 09/24/2018 PRIETO, JAE HEALTH EQUIPMENT SERVICER Ot Z98.890 OTHER SPECIFIED POSTPROCEDURAL STATES 09/27/2018 PRIETO, JAE HEALTH EQUIPMENT SERVICER Ot E78.00 PURE HYPERCHOLESTEROLEMIA, UNSPECIFIED 09/27/2018 PRIETO, JAE HEALTH EQUIPMENT SERVICER Ot F03.90 UNSPECIFIED DEMENTIA WITHOUT BEHAVIORAL 09/27/2018 PRIETO, JAE HEALTH EQUIPMENT SERVICER Ot F32.9 MAJOR DEPRESSIVE DISORDER, SINGLE EPISOD 09/27/2018 PRIETO, JAE HEALTH EQUIPMENT SERVICER Ot F41.9 ANXIETY DISORDER, UNSPECIFIED 09/27/2018 PRIETO, JAE HEALTH EQUIPMENT SERVICER Ot I10 ESSENTIAL (PRIMARY) HYPERTENSION 09/27/2018 PRIETO, JAE HEALTH EQUIPMENT SERVICER Ot 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 09/27/2018 PRIETO, JAE HEALTH EQUIPMENT SERVICER Ot N39.0 URINARY TRACT INFECTION, SITE NOT SPECIF 09/27/2018 PRIETO, JAE HEALTH EQUIPMENT SERVICER Ot R41.82 ALTERED MENTAL STATUS, UNSPECIFIED 09/27/2018 PRIETO, JAE HEALTH EQUIPMENT SERVICER Ot Z82.49 FAMILY HX OF ISCHEM HEART DIS AND OTH DI 09/27/2018 PRIETO, JAE HEALTH EQUIPMENT SERVICER Ot Z86.718 PERSONAL HISTORY OF OTHER VENOUS THROMBO 09/27/2018 PRIETO, JAE HEALTH EQUIPMENT SERVICER Ot Z87.440 PERSONAL HISTORY OF URINARY (TRACT) INFE 09/27/2018 PRIETO, JAE HEALTH EQUIPMENT SERVICER Ot Z88.0 ALLERGY STATUS TO PENICILLIN 09/27/2018 PRIETO, JAE HEALTH EQUIPMENT SERVICER Ot Z98.890 OTHER SPECIFIED POSTPROCEDURAL STATES 10/11/2018 ARIELA WALLS APRN Ot E78.00 PURE HYPERCHOLESTEROLEMIA, UNSPECIFIED 10/11/2018 ARIELA WALLS MANAGER GYN Ot F03.90 UNSPECIFIED DEMENTIA WITHOUT BEHAVIORAL 10/11/2018 [...] F41.9 ANXIETY DISORDER, UNSPECIFIED 10/14/2018 ARIELA WALLS MANAGER GYN Ot I10 ESSENTIAL (PRIMARY) HYPERTENSION 10/14/2018 ARIELA WALLS MANAGER GYN Ot N39.0 URINARY TRACT INFECTION, SITE NOT SPECIF 10/14/2018 ARIELA WALLS APRN Ot R41.0 DISORIENTATION, UNSPECIFIED 10/14/2018 ARIELA WALLS MANAGER GYN Ot R41.82 ALTERED MENTAL STATUS, UNSPECIFIED 10/14/2018 ARIELA WALLS MANAGER GYN Ot Z82.49 FAMILY HX OF ISCHEM HEART DIS AND OTH DI 10/14/2018 ARIELA WALLS MANAGER GYN Ot Z86.718 PERSONAL HISTORY OF OTHER VENOUS THROMBO 10/14/2018 ARIELA WALLS MANAGER GYN Ot Z88.0 ALLERGY STATUS TO PENICILLIN 11/21/2018 JERSON BOWLES MD Ot B96.89 OTH BACTERIAL AGENTS THE CAUSE OF DIS 11/21/2018 JERSON BOWLES MD Ot E78.00 PURE HYPERCHOLESTEROLEMIA, UNSPECIFIED 11/21/2018 JERSON BOWLES MD Ot F03.90 UNSPECIFIED DEMENTIA WITHOUT BEHAVIORAL 11/21/2018 JERSON BOWLES MD Ot F32.9 MAJOR DEPRESSIVE DISORDER, SINGLE EPISOD 11/21/2018 JERSON BOWLES MD, Ot F41.9 ANXIETY DISORDER, UNSPECIFIED 11/21/2018 JERSON BOLWES MD Ot I10 ESSENTIAL (PRIMARY) HYPERTENSION 11/21/2018 JERSON BOWLES MD, Ot 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 11/21/2018 JERSON BOWLES MD, Ot R19.7 DIARRHEA, UNSPECIFIED 11/21/2018 JERSON BOWLES MD Ot Z82.49 FAMILY HX OF ISCHEM HEART DIS AND OTH DI 11/21/2018 JERSON BOWLES MD, Ot Z86.718 PERSONAL HISTORY OF OTHER VENOUS THROMBO 11/21/2018 JERSON BOWLES MD, Ot Z87.440 PERSONAL HISTORY OF URINARY (TRACT) INFE 11/21/2018 JERSON BOWLES MD, Ot Z88.0 ALLERGY STATUS TO PENICILLIN Procedures Code Description Performed By Performed On 79.15 CLOSED RED-INT FIX FEMUR 01/16/2013 [id number] INSERTION OF INFUSION DEV INTO SUP VENA [...] FOR INFLUENZA A AND B ANTIGENS BY [facility] Comprehensive metabolic panel - 08/08/17 22:35 Serum [...] calculation of estimated glomerular filtration rate > [facility] Serum or plasma glucose measurement (mass/volume) 118 [...] culture - 04/13/18 06:45 Bacterial blood culture [facility] Complete blood count (CBC) with automated white [...] INFLUENZA A AND B ANTIGENS BY IA [facility] Automated blood complete blood count [...] NRG Blood erythrocyte morphology finding identification NORMAL [facility] Comprehensive metabolic panel - 08/29/18 [...] or plasma urea nitrogen/creatinine mass ratio 18 NR Serum or plasma creatinine measurement with calculation of estimated glomerular filtration rate > [facility] Serum or plasma glucose measurement (mass/volume) 117 [...] culture - 08/29/18 12:36 Bacterial blood culture [facility] Complete blood count (CBC) with automated white [...] culture - 09/19/18 15:00 Bacterial blood culture NRG Complete urinalysis with reflex to culture [...] culture - 10/11/18 17:33 Bacterial urine culture [id number] NRG COLONY COUNT 50,000 CFU/ML NRG FTX;REPORTABLE AMENDED REPORT SENT 10/13/18 13:05 NRG Complete blood count (CBC) with automated white blood cell (WBC) differential - 11/15/18 09:55 Blood leukocytes automated count (number/volume) 9.1 10*3/uL 4.3-11.0 Blood erythrocytes automated count (number/volume) 4.60 10*6/uL 4.35-5.85 Venous blood hemoglobin measurement (mass/volume) 12.7 g/dL 11.5-16.0 Blood hematocrit (volume fraction) 41 % 35-52 Automated erythrocyte mean corpuscular volume 89 [foz_us] 80-99 Automated erythrocyte mean corpuscular hemoglobin (mass per erythrocyte) 28 pg 25-34 Automated erythrocyte mean corpuscular hemoglobin concentration measurement (mass/volume) 31 g/dL 32-36 Automated erythrocyte distribution width ratio 15.6 % 10.0- 14.5 Automated blood platelet count (count/volume) 114 10*3/uL 130-400 Automated blood platelet mean volume measurement 10.3 [foz_us] 7.4-10.4 Automated blood neutrophils/100 leukocytes 72 % 42-75 Automated blood lymphocytes/100 leukocytes 15 % 12-44 Blood monocytes/100 leukocytes 9 % 0-12 Automated blood eosinophils/100 leukocytes 3 % 0-10 Automated blood basophils/100 leukocytes 0 % 0-10 Blood neutrophils automated count (number/volume) 6.6 10*3 1.8-7.8 Blood lymphocytes automated count (number/volume) 1.4 10*3 1.0-4.0 Blood monocytes automated count (number/volume) 0.8 10*3 0.0- 1.0 Automated eosinophil count 0.3 10*3/uL 0.0-0.3 Automated blood basophil count (count/volume) 0.0 10*3/uL 0.0-0.1 Comprehensive metabolic panel - 11/15/18 09:55 Serum or plasma sodium measurement (moles/volume) 140 mmol/L 135-145 Serum or plasma potassium measurement (moles/volume) 4.5 mmol/L 3.6-5.0 Serum or plasma chloride measurement (moles/volume) 102 mmol/L 98-107 Carbon dioxide 29 mmol/L 21-32 Serum or plasma anion gap determination (moles/volume) 9 mmol/L 5-14 Serum or plasma urea nitrogen measurement (mass/volume) 12 mg/dL 7-18 Serum or plasma creatinine measurement (mass/volume) 0.77 mg/dL 0.60-1.30 Serum or plasma urea nitrogen/creatinine mass ratio 16 NRG Serum or plasma creatinine measurement with calculation of estimated glomerular filtration rate > NRG Serum or plasma glucose measurement (mass/volume) 82 mg/dL 70-105 Serum or plasma calcium measurement (mass/volume) 9.5 mg/dL 8.5-10.1 Serum or plasma total bilirubin measurement (mass/volume) 0.4 mg/dL 0.1-1.0 Serum or plasma alkaline phosphatase measurement (enzymatic activity/volume) 68 U/L 40-136 Serum or plasma aspartate aminotransferase measurement (enzymatic activity/volume) 16 U/L 5-34 Serum or plasma alanine aminotransferase measurement (enzymatic activity/volume) 6 U/L 0-55 Serum or plasma protein measurement (mass/volume) 5.8 g/dL 6.4-8.2 Serum or plasma albumin measurement (mass/volume) 2.9 g/dL 3.2-4.5 CALCIUM CORRECTED 10.4 mg/dL 8.5-10.1 Serum or plasma C reactive protein measurement (mass/volume) - 11/15/18 09:55 Serum or plasma C reactive protein measurement (mass/volume) 0.43 mg/dL 0.00-0.50 C DIFFICILE AG + TOXIN A/B. - 11/15/18 10:53 RESULTS NEGATIVE FOR ANTIGEN AND TOXIN A/B NRG Stool bacteria identification by culture - 11/15/18 10:53 Complete blood count (CBC) with automated white blood cell (WBC) differential - 11/21/18 12:11 Blood leukocytes automated count (number/volume) 10.3 10*3/uL 4.3-11.0 Blood erythrocytes automated count (number/volume) 4.37 10*6/uL 4.35-5.85 Venous blood hemoglobin measurement (mass/volume) 12.3 g/dL 11.5-16.0 Blood hematocrit (volume fraction) 39 % 35-52 Automated erythrocyte mean corpuscular volume 88 [foz_us] 80-99 Automated erythrocyte mean corpuscular hemoglobin (mass per erythrocyte) 28 pg 25-34 Automated erythrocyte mean corpuscular hemoglobin concentration measurement (mass/volume) 32 g/dL 32-36 Automated erythrocyte distribution width ratio 15.7 % 10.0- 14.5 Automated blood platelet count (count/volume) 274 10*3/uL 130-400 Automated blood platelet mean volume measurement 10.9 [foz_us] 7.4-10.4 Automated blood neutrophils/100 leukocytes 74 % 42-75 Automated blood lymphocytes/100 leukocytes 16 % 12-44 Blood monocytes/100 leukocytes 8 % 0-12 Automated blood eosinophils/100 leukocytes 1 % 0-10 Automated blood basophils/100 leukocytes 0 % 0-10 Blood neutrophils automated count (number/volume) 7.7 10*3 1.8-7.8 Blood lymphocytes automated count (number/volume) 1.7 10*3 1.0-4.0 Blood monocytes automated count (number/volume) 0.9 10*3 0.0- 1.0 Automated eosinophil count 0.1 10*3/uL 0.0-0.3 Automated blood basophil count (count/volume) 0.0 10*3/uL 0.0-0.1 Complete urinalysis with reflex to culture - 11/21/18 12:47 Urine color determination YELLOW NRG Urine clarity determination SLIGHTLY CLOUDY NRG Urine pH measurement by test strip 6 5-9 Specific gravity of urine by test strip 1.020 1.016-1.022 Urine protein assay by test strip, [...] detection in urine sediment by light microscopy TRACE NRG Squamous epithelial cells detection in urine sediment by light microscopy RARE NRG Crystals detection in urine sediment by light microscopy NONE NRG Casts detection in urine sediment by light microscopy NONE NRG Mucus detection in urine sediment by light microscopy NEGATIVE NRG Complete urinalysis with reflex to culture YES NR Comprehensive metabolic panel - 11/21/18 12:50 Serum or plasma sodium measurement (moles/volume) 139 mmol/L 135-145 Serum or plasma potassium measurement (moles/volume) 3.8 mmol/L 3.6-5.0 Serum or plasma chloride measurement (moles/volume) 105 mmol/L 98-107 Carbon dioxide 25 mmol/L 21-32 Serum or plasma anion gap determination (moles/volume) 9 mmol/L 5-14 Serum or plasma urea nitrogen measurement (mass/volume) 10 mg/dL 7-18 Serum or plasma creatinine measurement (mass/volume) 0.69 mg/dL 0.60-1.30 Serum or plasma urea nitrogen/creatinine mass ratio 14 NRG Serum or plasma creatinine measurement with calculation of estimated glomerular filtration rate > NRG Serum or plasma glucose measurement (mass/volume) 97 mg/dL 70-105 Serum or plasma calcium measurement (mass/volume) 9.2 mg/dL 8.5-10.1 Serum or plasma total bilirubin measurement (mass/volume) 0.2 mg/dL 0.1-1.0 Serum or plasma alkaline phosphatase measurement (enzymatic activity/volume) 61 U/L 40-136 Serum or plasma aspartate aminotransferase measurement (enzymatic activity/volume) 11 U/L 5-34 Serum or plasma alanine aminotransferase measurement (enzymatic activity/volume) < U/L 0-55 Serum or plasma protein measurement (mass/volume) 5.5 g/dL 6.4-8.2 Serum or plasma albumin measurement (mass/volume) 2.8 g/dL 3.2-4.5 CALCIUM CORRECTED 10.2 mg/dL 8.5-10.1 Magnesium - 11/21/18 12:50 Magnesium 1.2 mg/dL 1.8-2.4 Encounters ACCT No. Visit Date/Time Discharge Status Pt. Type Provider Facility Loc./Unit Complaint [id number] 09/19/2018 18:37:00 Document Registration [id number] 09/19/2018 17:23:00 09/22/2018 12:00:00 [id number] 09/19/2018 17:48:38 Document Registration [id number] 11/15/2018 09:14:00 11/15/2018 12:00:00 DIS Outpatient JERSON BOWLES MD Via [facility] ER DIARRHEA X 2 WEEKS [id number] 10/11/2018 16:55:00 10/11/2018 19:10:00 DIS Emergency ARIELA WALLS APRN Via [facility] ER CONFUSION [id number] 09/19/2018 14:50:00 09/19/2018 18:07:00 DIS Emergency JAE MOREAU Via [facility] ER FEVER;AMS [id number] 08/29/2018 13:55:00 09/01/2018 10:50:00 DIS Inpatient SHELLIE OLIVIER MD Via [facility] 4TH ANXIETY,UTI,FEVER [id number] 04/13/2018 11:49:00 04/17/2018 16:55:00 DIS Outpatient SHELLIE OLIVIER MD Via [facility] 4TH UTI,SEPSIS [id number] 08/09/2017 00:01:00 08/13/2017 11:35:00 DIS Inpatient SHELLIE OLIVIER MD Via [facility] 4TH SEPSIS,FEVER,HYPOXIA,S/P FALL, R PELVIS FX,AMS [id number] 10/29/2016 08:14:00 10/29/2016 23:59:59 CLS Outpatient LLUVIA GEORGESHIRLEY ASHLEY Via [facility] LAB ELEVATED HCB LOW WBC [id number] 10/21/2015 09:11:00 10/24/2015 14:30:00 DIS Inpatient NELSON CURRY DO Via [facility] 4TH AMS [id number] 01/21/2015 15:19:00 01/21/2015 16:54:00 DIS Emergency JERSON BOWLES MD [facility] ER FALL/HEAD LAC [id number] 01/11/2015 12:43:00 01/21/2015 13:18:00 DIS Inpatient ARIAN SALINAS MD Via [address] SWB--UTI/ADVACING DEMENTIA [id number] 01/08/2015 08:50:00 01/11/2015 12:35:00 DIS Inpatient ARIAN SALINAS MD Via [address] ALTERED MENTAL STATUS;UNCONTROLLED HTN;UTI;HYPOMAG [id number] 10/18/2014 08:24:00 10/18/2014 13:54:00 DIS Emergency HIRAM CABA, AZALEA Lowe [facility] ER CONFUSION [id number] 04/15/2014 15:50:00 04/16/2014 17:35:00 DIS Inpatient ARIAN SALINAS MD Via [address] UTI [id number] 01/27/2014 14:23:00 01/29/2014 13:55:00 DIS Inpatient ARIAN SALINAS MD Via [address] MARKED ELECTROLYTE ABNORMALITIES,AMS [id number] 05/27/2013 12:00:00 05/27/2013 23:59:59 CLS Outpatient ARIAN SALINAS MD Via [facility] HIP FX, COUMADIN THERAPY [id number] 04/28/2013 11:30:00 04/28/2013 23:59:59 CLS Outpatient ARIAN SALINAS MD [facility] ANTICOAG THERAPY [id number] 04/08/2013 14:48:00 04/08/2013 23:59:59 CLS Outpatient [id number] 03/18/2013 13:59:00 03/18/2013 23:59:59 CLS Outpatient [id number] 02/18/2013 13:42:00 02/18/2013 23:59:59 CLS Outpatient [id number] 01/14/2013 19:30:00 01/22/2013 16:00:00 DIS Inpatient REVEAL MOSES CABA Via [facility] SURGICAL R HIP FX [id number] 11/21/2018 15:35:00 ACT Inpatient NELSON CURRY DO Via [facility] 4TH CONFUSION,UTI,HYPOMAGNESIUM,HTN
[2018-11-21] MEDS: cloNIDine 0.1 MG (CATAPRES) TAB PO PRN (18:28)
[2018-11-21] MEDS: MEROPENEM 500 MG/SWFI 10 ML IV PUSH IV SCH ×2 (18:28)
[2018-11-21] MEDS: FLUCONAZOLE 100 MG/50 ML IVPB IV SCH ×2 (18:29)
[2018-11-21] MEDS: MAGNESIUM 1 GM/D5W 100 ML IVPB IV SCH ×2 (18:29→18:33)
[2018-11-21 20:20] VITALS: BP 168/84
[2018-11-21] MEDS: CATHETER FLUSH 10 ML SYR IV SCH (22:00)
[2018-11-22] VITALS: BP 167/70
[2018-11-22] MEDS: MEROPENEM 500 MG/SWFI 10 ML IV PUSH IV SCH ×6 (01:50→17:25)
[2018-11-22 04:00] VITALS: BP 179/76
[2018-11-22 05:10] LABS: BASOPHILS % (AUTO) 0 % (0-10); EOSINOPHILS # (AUTO) 0.3 10^3/uL (0.0-0.3); EOSINOPHILS % (AUTO) 4 % (0-10); HEMATOCRIT 33 % (35-52); HEMOGLOBIN 10.6 G/DL (11.5-16.0); LYMPHOCYTES # (AUTO) 1.4 X 10^3 (1.0-4.0); LYMPHOCYTES % (AUTO) 18 % (12-44); MEAN CORPUSCULAR HEMOGLOBIN 28 PG (25-34); MEAN CORPUSCULAR HGB CONC 32 G/DL (32-36); MEAN CORPUSCULAR VOLUME 88 FL (80-99); MEAN PLATELET VOLUME 10.9 FL (7.4-10.4); MONOCYTES # (AUTO) 0.9 X 10^3 (0.0-1.0); MONOCYTES % (AUTO) 11 % (0-12); NEUTROPHILS # (AUTO) 5.2 X 10^3 (1.8-7.8); NEUTROPHILS % (AUTO) 67 % (42-75); PLATELET COUNT 220 10^3/uL (130-400); RED CELL DISTRIBUTION WIDTH 15.7 % (10.0-14.5); WHITE BLOOD COUNT 7.8 10^3/uL (4.3-11.0)
[2018-11-22 05:24] LABS: BUN/CREATININE RATIO 19; CALCIUM 9.2 MG/DL (8.5-10.1); CARBON DIOXIDE 26 MMOL/L (21-32); CHLORIDE 104 MMOL/L (98-107); CREATININE SERUM 0.64 MG/DL (0.60-1.30); GFR ESTIMATED > 60; GLUCOSE 95 MG/DL (70-105); MAGNESIUM 1.8 MG/DL (1.8-2.4); SODIUM 137 MMOL/L (135-145)
[2018-11-22] MEDS: CATHETER FLUSH 10 ML SYR IV SCH ×3 (06:46→21:43)
[2018-11-22 08:00] VITALS: BP 154/69
[2018-11-22] MEDS: amLODIPine 5 MG (NORVASC) TAB PO SCH (08:41)
[2018-11-22] MEDS: FLUCONAZOLE 100 MG/50 ML IVPB IV SCH ×2 (08:41)
--- NOTE | 2018-11-22 11:49 | History & Physical-Hospitalist ---
History of Present Illness HPI/Chief Complaint Chief complaint: UTI with confusion History of present illness: This is an 88-year-old white female clinic patient of Dr. Davenport with multiple hospital stays due to UTI and confusion who presented to the ER with the same complaints. Patient is now much more alert and denies any significant pain. 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 Patient appears to be much more decline since last seen and patient remains at home being cared for by family. No family is at the bedside at this current time. RN has no concerns. Source: patient Exam Limitations: no limitations Date Seen 11/22/18 Time Seen by a Provider: 11:00 Attending Physician Mahogany Curry Holly A MD Referring Physician Date of Admission Nov 21, 2018 at 15:35 Home Medications & Allergies Home Medications Reviewed patient Home Medication Reconciliation performed by pharmacy medication reconciliations veterinary laboratory technician and/or nursing. Patients Allergies have been reviewed. Allergies Allergies Coded Allergies Penicillins (Unverified Allergy, Severe, EDEMA, 04/13/18) Past Utpxmhh-Xcqvcr-Xalrdh Hx Past Med/Social Hx: Reviewed Nursing Past Med/Soc Hx, Reviewed and Corrections made Patient Social History Marrital Status: single Employed/Student: retired Alcohol Use: Denies Use Recreational Drug Use: No Smoking Status: Never a Smoker 2nd Hand Smoke Exposure: No Physical Abuse Screen: No Sexual Abuse: No Recent Foreign Travel: No Contact w/other who traveled: No Recent Hopitalizations: No Recent Infectious Disease Expo: No Immunizations Up To Date Tetanus Booster (TDap): Unknown Pediatric: No Date of Pneumonia Vaccine: Jan 27, 2014 Date of Influenza Vaccine: Jan 27, 2014 Seasonal Allergies Seasonal Allergies: No Past Medical History Surgeries: Eye Surgery, Gallbladder, Joint Replacement, Orthopedic Currently Using CPAP: No Currently Using BIPAP: No Cardiac: Deep Vein Thrombosis, High Cholesterol, Hypertension Neurological: Dementia : No Reproductive: No Genitourinary: UTI-Chronic Gastrointestinal: C-Diff Musculoskeletal: Degenerate Disk Disease, Osteoporosis, Arthritis, Fractures HEENT: Cataract Loss of Vision: Denies Hearing Impairment: Bilateral Hearing Aide Psychosocial: Anxiety, Depression History of Blood Disorders: No Adverse Reaction to Blood Chance: No Family History Myocardial infarction 19 MOTHER, Onset:60 years & older Heart Disease, Hypertension Review of Systems Constitutional: see HPI, malaise, weakness Physical Exam Physical Exam Vital Signs Vital Signs - First Documented Capillary Refill : NONELess Than 3 Seconds Height, Weight, BMI Height: 5'6.00" Weight: 132lbs. 0.0oz. 59.998796lt; 21.3 BMI Method:Stated General Appearance: No Apparent Distress, WD/WN, Chronically ill, Thin Eyes: Right Eye Normal Inspection, Right Eye PERRL HEENT: PERRL/EOMI, Normal ENT Inspection, Pharynx Normal, Moist Mucous Membranes Neck: Full Range of Motion, Normal Inspection, Non Tender Respiratory: Chest Non Tender, Lungs Clear, Normal Breath Sounds, No Accessory Muscle Use, No Respiratory Distress Cardiovascular: Regular Rate, Rhythm, No Edema, No Gallop, No JVD, No Murmur, Normal Peripheral Pulses Gastrointestinal: Normal Bowel Sounds, No Organomegaly, No Pulsatile Mass, Non Tender, Soft Back: Normal Inspection, No CVA Tenderness, No Vertebral Tenderness Extremity: Normal Capillary Refill, Normal Inspection, Normal Range of Motion, Non Tender, No Calf Tenderness, No Pedal Edema Neurologic/Psychiatric: Alert, No Motor/Sensory Deficits, Normal Mood/Affect, front office medical assistant II-XII Norm as Tested, Disoriented Skin: Normal Color, Warm/Dry Lymphatic: No Adenopathy Results Results/Procedures Labs Laboratory Tests 11/21/18 12:11 11/21/18 12:50 11/22/18 04:38 Patient resulted labs reviewed. Assessment/Plan Admission Diagnosis Assessment: Recurrent UTI high risk for ESBL placed on meropenem empirically History of yeast UTI placed on Diflucan empirically Acute on chronic C. difficile colitis placed on vancomycin by mouth Dementia Frail status Advanced age Anxiety Poor prognosis Plan: IV fluids Diflucan Meropenem Vanc Poor prognosis Admission Status: Inpatient Order (span 2 midnights) Reason for Inpatient Admission: Recurrent UTI likely ESBL and acute on chronic C. difficile colitis Diagnosis/Problems Diagnosis/Problems (1) Acute urinary tract infection Status: Acute (2) Confusion Status: Acute (3) Anxiety Status: Chronic (4) Dementia Status: Acute (5) Yeast UTI Status: Acute (6) Poor prognosis Status: Chronic (7) Advanced age Status: Chronic (8) Frailty Status: Chronic (9) Weakness Status: Acute Clinical Quality Measures DVT/VTE Risk/Contraindication: Risk Factor Score Per Nursin RFS Level Per Nursing on Admit: 4+=Very High AMHOGANY CURRY DO Nov 22, 2018 11:49
[2018-11-22 12:00] VITALS: BP 131/62
[2018-11-22] MEDS ORDERED: VANCOMYCIN ORAL SUSPENSION 60 ML BOTTLE PO SCH (12:45)
[2018-11-22] MEDS: VANCOMYCIN ORAL 250 MG/5 ML 120 ML PO SCH ×4 (15:16→21:00)
[2018-11-22 16:11] VITALS: BP 158/81
[2018-11-22 19:17] VITALS: BP 146/81
[2018-11-23 00:29] VITALS: BP 144/66
[2018-11-23] MEDS: MEROPENEM 500 MG/SWFI 10 ML IV PUSH IV SCH ×6 (02:34→18:34)
[2018-11-23] MEDS: VANCOMYCIN ORAL 250 MG/5 ML 120 ML PO SCH ×8 (02:34→19:58)
[2018-11-23 03:26] VITALS: BP 148/68
[2018-11-23 05:31] LABS: BASOPHILS % (AUTO) 0 % (0-10); EOSINOPHILS # (AUTO) 0.4 10^3/uL (0.0-0.3); EOSINOPHILS % (AUTO) 5 % (0-10); HEMATOCRIT 36 % (35-52); HEMOGLOBIN 11.5 G/DL (11.5-16.0); LYMPHOCYTES # (AUTO) 1.8 X 10^3 (1.0-4.0); LYMPHOCYTES % (AUTO) 25 % (12-44); MEAN CORPUSCULAR HEMOGLOBIN 28 PG (25-34); MEAN CORPUSCULAR HGB CONC 32 G/DL (32-36); MEAN CORPUSCULAR VOLUME 87 FL (80-99); MONOCYTES # (AUTO) 0.7 X 10^3 (0.0-1.0); MONOCYTES % (AUTO) 10 % (0-12); NEUTROPHILS # (AUTO) 4.2 X 10^3 (1.8-7.8); NEUTROPHILS % (AUTO) 59 % (42-75); PLATELET COUNT 252 10^3/uL (130-400); WHITE BLOOD COUNT 7.1 10^3/uL (4.3-11.0)
[2018-11-23] MEDS: CATHETER FLUSH 10 ML SYR IV SCH ×3 (05:47→19:59)
[2018-11-23 05:53] LABS: ALANINE AMINOTRANSFERASE 6 U/L (0-55); ALBUMIN 2.7 GM/DL (3.2-4.5); ALKALINE PHOSPHATASE 59 U/L (40-136); BILIRUBIN,TOTAL 0.3 MG/DL (0.1-1.0); BUN/CREATININE RATIO 15; CALCIUM 9.3 MG/DL (8.5-10.1); CARBON DIOXIDE 28 MMOL/L (21-32); CHLORIDE 102 MMOL/L (98-107); CREATININE SERUM 0.61 MG/DL (0.60-1.30); GFR ESTIMATED > 60; GLUCOSE 79 MG/DL (70-105); POTASSIUM 3.9 MMOL/L (3.6-5.0); SODIUM 139 MMOL/L (135-145); TOTAL PROTEIN 5.4 GM/DL (6.4-8.2)
[2018-11-23 08:00] VITALS: BP 124/62
[2018-11-23] MEDS: amLODIPine 5 MG (NORVASC) TAB PO SCH (08:54)
[2018-11-23] MEDS: FLUCONAZOLE 100 MG/50 ML IVPB IV SCH ×2 (08:54)
--- NOTE | 2018-11-23 11:27 | Progress Note - Hospitalist ---
Subjective HPI/CC On Admission Date Seen by Provider: Nov 23, 2018 Time Seen by Provider: 10:30 Chief complaint: UTI with confusion History of present illness: This is an 88-year-old white female clinic patient of Dr. Davenport with multiple hospital stays due to UTI and confusion who presented to the ER with the same complaints. Patient is now much more alert and denies any significant pain. 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 Patient appears to be much more decline since last seen and patient remains at home being cared for by family. No family is at the bedside at this current time. RN has no concerns. Subjective/Events-last exam Patient about the same Wants to go home every time I see her Checked meds and labs Cx pending Mcguire cath in place Review of Systems General: Fatigue Neurological: Confusion Objective Exam Vital Signs Vital Signs Date Time Temp Pulse Resp B/P (MAP) Pulse Ox O2 Delivery O2 Flow Rate FiO2 11/23/18 08:00 Room Air 11/23/18 08:00 97.2 74 18 124/62 (82) 93 Capillary Refill : Less Than 3 SecondsLess Than 3 Seconds General Appearance: No Apparent Distress, WD/WN, Chronically ill, Thin HEENT: PERRL/EOMI, Normal ENT Inspection, Pharynx Normal, Moist Mucous Membranes Neck: Full Range of Motion, Normal Inspection, Non Tender Respiratory: Chest Non Tender, Lungs Clear, Normal Breath Sounds, No Accessory Muscle Use, No Respiratory Distress Cardiovascular: Regular Rate, Rhythm, No Edema, No Gallop, No JVD, No Murmur, Normal Peripheral Pulses Gastrointestinal: Normal Bowel Sounds, No Organomegaly, No Pulsatile Mass, Non Tender, Soft Back: Normal Inspection, No CVA Tenderness, No Vertebral Tenderness Extremity: Normal Capillary Refill, Normal Inspection, Normal Range of Motion, Non Tender, No Calf Tenderness, No Pedal Edema Neurologic/Psychiatric: Alert, No Motor/Sensory Deficits, Normal 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 Assessment/Plan Assessment and Plan Assess & Plan/Chief Complaint Assessment: Recurrent UTI high risk for ESBL placed on meropenem empirically History of yeast UTI placed on Diflucan empirically Acute on chronic C. difficile colitis placed on vancomycin by mouth Dementia Frail status Advanced age Anxiety Poor prognosis Plan: IV fluids Diflucan Meropenem Vanc Poor prognosis Diagnosis/Problems Diagnosis/Problems (1) Acute urinary tract infection Status: Acute (2) Confusion Status: Acute (3) Anxiety Status: Chronic (4) Dementia Status: Acute (5) Yeast UTI Status: Acute (6) Poor prognosis Status: Chronic (7) Advanced age Status: Chronic (8) Frailty Status: Chronic (9) Weakness Status: Acute Clinical Quality Measures DVT/VTE Risk/Contraindication: Risk Factor Score Per Nursin RFS Level Per Nursing on Admit: 4+=Very High NELSON CURRY DO Nov 23, 2018 11:27
[2018-11-23] MEDS ORDERED: ENOXAPARIN 30 MG/0.3 ML (LOVENOX) SYR SC SCH (11:30)
[2018-11-23 12:00] VITALS: BP 174/77
[2018-11-23 15:35] VITALS: BP 170/75
[2018-11-23 19:30] VITALS: BP 161/79
[2018-11-23] MEDS: cloNIDine 0.1 MG (CATAPRES) TAB PO PRN (21:24)
[2018-11-24 00:06] VITALS: BP 158/69
[2018-11-24] MEDS: MEROPENEM 500 MG/SWFI 10 ML IV PUSH IV SCH ×4 (01:54→11:21)
[2018-11-24] MEDS: VANCOMYCIN ORAL 250 MG/5 ML 120 ML PO SCH ×4 (01:55→07:30)
[2018-11-24] MEDS: CATHETER FLUSH 10 ML SYR IV SCH (06:23)
[2018-11-24] MEDS: amLODIPine 5 MG (NORVASC) TAB PO SCH (07:30)
[2018-11-24] MEDS: FLUCONAZOLE 100 MG/50 ML IVPB IV SCH ×2 (07:30)
[2018-11-24 08:00] VITALS: BP 158/69
--- NOTE | 2018-11-24 09:15 | Discharge Summary ---
Diagnosis/Chief Complaint Date of Admission Nov 21, 2018 at 15:35 Date of Discharge Discharge Date: Nov 24, 2018 Discharge Time: 12:00 Admission Diagnosis Admission Diagnosis Recurrent UTI high risk for ESBL placed on meropenem empirically History of yeast UTI placed on Diflucan empirically Acute on chronic C. difficile colitis placed on vancomycin by mouth Dementia Frail status Advanced age Anxiety Poor prognosis Discharge Diagnosis URINARY TRACT INFECTION HYPERTENSION DEMENTIA ANXIETY ADVANCED AGE GENERAL DEBILITY Reason Hospital Visit This is an 88-year-old white female clinic patient of Dr. Davenport with multiple hospital stays due to UTI and confusion who presented to the ER with the same complaints. Patient is now much more alert and denies any significant pain. 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 Patient appears to be much more decline since last seen and patient remains at home being cared for by family. No family is at the bedside at this current time. RN has no concerns. Discharge Summary Discharge Physical Examination Allergies: Coded Allergies: Penicillins (Unverified Allergy, Severe, EDEMA, 04/13/18) Vitals & I&Os Vital Signs Date Time Temp Pulse Resp B/P (MAP) Pulse Ox O2 Delivery O2 Flow Rate FiO2 11/24/18 00:06 97.5 85 18 158/69 (98) 90 Room Air General Appearance: Alert, Oriented X3, Cooperative, No Acute Distress HEENT: Atraumatic, PERRLA, EOMI, Mucous Memb Moist/[place] Respiratory: Clear to Auscultation Cardiovascular: Regular Rate Abdominal: Normal Bowel Sounds, Soft, No Tenderness Extremities: No Clubbing, No Cyanosis Skin: No Rashes Neuro: Normal Speech, Cranial Nerves 3-12 NL Psych/Mental Status: Mental Status NL, Mood NL Hospital Course Was the Problem List Reviewed?: Yes URINARY TRACT INFECTION HYPERTENSION DEMENTIA ANXIETY ADVANCED AGE GENERAL DEBILITY URINARY TRACT INFECTION - HX OF RECURRENT INFECTIONS - PT WILL BE CONTINUED ON ANOTHER 7 DAYS OF ANTIBIOTICS WELL ANTIFUNGAL DUE TO HER ROBUST RECOVERY WITH IV ANTIBIOTICS AND ANTIFUNGALS - HER URINE DID NOT GROW OUT ANYTHING ON HER CULTURE -BUT DUE TO HER RESPONSE TO TREATMENT - WILL CONTINUE WITH TREATMENT. HTN - RESUME HOME REGIMEN - ADDED ADDITIONAL METOPROLOL AT HS. 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 ANXIETY - CONTINUE WITH CLONAZEPAM DISCHARGE TO HOME IN THE CARE OF HER FAMILY. Discharge Condition at discharge IMPROVED Instructions to patient/family Please see electronic discharge instructions given to patient. Discharge Medications Reviewed and agree with Discharge Medication list on patient's Discharge Instruction sheet Clinical Quality Measures DVT/VTE Risk/Contraindication: Risk Factor Score Per Nursin RFS Level Per Nursing on Admit: 4+=Very High SHELLIE DAVENPORT MD Nov 24, 2018 09:15
[2018-11-24] MEDS ORDERED: CEFD300C3 PO (09:20)
[2018-11-24] MEDS ORDERED: METO-387 PO (09:20)
[2018-11-24] MEDS ORDERED: FLUC100T PO (09:20)
--- NOTE | 2018-11-24 09:22 | Discharge Inst-Complex ---
PDI Med Rec & Follow Up Appt. New Medications: Fluconazole (Diflucan) 100 Mg Tablet 100 MG PO DAILY, #7 TAB Changed Medications: Metoprolol Succinate (Metoprolol Succinate) 25 Mg Tab.er.24h 25 MG PO BID, #60 TAB 6 Refills (Changed from: 0630; Refills: ) Continued Medications: Acetaminophen (Tylenol Extra Strength) 500 Mg Tablet 500 MG PO Q4H PRN for PAIN-MILD, TAB Amlodipine Besylate (Amlodipine Besylate) 10 Mg Tablet 10 MG PO 0630, TAB Bisacodyl (Bisacodyl) 5 Mg Tablet.dr 5 MG PO DAILY PRN for CONSTIPATION-4TH LINE, TAB Cefdinir (Cefdinir) 300 Mg Capsule 300 MG PO BID, #10 CAP 0 Refills (This prescription has been renewed) Cholecalciferol (Vitamin D3) (Vitamin D3) 1,000 Unit Capsule 2000 UNIT PO 1530, CAP TAKES 2 (1000 UNIT) CAPSULES Cholestyramine (with Sugar) (Cholestyramine Packet) 4 Gm Powd.pack 4 GM PO TID, #30 EACH 1 Refill Citalopram Hydrobromide (Citalopram HBr) 40 Mg Tablet 40 MG PO 1530, TAB Clonazepam (Clonazepam) 1 Mg Tablet 2 MG PO 0630, TAB TAKES 2 (1MG) TABLETS Clonazepam (Clonazepam) 1 Mg Tablet 1 MG PO 1530, TAB Cranberry Conc/Ascorbic Acid (Cranberry Plus Vitamin C Sftgl) 1 Each Capsule 2 CAP PO 1530, CAP Lisinopril (Lisinopril) 10 Mg Tablet 10 MG PO 0630, TAB Melatonin (Melatonin) 5 Mg Capsule 5 MG PO 1530, CAP Meloxicam (Meloxicam) 15 Mg Tablet 15 MG PO 0630, TAB Omeprazole (Omeprazole) 20 Mg Capsule.dr 20 MG PO 0630, CAP Pediatric Multivitamin Comb#30 (Gummies Children Multivitamin) 1 Each Tab.chew 2 TAB.CHEW PO HS, TAB Potassium Chloride (Potassium Chloride) 10 Meq Tablet.er 20 MEQ PO 0630, TAB TAKES 2 (10MEQ) TABLETS Risperidone (Risperdal) 0.25 Mg Tablet 0.25 MG PO evening, #5 TAB Discontinued Medications: Doxycycline Hyclate (Doxycycline Hyclate) 100 Mg Tablet 100 MG PO BID@07,17, #10 TAB Simvastatin (Simvastatin) 20 Mg Tablet 20 MG PO 1530, TAB Prescription: Transmitted to Pharmacy Patient Instructions: FOLLOW UP APPT WITH CHARLINE CRUZ 1 WK Activity, Diet and PDI Resume Normal Activity: Yes Discharge Diet: Regular Diet Drink 6-8 Glasses of Fluid/Day: Yes Return to The Hospital For: ANY CONCER FOR WORSENING CHEST PAIN, SHORTNESS OF BREATH, PERSISTENT NAUSEA, SYMPTOMS OF INFECTION OR LIFETHREATENING ILLNESS OR INJURY Symptoms to Reoprt to : Appetite Changes, Fever Over 101 Degrees F, P ain/Pressure in Chest, Diarrhea(Persistant) For Problems or Questions: Contact Your Physician, Go to Emergency Room Infection Signs and Symptoms: Temperature Above 101 F SHELLIE OLIVIER MD Nov 24, 2018 09:22
[2018-11-24] MEDS ORDERED: ENOXAPARIN 40 MG/0.4 ML (LOVENOX) SYR SC SCH (12:00)
--- NOTE | 2018-11-24 12:09 | NUR ---
Pt is Gnosticism. Cleaner provided prayer and Communion.
--- NOTE | 2018-11-24 14:22 | NUR ---
DC'D PER WC WITH DAUGHTER AND GRANDSON. RX REVIEWED AND VERBALIZED UNDERSTANDING. DTR REMINDED THAT CATHETER DC'D TODAY AND TO MONITOR URINE OUTPUT.
== END 2018-11-24 14:20 | disposition home or self-care (01) | DRG 758 ==
LOC: EDUNIT# 11:54 → ER 11:56 → 4TH 15:35
PROVIDERS: ADMIT Internal Medicine; ATTEND Internal Medicine
DX: B37.49 Other urogenital candidiasis (principal); N39.0 Urinary tract infection, site not specified; B96.89 Other specified bacterial agents as the cause of diseases classified elsewhere; A04.71 Enterocolitis due to Clostridium difficile, recurrent; R41.0 Disorientation, unspecified; I10 Essential (primary) hypertension; E78.00 Pure hypercholesterolemia, unspecified; Z66 Do not resuscitate; F03.90 Unspecified dementia, unspecified severity, without behavioral disturbance, psychotic disturbance, mood disturbance, and anxiety; M81.0 Age-related osteoporosis without current pathological fracture; M19.91 Primary osteoarthritis, unspecified site; Z97.4 Presence of external hearing-aid; F41.9 Anxiety disorder, unspecified; F32.9 Major depressive disorder, single episode, unspecified; E83.42 Hypomagnesemia; Z86.718 Personal history of other venous thrombosis and embolism; Z79.899 Other long term (current) drug therapy
CPT/HCPCS: 36415; 51702; 71045; 80048; 80053; 81000; 83735; 85025; 87088; 87324; 87449; 96365; 96375

== ENCOUNTER 2018-12-04 08:00 | Inpatient (IN) | payer MEDICARE ==
[~2018-12-04] VITALS: Ht 167.6 cm; Wt 59.9 kg
[~2018-12-04 08:00] MED LIST changes: +OMEP20CA13 PO
[2018-12-04 08:32] LABS: BASOPHILS % (AUTO) 0 % (0-10); EOSINOPHILS # (AUTO) 0.2 10^3/uL (0.0-0.3); EOSINOPHILS % (AUTO) 3 % (0-10); HEMATOCRIT 43 % (35-52); HEMOGLOBIN 14.2 G/DL (11.5-16.0); LYMPHOCYTES # (AUTO) 1.2 X 10^3 (1.0-4.0); LYMPHOCYTES % (AUTO) 17 % (12-44); MEAN CORPUSCULAR HEMOGLOBIN 28 PG (25-34); MEAN CORPUSCULAR HGB CONC 33 G/DL (32-36); MEAN CORPUSCULAR VOLUME 87 FL (80-99); MEAN PLATELET VOLUME 10.5 FL (7.4-10.4); MONOCYTES # (AUTO) 0.7 X 10^3 (0.0-1.0); MONOCYTES % (AUTO) 10 % (0-12); NEUTROPHILS # (AUTO) 5.2 X 10^3 (1.8-7.8); NEUTROPHILS % (AUTO) 71 % (42-75); PLATELET COUNT 383 10^3/uL (130-400); RED CELL DISTRIBUTION WIDTH 18.1 % (10.0-14.5); WHITE BLOOD COUNT 7.3 10^3/uL (4.3-11.0)
[2018-12-04 08:34] LABS: BILIRUBIN,URINE NEGATIVE (NEGATIVE); CLARITY,URINE VERY CLOUDY; COLOR,URINE YELLOW; GLUCOSE, URINE (UA) NEGATIVE (NEGATIVE); KETONES,URINE 2+ (NEGATIVE); LEUKOCYTE ESTERASE ,URINE 3+ (NEGATIVE); NITRITE,URINE POSITIVE (NEGATIVE); PH,URINE 6 (5-9); PROTEIN,URINE 3+ (NEGATIVE); UROBILINOGEN,URINE NORMAL (NORMAL)
[2018-12-04 08:43] LABS: BACTERIA,URINE LARGE /HPF; SQUAMOUS EPITHELIAL CELL,UR >50 /HPF; WBC,URINE TNTC /HPF
[2018-12-04 09:09] LABS: ALANINE AMINOTRANSFERASE 12 U/L (0-55); ALBUMIN 3.4 GM/DL (3.2-4.5); ALKALINE PHOSPHATASE 70 U/L (40-136); BILIRUBIN,TOTAL 0.4 MG/DL (0.1-1.0); BUN/CREATININE RATIO 17; CALCIUM 9.8 MG/DL (8.5-10.1); CARBON DIOXIDE 23 MMOL/L (21-32); CHLORIDE 102 MMOL/L (98-107); CREATININE SERUM 0.69 MG/DL (0.60-1.30); GFR ESTIMATED > 60; GLUCOSE 130 MG/DL (70-105); SODIUM 136 MMOL/L (135-145); TOTAL PROTEIN 6.7 GM/DL (6.4-8.2)
[2018-12-04] MEDS ORDERED: cefTRIAXone FOR IV USE 2,000 MG in WATER (STERILE) FOR INJECTION 20 ML IV ONE (09:30)
--- NOTE | 2018-12-04 09:46 | Diagnostic Imaging Report ---
Clinical indication: Caregiver reports noticing pupil dilation this morning. Patient having mental confusion. Exam: Axial CT scan of brain performed without IV contrast. Comparison: Head CT without contrast dated 08/08/2017. Findings: There is skull streak artifact which obscures portions of brainstem, posterior fossa, and portion of the brain and skull. There is no evidence of acute cerebral infarct, intracranial hemorrhage, or gross mass effect. Diffuse brain parenchymal volume loss again seen which is slightly progressed. There is slight progression of focal, patchy confluent areas of low-attenuation white matter changes throughout both cerebral hemispheres and periventricular regions, likely representing chronic small vessel ischemic disease and leukoaraiosis. There is normal bonilla-white matter distinction. There is no significant midline shift or herniation. There is no evidence of hydrocephalus. The basal cisterns are unremarkable. The skull, extracranial soft tissue, and orbits are unremarkable. There is a small amount of consolidation involving the left mastoid air cells. Temporal bones show no significant abnormality. Impression: 1: There is no CT evidence of acute intracranial process. 2: There is slight progression of chronic small vessel ischemic disease and brain parenchymal volume loss. Dictated by: Dictated on workstation # [id number]
--- NOTE | 2018-12-04 09:47 | Diagnostic Imaging Report ---
Indication: Patient found unresponsive. Portable chest 9:38 AM Heart size and pulmonary vascularity normal. Lungs are clear. There are no effusions or pneumothoraces. Impression: Negative chest Dictated by: Dictated on workstation # [id number]
[2018-12-04] MEDS ORDERED: LORazepam INJ 2 MG/ML (ATIVAN) VIAL ONE (10:13)
--- NOTE | 2018-12-04 10:14 | ED General ---
General Chief Complaint: Altered Mental Status Stated Complaint: UNRESPONSIVE Nursing Triage Note: family states early this morning pt "jaw protruted, eyes moving side to side slowy" not responding to family. Nursing Sepsis Screen: No Definite Risk Source of Information: Patient, EMS, Family History of Present Illness Date Seen by Provider: Dec 04, 2018 Time Seen by Provider: 09:00 Initial Comments This 88-year-old white female presents with a possible seizure was noted this morning. The patient has not had seizure activity in the past. She has had recurrent urinary tract infections. The patient was very warm at home this morning. She had no focal complaints of cough, vomiting or diarrhea, or dysuria. Allergies and Home Medications Allergies Coded Allergies: Penicillins (Unverified Allergy, Severe, EDEMA, 04/13/18) Home Medications Acetaminophen 500 Mg Tablet, 500 MG PO Q4H PRN for PAIN-MILD, (Reported) Amlodipine Besylate 10 Mg Tablet, 10 MG PO 0630, (Reported) Bisacodyl 5 Mg Tablet.dr, 5 MG PO DAILY PRN for CONSTIPATION-4TH LINE, (Reported) Cefdinir 300 Mg Capsule, 300 MG PO BID Prescribed by: SHELLIE DAVENPORT on 11/24/18919 Cholecalciferol (Vitamin D3) 1,000 Unit Capsule, 2,000 UNIT PO 1530, (Reported) TAKES 2 (1000 UNIT) CAPSULES Cholestyramine (with Sugar) 4 Gm Powd.pack, 4 GM PO TID Prescribed by: JERSON BOWLES on 11/15/18 111 Citalopram Hydrobromide 40 Mg Tablet, 40 MG PO 1530, (Reported) Clonazepam 1 Mg Tablet, 2 MG PO 0630, (Reported) TAKES 2 (1MG) TABLETS Clonazepam 1 Mg Tablet, 1 MG PO 1530, (Reported) Cranberry Conc/Ascorbic Acid 1 Each Capsule, 2 CAP PO 1530, (Reported) Fluconazole 100 Mg Tablet, 100 MG PO DAILY Prescribed by: SHELLIE DAVENPORT on 11/24/18919 Lisinopril 10 Mg Tablet, 10 MG PO 0630, (Reported) Melatonin 5 Mg Capsule, 5 MG PO 1530, (Reported) Meloxicam 15 Mg Tablet, 15 MG PO 0630, (Reported) Metoprolol Succinate 25 Mg Tab.er.24h, 25 MG PO BID Prescribed by: SHELLIE DAVENPORT on 7/29/19 0920 Omeprazole 20 Mg Capsule.dr, 20 MG PO 0630, (Reported) Pediatric Multivitamin Comb#30 1 Each Tab.chew, 2 TAB.CHEW PO HS, (Reported) Potassium Chloride 10 Meq Tablet.er, 20 MEQ PO 0630, (Reported) TAKES 2 (10MEQ) TABLETS Risperidone 0.25 Mg Tablet, 0.25 MG PO evening Prescribed by: ARIELA WALLS on 10/11/18 4682 Patient Home Medication List Home Medication List Reviewed: Yes Review of Systems Review of Systems Constitutional: fever, malaise EENTM: No ear discharge Respiratory: No cough Cardiovascular: No chest pain Gastrointestinal: No abdominal pain, No diarrhea, No nausea, No vomiting Genitourinary: No decreased output, No dysuria, No frequency Musculoskeletal: no symptoms reported Skin: No rash Psychiatric/Neurological: No Symptoms Reported Hematologic/Lymphatic: No Symptoms Reported Immunological/Allergic: no symptoms reported Past Wgpzetl-Mzbucc-Lxgtyp Hx Past Med/Social Hx: Reviewed Nursing Past Med/Soc Hx Patient Social History Alcohol Use: Denies Use Recreational Drug Use: No Smoking Status: Never a Smoker 2nd Hand Smoke Exposure: No Recent Foreign Travel: No Contact w/Someone Who Travel: No Recent Infectious Disease Expo: No Recent Hopitalizations: No Immunizations Up To Date Tetanus Booster (TDap): Unknown PED Vaccines UTD: No Date of Pneumonia Vaccine: Jan 27, 2014 Date of Influenza Vaccine: Jan 27, 2014 Seasonal Allergies Seasonal Allergies: No Past Medical History Surgeries: Yes Eye Surgery, Gallbladder, Joint Replacement, Orthopedic Respiratory: No Currently Using CPAP: No Currently Using BIPAP: No Cardiac: Yes Deep Vein Thrombosis, High Cholesterol, Hypertension Neurological: No Dementia Reproductive Disorders: No Genitourinary: Yes UTI-Chronic Gastrointestinal: Yes C-Diff Musculoskeletal: Yes Degenerate Disk Disease, Osteoporosis, Arthritis, Fractures Endocrine: No HEENT: Yes Cataract Loss of Vision: Denies Hearing Impairment: Bilateral Hearing Aide Cancer: No Psychosocial: Yes Anxiety, Depression Integumentary: No Blood Disorders: No Adverse Reaction/Blood Tranf: No Family Medical History Myocardial infarction 19 MOTHER, Onset:60 years & older Heart Disease, Hypertension Physical Exam Vital Signs Vital Signs - First Documented 12/04/18 08:10 Temp 97.9 Pulse 86 Resp 16 B/P (MAP) 198/104 (135) Pulse Ox 96 O2 Delivery Room Air Capillary Refill : Less Than 3 Seconds Height, Weight, BMI Height: 5'6.00" Weight: 132lbs. 0.0oz. [id number]; 21.3 BMI Method:Stated General Appearance: Cachetic, Other (patient was poorly responsive and unable to offer helpful history but did answer correctly to her name and other simple questions) Eyes: Bilateral Eye Normal Inspection Neck: Normal Inspection Respiratory: Lungs Clear Cardiovascular: Regular Rate, Rhythm Gastrointestinal: Normal Bowel Sounds, Non Tender, Soft Extremity: Normal Inspection Neurologic/Psychiatric: Other (patient was able to move 4 extremities to command. She was able answer simple questions correctly.) Skin: Normal Color, Warm/Dry; No Rash Progress/Results/Core Measures Suspected Sepsis Recent Fever Within 48 Hours: No Infection Criteria Present: None New/Unexplained Altered Menta: Yes Sepsis Screen: No Definite Risk SIRS Temperature:97.9 Pulse: 86 Respiratory Rate: 16 Laboratory Tests 12/04/18 08:15: White Blood Count 7.3 Blood Pressure 198 /104 Mean: 135 Laboratory Tests 12/04/18 08:15: Platelet Count 383 12/04/18 08:40: Creatinine 0.69, Total Bilirubin 0.4 Results/Orders Lab Results Laboratory Tests Test 12/04/18 08:15 12/04/18 08:25 12/04/18 08:40 Range/Units White Blood Count 7.3 4.3-11.0 10^3/uL Red Blood Count 5.00 4.35-5.85 10^6/uL Hemoglobin 14.2 11.5-16.0 G/DL Hematocrit 43 35-52 % Mean Corpuscular Volume 87 80-99 FL Mean Corpuscular Hemoglobin 28 25-34 PG Mean Corpuscular Hemoglobin Concent 33 32-36 G/DL Red Cell Distribution Width 18.1 H 10.0-14.5 % Platelet Count 383 130-400 10^3/uL Mean Platelet Volume 10.5 H 7.4-10.4 FL Neutrophils (%) (Auto) 71 42-75 % Lymphocytes (%) (Auto) 17 12-44 % Monocytes (%) (Auto) 10 0-12 % Eosinophils (%) (Auto) 3 0-10 % Basophils (%) (Auto) 0 0-10 % Neutrophils # (Auto) 5.2 1.8-7.8 X 10^3 Lymphocytes # (Auto) 1.2 1.0-4.0 X 10^3 Monocytes # (Auto) 0.7 0.0-1.0 X 10^3 Eosinophils # (Auto) 0.2 0.0-0.3 10^3/uL Basophils # (Auto) 0.0 0.0-0.1 10^3/uL Urine Color YELLOW Urine Clarity VERY CLOUDY H Urine pH 6 5-9 Urine Specific Graham 1.020 1.016-1.022 Urine Protein 3+ H NEGATIVE Urine Glucose (UA) NEGATIVE NEGATIVE Urine Ketones 2+ H NEGATIVE Urine Nitrite POSITIVE H NEGATIVE Urine Bilirubin NEGATIVE NEGATIVE Urine Urobilinogen NORMAL NORMAL MG/DL Urine Leukocyte Esterase 3+ H NEGATIVE Urine RBC (Auto) 4+ H NEGATIVE Urine RBC 5-10 H /HPF Urine WBC TNTC H /HPF Urine Squamous Epithelial Cells >50 H /HPF Urine Crystals NONE /LPF Urine Bacteria LARGE H /HPF Urine Casts NONE /LPF Urine Mucus NEGATIVE /LPF Urine Culture Indicated YES Sodium Level 136 135-145 MMOL/L Potassium Level 4.0 3.6-5.0 MMOL/L Chloride Level 102 98-107 MMOL/L Carbon Dioxide Level 23 21-32 MMOL/L Anion Gap 11 5-14 MMOL/L Blood Urea Nitrogen 12 7-18 MG/DL Creatinine 0.69 0.60-1.30 MG/DL Estimat Glomerular Filtration Rate > 60 BUN/Creatinine Ratio 17 Glucose Level 130 H 70-105 MG/DL Calcium Level 9.8 8.5-10.1 MG/DL Corrected Calcium 10.3 H 8.5-10.1 MG/DL Total Bilirubin 0.4 0.1-1.0 MG/DL Aspartate Amino Transf (AST/SGOT) 15 5-34 U/L Alanine Aminotransferase (ALT/SGPT) 12 0-55 U/L Alkaline Phosphatase 70 40-136 U/L Troponin I 0.118 H <0.028 NG/ML Total Protein 6.7 6.4-8.2 GM/DL Albumin 3.4 3.2-4.5 GM/DL My Orders Orders - ROSEMARY LOMBARDI MD Ct Head Wo (12/04/18 08:26) Ua Culture If Indicated (12/04/18 08:26) Cbc With Automated Diff (12/04/18 08:26) Comprehensive Metabolic Panel (12/04/18 08:26) Ekg Tracing (12/04/18 08:26) Troponin I (12/04/18 08:26) Chest 1 View, Ap/Pa Only (12/04/18 08:26) Urine Culture (12/04/18 08:25) Ceftriaxone For Iv Use (Rocephin For I (12/04/18 09:30) Blood Culture (12/04/18 09:24) Lactic Acid Analyzer (12/04/18 09:24) Vital Signs/I&O 12/04/18 08:10 Temp 97.9 Pulse 86 Resp 16 B/P (MAP) 198/104 (135) Pulse Ox 96 O2 Delivery Room Air Capillary Refill : Less Than 3 Seconds Blood Pressure Mean: 135 Progress Note : Time: 10:12 Progress Note Patient's laboratory evaluation demonstrated an urinary tract infection. 2 g of Rocephin IV were ordered. Patient was admitted to a swing bed to Dr. Davenport service. ECG Initial ECG Impression Date: Dec 04, 2018 Departure Communication (Admissions) Time/Spoke to Admitting Phy: 10:14 Dr. Davenport. Impression Primary Impression: UTI (urinary tract infection) Qualified Codes: N30.00 - Acute cystitis without hematuria Disposition: ADMITTED INPATIENT Condition: Improved Admissions Decision to Admit Reason: Admit from ER (General) Decision to Admit/Date: Dec 04, 2018 Time/Decision to Admit Time: 10:14 Departure-Patient Inst. Referrals: SHELLIE DAVENPORT MD (PCP/Family) Primary Care Physician ROSEMARY LOMBARDI MD Dec 04, 2018 10:14
--- NOTE | 2018-12-04 10:14 | NUR ---
Family called out for help, patient having seizure like activity. arms/legs stiff, pt shaking, eyes closed. Dr Zaragoza in room.
--- NOTE | 2018-12-04 10:15 | NUR ---
Pt on O2 via mask, ativan 0.5 mg given per verbal order. pt family at bedside. pt on bedside monitor. family states this is how pt was this morning.
--- NOTE | 2018-12-04 10:43 | NUR ---
REPORT TAKEN AT THIS TIME FROM Michael NATION RN. THIS RN WILL ASSUME CARE OF THIS PATIENT WHEN SHE ARRIVES TO THIS FLOOR.
[2018-12-04] MEDS: LEVETIRACETAM 500 MG/NS 100 ML IVPB IV SCH ×6 (11:00→22:13)
--- NOTE | 2018-12-04 11:00 | NUR ---
pt on NC at 2L. sitting up in bed. pt alert, orientated to name. family at bedside.
[2018-12-04] MEDS ORDERED: LORazepam INJ 2 MG/ML (ATIVAN) VIAL IV PRN (12:00)
[2018-12-04] MEDS: NS IV 1000 ML 1,000 ML IV SCH (12:03)
[2018-12-04] MEDS ORDERED: ONDANSETRON 4 MG/2 ML (SDV) Z0FRAN ONE (12:08)
[2018-12-04] MEDS: DIVALPROEX 250 MG DELAYED RELEASE (DEPAKOTE) TAB PO SCH ×2 (12:14→21:21)
[2018-12-04 13:57] VITALS: BP 155/98
[2018-12-04] MEDS ORDERED: ASCO-262 PO (14:10)
[2018-12-04] MEDS ORDERED: L.AC1CAP6 PO (14:10)
[2018-12-04] MEDS ORDERED: METO-387 PO (14:10)
[2018-12-04] MEDS ORDERED: ASPI-789 PO (14:10)
[2018-12-04] MEDS ORDERED: MAGN400T39 PO (14:10)
--- NOTE | 2018-12-04 14:17 | NUR ---
WENT OVER MEDICATIONS WITH THE PATIENTS FAMILY IN THE ROOM. SHE HAD BOTTLES AND STATES SHE SETS UP HER PILLS FOR HER. I COMPARED THE BOTTLES WITH THE EXT MED HX. IN ADDITION TO THE EXT MED HX [facility] FILLED MAG-OX 400MG 3X WEEKLY #39 12-01-18. THIS WAS A NEW SCRIPT THAT THEY JUST STARTED. THE FOLLOWING MEDICATIONS HAVE BEEN DISCONTINUED: 09-27-18 ZOCOR 20MG DAILY #90 08-11-18 NORVASC 10MG DAILY #90 OTC MEDS INCLUDE: VITAMIN C BID GUMMIE MTV 2 DAILY MELATONIN 5MG HS PROBIOTIC DAILY CRANBERRY +C 2 HS VITAMIN D 1000IU 2 HS DULCOLAX PRN EXCEDRIN PRN (ALTERNATES BETWEEN EXCEDRIN AND TYLENOL DEPENDING WHAT THEY HAVE, CURRENTLY HAVE GENERIC EXCEDRIN)
--- NOTE | 2018-12-04 14:40 | NUR ---
Mcguire catheter leaking, 10mL added to bulb. Will continue to monitor.
[2018-12-04 16:00] VITALS: BP 190/102
--- NOTE | 2018-12-04 16:03 | NUR ---
Gloria at Dr. Davenport's office notified of elevated BP 200/109, P 120, and elevated T of 100.6. No new orders at this time.
[2018-12-04] MEDS ORDERED: meTOproloL SUCCINATE 50 MG (TOPROL XL) TAB PO NR (17:30)
[2018-12-04] MEDS ORDERED: ACETAMINOPHEN 650 MG SUPP (TYLENOL) PR PRN (17:30)
--- NOTE | 2018-12-04 19:10 | NUR ---
Reported to oncoming RN Maday that 10mL has been added to catheter bulb
[2018-12-04 20:00] VITALS: BP 200/88
--- NOTE | 2018-12-04 20:31 | History & Physicial ---
History of Present Illness History of Present Illness Reason for visit/HPI PT IS COMPLETELY CONFUSED, UNABLE TO ANSWER QUESTIONS TODAY. HER DTR IS IN THE ROOM AND STATES THAT HER MOM WAS IN HER RIGHT STATE OF MIND YESTERDAY, PLAYING CATCH WITH THEIR DOG AND NOT HAVING ANY TROUBLE. HOWEVER, YESTERDAY MORNING THEY NOTICED THAT SHE WAS TWITCHING, NOT ALERT AND SHE WAS UNABLE TO BE AWAKENED. HER FAMILY THEN BROUGHT HER INTO THE HOSPITAL FOR FURTHER EVALUATION. UPON EVALUATION THE EMERGENCY PHYSICIAN FOUND THAT SHE WAS HAVING SEIZURES - SHE WAS GIVEN ATIVAN AND KEPPRA IV. Date of Admission Dec 04, 2018 at 11:23 Date Seen by a Provider: Dec 04, 2018 Time Seen by a Provider: 20:00 I consulted on this patient on 12/04/18 20:00 Attending Physician SHELLIE DAVENPORT MD Admitting Physician Shellie Davenport MD Consult Allergies and Home Medications Allergies Coded Allergies: Penicillins (Unverified Allergy, Severe, EDEMA, 12/04/18) Home Medications Ascorbate Calcium 500 Mg Tablet, 500 MG PO 0630,1800 DAILY, (Reported) Aspirin/Acetaminophen/Caffeine 1 Each Tablet, 1-2 TAB PO Q8H PRN for PAIN-MILD, (Reported) Bisacodyl 5 Mg Tablet.dr, 5 MG PO DAILY PRN for CONSTIPATION-4TH LINE, (Reported) Cephalexin 500 Mg Capsule, 500 MG PO QID Prescribed by: SHELLIE DAVENPORT on 12/05/18 1253 Cholecalciferol (Vitamin D3) 1,000 Unit Capsule, 2,000 UNIT PO 1800 DAILY, (Reported) TAKES 2 (1000 UNIT) CAPSULES Citalopram Hydrobromide 40 Mg Tablet, 40 MG PO 1800 DAILY, (Reported) Clonazepam 1 Mg Tablet, 2 MG PO 0630 DAILY, (Reported) TAKES 2 (1MG) TABLETS Clonazepam 1 Mg Tablet, 1 MG PO 1800 DAILY, (Reported) Cranberry Conc/Ascorbic Acid 1 Each Capsule, 2 CAP PO 1800 DAILY, (Reported) Fluconazole 150 Mg Tablet, 150 MG PO DAILY Prescribed by: SHELLIE DAVENPORT on 12/05/18 1253 L.acidoph & Paracasei,B.lactis 1 Each Capsule, 1 CAP PO 0630 DAILY, (Reported) Levetiracetam 250 Mg Tablet, 250 MG PO BID Prescribed by: SHELLIE DAVENPORT on 12/05/18 1253 Magnesium Oxide 400 Mg Tablet, 400 MG PO MoWeFr, (Reported) Melatonin 5 Mg Capsule, 5 MG PO 1800 DAILY, (Reported) Meloxicam 15 Mg Tablet, 15 MG PO 0630 DAILY, (Reported) Metoprolol Succinate 25 Mg Tab.er.24h, 25 MG PO 0630,1800 DAILY, (Reported) Omeprazole 20 Mg Capsule.dr, 20 MG PO 0630 DAILY, (Reported) Ondansetron 4 Mg Tab.rapdis, 4 MG PO QID Prescribed by: SHELLIE DAVENPORT on 12/05/18 1258 Pediatric Multivitamin Comb#30 1 Each Tab.chew, 2 TAB.CHEW PO 1800 DAILY, (Reported) Potassium Chloride 10 Meq Tablet.er, 20 MEQ PO 0630 DAILY, (Reported) TAKES 2 (10MEQ) TABLETS Patient Home Medication List Home Medication List Reviewed: Yes Past Thnywtl-Hyoiza-Opxoki Hx Patient Social History Marrital Status: Living Status: LIVES WITH HER SARAH Employed/Student: retired Alcohol Use: Denies Use Recreational Drug Use: No Smoking Status: Never a Smoker 2nd Hand Smoke Exposure: No Physical Abuse Screen: No Sexual Abuse: No Recent Foreign Travel: No Contact w/other who traveled: No Recent Hopitalizations: No Recent Infectious Disease Expo: No Immunizations Up To Date Tetanus Booster (TDap): Unknown Pediatric: No Date of Pneumonia Vaccine: Jan 27, 2014 Date of Influenza Vaccine: Jan 27, 2014 Seasonal Allergies Seasonal Allergies: No Surgeries Yes Eye Surgery, Gallbladder, Joint Replacement, Orthopedic Respiratory No Currently Using CPAP: No Currently Using BIPAP: No Cardiovascular Yes Deep Vein Thrombosis, High Cholesterol, Hypertension Neurological No Dementia Reproductive System Hx Reproductive Disorders: No Genitourinary Yes UTI-Chronic Gastrointestinal Yes C-Diff Musculoskeletal Yes Degenerate Disk Disease, Osteoporosis, Arthritis, Fractures Endocrine History of Endocrine Disorders: No HEENT History of HEENT Disorders: Yes HEENT Disorders: Cataract Loss of Vision: Denies Hearing Impairment: Bilateral Hearing Aide Cancer No Psychosocial History of Psychiatric Problem: Yes Behavioral Health Disorders: Anxiety, Depression Integumentary History of Skin or Integumenta: No Blood Transfusions History of Blood Disorders: No Adverse Reaction to a Blood Tr: No Reviewed Nursing Assessment Reviewed/Agree w Nursing PMH: Yes Family Medical History Significant Family History: Heart Disease, Hypertension Family Hx: Myocardial infarction 19 MOTHER, Onset:60 years & older Review of Systems Constitutional: No chills, No diaphoresis, No fever; malaise, weakness EENTM: hearing loss Respiratory: No cough, No dyspnea on exertion, No short of breath Cardiovascular: No chest pain, No edema, No palpitations Gastrointestinal: No abdominal pain; nausea; No vomiting Genitourinary: no symptoms reported Musculoskeletal: muscle weakness Skin: no symptoms reported Psychiatric/Neurological: Weakness, Other (CONFUSED/OBTUNDED) All Other Systems Reviewed Negative Unless Noted: Yes Physical Exam Vital Signs Vital Signs - First Documented 12/04/18 12/04/18 08:10 11:32 Temp 97.9 Pulse 86 Resp 16 B/P (MAP) 198/104 (135) Pulse Ox 96 O2 Delivery Room Air O2 Flow Rate 2.00 Capillary Refill : Less Than 3 Seconds Height, Weight, BMI Height: 5'6.00" Weight: 132lbs. 0.0oz. [id number]; 21.3 BMI Method:Stated General Appearance: Mild Distress (CONFUSED) Eyes: Bilateral Eye Normal Inspection, Bilateral Eye PERRL, Bilateral Eye EOMI HEENT: PERRL/EOMI, Pharynx Normal Neck: Full Range of Motion, Supple Respiratory: Chest Non Tender, Lungs Clear, Normal Breath Sounds, No Resp iratory Distress Cardiovascular: Regular Rate, Rhythm, Systolic Murmur Gastrointestinal: Normal Bowel Sounds, Non Tender, Soft Rectal: Deferred Extremity: Non Tender, No Pedal Edema Neurologic/Psychiatric: Other (AROUSED TO VOICE, BUT UNABLE TO VOCALIZE ANY RESPONSE) Skin: Warm/Dry Lymphatic: No Adenopathy Assessment/Plan Assessment and Plan RECURRENT URINARY TRACT INFECTION NEW-ONSET SEIZURE CONFUSION HYPERTENSION CHRONIC WEAKNESS DEMENTIA ANXIETY ESOPHAGEAL REFLUX RECURRENT URINARY TRACT INFECTION - PT STARTED ON IV ROCEPHIN - LAST FEW CULTURE REPORTS SHOW SENSITIVITY TO CEPHALOSPORIN ANTIBIOTICS. NEW-ONSET SEIZURE WITH POSTICTAL CONFUSION - DISCUSSED WITH THE PATIENT'S DTR THAT SHE NEEDS TO BE ON MEDICATION - KEPPRA IV STARTED, WILL TRANSITION TO ORAL MEDICATIONS ONCE ALERT ENOUGH TO SAFELY TAKE ORAL MEDICATIONS. HYPERTENSION - IV HYDRALAZINE WHILE NOT ALERT ENOUGH TO TAKE MEDICATIONS BY MOUTH. - WHEN ABLE WILL START PT ON HER METOPROLOL. CHRONIC WEAKNESS WITH OA AND DIFFICULTY AMBULATING - DISCUSSED WITH PT - WILL NEED TO HAVE PT PARTICIPATE IN PHYSICAL THERAPY, OCC THERAPY AND SPEECH THERAPY. DEMENTIA - SUPPORTIVE CARE ONLY AT THIS TIME. ANXIETY - RESTARTED CLONAZEPAM. ESOPHAGEAL REFLUX - RESTART ON PPI DISCUSSED WITH HER DTR - WILL HAVE PT GO TO [facility] FOR [facility] ON DISCHARGE, IF SHE IS IMPROVED ENOUGH WE WILL CONSIDER SENDING PT TO [facility] TOMORROW, IF NOT, WILL THEN NEED AT LEAST ANOTHER MIDNIGHT IN THE HOSPITAL. Admission Diagnosis RECURRENT URINARY TRACT INFECTION NEW-ONSET SEIZURE CONFUSION HYPERTENSION CHRONIC WEAKNESS DEMENTIA ANXIETY ESOPHAGEAL REFLUX Admission Status: Inpatient Order (span 2 midnights) Reason for Inpatient Admission: INPATIENT ADMISSION FOR NEWONSET SEIZURE AND URINARY TRACT INFECTION - MAY REQUIRE 2 MIDNIGHTS FOR STABILIZATION - SHE MAY NEED TO GO TO THE [facility] FOR FURTHER CLOSE MONITORING. Clinical Quality Measures DVT/VTE Risk/Contraindication: Risk Factor Score Per Nursin RFS Level Per Nursing on Admit: 2=Moderate SHELLIE DAVENPORT MD Dec 04, 2018 20:30
[2018-12-04] MEDS ORDERED: LEVETIRACETAM INJECTION 500 MG in NS (IVPB) 100 ML IV SCH (21:00)
--- NOTE | 2018-12-04 21:30 | NUR ---
DR. OLIVIER AT BEDSIDE ROUNDING ON PATIENT. NEW ORDERS RECEIVED: HYDRALAZINE 10MG IV Q6HRS,TELEMETRY, MAKE PATIENT DNR/DNI, DC DEPAKOTE, JUNE METOPROLOL, WILL CONTINUE TO MONITOR.
--- OUTSIDE RECORDS SUMMARY | 2018-12-04 22:54 | XMS REPORT | CCD ---
Author Author Morenita Don MD, [facility] Address [address] [place] [address] Phone Care Team Providers Care Relationship Management Lead Name Role Phone PP Unavailable CCM Unavailable Summary Purpose Interface Exchange Insurance Providers Payer name Policy type / Coverage type Covered alliance party ID Effective Begin Date Effective End Date [facility] Medicare Part B [id number] 2018 Unknown Family history Father Diagnosis Age At Onset Myocardial infarction Unknown Mother Diagnosis Age At Onset Myocardial infarction Unknown Social History Social History Element Codes Description Effective Dates Marital status Unknown 11/29/2015 Number of children Unknown 2 son at 3hrs old 11/29/2015 Employment Unknown Retired 11/29/[address]: 587522966 Never smoker 11/29/[address]: 025400046 Never drinks alcohol 11/29/2015 Allergies, Adverse Reactions, Alerts Substance Reaction Codes Entered Date Inactivated Date Status PENICILLINS Unknown 11/29/2015 No Inactive Date Active Past Medical History Illness Codes Condition Status Onset Date Resolved Date Essential (primary) hypertension ICD-9: 401.9 ICD-10: I10 Active 02/27/2016 Unknown Generalized anxiety disorder ICD-9: 300.02 ICD-10: F41.1 Active 02/27/2016 Unknown Hypomagnesemia ICD-9: 275.2 ICD-10: E83.42 Active 11/28/2018 Unknown Urinary tract infection, site not specified ICD-9: 599.0 ICD-10: N39.0 Active 09/26/2018 Unknown Pneumonia, unspecified organism ICD-9: 486 ICD-10: J18.9 Active 09/26/2018 Unknown Slow transit constipation ICD-9: [...] disorder ICD-9: 300.02 ICD-10: F41.1 02/27/2016 Active Hypomagnesemia ICD-9: 275.2 ICD-10: E83.42 11/28/2018 Active Urinary tract infection, site not specified ICD-9: 599.0 ICD-10: N39.0 09/26/2018 Active Pneumonia, unspecified organism ICD-9: 486 ICD-10: J18.9 09/26/2018 Active Slow transit constipation ICD-9: 564.01 [...] Start Date Stop Date Status Fill Instructions magnesium oxide 400 mg (241.3 mg magnesium) tablet RxNorm: 010544 1 Tablet(s) PO TIW 12/01/2018 08/27/2019 Active magnesium oxide 400 mg (241.3 mg magnesium) tablet RxNorm: 560139 1 Tablet(s) PO TIW 12/01/2018 11/30/2018 Inactive metoprolol succinate ER 25 mg tablet,extended release 24 hr RxNorm: 633091 1 Tablet(s) PO BID 11/28/2018 08/24/2019 Active potassium chloride ER 10 mEq tablet,extended release RxNorm: 323306 TAKE 2 TABLETS BY MOUTH ONCE DAILY 11/17/2018 No Stop Date Active clonazepam 1 mg tablet RxNorm: 294912 1 Tablet(s) PO TID PRN 11/17/2018 02/14/2019 Active omeprazole 20 mg capsule,delayed release RxNorm: 168166 1 Capsule(s) PO daily TAKE ONE CAPSULE BY MOUTH ONCE DAILY 09/26/2018 03/24/2019 Active Diflucan 150 mg tablet RxNorm: 155939 1 Tablet(s) PO QW 09/26/2018 10/25/2018 Inactive metoprolol succinate ER 25 mg tablet,extended release 24 hr RxNorm: 197188 1 Tablet(s) PO daily 09/26/2018 11/27/2018 Inactive clonazepam 1 mg tablet RxNorm: 818209 1 Tablet(s) PO TID PRN 08/12/2018 11/08/2018 Inactive Mobic 15 mg tablet RxNorm: 309751 TAKE ONE TABLET BY MOUTH ONCE DAILY 08/11/2018 No Stop Date Active amlodipine 10 mg tablet RxNorm: 185092 TAKE ONE TABLET BY MOUTH ONCE DAILY 08/11/2018 09/25/2018 Inactive lisinopril 10 mg tablet RxNorm: 368806 TAKE ONE TABLET BY MOUTH ONCE DAILY 07/21/2018 09/25/2018 Inactive potassium chloride ER 10 mEq tablet,extended release RxNorm: 409055 TAKE TWO TABLETS BY MOUTH ONCE DAILY 07/01/2018 11/16/2018 Inactive simvastatin 20 mg tablet RxNorm: 613723 TAKE ONE TABLET BY MOUTH ONCE DAILY IN THE EVENING 06/17/2018 11/27/2018 Inactive omeprazole 20 mg capsule,delayed release RxNorm: 925633 TAKE ONE CAPSULE BY MOUTH ONCE DAILY 06/09/2018 09/25/2018 Inactive clonazepam 1 mg tablet RxNorm: 931661 1 Tablet(s) PO TID PRN 05/26/2018 08/11/2018 Inactive Miralax 17 gram oral powder packet RxNorm: 571427 1 packet PO every other day 05/26/2018 11/27/2018 Inactive melatonin 3 mg tablet RxNorm: 527017 1-2 Tablet(s) PO HS PRN 04/24/2018 No Stop Date Active citalopram 40 mg tablet RxNorm: 320609 1 Tablet(s) PO daily 04/24/2018 10/20/2018 Inactive clonazepam 1 mg tablet RxNorm: 986401 1 Tablet(s) PO TID 04/09/2018 08/11/2018 Inactive citalopram 20 mg tablet RxNorm: 051403 1 Tablet(s) PO daily 01/23/2018 04/23/2018 Inactive metoprolol succinate ER 25 mg tablet,extended release 24 hr RxNorm: 223690 1 Tablet(s) PO daily 01/20/2018 09/25/2018 Inactive citalopram 10 mg tablet RxNorm: 329175 1 Tablet(s) PO daily 12/31/2017 01/22/2018 Inactive clonazepam 1 mg tablet RxNorm: 843121 1 Tablet(s) PO TID 10/09/2017 05/25/2018 Inactive omeprazole 20 mg capsule,delayed release RxNorm: 141710 Capsule(s) TAKE 1 CAPSULE BY MOUTH EVERY DAY 06/03/2017 02/27/2018 Inactive Mobic 15 mg tablet RxNorm: 014655 Tablet(s) 1 TABLET(S) PO DAILY 06/03/2017 02/27/2018 Inactive amlodipine 10 mg tablet RxNorm: 359308 Tablet(s) TAKE 1 TABLET BY MOUTH EVERY DAY 06/03/2017 02/27/2018 Inactive metoprolol succinate ER 25 mg tablet,extended release 24 hr RxNorm: 688650 1 Tablet(s) PO daily 06/03/2017 01/19/2018 Inactive lisinopril 10 mg tablet RxNorm: 328750 Tablet(s) TAKE 1 TABLET BY MOUTH EVERY DAY 06/03/2017 02/27/2018 Inactive Lexapro 20 mg tablet RxNorm: 046125 1 Tablet(s) PO QPM 06/03/2017 12/30/2017 Inactive clonazepam 1 mg tablet RxNorm: 002038 1 Tablet(s) PO TID 06/03/2017 10/08/2017 Inactive potassium chloride ER 10 mEq tablet,extended release RxNorm: 148023 Tablet(s) TAKE 2 TABLETS BY MOUTH EVERY DAY 06/03/2017 02/27/2018 Inactive simvastatin 20 mg tablet RxNorm: 979932 Tablet(s) 1 TABLET(S) PO QPM 06/03/2017 02/27/2018 Inactive Mobic 15 mg tablet RxNorm: 816899 1 TABLET(S) PO DAILY 04/23/2017 06/02/2017 Inactive lisinopril 10 mg tablet RxNorm: 486956 TAKE 1 TABLET BY MOUTH EVERY DAY 04/05/2017 06/02/2017 Inactive metoprolol succinate ER 25 mg tablet,extended release 24 hr RxNorm: 630102 1 Tablet(s) PO daily 02/01/2017 06/02/2017 Inactive Lexapro 20 mg tablet RxNorm: 206045 1 Tablet(s) PO QPM TAKE 1 TABLET BY MOUTH EVERY EVENING 02/01/2017 02/01/2017 Inactive Lexapro 20 mg tablet RxNorm: 808607 1 Tablet(s) PO QPM 1 TABLET(S) PO QPM TAKE 1 TABLET BY MOUTH EVERY EVENING 02/01/2017 06/02/2017 Inactive Patient requests 90 days supply clonazepam 1 mg tablet RxNorm: 159639 1 Tablet(s) PO TID 02/01/2017 06/02/2017 Inactive Lexapro 20 mg tablet RxNorm: 206790 1 Tablet(s) PO QPM 1 TABLET(S) PO QPM TAKE 1 TABLET BY MOUTH EVERY EVENING 02/01/2017 01/31/2017 Inactive Patient requests 90 days supply metoprolol succinate ER 25 mg tablet,extended release 24 hr RxNorm: 359879 1 Tablet(s) PO daily 02/01/2017 01/31/2017 Inactive amlodipine 10 mg tablet RxNorm: 180313 TAKE 1 TABLET BY MOUTH EVERY DAY 01/15/2017 06/02/2017 Inactive potassium chloride ER 10 mEq tablet,extended release RxNorm: 933879 TAKE 2 TABLETS BY MOUTH EVERY DAY 12/04/2016 06/02/2017 Inactive Lexapro 20 mg tablet RxNorm: 568441 TAKE 1 TABLET BY MOUTH EVERY EVENING 11/12/2016 01/31/2017 Inactive omeprazole 20 mg capsule,delayed release RxNorm: 478331 TAKE 1 CAPSULE BY MOUTH EVERY DAY 10/29/2016 10/28/2016 Inactive omeprazole 20 mg capsule,delayed release RxNorm: 381853 TAKE 1 CAPSULE BY MOUTH EVERY DAY 10/29/2016 06/02/2017 Inactive L-Methylfolate 15 mg tablet RxNorm: 1 Tablet(s) PO daily 10/08/2016 01/31/2017 Inactive clonazepam 1 mg tablet RxNorm: 101584 1 Tablet(s) PO BID 08/31/2016 01/31/2017 Inactive L-Methylfolate 15 mg tablet RxNorm: 1 Tablet(s) PO daily 08/28/2016 10/07/2016 Inactive lisinopril 20 mg tablet RxNorm: 995584 1 Tablet(s) PO daily 08/21/2016 11/18/2016 Inactive lisinopril 20 mg tablet RxNorm: 495562 1 Tablet(s) PO daily 08/21/2016 11/18/2016 Inactive Deplin (algal oil) 15 mg-90.314 mg capsule RxNorm: 1 Capsule(s) PO daily 08/21/2016 08/27/2016 Inactive Lexapro 20 mg tablet RxNorm: 544995 1 TABLET(S) PO QPM 07/27/2016 12/30/2017 Inactive simvastatin 20 mg tablet RxNorm: 932034 1 TABLET(S) PO QPM 05/24/2016 11/19/2016 Inactive Patient requests 90 days supply simvastatin 20 mg tablet RxNorm: 082192 1 Tablet(s) PO QPM 05/23/2016 05/23/2016 Inactive Lexapro 20 mg tablet RxNorm: 438395 1 Tablet(s) PO QPM 02/28/2016 02/28/2016 Inactive Lexapro 20 mg tablet RxNorm: 092071 1 Tablet(s) PO QPM 1 TABLET(S) PO QPM 02/28/2016 12/30/2017 Inactive Patient requests 90 days supply potassium chloride ER 10 mEq tablet,extended release RxNorm: 838894 TAKE 2 TABLETS BY MOUTH EVERY DAY 02/27/2016 11/22/2016 Inactive citalopram 20 mg tablet RxNorm: 549270 1 Tablet(s) PO QAM 02/27/2016 02/27/2016 Inactive clonazepam 1 mg tablet RxNorm: 757408 1 Tablet(s) PO BID 02/27/2016 12/30/2017 Inactive tramadol 50 mg tablet RxNorm: 374225 1 Tablet(s) PO Q6 as needed for pain 02/27/2016 11/27/2018 Inactive omeprazole 20 mg capsule,delayed release RxNorm: 463352 TAKE 1 CAPSULE BY MOUTH EVERY DAY 02/13/2016 10/28/2016 Inactive Mobic 15 mg tablet RxNorm: 278078 1 Tablet(s) PO daily 02/10/2016 02/03/2017 Inactive Multiple Vitamins Daily tablet RxNorm: 1 Tablet(s) PO daily 11/29/2015 12/28/2015 Inactive amlodipine 10 mg tablet RxNorm: 351572 1 Tablet(s) PO daily 11/29/2015 12/30/2017 Inactive simvastatin 20 mg tablet RxNorm: 902712 1 Tablet(s) PO QPM 11/29/2015 12/28/2015 Inactive clonazepam 1 mg tablet RxNorm: 748941 1 Tablet(s) PO Q12H 11/29/2015 12/30/2017 Inactive Colace 100 mg capsule RxNorm: 2526680 1 Capsule(s) PO daily 11/29/2015 11/29/2015 Inactive citalopram 20 mg tablet RxNorm: 418904 1 Tablet(s) PO QAM 11/29/2015 12/28/2015 Inactive Mobic 15 mg tablet RxNorm: 023309 1 Tablet(s) PO daily 11/29/2015 12/30/2017 Inactive potassium chloride ER 10 mEq tablet,extended release RxNorm: 980035 2 Tablet(s) PO daily 20meq daily 11/29/2015 12/28/2015 Inactive lisinopril 10 mg tablet RxNorm: 939366 1 Tablet(s) PO daily 11/29/2015 12/30/2017 Inactive Coricidin HBP 10 mg-200 mg capsule RxNorm: 8231085 1 Capsule(s) PO PRN No Start Date Active cranberry 400 mg capsule RxNorm: 448142 1 Capsule(s) PO daily No Start Date Active Vitamin D3 1,000 unit tablet RxNorm: 321188 1 Tablet(s) PO daily No Start Date Active docusate sodium 100 mg tablet RxNorm: 2088231 1 Tablet(s) PO daily No Start Date Active Mobic 15 mg tablet RxNorm: 745855 1 Tablet(s) PO daily No Start Date 02/09/2016 Inactive Vitamin D3 1,000 unit tablet RxNorm: 944313 1 Tablet(s) PO daily No Start Date 06/02/2017 Inactive omeprazole 20 mg tablet,delayed release RxNorm: 907592 1 Tablet(s) PO daily No Start Date 06/02/2017 Inactive potassium chloride ER 10 mEq tablet,extended release RxNorm: 780205 2 Tablet(s) PO daily No Start Date 06/02/2017 Inactive clonazepam 1 mg tablet RxNorm: 734093 1 Tablet(s) PO BID No Start Date 02/26/2016 Inactive Aleve PM 220 mg-25 mg tablet RxNorm: 5990801 1 Tablet(s) PO daily No Start Date 05/27/2016 Inactive amlodipine 10 mg tablet RxNorm: 858680 1 Tablet(s) PO daily No Start Date 01/14/2017 Inactive lisinopril 10 mg tablet RxNorm: 530556 1 Tablet(s) PO daily No Start Date 08/20/2016 Inactive tramadol 50 mg tablet RxNorm: 397234 1 Tablet(s) PO Q6 PRN No Start Date 02/26/2016 Inactive Ultram 50 mg tablet RxNorm: 855405 1 Tablet(s) PO Q6 as needed No Start Date 11/28/2015 Inactive simvastatin 20 mg tablet RxNorm: 165469 1 Tablet(s) PO QHS No Start Date 06/02/2017 Inactive citalopram 20 mg tablet RxNorm: 596441 1 Tablet(s) PO daily No Start Date 02/26/2016 Inactive lisinopril 10 mg tablet RxNorm: 074632 1 Tablet(s) PO daily No Start Date 04/04/2017 Inactive omeprazole 20 mg capsule,delayed release RxNorm: 110420 1 Capsule(s) PO daily No Start Date 02/12/2016 Inactive Medication Administered No Medication Administered data Immunizations No Immunization data Assessments Condition Codes Effective Dates Urinary tract infection, site not specified ICD-10: N39.0 ICD-9: 599.0 11/28/2018 Essential (primary) hypertension ICD-10: I10 ICD-9: 401.9 11/28/2018 Hypomagnesemia ICD-10: E83.42 ICD-9: 275.2 11/28/2018 Generalized anxiety disorder ICD-10: F41.1 ICD-9: 300.02 11/28/2018 Pneumonia, unspecified organism ICD-10: J18.9 ICD-9: 486 09/26/2018 Slow transit constipation ICD-10: K59.01 ICD-9: [...] Visit Effective Dates Notes Hospital Follow Up 11/28/2018 Hospital Follow Up 09/26/2018 constipation 05/26/2018 insomnia 04/24/2018 hypertension 12/31/2017 dyspnea 10/29/2017 depression 02/01/2017 hypertension 08/21/2016 hypertension 05/28/2016 hypertension 02/28/2016 cerumen 11/29/2015 Results Observation Observation Code Item Item Code Result Date Comp Metabolic Ylr124 NA 136 mEq/L 11/28/2018 Comp Metabolic Vbk849 K 3.7 mEq/L 11/28/2018 Comp Metabolic Ivn646 CL 96 mEq/L 11/28/2018 Comp Metabolic Dmc361 CO2 29.0 mEq/L 11/28/2018 Comp Metabolic Nhw880 ANION GAP 15 11/28/2018 Comp Metabolic Gox077 GLUCOSE 145 mg/dL 11/28/2018 Comp Metabolic Dkk951 Creat 0.7 mg/dL 11/28/2018 Comp Metabolic Pzc147 eGFR 84 ml/min/1.73m2 11/28/2018 Comp Metabolic Mtq186 BUN 9 mg/dL 11/28/2018 Comp Metabolic Suf746 B/C Ratio 12.9 Ratio 11/28/2018 Comp Metabolic Bqe621 CALCIUM 10.2 mg/dL 11/28/2018 Comp Metabolic Tln666 ALK PHOS 60 U/L 11/28/2018 Comp Metabolic Fgm457 AST(SGOT) 26 U/L 11/28/2018 Comp Metabolic Ujw832 ALT(SGPT) 14 U/L 11/28/2018 Comp Metabolic Tda402 BILI T 0.5 mg/dL 11/28/2018 Comp Metabolic Nsy736 ALBUMIN 3.8 g/dL 11/28/2018 Comp Metabolic Jaq912 TPRO 7.1 g/dL 11/28/2018 Comp Metabolic Cyl191 GLOB 3.3 g/dL 11/28/2018 Comp Metabolic Jno160 A/G Ratio 1.1 Ratio 11/28/2018 Comp Metabolic Mlw403 Osmo 273 mOsmo 11/28/2018 Cbc With Differential Ord2 WBC 8.74 K/ul 11/28/2018 Cbc With Differential Ord2 RBC 5.15 M/ul 11/28/2018 Cbc With Differential Ord2 HGB 14.4 g/dl 11/28/2018 Cbc With Differential Ord2 HCT 44.7 % 11/28/2018 Cbc With Differential Ord2 Neut% 68.2 % 11/28/2018 Cbc With Differential Ord2 MCV 86.8 fl 11/28/2018 Cbc With Differential Ord2 Lymph% 20.8 % 11/28/2018 Cbc With Differential Ord2 [place]% 10.0 % 11/28/2018 Cbc With Differential Ord2 MCH 28.0 pg 11/28/2018 Cbc With Differential Ord2 MCHC 32.2 pg 11/28/2018 Cbc With Differential Ord2 Eos% 0.8 % 11/28/2018 Cbc With Differential Ord2 Baso% 0.2 % 11/28/2018 Cbc With Differential Ord2 PLT 283 K/ul 11/28/2018 Cbc With Differential Ord2 Neut ABS# 5.96 K/ul 11/28/2018 Cbc With Differential Ord2 RDW 18.4 % 11/28/2018 Cbc With Differential Ord2 Lymph ABS# 1.82 K/ul 11/28/2018 Cbc With Differential Ord2 [place] ABS# 0.9 K/ul 11/28/2018 Cbc With Differential Ord2 Eos ABS# 0.1 K/ul 11/28/2018 Cbc With Differential Ord2 Baso ABS# 0.0 K/ul 11/28/2018 Magnesium Ord90 Mag 1.6 mg/dL 11/28/2018 Lipid Ord30 CHOL 155 mg/dL 10/09/2016 Lipid Ord30 HDL 55.0 mg/dl 10/09/2016 Lipid Ord30 TRIG 121 mg/dL 10/09/2016 Lipid Ord30 LDL 76 mg/dL 10/09/2016 Lipid Ord30 C/HDL 2.8 Ratio 10/09/2016 Comp Metabolic Dzp163 NA 136 mEq/L 10/09/2016 Comp Metabolic Kcq049 K 4.9 mEq/L 10/09/2016 Comp Metabolic Vhr531 CL 97 mEq/L 10/09/2016 Comp Metabolic Ldx039 CO2 30.0 mEq/L 10/09/2016 Comp Metabolic Efu512 ANION GAP 14 10/09/2016 Comp Metabolic Mpp810 GLUCOSE 66 mg/dL 10/09/2016 Comp Metabolic Zol518 Creat 0.9 mg/dL 10/09/2016 Comp Metabolic Yld477 eGFR 64 ml/min/1.73m2 10/09/2016 Comp Metabolic Eck149 BUN 13 mg/dL 10/09/2016 Comp Metabolic Rvq315 B/C Ratio 14.6 Ratio 10/09/2016 Comp Metabolic Zmy416 CALCIUM 10.0 mg/dL 10/09/2016 Comp Metabolic Yco188 ALK PHOS 59 U/L 10/09/2016 Comp Metabolic Ujz566 AST(SGOT) 20 U/L 10/09/2016 Comp Metabolic Asn228 ALT(SGPT) 9 U/L 10/09/2016 Comp Metabolic Gau226 BILI T 0.4 mg/dL 10/09/2016 Comp Metabolic Ars675 ALBUMIN 4.1 g/dL 10/09/2016 Comp Metabolic Aoh929 TPRO 7.1 g/dL 10/09/2016 Comp Metabolic Uqh939 GLOB 3.0 g/dL 10/09/2016 Comp Metabolic Vhd973 A/G Ratio 1.4 Ratio 10/09/2016 Comp Metabolic Uiw321 Osmo 270 mOsmo 10/09/2016 Tsh Ord6 hTSH [...] 31.2 pg 10/09/2016 Cbc With Differential Ord2 [place]% 13.7 % 10/09/2016 Cbc With Differential Ord2 [...] 1.49 K/ul 10/09/2016 Cbc With Differential Ord2 [place] ABS# 0.6 K/ul 10/09/2016 Cbc With Differential Ord2 Eos ABS# 0.1 K/ul 10/09/2016 Cbc With Differential Ord2 Baso ABS# 0.0 K/ul 10/09/2016 Review of Systems System Result Effective Dates Constitutional recent illness 11/28/2018 Constitutional anorexia 11/28/2018 Constitutional No night sweats 11/28/2018 Constitutional No chills 11/28/2018 Constitutional No diaphoresis 11/28/2018 Constitutional fatigue 11/28/2018 Constitutional No fever 11/28/2018 Constitutional No insomnia 11/28/2018 Constitutional No malaise 11/28/2018 Constitutional No weight loss 11/28/2018 Constitutional No weight gain 11/28/2018 Eyes No eye discharge 11/28/2018 Eyes No eye erythema 11/28/2018 Ears/Nose/Throat/Neck No dizziness 11/28/2018 Cardiovascular No chest pain/pressure 11/28/2018 Respiratory No cough 11/28/2018 Gastrointestinal No abdominal pain 11/28/2018 Gastrointestinal No constipation 11/28/2018 Gastrointestinal diarrhea 11/28/2018 Gastrointestinal nausea 11/28/2018 Gastrointestinal No vomiting 11/28/2018 Genitourinary/Nephrology No dysuria 11/28/2018 Musculoskeletal joint complaint 11/28/2018 Dermatologic No rash 11/28/2018 Neurologic No alteration of consciousness 11/28/2018 Psychiatric anxiety 11/28/2018 Psychiatric depression 11/28/2018 Endocrine No dry or coarse skin 11/28/2018 Constitutional recent illness 09/26/2018 Constitutional No anorexia [...] 1994 Constitutional general appearance Overall: well developed 11/28/2018 None Full Exam - General 1994 Constitutional general appearance Overall: in no acute distress 11/28/2018 None Full Exam - General 1994 Constitutional general appearance Overall: well nourished 11/28/2018 None Full Exam - General 1994 Constitutional general appearance Assistive Device: wheelchair 11/28/2018 None Full Exam - General 1994 Eyes conjunctiva/eyelids Overall: conjunctiva clear 11/28/2018 None Full Exam - General 1994 Eyes pupils and irises Overall: pupils equal, round, reactive to light and accomodation 11/28/2018 None Full Exam - General 1994 Ears/Nose/Throat lips/teeth/gingiva Teeth: wears dentures 11/28/2018 None Full Exam - General 1994 Respiratory auscultation Overall: breath sounds clear bilaterally 11/28/2018 None Full Exam - General 1994 Respiratory respiratory effort/rhythm Overall: no retractions 11/28/2018 None Full Exam - General 1994 Respiratory respiratory effort/rhythm Overall: normal rate 11/28/2018 None Full Exam - General 1994 Cardiovascular extremities Overall: no clubbing 11/28/2018 None Full Exam - General 1994 Cardiovascular auscultation of heart Overall: regular rate 11/28/2018 None Full Exam - General 1995 Cardiovascular auscultation of heart Overall: normal heart sounds 11/28/2018 None Full Exam - General 1994 Cardiovascular auscultation of heart Systolic murmur: holosystolic 11/28/2018 None Full Exam - General 1994 Cardiovascular auscultation of heart Systolic murmur grade: II/ 11/28/2018 None Full Exam - General 1995 Abdomen abdominal exam Overall: no tenderness 11/28/2018 None Full Exam - General 1995 Abdomen abdominal exam Overall: normal bowel sounds 11/28/2018 None Full Exam - General 1995 Lymphatic neck nodes Overall: anterior cervical chain benign 11/28/2018 None Full Exam - General 1995 Lymphatic neck nodes Overall: posterior cervical chain benign 11/28/2018 None Full Exam - General 1994 Musculoskeletal upper extremity Overall: upper arm non-tender, without crepitus or defects 11/28/2018 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 Full Exam - General 1994 Musculoskeletal gait and station Overall: normal gait 11/28/2018 None Full Exam - General 1994 Musculoskeletal gait and station Overall: normal station 11/28/2018 None Full Exam - General 1994 Musculoskeletal head and neck Overall: head atraumatic 11/28/2018 None Full Exam - General 1994 Integument inspection of skin Overall: few scattered moles, no gross abnormalities 11/28/2018 None Full Exam - General 1994 Neurologic cranial nerves Overall: crainial nerves 2 - 12 grossly intact 11/28/2018 None Full Exam - General 1994 Psychiatric orientation/consciousness Overall: oriented to person, place and time 11/28/2018 None Full Exam - General 1994 Psychiatric mood and affect Mood: depressed 11/28/2018 None Full Exam - General 1994 Psychiatric mood and affect Mood: anxious 11/28/2018 None Full Exam - General 1994 Psychiatric mood and affect Affect: mood congruent 11/28/2018 None Full Exam - General 1994 Constitutional [...] 1994 Ears/Nose/Throat lips/teeth/gingiva Teeth: wears dentures 10/29/2017 [facility] Full Exam - General [...] 1994 Ears/Nose/Throat lips/teeth/gingiva Teeth: wears dentures 02/01/2017 [facility] Full Exam - General [...] No Procedures data Vital Signs Date Vital 11/28/2018 Blood Pressure 1: 150/80 Code: 8480-6 Heart Rate 1: 97 bpm Height: SpO2: 95% Weight: 132 lbs 09/26/2018 Blood Pressure 1: 136/70 Code: 8480-6 [...] 1: 164/82 Code: 8480-6 BMI: 26.0 Code: 42514-0 Heart Rate 1: 120 bpm Height: 5'5" SpO2: 95% Weight: 156 lbs 08/21/2016 Blood Pressure 1: 166/80 Code: 8480-6 BMI: 25.8 Code: 82914-1 Heart Rate 1: 105 bpm Height: 5'5" SpO2: 95% Weight: 155 lbs 05/28/2016 Blood Pressure 1: 142/74 Code: 8480-6 BMI: 25.3 Code: 03904-5 Heart Rate 1: 104 bpm Height: 5'5" SpO2: 96% Weight: 152 lbs 02/28/2016 Blood Pressure 1: 130/70 Code: 8480-6 BMI: 26.0 Code: 96563-6 Heart Rate 1: 100 bpm Height: 5'5" SpO2: 96% Weight: 156 lbs 11/29/2015 Blood Pressure 1: 130/70 Code: 8480-6 BMI: 25.5 Code: 21597-6 Heart Rate 1: 86 bpm Height: 5'5" SpO2: 96% Weight: 153 lbs Functional Status No Functional Status data History of Present Illness Symptom Name Status Result Effective Date Notes _ infection 11/28/2018 None Quality acute illness 11/28/2018 None Pertinent Findings Denies pain 11/28/2018 None Quality bilious 11/28/2018 None Onset and Resolution gradual in onset 11/28/2018 None Onset of Symptom Denies _ days ago 11/28/2018 None Frequency of Episodes daily 11/28/2018 None Pertinent Findings Denies bloating 11/28/2018 None Pertinent Findings Denies nausea 11/28/2018 None Severity mild 11/28/2018 None Frequency of Episodes decreasing 11/28/2018 None Triggers no known associated factors 11/28/2018 None Quality intermittent 09/26/2018 None _ infection 09/26/2018 [...] data Encounters Encounter Performer Location Codes Date [phone]) [id number] EST. PATIENT, LEVEL IV Diagnosis: Urinary tract infection, site not specified[ICD10: N39.0] Diagnosis: Hypomagnesemia[ICD10: E83.42] Diagnosis: Essential (primary) hypertension[ICD10: I10] Diagnosis: Generalized anxiety disorder[ICD10: F41.1] Morenita Davenport MD, [facility] CPT-4: 25967 11/28/2018 ([id number]) [id number] EST. PATIENT, LEVEL IV Diagnosis: Essential (primary) hypertension[ICD10: I10] Diagnosis: Generalized anxiety disorder[ICD10: F41.1] Diagnosis: Pneumonia, unspecified organism[ICD10: J18.9] Diagnosis: Urinary tract infection, site not specified[ICD10: N39.0] Morenita Davenport MD, [facility] CPT-4: 13372 09/26/2018 ([id number]) [phone] EST. PATIENT, LEVEL IV Diagnosis: Slow transit constipation[ICD10: K59.01] Diagnosis: Generalized anxiety disorder[ICD10: F41.1] Diagnosis: Essential (primary) hypertension[ICD10: I10] Morenita Davenport MD, [facility] CPT-4: 44271 05/26/2018 [id number]) [id number] EST. PATIENT, LEVEL IV Diagnosis: Essential (primary) hypertension[ICD10: I10] Diagnosis: Generalized anxiety disorder[ICD10: F41.1] Diagnosis: Other insomnia[ICD10: G47.09] Morenita Davenport MD, [facility] CPT-4: 02557 04/24/2018 ([id number]) 77548 EST. PATIENT, LEVEL IV Diagnosis: Essential (primary) hypertension[ICD10: I10] Diagnosis: Generalized anxiety disorder[ICD10: F41.1] Diagnosis: Major depressive disorder, recurrent, mild[ICD10: F33.0] Diagnosis: Unsteadiness on feet[ICD10: R26.81] Morenita Davenport MD, [facility] CPT-4: 65584 12/31/2017 [id number] EST. PATIENT, LEVEL IV Diagnosis: Essential (primary) hypertension[ICD10: I10] Diagnosis: Hypoxemia[ICD10: R09.02] Diagnosis: Sleep related hypoventilation in conditions classified elsewhere[ICD10: G47.36] Tia Davenport MD, [facility] CPT-4: 24611 10/29/2017 ([id number]) [id number] EST. PATIENT, LEVEL IV Diagnosis: Essential (primary) hypertension[ICD10: I10] Diagnosis: Generalized anxiety disorder[ICD10: F41.1] Diagnosis: Major depressive disorder, recurrent, mild[ICD10: F33.0] Morenita Davenport MD, [facility] CPT-4: 91126 02/01/2017 ([id number]) [id number] EST. PATIENT, LEVEL IV Diagnosis: Essential (primary) hypertension[ICD10: I10] Diagnosis: Generalized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
--- OUTSIDE RECORDS SUMMARY | 2018-12-04 22:55 | XMS REPORT | CCD ---
Author Author Morenita Don MD, [facility] Address [address] [place] [address] Phone Care Team Providers Care Awake Overnight Counselor Name Role Phone PP Unavailable CCM Unavailable Summary Purpose Interface Exchange Insurance Providers Payer name Policy type / Coverage type Covered green party ID Effective Begin Date Effective End Date [facility] Medicare Part B [id number] 2018 Unknown Family history Father Diagnosis Age At Onset Myocardial infarction Unknown Mother Diagnosis Age At Onset Myocardial infarction Unknown Social History Social History Element Codes Description Effective Dates Marital status Unknown 11/29/2015 Number of children Unknown 2 son at 3hrs old 11/29/2015 Employment Unknown Retired 11/29/[address]: 825409511 Never smoker 11/29/[address]: 157673279 Never drinks alcohol 11/29/2015 Allergies, Adverse Reactions, [...] Start Date Stop Date Status Fill Instructions metoprolol succinate ER 25 mg tablet,extended release 24 hr RxNorm: 081207 1 Tablet(s) PO BID 11/28/2018 08/24/2019 Active potassium chloride ER 10 mEq tablet,extended release RxNorm: 340035 TAKE 2 TABLETS BY MOUTH ONCE DAILY 11/17/2018 No Stop Date Active clonazepam 1 mg tablet RxNorm: 904907 1 Tablet(s) PO TID PRN 11/17/2018 02/14/2019 Active omeprazole 20 mg capsule,delayed release RxNorm: 046991 1 Capsule(s) PO daily TAKE ONE CAPSULE BY MOUTH ONCE DAILY 09/26/2018 03/24/2019 Active Diflucan 150 mg tablet RxNorm: 767784 1 Tablet(s) PO QW 09/26/2018 10/25/2018 Inactive metoprolol succinate ER 25 mg tablet,extended release 24 hr RxNorm: 749782 1 Tablet(s) PO daily 09/26/2018 11/27/2018 Inactive clonazepam 1 mg tablet RxNorm: 168744 1 Tablet(s) PO TID PRN 08/12/2018 11/08/2018 Inactive Mobic 15 mg tablet RxNorm: 807907 TAKE ONE TABLET BY MOUTH ONCE DAILY 08/11/2018 No Stop Date Active amlodipine 10 mg tablet RxNorm: 919854 TAKE ONE TABLET BY MOUTH ONCE DAILY 08/11/2018 09/25/2018 Inactive lisinopril 10 mg tablet RxNorm: 779466 TAKE ONE TABLET BY MOUTH ONCE DAILY 07/21/2018 09/25/2018 Inactive potassium chloride ER 10 mEq tablet,extended release RxNorm: 112057 TAKE TWO TABLETS BY MOUTH ONCE DAILY 07/01/2018 11/16/2018 Inactive simvastatin 20 mg tablet RxNorm: 075405 TAKE ONE TABLET BY MOUTH ONCE DAILY IN THE EVENING 06/17/2018 11/27/2018 Inactive omeprazole 20 mg capsule,delayed release RxNorm: 404167 TAKE ONE CAPSULE BY MOUTH ONCE DAILY 06/09/2018 09/25/2018 Inactive clonazepam 1 mg tablet RxNorm: 357241 1 Tablet(s) PO TID PRN 05/26/2018 08/11/2018 Inactive Miralax 17 gram oral powder packet RxNorm: 573328 1 packet PO every other day 05/26/2018 11/27/2018 Inactive melatonin 3 mg tablet RxNorm: 663000 1-2 Tablet(s) PO HS PRN 04/24/2018 No Stop Date Active citalopram 40 mg tablet RxNorm: 238934 1 Tablet(s) PO daily 04/24/2018 10/20/2018 Inactive clonazepam 1 mg tablet RxNorm: 682431 1 Tablet(s) PO TID 04/09/2018 08/11/2018 Inactive citalopram 20 mg tablet RxNorm: 555614 1 Tablet(s) PO daily 01/23/2018 04/23/2018 Inactive metoprolol succinate ER 25 mg tablet,extended release 24 hr RxNorm: 077103 1 Tablet(s) PO daily 01/20/2018 09/25/2018 Inactive citalopram 10 mg tablet RxNorm: 122042 1 Tablet(s) PO daily 12/31/2017 01/22/2018 Inactive clonazepam 1 mg tablet RxNorm: 595918 1 Tablet(s) PO TID 10/09/2017 05/25/2018 Inactive omeprazole 20 mg capsule,delayed release RxNorm: 908355 Capsule(s) TAKE 1 CAPSULE BY MOUTH EVERY DAY 06/03/2017 02/27/2018 Inactive Mobic 15 mg tablet RxNorm: 700149 Tablet(s) 1 TABLET(S) PO DAILY 06/03/2017 02/27/2018 Inactive amlodipine 10 mg tablet RxNorm: 867133 Tablet(s) TAKE 1 TABLET BY MOUTH EVERY DAY 06/03/2017 02/27/2018 Inactive metoprolol succinate ER 25 mg tablet,extended release 24 hr RxNorm: 236115 1 Tablet(s) PO daily 06/03/2017 01/19/2018 Inactive lisinopril 10 mg tablet RxNorm: 202554 Tablet(s) TAKE 1 TABLET BY MOUTH EVERY DAY 06/03/2017 02/27/2018 Inactive Lexapro 20 mg tablet RxNorm: 185191 1 Tablet(s) PO QPM 06/03/2017 12/30/2017 Inactive clonazepam 1 mg tablet RxNorm: 418338 1 Tablet(s) PO TID 06/03/2017 10/08/2017 Inactive potassium chloride ER 10 mEq tablet,extended release RxNorm: 704514 Tablet(s) TAKE 2 TABLETS BY MOUTH EVERY DAY 06/03/2017 02/27/2018 Inactive simvastatin 20 mg tablet RxNorm: 859872 Tablet(s) 1 TABLET(S) PO QPM 06/03/2017 02/27/2018 Inactive Mobic 15 mg tablet RxNorm: 011025 1 TABLET(S) PO DAILY 04/23/2017 06/02/2017 Inactive lisinopril 10 mg tablet RxNorm: 791252 TAKE 1 TABLET BY MOUTH EVERY DAY 04/05/2017 06/02/2017 Inactive metoprolol succinate ER 25 mg tablet,extended release 24 hr RxNorm: 034761 1 Tablet(s) PO daily 02/01/2017 06/02/2017 Inactive Lexapro 20 mg tablet RxNorm: 765787 1 Tablet(s) PO QPM TAKE 1 TABLET BY MOUTH EVERY EVENING 02/01/2017 02/01/2017 Inactive Lexapro 20 mg tablet RxNorm: 200866 1 Tablet(s) PO QPM 1 TABLET(S) PO QPM TAKE 1 TABLET BY MOUTH EVERY EVENING 02/01/2017 06/02/2017 Inactive Patient requests 90 days supply clonazepam 1 mg tablet RxNorm: 888548 1 Tablet(s) PO TID 02/01/2017 06/02/2017 Inactive Lexapro 20 mg tablet RxNorm: 385487 1 Tablet(s) PO QPM 1 TABLET(S) PO QPM TAKE 1 TABLET BY MOUTH EVERY EVENING 02/01/2017 01/31/2017 Inactive Patient requests 90 days supply metoprolol succinate ER 25 mg tablet,extended release 24 hr RxNorm: 427230 1 Tablet(s) PO daily 02/01/2017 01/31/2017 Inactive amlodipine 10 mg tablet RxNorm: 607136 TAKE 1 TABLET BY MOUTH EVERY DAY 01/15/2017 06/02/2017 Inactive potassium chloride ER 10 mEq tablet,extended release RxNorm: 606744 TAKE 2 TABLETS BY MOUTH EVERY DAY 12/04/2016 06/02/2017 Inactive Lexapro 20 mg tablet RxNorm: 405072 TAKE 1 TABLET BY MOUTH EVERY EVENING 11/12/2016 01/31/2017 Inactive omeprazole 20 mg capsule,delayed release RxNorm: 198419 TAKE 1 CAPSULE BY MOUTH EVERY DAY 10/29/2016 10/28/2016 Inactive omeprazole 20 mg capsule,delayed release RxNorm: 206474 TAKE 1 CAPSULE BY MOUTH EVERY DAY 10/29/2016 06/02/2017 Inactive L-Methylfolate 15 mg tablet RxNorm: 1 Tablet(s) PO daily 10/08/2016 01/31/2017 Inactive clonazepam 1 mg tablet RxNorm: 797131 1 Tablet(s) PO BID 08/31/2016 01/31/2017 Inactive L-Methylfolate 15 mg tablet RxNorm: 1 Tablet(s) PO daily 08/28/2016 10/07/2016 Inactive lisinopril 20 mg tablet RxNorm: 142484 1 Tablet(s) PO daily 08/21/2016 11/18/2016 Inactive lisinopril 20 mg tablet RxNorm: 484464 1 Tablet(s) PO daily 08/21/2016 11/18/2016 Inactive Deplin (algal oil) 15 mg-90.314 mg capsule RxNorm: 1 Capsule(s) PO daily 08/21/2016 08/27/2016 Inactive Lexapro 20 mg tablet RxNorm: 557743 1 TABLET(S) PO QPM 07/27/2016 12/30/2017 Inactive simvastatin 20 mg tablet RxNorm: 027299 1 TABLET(S) PO QPM 05/24/2016 11/19/2016 Inactive Patient requests 90 days supply simvastatin 20 mg tablet RxNorm: 435052 1 Tablet(s) PO QPM 05/23/2016 05/23/2016 Inactive Lexapro 20 mg tablet RxNorm: 173448 1 Tablet(s) PO QPM 02/28/2016 02/28/2016 Inactive Lexapro 20 mg tablet RxNorm: 181336 1 Tablet(s) PO QPM 1 TABLET(S) PO QPM 02/28/2016 12/30/2017 Inactive Patient requests 90 days supply potassium chloride ER 10 mEq tablet,extended release RxNorm: 338547 TAKE 2 TABLETS BY MOUTH EVERY DAY 02/27/2016 11/22/2016 Inactive citalopram 20 mg tablet RxNorm: 964887 1 Tablet(s) PO QAM 02/27/2016 02/27/2016 Inactive clonazepam 1 mg tablet RxNorm: 242363 1 Tablet(s) PO BID 02/27/2016 12/30/2017 Inactive tramadol 50 mg tablet RxNorm: 813703 1 Tablet(s) PO Q6 as needed for pain 02/27/2016 11/27/2018 Inactive omeprazole 20 mg capsule,delayed release RxNorm: 236370 TAKE 1 CAPSULE BY MOUTH EVERY DAY 02/13/2016 10/28/2016 Inactive Mobic 15 mg tablet RxNorm: 590191 1 Tablet(s) PO daily 02/10/2016 02/03/2017 Inactive Multiple Vitamins Daily tablet RxNorm: 1 Tablet(s) PO daily 11/29/2015 12/28/2015 Inactive amlodipine 10 mg tablet RxNorm: 580444 1 Tablet(s) PO daily 11/29/2015 12/30/2017 Inactive simvastatin 20 mg tablet RxNorm: 852141 1 Tablet(s) PO QPM 11/29/2015 12/28/2015 Inactive clonazepam 1 mg tablet RxNorm: 730875 1 Tablet(s) PO Q12H 11/29/2015 12/30/2017 Inactive Colace 100 mg capsule RxNorm: 1554156 1 Capsule(s) PO daily 11/29/2015 11/29/2015 Inactive citalopram 20 mg tablet RxNorm: 047909 1 Tablet(s) PO QAM 11/29/2015 12/28/2015 Inactive Mobic 15 mg tablet RxNorm: 035340 1 Tablet(s) PO daily 11/29/2015 12/30/2017 Inactive potassium chloride ER 10 mEq tablet,extended release RxNorm: 842426 2 Tablet(s) PO daily 20meq daily 11/29/2015 12/28/2015 Inactive lisinopril 10 mg tablet RxNorm: 882516 1 Tablet(s) PO daily 11/29/2015 12/30/2017 Inactive Coricidin HBP 10 mg-200 mg capsule RxNorm: 6464976 1 Capsule(s) PO PRN No Start Date Active cranberry 400 mg capsule RxNorm: 263351 1 Capsule(s) PO daily No Start Date Active Vitamin D3 1,000 unit tablet RxNorm: 293195 1 Tablet(s) PO daily No Start Date Active docusate sodium 100 mg tablet RxNorm: 3648293 1 Tablet(s) PO daily No Start Date Active Mobic 15 mg tablet RxNorm: 314298 1 Tablet(s) PO daily No Start Date 02/09/2016 Inactive Vitamin D3 1,000 unit tablet RxNorm: 867828 1 Tablet(s) PO daily No Start Date 06/02/2017 Inactive omeprazole 20 mg tablet,delayed release RxNorm: 444163 1 Tablet(s) PO daily No Start Date 06/02/2017 Inactive potassium chloride ER 10 mEq tablet,extended release RxNorm: 268450 2 Tablet(s) PO daily No Start Date 06/02/2017 Inactive clonazepam 1 mg tablet RxNorm: 763213 1 Tablet(s) PO BID No Start Date 02/26/2016 Inactive Aleve PM 220 mg-25 mg tablet RxNorm: 3849276 1 Tablet(s) PO daily No Start Date 05/27/2016 Inactive amlodipine 10 mg tablet RxNorm: 827240 1 Tablet(s) PO daily No Start Date 01/14/2017 Inactive lisinopril 10 mg tablet RxNorm: 905192 1 Tablet(s) PO daily No Start Date 08/20/2016 Inactive tramadol 50 mg tablet RxNorm: 141841 1 Tablet(s) PO Q6 PRN No Start Date 02/26/2016 Inactive Ultram 50 mg tablet RxNorm: 972117 1 Tablet(s) PO Q6 as needed No Start Date 11/28/2015 Inactive simvastatin 20 mg tablet RxNorm: 342895 1 Tablet(s) PO QHS No Start Date 06/02/2017 Inactive citalopram 20 mg tablet RxNorm: 646322 1 Tablet(s) PO daily No Start Date 02/26/2016 Inactive lisinopril 10 mg tablet RxNorm: 474596 1 Tablet(s) PO daily No Start Date 04/04/2017 Inactive omeprazole 20 mg capsule,delayed release RxNorm: 611952 1 Capsule(s) PO daily No Start Date [...] Item Item Code Result Date Comp Metabolic Twl297 NA 136 mEq/L 11/28/2018 Comp Metabolic Ytd027 K 3.7 mEq/L 11/28/2018 Comp Metabolic Mke313 CL 96 mEq/L 11/28/2018 Comp Metabolic Mrm838 CO2 29.0 mEq/L 11/28/2018 Comp Metabolic Php715 ANION GAP 15 11/28/2018 Comp Metabolic Kuh496 GLUCOSE 145 mg/dL 11/28/2018 Comp Metabolic Dox072 Creat 0.7 mg/dL 11/28/2018 Comp Metabolic Msh862 eGFR 84 ml/min/1.73m2 11/28/2018 Comp Metabolic Sga100 BUN 9 mg/dL 11/28/2018 Comp Metabolic Yzn641 B/C Ratio 12.9 Ratio 11/28/2018 Comp Metabolic Pvo061 CALCIUM 10.2 mg/dL 11/28/2018 Comp Metabolic Ggz557 ALK PHOS 60 U/L 11/28/2018 Comp Metabolic Dxn353 AST(SGOT) 26 U/L 11/28/2018 Comp Metabolic Eut848 ALT(SGPT) 14 U/L 11/28/2018 Comp Metabolic Uhi891 BILI T 0.5 mg/dL 11/28/2018 Comp Metabolic Sml585 ALBUMIN 3.8 g/dL 11/28/2018 Comp Metabolic Bli853 TPRO 7.1 g/dL 11/28/2018 Comp Metabolic Ssl561 GLOB 3.3 g/dL 11/28/2018 Comp Metabolic Zpu990 A/G Ratio 1.1 Ratio 11/28/2018 Comp Metabolic Nxj235 Osmo 273 mOsmo 11/28/2018 Cbc With Differential [...] 20.8 % 11/28/2018 Cbc With Differential Ord2 Dupage% 10.0 % 11/28/2018 Cbc With Differential Ord2 [...] 1.82 K/ul 11/28/2018 Cbc With Differential Ord2 Dupage ABS# 0.9 K/ul 11/28/2018 Cbc With Differential Ord2 Eos ABS# 0.1 K/ul 11/28/2018 Cbc With Differential Ord2 Baso ABS# 0.0 K/ul 11/28/2018 Magnesium Ord90 Mag 1.6 mg/dL 11/28/2018 Lipid Ord30 CHOL 155 mg/dL 10/09/2016 Lipid Ord30 HDL 55.0 mg/dl 10/09/2016 Lipid Ord30 TRIG 121 mg/dL 10/09/2016 Lipid Ord30 LDL 76 mg/dL 10/09/2016 Lipid Ord30 C/HDL 2.8 Ratio 10/09/2016 Comp Metabolic Cev686 NA 136 mEq/L 10/09/2016 Comp Metabolic Ycn834 K 4.9 mEq/L 10/09/2016 Comp Metabolic Ohh405 CL 97 mEq/L 10/09/2016 Comp Metabolic Qth186 CO2 30.0 mEq/L 10/09/2016 Comp Metabolic Tpe954 ANION GAP 14 10/09/2016 Comp Metabolic Oqc216 GLUCOSE 66 mg/dL 10/09/2016 Comp Metabolic Mgv353 Creat 0.9 mg/dL 10/09/2016 Comp Metabolic Xgr009 eGFR 64 ml/min/1.73m2 10/09/2016 Comp Metabolic Uun752 BUN 13 mg/dL 10/09/2016 Comp Metabolic Ort437 B/C Ratio 14.6 Ratio 10/09/2016 Comp Metabolic Emo698 CALCIUM 10.0 mg/dL 10/09/2016 Comp Metabolic Kkw727 ALK PHOS 59 U/L 10/09/2016 Comp Metabolic Hbn079 AST(SGOT) 20 U/L 10/09/2016 Comp Metabolic Ihi946 ALT(SGPT) 9 U/L 10/09/2016 Comp Metabolic Tao700 BILI T 0.4 mg/dL 10/09/2016 Comp Metabolic Ffx127 ALBUMIN 4.1 g/dL 10/09/2016 Comp Metabolic Rlz773 TPRO 7.1 g/dL 10/09/2016 Comp Metabolic Qql676 GLOB 3.0 g/dL 10/09/2016 Comp Metabolic Giz980 A/G Ratio 1.4 Ratio 10/09/2016 Comp Metabolic Kep421 Osmo 270 mOsmo 10/09/2016 Tsh Ord6 hTSH [...] 31.2 pg 10/09/2016 Cbc With Differential Ord2 Dupage% 13.7 % 10/09/2016 Cbc With Differential Ord2 [...] 1.49 K/ul 10/09/2016 Cbc With Differential Ord2 Dupage ABS# 0.6 K/ul 10/09/2016 Cbc With Differential [...] 1994 Ears/Nose/Throat lips/teeth/gingiva Teeth: wears dentures 12/31/2017 [facility] Full Exam - General 1994 Respiratory auscultation Overall: breath sounds clear bilaterally 12/31/2017 None Full Exam - General 1994 Respiratory respiratory effort/rhythm Overall: no retractions 12/31/2017 None Full Exam - General 1994 Respiratory respiratory effort/rhythm Overall: normal rate 12/31/2017 None Full Exam - General 1994 Cardiovascular extremities Overall: no clubbing 12/31/2017 None Full Exam - General 1995 Cardiovascular [...] tenderness 12/31/2017 None Full Exam - General 1995 Abdomen abdominal exam Overall: normal bowel sounds 12/31/2017 None Full Exam - General 1995 Lymphatic [...] 1994 Ears/Nose/Throat lips/teeth/gingiva Teeth: wears dentures 10/29/2017 [facility] Full Exam - General 1994 Respiratory respiratory [...] 1994 Ears/Nose/Throat lips/teeth/gingiva Teeth: wears dentures 02/01/2017 [facility] Full Exam - General 1994 [...] 1994 Ears/Nose/Throat lips/teeth/gingiva Teeth: wears dentures 02/28/2016 [facility] Full Exam - General 1994 [...] 1: 164/82 Code: 8480-6 BMI: 26.0 Code: 95192-4 Heart Rate 1: 120 bpm Height: 5'5" SpO2: 95% Weight: 156 lbs 08/21/2016 Blood Pressure 1: 166/80 Code: 8480-6 BMI: 25.8 Code: 48456-0 Heart Rate 1: 105 bpm Height: 5'5" SpO2: 95% Weight: 155 lbs 05/28/2016 Blood Pressure 1: 142/74 Code: 8480-6 BMI: 25.3 Code: 91023-5 Heart Rate 1: 104 bpm Height: 5'5" SpO2: 96% Weight: 152 lbs 02/28/2016 Blood Pressure 1: 130/70 Code: 8480-6 BMI: 26.0 Code: 94387-3 Heart Rate 1: 100 bpm Height: 5'5" SpO2: 96% Weight: 156 lbs 11/29/2015 Blood Pressure 1: 130/70 Code: 8480-6 BMI: 25.5 Code: 55297-8 Heart Rate 1: 86 bpm Height: 5'5" [...] data Encounters Encounter Performer Location Codes Date ([id number]) [id number] EST. PATIENT, LEVEL IV Diagnosis: Urinary tract infection, site not specified[ICD10: N39.0] Diagnosis: Hypomagnesemia[ICD10: E83.42] Diagnosis: Essential (primary) hypertension[ICD10: I10] Diagnosis: Generalized anxiety disorder[ICD10: F41.1] Morenita Davenport MD, [facility] CPT-4: 44312 11/28/2018 ([id number]) 66905 EST. PATIENT, LEVEL IV Diagnosis: Essential (primary) hypertension[ICD10: I10] Diagnosis: Generalized anxiety disorder[ICD10: F41.1] Diagnosis: Pneumonia, unspecified organism[ICD10: J18.9] Diagnosis: Urinary tract infection, site not specified[ICD10: N39.0] Morenita Davenport MD, [facility] CPT-4: 23700 09/26/2018 ([id number]) 16316 EST. PATIENT, LEVEL IV Diagnosis: Slow transit constipation[ICD10: K59.01] Diagnosis: Generalized anxiety disorder[ICD10: F41.1] Diagnosis: Essential (primary) hypertension[ICD10: I10] Morenita Davenport MD, [facility] CPT-4: 15406 05/26/2018 ([id number]) 59581 EST. PATIENT, LEVEL IV Diagnosis: Essential (primary) hypertension[ICD10: I10] Diagnosis: Generalized anxiety disorder[ICD10: F41.1] Diagnosis: Other insomnia[ICD10: G47.09] Morenita Davenport MD, [facility] CPT-4: 07252 04/24/2018 ([id number]) 83791 EST. PATIENT, LEVEL IV Diagnosis: Essential (primary) hypertension[ICD10: I10] Diagnosis: Generalized anxiety disorder[ICD10: F41.1] Diagnosis: Major depressive disorder, recurrent, mild[ICD10: F33.0] Diagnosis: Unsteadiness on feet[ICD10: R26.81] Morenita Davenport MD, [facility] CPT-4: 76636 12/31/2017 [id number] EST. PATIENT, LEVEL IV Diagnosis: Essential (primary) hypertension[ICD10: I10] Diagnosis: Hypoxemia[ICD10: R09.02] Diagnosis: Sleep related hypoventilation in conditions classified elsewhere[ICD10: G47.36] Tia Davenport MD, [facility] CPT-4: 22617 10/29/2017 ([id number]) 40369 EST. PATIENT, LEVEL IV Diagnosis: Essential (primary) hypertension[ICD10: I10] Diagnosis: Generalized anxiety disorder[ICD10: F41.1] Diagnosis: Major depressive disorder, recurrent, mild[ICD10: F33.0] Morenita Dvaenport MD, [facility] CPT-4: 00173 02/01/2017 ([id number]) 17881 EST. PATIENT, LEVEL IV Diagnosis: Essential (primary) hypertension[ICD10: I10] Diagnosis: Generalized anxiety disorder[ICD10: F41.1] Diagnosis: Major depressive disorder, recurrent, mild[ICD10: F33.0] Morenita Davenport MD, [facility] CPT-4: 23350 08/21/2016 ([id number]) 79600 EST. PATIENT, LEVEL IV Diagnosis: Generalized anxiety disorder[ICD10: F41.1] Diagnosis: Essential (primary) hypertension[ICD10: I10] Diagnosis: Gastro-esophageal reflux disease without esophagitis[ICD10: K21.9] Morenita Davenport MD, [facility] CPT-4: 90796 05/28/2016 ([id number]) 28469 EST. PATIENT, LEVEL IV Diagnosis: Generalized anxiety disorder[ICD10: F41.1] Diagnosis: Major depressive disorder, recurrent, mild[ICD10: F33.0] Diagnosis: Essential (primary) hypertension[ICD10: I10] [facility] CPT-4: 19720 02/28/2016 ([id number]) OFFICE VISIT, NEW - LEVEL 4 Diagnosis: Essential (primary) hypertension[ICD10: I10] Diagnosis: Generalized anxiety disorder[ICD10: F41.1] Diagnosis: Mixed hyperlipidemia[ICD10: E78.2] Diagnosis: Major depressive disorder, recurrent, mild[ICD10: F33.0] [facility] CPT-4: 96536 11/29/2015 Plan of Care Planned Activity Notes Codes Status Date Visit Plan: UTI -hospital follow up -finish abx and monitor symptoms HTN -slightly elevated today -continue to monitor Anxiety -continue colonazepam Diarrhea -cdiff negative in the hospital -start probiotics twice daily Low magnesium -repeat labs today 11/28/2018 Appointment: Morenita Don WPtel: [facility] [phone] (30 min) Complex 11/28/2018 Patient Education: Patient Medication Summary Completed 11/28/2018 Patient Education: Hypertension Completed 11/28/2018 Appointment: Morenita Don WPtel: [address] [place] [address] (15 min) Moderate 11/25/2018 Visit Plan: Hypertension - well controlled - continue with current medications, continue with no added salt diet. Pt has been encouraged to exercise daily. The pt has been advised to call the office if there are any acute concerns about change in blood pressure readings at home. UTI-positive for yeast- will treat with diflucan weekly x 1 month Wunwxqcww-kqoedhod-ttmw to use oxygen prn Chronic Depression and anxiety - the pt has symptoms of chronic anxiety and depression that have been fairly well controlled since the last office visit. The pt has expected periods of exacerbation with abatement of the symptoms with change in situational exposure. No change in current medications. 09/26/2018 Appointment: Morenita Don WPtel: [address] [place] [address] (15 min) Moderate 09/26/2018 Patient Education: Patient Medication Summary Completed 09/26/2018 Patient Education: Hypertension Completed 09/26/2018 Appointment: Morenita Don WPtel: [address] [place], [place] [phone] (30 min) Complex 09/08/2018 Visit Plan: Constipation [...] pressure readings at home. 05/26/2018 Appointment: Morenita Dontel: [address] [place], [place] [phone] [place] [address] (15 min) Moderate 05/26/2018 Patient Education: Patient [...] 6mg as needed 04/24/2018 Appointment: Morenita Dontel: [address] [place], [place] [phone] [place] [address] (30 min) Complex 04/24/2018 Patient Education: Patient Medication Summary Completed 04/24/2018 Patient Education: Hypertension Completed 04/24/2018 Appointment: Morenita Don WPtel: [address] [place], [place] [phone] (30 min) Complex 04/17/2018 Appointment: Morenita Dontel: [address] [place], [place] [phone] (15 min) Moderate 04/04/2018 Appointment: Morenita Dontel: [address] [place], [place] [phone] (15 min) Moderate 03/06/2018 Appointment: Morenita Donl: [phone] [phone] (15 min) Moderate 01/31/2018 Visit Plan: Hypertension [...] understanding. 12/31/2017 [phone] (30 min) Complex 12/31/2017 Patient Education: Patient [...] or concerns. 10/29/2017 Appointment: [facility]el[facility] [phone] [facility] (30 min) Complex 10/29/2017 Patient Education: Patient Medication Summary Completed 10/29/2017 Appointment: Morenita Don WPtel: [facility] [id number] [place] [address] (30 min) Complex 08/20/2017 Visit Plan: Hypertension [...] pt is to call for acute concerns. Powrfaz-utpvgyanjz-vcgvwbjqn patient get rid of house guest-he is taking advantage of her and causing her undue stress and worry. Increase clonazepam to TID prn-follow up in 2 weeks. 02/01/2017 Appointment: Morenita Don WPtel: [facility] [phone] [place] [address] (15 min) Moderate 02/01/2017 Patient Education: Patient [...] pt is to call for acute concerns. Txunlfr-ehqjdvatux-hkd well controlled-add deplin-continue lexapro Patient has not had recent labs-will send orders for fasting labs 08/21/2016 Appointment: Morenita Don WPtel: [phone] [phone] (15 min) Moderate 08/21/2016 Patient Education: Patient [...] worse 05/28/2016 Appointment: Morenita Don WPtel: [phone] [phone] (15 min) Moderate 05/28/2016 Patient Education: Patient [...] at home. 02/28/2016 Appointment: [facility] Don [facility]el[facility] [phone] [phone] (30 min) Complex 02/28/2016 Patient Education: [...] medications. 11/29/2015 Appointment: [facility] Don [facility]el[facility] [phone] [phone] [place] New Patient 11/29/2015 Patient Education: [...] increase effectiveness of lexapro: Recommend filling at [facility] in [place] due to affordability. . Hypertension - uncontrolled [...] pt is to call for acute concerns. Jxbmssa-txcjbuuprn-esd well controlled-add deplin-continue lexapro Patient has not [...] pt is to call for acute concerns. Hvytoic-byffrxkyus-habudaipm patient get rid of house guest-he is [...] treat with diflucan weekly x 1 month Oeavwcmrw-bwnrbugb-mkuv to use oxygen prn Chronic Depression and anxiety - the pt has symptoms of chronic anxiety and depression that have been fairly well controlled since the last office visit. The pt has expected periods of exacerbation with abatement of the symptoms with change in situational exposure. No change in current medications.
--- OUTSIDE RECORDS SUMMARY | 2018-12-04 23:23 | XMS REPORT | Continuity of Care Document ---
Demographics Preferred Language Unknown Marital Status Unknown Pentecostal Affiliation Unknown Race Unknown Ethnic Group Unknown Author Organization Unknown Address Unknown Phone Unavailable Allergies Active Description Code Type Severity Reaction Onset Reported/Identified Relationship to Patient Clinical Status Yes PENICILLINS UNKNOWN UNKNOWN Yes Penicillins [id number] Drug Allergy Severe EDEMA 04/13/2018 Medications Medication [...] FALL FROM SLIPPING, TRIPPING, OR STUMBLI 10/24/2015 PATRICIO DELGADILLO NELSON Ot E78.5 HYPERLIPIDEMIA, UNSPECIFIED 10/24/2015 PATRICIO DELGADILLO [...] TEIXEIRA Ot D64.9 ANEMIA, UNSPECIFIED 10/29/2016 GEORGE TEIXEIRA Ot D72.819 DECREASED WHITE BLOOD CELL COUNT, UNSPEC 10/30/2016 GEORGE TEIXEIRA Ot D64.9 ANEMIA, UNSPECIFIED 10/30/2016 GEORGE TEIXEIRA Ot D72.819 DECREASED WHITE BLOOD [...] TEIXEIRA Ot D64.9 ANEMIA, UNSPECIFIED 08/09/2017 GEORGE TEIXEIRA Ot D72.819 DECREASED WHITE BLOOD CELL COUNT, UNSPEC 08/09/2017 ARIAN SALINAS MD Ot V58.61 ANTICOAGULANTS,LT,CURRENT USE 08/09/2017 ARIAN SALINAS MD Ot V58.83 ENCOUNTER FOR THERAPEUTIC DRUG MONITORIN 08/09/2017 ARIAN SALINAS MD Ot V54.13 [facility] TRAUMATIC FX HIP 08/09/2017 ARIAN SALINAS MD Ot V58.61 ANTICOAGULANTS,LT,CURRENT USE 08/09/2017 GEORGE TEIXEIRA Ot D64.9 ANEMIA, UNSPECIFIED 08/09/2017 GEORGE TEIXEIRA Ot D72.819 DECREASED WHITE BLOOD CELL COUNT, UNSPEC 08/13/2017 CHARLINE CABA, SHELLIE A Ot E78.00 PURE HYPERCHOLESTEROLEMIA, UNSPECIFIED 08/13/2017 CHARLINE CABA, SHELLIE Donato Ot E87.6 HYPOKALEMIA 08/13/2017 CHARLINE CABA, SHELLIE Donato Ot F32.9 MAJOR DEPRESSIVE DISORDER, SINGLE EPISOD 08/13/2017 CHARLINE CABA, SHELLIE Donato Ot F41.9 ANXIETY DISORDER, UNSPECIFIED 08/13/2017 CHARLINE CABA, SHELLIE Donato Ot H91.93 UNSPECIFIED HEARING LOSS, BILATERAL 08/13/2017 SHELLIE OLIVIER MD Ot I10 ESSENTIAL (PRIMARY) HYPERTENSION 08/13/2017 CHARLINE [...] SHELLIE OLIVIER MD Ot Y92.000 KITCHEN OF [facility] NON-INSTITUT (PRIVATE) R 08/13/2017 SHELLIE OLIVIER MD Ot Y92.003 [facility]RO[facility] OF [facility] NON-INSTITUT (PRIVATE) R 08/13/2017 SHELLIE OLIVIER [...] SHELLIE OLIVIER MD Ot Y92.000 [facility] OF [facility] NON-INSTITUT (PRIVATE) R 08/13/2017 SHELLIE OLIVIER MD Ot Y92.003 [facility] NON-INSTITUT (PRIVATE) R 08/13/2017 SHELLIE OLIVIER [...] MD Ot R53.1 WEAKNESS 04/14/2018 SHELLIE OLIVIER MD, Ot R54 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 04/14/2018 SHELLIE [...] MD Ot R53.1 WEAKNESS 04/17/2018 SHELLIE OLIVIER MD, Ot R54 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 04/17/2018 SHELLIE OLIVIER MD, Ot R63.0 ANOREXIA 04/17/2018 SHELLIE OLIVIER MD [...] Z66 DO NOT RESUSCITATE 04/18/2018 SHELLIE OLIVIER MD, Ot Z86.718 PERSONAL HISTORY [...] PRESENCE OF EXTERNAL HEARING-AID 04/18/2018 SHELLIE OLIVIER MD, Ot A41.9 SEPSIS, UNSPECIFIED ORGANISM 04/18/2018 SHELLIE [...] MD Ot F41.9 ANXIETY DISORDER, UNSPECIFIED 09/01/2018 SHELILE OLIVIER MD, Ot I10 ESSENTIAL (PRIMARY) HYPERTENSION 09/01/2018 CHARLINE CABA SHELLIE Donato Ot J18.1 LOBAR PNEUMONIA, UNSPECIFIED ORGANISM 09/01/2018 [...] Z99.3 DEPENDENCE ON WHEELCHAIR 09/19/2018 PRIETO, JAE RAW STOCK DRIER TENDER Ot E78.00 PURE HYPERCHOLESTEROLEMIA, UNSPECIFIED 09/19/2018 PRIETO, JAE RAW STOCK DRIER TENDER Ot F03.90 UNSPECIFIED DEMENTIA WITHOUT BEHAVIORAL 09/19/2018 PRIETO, JAE RAW STOCK DRIER TENDER Ot F32.9 MAJOR DEPRESSIVE DISORDER, SINGLE EPISOD 09/19/2018 PRIETO, JAE RAW STOCK DRIER TENDER Ot F41.9 ANXIETY DISORDER, UNSPECIFIED 09/19/2018 PRIETO, JAE RAW STOCK DRIER TENDER Ot I10 ESSENTIAL (PRIMARY) HYPERTENSION 09/19/2018 PRIETO, JAE RAW STOCK DRIER TENDER Ot 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 09/19/2018 PRIETO, JAE RAW STOCK DRIER TENDER Ot N39.0 URINARY TRACT INFECTION, SITE NOT SPECIF 09/19/2018 PRIETO JAE RAW STOCK DRIER TENDER Ot R41.82 ALTERED MENTAL STATUS, UNSPECIFIED 09/19/2018 PRIETO, JAE RAW STOCK DRIER TENDER Ot Z82.49 FAMILY HX OF ISCHEM HEART DIS AND OTH DI 09/19/2018 PRIETO JAE RAW STOCK DRIER TENDER Ot Z86.718 PERSONAL HISTORY OF OTHER VENOUS THROMBO 09/19/2018 PRIETO, JAE RAW STOCK DRIER TENDER Ot Z87.440 PERSONAL HISTORY OF URINARY (TRACT) [...] OTHER VENOUS THROMBOSIS AND EMBOLISM 09/24/2018 JAE MOREAU Ot E78.00 PURE HYPERCHOLESTEROLEMIA, UNSPECIFIED 09/24/2018 JAE MOREAUP Ot F03.90 UNSPECIFIED DEMENTIA WITHOUT BEHAVIORAL 09/24/2018 JAE MOREAUP Ot F32.9 MAJOR DEPRESSIVE DISORDER, SINGLE EPISOD 09/24/2018 JAE MOREAUP Ot F41.9 ANXIETY DISORDER, UNSPECIFIED 09/24/2018 PRIETO, JAE RAW STOCK DRIER TENDER Ot I10 ESSENTIAL (PRIMARY) HYPERTENSION 09/24/2018 PRIETO, JAE RAW STOCK DRIER TENDER Ot 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 09/24/2018 PRIETO, JAE RAW STOCK DRIER TENDER Ot N39.0 URINARY TRACT INFECTION, SITE NOT SPECIF 09/24/2018 PRIETO, JAE RAW STOCK DRIER TENDER Ot R41.82 ALTERED MENTAL STATUS, UNSPECIFIED 09/24/2018 PRIETO, JAE RAW STOCK DRIER TENDER Ot Z82.49 FAMILY HX OF ISCHEM HEART DIS AND OTH DI 09/24/2018 PRIETO, JAE RAW STOCK DRIER TENDER Ot Z86.718 PERSONAL HISTORY OF OTHER VENOUS THROMBO 09/24/2018 PRIETO, JAE RAW STOCK DRIER TENDER Ot Z87.440 PERSONAL HISTORY OF URINARY (TRACT) INFE 09/24/2018 PRIETO, JAE RAW STOCK DRIER TENDER Ot Z88.0 ALLERGY STATUS TO PENICILLIN 09/24/2018 PRIETO, JAE RAW STOCK DRIER TENDER Ot Z98.890 OTHER SPECIFIED POSTPROCEDURAL STATES 09/27/2018 PRIETO, JAE RAW STOCK DRIER TENDER Ot E78.00 PURE HYPERCHOLESTEROLEMIA, UNSPECIFIED 09/27/2018 PRIETO, JAE RAW STOCK DRIER TENDER Ot F03.90 UNSPECIFIED DEMENTIA WITHOUT BEHAVIORAL 09/27/2018 PRIETO, JAE RAW STOCK DRIER TENDER Ot F32.9 MAJOR DEPRESSIVE DISORDER, SINGLE EPISOD 09/27/2018 PRIETO, JAE RAW STOCK DRIER TENDER Ot F41.9 ANXIETY DISORDER, UNSPECIFIED 09/27/2018 PRIETO, JAE RAW STOCK DRIER TENDER Ot I10 ESSENTIAL (PRIMARY) HYPERTENSION 09/27/2018 PRIETO, JAE RAW STOCK DRIER TENDER Ot 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 09/27/2018 PRIETO, JAE RAW STOCK DRIER TENDER Ot N39.0 URINARY TRACT INFECTION, SITE NOT SPECIF 09/27/2018 PRIETO, JAE RAW STOCK DRIER TENDER Ot R41.82 ALTERED MENTAL STATUS, UNSPECIFIED 09/27/2018 PRIETO, JAE RAW STOCK DRIER TENDER Ot Z82.49 FAMILY HX OF ISCHEM HEART DIS AND OTH DI 09/27/2018 PRIETO, JAE RAW STOCK DRIER TENDER Ot Z86.718 PERSONAL HISTORY OF OTHER VENOUS THROMBO 09/27/2018 PRIETO, JAE RAW STOCK DRIER TENDER Ot Z87.440 PERSONAL HISTORY OF URINARY (TRACT) INFE 09/27/2018 PRIETO, JAE RAW STOCK DRIER TENDER Ot Z88.0 ALLERGY STATUS TO PENICILLIN 09/27/2018 PRIETO, JAE RAW STOCK DRIER TENDER Ot Z98.890 OTHER SPECIFIED POSTPROCEDURAL STATES 10/11/2018 WALLS, PETER J INSURANCE UNDERWRITER SALES Ot E78.00 PURE HYPERCHOLESTEROLEMIA, UNSPECIFIED 10/11/2018 ARIELA WALLS INSURANCE UNDERWRITER SALES Ot F03.90 UNSPECIFIED DEMENTIA WITHOUT BEHAVIORAL 10/11/2018 ARIELA WALLS INSURANCE UNDERWRITER SALES Ot F32.9 MAJOR DEPRESSIVE DISORDER, SINGLE EPISOD 10/11/2018 ARIELA WALLS INSURANCE UNDERWRITER SALES Ot F41.9 ANXIETY DISORDER, UNSPECIFIED 10/11/2018 ARIELA WALLS INSURANCE UNDERWRITER SALES Ot I10 ESSENTIAL (PRIMARY) HYPERTENSION 10/11/2018 ARIELA WALLS INSURANCE UNDERWRITER SALES Ot N39.0 URINARY TRACT INFECTION, SITE NOT SPECIF 10/11/2018 ARIELA WALLS APRN Ot R41.0 DISORIENTATION, UNSPECIFIED 10/11/2018 ARIELA WALLS INSURANCE UNDERWRITER SALES Ot R41.82 ALTERED MENTAL STATUS, UNSPECIFIED 10/11/2018 ARIELA WALLS INSURANCE UNDERWRITER SALES Ot Z82.49 FAMILY HX OF ISCHEM HEART DIS AND OTH DI 10/11/2018 ARIELA WALLS INSURANCE UNDERWRITER SALES Ot Z86.718 PERSONAL HISTORY OF OTHER VENOUS THROMBO 10/11/2018 ARIELA WALLS INSURANCE UNDERWRITER SALES Ot Z88.0 ALLERGY STATUS TO PENICILLIN 10/14/2018 ARIELA WALLS APRN Ot E78.00 PURE HYPERCHOLESTEROLEMIA, UNSPECIFIED 10/14/2018 ARIELA WALLS INSURANCE UNDERWRITER SALES Ot F03.90 UNSPECIFIED DEMENTIA WITHOUT BEHAVIORAL 10/14/2018 ARIELA WALLS INSURANCE UNDERWRITER SALES Ot F32.9 MAJOR DEPRESSIVE DISORDER, SINGLE EPISOD 10/14/2018 ARIELA WALLS INSURANCE UNDERWRITER SALES Ot F41.9 ANXIETY DISORDER, UNSPECIFIED 10/14/2018 ARIELA WALLS INSURANCE UNDERWRITER SALES Ot I10 ESSENTIAL (PRIMARY) HYPERTENSION 10/14/2018 ARIELA WALLS INSURANCE UNDERWRITER SALES Ot N39.0 URINARY TRACT INFECTION, SITE NOT SPECIF 10/14/2018 ARIELA WALLS INSURANCE UNDERWRITER SALES Ot R41.0 DISORIENTATION, UNSPECIFIED 10/14/2018 ARIELA WALLS INSURANCE UNDERWRITER SALES Ot R41.82 ALTERED MENTAL STATUS, UNSPECIFIED 10/14/2018 ARIELA WALLS INSURANCE UNDERWRITER SALES Ot Z82.49 FAMILY HX OF ISCHEM HEART DIS AND OTH DI 10/14/2018 ARIELA WALLS INSURANCE UNDERWRITER SALES Ot Z86.718 PERSONAL HISTORY OF OTHER VENOUS THROMBO 10/14/2018 ARIELA WALLS INSURANCE UNDERWRITER SALES Ot Z88.0 ALLERGY STATUS TO PENICILLIN 11/15/2018 JERSON BOWLES MD Ot B96.89 OTH BACTERIAL AGENTS THE CAUSE OF DIS 11/15/2018 JERSON BOWLES MD Ot E78.00 PURE HYPERCHOLESTEROLEMIA, UNSPECIFIED 11/15/2018 JERSON BOWLES MD Ot F03.90 UNSPECIFIED DEMENTIA WITHOUT BEHAVIORAL 11/15/2018 JERSON BOWLES MD Ot F32.9 MAJOR DEPRESSIVE DISORDER, SINGLE EPISOD 11/15/2018 JERSON BOWLES MD Ot F41.9 ANXIETY DISORDER, UNSPECIFIED 11/15/2018 JERSON BOWLES MD Ot I10 ESSENTIAL (PRIMARY) HYPERTENSION 11/15/2018 JERSON BOWLES MD Ot 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 11/15/2018 JERSON BOWLES MD Ot R19.7 DIARRHEA, UNSPECIFIED 11/15/2018 JERSON BOWLES MD Ot Z82.49 FAMILY HX OF ISCHEM HEART DIS AND OTH DI 11/15/2018 JERSON BOWLES MD Ot Z86.718 PERSONAL HISTORY OF OTHER VENOUS THROMBO 11/15/2018 JERSON BOWLES MD Ot Z87.440 PERSONAL HISTORY OF URINARY (TRACT) INFE 11/15/2018 JERSON BOWLES MD Ot Z88.0 ALLERGY STATUS TO PENICILLIN 11/21/2018 JERSON BOWLES MD Ot B96.89 OTH BACTERIAL AGENTS THE CAUSE OF DIS 11/21/2018 JERSON BOWLES MD Ot E78.00 PURE HYPERCHOLESTEROLEMIA, UNSPECIFIED 11/21/2018 JERSON BOWLES MD Ot F03.90 UNSPECIFIED DEMENTIA WITHOUT BEHAVIORAL 11/21/2018 JERSON BOWLES MD Ot F32.9 MAJOR DEPRESSIVE DISORDER, SINGLE EPISOD 11/21/2018 JERSON BOWLES MD Ot F41.9 ANXIETY DISORDER, UNSPECIFIED 11/21/2018 JERSON BOWLES MD Ot I10 ESSENTIAL (PRIMARY) HYPERTENSION 11/21/2018 JERSON BOWLES MD Ot 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 11/21/2018 JERSON BOWLES MD Ot R19.7 DIARRHEA, UNSPECIFIED 11/21/2018 JERSON BOWLES MD Ot Z82.49 FAMILY HX OF ISCHEM HEART DIS AND OTH DI 11/21/2018 JERSON BOWLES MD Ot Z86.718 PERSONAL HISTORY OF OTHER VENOUS THROMBO 11/21/2018 JERSON BOWLES MD Ot Z87.440 PERSONAL HISTORY OF URINARY (TRACT) INFE 11/21/2018 JERSON BOWLES MD Ot Z88.0 ALLERGY STATUS TO PENICILLIN 11/24/2018 NELSON CURRY DO Ot A04.71 ENTEROCOLITIS DUE TO CLOSTRIDIUM DIFFICI 11/24/2018 NELSON CURRY DO Ot B37.49 OTHER UROGENITAL CANDIDIASIS 11/24/2018 NELSON CURRY DO Ot B96.89 OTH BACTERIAL AGENTS THE CAUSE OF DIS 11/24/2018 NELSON CURRY DO Ot E78.00 PURE HYPERCHOLESTEROLEMIA, UNSPECIFIED 11/24/2018 MERT CURRY DOI Ot E83.42 HYPOMAGNESEMIA 11/24/2018 MERT CURRY DOI Ot F03.90 UNSPECIFIED DEMENTIA WITHOUT BEHAVIORAL 11/24/2018 NELSON CURRY DO Ot F32.9 MAJOR DEPRESSIVE DISORDER, SINGLE EPISOD 11/24/2018 MERT CURRY DOI Ot F41.9 ANXIETY DISORDER, UNSPECIFIED 11/24/2018 MERT CURRY DOI Ot I10 ESSENTIAL (PRIMARY) HYPERTENSION 11/24/2018 NELSON CURRY DO Ot M19.91 PRIMARY OSTEOARTHRITIS, UNSPECIFIED SITE 11/24/2018 MERT CURRY DOI Ot 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 11/24/2018 NELSNO CURRY DO Ot N39.0 URINARY TRACT INFECTION, SITE NOT SPECIF 11/24/2018 NELSON CURRY DO Ot R41.0 DISORIENTATION, UNSPECIFIED 11/24/2018 MERT CURRY DOI Ot R54 AGE- RELATED PHYSICAL DEBILITY 11/24/2018 NELSON CURRY DO Ot Z66 DO NOT RESUSCITATE 11/24/2018 NELSON CURRY DO Ot Z79.899 OTHER [facility] (CURRENT) DRUG THERAPY 11/24/2018 NELSON CURRY DO Ot Z86.718 PERSONAL HISTORY OF OTHER VENOUS THROMBO 11/24/2018 NELSON CURRY DO Ot Z97.4 PRESENCE OF EXTERNAL HEARING-AID Procedures Code Description Performed By Performed On 79.15 CLOSED RED-INT FIX FEMUR 01/16/2013 [id number] INSERTION OF INFUSION DEV INTO SUP VENA [...] FOR INFLUENZA A AND B ANTIGENS BY [facility] Comprehensive metabolic panel - 08/08/17 22:35 Serum [...] INFLUENZA A AND B ANTIGENS BY IA NRG Automated blood complete blood count (hemogram) panel [...] NRG Blood erythrocyte morphology finding identification NORMAL [facility] Comprehensive metabolic panel - 08/29/18 12:36 Serum [...] - 08/29/18 12:36 Bacterial blood culture [facility] Complete blood count (CBC) with [...] culture - 10/11/18 17:33 Bacterial urine culture [id number] NRG COLONY COUNT 50,000 CFU/ML NRG FTX;REPORTABLE [...] RESULTS NEGATIVE FOR ANTIGEN AND TOXIN A/B [facility] Stool bacteria identification by culture - 11/15/18 [...] urinalysis with reflex to culture YES NRG Bacterial urine culture - 11/21/18 12:47 Bacterial urine culture 3 OR MORE NRG COLONY COUNT 40,000 CFU/ML NRG FTX;REPORTABLE SUGGESTING PROBABLE COLLECTION NRG FREE TEXT ENTRY 2 CONTAMINATION WITH SKIN RAMON NRG FREE TEXT ENTRY 3 NO SUSCEPTIBILITY PERFORMED NRG Comprehensive metabolic panel - 11/21/18 12:50 Serum [...] - 11/21/18 12:50 Magnesium 1.2 mg/dL 1.8-2.4 Complete blood count (CBC) with automated white blood cell (WBC) differential - 11/22/18 04:38 Blood leukocytes automated count (number/volume) 7.8 10*3/uL 4.3-11.0 Blood erythrocytes automated count (number/volume) 3.79 10*6/uL 4.35-5.85 Venous blood hemoglobin measurement (mass/volume) 10.6 g/dL 11.5-16.0 Blood hematocrit (volume fraction) 33 % 35-52 Automated erythrocyte mean corpuscular volume 88 [foz_us] 80-99 Automated erythrocyte mean corpuscular hemoglobin (mass per erythrocyte) 28 pg 25-34 Automated erythrocyte mean corpuscular hemoglobin concentration measurement (mass/volume) 32 g/dL 32-36 Automated erythrocyte distribution width ratio 15.7 % 10.0- 14.5 Automated blood platelet count (count/volume) 220 10*3/uL 130-400 Automated blood platelet mean volume measurement 10.9 [foz_us] 7.4-10.4 Automated blood neutrophils/100 leukocytes 67 % 42-75 Automated blood lymphocytes/100 leukocytes 18 % 12-44 Blood monocytes/100 leukocytes 11 % 0-12 Automated blood eosinophils/100 leukocytes 4 % 0-10 Automated blood basophils/100 leukocytes 0 % 0-10 Blood neutrophils automated count (number/volume) 5.2 10*3 1.8-7.8 Blood lymphocytes automated count (number/volume) 1.4 10*3 1.0-4.0 Blood monocytes automated count (number/volume) 0.9 10*3 0.0- 1.0 Automated eosinophil count 0.3 10*3/uL 0.0-0.3 Automated blood basophil count (count/volume) 0.0 10*3/uL 0.0-0.1 Whole blood basic metabolic panel - 11/22/18 04:38 Serum or plasma sodium measurement (moles/volume) 137 mmol/L 135-145 Serum or plasma potassium measurement (moles/volume) 4.0 mmol/L 3.6-5.0 Serum or plasma chloride measurement (moles/volume) 104 mmol/L 98-107 Carbon dioxide 26 mmol/L 21-32 Serum or plasma anion gap determination (moles/volume) 7 mmol/L 5-14 Serum or plasma urea nitrogen measurement (mass/volume) 12 mg/dL 7-18 Serum or plasma creatinine measurement (mass/volume) 0.64 mg/dL 0.60-1.30 Serum or plasma urea nitrogen/creatinine mass ratio 19 NRG Serum or plasma creatinine measurement with calculation of estimated glomerular filtration rate > NRG Serum or plasma glucose measurement (mass/volume) 95 mg/dL 70-105 Serum or plasma calcium measurement (mass/volume) 9.2 mg/dL 8.5-10.1 Magnesium - 11/22/18 04:38 Magnesium 1.8 mg/dL 1.8-2.4 C DIFFICILE AG + TOXIN A/B. - 11/22/18 13:05 RESULTS NEGATIVE FOR ANTIGEN AND TOXIN A/B [facility] Complete blood count (CBC) with automated white blood cell (WBC) differential - 11/23/18 05:05 Blood leukocytes automated count (number/volume) 7.1 10*3/uL 4.3-11.0 Blood erythrocytes automated count (number/volume) 4.14 10*6/uL 4.35-5.85 Venous blood hemoglobin measurement (mass/volume) 11.5 g/dL 11.5-16.0 Blood hematocrit (volume fraction) 36 % 35-52 Automated erythrocyte mean corpuscular volume 87 [foz_us] 80-99 Automated erythrocyte mean corpuscular hemoglobin (mass per erythrocyte) 28 pg 25-34 Automated erythrocyte mean corpuscular hemoglobin concentration measurement (mass/volume) 32 g/dL 32-36 Automated erythrocyte distribution width ratio 16.0 % 10.0- 14.5 Automated blood platelet count (count/volume) 252 10*3/uL 130-400 Automated blood platelet mean volume measurement 11.0 [foz_us] 7.4-10.4 Automated blood neutrophils/100 leukocytes 59 % 42-75 Automated blood lymphocytes/100 leukocytes 25 % 12-44 Blood monocytes/100 leukocytes 10 % 0-12 Automated blood eosinophils/100 leukocytes 5 % 0-10 Automated blood basophils/100 leukocytes 0 % 0-10 Blood neutrophils automated count (number/volume) 4.2 10*3 1.8-7.8 Blood lymphocytes automated count (number/volume) 1.8 10*3 1.0-4.0 Blood monocytes automated count (number/volume) 0.7 10*3 0.0- 1.0 Automated eosinophil count 0.4 10*3/uL 0.0-0.3 Automated blood basophil count (count/volume) 0.0 10*3/uL 0.0-0.1 Comprehensive metabolic panel - 11/23/18 05:05 Serum or plasma sodium measurement (moles/volume) 139 mmol/L 135-145 Serum or plasma potassium measurement (moles/volume) 3.9 mmol/L 3.6-5.0 Serum or plasma chloride measurement (moles/volume) 102 mmol/L 98-107 Carbon dioxide 28 mmol/L 21-32 Serum or plasma anion gap determination (moles/volume) 9 mmol/L 5-14 Serum or plasma urea nitrogen measurement (mass/volume) 9 mg/dL 7-18 Serum or plasma creatinine measurement (mass/volume) 0.61 mg/dL 0.60-1.30 Serum or plasma urea nitrogen/creatinine mass ratio 15 NRG Serum or plasma creatinine measurement with calculation of estimated glomerular filtration rate > NRG Serum or plasma glucose measurement (mass/volume) 79 mg/dL 70-105 Serum or plasma calcium measurement (mass/volume) 9.3 mg/dL 8.5-10.1 Serum or plasma total bilirubin measurement (mass/volume) 0.3 mg/dL 0.1-1.0 Serum or plasma alkaline phosphatase measurement (enzymatic activity/volume) 59 U/L 40-136 Serum or plasma aspartate aminotransferase measurement (enzymatic activity/volume) 15 U/L 5-34 Serum or plasma alanine aminotransferase measurement (enzymatic activity/volume) 6 U/L 0-55 Serum or plasma protein measurement (mass/volume) 5.4 g/dL 6.4-8.2 Serum or plasma albumin measurement (mass/volume) 2.7 g/dL 3.2-4.5 CALCIUM CORRECTED 10.3 mg/dL 8.5-10.1 Complete blood count (CBC) with automated white blood cell (WBC) differential - 12/04/18 08:15 Blood leukocytes automated count (number/volume) 7.3 10*3/uL 4.3-11.0 Blood erythrocytes automated count (number/volume) 5.00 10*6/uL 4.35-5.85 Venous blood hemoglobin measurement (mass/volume) 14.2 g/dL 11.5-16.0 Blood hematocrit (volume fraction) 43 % 35-52 Automated erythrocyte mean corpuscular volume 87 [foz_us] 80-99 Automated erythrocyte mean corpuscular hemoglobin (mass per erythrocyte) 28 pg 25-34 Automated erythrocyte mean corpuscular hemoglobin concentration measurement (mass/volume) 33 g/dL 32-36 Automated erythrocyte distribution width ratio 18.1 % 10.0- 14.5 Automated blood platelet count (count/volume) 383 10*3/uL 130-400 Automated blood platelet mean volume measurement 10.5 [foz_us] 7.4-10.4 Automated blood neutrophils/100 leukocytes 71 % 42-75 Automated blood lymphocytes/100 leukocytes 17 % 12-44 Blood monocytes/100 leukocytes 10 % 0-12 Automated blood eosinophils/100 leukocytes 3 % 0-10 Automated blood basophils/100 leukocytes 0 % 0-10 Blood neutrophils automated count (number/volume) 5.2 10*3 1.8-7.8 Blood lymphocytes automated count (number/volume) 1.2 10*3 1.0-4.0 Blood monocytes automated count (number/volume) 0.7 10*3 0.0- 1.0 Automated eosinophil count 0.2 10*3/uL 0.0-0.3 Automated blood basophil count (count/volume) 0.0 10*3/uL 0.0-0.1 Complete urinalysis with reflex to culture - 12/04/18 08:25 Urine color determination YELLOW NRG Urine clarity [...] NEGATIVE Urine nitrite detection by test strip POSITIVE NEGATIVE Urine total bilirubin detection by test [...] detection in urine sediment by light microscopy >50 NRG Crystals detection in urine sediment by light microscopy NONE NRG Casts detection in urine sediment by light microscopy NONE NRG Mucus detection in urine sediment by light microscopy NEGATIVE NRG Complete urinalysis with reflex to culture YES NRG Comprehensive metabolic panel - 12/04/18 08:40 Serum or plasma sodium measurement (moles/volume) 136 mmol/L 135-145 Serum or plasma potassium measurement (moles/volume) 4.0 mmol/L 3.6-5.0 Serum or plasma chloride measurement (moles/volume) 102 mmol/L 98-107 Carbon dioxide 23 mmol/L 21-32 [...] NRG Serum or plasma glucose measurement (mass/volume) 130 mg/dL 70-105 Serum or plasma calcium measurement (mass/volume) 9.8 mg/dL 8.5-10.1 Serum or plasma total bilirubin measurement (mass/volume) 0.4 mg/dL 0.1-1.0 Serum or plasma alkaline phosphatase measurement (enzymatic activity/volume) 70 U/L 40-136 Serum or plasma aspartate aminotransferase measurement (enzymatic activity/volume) 15 U/L 5-34 Serum or plasma alanine aminotransferase measurement (enzymatic activity/volume) 12 U/L 0-55 Serum or plasma protein measurement (mass/volume) 6.7 g/dL 6.4-8.2 Serum or plasma albumin measurement (mass/volume) 3.4 g/dL 3.2-4.5 CALCIUM CORRECTED 10.3 mg/dL 8.5-10.1 Serum or plasma troponin i.cardiac measurement (mass/volume) - 12/04/18 08:40 Serum or plasma troponin i.cardiac measurement (mass/volume) 0.118 ng/mL <0.028 Blood lactic acid measurement (moles/volume) - 12/04/18 11:13 Blood lactic acid measurement (moles/volume) 2.84 mmol/L 0.50- 2.00 Encounters ACCT No. Visit Date/Time Discharge Status Pt. Type Provider Facility Loc./Unit Complaint [id number] 09/19/2018 18:37:00 Document Registration [id number] 09/19/2018 17:23:00 09/22/2018 12:00:00 DIS Inpatient Nelson Curry [facility] ICU [id number] 09/19/2018 17:48:38 Document Registration [id number] 11/21/2018 15:35:00 11/24/2018 14:20:00 DIS Outpatient NELSON CURRY DO [facility] 4TH CONFUSION,UTI,HYPOMAGNESIUM,HTN [id number] 11/15/2018 09:14:00 11/15/2018 12:00:00 DIS Emergency JERSON BOWLES MD [facility] ER DIARRHEA X 2 WEEKS [id number] 10/11/2018 16:55:00 10/11/2018 19:10:00 DIS Emergency ARIELA WALLS Marianela CHEN [facility] ER CONFUSION [id number] 09/19/2018 14:50:00 09/19/2018 18:07:00 DIS Emergency JAE MOREAU DION [facility] ER FEVER;AMS [id number] 08/29/2018 13:55:00 09/01/2018 10:50:00 DIS Inpatient SHELLIE OLIVIER MD Via [address] ANXIETY,UTI,FEVER [id number] 04/13/2018 11:49:00 04/17/2018 16:55:00 DIS Outpatient SHELLIE OLIVIER MD Via [address] UTI,SEPSIS [id number] 08/09/2017 00:01:00 08/13/2017 11:35:00 DIS Inpatient SHELLIE OLIVIER MD Via [address] SEPSIS,FEVER,HYPOXIA,S/P FALL, R PELVIS FX,AMS [id number] 10/29/2016 08:14:00 10/29/2016 23:59:59 CLS Outpatient GEORGE TEIXEIRA [facility] LAB ELEVATED HCB LOW WBC [id number] 10/21/2015 09:11:00 10/24/2015 14:30:00 DIS Inpatient NELSON CURRY DO Via [address] AMS [id number] 01/21/2015 15:19:00 01/21/2015 16:54:00 DIS Emergency JERSON BOWLES MD [facility] ER FALL/HEAD LAC [id number] 01/11/2015 12:43:00 01/21/2015 13:18:00 DIS Inpatient ARIAN SALINAS MD Via [address] SWB--UTI/ADVACING DEMENTIA [id number] 01/08/2015 08:50:00 01/11/2015 12:35:00 DIS Inpatient ARIAN SALINAS MD Via [address] ALTERED MENTAL STATUS;UNCONTROLLED HTN;UTI;HYPOMAG [id number] 10/18/2014 08:24:00 10/18/2014 13:54:00 DIS Emergency HIRAM CABA, AZALEA Lowe [facility] ER CONFUSION [id number] 04/15/2014 15:50:00 04/16/2014 17:35:00 DIS Inpatient ARIAN SALINAS MD [facility] 4TH UTI [id number] 01/27/2014 14:23:00 01/29/2014 13:55:00 DIS Inpatient ARIAN SALINAS MD Via [address] MARKED ELECTROLYTE ABNORMALITIES,AMS [id number] 05/27/2013 12:00:00 05/27/2013 23:59:59 CLS Outpatient ARIAN SALINAS MD [facility] HIP FX, COUMADIN THERAPY [id number] 04/28/2013 11:30:00 04/28/2013 23:59:59 CLS Outpatient ARIAN SALINAS MD [facility] ANTICOAG THERAPY [id number] 04/08/2013 14:48:00 04/08/2013 23:59:59 CLS Outpatient [id number] 03/18/2013 13:59:00 03/18/2013 23:59:59 CLS Outpatient [id number] 02/18/2013 13:42:00 02/18/2013 23:59:59 CLS Outpatient [id number] 01/14/2013 19:30:00 01/22/2013 16:00:00 DIS Inpatient MOSES MCKEON MD Via [facility] SURGICAL R HIP FX [id number] 12/04/2018 08:01:00 ACT Emergency ROSEMARY LOMBARDI MD Via [facility] ER UNRESPONSIVE
--- OUTSIDE RECORDS SUMMARY | 2018-12-04 23:55 | XMS REPORT | Continuity of Care Document ---
Demographics Preferred Language Unknown Marital Status Unknown Synagogue Affiliation Unknown Race Unknown Ethnic Group Unknown Author Organization Unknown Address Unknown Phone Unavailable Allergies Active Description Code Type Severity Reaction Onset Reported/Identified Relationship to Patient Clinical Status Yes PENICILLINS UNKNOWN UNKNOWN Yes Penicillins [id number] Drug Allergy Severe EDEMA 04/13/2018 Medications Medication [...] E78.00 PURE HYPERCHOLESTEROLEMIA, UNSPECIFIED 08/13/2017 CHARLINE CABA, SEHLLIE Donato Ot E87.6 HYPOKALEMIA 08/13/2017 CHARLINE CABA, [...] SHELLIE OLIVIER MD Ot Y92.000 [facility] NON-INSTITUT (PRIVATE) R 08/13/2017 SHELLIE OLIVIER MD Ot Y92.003 [facility] NON-INSTITUT (PRIVATE) R 08/13/2017 SHELLIE [...] UNSPECIFIED DISLOCATION OF RIGHT ULNOHUM 08/13/2017 SHELLIE OLVIIER MD Ot S60.221A CONTUSION OF RIGHT HAND, [...] SHELLIE OLIVIER MD Ot Y92.000 [facility] NON-INSTITUT (PRIVATE) R 08/13/2017 SHELLIE OLIVIER MD Ot Y92.003 [facility] NON-INSTITUT (PRIVATE) R 08/13/2017 SHELLIE [...] F03.90 UNSPECIFIED DEMENTIA WITHOUT BEHAVIORAL 04/18/2018 SHELLIE OLIVIRE MD Ot F05 DELIRIUM DUE TO KNOWN [...] MD Ot B37.7 CANDIDAL SEPSIS 09/01/2018 SHELLIE OLIVEIR MD Ot E78.00 PURE HYPERCHOLESTEROLEMIA, UNSPECIFIED 09/01/2018 SHELLIE OLIVIER MD Ot E87.1 HYPO-OSMOLALITY AND HYPONATREMIA 09/01/2018 SHELLIE OLIVIER MD Ot F03.90 UNSPECIFIED DEMENTIA WITHOUT BEHAVIORAL 09/01/2018 SHELLIE OLIVIER MD Ot F32.9 MAJOR DEPRESSIVE DISORDER, SINGLE EPISOD 09/01/2018 SHELLIE OLIVIER MD Ot F41.9 ANXIETY DISORDER, UNSPECIFIED 09/01/2018 SHELLIE OLIVIER MD, Ot I10 ESSENTIAL (PRIMARY) HYPERTENSION [...] Z99.3 DEPENDENCE ON WHEELCHAIR 09/19/2018 PRIETO, JAE SUPERVISOR ROSE GRADING Ot E78.00 PURE HYPERCHOLESTEROLEMIA, UNSPECIFIED 09/19/2018 PRIETO, JAE SUPERVISOR ROSE GRADING Ot F03.90 UNSPECIFIED DEMENTIA WITHOUT BEHAVIORAL 09/19/2018 PRIETO, JAE SUPERVISOR ROSE GRADING Ot F32.9 MAJOR DEPRESSIVE DISORDER, SINGLE EPISOD 09/19/2018 PRIETO, JAE SUPERVISOR ROSE GRADING Ot F41.9 ANXIETY DISORDER, UNSPECIFIED 09/19/2018 PRIETO, JAE SUPERVISOR ROSE GRADING Ot I10 ESSENTIAL (PRIMARY) HYPERTENSION 09/19/2018 PRIETO, JAE SUPERVISOR ROSE GRADING Ot 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 09/19/2018 PRIETO, JAE SUPERVISOR ROSE GRADING Ot N39.0 URINARY TRACT INFECTION, SITE NOT SPECIF 09/19/2018 PRIETO JAE SUPERVISOR ROSE GRADING Ot R41.82 ALTERED MENTAL STATUS, UNSPECIFIED 09/19/2018 PRIETO, JAE SUPERVISOR ROSE GRADING Ot Z82.49 FAMILY HX OF ISCHEM HEART DIS AND OTH DI 09/19/2018 PRIETO JAE SUPERVISOR ROSE GRADING Ot Z86.718 PERSONAL HISTORY OF OTHER VENOUS THROMBO 09/19/2018 PRIETO, JAE SUPERVISOR ROSE GRADING Ot Z87.440 PERSONAL HISTORY OF URINARY (TRACT) [...] F41.9 ANXIETY DISORDER, UNSPECIFIED 09/24/2018 PRIETO, JAE SUPERVISOR ROSE GRADING Ot I10 ESSENTIAL (PRIMARY) HYPERTENSION 09/24/2018 PRIETO, JAE SUPERVISOR ROSE GRADING Ot 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 09/24/2018 PRIETO, JAE SUPERVISOR ROSE GRADING Ot N39.0 URINARY TRACT INFECTION, SITE NOT SPECIF 09/24/2018 PRIETO, JAE SUPERVISOR ROSE GRADING Ot R41.82 ALTERED MENTAL STATUS, UNSPECIFIED 09/24/2018 PRIETO, JAE SUPERVISOR ROSE GRADING Ot Z82.49 FAMILY HX OF ISCHEM HEART DIS AND OTH DI 09/24/2018 PRIETO, JAE SUPERVISOR ROSE GRADING Ot Z86.718 PERSONAL HISTORY OF OTHER VENOUS THROMBO 09/24/2018 PRIETO, JAE SUPERVISOR ROSE GRADING Ot Z87.440 PERSONAL HISTORY OF URINARY (TRACT) INFE 09/24/2018 PRIETO, JAE SUPERVISOR ROSE GRADING Ot Z88.0 ALLERGY STATUS TO PENICILLIN 09/24/2018 PRIETO, JAE SUPERVISOR ROSE GRADING Ot Z98.890 OTHER SPECIFIED POSTPROCEDURAL STATES 09/27/2018 PRIETO, JAE SUPERVISOR ROSE GRADING Ot E78.00 PURE HYPERCHOLESTEROLEMIA, UNSPECIFIED 09/27/2018 PRIETO, JAE SUPERVISOR ROSE GRADING Ot F03.90 UNSPECIFIED DEMENTIA WITHOUT BEHAVIORAL 09/27/2018 PRIETO, JAE SUPERVISOR ROSE GRADING Ot F32.9 MAJOR DEPRESSIVE DISORDER, SINGLE EPISOD 09/27/2018 PRIETO, JAE SUPERVISOR ROSE GRADING Ot F41.9 ANXIETY DISORDER, UNSPECIFIED 09/27/2018 PRIETO, JAE SUPERVISOR ROSE GRADING Ot I10 ESSENTIAL (PRIMARY) HYPERTENSION 09/27/2018 PRIETO, JAE SUPERVISOR ROSE GRADING Ot 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 09/27/2018 PRIETO, JAE SUPERVISOR ROSE GRADING Ot N39.0 URINARY TRACT INFECTION, SITE NOT SPECIF 09/27/2018 PRIETO, JAE SUPERVISOR ROSE GRADING Ot R41.82 ALTERED MENTAL STATUS, UNSPECIFIED 09/27/2018 PRIETO, JAE SUPERVISOR ROSE GRADING Ot Z82.49 FAMILY HX OF ISCHEM HEART DIS AND OTH DI 09/27/2018 PRIETO, JAE SUPERVISOR ROSE GRADING Ot Z86.718 PERSONAL HISTORY OF OTHER VENOUS THROMBO 09/27/2018 PRIETO, JAE SUPERVISOR ROSE GRADING Ot Z87.440 PERSONAL HISTORY OF URINARY (TRACT) INFE 09/27/2018 PRIETO, JAE SUPERVISOR ROSE GRADING Ot Z88.0 ALLERGY STATUS TO PENICILLIN 09/27/2018 PRIETO, JAE SUPERVISOR ROSE GRADING Ot Z98.890 OTHER SPECIFIED POSTPROCEDURAL STATES 10/11/2018 WALLS, PETER J VENEER SLICING MACHINE OPERATOR Ot E78.00 PURE HYPERCHOLESTEROLEMIA, UNSPECIFIED 10/11/2018 ARIELA WALLS VENEER SLICING MACHINE OPERATOR Ot F03.90 UNSPECIFIED DEMENTIA WITHOUT BEHAVIORAL 10/11/2018 ARIELA WALLS VENEER SLICING MACHINE OPERATOR Ot F32.9 MAJOR DEPRESSIVE DISORDER, SINGLE EPISOD 10/11/2018 ARIELA WALLS VENEER SLICING MACHINE OPERATOR Ot F41.9 ANXIETY DISORDER, UNSPECIFIED 10/11/2018 ARIELA WALLS VENEER SLICING MACHINE OPERATOR Ot I10 ESSENTIAL (PRIMARY) HYPERTENSION 10/11/2018 ARIELA WALLS VENEER SLICING MACHINE OPERATOR Ot N39.0 URINARY TRACT INFECTION, SITE NOT SPECIF 10/11/2018 ARIELA WALLS APRN Ot R41.0 DISORIENTATION, UNSPECIFIED 10/11/2018 ARIELA WALLS VENEER SLICING MACHINE OPERATOR Ot R41.82 ALTERED MENTAL STATUS, UNSPECIFIED 10/11/2018 ARIELA WALLS VENEER SLICING MACHINE OPERATOR Ot Z82.49 FAMILY HX OF ISCHEM HEART DIS AND OTH DI 10/11/2018 ARIELA WALLS VENEER SLICING MACHINE OPERATOR Ot Z86.718 PERSONAL HISTORY OF OTHER VENOUS THROMBO 10/11/2018 ARIELA WALLS VENEER SLICING MACHINE OPERATOR Ot Z88.0 ALLERGY STATUS TO PENICILLIN 10/14/2018 ARIELA WALLS APRN Ot E78.00 PURE HYPERCHOLESTEROLEMIA, UNSPECIFIED 10/14/2018 ARIELA WALLS VENEER SLICING MACHINE OPERATOR Ot F03.90 UNSPECIFIED DEMENTIA WITHOUT BEHAVIORAL 10/14/2018 ARIELA WALLS VENEER SLICING MACHINE OPERATOR Ot F32.9 MAJOR DEPRESSIVE DISORDER, SINGLE EPISOD 10/14/2018 ARIELA WALLS VENEER SLICING MACHINE OPERATOR Ot F41.9 ANXIETY DISORDER, UNSPECIFIED 10/14/2018 ARIELA WALLS VENEER SLICING MACHINE OPERATOR Ot I10 ESSENTIAL (PRIMARY) HYPERTENSION 10/14/2018 ARIELA WALLS VENEER SLICING MACHINE OPERATOR Ot N39.0 URINARY TRACT INFECTION, SITE NOT SPECIF 10/14/2018 ARIELA WALLS VENEER SLICING MACHINE OPERATOR Ot R41.0 DISORIENTATION, UNSPECIFIED 10/14/2018 ARIELA WALLS VENEER SLICING MACHINE OPERATOR Ot R41.82 ALTERED MENTAL STATUS, UNSPECIFIED 10/14/2018 ARIELA WALLS VENEER SLICING MACHINE OPERATOR Ot Z82.49 FAMILY HX OF ISCHEM HEART DIS AND OTH DI 10/14/2018 ARIELA WALLS VENEER SLICING MACHINE OPERATOR Ot Z86.718 PERSONAL HISTORY OF OTHER VENOUS THROMBO 10/14/2018 ARIELA WALLS VENEER SLICING MACHINE OPERATOR Ot Z88.0 ALLERGY STATUS TO PENICILLIN 11/15/2018 [...] 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 11/24/2018 NELSON CURRY DO Ot N39.0 URINARY TRACT INFECTION, SITE NOT SPECIF 11/24/2018 NELSON CURRY DO Ot R41.0 DISORIENTATION, UNSPECIFIED 11/24/2018 MERT CURRY DOI Ot R54 AGE- RELATED PHYSICAL DEBILITY 11/24/2018 NELSON CURRY DO Ot Z66 DO NOT RESUSCITATE 11/24/2018 NELSON CURRY DO Ot Z79.899 OTHER [facility] (CURRENT) DRUG THERAPY 11/24/2018 NELSON CURRY DO Ot Z86.718 PERSONAL HISTORY OF OTHER VENOUS THROMBO 11/24/2018 NELSON CURRY DO Ot Z97.4 PRESENCE OF EXTERNAL HEARING-AID Procedures Code Description Performed By Performed On 79.15 CLOSED RED-INT FIX FEMUR 01/16/2013 14LY33R INSERTION OF INFUSION DEV INTO SUP VENA [...] FOR INFLUENZA A AND B ANTIGENS BY [facility] Comprehensive metabolic panel - 08/08/17 22:35 [...] NRG Blood erythrocyte morphology finding identification NORMAL [facility] Comprehensive metabolic panel - 08/29/18 12:36 [...] - 08/29/18 12:36 Bacterial blood culture [facility] Complete blood count (CBC) with [...] culture - 10/11/18 17:33 Bacterial urine culture [id number] NRG COLONY COUNT 50,000 CFU/ML NRG FTX;REPORTABLE [...] RESULTS NEGATIVE FOR ANTIGEN AND TOXIN A/B [facility] Stool bacteria identification by culture - [...] RESULTS NEGATIVE FOR ANTIGEN AND TOXIN A/B [facility] Complete blood count (CBC) with automated [...] acid measurement (moles/volume) 2.84 mmol/L 0.50- 2.00 Serum or plasma lactate measurement (moles/volume) - 12/04/18 13:27 Serum or plasma lactate measurement (moles/volume) 1.68 mmol/L 0.50-2.00 Encounters ACCT No. Visit Date/Time Discharge Status Pt. Type Provider Facility Loc./Unit Complaint [id number] 09/19/2018 18:37:00 Document Registration [id number] 09/19/2018 17:23:00 09/22/2018 12:00:00 DIS Inpatient Nelson Curry [facility] ICU [id number] 09/19/2018 17:48:38 Document Registration [id number] 11/21/2018 15:35:00 11/24/2018 14:20:00 DIS Outpatient NELSON CURRY DO [facility] 4TH CONFUSION,UTI,HYPOMAGNESIUM,HTN [id number] 11/15/2018 09:14:00 11/15/2018 12:00:00 DIS Emergency JERSON BOWLES MD Via [facility] ER DIARRHEA X 2 WEEKS [id number] 10/11/2018 16:55:00 10/11/2018 19:10:00 DIS Emergency ARIELA WALLS APRN Via [facility] ER CONFUSION [id number] 09/19/2018 14:50:00 09/19/2018 18:07:00 DIS Emergency JAE MOREAU [facility] ER FEVER;AMS [id number] 08/29/2018 13:55:00 09/01/2018 10:50:00 DIS Inpatient SHELLIE OLIVIER MD [facility] 4TH ANXIETY,UTI,FEVER [id number] 04/13/2018 11:49:00 04/17/2018 16:55:00 DIS Outpatient SHELLIE OLIVIER MD [facility] 4TH UTI,SEPSIS [id number] 08/09/2017 00:01:00 08/13/2017 11:35:00 DIS Inpatient SHELLIE OLIVIER MD [facility] 4TH SEPSIS,FEVER,HYPOXIA,S/P FALL, R PELVIS FX,AMS [id number] 10/29/2016 08:14:00 10/29/2016 23:59:59 CLS Outpatient GEORGE TEIXEIRA [facility] LAB ELEVATED HCB LOW WBC [id number] 10/21/2015 09:11:00 10/24/2015 14:30:00 DIS Inpatient NELSON CURRY DO [facility] 4TH AMS [id number] 01/21/2015 15:19:00 01/21/2015 16:54:00 DIS Emergency JERSON BOWLES MD [facility] ER FALL/HEAD LAC [id number] 01/11/2015 12:43:00 01/21/2015 13:18:00 DIS Inpatient ARIAN SALINAS MD [facility] 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 [id number] 01/08/2015 08:50:00 01/11/2015 12:35:00 DIS Inpatient ARIAN SALINAS MD [facility] 4TH ALTERED MENTAL STATUS;UNCONTROLLED HTN;UTI;HYPOMAG [id number] 10/18/2014 08:24:00 10/18/2014 13:54:00 DIS Emergency AZALEA AGNDHI MD [facility] ER CONFUSION [id number] 04/15/2014 15:50:00 04/16/2014 17:35:00 DIS Inpatient ARIAN SALINAS MD [facility] 4TH UTI [id number] 01/27/2014 14:23:00 01/29/2014 13:55:00 DIS Inpatient ARIAN SALINAS MD [facility] 4TH MARKED ELECTROLYTE ABNORMALITIES,AMS [id number] 05/27/2013 12:00:00 05/27/2013 23:59:59 CLS Outpatient ARIAN SALINAS MD [facility] HH HIP FX, COUMADIN THERAPY [id number] 04/28/2013 11:30:00 04/28/2013 23:59:59 CLS Outpatient ARIAN SALINAS MD Via [facility] ANTICOAG THERAPY [id number] 04/08/2013 14:48:00 04/08/2013 23:59:59 CLS Outpatient [id number] 03/18/2013 13:59:00 03/18/2013 23:59:59 CLS Outpatient [id number] 02/18/2013 13:42:00 02/18/2013 23:59:59 CLS Outpatient [id number] 01/14/2013 19:30:00 01/22/2013 16:00:00 DIS Inpatient MOSES MCKEON MD [facility] SURGICAL R HIP FX [id number] 12/04/2018 08:01:00 ACT Emergency HARJIT CABA, ROSEMARY Castorena [facility] ER UNRESPONSIVE
[2018-12-05] VITALS: BP 138/71
[2018-12-05] MEDS: hydrALAZINE (APESOLINE) 20 MG/ML VIAL IV SCH ×3 (00:07→12:49)
[2018-12-05] MEDS: NS IV 1000 ML 1,000 ML IV SCH (02:08)
[2018-12-05 04:00] VITALS: BP 198/86
[2018-12-05 05:57] LABS: BASOPHILS % (AUTO) 0 % (0-10); EOSINOPHILS % (AUTO) 0 % (0-10); HEMATOCRIT 41 % (35-52); LYMPHOCYTES # (AUTO) 1.4 X 10^3 (1.0-4.0); LYMPHOCYTES % (AUTO) 12 % (12-44); MEAN CORPUSCULAR HEMOGLOBIN 28 PG (25-34); MEAN CORPUSCULAR HGB CONC 32 G/DL (32-36); MEAN CORPUSCULAR VOLUME 87 FL (80-99); MEAN PLATELET VOLUME 10.3 FL (7.4-10.4); MONOCYTES % (AUTO) 8 % (0-12); NEUTROPHILS # (AUTO) 9.6 X 10^3 (1.8-7.8); NEUTROPHILS % (AUTO) 80 % (42-75); PLATELET COUNT 334 10^3/uL (130-400); RED CELL DISTRIBUTION WIDTH 17.3 % (10.0-14.5)
[2018-12-05 06:16] LABS: ALANINE AMINOTRANSFERASE 11 U/L (0-55); ALBUMIN 3.3 GM/DL (3.2-4.5); ALKALINE PHOSPHATASE 68 U/L (40-136); BILIRUBIN,TOTAL 0.4 MG/DL (0.1-1.0); BUN/CREATININE RATIO 26; CALCIUM 9.5 MG/DL (8.5-10.1); CARBON DIOXIDE 23 MMOL/L (21-32); CHLORIDE 106 MMOL/L (98-107); CREATININE SERUM 0.69 MG/DL (0.60-1.30); GFR ESTIMATED > 60; GLUCOSE 120 MG/DL (70-105); POTASSIUM 4.4 MMOL/L (3.6-5.0); SODIUM 139 MMOL/L (135-145); TOTAL PROTEIN 6.2 GM/DL (6.4-8.2)
[2018-12-05 08:00] VITALS: BP 163/73
[2018-12-05] MEDS ORDERED: cefTRIAXone 1,000 MG/SWFI 10 ML IV PUSH IV SCH ×2 (09:30)
[2018-12-05] MEDS: LEVETIRACETAM 500 MG/NS 100 ML IVPB IV SCH ×2 (09:56)
[2018-12-05] MEDS: ONDANSETRON 4 MG/2 ML (SDV) Z0FRAN IVP PRN ×2 (10:12→11:33)
--- NOTE | 2018-12-05 10:12 | Progress Note ---
Subjective Date Seen by a Provider: Dec 05, 2018 Time Seen by a Provider: 10:30 Subjective/Events-last exam SEE DC SUMMARY Focused Exam Lactate Level 12/04/18 11:13: Lactic Acid Level 2.84*H 12/04/18 13:27: Lactic Acid Level 1.68 Objective Exam Last Set of Vital Signs Vital Signs Date Time Temp Pulse Resp B/P (MAP) Pulse Ox O2 Delivery O2 Flow Rate FiO2 12/05/18 09:03 Nasal Cannula 4.00 12/05/18 07:00 73 12/05/18 04:00 97.6 16 198/86 (123) 96 Capillary Refill : Less Than 3 Seconds I&O Intake and Output 12/05/18 00:00 Intake Total 125 ml Output Total 970 ml Balance -845 ml Intake Oral 0 ml IV Total 125 ml Output Urine Total 970 ml # Voids 1 # Bowel Movements 1 Daily Weight Change Unsure Unsure Results Lab Laboratory Tests 12/04/18 11:13: Lactic Acid Level 2.84*H 12/04/18 13:27: Lactic Acid Level 1.68 12/05/18 05:30: White Blood Count 12.0H, Red Blood Count 4.67, Hemoglobin 13.0, Hematocrit 41, Mean Corpuscular Volume 87, Mean Corpuscular Hemoglobin 28, Mean Corpuscular Hemoglobin Concent 32, Red Cell Distribution Width 17.3H, Platelet Count 334, Mean Platelet Volume 10.3, Neutrophils (%) (Auto) 80H, Lymphocytes (%) (Auto) 12, Monocytes (%) (Auto) 8, Eosinophils (%) (Auto) 0, Basophils (%) (Auto) 0, Neutrophils # (Auto) 9.6H, Lymphocytes # (Auto) 1.4, Monocytes # (Auto) 1.0, Eosinophils # (Auto) 0.0, Basophils # (Auto) 0.0, Sodium Level 139, Potassium Level 4.4, Chloride Level 106, Carbon Dioxide Level 23, Anion Gap 10, Blood Urea Nitrogen 18, Creatinine 0.69, Estimat Glomerular Filtration Rate > 60, BUN/Creatinine Ratio 26, Glucose Level 120H, Calcium Level 9.5, Corrected Calcium 10.1, Total Bilirubin 0.4, Aspartate Amino Transf (AST/SGOT) 20, Alanine Aminotransferase (ALT/SGPT) 11, Alkaline Phosphatase 68, Total Protein 6.2L, Albumin 3.3 Assessment/Plan Assessment/Plan Assess & Plan/Chief Complaint SEE DC SUMMARY Clinical Quality Measures DVT/VTE Risk/Contraindication: Risk Factor Score Per Nursin RFS Level Per Nursing on Admit: 2=Moderate SHELLIE OLIVIER MD Dec 05, 2018 10:12
--- NOTE | 2018-12-05 10:44 | NUR ---
Pt is [employer] and usually takes sacraments but is now sleeping.
--- NOTE | 2018-12-05 11:34 | NUR ---
DR OLIVIER, HERE, AND INSTRUCTED NURSE TO GIVE ADDITIONAL DOSE OF ZOFRAN 4MG IV.
[2018-12-05 12:00] VITALS: BP 184/83
--- NOTE | 2018-12-05 12:46 | Discharge Summary ---
Diagnosis/Chief Complaint Date of Admission Dec 04, 2018 at 11:23 Date of Discharge Discharge Date: Dec 05, 2018 Discharge Time: 12:40 Admission Diagnosis Admission Diagnosis RECURRENT URINARY TRACT INFECTION NEW-ONSET SEIZURE CONFUSION HYPERTENSION CHRONIC WEAKNESS DEMENTIA ANXIETY ESOPHAGEAL REFLUX Discharge Diagnosis RECURRENT URINARY TRACT INFECTION NEW-ONSET SEIZURE CONFUSION HYPERTENSION CHRONIC WEAKNESS DEMENTIA ANXIETY ESOPHAGEAL REFLUX Reason Hospital Visit PT IS COMPLETELY CONFUSED, UNABLE TO ANSWER QUESTIONS TODAY. HER DTR IS IN THE ROOM AND STATES THAT HER MOM WAS IN HER RIGHT STATE OF MIND YESTERDAY, PLAYING CATCH WITH THEIR DOG AND NOT HAVING ANY TROUBLE. HOWEVER, YESTERDAY MORNING THEY NOTICED THAT SHE WAS TWITCHING, NOT ALERT AND SHE WAS UNABLE TO BE AWAKENED. HER FAMILY THEN BROUGHT HER INTO THE HOSPITAL FOR FURTHER EVALUATION. UPON EVALUATION THE EMERGENCY PHYSICIAN FOUND THAT SHE WAS HAVING SEIZURES - SHE WAS GIVEN ATIVAN AND KEPPRA IV. Discharge Summary Discharge Physical Examination Allergies: Coded Allergies: Penicillins (Unverified Allergy, Severe, EDEMA, 12/04/18) Vitals & I&Os Vital Signs Date Time Temp Pulse Resp B/P (MAP) Pulse Ox O2 Delivery O2 Flow Rate FiO2 12/05/18 14:30 78 18 184/83 92 Nasal Cannula 2.00 12/05/18 12:00 97.0 General Appearance: Alert, Cooperative, Other (ORIENTED TO PERSON, NOT PLACE OR TIME - [place]OT[place] ANSWERS TO MY QUESTIONS) HEENT: Atraumatic, Mucous Memb Moist/[place] Respiratory: Clear to Auscultation, Normal Air Movement Cardiovascular: Regular Rate Abdominal: Normal Bowel Sounds, Soft Neuro: Normal Speech, Cranial Nerves 3-12 NL Psych/Mental Status: Other (ALERT, NOT ORIENTED) Hospital Course Was the Problem List Reviewed?: Yes RECURRENT URINARY TRACT INFECTION NEW-ONSET SEIZURE CONFUSION HYPERTENSION CHRONIC WEAKNESS DEMENTIA ANXIETY ESOPHAGEAL REFLUX RECURRENT URINARY TRACT INFECTION - PT STARTED ON IV ROCEPHIN - LAST FEW CULTURE REPORTS SHOW SENSITIVITY TO CEPHALOSPORIN ANTIBIOTICS. NEW-ONSET SEIZURE WITH POSTICTAL CONFUSION - DISCUSSED WITH THE PATIENT'S DTR THAT SHE NEEDS TO BE ON MEDICATION - KEPPRA IV STARTED, TRANSITIONED TO ORAL MEDICATIONS KEPPRA 50MG TWICE DAILY. HYPERTENSION - RESTART ORAL MEDICATIONS. CHRONIC WEAKNESS WITH OA AND DIFFICULTY AMBULATING - DISCUSSED WITH PT - WILL NEED TO HAVE PT PARTICIPATE IN PHYSICAL THERAPY, OCC THERAPY AND SPEECH T HERAPY. - DISCHARGE TO [facility] TODAY [facility] NEED FOR THERAPIES PRIOR TO DISCHARGE TO HOME. DEMENTIA - SUPPORTIVE CARE ONLY AT THIS TIME. ANXIETY - RESTARTED CLONAZEPAM. ESOPHAGEAL REFLUX - RESTART ON PPI DISCUSSED WITH HER DTR - WILL HAVE PT GO TO [facility] FOR THERAPY UPON DISCHARGE, DISCHARGE TO [facility] ON DISCHARGE FOR THERAPY. Pending Labs Discharge Instructions to patient/family Please see electronic discharge instructions given to patient. Discharge Medications Reviewed and agree with Discharge Medication list on patient's Discharge Instruction sheet Clinical Quality Measures DVT/VTE Risk/Contraindication: Risk Factor Score Per Nursin RFS Level Per Nursing on Admit: 2=Moderate SHELLIE OLIVIER MD Dec 05, 2018 12:46
[2018-12-05] MEDS ORDERED: LEVE250T18 PO (12:53)
[2018-12-05] MEDS ORDERED: FLUC150T PO (12:53)
[2018-12-05] MEDS ORDERED: CEPH-507 PO (12:53)
--- NOTE | 2018-12-05 12:56 | Discharge Inst-Skilled Nursing ---
Discharge [facility]-Skilled NF Reconcile Patient Problems Problems Reviewed?: Yes Patient Instructions Patient Problems: urinary tract infection hypertension seizure generalized weakness, malaise Goal: home with family in 14 - 20 days Consult/Follow Up/Orders Follow Up Appt.: [facility] Skilled NF Admit to: [facility] Certification (SNF) I certify that SNF services are required to be given on an inpatient basis because of the above named patient's need for retirement care on a continuing basis for the conditions(s) for which he/she was receiving inpatient hospital services prior to his/her transfer to the SNF. Senior Living Facility Order: Nursing Services, Orthotic And Prosthetic Technician-Evaluate & Treat, Physical Therapy-Evaluate & Treat, Speech Language-Evaluate & Treat Oxygen Delivery Method: Nasal Cannula Discharge Diet: Regular Diet Daily Activity as Tolerated: Yes New & Resume Previous Orders Shellie Davenport Dec 05, 2018 12:53 Medication List: Active Scripts Active Keppra (Levetiracetam) 250 Mg Tablet 250 Mg PO BID Diflucan (Fluconazole) 150 Mg Tablet 150 Mg PO DAILY Keflex (Cephalexin) 500 Mg Capsule 500 Mg PO QID Reported Vitamin C (Ascorbate Calcium) 500 Mg Tablet 500 Mg PO 0630,1800 Probiotic (L.acidoph & Paracasei,B.lactis) 1 Each Capsule 1 Cap PO 0630 Magnesium (Magnesium Oxide) 400 Mg Tablet 400 Mg PO MOWEFR Metoprolol Succinate 25 Mg Tab.er.24h 25 Mg PO 0630,1800 Excedrin Migraine Caplet (Aspirin/Acetaminophen/Caffeine) 1 Each Tablet 1-2 Tab PO Q8H PRN Melatonin 5 Mg Capsule 5 Mg PO 1800 Bisacodyl 5 Mg Tablet.dr 5 Mg PO DAILY PRN Citalopram HBr (Citalopram Hydrobromide) 40 Mg Tablet 40 Mg PO 1800 Meloxicam 15 Mg Tablet 15 Mg PO 0630 Cranberry Plus Vitamin C Sftgl (Cranberry Conc/Ascorbic Acid) 1 Each Capsule 2 Cap PO 1800 Clonazepam 1 Mg Tablet 1 Mg PO 1800 Clonazepam 1 Mg Tablet 2 Mg PO 0630 TAKES 2 (1MG) TABLETS Gummies Children Multivitamin (Pediatric Multivitamin Comb#30) 1 Each Tab.chew 2 Tab.chew PO 1800 Potassium Chloride 10 Meq Tablet.er 20 Meq PO 0630 TAKES 2 (10MEQ) TABLETS Vitamin D3 (Cholecalciferol (Vitamin D3)) 1,000 Unit Capsule 2,000 Unit PO 1800 TAKES 2 (1000 UNIT) CAPSULES Omeprazole 20 Mg Capsule.dr 20 Mg PO 0630 Lab results: Laboratory Tests Test 12/04/18 13:27 12/05/18 05:30 Range/Units Lactic Acid Level 1.68 0.50-2.00 MMOL/L White Blood Count 12.0 H 4.3-11.0 10^3/uL Red Blood Count 4.67 4.35-5.85 10^6/uL Hemoglobin 13.0 11.5-16.0 G/DL Hematocrit 41 35-52 % Mean Corpuscular Volume 87 80-99 FL Mean Corpuscular Hemoglobin 28 25-34 PG Mean Corpuscular Hemoglobin Concent 32 32-36 G/DL Red Cell Distribution Width 17.3 H 10.0-14.5 % Platelet Count 334 130-400 10^3/uL Mean Platelet Volume 10.3 7.4-10.4 FL Neutrophils (%) (Auto) 80 H 42-75 % Lymphocytes (%) (Auto) 12 12-44 % Monocytes (%) (Auto) 8 0-12 % Eosinophils (%) (Auto) 0 0-10 % Basophils (%) (Auto) 0 0-10 % Neutrophils # (Auto) 9.6 H 1.8-7.8 X 10^3 Lymphocytes # (Auto) 1.4 1.0-4.0 X 10^3 Monocytes # (Auto) 1.0 0.0-1.0 X 10^3 Eosinophils # (Auto) 0.0 0.0-0.3 10^3/uL Basophils # (Auto) 0.0 0.0-0.1 10^3/uL Sodium Level 139 135-145 MMOL/L Potassium Level 4.4 3.6-5.0 MMOL/L Chloride Level 106 98-107 MMOL/L Carbon Dioxide Level 23 21-32 MMOL/L Anion Gap 10 5-14 MMOL/L Blood Urea Nitrogen 18 7-18 MG/DL Creatinine 0.69 0.60-1.30 MG/DL Estimat Glomerular Filtration Rate > 60 BUN/Creatinine Ratio 26 Glucose Level 120 H 70-105 MG/DL Calcium Level 9.5 8.5-10.1 MG/DL Corrected Calcium 10.1 8.5-10.1 MG/DL Total Bilirubin 0.4 0.1-1.0 MG/DL Aspartate Amino Transf (AST/SGOT) 20 5-34 U/L Alanine Aminotransferase (ALT/SGPT) 11 0-55 U/L Alkaline Phosphatase 68 40-136 U/L Total Protein 6.2 L 6.4-8.2 GM/DL Albumin 3.3 3.2-4.5 GM/DL My orders: Orders - SHELLIE DAVENPORT MD Ambulate ,, (12/04/18 13:59) Sequential Compression Device (12/04/18 13:59) Dvt/Vte Risk - Notifiy Physici .ONCE (12/04/18 13:59) Metoprolol Succinate (Xl) Tab (Toprol Xl (12/04/18 17:30) Acetaminophen Suppository (Tylenol Suppo (12/04/18 17:30) Metoprolol Succinate (Xl) Tab (Toprol Xl (12/05/18 06:30) Hydralazine Tablet (Apresoline Tablet) (12/04/18 20:45) Telemetry (12/04/18 21:17) Telemetry Nursing Assessment ( (12/04/18 21:17) Hydralazine Injection (Apresoline Inject (12/05/18 00:00) Code/Resuscitation (12/04/18 21:47) Levetiracetam Injection (Keppra Injectio (12/04/18 22:09) Attending Discharge Inpt/Inobs (12/05/18 12:48) SHELLIE DAVENPORT MD Dec 05, 2018 12:56
[2018-12-05] MEDS ORDERED: ONDA4TAB11 PO (12:58)
--- NOTE | 2018-12-05 13:05 | NUR ---
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 I have sent clinical information on this and previous stay. She is accepted and anticipate discharge later this afternoon. Care assessment will be done. Unsure of pick remover time as of yet.
--- NOTE | 2018-12-05 13:20 | NUR ---
CM/SS CARE assessment completed with the patient. It was faxed to [facility] and [facility], copy also retained for the chart. Patient's daughter and RNing updated. [facility] on way to transport.
--- NOTE | 2018-12-05 13:21 | NUR ---
IV to right forearm, flushed et then dc'd by this nurse et placed in sharps container. Flushed easily et no s/s of infiltration noted. Gauze was placed at site with tape.
--- NOTE | 2018-12-05 13:40 | NUR ---
FAMILY INFORMED OF TRANSFER TO [facility]IA [facility], VERBALIZED UNDERSTANDING, TELEMETRY DC, IV DC, PATIENT CONFUSED, NO C/O NAUSEA AT THIS TIME. INCONT URINE
[2018-12-05] MEDS ORDERED: clonazePAM 1 MG (KlonoPIN) TAB PO NR (13:57)
[2018-12-05 14:30] VITALS: BP 184/83
--- NOTE | 2018-12-05 14:30 | NUR ---
DISMISSED PER W/C TO [facility], ACCOMPANIED BY STAFF AND FAMILY, O2 ON PER NC AT 2 LITERS, NO C/O PAIN OR SOB, ATTEMPTED TO CALL REPORT TO [facility], NURSE IS BUSY AND WILL CALL BACK
--- NOTE | 2018-12-05 16:35 | NUR ---
RE[facility]
== END 2018-12-05 14:30 | DRG 101 ==
LOC: EDUNIT# 08:00 → ER 08:01 → 4TH 11:23 → EDPENDDISTM 12-05 12:40
PROVIDERS: ADMIT Family Medicine; ATTEND Family Medicine
DX: R56.9 Unspecified convulsions (principal); N30.00 Acute cystitis without hematuria; R64 Cachexia; I10 Essential (primary) hypertension; E78.00 Pure hypercholesterolemia, unspecified; F03.90 Unspecified dementia, unspecified severity, without behavioral disturbance, psychotic disturbance, mood disturbance, and anxiety; Z66 Do not resuscitate; M81.0 Age-related osteoporosis without current pathological fracture; M19.91 Primary osteoarthritis, unspecified site; F41.9 Anxiety disorder, unspecified; F32.9 Major depressive disorder, single episode, unspecified; H91.93 Unspecified hearing loss, bilateral; Z97.4 Presence of external hearing-aid; Z86.718 Personal history of other venous thrombosis and embolism; K21.9 Gastro-esophageal reflux disease without esophagitis
CPT/HCPCS: 36415; 70450; 71045; 80053; 81000; 83605; 84484; 85025; 87040; 87088; 93005

== ENCOUNTER → 2019-01-02 | Outpatient (CLI) | payer OTHER, MEDICARE ==
[~2019-01-02] MED LIST changes: +ASCO-262 PO; +ASPI-789 PO; +CEPH-507 PO; +FLUC150T PO; +L.AC1CAP6 PO; +LEVE250T18 PO; +MAGN400T39 PO; +ONDA4TAB11 PO
== END ==
LOC: HOSHH 12:49
PROVIDERS: ATTEND Family Medicine
DX: G31.1 Senile degeneration of brain, not elsewhere classified (principal); R19.7 Diarrhea, unspecified
CPT/HCPCS: 87324; 87449